=== PATIENT | female | born 1985 | race African-American/Black ===

== ENCOUNTER 2020-06-14 13:27 | Emergency (ER) | payer OTHER ==
--- OUTSIDE RECORDS SUMMARY | 2020-06-14 13:29 | XMS REPORT | Continuity of Care Document ---
:1985 Author Organization [facility] t Address [address] [place] [address] Care Team Providers Name Role Phone Doctor Unassigned, Name Attending Clinician Unavailable Teri FABIAN, L Attending Clinician Payers Payer Name Policy Type Policy Number Effective Date Expiration Date S ource Problems This patient has no known problems. Allergies, Adverse Reactions, Alerts Allergy Allergy Status Severity Reaction(s) Onset Inactive Treating Comm ents Source Name Type Date Date Clinician tramadol DA Active U 2018- [facility] 1-13 [place] 00:00: d 00 [facility] No Known DA Active U 2017-10 [facility] All[facility]ie 2-15 [place] [facility] 00:00: d 00 [facility] Medications This patient has no known medications. Procedures This patient has no known procedures. Encounters Start End Encounter Admission Attending Care Care Encounter Source Date/Time Date/Time Type Type Clinicians Facility Department ID 2020-02-20 2020-02-20 Orders Doctor CARLOS [id number] 00:00:00 00:00:00 Only Unassigned, JUANY [id number] [place] [facility] [id number] [id number] 2020-02-10 2020-02-10 Orders Doctor BREANNA [id number] 00:00:00 00:00:00 Only Unassigned, JUANY [id number] [place] [id number] [id number] 2020-01-31 2020-01-31 Orders Doctor BREANNA [id number] 00:00:00 00:00:00 Only Unassigned, JUANY [id number] [place] [id number] [id number] 2020-01-29 2020-01-29 Telephone Teri [place] [id number] 00:00:00 00:00:00 [facility] [id number] [facility] [id number] [facility] [phone] es [address] [place] 2020-01-28 2020-01-28 Telephone Teri [facility] [id number] 00:00:00 00:00:00 [facility] [id number] Surgical [id number] [facility] [phone] es [address] [place] 2019-12-26 2019-12-26 Telephone Teri ALBETSEY [id number] 00:00:00 00:00:00 [facility] [id number] [facility] [id number] [facility] [id number] es [address] [place] 2019-12-26 2019-12-26 Telephone Teri ALBETSEY [id number] 00:00:00 00:00:00 [facility] [id number] [facility] [id number] [facility] [phone] es [address] [place] 2019-12-16 2019-12-17 Office Teri ALBETSEY [id number] 16:15:48 10:13:00 Visit [facility] [id number] Surgical [id number] [facility] [phone] es [address] [place] Results This patient has no known results.
[2020-06-14] MEDS ORDERED: HYDROCODONE/APAP 10/325 TAB ONE (14:42)
[2020-06-14] MEDS ORDERED: KETOROLAC 30 MG/ML INJ ONE (14:43)
[2020-06-14] MEDS ORDERED: LIDOCAINE 4% PATCH ONE (14:43)
--- NOTE | 2020-06-14 16:34 | EDPHYS ---
Physician Documentation [facility] Name: Kristina Christensen Age: 35 yrs Sex: Female : 1985 Arrival Date: 06/14/2020 Time: 13:30 Bed 15 Private MD: KHARI Physician Eron Bowden HPI: 06/14 16:00 This 35 yrs old Black Female presents to ER via Ambulatory with complaints of Right Leg pm1 Pain. 16:00 The patient presents with pain, that is acute. The complaints affect the right buttocks pm1 radiating to right hamstring. Context: The problem was sustained at home, resulted from a mis-step, the patient is able to ambulate, with mild difficulty, Problem is a result from a previous injury: No. 16:00 Onset: The symptoms/episode began/occurred 2 day(s) ago. Modifying factors: The pm1 symptoms are alleviated by remaining still, the symptoms are aggravated by movement, weight bearing, bending knee. Associated signs and symptoms: Pertinent negatives calf tenderness, numbness, tingling, weakness. Treatment prior to arrival includes: no previous treatment. Severity of symptoms: in the emergency department the symptoms are actually worse. The patient has not experienced similar symptoms in the past. The patient has not recently seen a physician. 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 - Social history:: Smoking status: Patient denies any tobacco usage or history of. ROS: 16:00 Constitutional: Negative for fever, chills, and weight loss, Cardiovascular: Negative pm1 for chest pain, palpitations, and edema, Respiratory: Negative for shortness of breath, cough, wheezing, and pleuritic chest pain, Abdomen/GI: Negative for abdominal pain, nausea, vomiting, diarrhea, and constipation, Back: Negative for injury and pain. 16:00 Skin: Negative for injury, rash, and discoloration, Neuro: Negative for headache, weakness, numbness, tingling, and seizure. 16:00 MS/extremity: Positive for pain, of the right gluteus timoteo radiation to right hamstring. Exam: 16:00 Constitutional: This is a well developed, well nourished patient who is awake, alert, pm1 and in no acute distress. Head/Face: Normocephalic, atraumatic. 16:00 Back: No spinal tenderness. No costovertebral tenderness. Full range of motion. Skin: Warm, dry with normal turgor. Normal color with no rashes, no lesions, and no evidence of cellulitis. 16:00 Cardiovascular: Exam negative for acute changes, Rate: normal, Rhythm: regular, Pulses: no pulse deficits are appreciated. 16:00 Respiratory: Exam negative for acute changes, respiratory distress, shortness of breath. 16:00 Musculoskeletal/extremity: Extremities: grossly normal except: noted in the right gluteus timoteo: tenderness, palpation to right gluteus timoteo causes pain radiation down right leg, There is no evidence of decreased ROM, deformity. Vital Signs: 13:35 BP 148 / 98; Pulse 76; Resp 16; Temp 97.3; Pulse Ox 100% on R/A; Weight 108.86 kg; hb Height 5 ft. 4 in. (162.56 cm); Pain 8/10; 13:35 Body Mass Index 41.20 (108.86 kg, 162.56 cm) hb MDM: 14:08 Patient medically screened. pm1 15:59 Data reviewed: vital signs. Data interpreted: Pulse oximetry: on room air is 100 %. pm1 Interpretation: normal. Counseling: I had a detailed discussion with the patient and/or guardian regarding: the historical points, exam findings, and any diagnostic results supporting the discharge/admit diagnosis, the need for outpatient follow up, to return to the emergency department if symptoms worsen or persist or if there are any questions or concerns that arise at home. Administered Medications: 14:50 Drug: Hesperus 10 mg-325 mg 1 tabs Route: PO; 16:26 Follow up: Response: No adverse reaction 14:50 Drug: Lidoderm 5 % (700 mg/patch) 1 patches Route: Topical; Site: affected area; 14:50 Drug: TORadol 60 mg Route: IM; Site: right ventrogluteal; 16:26 Follow up: Response: No adverse reaction 16:35 Drug: Decadron 10 mg Route: IM; Site: right ventrogluteal; 19:26 Follow up: Response: No adverse reaction Disposition: 06/15 10:56 Co-signature as Attending Physician, Eron Bowden MD I agree with the assessment and [facility] plan of care. Disposition: 06/14/20 16:34 Discharged to Home. Impression: Sciatica, right side. - Condition is Stable. - Discharge Instructions: Sciatica. - Prescriptions for Lidoderm 5 % Topical adhesive patch,medicated - apply 1 patch by TRANSDERMAL route once daily As needed Apply for 12 hours on and 12 hours off within 24 hour period; 30 Transdermal Patch. Tylenol- Codeine #3 300-30 mg Oral Tablet - take 2 tablet by ORAL route every 6 hours As needed; 30 tablet. Medrol (Pedro Luis) 4 mg Oral Tablets, Dose Pack - take 1 tablet by ORAL route as directed - follow package instructions; 1 packet. - Medication Reconciliation Form, Thank You Letter, Antibiotic Education, Prescription Opioid Use form. - Follow up: Emergency Department; When: As needed; Reason: Worsening of condition. Follow up: Private Physician; When: 2 - 3 days; Reason: Recheck today's complaints, Continuance of care, Re-evaluation by your physician. - Problem is new. - Symptoms have improved. Signatures: Eron Bowden MD MD cha Marinas, Patrick, NP SKIN CARE THERAPIST pm1 Dagmar Colón, RN RN Glo Arriaza RN RN Corrections: (The following items were deleted from the chart) 06/14 17:11 16:34 06/14/2020 16:34 Discharged to Home. Impression: Sciatica, right side. Condition ah is Stable. Forms are Medication Reconciliation Form, Thank You Letter, Antibiotic Education, Prescription Opioid Use. Follow up: Emergency Department; When: As needed; Reason: Worsening of condition. Follow up: Private Physician; When: 2 - 3 days; Reason: Recheck today's complaints, Continuance of care, Re-evaluation by your physician. Problem is new. Symptoms have improved. pm1
--- NOTE | 2020-06-14 16:34 | ER ---
Nurse's Notes [facility] Name: Kristina Christensen Age: 35 yrs Sex: Female : 1985 Arrival Date: 06/14/2020 Time: 13:30 Bed 15 Private MD: Diagnosis: Sciatica, right side Presentation: 06/14 13:35 Chief complaint: Right thigh pain that radiates to right buttock and low back after hb slipping on stairs 2 days ago. Coronavirus screen: At this time, the client does not indicate any symptoms associated with coronavirus-19. Ebola Screen: No symptoms or risks identified at this time. Initial Sepsis Screen: Does the patient meet any 2 criteria? No. Patient's initial sepsis screen is negative. Does the patient have a suspected source of infection? No. Patient's initial sepsis screen is negative. Risk Assessment: Do you want to hurt yourself or someone else? Patient reports no desire to harm self or others. Onset of symptoms was June 12, 2020. 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 - Social history:: Smoking status: Patient denies any tobacco usage or history of. Screenin:52 Abuse screen: Denies threats or abuse. Nutritional screening: No deficits noted. Tuberculosis screening: No symptoms or risk factors identified. Fall Risk None identified. Assessment: 14:48 General: Appears uncomfortable, Behavior is calm, cooperative, appropriate for age. Pain: Complains of pain in right upper leg Pain radiates to right leg Pain currently is 8 out of 10 on a pain scale. Quality of pain is described as aching, Pain began 2-3 days ago. Neuro: Level of Consciousness is awake, alert, Oriented to person, place, time, situation, Appropriate for age. Cardiovascular: Heart tones S1 S2 Capillary refill < 3 seconds Patient's skin is warm and dry. Respiratory: Airway is patent Respiratory effort is even, unlabored, Respiratory pattern is regular, symmetrical. Musculoskeletal: Circulation, motion, and sensation intact. Capillary refill < 3 seconds, denies injury. Vital Signs: 13:35 BP 148 / 98; Pulse 76; Resp 16; Temp 97.3; Pulse Ox 100% on R/A; Weight 108.86 kg; hb Height 5 ft. 4 in. (162.56 cm); Pain 8/10; 13:35 Body Mass Index 41.20 (108.86 kg, 162.56 cm) hb ED Course: 13:30 Patient arrived in ED. mr 13:36 Triage completed. hb 13:37 Arm band placed on. hb 14:08 Jayce Lopez NP is PHCP. pm1 14:08 Eron Bowden MD is Attending Physician. pm1 14:26 Glo Arriaza, RN is Primary Nurse. 14:52 Patient has correct armband on for positive identification. Bed in low position. Call light in reach. Administered Medications: 14:50 Drug: [place] 10 mg-325 mg 1 tabs Route: PO; ah 16:26 Follow up: Response: No adverse reaction 14:50 Drug: Lidoderm 5 % (700 mg/patch) 1 patches Route: Topical; Site: affected area; 14:50 Drug: TORadol 60 mg Route: IM; Site: right ventrogluteal; 16:26 Follow up: Response: No adverse reaction 16:35 Drug: Decadron 10 mg Route: IM; Site: right ventrogluteal; ah 19:26 Follow up: Response: No adverse reaction Outcome: 16:34 Discharge ordered by . pm1 17:11 Patient left the ED. Signatures: Mary Ch Jayce Lopez, JOSE OCCASIONAL CAREGIVER pm1 Dagmar Colón RN RN Glo Arriaza RN RN
[2020-06-14] MEDS ORDERED: dexAMETHasone 10 MG/ML VIAL ONE (16:41)
[2020-06-14 17:46] VITALS: BP 148/98; TEMP 97.3; O2SAT 100
== END 2020-06-14 17:11 | disposition home or self-care (01) ==
LOC: ER 13:27
DX: M54.31 Sciatica, right side (principal); I10 Essential (primary) hypertension; G40.909 Epilepsy, unspecified, not intractable, without status epilepticus; Z85.41 Personal history of malignant neoplasm of cervix uteri
CPT/HCPCS: 96372; 99282; J1100

== ENCOUNTER 2020-11-10 15:03 | Emergency (ER) | payer SELFPAY ==
--- NOTE | 2020-11-10 19:09 | ER ---
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 No bleeding. No fever. Coronavirus screen: Client denies travel out of the [place] in the last 14 days. At this time, the client does not indicate any symptoms associated with coronavirus-19. Ebola Screen: Patient denies travel to an Ebola-affected area in the 21 days before illness onset. Initial Sepsis Screen: Does the patient meet any 2 criteria? HR > 90 bpm. No. Patient's initial sepsis screen is negative. Does the patient have a suspected source of infection? Yes: Skin breakdown/wound. Risk Assessment: Do you want to hurt yourself or someone else? Patient reports no desire to harm self or others. Onset of symptoms was November 10, 2020. 15:10 Method Of Arrival: Ambulatory ll1 15:10 Acuity: GAURAV 3 ll1 Historical: - Allergies: 15:13 tramadol; ll1 - PMHx: 15:13 Crohn's; Hypertension; Seizures; Cancer; remission from cervical cancer for 3.5 years; ll1 - Immunization history:: Flu vaccine is up to date. - Social history:: Smoking status: Patient denies any tobacco usage or history of. Vital Signs: 15:10 BP 153 / 100; Pulse 94; Resp 16; Temp 98.8; Pulse Ox 100% ; Weight 108.86 kg; Height 5 ll1 ft. 4 in. (162.56 cm); Pain 8/10; 15:10 Body Mass Index 41.20 (108.86 kg, 162.56 cm) ll1 ED Course: 15:04 Patient arrived in ED. as 15:12 Triage completed. ll1 15:13 Arm band placed on. ll1 Administered Medications: No medications were administered Outcome: 19:08 Patient left the ED. 1 Signatures: Lesly Cano Lynsay RN RN 1
--- OUTSIDE RECORDS SUMMARY | 2020-11-11 11:05 | XMS REPORT | Continuity of Care Document ---
:1985 Author Organization [facility] t Address [address] [place] [address] Care Team Providers Name Role Phone Chapis Phillip Attending Clinician Doctor Unassigned, Name Attending Clinician Unavailable Teri FABIAN L Attending Clinician Payers Payer Name Policy Type Policy Number Effective Date Expiration Date S ource Problems This patient has no known problems. Allergies, Adverse Reactions, Alerts Allergy Allergy Status Severity Reaction(s) Onset Inactive Treating Comm ents Source Name Type Date Date Clinician tramadol DA Active U 2019-0 [facility] 1-13 [place] [facility]: d [facility] No Known DA Active U 2017- [facility] 2-15 [place] [facility] d [facility] Medications This patient has no known medications. Procedures This patient has no known procedures. Encounters Start End Encounter Admission Attending Care Care Encounter Source Date/Time Date/Time Type Type Clinicians Facility Department ID 2020-11-10 2020-11-10 Emergency ALMA Dinh [id number] 18:08:00 20:09:00 Nohemi Vazquez 350.1.13.10 [place] [id number] [place] [id number] 2020-02-20 2020-02-20 Orders Doctor BREANNA 1.2.840.114 [id number] 00:00:00 00:00:00 Only Unassigned, JUANY [id number] [facility] [id number] [id number] [id number] 2020-02-10 2020-02-10 Orders Doctor BREANNA 1.2.840.114 [id number] 00:00:00 00:00:00 Only Unassigned, JUANY [id number] [facility] 4.2.7.2.686 [id number] [id number] 2020-01-31 2020-01-31 Orders Doctor BREANNA [id number] 00:00:00 00:00:00 Only Unassigned, JUANY [id number] [place] [facility] 4.2.7.2.686 [id number] [id number] 2020-01-29 2020-01-[address] [facility] [id number] 00:00:00 00:00:00 [facility] [id number] [facility] [id number] [facility] [id number] es [address] [place] 2020-01-28 2020-01-28 [facility] 1.2.840.114 [id number] 00:00:00 00:00:00 [facility] [id number] [facility] 4.2.7.2.686 Specialti [id number] es [address] [place] 2019-12-26 2019-12-26 [facility] 1.2.840.114 [id number] 00:00:00 00:00:00 [facility] [id number] [facility] 4.2.7.2.686 Specialti [id number] es [address] [place] 2019-12-26 2019-12-26 [facility] 1.2.840.114 [id number] 00:00:00 00:00:00 [facility] [id number] [facility] [id number] Specialti [id number] es [address] [place] 2019-12-16 2019-12-17 Office Teri [facility] [id number] 16:15:48 10:13:00 Visit [facility] [id number] Surgical 4.2.7.2.686 Specialti [id number] [address] [place] Results This patient has no known results.
== END 2020-11-10 19:08 | disposition left against medical advice (07) ==
LOC: ER 15:03
DX: Z02.9 Encounter for administrative examinations, unspecified (principal)
CPT/HCPCS: 99281

== ENCOUNTER 2022-03-06 21:42 | Emergency (ER) | payer OTHER ==
--- OUTSIDE RECORDS SUMMARY | 2022-03-06 21:52 | XMS REPORT | Continuity of Care Document ---
:1985 Author Organization [facility] t Address [address] [place] [address] Care Team Providers Name Role Phone MARVIN Foley [facility] Primary Care Physic gamal Unavailable Harris Attending Clinician Unavailable Kody GOMEZ Attending Clinician Unavailable Kody Gomez DO Attending Clinician Doctor Unassigned, Name Attending Clinician Unavailable Chapis Phillip Attending Clinician Jordan VEGAS, L Attending Clinician Unavailable SHIVANI DE OLIVEIRA Attending Clinician Unavailable MAXIMUS Attending Clinician Unavailable JACKELINE Attending Clinician Unavailable Shivani De Oliveira MD Attending Clinician Roni Cerda Attending Clinician Aravind Dodson Attending Clinician Darshan Mina DO Attending Clinician Yesi Kim MD Attending Clinician Yesi KIM Attending Clinician Unavailable Chapis SHRESTHA Attending Clinician Unavailable Alok BANDA S Attending Clinician KNOW Admitting Clinician Unavailable Physician, Primary or Family Admitting Clinician Unavailabl e Payers Payer Name Policy Type Policy Number Effective Date Expiration Date [facility] [id number] 2020 HEALTH 00:00:00 MEDICAID OF [place] [id number] 2019 00:00:00 MEDICAID [place] PENDING 2019 PENDING 00:00:00 Problems Condition Condition Condition Status Onset Resolution Last Treating Co mments Source Name Details Category Date Date Treatment Clinician Date Presence Presence Disease Active Unive rs of 52 mg of 52 mg 6-28 ity of levonorges [place] trel-relea trel-relea 00 Me dical sing sing Branch intrauteri intrauteri ne device ne device (IUD) (IUD) Prolapse Prolapse Disease Active Unive rs of of 6-18 ity of anterior anterior 00:00: [place] vaginal vaginal 00 Medical wall wall Branch Posterior Posterior Disease Active Uni vers vaginal vaginal 6-18 ity of wall wall 00:00: [place] prolapse prolapse 00 Medica l Branch Constipati Constipati Disease Active U nivers on, on, 6-18 ity of unspecifie unspecifie 00:[place] d d 00 Medical constipati constipati Br anch on type on type Weakness Weakness Disease Active Unive rs 9-02 ity of 00:00: [place] 00 Medical Branch Morbid Morbid Disease Active Univers obesity obesity 9 [place]y of with body with body 00:[place] mass index mass index 00 Me dical of of Branch 40.0-49.9 40.0-49.9 Morbid Morbid Disease Active Univers obesity obesity 9- ity of with body with body 00:[place] mass index mass index 00 Me dical of of Branch 40.0-49.9 40.0-49.9 Cyst of Cyst of Disease Active Univers right right 5-03 ity of ovary ovary 00:00: [place] 00 Medical Branch History of History of Disease Active U nivers cervical cervical 5-03 ity of cancer cancer 00:00: [place] 00 Medical Branch 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-03 ity of current current 00:00: [place] episode of episode of 00 Me dical major major Branch depressive depressive disorder disorder Normal Normal Disease Active Univers delivery delivery 6-03 ity of 00:00: [place] 00 Medical Branch Allergies, Adverse Reactions, Alerts Allergy Allergy Status Severity Reaction(s) Onset Inactive Treating Comm ents Source Name Type Date Date Clinician tramadol DA Active U 2018- [facility]13 [place] [facility] tramadol DA Active U RASH,HIVES [facility] [place] [facility]: [facility] No Known DA Active U 2017-10 [facility] Allergie 2-15 [place] [facility] 00:00: d 00 [facility] Tramadol Propensi Active Hives 2016-10 Univer s ty to 0-09 ity of adverse 00:00: [place] reaction 00 Medical s Branch TRAMADOL DRUG Active Hives 2016-10 Univers INGREDI 0-09 ity of 00:00: [place] 00 Medical Branch Social History Social Habit Start Date Stop Date Quantity Comments Source History SDOH University o f Alcohol Frequency [place] [facility] History SDOH University o f Alcohol Std [place] [facility] Drinks Branch History SDOH University o f Alcohol Binge [place] [facility] Exposure to Not sure University SARS-CoV-2 [facility] [place] [facility] (event) Branch Alcohol intake 2021-10-31 2021-10-31 Current drinker Unive rsity of 00:00:00 00:00:00 of alcohol [place] [facility] (finding) Branch Tobacco use and 2021-01-27 2021-01-27 Never used Universit y of exposure 00:00:00 00:00:00 [facility] Alcohol Comment 2018-01-31 2018-01-31 social Universit y of 00:00:00 00:00:00 [facility] Sex [birth year] Universit y of 00:00:00 00:00:00 [facility] Smoking Status Start Date Stop Date Source Former smoker 2021-01-27 00:00:00 2021-01-27 00:00:00 Universi ty of [facility] Never smoker [facility] xa Medical Branch Medications Ordered Filled Start Stop Current Ordering Indication Dosage Frequency Signature Comments Components Source Medication Medication Date Date Medication? Clinician (SIG) Name Name HYDROcodone 2021- No 1{tbl} 1 tablet, Univers -acetaminop 10-31 Oral, ity of hen (NORCO 19:45: 18:47 ONCE, 1 [place] 5) 5-325 mg 00 :00 dose, On Medi dejah tablet 1 Sun Branch tablet 10/31/21 at 1345, OSVALDO amoxicillin 2021- No [id number] 875mg Take 1 Univers 875 mg 10-31 tablet by ity of tablet 00:00: 05:59 mouth 2 [place] 00 :00 (two) Medical times Branch daily for 10 days. iopamidol 2020- No [id number] 100mL 100 mL, Univers (ISOVUE 06-19 Intravenou ity o f 370-500 mL) 00:00: 00:00 s, ONCE, 1 [place] injection 00 :00 dose, On Medica l 100 mL Fri Branch 06/18/21 at 1900, Routine iopamidol 2020- No [id number] 100mL 100 mL, Univers (ISOVUE 06-19 Intravenou ity o f 370-500 mL) 00:00: 00:00 s, ONCE, 1 [place] injection 00 :00 dose, On Medica l 100 mL Fri Branch 06/18/21 at 1900, Routine midazolam 2020- No 2mg 2 mg, IV Uni vers (VERSED) 06-18 Push, ity of injection 2 23:00: 21:56 ONCE, 1 [place] mg 00 :00 dose, On Medical Fri Branch 06/18/21 at 1800, STAT midazolam 2020- No 2mg 2 mg, IV Uni vers (VERSED) 06-18 Push, ity of injection 2 23:00: 21:56 ONCE, 1 [place] mg 00 :00 dose, On Medical Fri Branch 06/18/21 at 1800, STAT FENTanyl PF 2020- No 50ug 50 mcg, Un dani (SUBLIMAZE 06-18 Slow IV ity o f (PF)) 22:45: 21:41 Push, [place] injection 00 :00 ONCE, 1 Medical 50 mcg dose, On Branch Mon06/18/21 at 1745, STAT FENTanyl PF 2020- No 50ug 50 mcg, Un dani (SUBLIMAZE 06-18 Slow IV ity o f (PF)) 22:45: 21:41 Push, [place] injection 00 :00 ONCE, 1 Medical 50 mcg dose, On Branch Mon06/18/21 at 1745, STAT ondansetron 202- No 4mg 4 mg, Slow Univers (ZOFRAN 06-18 IV Push, ity of (PF)) 22:00: 21:16 ONCE, 1 [place] injection 4 00 :00 dose, On Medi dejah mg 06/18/21 at 1700, OSVALDO FENTanyl PF 2020- No 50ug 50 mcg, Un dani (SUBLIMAZE 06-18 Slow IV ity o f (PF)) 22:00: 21:16 Push, [place] injection 00 :00 ONCE, 1 Medical 50 mcg dose, On Branch Mon06/18/21 at 1700, STAT ondansetron 2020- No 4mg 4 mg, Slow Univers (ZOFRAN 06-18 IV Push, ity of (PF)) 22:00: 21:16 ONCE, 1 [place] injection 4 00 :00 dose, On Medi dejah mg Mon06/18/21 at 1700, OSVALDO FENTanyl PF 2020- No 50ug 50 mcg, Un dani (SUBLIMAZE 06-18 Slow IV ity o f (PF)) 22:00: 21:16 Push, [place] injection 00 :00 ONCE, 1 Medical 50 mcg dose, On Branch Mon06/18/21 at 1700, STAT ondansetron 0 Yes [id number] 4mg Take 1 Univers (ZOFRAN 9-17 tablet by ity of ODT) 4 mg 00:00: mouth [place] disintegrat 00 every 8 Medic al ing tablet (eight) Branch hours as needed for Nausea and Vomiting (N/V). acetaminoph 2020-0 Yes [id number] 1{tbl} Take 1 Un dani en-codeine 9-17 tablet by ity of 300-30 mg 00:00: mouth [place] tablet 00 every 4 Medical (four) Branch hours as needed for Pain (scale 7-10). Indication s: acute pain ondansetron 2020-0 Yes [id number] 4mg Take 1 Univers (ZOFRAN 9-17 tablet by ity of ODT) 4 mg 00:00: mouth [place] disintegrat 00 every 8 Medic al ing tablet (eight) Branch hours as needed for Nausea and Vomiting (N/V). acetaminoph 2020-0 Yes [id number] 1{tbl} Take 1 Un dani en-codeine 9-17 tablet by ity of 300-30 mg 00:00: mouth [place] tablet 00 every 4 Medical (four) Branch hours as needed for Pain (scale 7-10). Indication s: acute pain ondansetron 2020-0 Yes [id number] 4mg Take 1 Univers (ZOFRAN 9-17 tablet by ity of ODT) 4 mg 00:00: mouth [place] disintegrat 00 every 8 Medic al ing tablet (eight) Branch hours as needed for Nausea and Vomiting (N/V). acetaminoph 2020-0 Yes [id number] 1{tbl} Take 1 Un dani en-codeine 9-17 tablet by ity of 300-30 mg 00:00: mouth [place] tablet 00 every 4 Medical (four) Branch hours as needed for Pain (scale 7-10). Indication s: acute pain ondansetron 0 Yes [id number] 4mg Take 1 Univers (ZOFRAN 9-17 tablet by ity of ODT) 4 mg 00:00: mouth [place] disintegrat 00 every 8 Medic al ing tablet (eight) Branch hours as needed for Nausea and Vomiting (N/V). acetaminoph 2020-0 Yes [id number] 1{tbl} Take 1 Un dani en-codeine 9-17 tablet by ity of 300-30 mg 00:00: mouth [place] tablet 00 every 4 Medical (four) Branch hours as needed for Pain (scale 7-10). Indication s: acute pain levonorgest 2020- No [id number] 1{devic Univers reL 03-29 e} ity of (MIRENA) 15:45: 14:35 [place] IUD 1 00 :00 Advisory Services Associate Branch levonorgest 2020- No [id number] 1{devic 1 Device, Univers reL 03-29 e} Intrauteri ity of (MIRENA) 15:45: 14:35 ne, ONCE, [place] IUD 1 00 :00 1 dose, Advisory Services Associate [facility] 03/29/21 at 1045, Routine levonorgest 2020- No [id number] 1{devic Univers reL 03-29 e} ity of (MIRENA) 15:45: 14:35 [place] IUD 1 00 :00 [facility] Services Associate [place] levonorgest 2020- No [id number] 1{devic 1 Device, Univers reL 03-29 e} Intrauteri ity of (MIRENA) 15:45: 14:35 ne, ONCE, [place] IUD 1 00 :00 1 dose, [facility] Services Associate [facility] 03/29/21 at 1045, Routine miSOPROStoL Yes [id number] 200ug Take 1 Univers 200 mcg 6-09 tablet by ity of tablet 00:00: mouth [place] 00 SEE-INSTRU Medical CTIONS. Branch miSOPROStoL Yes [id number] 200ug Take 1 Univers 200 mcg 6-09 tablet by ity of tablet 00:00: mouth [place] 00 SEE-INSTRU Medical CTIONS. Branch miSOPROStoL Yes [id number] 200ug Take 1 Univers 200 mcg 6-09 tablet by ity of tablet 00:00: mouth [place] 00 SEE-INSTRU Medical CTIONS. Branch miSOPROStoL 2020- No [id number] 200ug Take 1 Univers 200 mcg 6-06 07- tablet by ity of tablet 00:00: 00:00 mouth [place] 00 :00 SEE-INSTRU Medical CTIONS. Branch miSOPROStoL 2020- No [id number] 200ug Take 1 Univers 200 mcg 6-06 07- tablet by ity of tablet 00:00: 00:00 mouth [place] 00 :00 SEE-INSTRU Medical CTIONS. Branch ketorolac 2020- No 30mg 30 mg, Unive rs (TORADOL) 02-22 05-24 Slow IV ity of injection 07:30: 06:33 Push, [place] 30 mg 00 :00 ONCE, 1 Medical dose, [facility] 02/22/21 at 0230, OSVALDO
Fa culty member approving Restricted medication : SHITALRiri RONI KCL 2020- No 20meq 20 mEq, IV Unive rs (POTASSIUM 02-22 Piggyback, it y of CHLORIDE) 06:30: 05:53 ONCE, 1 [place] 20 mEq in 00 :00 dose, Mon Medic al NaCl 0.9% 02/22/21 at [facility] (NS) 100 mL 0130, 100 piggyback mL KCL 2020- No 40meq 40 mEq, Univers (KLOR-CON 02-22 Oral, ity of M20) tablet 06:30: 05:45 ONCE, 1 [place] 40 mEq 00 :00 dose, Mon Medical 02/22/21 at [place] 0130, Routine acetaminoph 2020- No 1000mg 1,000 mg, Univers en 02-22 Oral, ity of (TYLENOL) 05:00: 04:02 ONCE, 1 [place] tablet 00 :00 dose, Mon Medical 1,000 mg 02/22/21 at [facility] h 0000, OSVALDO ondansetron 2020- No 4mg 4 mg, Slow Univers (ZOFRAN 02-22 IV Push, ity of (PF)) 05:00: 04:16 ONCE, 1 [place] injection 4 00 :00 dose, Mon Med ical mg 02/22/21 at [place] 0000, OSVALDO NaCl 0.9% 2020- No 1000mL at 999 Uni vers (NS) bolus 02-22 mL/hr, ity of infusion 05:00: 10:28 1,000 mL, Matt as 1,000 mL 00 :00 IV Medical Infusion, [place] ONCE, 1 dose, 02/22/21 at 0000, STAT iopamidol 2020- No [id number] 120mL 120 mL, Univers (ISOVUE 02-22 Intravenou ity o f 370-500 mL) 04:08: 04:11 s, ONCE, 1 [place] injection 00 :00 dose, Sun Medic al 120 mL 02/21/21 at [place] 2315, Routine polyethylen 2020- No [id number] 17g Take 17 g Univers e glycol 5-24 05-29 by mouth ity of 3350 00:00: 04:59 daily for [place] (MIRALAX) 00 :00 4 days. Medical 17 Branch gram/dose powder polyethylen 2020- No [id number] 17g Take 17 g Univers e glycol 5-24 05-29 by mouth ity of 3350 00:00: 04:59 daily for [place] (MIRALAX) 00 :00 4 days. Medical 17 Branch gram/dose powder polyethylen 2020- No [id number] 17g Take 17 g Univers e glycol 5-24 05-29 by mouth ity of 3350 00:00: 04:59 daily for [place] (MIRALAX) 00 :00 4 days. Medical 17 Branch gram/dose powder polyethylen 2020- No [id number] 17g Take 17 g Univers e glycol 5-24 05-29 by mouth ity of 3350 00:00: 04:59 daily for [place] (MIRALAX) 00 :00 4 days. Medical 17 Branch gram/dose powder miSOPROStoL Yes [id number] 200ug Take 1 Univers 200 mcg 4-28 tablet by ity of tablet 00:00: mouth 00 SEE-INSTRU Medical CTIONS. Branch Take one tab the night before and one tab the morning of procedure miSOPROStoL Yes [id number] 200ug Take 1 Univers 200 mcg 4-28 tablet by ity of tablet 00:00: mouth 00 SEE-INSTRU Medical CTIONS. Branch Take one tab the night before and one tab the morning of procedure miSOPROStoL Yes [id number] 200ug Take 1 Univers 200 mcg 4-28 tablet by ity of tablet 00:00: mouth 00 SEE-INSTRU Medical CTIONS. Branch Take one tab the night before and one tab the morning of procedure miSOPROStoL 2020- No [id number] 200ug Take 1 Univers 200 mcg 4-28 05-26 tablet by ity of tablet 00:00: 00:00 mouth [place] 00 :00 SEE-INSTRU Medical CTIONS. Branch Take one tab the night before and one tab the morning of procedure miSOPROStoL 2020- No [id number] 200ug Take 1 Univers 200 mcg 4-28 05-26 tablet by ity of tablet 00:00: 00:00 mouth [place] 00 :00 SEE-INSTRU Medical CTIONS. Branch Take one tab the night before and one tab the morning of procedure miSOPROStoL 2020- No [id number] 200ug Take 1 Univers 200 mcg 01-27 tablet by ity of tablet 00:00: 00:00 mouth [place] 00 :00 SEE-INSTRU Medical CTIONS. Branch Take one tab the night before and one tab the morning of procedure ketorolac 2020- No 15mg 15 mg, Unive rs (TORADOL) 01-19 Slow IV ity of injection 23:15: 22:18 Push, [place] 15 mg 00 :00 ONCE, 1 Medical dose, Tue [place] 01/19/21 at 1815, OSVALDO
Fa culty member approving Restricted medication : SAM EVANS ondansetron 2020- No 4mg 4 mg, Slow Univers (ZOFRAN 01-19 IV Push, ity of (PF)) 21:30: 21:29 ONCE, 1 [place] injection 4 00 :00 dose, Tue Med ical mg 01/19/21 at Branch 1630, OSVALDO iohexol 2020- No [id number] 120mL 120 mL, U nivers (OMNIPAQUE 01-19 Intravenou it y of 350 21:15: 21:15 s, ONCE, 1 [place] BULK-150 00 :00 dose, Tue Medica l mL) 01/19/21 at [place] injection 1615, 120 mL Routine ibuprofen Yes [id number] 800mg Take 1 U nivers 800 mg 4-20 tablet by ity of tablet 00:00: mouth [place] 00 every 8 Medical (eight) Branch hours as needed for Pain (scale 4-6). Take with food ibuprofen Yes [id number] 800mg Take 1 U nivers 800 mg 4-20 tablet by ity of tablet 00:00: mouth [place] 00 every 8 Medical (eight) Branch hours as needed for Pain (scale 4-6). Take with food ibuprofen Yes [id number] 800mg Take 1 U nivers 800 mg 4-20 tablet by ity of tablet 00:00: mouth [place] 00 every 8 Medical (eight) Branch hours as needed for Pain (scale 4-6). Take with food ibuprofen 2021-0 Yes [id number] 800mg Take 1 U nivers 800 mg 4-20 tablet by ity of tablet 00:00: mouth [place] 00 every 8 Medical (eight) Branch hours as needed for Pain (scale 4-6). Take with food ibuprofen 2021-0 Yes [id number] 800mg Take 1 U nivers 800 mg 4-20 tablet by ity of tablet 00:00: mouth [place] 00 every 8 Medical (eight) Branch hours as needed for Pain (scale 4-6). Take with food ibuprofen 2021-0 Yes [id number] 800mg Take 1 U nivers 800 mg 4-20 tablet by ity of tablet 00:00: mouth [place] 00 every 8 Medical (eight) Branch hours as needed for Pain (scale 4-6). Take with food ibuprofen 2021-0 Yes [id number] 800mg Take 1 U nivers 800 mg 4-20 tablet by ity of tablet 00:00: mouth [place] 00 every 8 Medical (eight) Branch hours as needed for Pain (scale 4-6). Take with food ibuprofen 2021-0 Yes [id number] 800mg Take 1 U nivers 800 mg 4-20 tablet by ity of tablet 00:00: mouth [place] 00 every 8 Medical (eight) Branch hours as needed for Pain (scale 4-6). Take with food ibuprofen 2021-0 Yes [id number] 800mg Take 1 U nivers 800 mg 4-20 tablet by ity of tablet 00:00: mouth [place] 00 every 8 Medical (eight) Branch hours as needed for Pain (scale 4-6). Take with food ibuprofen 2021-0 Yes [id number] 800mg Take 1 U nivers 800 mg 4-20 tablet by ity of tablet 00:00: mouth [place] 00 every 8 Medical (eight) Branch hours as needed for Pain (scale 4-6). Take with food ibuprofen 2021-0 Yes [id number] 800mg Take 1 U nivers 800 mg 4-20 tablet by ity of tablet 00:00: mouth [place] 00 every 8 Medical (eight) Branch hours as needed for Pain (scale 4-6). Take with food ibuprofen 2021-0 Yes [id number] 800mg Take 1 U nivers 800 mg 4-20 tablet by ity of tablet 00:00: mouth [place] 00 every 8 Medical (eight) Branch hours as needed for Pain (scale 4-6). Take with food ibuprofen 2021-0 Yes [id number] 800mg Take 1 U nivers 800 mg 4-20 tablet by ity of tablet 00:00: mouth [place] 00 every 8 Medical (eight) Branch hours as needed for Pain (scale 4-6). Take with food ibuprofen 2021-0 Yes [id number] 800mg Take 1 U nivers 800 mg 4-20 tablet by ity of tablet 00:00: mouth [place] 00 every 8 Medical (eight) Branch hours as needed for Pain (scale 4-6). Take with food ibuprofen 2021-0 Yes [id number] 800mg Take 1 U nivers 800 mg 4-20 tablet by ity of tablet 00:00: mouth [place] 00 every 8 Medical (eight) Branch hours as needed for Pain (scale 4-6). Take with food ibuprofen 2021-0 Yes [id number] 800mg Take 1 U nivers 800 mg 4-20 tablet by ity of tablet 00:00: mouth [place] 00 every 8 Medical (eight) Branch hours as needed for Pain (scale 4-6). Take with food ibuprofen 1-0 Yes [id number] 800mg Take 1 U nivers 800 mg 4-20 tablet by ity of tablet 00:00: mouth [place] 00 every 8 Medical (eight) Branch hours as needed for Pain (scale 4-6). Take with food ibuprofen 2021-0 Yes [id number] 800mg Take 1 U nivers 800 mg 4-20 tablet by ity of tablet 00:00: mouth [place] 00 every 8 Medical (eight) Branch hours as needed for Pain (scale 4-6). Take with food ibuprofen 2021-0 Yes [id number] 800mg Take 1 U nivers 800 mg 4-20 tablet by ity of tablet 00:00: mouth [place] 00 every 8 Medical (eight) Branch hours as needed for Pain (scale 4-6). Take with food ibuprofen 2021-0 Yes [id number] 800mg Take 1 U nivers 800 mg 4-20 tablet by ity of tablet 00:00: mouth [place] 00 every 8 Medical (eight) Branch hours as needed for Pain (scale 4-6). Take with food ibuprofen 2021-0 Yes [id number] 800mg Take 1 U nivers 800 mg 4-20 tablet by ity of tablet 00:00: mouth [place] 00 every 8 Medical (eight) Branch hours as needed for Pain (scale 4-6). Take with food ibuprofen 2020-0 Yes [id number] 800mg Take 1 U nivers 800 mg 4-20 tablet by ity of tablet 00:00: mouth [place] 00 every 8 Medical (eight) Branch hours as needed for Pain (scale 4-6). Take with food ibuprofen 2020-0 Yes [id number] 800mg Take 1 U nivers 800 mg 4-20 tablet by ity of tablet 00:00: mouth [place] 00 every 8 Medical (eight) Branch hours as needed for Pain (scale 4-6). Take with food ibuprofen 2020-0 Yes [id number] 800mg Take 1 U nivers 800 mg 4-20 tablet by ity of tablet 00:00: mouth [place] 00 every 8 Medical (eight) Branch hours as needed for Pain (scale 4-6). Take with food ibuprofen 2020-0 Yes [id number] 800mg Take 1 U nivers 800 mg 4-20 tablet by ity of tablet 00:00: mouth [place] 00 every 8 Medical (eight) Branch hours as needed for Pain (scale 4-6). Take with food acetaminoph 2020-0 2020- No [id number] 1{tbl} Take 1 U nivers en-codeine 4-20 04-28 tablet by ity of 300-30 mg 00:00: 04:59 mouth [place] tablet 00 :00 every 6 Medical (six) Branch hours as needed for Pain (scale 7-10) for up to 7 days. Indication s: acute pain cephALEXin 2021-0 Yes 500mg Take 500 Un dani 500 mg 4-14 mg by ity of capsule 00:00: mouth 2 00 (two) Medical times Branch daily. cephALEXin 2021-0 Yes 500mg Take 500 [place] 500 mg 4-14 mg by ity of capsule 00:00: mouth 2 00 (two) Medical times Branch daily. cephALEXin 2021-0 Yes 500mg Take 500 Un [place] 500 mg 4-14 mg by ity of capsule 00:00: mouth 2 00 (two) Medical times Branch daily. cephALEXin 2021-0 202- No 500mg Take 500 U nivers 500 mg 4-14 05-26 mg by ity of capsule 00:00: 00:00 mouth 2 [place] 00 :00 (two) Medical times Branch daily. cephALEXin 2020-0 202- No 500mg Take 500 U nivers 500 mg 4-14 05-26 mg by ity of capsule 00:00: 00:00 mouth 2 [place] 00 :00 (two) Medical times Branch daily. cephALEXin 2020-0 2020- No 500mg Take 500 U nivers 500 mg 4-14 05-26 mg by ity of capsule 00:00: 00:00 mouth 2 [place] 00 :00 (two) Medical times Branch daily. diclofenac 2020-0 Yes 75mg Take 1 Unive rs 75 mg EC 3-26 tablet by ity of tablet 00:00: mouth [place] (two) Medical times Branch daily with meals. diclofenac 2020-0 Yes 75mg Take 1 Unive rs 75 mg EC 3-26 tablet by ity of tablet 00:00: mouth [place] (two) Medical times Branch daily with meals. diclofenac 2020-0 Yes 75mg Take 1 Unive rs 75 mg EC 3-26 tablet by ity of tablet 00:00: mouth [place] (two) Medical times Branch daily with meals. diclofenac 2020-0 Yes 75mg Take 1 Unive rs 75 mg EC 3-26 tablet by ity of tablet 00:00: mouth [place] (two) Medical times Branch daily with meals. diclofenac 2020-0 Yes 75mg Take 1 Unive rs 75 mg EC 3-26 tablet by ity of tablet 00:00: mouth [place] (two) Medical times Branch daily with meals. diclofenac 2020-0 Yes 75mg Take 1 Unive rs 75 mg EC 3-26 tablet by ity of tablet 00:00: mouth [place] (two) Medical times Branch daily with meals. diclofenac 2020-0 Yes 75mg Take 1 Unive rs 75 mg EC 3-26 tablet by ity of tablet 00:00: mouth [place] (two) Medical times Branch daily with meals. diclofenac 2020-0 Yes 75mg Take 1 Unive rs 75 mg EC 3-26 tablet by ity of tablet 00:00: mouth [place] (two) Medical times Branch daily with meals. diclofenac 2020-0 Yes 75mg Take 1 Unive rs 75 mg EC 3-26 tablet by ity of tablet 00:00: mouth 2 [place] 00 (two) Medical times Branch daily with meals. diclofenac 2020-0 Yes 75mg Take 1 Unive rs 75 mg EC 3-26 tablet by ity of tablet 00:00: mouth (two) Medical times Branch daily with meals. diclofenac 2019-0 2020- No 75mg Take 1 Univ ers 75 mg EC 3-26 04-28 tablet by ity o f tablet 00:00: 00:00 mouth 2 [place] 00 :00 (two) Medical times Branch daily with meals. diclofenac 2020-0 2020- No 75mg Take 1 Univ ers 75 mg EC 3-26 04-28 tablet by ity o f tablet 00:00: 00:00 mouth 2 00 : (two) Medical times Branch daily with meals. cloNIDine 2019-0 Yes [id number] .1mg Take 1 Un dani 0.1 mg 7-24 tablet by ity of tablet 00:00: mouth (two) Medical times Branch daily. cloNIDine 2019-0 Yes [id number] .1mg Take 1 Un dani 0.1 mg 7-24 tablet by ity of tablet 00:00: mouth (two) Medical times Branch daily. cloNIDine 2019-0 Yes [id number] .1mg Take 1 Un dani 0.1 mg 7-24 tablet by ity of tablet 00:00: mouth (two) Medical times Branch daily. cloNIDine 2019-0 Yes [id number] .1mg Take 1 Un dani 0.1 mg 7-24 tablet by ity of tablet 00:00: mouth (two) Medical times Branch daily. cloNIDine 2019-0 Yes [id number] .1mg Take 1 Un dani 0.1 mg 7-24 tablet by ity of tablet 00:00: mouth (two) Medical times Branch daily. cloNIDine 2019-0 Yes [id number] .1mg Take 1 Un dani 0.1 mg 7-24 tablet by ity of tablet 00:00: mouth (two) Medical times Branch daily. cloNIDine 2019-0 Yes [id number] .1mg Take 1 Un d[place] 0.1 mg 7-24 tablet by ity of tablet 00:00: mouth (two) Medical times Branch daily. cloNIDine 2019-0 Yes [id number] .1mg Take 1 Un d[place] 0.1 mg 7-24 tablet by ity of tablet 00:00: mouth (two) Medical times Branch daily. cloNIDine 2019-0 Yes [id number] .1mg Take 1 Un [place] 0.1 mg 7-24 tablet by ity of tablet 00:00: mouth (two) Medical times Branch daily. cloNIDine 2019-0 Yes [id number] .1mg Take 1 Un d[place] 0.1 mg 7-24 tablet by ity of tablet 00:00: mouth (two) Medical times Branch daily. cloNIDine 2019-0 Yes [id number] .1mg Take 1 Un dani 0.1 mg 7-24 tablet by ity of tablet 00:00: mouth (two) Medical times Branch daily. cloNIDine 2019-0 Yes [id number] .1mg Take 1 Un [facility] 0.1 mg 7-24 tablet by ity of tablet 00:00: mouth (two) Medical times Branch daily. cloNIDine 2019-0 Yes [id number] .1mg Take 1 [place] 0.1 mg 7-24 tablet by ity of tablet 00:00: mouth (two) Medical times Branch daily. cloNIDine 2019-0 Yes [id number] .1mg Take 1 Un dani 0.1 mg 7-24 tablet by [facility] tablet 00:00: mouth (two) [facility] times [facility] daily. cloNIDine 2019-0 Yes [id number] .1mg Take 1 [facility] 0.1 mg 7-24 tablet by [facility] tablet 00:00: mouth (two) [facility] times [facility] daily. cloNIDine 2019-0 Yes [id number] .1mg Take 1 [facility] 0.1 mg 7-24 tablet by [facility] tablet 00:00: mouth (two) [facility] times [facility] daily. cloNIDine 2019-0 Yes [id number] .1mg Take 1 [facility] 0.1 mg 7-24 tablet by [facility] tablet 00:00: mouth (two) [facility] times [facility] daily. cloNIDine 2019-0 Yes [id number] .1mg Take 1 [facility] 0.1 mg 7-24 tablet by [facility] tablet 00:00: mouth 2 (two) Medical times [facility] daily. cloNIDine 2019-0 Yes [id number] .1mg Take 1 [facility] 0.1 mg 7-24 tablet by [facility] tablet 00:00: mouth (two) Medical times [facility] daily. cloNIDine 2019-0 Yes [id number] .1mg Take 1 [facility] 0.1 mg 7-24 tablet by [facility] tablet 00:00: mouth (two) [facility] times [facility] daily. cloNIDine 2019-0 Yes [id number] .1mg Take 1 [facility] 0.1 mg 7-24 tablet by [facility] tablet 00:00: mouth (two) [facility] times [facility] daily. cloNIDine 2019-0 Yes [id number] .1mg Take 1 [facility] 0.1 mg 7-24 tablet by [facility] tablet 00:00: mouth (two) Medical times [facility] daily. cloNIDine 2019-0 Yes [id number] .1mg Take 1 [facility] 0.1 mg 7-24 tablet by [facility] tablet 00:00: mouth (two) Medical times [facility] daily. cloNIDine 2019-0 Yes [id number] .1mg Take 1 [facility] 0.1 mg 7-24 tablet by [facility] tablet 00:00: mouth (two) Medical times [facility] daily. cloNIDine 2019-0 Yes [id number] .1mg Take 1 [facility] 0.1 mg 7-24 tablet by [facility] tablet 00:00: mouth (two) [facility] times [facility] daily. cloNIDine 2019-0 Yes [id number] .1mg Take 1 [facility] 0.1 mg 7-24 tablet by [facility] tablet 00:00: mouth (two) Medical times [facility] daily. cloNIDine 2019-0 Yes [id number] .1mg Take 1 [facility] 0.1 mg 7-24 tablet by [facility] tablet 00:00: mouth (two) Medical times [facility] daily. cloNIDine 2019-0 Yes [id number] .1mg Take 1 [facility] 0.1 mg 7-24 tablet by [facility] tablet 00:00: mouth (two) Medical times [facility] daily. cloNIDine 2019-0 Yes [id number] .1mg Take 1 [facility] 0.1 mg 7-24 tablet by [facility] tablet 00:00: mouth 2 (two) Medical times [facility] daily. cloNIDine 2019-0 Yes [id number] .1mg Take 1 [facility] 0.1 mg 7-24 tablet by [facility] tablet 00:00: mouth 2 [place] 00 (two) Medical times [facility] daily. cloNIDine 2019-0 Yes [id number] .1mg Take 1 [facility] 0.1 mg 7-24 tablet by [facility] tablet 00:00: mouth (two) Medical times [facility] daily. cloNIDine 2019-0 Yes [id number] .1mg Take 1 [facility] 0.1 mg 7-24 tablet by [facility] tablet 00:00: mouth (two) Medical times [facility] daily. cloNIDine 2019-0 Yes [id number] .1mg Take 1 [facility] 0.1 mg 7-24 tablet by [facility] tablet 00:00: mouth 2 (two) Medical times [facility] daily. cloNIDine 2019-0 Yes [id number] .1mg Take 1 [facility] 0.1 mg 7-24 tablet by [facility] tablet 00:00: mouth (two) Medical times [facility] daily. cloNIDine 2019-0 Yes [id number] .1mg Take 1 [facility] 0.1 mg 7-24 tablet by [facility] tablet 00:00: mouth (two) Medical times [facility] daily. cloNIDine 2019-0 Yes [id number] .1mg Take 1 [facility] 0.1 mg 7-24 tablet by [facility] tablet 00:00: mouth (two) Medical times [facility] daily. cloNIDine 2019-0 Yes [id number] .1mg Take 1 [facility] 0.1 mg 7-24 tablet by [facility] tablet 00:00: mouth (two) Medical times [facility] daily. cloNIDine 2019-0 Yes [id number] .1mg Take 1 [facility] 0.1 mg 7-24 tablet by [facility] tablet 00:00: mouth (two) Medical times [facility] daily. cloNIDine 2019-0 Yes [id number] .1mg Take 1 [facility] 0.1 mg 7-24 tablet by [facility] tablet 00:00: mouth 2 (two) Medical times [facility] daily. acetaminoph 2019-0 Yes [id number] 1{tbl} Take 1 [facility] en-codeine 1-16 tablet by [facility] (TYLENOL-CO 00:00: mouth [place] DEINE #3) 00 every 4 Medical 300-30 mg (four) Branch tablet hours as needed for Pain (scale 7-10). amoxicillin 2019-0 Yes [id number] 500mg Take 1 [facility] 500 mg 1-16 capsule by [facility] capsule 00:00: mouth 3 [place] 00 (three) Medical times [facility] daily. acetaminoph Yes [id number] 1{tbl} Take 1 [facility] en-codeine 1-16 tablet by [facility] (TYLENOL-CO 00:00: mouth [place] DEINE #3) 00 every 4 Medical 300-30 mg (four) Branch tablet hours as needed for Pain (scale 7-10). amoxicillin Yes [id number] 500mg Take 1 [facility] 500 mg 1-16 capsule by [facility] capsule 00:00: mouth 3 [place] 00 (three) Medical times [facility] daily. acetaminoph Yes [id number] 1{tbl} Take 1 [facility] en-codeine 1-16 tablet by [facility] (TYLENOL-CO 00:00: mouth [place] DEINE #3) 00 every 4 Medical 300-30 mg (four) Branch tablet hours as needed for Pain (scale 7-10). amoxicillin Yes [id number] 500mg Take 1 [facility] 500 mg 1-16 capsule by [facility] capsule 00:00: mouth 3 [place] 00 (three) Medical times [facility] daily. acetaminoph Yes [id number] 1{tbl} Take 1 [facility] en-codeine 1-16 tablet by [facility] (TYLENOL-CO 00:00: mouth [place] DEINE #3) 00 every 4 Medical 300-30 mg (four) Branch tablet hours as needed for Pain (scale 7-10). amoxicillin Yes [id number] 500mg Take 1 [facility] 500 mg 1-16 capsule by [facility] capsule 00:00: mouth 3 [place] 00 (three) Medical times [facility] daily. acetaminoph Yes [id number] 1{tbl} Take 1 [facility] en-codeine 1-16 tablet by [facility] (TYLENOL-CO 00:00: mouth [place] DEINE #3) 00 every 4 Medical 300-30 mg (four) Branch tablet hours as needed for Pain (scale 7-10). amoxicillin Yes [id number] 500mg Take 1 [facility] 500 mg 1-16 capsule by [facility] capsule 00:00: mouth 3 [place] 00 (three) Medical times [facility] daily. acetaminoph Yes [id number] 1{tbl} Take 1 [facility] en-codeine 1-16 tablet by [facility] (TYLENOL-CO 00:00: mouth [place] DEINE #3) 00 every 4 Medical 300-30 mg (four) Branch tablet hours as needed for Pain (scale 7-10). amoxicillin 0 Yes [id number] 500mg Take 1 [facility] 500 mg 1-16 capsule by [facility] capsule 00:00: mouth 3 [place] 00 (three) Medical times [facility] daily. acetaminoph Yes [id number] 1{tbl} Take 1 [facility] en-codeine 1-16 tablet by [facility] (TYLENOL-CO 00:00: mouth [place] DEINE #3) 00 every 4 Medical 300-30 mg (four) Branch tablet hours as needed for Pain (scale 7-10). amoxicillin Yes [id number] 500mg Take 1 [facility] 500 mg 1-16 capsule by [facility] capsule 00:00: mouth 3 [place] 00 (three) Medical times [facility] daily. acetaminoph Yes [id number] 1{tbl} Take 1 [facility] en-codeine 1-16 tablet by [facility] (TYLENOL-CO 00:00: mouth [place] DEINE #3) 00 every 4 Medical 300-30 mg (four) Branch tablet hours as needed for Pain (scale 7-10). amoxicillin Yes [id number] 500mg Take 1 [facility] 500 mg 1-16 capsule by [facility] capsule 00:00: mouth 3 [place] 00 (three) Medical times [facility] daily. acetaminoph Yes [id number] 1{tbl} Take 1 [facility] en-codeine 1-16 tablet by [facility] (TYLENOL-CO 00:00: mouth [place] DEINE #3) 00 every 4 Medical 300-30 mg (four) Branch tablet hours as needed for Pain (scale 7-10). amoxicillin Yes [id number] 500mg Take 1 [facility] 500 mg 1-16 capsule by [facility] capsule 00:00: mouth 3 [place] 00 (three) Medical times [facility] daily. acetaminoph Yes [id number] 1{tbl} Take 1 [facility] en-codeine 1-16 tablet by [facility] (TYLENOL-CO 00:00: mouth [place] DEINE #3) 00 every 4 Medical 300-30 mg (four) Branch tablet hours as needed for Pain (scale 7-10). amoxicillin 2019-0 Yes [id number] 500mg Take 1 [facility] 500 mg 1-16 capsule by [facility] capsule 00:00: mouth 3 [place] 00 (three) Medical times [facility] daily. acetaminoph 2019-0 Yes [id number] 1{tbl} Take 1 [facility] en-codeine 1-16 tablet by [facility] (TYLENOL-CO 00:00: mouth [place] DEINE #3) 00 every 4 Medical 300-30 mg (four) Branch tablet hours as needed for Pain (scale 7-10). amoxicillin 2018-0 Yes [id number] 500mg Take 1 [facility] 500 mg 1-16 capsule by [facility] capsule 00:00: mouth 3 [place] 00 (three) Medical times [facility] daily. acetaminoph 2018-0 Yes [id number] 1{tbl} Take 1 [facility] en-codeine 1-16 tablet by [facility] (TYLENOL-CO 00:00: mouth [place] DEINE #3) 00 every 4 Medical 300-30 mg (four) Branch tablet hours as needed for Pain (scale 7-10). amoxicillin 0 Yes [id number] 500mg Take 1 [facility] 500 mg 1-16 capsule by [facility] capsule 00:00: mouth 3 [place] 00 (three) Medical times [facility] daily. acetaminoph 2018-0 Yes [id number] 1{tbl} Take 1 [facility] en-codeine 1-16 tablet by [facility] (TYLENOL-CO 00:00: mouth [place] DEINE #3) 00 every 4 Medical 300-30 mg (four) Branch tablet hours as needed for Pain (scale 7-10). amoxicillin 2018-0 Yes [id number] 500mg Take 1 [facility] 500 mg 1-16 capsule by [facility] capsule 00:00: mouth 3 [place] 00 (three) Medical times [facility] daily. acetaminoph 2019-0 Yes [id number] 1{tbl} Take 1 [facility] en-codeine 1-16 tablet by [facility] (TYLENOL-CO 00:00: mouth [place] DEINE #3) 00 every 4 Medical 300-30 mg (four) Branch tablet hours as needed for Pain (scale 7-10). amoxicillin 2019-0 Yes [id number] 500mg Take 1 [facility] 500 mg 1-16 capsule by [facility] capsule 00:00: mouth 3 [place] 00 (three) Medical times [facility] daily. acetaminoph Yes [id number] 1{tbl} Take 1 [facility] en-codeine 1-16 tablet by [facility] of (TYLENOL-CO 00:00: mouth [place] DEINE #3) 00 every 4 Medical 300-30 mg (four) Branch tablet hours as needed for Pain (scale 7-10). amoxicillin Yes [id number] 500mg Take 1 [facility] 500 mg 1-16 capsule by [facility] capsule 00:00: mouth 3 [place] 00 (three) Medical times [facility] daily. acetaminoph Yes [id number] 1{tbl} Take 1 [facility] en-codeine 1-16 tablet by [facility] of (TYLENOL-CO 00:00: mouth [place] DEINE #3) 00 every 4 Medical 300-30 mg (four) Branch tablet hours as needed for Pain (scale 7-10). amoxicillin Yes [id number] 500mg Take 1 [facility] 500 mg 1-16 capsule by [facility] capsule 00:00: mouth 3 [place] 00 (three) Medical times [facility] daily. acetaminoph 2020- No [id number] 1{tbl} Take 1 [facility] en-codeine 1-16 04-28 tablet by [facility] (TYLENOL-CO 00:00: 00:00 mouth [place] DE[place] #3[place] 00 :00 every 4 Medical 300-30 mg (four) Branch tablet hours as needed for Pain (scale 7-10). amoxicillin 2020- No [id number] 500mg Take 1 [facility] 500 mg 1-16 04-28 capsule by [facility] capsule 00:00: 00:00 mouth 3 [place] 00 :00 (three) Medical times [facility] daily. acetaminoph 2020- No [id number] 1{tbl} Take 1 [facility] en-codeine 1-16 04-28 tablet by [facility] (TYLENOL-CO 00:00: 00:00 mouth [place] [facility] #3[place] 00 :00 every 4 Medical 300-30 mg (four) Branch tablet hours as needed for Pain (scale 7-10). amoxicillin 2020- No [id number] 500mg Take 1 [facility] 500 mg 1-16 04-28 capsule by [facility] capsule 00:00: 00:00 mouth 3 [place] 00 :00 (three) Medical times Branch daily. cyclobenzap 2018-0 Yes 5mg Take 1 [facility] ers rine 5 mg 9-21 tablet by [facility] o f tablet 00:00: mouth 3 00 (three) Medical times Branch daily. cyclobenzap 2018-0 Yes 5mg Take 1 [facility] ers rine 5 mg 9-21 tablet by [facility] o f tablet 00:00: mouth 3 [place] 00 (three) Medical times Branch daily. cyclobenzap 2018-0 Yes 5mg Take 1 [facility] rine 5 mg 9-21 tablet by [facility] o f tablet 00:00: mouth 3 [place] 00 (three) Medical times [facility] daily. cyclobenzap 2018-0 Yes 5mg Take 1 [facility] rine 5 mg 9-21 tablet by [facility] f tablet 00:00: mouth 3 00 (three) Medical times [facility] daily. acetaminoph 2018-0 Yes 1{tbl} Take 1 [facility] en-codeine 9-21 tablet by [facility] (TYLENOL-CO 00:00: mouth [place] DEINE #3) 00 every 6 Medical 300-30 mg (six) Branch tablet hours as needed for Pain (scale 4-6) (for cough). cyclobenzap 2018-0 Yes 5mg Take 1 [facility] rine 5 mg 9-21 tablet by [facility] o f tablet 00:00: mouth 3 00 (three) Medical times [facility] daily. acetaminoph 2018-0 Yes 1{tbl} Take 1 [facility] en-codeine 9-21 tablet by [facility] of (TYLENOL-CO 00:00: mouth [place] DEINE #3) 00 every 6 Medical 300-30 mg (six) Branch tablet hours as needed for Pain (scale 4-6) (for cough). cyclobenzap 2018-0 Yes 5mg Take 1 [facility] rine 5 mg 9-21 tablet by [facility] o f tablet 00:00: mouth 3 [place] 00 (three) Medical times Branch daily. acetaminoph 2018-0 Yes 1{tbl} Take 1 [facility] en-codeine 9-21 tablet by [facility] of (TYLENOL-CO 00:00: mouth [place] DEINE #3) 00 every 6 Medical 300-30 mg (six) Branch tablet hours as needed for Pain (scale 4-6) (for cough). cyclobenzap 2018-0 Yes 5mg Take 1 [facility] rine 5 mg 9-21 tablet by [facility] o f tablet 00:00: mouth 3 [place] 00 (three) Medical times [facility] daily. acetaminoph 2018-0 Yes 1{tbl} Take 1 [facility] en-codeine 9-21 tablet by [facility] of (TYLENOL-CO 00:00: mouth [place] DEINE #3) 00 every 6 Medical 300-30 mg (six) Branch tablet hours as needed for Pain (scale 4-6) (for cough). cyclobenzap 2018-0 Yes 5mg Take 1 [facility] rine 5 mg 9-21 tablet by [facility] o f tablet 00:00: mouth 3 [place] 00 (three) Medical times [facility] daily. acetaminoph 2018-0 Yes 1{tbl} Take 1 [facility] en-codeine 9-21 tablet by [facility] (TYLENOL-CO 00:00: mouth [place] DEINE #3) 00 every 6 Medical 300-30 mg (six) Branch tablet hours as needed for Pain (scale 4-6) (for cough). cyclobenzap 2018-0 Yes 5mg Take 1 [facility] r[facility] 5 mg 9-21 tablet by [facility] o f tablet 00:00: mouth 3 [place] 00 (three) Medical times Branch daily. acetaminoph 2018-0 Yes 1{tbl} Take 1 [facility] en-codeine 9-21 tablet by [facility] of (TYLENOL-CO 00:00: mouth [place] DEINE #3) 00 every 6 Medical 300-30 mg (six) Branch tablet hours as needed for Pain (scale 4-6) (for cough). cyclobenzap 2018-0 Yes 5mg Take 1 [facility] rine 5 mg 9-21 tablet by [facility] o f tablet 00:00: mouth 3 [place] 00 (three) Medical times Branch daily. acetaminoph 2018-0 Yes 1{tbl} Take 1 [facility] en-codeine 9-21 tablet by [facility] (TYLENOL-CO 00:00: mouth [place] DEINE #3) 00 every 6 Medical 300-30 mg (six) Branch tablet hours as needed for Pain (scale 4-6) (for cough). cyclobenzap 2018-0 Yes 5mg Take 1 [facility] rine 5 mg 9-21 tablet by [facility] o f tablet 00:00: mouth 3 [place] 00 (three) Medical times Branch daily. acetaminoph 2018-0 Yes 1{tbl} Take 1 [facility] en-codeine 9-21 tablet by [facility] of (TYLENOL-CO 00:00: mouth [place] DEINE #3) 00 every 6 Medical 300-30 mg (six) Branch tablet hours as needed for Pain (scale 4-6) (for cough). cyclobenzap 2018-0 Yes 5mg Take 1 [facility] rine 5 mg 9-21 tablet by [facility] o f tablet 00:00: mouth 3 [place] 00 (three) Medical times Branch daily. acetaminoph 2018-0 Yes 1{tbl} Take 1 [facility] en-codeine 9-21 tablet by [facility] of (TYLENOL-CO 00:00: mouth [place] DEINE #3) 00 every 6 Medical 300-30 mg (six) Branch tablet hours as needed for Pain (scale 4-6) (for cough). cyclobenzap 2018-0 Yes 5mg Take 1 [facility] r[facility] 5 mg 9-21 tablet by [facility] o f tablet 00:00: mouth 3 [place] 00 (three) Medical times Branch daily. acetaminoph 2018-0 Yes 1{tbl} Take 1 [facility] en-codeine 9-21 tablet by [facility] of (TYLENOL-CO 00:00: mouth [place] DEINE #3) 00 every 6 Medical 300-30 mg (six) Branch tablet hours as needed for Pain (scale 4-6) (for cough). cyclobenzap 2018-0 Yes 5mg Take 1 [facility] rine 5 mg 9-21 tablet by [facility] o f tablet 00:00: mouth 3 [place] 00 (three) Medical times Branch daily. acetaminoph 2018-0 Yes 1{tbl} Take 1 [facility] en-codeine 9-21 tablet by [facility] of (TYLENOL-CO 00:00: mouth [place] DEINE #3) 00 every 6 Medical 300-30 mg (six) Branch tablet hours as needed for Pain (scale 4-6) (for cough). cyclobenzap 2018-0 Yes 5mg Take 1 [facility] r[facility] 5 mg 9-21 tablet by [facility] o f tablet 00:00: mouth 3 [place] 00 (three) Medical times Branch daily. acetaminoph 2018-0 Yes 1{tbl} Take 1 [facility] en-codeine 9-21 tablet by [facility] of (TYLENOL-CO 00:00: mouth [place] DEINE #3) 00 every 6 Medical 300-30 mg (six) Branch tablet hours as needed for Pain (scale 4-6) (for cough). cyclobenzap 2018-0 Yes 5mg Take 1 [facility] rine 5 mg 9-21 tablet by [facility] o f tablet 00:00: mouth 3 [place] 00 (three) Medical times Branch daily. acetaminoph 2018-0 Yes 1{tbl} Take 1 [facility] en-codeine 9-21 tablet by [facility] of (TYLENOL-CO 00:00: mouth [place] DEINE #3) 00 every 6 Medical 300-30 mg (six) Branch tablet hours as needed for Pain (scale 4-6) (for cough). cyclobenzap 2018-0 Yes 5mg Take 1 [facility] rine 5 mg 9-21 tablet by [facility] o f tablet 00:00: mouth 3 [place] 00 (three) Medical times Branch daily. acetaminoph 2018-0 Yes 1{tbl} Take 1 [facility] en-codeine 9-21 tablet by [facility] of (TYLENOL-CO 00:00: mouth [place] DEINE #3) 00 every 6 Medical 300-30 mg (six) Branch tablet hours as needed for Pain (scale 4-6) (for cough). cyclobenzap 2018-0 Yes 5mg Take 1 [facility] rine 5 mg 9-21 tablet by [facility] o f tablet 00:00: mouth 3 [place] 00 (three) Medical times Branch daily. acetaminoph 2018-0 Yes 1{tbl} Take 1 [facility] en-codeine 9-21 tablet by [facility] of (TYLENOL-CO 00:00: mouth [place] DEINE #3) 00 every 6 Medical 300-30 mg (six) Branch tablet hours as needed for Pain (scale 4-6) (for cough). cyclobenzap 2018-0 Yes 5mg Take 1 [facility] r[facility] 5 mg 9-21 tablet by [facility] o f tablet 00:00: mouth 3 [place] 00 (three) Medical times Branch daily. acetaminoph 2018-0 Yes 1{tbl} Take 1 [facility] en-codeine 9-21 tablet by [facility] of (TYLENOL-CO 00:00: mouth [place] DEINE #3) 00 every 6 Medical 300-30 mg (six) Branch tablet hours as needed for Pain (scale 4-6) (for cough). cyclobenzap 2018-0 Yes 5mg Take 1 [facility] r[facility] 5 mg 9-21 tablet by [facility] o f tablet 00:00: mouth 3 00 (three) Medical times Branch daily. cyclobenzap 2018-0 Yes 5mg Take 1 [facility] r[facility] 5 mg 9-21 tablet by [facility] o f tablet 00:00: mouth 3 00 (three) Medical times Branch daily. cyclobenzap 2018-0 Yes 5mg Take 1 [facility] r[facility] 5 mg 9-21 tablet by [facility] o f tablet 00:00: mouth 3 00 (three) Medical times Branch daily. cyclobenzap 2018-0 Yes 5mg Take 1 [facility] r[facility] 5 mg 9-21 tablet by [facility] o f tablet 00:00: mouth 3 (three) Medical times Branch daily. cyclobenzap 2018-0 Yes 5mg Take 1 [facility] r[facility] 5 mg 9-21 tablet by [facility] o f tablet 00:00: mouth 3 (three) Medical times Branch daily. cyclobenzap 2018-0 Yes 5mg Take 1 [facility] r[facility] 5 mg 9-21 tablet by [facility] o f tablet 00:00: mouth (three) Medical times [facility] daily. cyclobenzap 2018-0 Yes 5mg Take 1 [facility] r[facility] 5 mg 9-21 tablet by [facility] o f tablet 00:00: mouth (three) Medical times [facility] daily. cyclobenzap 2018-0 Yes 5mg Take 1 [facility] 5 mg 9-21 tablet by [facility] o f tablet 00:00: mouth 3 (three) Medical times Branch daily. cyclobenzap 2018-0 Yes 5mg Take 1 [facility] r[facility] 5 mg 9-21 tablet by [facility] o f tablet 00:00: mouth 3 (three) Medical times Branch daily. cyclobenzap 2018-0 Yes 5mg Take 1 [facility] r[facility] 5 mg 9-21 tablet by [facility] o f tablet 00:00: mouth 3 (three) Medical times Branch daily. cyclobenzap 2018-0 Yes 5mg Take 1 [facility] r[facility] 5 mg 9-21 tablet by [facility] o f tablet 00:00: mouth 3 (three) Medical times Branch daily. cyclobenzap 2018-0 Yes 5mg Take 1 [facility] r[facility] 5 mg 9-21 tablet by [facility] o f tablet 00:00: mouth 3 (three) Medical times Branch daily. cyclobenzap 2018-0 Yes 5mg Take 1 [facility] 5 mg 9-21 tablet by [facility] o f tablet 00:00: mouth 3 (three) Medical times Branch daily. cyclobenzap 2018-0 Yes 5mg Take 1 [facility] 5 mg 9-21 tablet by [facility] o f tablet 00:00: mouth 3 (three) Medical times [facility] daily. cyclobenzap 2018-0 Yes 5mg Take 1 [facility] 5 mg 9-21 tablet by [facility] o f tablet 00:00: mouth 3 (three) Medical times [facility] daily. cyclobenzap 2018-0 Yes 5mg Take 1 [facility] 5 mg 9-21 tablet by [facility] o f tablet 00:00: mouth 3 (three) Medical times [facility] daily. cyclobenzap 2018-0 Yes 5mg Take 1 [facility] 5 mg 9-21 tablet by [facility] o f tablet 00:00: mouth 3 (three) Medical times [facility] daily. cyclobenzap 2018-0 Yes 5mg Take 1 [facility] 5 mg 9-21 tablet by [facility] o f tablet 00:00: mouth 3 (three) Medical times [facility] daily. cyclobenzap 2018-0 Yes 5mg Take 1 [facility] 5 mg 9-21 tablet by [facility] o f tablet 00:00: mouth 3 (three) Medical times [facility] daily. cyclobenzap 2018-0 Yes 5mg Take 1 [facility] r[facility] 5 mg 9-21 tablet by [facility] o f tablet 00:00: mouth 3 (three) Medical times [facility] daily. acetaminoph 2020- No 1{tbl} Take 1 [facility] en-codeine 9-20 01-28 tablet by [facility] of (TYLENOL-CO 00:00: 00:00 mouth [place] DE[facility] #3) 00 :00 every 6 Medical 300-30 mg (six) Branch tablet hours as needed for Pain (scale 4-6) (for cough). acetaminoph 2020- No 1{tbl} Take 1 [facility] en-codeine 9-21 -28 tablet by [facility] of (TYLENOL-CO 00:00: 00:00 mouth [place] DE[facility] #3) 00 :00 every 6 Medical 300-30 mg (six) Branch tablet hours as needed for Pain (scale 4-6) (for cough). aspirin 81 2018-0 Yes 81mg Take 1 [facility] mg chewable 9-04 tablet by [facility] tablet 00:00: mouth [place] 00 daily. Medical Branch aspirin 81 2018-0 Yes 81mg Take 1 [facility] mg chewable 9-04 tablet by [facility] of tablet 00:00: mouth [place] 00 daily. [facility] aspirin 81 2018-0 Yes 81mg Take 1 [facility] mg chewable 9-04 tablet by [facility] of tablet 00:00: mouth [place] 00 daily. [facility] aspirin 81 2018-0 Yes 81mg Take 1 [facility] mg chewable 9-04 tablet by [facility] of tablet 00:00: mouth [place] 00 daily. [facility] aspirin 81 2018-0 Yes 81mg Take 1 [facility] mg chewable 9-04 tablet by [facility] of tablet 00:00: mouth [place] 00 daily. [facility] aspirin 81 2018-0 Yes 81mg Take 1 [facility] mg chewable 9-04 tablet by [facility] of tablet 00:00: mouth [place] 00 daily. [facility] aspirin 81 2018-0 Yes 81mg Take 1 [facility] mg chewable 9-04 tablet by [facility] of tablet 00:00: mouth [place] 00 daily. [facility] aspirin 81 2018-0 Yes 81mg Take 1 [facility] mg chewable 9-04 tablet by [facility] of tablet 00:00: mouth [place] 00 daily. [facility] aspirin 81 2018-0 Yes 81mg Take 1 [facility] mg chewable 9-04 tablet by [facility] of tablet 00:00: mouth [place] 00 daily. [facility] aspirin 81 2018-0 Yes 81mg Take 1 [facility] mg chewable 9-04 tablet by [facility] of tablet 00:00: mouth [place] 00 daily. [facility] aspirin 81 2018-0 Yes 81mg Take 1 [facility] mg chewable 9-04 tablet by [facility] of tablet 00:00: mouth [place] 00 daily. [facility] aspirin 81 2018-0 Yes 81mg Take 1 [facility] mg chewable 9-04 tablet by [facility] of tablet 00:00: mouth [place] 00 daily. [facility] aspirin 81 2018-0 Yes 81mg Take 1 [facility] mg chewable 9-04 tablet by [facility] of tablet 00:00: mouth [place] 00 daily. [facility] aspirin 81 2018-0 Yes 81mg Take 1 [facility] mg chewable 9-04 tablet by [facility] of tablet 00:00: mouth [place] 00 daily. [facility] aspirin 81 2018-0 Yes 81mg Take 1 [facility] mg chewable 9-04 tablet by [facility] of tablet 00:00: mouth [place] 00 daily. [facility] aspirin 81 2018-0 Yes 81mg Take 1 [facility] mg chewable 9-04 tablet by [facility] of tablet 00:00: mouth [place] 00 daily. [facility] aspirin 81 2018-0 Yes 81mg Take 1 [facility] mg chewable 9-04 tablet by [facility] of tablet 00:00: mouth [place] 00 daily. [facility] aspirin 81 2018-0 Yes 81mg Take 1 [facility] mg chewable 9-04 tablet by [facility] of tablet 00:00: mouth [place] 00 daily. [facility] aspirin 81 2018-0 Yes 81mg Take 1 [facility] mg chewable 9-04 tablet by [facility] of tablet 00:00: mouth [place] 00 daily. [facility] aspirin 81 2018-0 Yes 81mg Take 1 [facility] mg chewable 9-04 tablet by [facility] of tablet 00:00: mouth [place] 00 daily. [facility] aspirin 81 2018-0 Yes 81mg Take 1 [facility] mg chewable 9-04 tablet by [facility] of tablet 00:00: mouth [place] 00 daily. [facility] aspirin 81 2018-0 Yes 81mg Take 1 [facility] mg chewable 9-04 tablet by [facility] of tablet 00:00: mouth [place] 00 daily. [facility] aspirin 81 2018-0 Yes 81mg Take 1 [facility] mg chewable 9-04 tablet by [facility] of tablet 00:00: mouth [place] 00 daily. [facility] aspirin 81 2018-0 2021- No 81mg Take 1 [facility] ers mg chewable 9-04 06-09 tablet by it y of tablet 00:00: 00:00 mouth [place] 00 :00 daily. [facility] aspirin 81 2018-0 2021- No 81mg Take 1 [facility] ers mg chewable 9-04 06-09 tablet by it y of tablet 00:00: 00:00 mouth [place] 00 :00 daily. [facility] atorvastati 2018-0 Yes 20mg Take 1 [facility] ers n 20 mg 9-03 tablet by [facility] of tablet 00:00: mouth at [place] 00 bedtime. [facility] SERTraline 2017-0 Yes [id number] 50mg Take 1 [facility] 50 mg 9-03 tablet by [facility] of tablet 00:00: mouth [place] 00 daily. [facility] atorvastati 2017-0 Yes 20mg Take 1 [facility] n 20 mg 9-03 tablet by [facility] of tablet 00:00: mouth at [place] 00 bedtime. [facility] SERTraline 2017-0 Yes [id number] 50mg Take 1 [facility] 50 mg 9-03 tablet by [facility] of tablet 00:00: mouth [place] 00 daily. [facility] atorvastati 0 Yes 20mg Take 1 [facility] n 20 mg 9-03 tablet by [facility] of tablet 00:00: mouth at [place] 00 bedtime. [facility] SERTraline 2017-0 Yes [id number] 50mg Take 1 [facility] 50 mg 9-03 tablet by [facility] of tablet 00:00: mouth [place] 00 daily. [facility] atorvastati 0 Yes 20mg Take 1 [facility] n 20 mg 9-03 tablet by [facility] of tablet 00:00: mouth at [place] 00 bedtime. [facility] SERTraline 0 Yes [id number] 50mg Take 1 [facility] 50 mg 9-03 tablet by [facility] of tablet 00:00: mouth [place] 00 daily. [facility] atorvastati 0 Yes 20mg Take 1 [facility] n 20 mg 9-03 tablet by [facility] of tablet 00:00: mouth at [place] 00 bedtime. [facility] SERTraline 0 Yes [id number] 50mg Take 1 [facility] 50 mg 9-03 tablet by [facility] of tablet 00:00: mouth [place] 00 daily. [facility] atorvastati 2017-0 Yes 20mg Take 1 [facility] n 20 mg 9-03 tablet by [facility] of tablet 00:00: mouth at [place] 00 bedtime. [facility] SERTraline 0 Yes [id number] 50mg Take 1 [facility] 50 mg 9-03 tablet by [facility] tablet 00:00: mouth [place] 00 daily. [facility] atorvastati 0 Yes 20mg Take 1 [facility] 20 mg 9-03 tablet by [facility] tablet 00:00: mouth at [place] 00 bedtime. [facility] SERTraline 2017-0 Yes [id number] 50mg Take 1 [facility] 50 mg 9-03 tablet by [facility] of tablet 00:00: mouth [place] 00 daily. [facility] atorvastati 2018-0 Yes 20mg Take 1 [facility] 20 mg 9-03 tablet by [facility] tablet 00:00: mouth at [place] 00 bedtime. [facility] SERTraline 2018-0 Yes [id number] 50mg Take 1 [facility] 50 mg 9-03 tablet by [facility] tablet 00:00: mouth [place] 00 daily. [facility] atorvastati 2017-0 Yes 20mg Take 1 [facility] 20 mg 9-03 tablet by [facility] tablet 00:00: mouth at [place] 00 bedtime. [facility] SERTraline 2017-0 Yes [id number] 50mg Take 1 [facility] 50 mg 9-03 tablet by [facility] of tablet 00:00: mouth [place] 00 daily. [facility] atorvastati 2017-0 Yes 20mg Take 1 [facility] 20 mg 9-03 tablet by [facility] tablet 00:00: mouth at [place] 00 bedtime. [facility] SERTraline 2017-0 Yes [id number] 50mg Take 1 [facility] 50 mg 9-03 tablet by [facility] of tablet 00:00: mouth [place] 00 daily. [facility] atorvastati 2017-0 Yes 20mg Take 1 [facility] 20 mg 9-03 tablet by [facility] tablet 00:00: mouth at [place] 00 bedtime. [facility] SERTraline 2017-0 Yes [id number] 50mg Take 1 [facility] 50 mg 9-03 tablet by [facility] of tablet 00:00: mouth [place] 00 daily. [facility] atorvastati 2017-0 Yes 20mg Take 1 [facility] 20 mg 9-03 tablet by [facility] tablet 00:00: mouth at [place] 00 bedtime. [facility] SERTraline 2018-0 Yes [id number] 50mg Take 1 [facility] 50 mg 9-03 tablet by [facility] of tablet 00:00: mouth [place] 00 daily. [facility] atorvastati 2018-0 Yes 20mg Take 1 [facility] 20 mg 9-03 tablet by [facility] of tablet 00:00: mouth at [place] 00 bedtime. [facility] SERTraline 2018-0 Yes [id number] 50mg Take 1 [facility] 50 mg 9-03 tablet by [facility] of tablet 00:00: mouth [place] 00 daily. [facility] atorvastati 2018-0 Yes 20mg Take 1 [facility] 20 mg 9-03 tablet by [facility] of tablet 00:00: mouth at [place] 00 bedtime. [facility] SERTraline 2018-0 Yes [id number] 50mg Take 1 [facility] 50 mg 9-03 tablet by [facility] of tablet 00:00: mouth [place] 00 daily. [facility] atorvastati 2018-0 Yes 20mg Take 1 [facility] 20 mg 9-03 tablet by [facility] tablet 00:00: mouth at [place] 00 bedtime. [facility] SERTraline 2017-0 Yes [id number] 50mg Take 1 [facility] 50 mg 9-03 tablet by [facility] of tablet 00:00: mouth [place] 00 daily. [facility] atorvastati 2017-0 Yes 20mg Take 1 [facility] 20 mg 9-03 tablet by [facility] of tablet 00:00: mouth at [place] bedtime. [facility] SERTraline 2017-0 Yes [id number] 50mg Take 1 [facility] 50 mg 9-03 tablet by [facility] of tablet 00:00: mouth [place] 00 daily. [facility] atorvastati 2017-0 Yes 20mg Take 1 [facility] 20 mg 9-03 tablet by [facility] of tablet 00:00: mouth at [place] bedtime. [facility] SERTraline 2017-0 Yes [id number] 50mg Take 1 [facility] 50 mg 9-03 tablet by [facility] of tablet 00:00: mouth [place] 00 daily. [facility] atorvastati 2017-0 Yes 20mg Take 1 [facility] 20 mg 9-03 tablet by [facility] of tablet 00:00: mouth at [place] bedtime. [facility] SERTraline 2017-0 Yes [id number] 50mg Take 1 [facility] 50 mg 9-03 tablet by [facility] of tablet 00:00: mouth [place] 00 daily. [facility] atorvastati 2018-0 Yes 20mg Take 1 [facility] 20 mg 9-03 tablet by [facility] of tablet 00:00: mouth at [place] bedtime. [facility] SERTraline 2018-0 Yes [id number] 50mg Take 1 [facility] 50 mg 9-03 tablet by [facility] of tablet 00:00: mouth [place] 00 daily. [facility] atorvastati 2017-0 Yes 20mg Take 1 [facility] 20 mg 9-03 tablet by [facility] of tablet 00:00: mouth at [place] 00 bedtime. [facility] SERTraline 2017-0 Yes [id number] 50mg Take 1 [facility] 50 mg 9-03 tablet by [facility] of tablet 00:00: mouth [place] 00 daily. [facility] atorvastati 2018-0 Yes 20mg Take 1 [facility] 20 mg 9-03 tablet by [facility] of tablet 00:00: mouth at [place] 00 bedtime. [facility] SERTraline 2018-0 Yes [id number] 50mg Take 1 [facility] 50 mg 9-03 tablet by [facility] of tablet 00:00: mouth [place] 00 daily. [facility] atorvastati 2017-0 Yes 20mg Take 1 [facility] 20 mg 9-03 tablet by [facility] of tablet 00:00: mouth at [place] 00 bedtime. [facility] SERTraline 2017-0 Yes [id number] 50mg Take 1 [facility] 50 mg 9-03 tablet by [facility] of tablet 00:00: mouth [place] 00 daily. [facility] atorvastati 2017-0 Yes 20mg Take 1 [facility] 20 mg 9-03 tablet by [facility] of tablet 00:00: mouth at [place] 00 bedtime. [facility] SERTraline 2017-0 Yes [id number] 50mg Take 1 [facility] 50 mg 9-03 tablet by [facility] of tablet 00:00: mouth [place] 00 daily. [facility] atorvastati 0 Yes 20mg Take 1 [facility] 20 mg 9-03 tablet by [facility] of tablet 00:00: mouth at [place] 00 bedtime. [facility] SERTraline 2017-0 Yes [id number] 50mg Take 1 [facility] 50 mg 9-03 tablet by [facility] of tablet 00:00: mouth [place] 00 daily. [facility] atorvastati 2017-0 Yes 20mg Take 1 [facility] 20 mg 9-03 tablet by [facility] of tablet 00:00: mouth at [place] 00 bedtime. [facility] SERTraline 2017-0 Yes [id number] 50mg Take 1 [facility] 50 mg 9-03 tablet by [facility] of tablet 00:00: mouth [place] 00 daily. [facility] atorvastati 2018-0 Yes 20mg Take 1 [facility] 20 mg 9-03 tablet by [facility] of tablet 00:00: mouth at [place] 00 bedtime. [facility] SERTraline 2017-0 Yes [id number] 50mg Take 1 [facility] 50 mg 9-03 tablet by [facility] of tablet 00:00: mouth [place] 00 daily. [facility] atorvastati 2017-0 Yes 20mg Take 1 [facility] 20 mg 9-03 tablet by [facility] of tablet 00:00: mouth at [place] 00 bedtime. [facility] SERTraline 2017-0 Yes [id number] 50mg Take 1 [facility] 50 mg 9-03 tablet by [facility] of tablet 00:00: mouth [place] 00 daily. [facility] atorvastati 2017-0 Yes 20mg Take 1 [facility] 20 mg 9-03 tablet by [facility] of tablet 00:00: mouth at [place] 00 bedtime. [facility] SERTraline 2017-0 Yes [id number] 50mg Take 1 [facility] 50 mg 9-03 tablet by [facility] of tablet 00:00: mouth [place] 00 daily. [facility] atorvastati 0 Yes 20mg Take 1 [facility] 20 mg 9-03 tablet by [facility] of tablet 00:00: mouth at [place] bedtime. [facility] SERTraline 0 Yes [id number] 50mg Take 1 [facility] 50 mg 9-03 tablet by [facility] of tablet 00:00: mouth 00 daily. [facility] atorvastati 2017-0 Yes 20mg Take 1 [facility] 20 mg 9-03 tablet by [facility] of tablet 00:00: mouth at [place] bedtime. [facility] SERTraline 0 Yes [id number] 50mg Take 1 [facility] 50 mg 9-03 tablet by [facility] of tablet 00:00: mouth [place] 00 daily. [facility] atorvastati 0 Yes 20mg Take 1 [facility] 20 mg 9-03 tablet by [facility] of tablet 00:00: mouth at [place] bedtime. [facility] SERTraline 2017-0 Yes [id number] 50mg Take 1 [facility] 50 mg 9-03 tablet by [facility] of tablet 00:00: mouth [place] 00 daily. [facility] atorvastati 2017-0 Yes 20mg Take 1 [facility] 20 mg 9-03 tablet by [facility] of tablet 00:00: mouth at [place] bedtime. [facility] SERTraline 2017-0 Yes [id number] 50mg Take 1 [facility] 50 mg 9-03 tablet by [facility] of tablet 00:00: mouth [place] 00 daily. [facility] atorvastati 2017-0 Yes 20mg Take 1 [facility] 20 mg 9-03 tablet by [facility] of tablet 00:00: mouth at [place] 00 bedtime. [facility] SERTraline 2018-0 Yes [id number] 50mg Take 1 [facility] 50 mg 9-03 tablet by [facility] of tablet 00:00: mouth [place] 00 daily. [facility] atorvastati 0 Yes 20mg Take 1 [facility] 20 mg 9-03 tablet by [facility] of tablet 00:00: mouth at [place] 00 bedtime. [facility] SERTraline 0 Yes [id number] 50mg Take 1 [facility] 50 mg 9-03 tablet by [facility] of tablet 00:00: mouth [place] 00 daily. [facility] atorvastati 0 Yes 20mg Take 1 [facility] 20 mg 9-03 tablet by [facility] of tablet 00:00: mouth at [place] 00 bedtime. [facility] SERTraline 0 Yes [id number] 50mg Take 1 [facility] 50 mg 9-03 tablet by [facility] of tablet 00:00: mouth [place] 00 daily. [facility] atorvastati 0 Yes 20mg Take 1 [facility] 20 mg 9-03 tablet by [facility] of tablet 00:00: mouth at [place] 00 bedtime. [facility] SERTraline 0 Yes [id number] 50mg Take 1 [facility] 50 mg 9-03 tablet by [facility] of tablet 00:00: mouth [place] 00 daily. [facility] atorvastati 0 Yes 20mg Take 1 [facility] 20 mg 9-03 tablet by [facility] of tablet 00:00: mouth at [place] 00 bedtime. [facility] SERTraline 0 Yes [id number] 50mg Take 1 [facility] 50 mg 9-03 tablet by [facility] of tablet 00:00: mouth [place] 00 daily. [facility] atorvastati 0 Yes 20mg Take 1 [facility] 20 mg 9-03 tablet by [facility] of tablet 00:00: mouth at [place] 00 bedtime. [facility] SERTraline 0 Yes [id number] 50mg Take 1 [facility] 50 mg 9-03 tablet by [facility] of tablet 00:00: mouth [place] 00 daily. [facility] atorvastati 0 Yes 20mg Take 1 [facility] 20 mg 9-03 tablet by [facility] of tablet 00:00: mouth at [place] 00 bedtime. [facility] SERTraline 2017-0 Yes [id number] 50mg Take 1 [facility] 50 mg 9-03 tablet by [facility] of tablet 00:00: mouth [place] 00 daily. [facility] acetaminoph 2018-0 Yes 1{tbl} Take 1 [facility] en-codeine 4-23 tablet by ity of (TYLENOL-CO 00:00: mouth [place] DEINE #3) 00 every 6 Medical 300-30 mg (six) Branch tablet hours as needed for Pain (scale 4-6). acetaminoph 2017-0 Yes 1{tbl} Take 1 [facility] en-codeine 4-23 tablet by [facility]y of (TYLENOL-CO 00:00: mouth [place] DEINE #3) 00 every 6 Medical 300-30 mg (six) Branch tablet hours as needed for Pain (scale 4-6). acetaminoph 2017-0 Yes 1{tbl} Take 1 [facility] en-codeine 4-23 tablet by ity of (TYLENOL-CO 00:00: mouth [place] DEINE #3) 00 every 6 Medical 300-30 mg (six) Branch tablet hours as needed for Pain (scale 4-6). acetaminoph 0 Yes 1{tbl} Take 1 [facility] en-codeine 4-23 tablet by [facility] of (TYLENOL-CO 00:00: mouth [place] DEINE #3) 00 every 6 Medical 300-30 mg (six) Branch tablet hours as needed for Pain (scale 4-6). acetaminoph 2017-0 Yes 1{tbl} Take 1 [facility] en-codeine 4-23 tablet by [facility]y of (TYLENOL-CO 00:00: mouth [place] DEINE #3) 00 every 6 Medical 300-30 mg (six) Branch tablet hours as needed for Pain (scale 4-6). acetaminoph 2017-0 Yes 1{tbl} Take 1 [facility] en-codeine 4-23 tablet by ity of (TYLENOL-CO 00:00: mouth [place] DEINE #3) 00 every 6 Medical 300-30 mg (six) Branch tablet hours as needed for Pain (scale 4-6). acetaminoph 2017-0 Yes 1{tbl} Take 1 [facility] en-codeine 4-23 tablet by ity of (TYLENOL-CO 00:00: mouth [place] DEINE #3) 00 every 6 Medical 300-30 mg (six) Branch tablet hours as needed for Pain (scale 4-6). acetaminoph 2018-0 Yes 1{tbl} Take 1 [facility] en-codeine 4-23 tablet by ity of (TYLENOL-CO 00:00: mouth [place] DEINE #3) 00 every 6 Medical 300-30 mg (six) Branch tablet hours as needed for Pain (scale 4-6). acetaminoph 2017-0 Yes 1{tbl} Take 1 [facility] en-codeine 4-23 tablet by ity of (TYLENOL-CO 00:00: mouth [place] DEINE #3) 00 every 6 Medical 300-30 mg (six) Branch tablet hours as needed for Pain (scale 4-6). acetaminoph 2017-0 Yes 1{tbl} Take 1 [facility] en-codeine 4-23 tablet by ity of (TYLENOL-CO 00:00: mouth [place] DEINE #3) 00 every 6 Medical 300-30 mg (six) Branch tablet hours as needed for Pain (scale 4-6). acetaminoph Yes 1{tbl} Take 1 [facility] en-codeine 4-23 tablet by ity of (TYLENOL-CO 00:00: mouth [place] DEINE #3) 00 every 6 Medical 300-30 mg (six) Branch tablet hours as needed for Pain (scale 4-6). acetaminoph 0 Yes 1{tbl} Take 1 [facility] en-codeine 4-23 tablet by ity of (TYLENOL-CO 00:00: mouth [place] DEINE #3) 00 every 6 Medical 300-30 mg (six) Branch tablet hours as needed for Pain (scale 4-6). acetaminoph 2017-0 Yes 1{tbl} Take 1 [facility] en-codeine 4-23 tablet by ity of (TYLENOL-CO 00:00: mouth [place] DEINE #3) 00 every 6 Medical 300-30 mg (six) Branch tablet hours as needed for Pain (scale 4-6). acetaminoph 2017-0 Yes 1{tbl} Take 1 [facility] en-codeine 4-23 tablet by ity of (TYLENOL-CO 00:00: mouth [place] DEINE #3) 00 every 6 Medical 300-30 mg (six) Branch tablet hours as needed for Pain (scale 4-6). acetaminoph 2017-0 Yes 1{tbl} Take 1 [facility] en-codeine 4-23 tablet by ity of (TYLENOL-CO 00:00: mouth [place] DEINE #3) 00 every 6 Medical 300-30 mg (six) Branch tablet hours as needed for Pain (scale 4-6). acetaminoph 2018-0 Yes 1{tbl} Take 1 [facility] en-codeine 4-23 tablet by ity of (TYLENOL-CO 00:00: mouth [place] DEINE #3) 00 every 6 Medical 300-30 mg (six) Branch tablet hours as needed for Pain (scale 4-6). acetaminoph 2017-0 Yes 1{tbl} Take 1 [facility] en-codeine 4-23 tablet by ity of (TYLENOL-CO 00:00: mouth [place] DEINE #3) 00 every 6 Medical 300-30 mg (six) Branch tablet hours as needed for Pain (scale 4-6). acetaminoph 2017-0 Yes 1{tbl} Take 1 [facility] en-codeine 4-23 tablet by ity of (TYLENOL-CO 00:00: mouth [place] DEINE #3) 00 every 6 Medical 300-30 mg (six) Branch tablet hours as needed for Pain (scale 4-6). acetaminoph 2017-0 Yes 1{tbl} Take 1 [facility] en-codeine 4-23 tablet by ity of (TYLENOL-CO 00:00: mouth [place] DEINE #3) 00 every 6 Medical 300-30 mg (six) Branch tablet hours as needed for Pain (scale 4-6). acetaminoph 2017-0 Yes 1{tbl} Take 1 [facility] en-codeine 4-23 tablet by ity of (TYLENOL-CO 00:00: mouth [place] DEINE #3) 00 every 6 Medical 300-30 mg (six) Branch tablet hours as needed for Pain (scale 4-6). acetaminoph 2018-0 Yes 1{tbl} Take 1 [facility] en-codeine 4-23 tablet by ity of (TYLENOL-CO 00:00: mouth [place] DEINE #3) 00 every 6 Medical 300-30 mg (six) Branch tablet hours as needed for Pain (scale 4-6). acetaminoph 2017-0 Yes 1{tbl} Take 1 [facility] en-codeine 4-23 tablet by ity of (TYLENOL-CO 00:00: mouth [place] DEINE #3) 00 every 6 Medical 300-30 mg (six) Branch tablet hours as needed for Pain (scale 4-6). acetaminoph Yes 1{tbl} Take 1 [facility] en-codeine 4-23 tablet by ity of (TYLENOL-CO 00:00: mouth [place] DEINE #3) 00 every 6 Medical 300-30 mg (six) Branch tablet hours as needed for Pain (scale 4-6). acetaminoph 2020- No 1{tbl} Take 1 [facility] en-codeine 4-23 06-09 tablet by ity of (TYLENOL-CO 00:00: 00:00 mouth [place] DEINE #3) 00 :00 every 6 Medical 300-30 mg (six) Branch tablet hours as needed for Pain (scale 4-6). acetaminoph 2020- No 1{tbl} Take 1 [facility] en-codeine 4-23 06-09 tablet by ity of (TYLENOL-CO 00:00: 00:00 mouth [place] DEINE #3) 00 :00 every 6 Medical 300-30 mg (six) Branch tablet hours as needed for Pain (scale 4-6). SIMETHICONE Yes 1 Tab Oral [facility] 80 MG ORAL 6-04 PC+HSPRN ity o f CHEW 00:00: [place] 00 Medical Branch PHENYTOIN Yes 1 Cap Oral [facility] SODIUM 6-04 BID ity of EXTENDED 00:00: [place] 100 MG ORAL 00 Medical CAP Branch SIMETHICONE Yes 1 Tab Oral [facility] 80 MG ORAL 6-04 PC+HSPRN ity o f CHEW 00:00: [place] 00 Medical Branch PHENYTOIN Yes 1 Cap Oral [facility] SODIUM 6-04 BID ity of EXTENDED 00:00: [place] 100 MG ORAL 00 Medical CAP Branch SIMETHICONE Yes 1 Tab Oral [facility] 80 MG ORAL 6-04 PC+HSPRN ity o f CHEW 00:00: [place] 00 Medical Branch PHENYTOIN Yes 1 Cap Oral [facility] SODIUM 6-04 BID ity of EXTENDED 00:00: [place] 100 MG ORAL 00 Medical CAP Branch Yes Take one [facility] rs VIT27&CALCI 6-04 tablet by ity of UM-IRON-FA 00:00: mouth [place] 60 MG 00 daily Medical (IRON)-1 MG Branch ORAL TAB DOCUSATE Yes Take one [facility] rs CALCIUM 240 6-04 capsule by it y of MG ORAL CAP 00:00: mouth [place] 00 daily as Medical needed for Branch constipati on FERROUS Yes Take one [facility] s SULFATE 325 6-04 tablet by ity of MG (65 MG 00:00: mouth [place] IRON) ORAL 00 twice Medical TAB daily Branch Yes 1 Tab Oral Uni vers VIT27&CALCI 6-04 DAILY ity of UM-IRON-FA 00:00: [place] 60 MG 00 Medical (IRON)-1 MG Branch ORAL TAB SIMETHICONE Yes 1 Tab Oral [facility] 80 MG ORAL 6-04 PC+HSPRN ity o f CHEW 00:00: [place] 00 Medical Branch PHENYTOIN Yes 1 Cap Oral [facility] SODIUM 6-04 BID ity of EXTENDED 00:00: [place] 100 MG ORAL 00 Medical CAP Branch Yes Take one [facility] rs VIT27&CALCI 6-04 tablet by ity of UM-IRON-FA 00:00: mouth [place] 60 MG 00 daily Medical (IRON)-1 MG Branch ORAL TAB DOCUSATE Yes Take one [facility] rs CALCIUM 240 6-04 capsule by it y of MG ORAL CAP 00:00: mouth [place] 00 daily as Medical needed for Branch constipati on FERROUS Yes Take one [facility] s SULFATE 325 6-04 tablet by ity of MG (65 MG 00:00: mouth [place] IRON) ORAL 00 twice Medical TAB daily Branch Yes 1 Tab Oral Uni vers VIT27&CALCI 6-04 DAILY ity of UM-IRON-FA 00:00: [place] 60 MG 00 Medical (IRON)-1 MG Branch ORAL TAB SIMETHICONE Yes 1 Tab Oral [facility] 80 MG ORAL 6-04 PC+HSPRN ity o f CHEW 00:00: [place] 00 Medical Branch PHENYTOIN Yes 1 Cap Oral [facility] SODIUM 6-04 BID ity of EXTENDED 00:00: [place] 100 MG ORAL 00 Medical CAP Branch Yes Take one [facility] rs VIT27&CALCI 6-04 tablet by ity of UM-IRON-FA 00:00: mouth [place] 60 MG 00 daily Medical (IRON)-1 MG Branch ORAL TAB DOCUSATE Yes Take one [facility] rs CALCIUM 240 6-04 capsule by it y of MG ORAL CAP 00:00: mouth [place] 00 daily as Medical needed for Branch constipati on FERROUS Yes Take one [facility] s SULFATE 325 6-04 tablet by ity of MG (65 MG 00:00: mouth [place] IRON) ORAL 00 twice Medical TAB daily Branch Yes 1 Tab Oral [facility] vers VIT27&CALCI 6-04 DAILY ity of UM-IRON-FA 00:00: [place] 60 MG 00 Medical (IRON)-1 MG Branch ORAL TAB SIMETHICONE Yes 1 Tab Oral [facility] 80 MG ORAL 6-04 PC+HSPRN ity o f CHEW 00:00: [place] 00 Medical Branch PHENYTOIN Yes 1 Cap Oral [facility] SODIUM 6-04 BID ity of EXTENDED 00:00: [place] 100 MG ORAL 00 Medical CAP Branch Yes Take one [facility] rs VIT27&CALCI 6-04 tablet by ity of UM-IRON-FA 00:00: mouth [place] 60 MG 00 daily Medical (IRON)-1 MG Branch ORAL TAB DOCUSATE Yes Take one [facility] rs CALCIUM 240 6-04 capsule by it y of MG ORAL CAP 00:00: mouth [place] 00 daily as Medical needed for Branch constipati on FERROUS Yes Take one [facility] s SULFATE 325 6-04 tablet by ity of MG (65 MG 00:00: mouth [place] IRON) ORAL 00 twice Medical TAB daily Branch Yes 1 Tab Oral [facility] vers VIT27&CALCI 6-04 DAILY ity of UM-IRON-FA 00:00: [place] 60 MG 00 Medical (IRON)-1 MG Branch ORAL TAB SIMETHICONE Yes 1 Tab Oral [facility] 80 MG ORAL 6-04 PC+HSPRN ity o f CHEW 00:00: [place] 00 Medical Branch PHENYTOIN Yes 1 Cap Oral [facility] SODIUM 6-04 BID ity of EXTENDED 00:00: [place] 100 MG ORAL 00 Medical CAP Branch Yes Take one [facility] rs VIT27&CALCI 6-04 tablet by ity of UM-IRON-FA 00:00: mouth [place] 60 MG 00 daily Medical (IRON)-1 MG Branch ORAL TAB DOCUSATE Yes Take one [facility] rs CALCIUM 240 6-04 capsule by it y of MG ORAL CAP 00:00: mouth [place] 00 daily as Medical needed for Branch constipati on FERROUS Yes Take one [facility] s SULFATE 325 6-04 tablet by ity of MG (65 MG 00:00: mouth [place] IRON) ORAL 00 twice Medical TAB daily Branch Yes 1 Tab Oral [facility] vers VIT27&CALCI 6-04 DAILY ity of UM-IRON-FA 00:00: [place] 60 MG 00 Medical (IRON)-1 MG Branch ORAL TAB SIMETHICONE Yes 1 Tab Oral [facility] 80 MG ORAL 6-04 PC+HSPRN ity o f CHEW 00:00: [place] 00 Medical Branch PHENYTOIN Yes 1 Cap Oral [facility] SODIUM 6-04 BID ity of EXTENDED 00:00: [place] 100 MG ORAL 00 Medical CAP Branch Yes Take one [facility] rs VIT27&CALCI 6-04 tablet by ity of UM-IRON-FA 00:00: mouth [place] 60 MG 00 daily Medical (IRON)-1 MG Branch ORAL TAB DOCUSATE Yes Take one [facility] rs CALCIUM 240 6-04 capsule by it y of MG ORAL CAP 00:00: mouth [place] 00 daily as Medical needed for Branch constipati on FERROUS Yes Take one [facility] s SULFATE 325 6-04 tablet by ity of MG (65 MG 00:00: mouth [place] IRON) ORAL 00 twice Medical TAB daily Branch Yes 1 Tab Oral [facility] vers VIT27&CALCI 6-04 DAILY ity of UM-IRON-FA 00:00: [place] 60 MG 00 Medical (IRON)-1 MG Branch ORAL TAB SIMETHICONE Yes 1 Tab Oral [facility] 80 MG ORAL 6-04 PC+HSPRN ity o f CHEW 00:00: [place] 00 Medical Branch PHENYTOIN Yes 1 Cap Oral [facility] SODIUM 6-04 BID ity of EXTENDED 00:00: [place] 100 MG ORAL 00 Medical CAP Branch Yes Take one [facility] rs VIT27&CALCI 6-04 tablet by ity of UM-IRON-FA 00:00: mouth [place] 60 MG 00 daily Medical (IRON)-1 MG Branch ORAL TAB DOCUSATE Yes Take one [facility] rs CALCIUM 240 6-04 capsule by it y of MG ORAL CAP 00:00: mouth [place] 00 daily as Medical needed for Branch constipati on FERROUS Yes Take one [facility] s SULFATE 325 6-04 tablet by ity of MG (65 MG 00:00: mouth [place] IRON) ORAL 00 twice Medical TAB daily Branch Yes 1 Tab Oral [facility] vers VIT27&CALCI 6-04 DAILY ity of UM-IRON-FA 00:00: [place] 60 MG 00 Medical (IRON)-1 MG Branch ORAL TAB SIMETHICONE Yes 1 Tab Oral [facility] 80 MG ORAL 6-04 PC+HSPRN ity o f CHEW 00:00: [place] 00 Medical Branch PHENYTOIN Yes 1 Cap Oral [facility] SODIUM 6-04 BID ity of EXTENDED 00:00: [place] 100 MG ORAL 00 Medical CAP Branch Yes Take one [facility] rs VIT27&CALCI 6-04 tablet by ity of UM-IRON-FA 00:00: mouth [place] 60 MG 00 daily Medical (IRON)-1 MG Branch ORAL TAB DOCUSATE Yes Take one [facility] rs CALCIUM 240 6-04 capsule by it y of MG ORAL CAP 00:00: mouth [place] 00 daily as Medical needed for Branch constipati on FERROUS Yes Take one [facility] s SULFATE 325 6-04 tablet by ity of MG (65 MG 00:00: mouth [place] IRON) ORAL 00 twice Medical TAB daily Branch Yes 1 Tab Oral [facility] vers VIT27&CALCI 6-04 DAILY ity of UM-IRON-FA 00:00: [place] 60 MG 00 Medical (IRON)-1 MG Branch ORAL TAB SIMETHICONE Yes 1 Tab Oral [facility] 80 MG ORAL 6-04 PC+HSPRN ity o f CHEW 00:00: [place] 00 Medical Branch PHENYTOIN Yes 1 Cap Oral [facility] SODIUM 6-04 BID ity of EXTENDED 00:00: [place] 100 MG ORAL 00 Medical CAP Branch Yes Take one [facility] rs VIT27&CALCI 6-04 tablet by ity of UM-IRON-FA 00:00: mouth [place] 60 MG 00 daily Medical (IRON)-1 MG Branch ORAL TAB DOCUSATE Yes Take one [facility] rs CALCIUM 240 6-04 capsule by it y of MG ORAL CAP 00:00: mouth [place] 00 daily as Medical needed for Branch constipati on FERROUS Yes Take one [facility] s SULFATE 325 6-04 tablet by ity of MG (65 MG 00:00: mouth [place] IRON) ORAL 00 twice Medical TAB daily Branch Yes 1 Tab Oral [facility] vers VIT27&CALCI 6-04 DAILY ity of UM-IRON-FA 00:00: [place] 60 MG 00 Medical (IRON)-1 MG Branch ORAL TAB SIMETHICONE Yes 1 Tab Oral [facility] 80 MG ORAL 6-04 PC+HSPRN ity o f CHEW 00:00: [place] 00 Medical Branch PHENYTOIN Yes 1 Cap Oral [facility] SODIUM 6-04 BID ity of EXTENDED 00:00: [place] 100 MG ORAL 00 Medical CAP Branch Yes Take one [facility] rs VIT27&CALCI 6-04 tablet by ity of UM-IRON-FA 00:00: mouth [place] 60 MG 00 daily Medical (IRON)-1 MG Branch ORAL TAB DOCUSATE Yes Take one [facility] rs CALCIUM 240 6-04 capsule by it y of MG ORAL CAP 00:00: mouth [place] 00 daily as Medical needed for Branch constipati on FERROUS Yes Take one [facility] s SULFATE 325 6-04 tablet by ity of MG (65 MG 00:00: mouth [place] IRON) ORAL 00 twice Medical TAB daily Branch Yes 1 Tab Oral [facility] VIT27&CALCI 6-04 DAILY ity of UM-IRON-FA 00:00: [place] 60 MG 00 Medical (IRON)-1 MG Branch ORAL TAB SIMETHICONE Yes 1 Tab Oral [facility] 80 MG ORAL 6-04 PC+HSPRN ity o f CHEW 00:00: [place] 00 Medical Branch PHENYTOIN Yes 1 Cap Oral [facility] SODIUM 6-04 BID ity of EXTENDED 00:00: [place] 100 MG ORAL 00 Medical CAP Branch Yes Take one [facility] rs VIT27&CALCI 6-04 tablet by ity of UM-IRON-FA 00:00: mouth [place] 60 MG 00 daily Medical (IRON)-1 MG Branch ORAL TAB DOCUSATE Yes Take one [facility] rs CALCIUM 240 6-04 capsule by it y of MG ORAL CAP 00:00: mouth [place] 00 daily as Medical needed for Branch constipati on FERROUS Yes Take one [facility] s SULFATE 325 6-04 tablet by ity of MG (65 MG 00:00: mouth [place] IRON) ORAL 00 twice Medical TAB daily Branch Yes 1 Tab Oral [facility] vers VIT27&CALCI 6-04 DAILY ity of UM-IRON-FA 00:00: [place] 60 MG 00 Medical (IRON)-1 MG Branch ORAL TAB SIMETHICONE Yes 1 Tab Oral [facility] 80 MG ORAL 6-04 PC+HSPRN ity o f CHEW 00:00: [place] 00 Medical Branch PHENYTOIN Yes 1 Cap Oral [facility] SODIUM 6-04 BID ity of EXTENDED 00:00: [place] 100 MG ORAL 00 Medical CAP Branch Yes Take one [facility] rs VIT27&CALCI 6-04 tablet by ity of UM-IRON-FA 00:00: mouth [place] 60 MG 00 daily Medical (IRON)-1 MG Branch ORAL TAB DOCUSATE Yes Take one [facility] rs CALCIUM 240 6-04 capsule by it y of MG ORAL CAP 00:00: mouth [place] 00 daily as Medical needed for Branch constipati on FERROUS Yes Take one [facility] s SULFATE 325 6-04 tablet by ity of MG (65 MG 00:00: mouth [place] IRON) ORAL 00 twice Medical TAB daily Branch Yes 1 Tab Oral [facility] vers VIT27&CALCI 6-04 DAILY ity of UM-IRON-FA 00:00: [place] 60 MG 00 Medical (IRON)-1 MG Branch ORAL TAB SIMETHICONE Yes 1 Tab Oral [facility] 80 MG ORAL 6-04 PC+HSPRN ity o f CHEW 00:00: [place] 00 Medical Branch PHENYTOIN Yes 1 Cap Oral [facility] SODIUM 6-04 BID ity of EXTENDED 00:00: [place] 100 MG ORAL 00 Medical CAP Branch Yes Take one [facility] rs VIT27&CALCI 6-04 tablet by ity of UM-IRON-FA 00:00: mouth [place] 60 MG 00 daily Medical (IRON)-1 MG Branch ORAL TAB DOCUSATE Yes Take one [facility] rs CALCIUM 240 6-04 capsule by it y of MG ORAL CAP 00:00: mouth [place] 00 daily as Medical needed for Branch constipati on FERROUS Yes Take one [facility] s SULFATE 325 6-04 tablet by ity of MG (65 MG 00:00: mouth [place] IRON) ORAL 00 twice Medical TAB daily Branch Yes 1 Tab Oral [facility] vers VIT27&CALCI 6-04 DAILY ity of [facility]-IRON-FA 00:00: [place] 60 MG 00 Medical (IRON)-1 MG Branch ORAL TAB SIMETHICONE Yes 1 Tab Oral Univers 80 MG ORAL 6-04 PC+HSPRN ity o f CHEW 00:00: [place] 00 Medical Branch PHENYTOIN Yes 1 Cap Oral Un dani SODIUM 6-04 BID ity of EXTENDED 00:00: [place] 100 MG ORAL 00 Medical CAP Branch Yes Take one Unive rs VIT27&CALCI 6-04 tablet by ity of UM-IRON-FA 00:00: mouth [place] 60 MG 00 daily Medical (IRON)-1 MG Branch ORAL TAB DOCUSATE Yes Take one Unive rs CALCIUM 240 6-04 capsule by it y of MG ORAL CAP 00:00: mouth [place] 00 daily as Medical needed for Branch constipati on FERROUS Yes Take one Univer s SULFATE 325 6-04 tablet by ity of MG (65 MG 00:00: mouth [place] IRON) ORAL 00 twice Medical TAB daily Branch Yes 1 Tab Oral Uni vers VIT27&CALCI 6-04 DAILY ity of UM-IRON-FA 00:00: [place] 60 MG 00 Medical (IRON)-1 MG Branch ORAL TAB SIMETHICONE Yes 1 Tab Oral Univers 80 MG ORAL 6-04 PC+HSPRN ity o f CHEW 00:00: [place] 00 Medical Branch PHENYTOIN Yes 1 Cap Oral Un dani SODIUM 6-04 BID ity of EXTENDED 00:00: [place] 100 MG ORAL 00 Medical CAP Branch Yes Take one Unive rs VIT27&CALCI 6-04 tablet by ity of UM-IRON-FA 00:00: mouth [place] 60 MG 00 daily Medical (IRON)-1 MG Branch ORAL TAB DOCUSATE Yes Take one Unive rs CALCIUM 240 6-04 capsule by it y of MG ORAL CAP 00:00: mouth [place] 00 daily as Medical needed for Branch constipati on FERROUS Yes Take one Univer s SULFATE 325 6-04 tablet by ity of MG (65 MG 00:00: mouth [place] IRON) ORAL 00 twice Medical TAB daily Branch Yes 1 Tab Oral Uni vers VIT27&CALCI 6-04 DAILY ity of UM-IRON-FA 00:00: [place] 60 MG 00 Medical (IRON)-1 MG Branch ORAL TAB SIMETHICONE Yes 1 Tab Oral Univers 80 MG ORAL 6-04 PC+HSPRN ity o f CHEW 00:00: [place] 00 Medical Branch PHENYTOIN Yes 1 Cap Oral Un dani SODIUM 6-04 BID ity of EXTENDED 00:00: [place] 100 MG ORAL 00 Medical CAP Branch Yes Take one Unive rs VIT27&CALCI 6-04 tablet by ity of UM-IRON-FA 00:00: mouth [place] 60 MG 00 daily Medical (IRON)-1 MG Branch ORAL TAB DOCUSATE Yes Take one Unive rs CALCIUM 240 6-04 capsule by it y of MG ORAL CAP 00:00: mouth [place] 00 daily as Medical needed for Branch constipati on FERROUS Yes Take one Univer s SULFATE 325 6-04 tablet by ity of MG (65 MG 00:00: mouth [place] IRON) ORAL 00 twice Medical TAB daily Branch Yes 1 Tab Oral Uni vers VIT27&CALCI 6-04 DAILY ity of UM-IRON-FA 00:00: [place] 60 MG 00 Medical (IRON)-1 MG Branch ORAL TAB SIMETHICONE Yes 1 Tab Oral Univers 80 MG ORAL 6-04 PC+HSPRN ity o f CHEW 00:00: [place] 00 Medical Branch PHENYTOIN Yes 1 Cap Oral Un dani SODIUM 6-04 BID ity of EXTENDED 00:00: [place] 100 MG ORAL 00 Medical CAP Branch Yes Take one Unive rs VIT27&CALCI 6-04 tablet by ity of UM-IRON-FA 00:00: mouth [place] 60 MG 00 daily Medical (IRON)-1 MG Branch ORAL TAB Yes 1 Tab Oral Uni vers VIT27&CALCI 6-04 DAILY ity of UM-IRON-FA 00:00: [place] 60 MG 00 Medical (IRON)-1 MG Branch ORAL TAB SIMETHICONE Yes 1 Tab Oral Univers 80 MG ORAL 6-04 PC+HSPRN ity o f CHEW 00:00: [place] 00 Medical Branch PHENYTOIN Yes 1 Cap Oral Un dani SODIUM 6-04 BID ity of EXTENDED 00:00: [place] 100 MG ORAL 00 Medical CAP Branch Yes Take one Unive rs VIT27&CALCI 6-04 tablet by ity of UM-IRON-FA 00:00: mouth [place] 60 MG 00 daily Medical (IRON)-1 MG Branch ORAL TAB Yes 1 Tab Oral Uni vers VIT27&CALCI 6-04 DAILY ity of [facility]-IRON-FA 00:00: [place] 60 MG 00 Medical (IRON)-1 MG Branch ORAL TAB SIMETHICONE Yes 1 Tab Oral Univers 80 MG ORAL 6-04 PC+HSPRN ity o f CHEW 00:00: [place] 00 Medical Branch PHENYTOIN Yes 1 Cap Oral Un dani SODIUM 6-04 BID ity of EXTENDED 00:00: [place] 100 MG ORAL 00 Medical CAP Branch Yes Take one Unive rs VIT27&CALCI 6-04 tablet by ity of UM-IRON-FA 00:00: mouth [place] 60 MG 00 daily Medical (IRON)-1 MG Branch ORAL TAB Yes 1 Tab Oral Uni vers VIT27&CALCI 6-04 DAILY ity of UM-IRON-FA 00:00: [place] 60 MG 00 Medical (IRON)-1 MG Branch ORAL TAB SIMETHICONE Yes 1 Tab Oral Univers 80 MG ORAL 6-04 PC+HSPRN ity o f CHEW 00:00: [place] 00 Medical Branch PHENYTOIN Yes 1 Cap Oral Un dani SODIUM 6-04 BID ity of EXTENDED 00:00: [place] 100 MG ORAL 00 Medical CAP Branch Yes Take one Unive rs VIT27&CALCI 6-04 tablet by ity of UM-IRON-FA 00:00: mouth [place] 60 MG 00 daily Medical (IRON)-1 MG Branch ORAL TAB Yes 1 Tab Oral Uni vers VIT27&CALCI 6-04 DAILY ity of UM-IRON-FA 00:00: [place] 60 MG 00 Medical (IRON)-1 MG Branch ORAL TAB SIMETHICONE Yes 1 Tab Oral Univers 80 MG ORAL 6-04 PC+HSPRN ity o f CHEW 00:00: [place] 00 [facility] Branch PHENYTOIN Yes 1 Cap Oral Un dani SODIUM 6-04 BID ity of EXTENDED 00:00: [place] 100 MG ORAL 00 Medical CAP Branch Yes Take one Unive rs VIT27&CALCI 6-04 tablet by ity of UM-IRON-FA 00:00: mouth [place] 60 MG 00 daily Medical (IRON)-1 MG Branch ORAL TAB Yes 1 Tab Oral Uni vers VIT27&CALCI 6-04 DAILY ity of UM-IRON-FA 00:00: [place] 60 MG 00 Medical (IRON)-1 MG Branch ORAL TAB SIMETHICONE Yes 1 Tab Oral Univers 80 MG ORAL 6-04 PC+HSPRN ity o f CHEW 00:00: [place] 00 Medical Branch PHENYTOIN Yes 1 Cap Oral Un dani SODIUM 6-04 BID ity of EXTENDED 00:00: [place] 100 MG ORAL 00 Medical CAP Branch Yes Take one Unive rs VIT27&CALCI 6-04 tablet by ity of UM-IRON-FA 00:00: mouth [place] 60 MG 00 daily Medical (IRON)-1 MG Branch ORAL TAB Yes 1 Tab Oral Uni vers VIT27&CALCI 6-04 DAILY ity of UM-IRON-FA 00:00: [place] 60 MG 00 Medical (IRON)-1 MG Branch ORAL TAB SIMETHICONE Yes 1 Tab Oral Univers 80 MG ORAL 6-04 PC+HSPRN ity o f CHEW 00:00: [place] [facility] PHENYTOIN Yes 1 Cap Oral Un dani SODIUM 6-04 BID ity of EXTENDED 00:00: [place] 100 MG ORAL 00 Medical CAP Branch Yes Take one Unive rs VIT27&CALCI 6-04 tablet by ity of UM-IRON-FA 00:00: mouth [place] 60 MG 00 daily Medical (IRON)-1 MG Branch ORAL TAB Yes 1 Tab Oral Uni vers VIT27&CALCI 6-04 DAILY ity of UM-IRON-FA 00:00: [place] 60 MG 00 Medical (IRON)-1 MG Branch ORAL TAB SIMETHICONE Yes 1 Tab Oral Univers 80 MG ORAL 6-04 PC+HSPRN ity o f CHEW 00:00: [place] 00 [facility] Branch PHENYTOIN Yes 1 Cap Oral Un dani SODIUM 6-04 BID ity of EXTENDED 00:00: [place] 100 MG ORAL 00 Medical CAP Branch Yes Take one Unive rs VIT27&CALCI 6-04 tablet by ity of UM-IRON-FA 00:00: mouth [place] 60 MG 00 daily Medical (IRON)-1 MG Branch ORAL TAB Yes 1 Tab Oral Uni vers VIT27&CALCI 6-04 DAILY ity of UM-IRON-FA 00:00: [place] 60 MG 00 Medical (IRON)-1 MG Branch ORAL TAB SIMETHICONE Yes 1 Tab Oral Univers 80 MG ORAL 6-04 PC+HSPRN ity o f CHEW 00:00: [place] 00 [facility] Branch PHENYTOIN Yes 1 Cap Oral Un dani SODIUM 6-04 BID ity of EXTENDED 00:00: [place] 100 MG ORAL 00 Medical CAP Branch Yes Take one Unive rs VIT27&CALCI 6-04 tablet by ity of UM-IRON-FA 00:00: mouth [place] 60 MG 00 daily Medical (IRON)-1 MG Branch ORAL TAB Yes 1 Tab Oral Uni vers VIT27&CALCI 6-04 DAILY ity of UM-IRON-FA 00:00: [place] 60 MG 00 Medical (IRON)-1 MG Branch ORAL TAB SIMETHICONE Yes 1 Tab Oral Univers 80 MG ORAL 6-04 PC+HSPRN ity o f CHEW 00:00: [place] [facility] PHENYTOIN Yes 1 Cap Oral Un dani SODIUM 6-04 BID ity of EXTENDED 00:00: [place] 100 MG ORAL 00 Medical CAP Branch Yes Take one Unive rs VIT27&CALCI 6-04 tablet by ity of UM-IRON-FA 00:00: mouth [place] 60 MG 00 daily Medical (IRON)-1 MG Branch ORAL TAB Yes 1 Tab Oral Uni vers VIT27&CALCI 6-04 DAILY ity of UM-IRON-FA 00:00: [place] 60 MG 00 Medical (IRON)-1 MG Branch ORAL TAB SIMETHICONE Yes 1 Tab Oral Univers 80 MG ORAL 6-04 PC+HSPRN ity o f CHEW 00:00: [place] 00 Medical Branch PHENYTOIN Yes 1 Cap Oral Un dani SODIUM 6-04 BID ity of EXTENDED 00:00: [place] 100 MG ORAL 00 Medical CAP Branch Yes Take one Unive rs VIT27&CALCI 6-04 tablet by ity of UM-IRON-FA 00:00: mouth [place] 60 MG 00 daily Medical (IRON)-1 MG Branch ORAL TAB Yes 1 Tab Oral Uni vers VIT27&CALCI 6-04 DAILY ity of UM-IRON-FA 00:00: [place] 60 MG 00 Medical (IRON)-1 MG Branch ORAL TAB SIMETHICONE Yes 1 Tab Oral Univers 80 MG ORAL 6-04 PC+HSPRN ity o f CHEW 00:00: [place] [facility] PHENYTOIN Yes 1 Cap Oral Un dani SODIUM 6-04 BID ity of EXTENDED 00:00: [place] 100 MG ORAL 00 Medical CAP Branch SIMETHICONE Yes 1 Tab Oral Univers 80 MG ORAL 6-04 PC+HSPRN ity o f CHEW 00:00: [place] [facility] PHENYTOIN Yes 1 Cap Oral Un dani SODIUM 6-04 BID ity of EXTENDED 00:00: [place] 100 MG ORAL 00 Medical CAP Branch SIMETHICONE Yes 1 Tab Oral Univers 80 MG ORAL 6-04 PC+HSPRN ity o f CHEW 00:00: [place] [facility] PHENYTOIN Yes 1 Cap Oral Un dani SODIUM 6-04 BID ity of EXTENDED 00:00: [place] 100 MG ORAL 00 Medical CAP Branch SIMETHICONE Yes 1 Tab Oral Univers 80 MG ORAL 6-04 PC+HSPRN ity o f CHEW 00:00: [place] [facility] PHENYTOIN Yes 1 Cap Oral Un dani SODIUM 6-04 BID ity of EXTENDED 00:00: [place] 100 MG ORAL 00 Medical CAP Branch SIMETHICONE Yes 1 Tab Oral Univers 80 MG ORAL 6-04 PC+HSPRN ity o f CHEW 00:00: [place] [facility] PHENYTOIN Yes 1 Cap Oral Un dani SODIUM 6-04 BID ity of EXTENDED 00:00: [place] 100 MG ORAL 00 Medical CAP Branch SIMETHICONE Yes 1 Tab Oral Univers 80 MG ORAL 6-04 PC+HSPRN ity o f CHEW 00:00: [place] [facility] PHENYTOIN Yes 1 Cap Oral Un dani SODIUM 6-04 BID ity of EXTENDED 00:00: [place] 100 MG ORAL 00 Medical CAP Branch SIMETHICONE Yes 1 Tab Oral Univers 80 MG ORAL 6-04 PC+HSPRN ity o f CHEW 00:00: [place] 00 Medical Branch PHENYTOIN Yes 1 Cap Oral Un dani SODIUM 6-04 BID ity of EXTENDED 00:00: [place] 100 MG ORAL 00 Medical CAP Branch SIMETHICONE Yes 1 Tab Oral Univers 80 MG ORAL 6-04 PC+HSPRN ity o f CHEW 00:00: [place] 00 Medical Branch PHENYTOIN Yes 1 Cap Oral Un dani SODIUM 6-04 BID ity of EXTENDED 00:00: [place] 100 MG ORAL 00 Medical CAP Branch SIMETHICONE Yes 1 Tab Oral Univers 80 MG ORAL 6-04 PC+HSPRN ity o f CHEW 00:00: [place] 00 Medical Branch PHENYTOIN Yes 1 Cap Oral Un dani SODIUM 6-04 BID ity of EXTENDED 00:00: [place] 100 MG ORAL 00 Medical CAP Branch SIMETHICONE Yes 1 Tab Oral Univers 80 MG ORAL 6-04 PC+HSPRN ity o f CHEW 00:00: [place] [facility] PHENYTOIN Yes 1 Cap Oral Un dani SODIUM 6-04 BID ity of EXTENDED 00:00: [place] 100 MG ORAL 00 Medical CAP Branch DOCUSATE 2020- No Take one Univ ers CALCIUM 240 6-04 04-28 capsule by i ty of MG ORAL CAP 00:00: 00:[place] 00 :00 daily as Medical needed for Branch constipati on FERROUS 2020- No Take one Unive rs SULFATE 325 6-04 04-28 tablet by it y of MG (65 MG 00:00: 00:00 mouth [place] IRON) ORAL 00 :00 twice Medical TAB daily Branch DOCUSATE 2020- No Take one Univ ers CALCIUM 240 6-04 04-28 capsule by i ty of MG ORAL CAP 00:00: 00:[place] 00 :00 daily as Medical needed for Branch constipati on FERROUS 2020- No Take one Unive rs SULFATE 325 6-04 04-28 tablet by it y of MG (65 MG 00:00: 00:00 mouth [place] IRON) ORAL 00 :00 twice Medical TAB daily Branch Immunizations Ordered Filled Immunization Date Status Comments [facility] e Immunization Name Name SARS-COV-2 COVID-19 2021-04-19 Completed Unive rsity of MODERNA VACCINE 00:00:00 [facility] ical Branch SARS-COV-2 COVID-19 2021-04-19 Completed Unive rsity of MODERNA VACCINE 00:00:00 [place] [facility] ical Branch SARS-COV-2 COVID-19 2021-04-19 Completed Unive rsity of MODERNA VACCINE 00:00:00 [facility] ical Branch SARS-COV-2 COVID-19 2021-04-19 Completed Unive rsity of MODERNA VACCINE 00:00:00 [place] [facility] ical Branch SARS-COV-2 COVID-19 2021-04-19 Completed Unive rsity of MODERNA VACCINE 00:00:00 [facility] Branch SARS-COV-2 COVID-19 2021-04-19 Completed Unive rsity of MODERNA VACCINE 00:00:00 [facility] Branch SARS-COV-2 COVID-19 2021-03-20 Completed Unive rsity of MODERNA VACCINE 00:00:00 [facility] Branch SARS-COV-2 COVID-19 2021-03-20 Completed Unive rsity of MODERNA VACCINE 00:00:00 [facility] Branch SARS-COV-2 COVID-19 2021-03-20 Completed Unive rsity of MODERNA VACCINE 00:00:00 [facility] Branch SARS-COV-2 COVID-19 2021-03-20 Completed Unive rsity of MODERNA VACCINE 00:00:00 [facility] Branch SARS-COV-2 COVID-19 2021-03-20 Completed Unive rsity of MODERNA VACCINE 00:00:00 [facility] Branch SARS-COV-2 COVID-19 2021-03-20 Completed Unive rsity of MODERNA VACCINE 00:00:00 [facility] Branch H1n1 Vaccine 2009-07-16 Completed University o f 00:00:00 [facility] H1n1 Vaccine 2009-07-16 Completed University o f 00:00:00 [facility] H1n1 Vaccine 2009-07-16 Completed University o f 00:00:00 [facility] H1n1 Vaccine 2009-07-16 Completed University o f 00:00:00 [facility] H1n1 Vaccine 2009-07-16 Completed University o f 00:00:00 [facility] H1n1 Vaccine 2009-07-16 Completed University o f 00:00:00 [facility] Vital Signs Vital Name Observation Time Observation Value Comments Source Systolic blood 2021-10-31 18:32:00 151 mm[Hg] Univer sity of pressure [place] [facility] Diastolic blood 2021-10-31 18:32:00 109 mm[Hg] Unive rsity of pressure [place] [facility] Heart rate 2021-10-31 18:32:00 92 /min Universi ty of [place] [facility] Body temperature 2021-10-31 18:32:00 36.89 Cindi Univ ersity of [place] [facility] Respiratory rate 2021-10-31 18:32:00 16 /min Univ ersity of [place] [facility] Body height 2021-10-31 18:32:00 162.6 cm Univers[facility] [place] [facility] Body weight 2021-10-31 18:32:00 99.791 kg [facility] [place] [facility] BMI 2021-10-31 18:32:00 37.76 kg/m2 [facility] [place] [facility] [place] Oxygen saturation in 2021-10-31 18:32:00 100 /min University of Arterial blood by [place] [employer] dejah Pulse oximetry Branch Systolic blood 2021-06-19 00:30:00 135 mm[Hg] Univer sity of pressure [place] [facility] Diastolic blood 2021-06-19 00:30:00 95 mm[Hg] Unive rsity of pressure [place] [facility] Heart rate 2021-06-19 00:30:00 73 /min Universi ty of [place] [facility] Respiratory rate 2021-06-19 00:30:00 16 /min Univ ersity of [facility] [place] [facility] Oxygen saturation in 2021-06-19 00:30:00 100 /min University of Arterial blood by [place] [employer] dejah Pulse oximetry Branch Body temperature 2021-06-19 00:00:00 37.17 Cindi Univ ersity of [place] [facility] Body height 2021-06-18 19:35:00 162.6 cm Universi ty [facility] [place] [facility] Body weight 2021-06-18 19:35:00 106.142 kg [facility] [place] [facility] BMI 2021-06-18 19:35:00 40.17 kg/m2 [facility] [place] [facility] Systolic blood 2021-04-05 13:45:00 123 mm[Hg] Univer sity of pressure [place] [facility] Diastolic blood 2021-04-05 13:45:00 86 mm[Hg] Unive rsity of pressure [place] [facility] Heart rate 2021-04-05 13:45:00 78 /min [facility] [place] [facility] Body temperature 2021-04-05 13:45:00 36.72 Cindi Univ ersity of [place] [facility] Respiratory rate 2021-04-05 13:45:00 18 /min Univ ersity of [place] [facility] Body height 2021-04-05 13:45:00 162.6 cm [facility] [place] [facility] Body weight 2021-04-05 13:45:00 106.142 kg [facility] [place] [facility] BMI 2021-04-05 13:45:00 40.17 kg/m2 [facility] ty [facility] [place] [facility] Systolic blood 2021-03-29 14:19:00 134 mm[Hg] Univer sity of pressure [place] [facility] Diastolic blood 2021-03-29 14:19:00 89 mm[Hg] Unive rsity of pressure [place] [facility] Heart rate 2021-03-29 14:19:00 88 /min [facility] [place] [facility] Body temperature 2021-03-29 14:19:00 36.89 Cindi Univ ersity of [place] [facility] Respiratory rate 2021-03-29 14:19:00 18 /min Univ ersity of [place] [facility] Body height 2021-03-29 14:19:00 162.6 cm [facility] [place] [facility] Body weight 2021-03-29 14:19:00 108.047 kg [facility]i [facility] [place] [facility] BMI 2021-03-29 14:19:00 40.89 kg/m2 [facility] [place] [facility] Systolic blood 2021-03-10 19:16:00 134 mm[Hg] Univer sity of pressure [place] [facility] Diastolic blood 2021-03-10 19:16:00 85 mm[Hg] Unive rsity of pressure [place] [facility] Heart rate 2021-03-10 19:16:00 83 /min [facility]i ty [facility] [place] [facility] Body temperature 2021-03-10 19:16:00 36.94 Cindi Univ ersity of [place] [facility] Respiratory rate 2021-03-10 19:16:00 18 /min Univ ersity of [place] [facility] Body height 2021-03-10 19:16:00 162.6 cm [facility]i [facility] [place] [facility] Body weight 2021-03-10 19:16:00 107.14 kg Universi ty [facility] [place] [facility] BMI 2021-03-10 19:16:00 40.54 kg/m2 Universi ty of [facility] [place] [facility] Systolic blood 2021-02-24 19:05:00 139 mm[Hg] Univer sity of pressure [facility] [place] [facility] Diastolic blood 2021-02-24 19:05:00 94 mm[Hg] Unive rsity of pressure [facility] [place] [facility] Heart rate 2021-02-24 19:05:00 81 /min Universi ty of [place] [facility] Body temperature 2021-02-24 19:04:00 36.78 Cindi Univ ersity of [facility] [place] [facility] Respiratory rate 2021-02-24 19:04:00 18 /min Univ ersity of [facility] Body height 2021-02-24 19:04:00 162.6 cm [facility] [place] [facility] [place] Body weight 2021-02-24 19:04:00 107.049 kg [facility] [place] [facility] BMI 2021-02-24 19:04:00 40.51 kg/m2 [facility] [place] [facility] Systolic blood 2021-02-22 10:00:00 138 mm[Hg] Univer sity of pressure [facility] [place] [facility] Diastolic blood 2021-02-22 10:00:00 100 mm[Hg] Unive rsity of [facility] Heart rate 2021-02-22 10:00:00 71 /min Universi ty of [facility] Respiratory rate 2021-02-22 10:00:00 13 /min [facility] Oxygen saturation in 2021-02-22 10:00:00 98 /min [facility] Arterial blood by [facility] Pulse oximetry Branch Body temperature 2021-02-22 04:21:04 37.28 Cindi Univ ersity of [facility] [place] [facility] Body height 2021-02-22 02:24:00 162.6 cm [facility] [place] [facility] Body weight 2021-02-22 02:24:00 104.327 kg [facility] [place] [facility] BMI 2021-02-22 02:24:00 39.48 kg/m2 Universi ty of [facility] [place] [facility] Diastolic blood 2021-01-27 20:31:00 91 mm[Hg] Unive rsity of pressure [place] [facility] Heart rate 2021-01-27 20:31:00 84 /min [facility] [place] [facility] Systolic blood 2021-01-27 20:31:00 145 mm[Hg] Univer sity of pressure [place] [facility] Body temperature 2021-01-27 20:25:00 36.83 Cindi Univ ersity of [place] [facility] Respiratory rate 2021-01-27 20:25:00 18 /min Univ ersity of [place] [facility] Body height 2021-01-27 20:25:00 162.6 cm [facility] [place] [facility] Body weight 2021-01-27 20:25:00 108.41 kg [facility] [place] [facility] BMI 2021-01-27 20:25:00 41.02 kg/m2 [facility] [place] [facility] Systolic blood 2021-01-19 22:16:47 128 mm[Hg] Univer sity of pressure [place] [facility] Diastolic blood 2021-01-19 22:16:47 89 mm[Hg] Unive rsity of pressure [place] [facility] Heart rate 2021-01-19 22:16:47 71 /min [facility]i ty [facility] [place] [facility] Body temperature 2021-01-19 22:16:47 37.72 Cindi Univ ersity of [place] [facility] Respiratory rate 2021-01-19 22:16:47 18 /min Univ ersity of [place] [facility] Oxygen saturation in 2021-01-19 22:16:47 100 /min [facility] Arterial blood by [facility] Pulse oximetry Branch Body weight 2021-01-19 18:09:00 106.142 kg [facility] [place] [facility] BMI 2021-01-19 18:09:00 40.17 kg/m2 [facility] [place] [facility] Systolic blood 2020-11-11 01:09:43 147 mm[Hg] Univer sity of pressure [place] [facility] Diastolic blood 2020-11-11 01:09:43 96 mm[Hg] Unive rsity of pressure [place] [facility] Heart rate 2020-11-11 01:09:43 86 /min [facility] [place] [facility] Body temperature 2020-11-11 01:09:43 37.28 Cindi Univ ersity [facility] [place] [facility] Respiratory rate 2020-11-11 01:09:43 18 /min Univ ersity of [place] [facility] Oxygen saturation in 2020-11-11 01:09:43 100 /min University of Arterial blood by [facility] dejah Pulse oximetry Branch Body weight 2020-11-11 00:06:00 106.142 kg [facility]i ty [facility] [place] [facility] BMI 2020-11-11 00:06:00 40.17 kg/m2 [facility] [place] [facility] Systolic blood 2020-11-11 01:09:43 147 mm[Hg] Univer sity of pressure [place] [facility] Diastolic blood 2020-11-11 01:09:43 96 mm[Hg] Unive rsity of pressure [place] [facility] Heart rate 2020-11-11 01:09:43 86 /min [facility] [place] [facility] Body temperature 2020-11-11 01:09:43 37.28 Cindi Univ ersity of [place] [facility] Respiratory rate 2020-11-11 01:09:43 18 /min Univ ersity of [place] [facility] Oxygen saturation in 2020-11-11 01:09:43 100 /min University of Arterial blood by [facility] dejah Pulse oximetry Branch Body weight 2020-11-11 00:06:00 106.142 kg [facility] [place] [facility] BMI 2020-11-11 00:06:00 40.17 kg/m2 [facility] [place] [facility] Systolic blood 2019-12-16 21:22:00 132 mm[Hg] Univer sity of pressure [place] [facility] Diastolic blood 2019-12-16 21:22:00 87 mm[Hg] Unive rsity of pressure [facility] Heart rate 2019-12-16 21:22:00 83 /min [facility] [place] [facility] Body height 2019-12-16 21:22:00 162.6 cm [facility] [place] [facility] Body weight 2019-12-16 21:22:00 106.142 kg [facility] [place] [facility] BMI 2019-12-16 21:22:00 40.17 kg/m2 [facility] [place] [facility] Systolic blood 2019-12-16 21:22:00 132 mm[Hg] Univer sity of pressure [place] [facility] Diastolic blood 2019-12-16 21:22:00 87 mm[Hg] Unive rsity of pressure [facility] Heart rate 2019-12-16 21:22:00 83 /min [facility] [place] [facility] Body height 2019-12-16 21:22:[address] [facility] Body weight 2019-12-16 21:22:[address] [facility] BMI 2019-12-16 21:22:00 40.17 kg/m2 [facility] Procedures Procedure Date / Time Performing Clinician Source Performed NOTICE OF PRIVACY 2021-10-31 18:23:05 Doctor Yomaira, [facility] PRACTICES [facility] CONSENT/REFUSAL FOR 2021-10-31 18:20:02 Doctor Un[place], [facility] DIAGNOSIS AND TREATMENT [facility] [place] ABDOMEN PELVIS W 2021-06-18 22:53:18 Nohemi Dinh [facility] CONTRAST [facility] ASSIGNMENT OF BENEFITS 2021-06-18 20:28:15 Doctor Yomaira, [facility] XR ABDOMEN 1 VW 2021-06-18 20:23:37 Karlee Gomez [facility] POCT TEST 2021-06-18 20:10:00 Karlee Gomez [facility] URINALYSIS 2021-06-18 20:09:00 Karlee Gomez [facility] LIPASE 2021-06-18 20:08:00 Karlee Gomez [facility] HEPATIC FUNCTION PANEL 2021-06-18 20:08:00 Karlee Gomez [facility] ([id number]) (ALB,T.PRO,BILI Medical Branch T,BU/BC,ALT,AST,ALK PHOS) BASIC METABOLIC PANEL 2021-06-18 20:08:00 Karlee Gomez [facility] (NA, K, CL, CO2, GLUCOSE, Medica l Branch BUN, CREATININE, CA) CBC WITH DIFF 2021-06-18 20:08:00 Karlee Gomez [facility] CONSENT/REFUSAL FOR 2021-06-18 19:15:28 Doctor Yomaira [facility] DIAGNOSIS AND TREATMENT [facility] [place] POCT TEST 2021-03-29 14:12:[address] [facility] ADMITTING COORDINATOR CLINIC ULTRASOUND 2021-03-29 05:01:00 Doctor Yomaira [facility] POCT TEST 2021-02-24 00:00:00 Tasha De Oliveira [facility] [place] COMP. METABOLIC PANEL 2021-02-22 04:38:00 Fredo Hogue [facility] ([id number]) Medical Branch CT ABDOMEN PELVIS W 2021-02-22 04:14:23 Riri Joiner [facility] CONTRAST Medical Branch LIPASE 2021-02-22 03:30:00 Fredo Hogue [facility] CBC WITH DIFF 2021-02-22 03:30:00 Fredo Hogue [facility] URINALYSIS 2021-02-22 03:30:00 Fredo Hogue [facility] POCT TEST 2021-02-22 03:30:00 Fredo Hogue [facility] CONSENT/REFUSAL FOR 2021-02-22 02:09:58 Doctor Yomaira, [facility] DIAGNOSIS AND TREATMENT [facility] [place] ASSIGNMENT OF BENEFITS 2021-01-27 20:14:09 Doctor Yomaira, [facility] Name Medical Branch REFERRAL- 2021-01-22 05:01:00 Doctor Yomaira, [facility] REQUEST/RESPONSE [facility] CT ABDOMEN PELVIS W 2021-01-19 21:04:54 Sam Evans [facility] CONTRAST Medical Branch POCT TEST 2021-01-19 20:54:00 Sam Evans [facility] [place] URINALYSIS 2021-01-19 20:38:00 Sam Evans [facility] [place] COMP. METABOLIC PANEL 2021-01-19 20:36:00 Sam Evans [facility] ([id number]) Medical Branch CBC WITH DIFF 2021-01-19 20:36:00 Sam Evans [place] o [facility] Medical [place] NOTICE OF PRIVACY 2021-01-19 18:00:58 Doctor Yomaira, [facility] PRACTICES [facility] CONSENT/REFUSAL FOR 2021-01-19 17:56:54 Doctor Yomaira [facility] DIAGNOSIS AND TREATMENT [facility] URINALYSIS 2020-11-11 00:46:00 Nohemi Dinh [place] o [facility] NOTICE OF PRIVACY 2020-11-11 00:01:32 Doctor Yomaira, [facility] PRACTICES [facility] CONSENT/REFUSAL FOR 2020-11-10 23:59:08 Tres Leal [facility] DIAGNOSIS AND TREATMENT [facility] INSURANCE 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 2020-02-20 05:01:00 Doctor Burnette [facility] AUTHORIZATION FOR RELEASE 2020-02-10 05:01:00 Doctor Yomaira, [facility] INSURANCE 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 2020-01-31 05:01:00 Doctor Yomaira [facility] [place] XR KNEE <3 VW RIGHT 2019-12-16 21:34:[address] [facility] ASSIGNMENT OF BENEFITS 2019-12-16 21:15:03 Doctor Yomaira, [facility] [place] Encounters Start End Encounter Admission Attending Care Care Encounter Source Date/Time Date/Time Type Type Clinicians Facility Department ID 2021-08-02 Emergency [facility] [id number] Univers 23:28[facility]-01 Emergency [facility] [id number] Univers 20:45:33 [facility] 2021-08-01 Emergency [facility] [id number] Univers 14:07:05 [facility] 2021-07-31 Emergency [facility] [id number] Univers 22:40:16 [facility] 2021-11-02 2021-11-02 Emergency EM Harris, HCAPM SKYLA [id number] [facility] 14:32:00 14:48:00 Jose [id number] [facility] 2021-11-02 2021-11-02 Emergency EM Harris, HCAPM HCAPM [id number] [facility] 14:32:00 14:48:00 Jose Mercer [facility] 2021-10-31 2021-10-31 Emergency X PATRICIA [facility] ERT [id number] Univers 12:33:00 13:01:00 KARLEE [facility] 2021-10-31 2021-10-31 Emergency [facility] 1.2.840.114 [id number] Univers 12:33:00 13:01:00 Karlee SMITH [id number] ity of [place] 4.2.7.2.686 [facility] [phone] [id number] [place] 2021-10-31 2021-10-31 Orders Doctor BREANNA 1.2.840.114 [id number] Univers 00:00:00 00:00:00 Only Unassigned, JUANY 350.1.13.10 ity of [facility] 4.2.7.2.686 Matt as [phone] [place] [address] Branch 2021-06-18 2021-06-18 Emergency [facility] [id number] Univers 14:44:00 19:42:00 Nohemi [place] [id number] i ty of [place] 4.2.7.2.686 [facility] [phone] [address] 2021-06-14 2021-06-14 Telephone Jordan Correa 1.2.840.114 [id number] Univers 00:00:00 00:00:00 , Mony Leiva 350.1.13.10 [phone] [address] 2021-04-28 2021-04-28 Outpatient TASHA MORROW [facility] [id number] 4P-20 Univers 13:30:00 13:30:00 [id number] ity [facility] 2021-04-28 2021-04-28 Outpatient TASHA MORROW [facility] [id number] Univers 13:30:00 13:30:00 ity [facility] 2021-04-15 2021-04-15 Outpatient Aravind STROUD [facility] [id number] 4P-20 Univers 14:00:00 14:00:00 KILEY [id number] ity [facility] 2021-04-15 2021-04-15 Outpatient Aravind STROUD [facility] [id number] Univers 14:00:00 14:00:00 KILEY [facility] 2021-04-12 2021-04-12 Outpatient R JACKELINE [facility] [id number] P-20 Univers 08:00:00 08:00:00 KEYSHA [id number] [facility] 2021-04-12 2021-04-12 Outpatient R JACKELINE [facility] [id number] Univers 08:00:00 08:00:00 KEYSHA [facility] 2021-04-05 2021-04-05 Office [facility] 1.2.708.775 [id number] Univers 08:36:11 09:07:09 Visit [place] 350.1.13.10 [place] [phone] [address] 2021-04-05 2021-04-05 Outpatient R ALVINO [facility] [id number] 4P-20 Univers 08:45:00 08:45:00 [id number] [facility] 2021-04-05 2021-04-05 Outpatient R [facility] [id number] Univers 08:45:00 08:45:00 [facility] 2021-04-02 2021-04-02 Telephone [facility] 1.2.840.114 [id number] Univers 00:00:00 00:00:00 [place] 350.1.13.10 [place] [phone] [address] 2021-03-29 2021-03-29 Office [facility] [id number] [id number] Univers 08:54:36 09:35:27 Visit [place] 350.1.13.10 i [place] [phone] [address] 2021-03-29 2021-03-29 Outpatient R ALVINO TASHA [facility] [id number] 4P-20 Univers 09:00:00 09:00:00 [id number] ity [facility] 2021-03-29 2021-03-29 Outpatient R TASHA DE OLIVEIRA [facility] [id number] Univers 09:00:00 09:00:00 ity [facility] 2021-03-29 2021-03-29 Orders Doctor BREANNA 1.2.840.114 [id number] Univers 00:00:00 00:00:00 Only Unassigned, JUANY 350.1.13.10 ity of [facility] 4.2.7.2.686 Matt as [phone] [address] 2021-03-19 2021-03-19 Out[facility] [id number] 4P-20 Univers 11:00:00 11:00:00 [id number] ity [facility] 2021-03-19 2021-03-19 Outpatient R TASHA DE OLIVEIRA [facility] [id number] Univers 11:00:00 11:00:00 ity [facility] 2021-03-18 2021-03-18 Telephone [facility] 1.2.840.114 [id number] Univers 00:00:00 00:00:00 [place] 350.1.13.10 [place] [phone] Sd dical nal [address] [place] [address] 2021-03-10 2021-03-10 Office Tasha De Oliveiar [facility] 1.2.642.356 [id number] Univers 13:52:09 14:30:52 Visit [place] 350.1.13.10 i [place] [phone] Sd dical nal [address] [place] [address] 2021-03-10 2021-03-10 Outpatient R TASHA DE OLIVEIRA [facility] [id number] 4P-20 Univers 14:15:00 14:15:00 [id number] ity [facility] 2021-03-10 2021-03-10 Outpatient R TASHA DE OLIVEIRA [facility] [id number] Univers 14:15:00 14:15:00 ity [facility] 2021-03-02 2021-03-02 Telephone [facility] 1.2.840.114 [id number] Univers 00:00:00 00:00:00 [place] 350.1.13.10 i [place] [phone] Sd dical nal [address] [place] [address] 2021-02-24 2021-02-24 Office Tasha De Oliveira [facility] [id number] [id number] Univers 13:22:56 14:21:21 Visit Shivani Smith 350.1.13.10 i [place] [phone] Sd dical nal [address] [place] [address] 2021-02-24 2021-02-24 Outpatient R TASHA DE OLIVEIRA [facility] [id number] 4P-20 Univers 13:30:00 13:30:00 [id number] ity [facility] 2021-02-24 2021-02-24 Outpatient R TASHA DE OLIVEIRA [facility] [id number] Univers 13:30:00 13:30:00 [facility] 2021-02-21 2021-02-22 Emergency Shital, Riri [facility] 1.2.840.114 [id number] Univers 22:04:00 05:32:00 Roni Smith 350.1.13.10 i [place] [id number] [address] 2021-01-27 2021-01-27 Office [facility] [id number] [id number] Univers 15:15:37 16:25:23 Visit Shivani Smith 350.1.13.10 i ty [place] [phone] Sd dical nal [address] [place] [address] 2021-01-27 2021-01-27 Outpatient R TASHA DE OLIVEIRA [facility] [id number] 4P-20 Univers 15:00:00 15:00:00 [id number] ity [facility] 2021-01-27 2021-01-27 Outpatient R TASHA DE OLIVEIRA [facility] [id number] Univers 15:00:00 15:00:00 ity [facility] 2021-01-27 2021-01-27 Orders Doctor BREANNA 1.2.840.114 [id number] Univers 00:00:00 00:00:00 Only Unassigned, JUANY 350.1.13.10 ity of [facility] 4.2.7.2.686 Matt as [phone] [facility] 009 Branch 2021-01-22 2021-01-22 Orders Doctor CARLOS 1.2.840.114 [id number] Univers 00:00:00 00:00:00 Only Unassigned, JUANY 350.1.13.10 ity of [facility] 4.2.7.2.686 Matt as [phone] [facility] 009 [place] 2021-01-19 2021-01-[address] [facility] 1.2.376.990 [id number] Univers 13:10:00 17:27:00 Sam Smith 350.1.13.10 i ty of [place] 4.2.7.2.686 [facility] s Atlas [phone] [facility] 084 [place] 2020-12-21 2020-12-21 Patient [facility] 1.2.840.114 [id number] Univers 00:00:00 00:00:00 Outreach Fredrick PRIMARY 350.1.13.10 i ty of [facility] 4.2.7.2.686 [facility] [phone] Sd dical 388 Branch 2020-11-10 2020-11-10 Emergency [facility] 1.2.273.161 [id number] Univers 18:08:00 20:09:00 Nohemi Smith 350.1.13.10 i ty of [place] 4.2.7.2.686 [facility] [phone] [facility] 084 Branch 2020-11-10 2020-11-10 Emergency [facility] 1.2.049.754 [id number] 18:08:00 20:09:00 Nohemi [place] 350.1.13.10 [place] 4.2.7.2.686 Atlas [phone] 084 2020-02-20 2020-02-20 Orders Doctor CARLOS 1.2.840.114 [id number] Univers 00:00:00 00:00:00 Only Unassigned, JUANY 350.1.13.10 ity of [facility] 4.2.7.2.686 Matt as [phone] [address] 2020-02-20 2020-02-20 Orders Doctor BREANNA 1.2.840.114 [id number] 00:00:00 00:00:00 Only Unassigned, JUANY 350.1.13.10 [facility] 4.2.7.2.686 [id number] [facility] 2020-02-10 2020-02-10 Orders Doctor BREANNA 1.2.840.114 [id number] Univers 00:00:00 00:00:00 Only Unassigned, JUANY 350.1.13.10 ity of [facility] 4.2.7.2.686 Matt as [phone] [address] 2020-02-10 2020-02-10 Orders Doctor CARLOS 1.2.840.114 [id number] 00:00:00 00:00:00 Only Unassigned, JUANY 350.1.13.10 [facility] 4.2.7.2.686 [phone] [facility] 2020-01-31 2020-01-31 Orders Doctor BREANNA 1.2.840.114 [id number] Univers 00:00:00 00:00:00 Only Unassigned, JUANY 350.1.13.10 ity of [facility] 4.2.7.2.686 Matt as [id number] [address] 2020-01-31 2020-01-31 Orders Doctor BREANNA 1.2.840.114 [id number] 00:00:00 00:00:00 Only Unassigned, JUANY 350.1.13.10 [facility] 4.2.7.2.686 [phone] 2020-01-29 2020-01-29 Telephone ALMA Kim 1.2.840.114 [id number] Univers 00:00:00 00:00:00 [facility] 350.1.13.10 it y of Surgical 4.2.7.2.686 Matt as Specialti [phone] [address] 2020-01-29 2020-01-29 Telephone Julio [facility] 1.2.840.114 [id number] 00:00:00 00:00:00 [facility] 350.1.13.10 Surgical 4.2.7.2.686 Specialti [phone] es [address] [place] 2020-01-28 2020-01-28 [facility] 1.2.840.114 [id number] Univers 00:00:00 00:00:00 [facility] 350.1.13.10 it y of Surgical 4.2.7.2.686 Matt as Specialti [phone] Me dical es 198 [facility] 2020-01-28 2020-01-28 [place] [facility] 1.2.840.114 [id number] 00:00:00 00:00:00 [facility] 350.1.13.10 Surgical 4.2.7.2.686 Specialti [phone] es [address] [place] 2020-01-01 2020-01-01 [facility] [id number] 4P-20 Univers 00:00:00 00:00:00 JOAQUÍN [id number] ity of [facility] 2019-12-26 2019-12-26 [place] [facility] 1.2.840.114 [id number] Univers 00:00:00 00:00:00 [facility] 350.1.13.10 it y of Surgical 4.2.7.2.686 Matt as Specialti [phone] Sd dical es 198 [facility] 2019-12-26 2019-12-26 [place] [facility] 1.2.840.114 [id number] Univers 00:00:00 00:00:00 [facility] 350.1.13.10 it y of Surgical 4.2.7.2.686 Matt as Specialti [phone] Sd dical es 198 [facility] 2019-12-26 2019-12-26 [place] [facility] 1.2.840.114 [id number] 00:00:00 00:00:00 [facility] 350.1.13.10 Surgical 4.2.7.2.686 Specialti [phone] es [address] [place] 2019-12-26 2019-12-26 Telephone [facility] 1.2.840.114 [id number] 00:00:00 00:00:00 [facility] 350.1.13.10 Surgical 4.2.7.2.686 Specialti [phone] es [address] [place] 2019-12-16 2019-12-17 Office [facility] 1.2.840.613 [id number] Univers 16:15:48 10:13:00 Visit [facility] 350.1.13.10 it y of Surgical 4.2.7.2.686 Matt as Specialti [phone] Me dical es 198 [facility] 2019-12-16 2019-12-17 Office [facility] 1.2.307.431 [id number] 16:15:48 10:13:00 Visit Joaquín Bedolla 350.1.13.10 Surgical 4.2.7.2.686 Specialti [phone] es [address] [place] 2019-12-16 2019-12-16 Outpatient [facility] [id number] Univers 16:34:01 23:59:00 MAIA ity of [facility] 2019-12-16 2019-12-16 [facility] 1.2.840.114 [id number] Univers 16:34:00 23:59:00 Encounter Maia Bedolla 350.1.13.10 ity of Surgical 4.2.7.2.686 Matt as Specialti [phone] Me dical es 809 [facility] 2019-12-16 2019-12-16 Outpatient [facility] [id number] 4P-20 Univers 16:00:00 16:00:00 JOAQUÍN [id number] ity of [facility] 2019-12-16 2019-12-16 Orders Doctor BREANNA 1.2.840.114 [id number] Univers 00:00:00 00:00:00 Only Unassigned, JUANY 350.1.13.10 ity of [facility] 4.2.7.2.686 Matt as [phone] [address] Results Test Description Test Time Test Comments Results Result Comments Source HEPATIC FUNCTION PANEL (81870) (ALB,T.PRO,BILI 2021-06-18 20 :35:07 T,BU/BC,ALT,AST,ALK PHOS) Test Item Value Reference Range Interpretation Comme nts TOTAL BILI (test code = 6612574413) 0.3 mg/dL 0.1-1.1 BILI UNCON (test code = 2246852198) 0.3 mg/dL 0.1-1.1 BILI CONJ (test code = 8986046900) 0.0 mg/dL 0.0-0.3 T PROTEIN (test code = 2863247090) 7.6 g/dL 6.3-8.2 ALBUMIN (test code = 2467957258) 4.3 g/dL 3.5-5.0 ALK PHOS (test code = 0392882256) 77 U/L 34-122 ALTv (test code = 1742-6) 42 U/L 5-35 H AST(SGOT) (test code = 9639931569) 33 U/L 13-40 Lab Interpretation (test code = 06409-6) [facility]normal [facility] (89393[facility] (ALB,T.PRO,BILI T,BU/BC,ALT,AST,ALK PHOS)2021-06-18 20:35:07 Test Item Value Reference Range Interpretation Comments TOTAL BILI (test code = 5409149992) 0.3 mg/dL 0.1-1.1 BILI UNCON (test code = 9736001410) 0.3 mg/dL 0.1-1.1 BILI CONJ (test code = 1529301302) 0.0 mg/dL 0.0-0.3 T PROTEIN (test code = 2721505992) 7.6 g/dL 6.3-8.2 ALBUMIN (test code = 7509461380) 4.3 g/dL 3.5-5.0 ALK PHOS (test code = 3785719248) 77 U/L 34-122 ALTv (test code = 1742-6) 42 U/L 5-35 H AST(SGOT) (test code = 7767601241) 33 U/L 13-40 Lab Interpretation (test code = Abnormal 37943-7) [facility] (NA, K, CL, CO2, GLUCOSE, BUN, CREATININE, CA)2021-06-18 20:34:47 Test Item Value Reference Range Interpretation Comments NA (test code = 136 mmol/L 135-145 6571295584) K (test code = 4.3 mmol/L 3.5-5.0 6044214865) CL (test code = 105 mmol/L 98-108 2885219465) CO2 TOTAL (test code = 24 mmol/L 23-31 9879352310) AGAP (test code = 2-16 7672181411) BUN (test code = 9 mg/dL 7-23 1285023322) GLUCOSE (test code = 112 mg/dL 70-110 H 7286440041) CREATININE (test code = 0.80 mg/dL 0.50-1.04 1981078676) CALCIUM (test code = 8.8 mg/dL 8.6-10.6 1559678575) eGFR (test code = mL/min/1.73m2 2466362853) ISAMAR (test code = ISAMAR) Association of Glomerular Filtration Rate (GFR) and Staging of Kidney Disease* + --+ --+ ------+| GFR (mL/min/1.73 m2) ?| With Kidney Damage ?| ?Without Kidney Damage+ --------+ --------+ +| ?>90 ?| ?Stage one ?| ? Normal ?+ ---+ ---+ -------+| ?60-89 ?| ?Stage two ?| ? Decreased GFR ? + --+ --+ ------+| ?30-59 ?| ?Stage three ?| ? Stage three ? + --+ --+ ------+| ?15-29 ?| ?Stage four ? | ? Stage four ?+ ---+ ---+ -------+| ?<15 (or dialysis) ? ?| ?Stage five ? | ? Stage five ?+ ---+ ---+ -------+ *Each stage assumes the associated GFR level has been in effect for at least three months. ?Stages 1 to 5, with or without kidney disease, indicate chronic kidney disease. Notes: Determination of stages one and two (with eGFR >59mL/min/1.73 m2) requires estimation of kidney damage for at least three months as defined by structural or functional abnormalities of the kidney, manifested by either:Pathological abnormalities or Markers of kidney damage (including abnormalities in the composition of the blood or urine or abnormalities in imaging tests). Lab Interpretation Abnormal (test code = 90818-7) [facility] 20:34:47 Test Item Value Reference Range Interpretation Comments LIPASE (test code = 9324288110) 74 U/L 0-220 Lab Interpretation (test code = Normal 29515-5) [facility] (NA, K, CL, CO2, GLUCOSE, BUN, CREATININE, CA)2021-06-18 20:34:47 Test Item Value Reference Range Interpretation Comments NA (test code = 136 mmol/L 135-145 4740518052) K (test code = 4.3 mmol/L 3.5-5.0 5860521139) CL (test code = 105 mmol/L 98-108 4876740504) CO2 TOTAL (test code = 24 mmol/L 23-31 4982172650) AGAP (test code = 2-16 1462316592) BUN (test code = 9 mg/dL 7-23 4558777893) GLUCOSE (test code = 112 mg/dL 70-110 H 4597263262) CREATININE (test code = 0.80 mg/dL 0.50-1.04 9271889854) CALCIUM (test code = 8.8 mg/dL 8.6-10.6 2598821731) eGFR (test code = mL/min/1.73m2 7243219243) ISAMAR (test code = ISAMAR) Association of Glomerular Filtration Rate (GFR) and Staging of Kidney Disease* + --+ --+ ------+| GFR (mL/min/1.73 m2) ?| With Kidney Damage ?| ?Without Kidney Damage+ --------+ --------+ +| ?>90 ?| ?Stage one ?| ? Normal ?+ ---+ ---+ -------+| ?60-89 ?| ?Stage two ?| ? Decreased GFR ? + --+ --+ ------+| ?30-59 ?| ?Stage three ?| ? Stage three ? + --+ --+ ------+| ?15-29 ?| ?Stage four ? | ? Stage four ?+ ---+ ---+ -------+| ?<15 (or dialysis) ? ?| ?Stage five ? | ? Stage five ?+ ---+ ---+ -------+ *Each stage assumes the associated GFR level has been in effect for at least three months. ?Stages 1 to 5, with or without kidney disease, indicate chronic kidney disease. Notes: Determination of stages one and two (with eGFR >59mL/min/1.73 m2) requires estimation of kidney damage for at least three months as defined by structural or functional abnormalities of the kidney, manifested by either:Pathological abnormalities or Markers of kidney damage (including abnormalities in the composition of the blood or urine or abnormalities in imaging tests). Lab Interpretation Abnormal (test code = 47052-8) [facility] 20:34:47 Test Item Value Reference Range Interpretation Comments LIPASE (test code = 8708520858) 74 U/L 0-220 Lab Interpretation (test code = Normal 16025-0) [facility] CenterCB WITH [id number] 20:27:26 Test Item Value Reference Range Interpretation Comments WBC (test code = See_Comment [Automated message] 5290-2) The system [employer] generated this result transmitted ref erence range: 4.30 - 1 1.10 10*3/?L. The re ference range was not u sed to interpret this result as normal/abnor mal. RBC (test code = See_Comment [Automated message] 9-8) The system [employer] generated this result transmitted ref erence range: 3.93 - 5 .25 10*6/?L. The re ference range was not u sed to interpret this result as normal/abnor mal. HGB (test code = 12.3 g/dL 11.6-15.0 718-7) HCT (test code = 38.2 % 35.7-45.2 4544-3) MCV (test code = 89.0 fL 80.6-95.5 787-2) MCH (test code = 28.7 pg 25.9-32.8 785-6) MCHC (test code = 32.2 g/dL 31.6-35.1 786-4) RDW-SD (test code 46.2 fL 39.0-49.9 = 91173-1) RDW-CV (test code 14.2 % 12.0-15.5 = 788-0) PLT (test code = See_Comment [Automated message] 777-3) The system whic h generated this result transmitted ref erence range: 166 - 35 8 10*3/?L. The re ference range was not u sed to interpret this result as normal/abnor mal. MPV (test code = 11.3 fL 9.5-12.9 46254-4) NRBC/100 WBC (test See_Comment [Automat ed message] code = 9647304548) The syste m which generated this result transmitted ref erence range: 0.0 - 10 .0 /100 WBCs. The refer ence range was not u sed to interpret this result as normal/abnor mal. NRBC x10^3 (test <0.01 See_Comment [Automated message] code = 4137008604) The syste m which generated this result transmitted ref erence range: 10*3/?L. The reference range was not used to interpr et this result as normal/abnormal . GRAN MAT (NEUT) % 65.2 % (test code = 770-8) IMM GRAN % (test 0.20 % code = 1738627503) LYMPH % (test code 24.7 % = 736-9) MONO % (test code 6.4 % = 5905-5) EOS % (test code = 2.6 % 713-8) BASO % (test code 0.9 % = 706-2) GRAN MAT 3.80 10*3/uL 1.88-7.09 x10^3(ANC) (test code = 1782606633) IMM GRAN x10^3 <0.03 0.00-0.06 (test code = 0639848092) LYMPH x10^3 (test 1.44 10*3/uL 1.32-3.29 code = 731-0) MONO x10^3 (test 0.37 10*3/uL 0.33-0.92 code = 742-7) EOS x10^3 (test 0.15 10*3/uL 0.03-0.39 code = 711-2) BASO x10^3 (test 0.05 10*3/uL 0.01-0.07 code = 704-7) [facility] WITH [id number] 20:27:26 Test Item Value Reference Range Interpretation Comments WBC (test code = See_Comment [Automated message] 6690-2) The system [employer] generated this result transmitted ref erence range: 4.30 - 1 1.10 10*3/?L. The re ference range was not u sed to interpret this result as normal/abnor mal. RBC (test code = See_Comment [Automated message] 789-8) The system [employer] generated this result transmitted ref erence range: 3.93 - 5 .25 10*6/?L. The re ference range was not u sed to interpret this result as normal/abnor mal. HGB (test code = 12.3 g/dL 11.6-15.0 718-7) HCT (test code = 38.2 % 35.7-45.2 4544-3) MCV (test code = 89.0 fL 80.6-95.5 787-2) MCH (test code = 28.7 pg 25.9-32.8 785-6) MCHC (test code = 32.2 g/dL 31.6-35.1 786-4) RDW-SD (test code 46.2 fL 39.0-49.9 = 77810-2) RDW-CV (test code 14.2 % 12.0-15.5 = 788-0) PLT (test code = See_Comment [Automated message] 777-3) The system [employer] generated this result transmitted ref erence range: 166 - 35 8 10*3/?L. The re ference range was not u sed to interpret this result as normal/abnor mal. MPV (test code = 11.3 fL 9.5-12.9 93232-2) NRBC/100 WBC (test See_Comment [Automat ed message] code = [id number]) The syste m which generated this result transmitted ref erence range: 0.0 - 10 .0 /100 WBCs. The refer ence range was not u sed to interpret this result as normal/abnor mal. NRBC x10^3 (test <0.01 See_Comment [Automated message] code = [id number]) The syste m which generated this result transmitted ref erence range: 10*3/?L. The reference range was not used to interpr et this result as normal/abnormal . GRAN MAT (NEUT) % 65.2 % (test code = 770-8) IMM GRAN % (test 0.20 % code = [id number]) LYMPH % (test code 24.7 % = 736-9) MONO % (test code 6.4 % = 5905-5) EOS % (test code = 2.6 % 713-8) BASO % (test code 0.9 % = 706-2) GRAN MAT 3.80 10*3/uL 1.88-7.09 x10^3(ANC) (test code = 2520827841) IMM GRAN x10^3 <0.03 0.00-0.06 (test code = 0205032640) LYMPH x10^3 (test 1.44 10*3/uL 1.32-3.29 code = 731-0) MONO x10^3 (test 0.37 10*3/uL 0.33-0.92 code = 742-7) EOS x10^3 (test 0.15 10*3/uL 0.03-0.39 code = 711-2) BASO x10^3 (test 0.05 10*3/uL 0.01-0.07 code = 704-7) [facility] [id number] 20:10:00 Test Item Value Reference Range Interpretation Comments POCT PREG (test code = 1605) negative On board controls acceptable with C present Line (test code = 3574) Lab Interpretation (test code = Normal 21506-1) [facility] [id number] 20:10:00 Test Item Value Reference Range Interpretation Comments POCT PREG (test code = 1605) negative On board controls acceptable with C present Line (test code = 3574) Lab Interpretation (test code = Normal 37500-8) [facility] [id number] 14:12:00 Test Item Value Reference Range Interpretation Comments POCT PREG (test code Negative = 1605) On board controls Yes acceptable with C Line (test code = 3574) POCT PREG LOT # (test code = 3575) POCT PREG TEST DATE (test code = 3576) ISAMAR (test code = ISAMAR) accurate development and interpretation of all internal controls [facility] [id number] 14:12:00 Test Item Value Reference Range Interpretation Comments POCT PREG (test code Negative = 1605) On board controls Yes acceptable with C Line (test code = 3574) POCT PREG LOT # (test code = 3575) POCT PREG TEST DATE (test code = 3576) ISAMAR (test code = ISAMAR) accurate development and interpretation of all internal controls [facility] [id number] 19:07:00 Test Item Value Reference Range Interpretation Comments POCT PREG (test code = 1605) Negative On board controls acceptable with C Yes Line (test code = 3574) POCT PREG LOT # (test code = 3575) POCT PREG TEST DATE (test code = 3576) Lab Interpretation (test code = Normal 08522-7) [facility] [id number] 19:07:00 Test Item Value Reference Range Interpretation Comments POCT PREG (test code = 1605) Negative On board controls acceptable with C Yes Line (test code = 3574) POCT PREG LOT # (test code = 3575) POCT PREG TEST DATE (test code = 3576) Lab Interpretation (test code = Normal 87381-8) [facility] [id number] 19:07:00 Test Item Value Reference Range Interpretation Comments POCT PREG (test code = 1605) Negative On board controls acceptable with C Yes Line (test code = 3574) POCT PREG LOT # (test code = 3575) POCT PREG TEST DATE (test code = 3576) Lab Interpretation (test code = Normal 66422-3) [facility] [id number] 05:20:14 Test Item Value Reference Range Interpretation Comments NA (test code = 139 mmol/L 135-145 5226011890) K (test code = 2.8 mmol/L 3.5-5.0 LL 3437454568) CL (test code = 113 mmol/L 98-108 H 5634627854) CO2 TOTAL (test code = 21 mmol/L 23-31 L 9840032977) AGAP (test code = 2-16 3247933566) BUN (test code = 10 mg/dL 7-23 1589310853) GLUCOSE (test code = 68 mg/dL 70-110 L 6022108615) CREATININE (test code = 0.47 mg/dL 0.50-1.04 L 6982363254) TOTAL BILI (test code = 0.3 mg/dL 0.1-1.7 2233288225) CALCIUM (test code = 6.7 mg/dL 8.6-10.6 L 2972844016) T PROTEIN (test code = 5.1 g/dL 6.3-8.2 L 3312813905) ALBUMIN (test code = 2.8 g/dL 3.5-5.0 L 6737139291) ALK PHOS (test code = 54 U/L 34-122 9530120236) ALTv (test code = 10 U/L 5-35 1742-6) AST(SGOT) (test code = 17 U/L 13-40 0081731143) eGFR (test code = mL/min/1.73m2 6760687170) ISAMAR (test code = ISAMAR) Association of Glomerular Filtration Rate (GFR) and Staging of Kidney Disease* + --+ --+ ------+| GFR (mL/min/1.73 m2) ?| With Kidney Damage ?| ?Without Kidney Damage+ --------+ --------+ +| ?>90 ?| ?Stage one ?| ? Normal ?+ ---+ ---+ -------+| ?60-89 ?| ?Stage two ?| ? Decreased GFR ? + --+ --+ ------+| ?30-59 ?| ?Stage three ?| ? Stage three ? + --+ --+ ------+| ?15-29 ?| ?Stage four ? | ? Stage four ?+ ---+ ---+ -------+| ?<15 (or dialysis) ? ?| ?Stage five ? | ? Stage five ?+ ---+ ---+ -------+ *Each stage assumes the associated GFR level has been in effect for at least three months. ?Stages 1 to 5, with or without kidney disease, indicate chronic kidney disease. Notes: Determination of stages one and two (with eGFR >59mL/min/1.73 m2) requires estimation of kidney damage for at least three months as defined by structural or functional abnormalities of the kidney, manifested by either:Pathological abnormalities or Markers of kidney damage (including abnormalities in the composition of the blood or urine or abnormalities in imaging tests). Lab Interpretation Abnormal (test code = 99441-9) [facility] with [id number] 04:44:04 Test Item Value Reference Range Interpretation Comments WBC (test code = See_Comment [Automated message] 6690-2) The system [employer] generated this result transmitted ref erence range: 4.30 - 1 1.10 10*3/?L. The re ference range was not u sed to interpret this result as normal/abnor mal. RBC (test code = See_Comment [Automated message] 759-8) The system [employer] generated this result transmitted ref erence range: 3.93 - 5 .25 10*6/?L. The re ference range was not u sed to interpret this result as normal/abnor mal. HGB (test code = 12.8 g/dL 11.6-15.0 718-7) HCT (test code = 38.8 % 35.7-45.2 4544-3) MCV (test code = 88.4 fL 80.6-95.5 787-2) MCH (test code = 29.2 pg 25.9-32.8 785-6) MCHC (test code = 33.0 g/dL 31.6-35.1 786-4) RDW-SD (test code 45.1 fL 39.0-49.9 = 33461-1) RDW-CV (test code 13.8 % 12.0-15.5 = 788-0) PLT (test code = See_Comment [Automated message] 517-3) The system [employer] generated this result transmitted ref erence range: 166 - 35 8 10*3/?L. The re ference range was not u sed to interpret this result as normal/abnor mal. MPV (test code = 12.0 fL 9.5-12.9 28162-0) NRBC/100 WBC (test See_Comment [Automat ed message] code = 7883283490) The [employer] System which generated this result transmitted ref erence range: 0.0 - 10 .0 /100 WBCs. The refer ence range was not u sed to interpret this result as normal/abnor mal. NRBC x10^3 (test <0.01 See_Comment [Automated message] code = 2996615004) The syste m which generated this result transmitted ref erence range: 10*3/?L. The reference range was not used to interpr et this result as normal/abnormal . GRAN MAT (NEUT) % 50.4 % (test code = 770-8) IMM GRAN % (test 0.50 % code = 2818354424) LYMPH % (test code 37.3 % = 736-9) MONO % (test code 7.2 % = 5905-5) EOS % (test code = 3.6 % 713-8) BASO % (test code 1.0 % = 706-2) GRAN MAT 2.94 10*3/uL 1.88-7.09 x10^3(ANC) (test code = 2364896152) IMM GRAN x10^3 0.03 10*3/uL 0.00-0.06 (test code = 5773527313) LYMPH x10^3 (test 2.18 10*3/uL 1.32-3.29 code = 731-0) MONO x10^3 (test 0.42 10*3/uL 0.33-0.92 code = 742-7) EOS x10^3 (test 0.21 10*3/uL 0.03-0.39 code = 711-2) BASO x10^3 (test 0.06 10*3/uL 0.01-0.07 code = 704-7) [facility] Center[facility]inalysis2021[facility] 04:29:33 Test Item Value Reference Range Interpretation Comments APPEARANCE (test code = Hazy Clear A 9797243771) COLOR (test code = Yellow Yellow 3799210217) PH (test code = 4.8-8.0 8583022646) SP GRAVITY (test code = 1.003-1.030 7281990206) GLU U QUAL (test code = Normal Normal 9017563923) BLOOD (test code = Negative Negative 8191121650) KETONES (test code = Negative Negative 8679916614) PROTEIN (test code = 30 mg/dL Negative A 2887-8) UROBILIN (test code = 2.0 mg/dL Normal A 2214898335) BILIRUBIN (test code = Negative Negative 5199676369) NITRITE (test code = Negative Negative 8013744181) LEUK SOULEYMANE (test code = Negative Negative 7413719669) RBC/HPF (test code = <1 See_Comment [Autom ated message] 2225485330) The system [employer] generated this result transmit [place] reference range : 0 - 3 HPF. The refe rence range was not u sed to interpret th is result as normal/abnormal . WBC/HPF (test code = <1 See_Comment [Autom ated message] 3781412912) The system [employer] generated this result transmit [place] reference range : 0 - 5 HPF. The refe rence range was not u sed to interpret th is result as normal/abnormal . BACTERIA (test code = Negative Negative 5906331384) MUCOUS (test code = Moderate Negative LPF A 4996367049) AMORPHOUS (test code = Rare Rare HPF 6675016165) SQ EPITH (test code = HPF 3832338451) Lab Interpretation (test Abnormal code = 24146-2) [facility] CenterLip[facility], [id number] 04:21:21 Test Item Value Reference Range Interpretation Comments LIPASE (test code = 5107250219) 69 U/L 0-220 Lab Interpretation (test code = Normal 44772-6) [facility] CenterPO[facility] [id number] 03:30:00 Test Item Value Reference Range Interpretation Comments POCT PREG (test code = 1605) negative On board controls acceptable with C present Line (test code = 3574) Lab Interpretation (test code = Normal 31598-1) [facility] CenterCOMP. METABOLIC PANEL ([id number])2021-01-19 21:36:57 Test Item Value Reference Range Interpretation Comments NA (test code = 139 mmol/L 135-145 3800271100) K (test code = 4.2 mmol/L 3.5-5.0 6178721367) CL (test code = 106 mmol/L 98-108 1517664295) CO2 TOTAL (test code = 24 mmol/L 23-31 0637811013) AGAP (test code = 2-16 1098386445) BUN (test code = 20 mg/dL 7-23 8921086895) GLUCOSE (test code = 89 mg/dL 70-110 2983923276) CREATININE (test code = 0.73 mg/dL 0.50-1.04 3450553985) TOTAL BILI (test code = 0.6 mg/dL 0.1-1.7 5197977040) CALCIUM (test code = 9.0 mg/dL 8.6-10.6 9482796591) T PROTEIN (test code = 7.5 g/dL 6.3-8.2 8052467325) ALBUMIN (test code = 4.5 g/dL 3.5-5.0 7912831310) ALK PHOS (test code = 87 U/L 34-122 5924517251) ALTv (test code = 24 U/L 5-35 2-6) AST(SGOT) (test code = 42 U/L 13-40 H 0987601888) eGFR (test code = mL/min/1.73m2 7151771894) ISAMAR (test code = ISAMAR) Association of Glomerular Filtration Rate (GFR) and Staging of Kidney Disease* + --+ --+ ------+| GFR (mL/min/1.73 m2) ?| With Kidney Damage ?| ?Without Kidney Damage+ --------+ --------+ +| ?>90 ?| ?Stage one ?| ? Normal ?+ ---+ ---+ -------+| ?60-89 ?| ?Stage two ?| ? Decreased GFR ? + --+ --+ ------+| ?30-59 ?| ?Stage three ?| ? Stage three ? + --+ --+ ------+| ?15-29 ?| ?Stage four ? | ? Stage four ?+ ---+ ---+ -------+| ?<15 (or dialysis) ? ?| ?Stage five ? | ? Stage five ?+ ---+ ---+ -------+ *Each stage assumes the associated GFR level has been in effect for at least three months. ?Stages 1 to 5, with or without kidney disease, indicate chronic kidney disease. Notes: Determination of stages one and two (with eGFR >59mL/min/1.73 m2) requires estimation of kidney damage for at least three months as defined by structural or functional abnormalities of the kidney, manifested by either:Pathological abnormalities or Markers of kidney damage (including abnormalities in the composition of the blood or urine or abnormalities in imaging tests). Lab Interpretation Abnormal (test code = 01757-0) [facility] CenterURINALYSIS2021-04-20 21:25:51 Test Item Value Reference Range Interpretation Comments APPEARANCE (test code = Hazy Clear A 4929019328) COLOR (test code = Yellow Yellow 4814860577) PH (test code = 4.8-8.0 7814545484) SP GRAVITY (test code = 1.003-1.030 H 2214622551) GLU U QUAL (test code = Normal Normal 0113620317) BLOOD (test code = Negative Negative 6894415276) KETONES (test code = 5 mg/dL Negative A 5011584109) PROTEIN (test code = 30 mg/dL Negative A 2887-8) UROBILIN (test code = 2.0 mg/dL Normal A 4796044186) BILIRUBIN (test code = Negative Negative 2362322544) NITRITE (test code = Negative Negative 2823345210) LEUK SOULEYMANE (test code = Negative Negative 1800324129) RBC/HPF (test code = See_Comment H [Autom ated message] 9273397693) The system [employer] generated this result transmit [place] reference range : 0 - 3 HPF. The refe rence range was not u sed to interpret th is result as normal/abnormal . WBC/HPF (test code = See_Comment [Autom ated message] 6328345207) The system [employer] generated this result transmit [place] reference range : 0 - 5 HPF. The refe rence range was not u sed to interpret th is result as normal/abnormal . BACTERIA (test code = Negative Negative 5571881942) MUCOUS (test code = Marked Negative LPF A 7841558510) SQ EPITH (test code = HPF 3410146276) Lab Interpretation (test Abnormal code = 68385-3) [facility] CenterCT ABDOMEN PELVIS W [id number] 21:15:43CT Abdomen and Pelvis with intravenous contrast. CLINICAL HISTORY: Acute generalized Abdominal pain.DOSE: Up-to-date CT equipment and radiation dose reduction techniques wereemployed. CTDIvol: 12.82 mGy. DLP: 649 mGy-cm. TECHNIQUE : Contiguous axial imaging from the level of the lung basesthrough the pubic symphysis were performed after the uncomplicatedadministration of Omnipaque contrast material. ?Coronal and sagittalreconstructions were obtained. Auto mA and/or iterative reconstruction wereused to reduce radiation dose. FINDINGS: Comparison made with 01/22/[address] studies.Lower lungs: Clear. No pleural effusion or pericardial effusion. Liver, Gallbladder and Spleen: Liver measures 15.3 cm and showed no focallesions. Spleen is approximately 10.8 x 4 cm and appears normal. Nocalcified gallstones are seen. Biliary ducts and the pancreatic duct appearof normal size. Peritoneum: ?No free air or free fluid. No lymphadenopathy. Pancreas and Adrenals: ?Unremarkable pancreas and adrenal glands. Kidneys and Ureters: ?No visible calculi in the renal collecting systems. No hydroureter or hydronephrosis. No enhancing kidney lesions detected. Vessels: Normal. Patent hepatic/portal veins and renal veins. Retroperitoneum: No abnormal fluid or lymphadenopathy. Bowel: Diverticulosisof the sigmoid and descending colon noted without anyacute changes. Normal appendix is visualized. Small bowel gas pattern isunremarkable. Bladder and Reproductive Organs: Enlarged uterus with at leastone 5.5 cmsize fibroid along the left anterior wall near the fundus. Left ovarycontains 16 mm corpusluteum and the right ovary contains 27 mm hypodenselesion which could be simple cyst.Urinary bladderis collapsed and could not be evaluated. Bones: No acute findings. Soft tissues: 4 cm size supraumbilical midline abdominal wall herniacontaining intra- abdominal fat and vessels without any complications. 2.5cm size umbilical hernia noted containing fat. CONCLUSION:1. No acute intra-abdominal or pelvic abnormalities detected.2. Supraumbilical midline abdominal wall hernia as well as umbilical herniawithout any complications.3. Enlarged uterus due to a large 5.5 cm size partially calcified uterinefibroid. [facility], Radiant Results Inft User - 01/19/2021 4:16 PM CDTCT Abdomen and Pelvis with intravenous contrast.CLINICAL HISTORY: Acute generalized Abdominal pain.DOSE: Up-to-date CT equipment and radiation dose reduction techniques wereemployed. CTDIvol: 12.82 mGy. DLP: 649 mGy-cm.TECHNIQUE : Contiguous axial imaging from the level of the lung basesthrough the pubic symphysis were performed afterthe uncomplicatedadministration of Omnipaque contrast material. Coronal and sagittalreconstructionswere obtained. Auto mA and/or iterative reconstruction wereused to reduce radiation dose.FINDINGS: Comparison made with 01/22/[address] studies.Lower lungs: Clear. No pleural effusionor pericardial effusion.Liver, Gallbladder and Spleen: Liver measures 15.3 cm and showed no focallesions. Spleen is approximately 10.8 x 4 cm and appears normal. Nocalcified gallstones are seen. Biliary ducts and the pancreatic duct appearof normal size.Peritoneum: No free air or free fluid. No lymphadenopathy.Pancreas and Adrenals: Unremarkable pancreas and adrenal glands.Kidneys and Ureters: No visible calculi in the renal collecting systems. No hydroureter or hydronephrosis. No enhancing kidney lesions detected. Vessels: Normal. Patent hepatic/portal veins and renal veins.Retroperitoneum: No abnormal fluid or lymphadenopathy.Bowel: Diverticulosis of the sigmoid and descending colon noted without anyacute changes. Normal appendix is visualized. Small bowel gas pattern isunremarkable.Bladder and Reproductive Organs: Enlarged uterus with at least one 5.5 cmsize fibroid along the left anteriorwall near the fundus. Left ovarycontains 16 mm corpus luteum and the right ovary contains 27 mm hypod enselesion which could be simple cyst.Urinary bladder is collapsed and could not be evaluated.Bones:No acute findings.Soft tissues: 4 cm size supraumbilical midline abdominal wall herniacontaining intra-abdominal fat and vessels without any complications. 2.5cm size umbilical hernia noted containing f at.CONCLUSION:1. No acute intra-abdominal or pelvic abnormalities detected.2. Supraumbilical midlineabdominal wall hernia as well as umbilical herniawithout any complications.3. Enlarged uterus due toa large 5.5 cm size partially calcified uterinefibroid.[facility] WITH DIFF 2021-01-19 21:09:09 Test Item Value Reference Range Interpretation Comments WBC (test code = See_Comment [Automated message] 6690-2) The system [employer] generated this result transmitted ref erence range: 4.30 - 1 1.10 10*3/?L. The re ference range was not u sed to interpret this result as normal/abnor mal. RBC (test code = See_Comment [Automated message] 789-8) The system [employer] generated this result transmitted ref erence range: 3.93 - 5 .25 10*6/?L. The re ference range was not u sed to interpret this result as normal/abnor mal. HGB (test code = 13.1 g/dL 11.6-15.0 718-7) HCT (test code = 40.4 % 35.7-45.2 4544-3) MCV (test code = 88.4 fL 80.6-95.5 787-2) MCH (test code = 28.7 pg 25.9-32.8 785-6) MCHC (test code = 32.4 g/dL 31.6-35.1 786-4) RDW-SD (test code 45.5 fL 39.0-49.9 = 16869-3) RDW-CV (test code 14.0 % 12.0-15.5 = 788-0) PLT (test code = See_Comment [Automated message] 777-3) The system [employer] generated this result transmitted ref erence range: 166 - 35 8 10*3/?L. The re ference range was not u sed to interpret this result as normal/abnor mal. MPV (test code = 11.4 fL 9.5-12.9 43124-1) NRBC/100 WBC (test See_Comment [Automat ed message] code = 9965520337) The syste m which generated this result transmitted ref erence range: 0.0 - 10 .0 /100 WBCs. The refer ence range was not u sed to interpret this result as normal/abnor mal. NRBC x10^3 (test <0.01 See_Comment [Automated message] code = 4028351854) The syste m which generated this result transmitted ref erence range: 10*3/?L. The reference range was not used to interpr et this result as normal/abnormal . GRAN MAT (NEUT) % 68.5 % (test code = 770-8) IMM GRAN % (test 0.40 % code = 7177071723) LYMPH % (test code 23.1 % = 736-9) MONO % (test code 6.1 % = 5905-5) EOS % (test code = 1.2 % 713-8) BASO % (test code 0.7 % = 706-2) GRAN MAT 5.18 10*3/uL 1.88-7.09 x10^3(ANC) (test code = 2269136862) IMM GRAN x10^3 0.03 10*3/uL 0.00-0.06 (test code = 4836134017) LYMPH x10^3 (test 1.75 10*3/uL 1.32-3.29 code = 731-0) MONO x10^3 (test 0.46 10*3/uL 0.33-0.92 code = 742-7) EOS x10^3 (test 0.09 10*3/uL 0.03-0.39 code = 711-2) BASO x10^3 (test 0.05 10*3/uL 0.01-0.07 code = 704-7) [facility] CenterPOCT [id number] 20:54:00 Test Item Value Reference Range Interpretation Comments POCT PREG (test code = 1605) neg On board controls acceptable with yes C Line (test code = 3574) POCT PREG LOT # (test code = 3575) [id number] POCT PREG TEST DATE (test 08/31/2022 code = 3576) Lab Interpretation (test code = Normal 11151-6) [facility]URIN[facility]IS2021-[facility]-10 01:31:00 Test Item Value Reference Range Interpretation Comments APPEARANCE (test code = Clear Clear 1985070616) COLOR (test code = Yellow Yellow 3491066082) PH (test code = 4.8-8.0 9290322969) SP GRAVITY (test code = 1.003-1.030 4545199063) GLU U QUAL (test code = Normal Normal 2876141082) BLOOD (test code = Negative Negative 7628372672) KETONES (test code = 5 mg/dL Negative A 1011713759) PROTEIN (test code = Negative Negative 2887-8) UROBILIN (test code = 2.0 mg/dL Normal A 3271931394) BILIRUBIN (test code = Negative Negative 2938522955) NITRITE (test code = Negative Negative 9518060369) LEUK SOULEYMANE (test code = Negative Negative 4119592401) RBC/HPF (test code = See_Comment [Autom ated message] 3907855388) The system [employer] generated this result transmit [place] reference range : 0 - 3 HPF. The refe rence range was not u sed to interpret th is result as normal/abnormal . WBC/HPF (test code = See_Comment [Autom ated message] 1686113282) The system [employer] generated this result transmit [place] reference range : 0 - 5 HPF. The refe rence range was not u sed to interpret th is result as normal/abnormal . BACTERIA (test code = Negative Negative 6633193414) MUCOUS (test code = Slight Negative LPF A 0524254728) SQ EPITH (test code = <1 HPF 3867056546) Lab Interpretation (test Abnormal code = 59728-7) [facility] CenterXR KNEE <3 VW [id number] 21:49:55 Narrowing on right knee 4mm, no fractureUnAudie L. [facility]"
[2022-03-06] MEDS ORDERED: DIPHENHYDRAMINE 50 MG/ML VIAL ONE (22:55)
[2022-03-06] MEDS ORDERED: dexAMETHasone 10 MG/ML VIAL ONE (22:55)
[2022-03-06] MEDS ORDERED: NA CHLORIDE 0.9% 500 ML ONE (22:55)
[2022-03-06] MEDS ORDERED: METOCLOPRAMIDE 10 MG/2mL INJ ONE (22:55)
--- NOTE | 2022-03-07 00:50 | EDPHYS ---
Physician Documentation [facility] Name: Kristina Christensen Age: 36 yrs Sex: Female : 1985 Arrival Date: 03/06/2022 Time: 21:43 Bed 16 Private MD: ED Physician Fly Basurto HPI: 03/06 22:17 This 36 yrs old Black Female presents to ER via Wheelchair with complaints of Back jmm Pain, Neck Pain, >24Hrs Old, Eye Pain, High Blood Pressure. 22:17 This is a 37-year-old female with history of hypertension, CVA, epilepsy the presents jmm emerged part with complaints of right retro-orbital headache beginning at approximately 2 PM today progressively worsening throughout the day. Patient has had similar headaches in the past but this 1 is worse than previous.. 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 - Social history:: Smoking status: Reported history of juuling and/or vaping. Patient denies any tobacco usage or history of. ROS: 22:17 Constitutional: Negative for fever, chills, and weight loss, Cardiovascular: Negative jmm for chest pain, palpitations, and edema, Respiratory: Negative for shortness of breath, cough, wheezing, and pleuritic chest pain. 22:17 Neuro: Positive for headache. 22:17 All other systems are negative. Exam: 22:17 Constitutional: This is a well developed, well nourished patient who is awake, alert, jmm and in no acute distress. Head/Face: atraumatic. Eyes: EOMI, no conjunctival erythema appreciated ENT: Moist Mucus Membranes Neck: Trachea midline, Supple Chest/axilla: Normal chest wall appearance and motion. Cardiovascular: Regular rate and rhythm. No edema appreciated Respiratory: Normal respirations, no respiratory distress appreciated Abdomen/GI: Non distended, soft Back: Normal ROM Skin: General appearance color normal MS/ Extremity: Moves all extremities, no obvious deformities appreciated, no edema noted to the lower extremities Neuro: Awake and alert Psych: Behavior is normal, Mood is normal, Patient is cooperative and pleasant Vital Signs: 22:14 BP 155 / 105; Pulse 73; Resp 18 S; Temp 98.4(TE); Pulse Ox 99% on R/A; Weight 99.79 kg as6 (R); Height 5 ft. 4 in. (162.56 cm) (R); Pain 8/10; 03/07 00:03 BP 130 / 72; Pulse 72; Resp 17; Pulse Ox 100% on R/A; ll3 03/06 22:14 Body Mass Index 37.76 (99.79 kg, 162.56 cm) as6 MDM: 03/06 22:23 Patient medically screened. [facility] 03/06 22:16 Order name: CT Head Brain wo Cont [facility] 03/06 22:17 Order name: Saline Lock; Complete Time: 23:52 [facility] Administered Medications: 22:19 CANCELLED (Duplicate Order): Reglan (metoCLOPramide) 20 mg IVP once; over 15 mins [facility] 23:51 Drug: Decadron - Dexamethasone 10 mg Route: IVP; Site: right antecubital; [facility] 03/07 01:39 Follow up: Response: No adverse reaction [facility] 03/06 23:52 Drug: NS 0.9% 500 ml Route: IV; Rate: bolus; Site: right antecubital; [facility] 03/07 01:40 Follow up: Response: No adverse reaction; IV Status: Completed infusion; IV Intake: ll3 500ml 03/06 23:52 Drug: Reglan (metoCLOPramide) 20 mg {Note: administered via bolus.} Route: IVP; Site: [facility] right antecubital; 03/07 01:40 Follow up: Response: No adverse reaction; Marked relief of symptoms [facility] 03/06 23:52 Drug: diphenhydrAMINE 25 mg Route: IVP; Site: right antecubital; [facility] 03/07 01:40 Follow up: Response: No adverse reaction; Marked relief of symptoms [facility] Disposition: 09:39 Co-signature as Attending Physician, Fly MEDINA was immediately available on-site wy3 in the Emergency Department for consultation in the care of the patient. . Disposition Summary: 03/07/22 00:49 Discharge Ordered Location: Home ms3 Condition: Stable ms3 Diagnosis - Headache ms3 Followup: ms3 - With: Jameson Fernandez DO - When: 2 - 3 days - Reason: Recheck today's complaints Discharge Instructions: - Discharge Summary Sheet ms3 - General Headache Without Cause ms3 Forms: - Medication Reconciliation Form ms3 - Thank You Letter ms3 - Antibiotic Education ms3 - Prescription Opioid Use ms3 - Family Work Release ll3 Signatures: Dispatcher [employer] EDMS Gautam Tabares PA PA jmm Bryson, James RN RN jb4 Fly Basurto DO DO ms3 Devon Infante RN RN as6 Mimi Rahman RN ll3 Corrections: (The following items were deleted from the chart) 03/06 22:19 22:19 Reglan (metoCLOPramide) 20 mg IVP once; over 15 mins ordered. carmine lou
--- NOTE | 2022-03-07 00:50 | ER ---
Nurse's Notes [facility] Name: Kristina Christensen Age: 36 yrs Sex: Female : 1985 Arrival Date: 03/06/2022 Time: 21:43 Bed 16 Private MD: Diagnosis: Headache Presentation: 03/06 22:14 Chief complaint: Patient states: c/co headache behind right eye. Coronavirus screen: At as6 this time, the client does not indicate any symptoms associated with coronavirus-19. Ebola Screen: No symptoms or risks identified at this time. Initial Sepsis Screen: Does the patient meet any 2 criteria? No. Patient's initial sepsis screen is negative. Does the patient have a suspected source of infection? No. Patient's initial sepsis screen is negative. Risk Assessment: Do you want to hurt yourself or someone else? Patient reports no desire to harm self or others. Onset of symptoms was March 06, 2022 at 14:00. 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 - Social history:: Smoking status: Reported history of juuling and/or vaping. Patient denies any tobacco usage or history of. Screenin/06 00:03 Abuse screen: Denies threats or abuse. Nutritional screening: No deficits noted. ll3 Tuberculosis screening: No symptoms or risk factors identified. Fall Risk No fall in past 12 months (0 pts). Secondary diagnosis (15 points) seizures, TIA, IV access (20 points). Ambulatory Aid- None/Bed Rest/Nurse Assist (0 pts). Gait- Normal/Bed Rest/Wheelchair (0 pts) Mental Status- Oriented to own ability (0 pts). Total Tafoya Fall Scale indicates No Risk (0-24 pts). Assessment: 03/06 22:40 General: Appears uncomfortable, Behavior is calm, cooperative. Pain: Complains of pain ll3 in face Pain currently is 10 out of 10 on a pain scale. Quality of pain is described as throbbing, Pain began 2 PM Is continuous. Neuro: Level of Consciousness is awake, alert, obeys commands, Oriented to person, place, time, situation, Speech is normal, Facial symmetry appears normal, Reports headache Behind eyes. Respiratory: Respiratory effort is even, unlabored, Respiratory pattern is regular, symmetrical. 03/07 00:00 Reassessment: No changes from previously documented assessment. Patient and/or family ll3 updated on plan of care and expected duration. Pain level reassessed. Patient is alert, oriented x 3, equal unlabored respirations, skin warm/dry/pink. 01:40 Reassessment: Patient and/or family updated on plan of care and expected duration. Pain ll3 level reassessed. Patient is alert, oriented x 3, equal unlabored respirations, skin warm/dry/pink. Patient denies pain at this time. Patient states feeling better. Patient states symptoms have improved. Vital Signs: 03/06 22:14 BP 155 / 105; Pulse 73; Resp 18 S; Temp 98.4(TE); Pulse Ox 99% on R/A; Weight 99.79 kg as6 (R); Height 5 ft. 4 in. (162.56 cm) (R); Pain 8/10; 03/07 00:03 BP 130 / 72; Pulse 72; Resp 17; Pulse Ox 100% on R/A; ll3 03/06 22:14 Body Mass Index 37.76 (99.79 kg, 162.56 cm) as6 ED Course: 03/06 21:43 Patient arrived in ED. ja2 21:59 Fly Basurto DO is Attending Physician. ms3 22:15 Gautam Tabares PA is PHCP. jmm 22:16 Triage completed. as6 22:18 Arm band placed on. as6 22:43 Mimi Rahman, [employer] is Primary Nurse. ll3 23:06 CT Head Brain wo Cont In Process Unspecified. EDMS 23:52 Inserted saline lock: 18 gauge in left antecubital area, using aseptic technique. jb4 03/07 00:03 Patient has correct armband on for positive identification. Bed in low position. Call ll3 light in reach. Side rails up X 1. 00:49 Jameson Fernandez DO is Referral Physician. ms3 01:32 No provider procedures requiring assistance completed. ll3 01:39 IV discontinued, intact, bleeding controlled, No redness/swelling at site. Pressure ll3 dressing applied. Administered Medications: 03/06 22:19 CANCELLED (Duplicate Order): Reglan (metoCLOPramide) 20 mg IVP once; over 15 mins [facility] 23:51 Drug: Decadron - Dexamethasone 10 mg Route: IVP; Site: right antecubital; [facility] 03/07 01:39 Follow up: Response: No adverse reaction ll3 03/06 23:52 Drug: NS 0.9% 500 ml Route: IV; Rate: bolus; Site: right antecubital; [facility] 03/07 01:40 Follow up: Response: No adverse reaction; IV Status: Completed infusion; IV Intake: ll3 500ml 03/06 23:52 Drug: Reglan (metoCLOPramide) 20 mg {Note: administered via bolus.} Route: IVP; Site: [facility] right antecubital; 03/07 01:40 Follow up: Response: No adverse reaction; Marked relief of symptoms ll3 03/06 23:52 Drug: diphenhydrAMINE 25 mg Route: IVP; Site: right antecubital; [facility] 03/07 01:40 Follow up: Response: No adverse reaction; Marked relief of symptoms ll3 Medication: 01:32 VIS not applicable for this client. ll3 Intake: 01:40 IV: 500ml; Total: 500ml. ll3 Outcome: 00:49 Discharge ordered by . ms3 01:39 Discharged to home ambulatory, with significant other. ll3 01:39 Condition: stable 01:39 Discharge instructions given to patient, significant other, Instructed on discharge instructions, follow up and referral plans. Demonstrated understanding of instructions, follow-up care. 01:40 Patient left the ED. ll3 Signatures: Dispatcher [employer] EDMS Gautam Tabares PA PA jmm Bryson, James RN RN jb4 Fly Basurto DO DO ms3 Shannan Rico2 Devon Inafnte RN RN as6 Loubet, Lynsea, RN RN ll3
[2022-03-07 01:59] VITALS: TEMP 98.4
[2022-03-07 02:00] VITALS: BP 130/72; O2SAT 100
--- NOTE | 2022-03-08 12:48 | RAD REPORT ---
EXAM DESCRIPTION: Head Brain Wo Cont CLINICAL HISTORY: 36 years Female Headache, cluster/trigeminal COMPARISON: None TECHNIQUE: Images were obtained in axial, sagittal, and coronal planes. This exam was performed according to our departmental dose-optimization program which includes use of Automated Exposure Control, adjustment of the mA and/or kV according to patient size and/or use of iterative reconstruction technique. FINDINGS: Ventricular system appears normal. No abnormal areas of increased attenuation seen. No extra-axial fluid collections noted. No evidence for skull fracture. Symmetric aeration mastoid air cells bilaterally. Unremarkable parana og sinuses. IMPRESSION: No acute intracranial abnormality. No evidence for hemorrhage, mass lesion, or large acu te infarction. Electronically signed by: Licha Fontanez MD 03/06/2022 11:20 PM CDT Due to temporary technical issues with the PACS/Fluency reporting system, reports are being signed by the in house radiologists without review as a courtesy to insure prompt reporting. The interpreting radiologist is fully responsible for the content of the report.
== END 2022-03-07 01:40 | disposition home or self-care (01) ==
LOC: ER 21:42
DX: R51.9 Headache, unspecified (principal); I10 Essential (primary) hypertension; Z85.41 Personal history of malignant neoplasm of cervix uteri; Z88.5 Allergy status to narcotic agent
CPT/HCPCS: 96361; 70450; 96375; 96374; 99283; J2765; J1200; J1100; J7040

== ENCOUNTER 2022-06-01 16:53 | Emergency (ER) | payer OTHER ==
--- OUTSIDE RECORDS SUMMARY | 2022-06-01 17:01 | XMS REPORT | Continuity of Care Document ---
:1985 Author Organization [facility] t Address [address] [place] [address] Care Team Providers Name Role Phone MARVIN Foley [facility] Primary Care P hysician Unavailable Jose Harris Attending Clinician Unavailable KARLEE GOMEZ Attending Clinician Unavailable Karlee Gomez DO Attending Clinician Doctor Unassigned, Dushore Attending Clinician Unavailable Nohemi Phillip Attending Clinician Mony Ortega RN Attending Clinician Unavailable TASHA DE OLIVEIRA Attending Clinician Unavailable KILEY STROUD Attending Clinician Unavailable KEYSHA VIVEROS Attending Clinician Unavailable Tasha De Oliveira MD Attending Clinician Riri Cerda Attending Clinician Sam Dodson Attending Clinician Leopoldo CORNEJO Fredrick Rgan Attending Clinician Joaquín Kim MD Attending Clinician JOAQUÍN KIM Attending Clinician Unavailable MAIA SHRESTHA Attending Clinician Unavailable Maia Sullivan Attending Clinician KNOW, DOES_NOT Admitting Clinician Unavailable Physician, No Primary or Family Admitting Clinician Unavaila ble Payers Payer Name Policy Type Policy Number Effective Date Expiration Date Chapis CHIRINOSS [id number] 2020 HEALTH 00:00:00 MEDICAID [facility] [id number] 2019 00:00:00 MEDICAID [place] PENDING 2019 PENDING [...] Morbid Morbid Disease Active Univers obesity obesity 06-03 [place] body [place] index 00 Me dical of of Branch 40.0-49.9 40.0-49.9 Morbid Morbid Disease Active Univers obesity obesity 9- [place] of with body [place] body 00:[place] mass index mass index 00 Me dical of of Branch 40.0-49.9 40.0-49.9 Cyst of Cyst of Disease Active Univers right right 02-01 ity of ovary ovary 00:00: [place] 00 Medical Branch History of History of Disease Active U nivers cervical cervical 02-01 ity of cancer cancer 00:00: [place] 00 Medical Branch 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 - ity of current current 00:00: [place] episode of episode of 00 Me dical major major Branch depressive depressive disorder disorder Normal Normal Disease Active Univers delivery delivery 03-04 ity of 00:00: [place] 00 Medical Branch Allergies, Adverse Reactions, Alerts Allergy Allergy Status Severity Reaction(s) Onset Inactive Treating Comm ents Source Name Type Date Date Clinician tramadol DA Active U [facility] [place] [facility] d [facility] tramadol DA Active U RASH,HIVES [facility] [place] [facility]: d [facility] No Known DA Active U 2017-10 [facility] Allergie 2-15 [place] s 00:00: d 00 [facility] Tramadol Propensi Active Hives 2016-10 Univer s ty to 0-09 ity of adverse 00:00: [place] reaction 00 Medical s Branch TRAMADOL DRUG Active Hives 2016-10 Univers INGREDI 0-09 ity of 00:00: [place] 00 Medical Branch Social History Social Habit Start Date Stop Date Quantity Comments Source History SDOH University o f Alcohol Frequency [place] M edical Branch History SDOH University o f Alcohol Std [place] [facility] Drinks Branch History SDOH University o f Alcohol Binge [place] Medic al Branch Exposure to Not sure University of SARS-CoV-2 [facility] (event) Branch Alcohol intake 2021-10-31 2021-10-31 Current drinker Unive rsity of 00:00:00 00:00:00 of alcohol [place] [facility] (finding) Branch Tobacco use and 2021-01-27 2021-01-27 Never used Universit y of exposure 00:00:00 00:00:00 [facility] Alcohol Comment 2018-01-31 2018-01-31 social Universit y of 00:00:00 00:00:00 [facility] Sex [birth year] Universit y of 00:00:00 00:00:00 [place] [facility] Smoking Status Start Date Stop Date Source Former smoker 2021-01-27 00:00:00 2021-01-27 00:00:00 [facility] Never smoker University [facility] xa Medical Branch Medications Ordered Filled Start [...] 10/31/21 at 1345, OSVALDO amoxicillin 2021- No [id number] 875mg Take 1 Univers 875 mg 10-31 tablet by ity of tablet 00:00: 05:59 mouth 2 [place] 00 :00 (two) Medical times [place] daily for 10 days. iopamidol 2020- No [id number] 100mL 100 mL, Univers (ISOVUE 06-19 Intravenou ity o f 370-500 mL) 00:00: 00:00 s, ONCE, 1 [place] injection 00 :00 dose, On Medica l 100 mL Fri Branch 06/18/21 at 1900, Routine iopamidol 2020- No [id number] 100mL 100 mL, Univers (ISOVUE 06-19 Intravenou [...] On Branch Mon06/18/21 at 1745, STAT ondansetron 2020- No 4mg 4 mg, [...] On Branch Mon06/18/21 at 1700, STAT ondansetron Yes [id number] 4mg Take 1 Univers (ZOFRAN 9-17 tablet [...] Indication s: acute pain ondansetron 2020-0 Yes [id number] 4mg Take 1 Univers (ZOFRAN 9-17 tablet [...] Indication s: acute pain ondansetron 0 Yes [id number] 4mg Take 1 Univers (ZOFRAN 9-17 tablet [...] Indication s: acute pain ondansetron 0 Yes [id number] 4mg Take 1 Univers (ZOFRAN 9-17 tablet [...] (scale 7-10). 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 Branch miSOPROStoL Yes [id number] 200ug Take 1 Univers 200 mcg 6-09 tablet by ity of tablet 00:00: mouth [place] 00 SEE-INSTRU Medical CTIONS. Branch miSOPROStoL Yes [id number] 200ug Take 1 Univers 200 mcg 6-09 tablet by ity of tablet 00:00: mouth [place] 00 SEE-INSTRU Medical CTIONS. Branch miSOPROStoL 2020- No [id number] 200ug Take 1 Univers 200 mcg 6-09 -28 tablet by ity of tablet 00:00: 00:00 mouth [place] 00 :00 SEE-INSTRU Medical CTIONS. Branch miSOPROStoL 2020- No [id number] 200ug Take 1 Univers 200 mcg 6-09 06-28 tablet by ity of tablet 00:00: 00:00 mouth [place] 00 :00 SEE-INSTRU Medical CTIONS. Branch ketorolac 2020- No 30mg 30 mg, Unive rs (TORADOL) 02-22 Slow IV ity of injection 07:30: 06:33 Push, [place] 30 mg 00 :00 ONCE, 1 Medical dose, [facility] 02/22/21 at 0230, OSVALDO
[facility] approving Restricted medication : Riri ISAACS RONI KCL No 20meq 20 mEq, IV Unive rs (POTASSIUM 02-22 Piggyback, it y of CHLORIDE) 06:30: 05:53 ONCE, 1 [place] 20 mEq in 00 :00 dose, Mon Medic al NaCl 0.9% 02/22/21 at [facility] ch (NS) 100 mL 0130, 100 piggyback mL KCL No 40meq 40 mEq, Univers (KLOR-CON 02-22 Oral, ity of M20) tablet 06:30: 05:45 ONCE, 1 [place] 40 mEq 00 :00 dose, Mon Medical 02/22/21 at [place] 0130, Routine acetaminoph No 1000mg 1,000 mg, Univers en 02-22 Oral, ity of (TYLENOL) 05:00: 04:02 ONCE, 1 [place] tablet 00 :00 dose, [facility] Medical 1,000 mg 02/22/21 at [facility] h 0000, OSVALDO ondansetron 2020- No 4mg 4 mg, Slow Univers (ZOFRAN 02-22 IV Push, ity of (PF)) 05:00: 04:16 ONCE, 1 [place] injection 4 00 :00 dose, Mon Med ical mg 02/22/21 at Branch 0000, OSVALDO NaCl 0.9% 2020- No 1000mL at 999 Uni vers (NS) bolus 02-22 mL/hr, ity of infusion 05:00: 10:28 1,000 mL, Matt as 1,000 mL 00 :00 IV Medical Infusion, [place] ONCE, 1 dose, 02/22/21 at 0000, STAT iopamidol 2020- No [id number] 120mL 120 mL, Univers (ISOVUE 02-22 Intravenou ity o f 370-500 mL) 04:08: 04:11 s, ONCE, 1 [place] injection 00 :00 dose, Sun Medic al 120 mL 02/21/21 at Branch 2315, Routine polyethylen 2020- No [id number] 17g Take 17 g Univers e glycol 5-24 05-29 by mouth ity of 3350 00:00: 04:59 daily for [place] (MIRALAX) 00 :00 4 days. Medical 17 [place] gram/dose powder polyethylen 2020- No [id number] 17g Take 17 g Univers e glycol 5-24 05-29 by mouth ity of 3350 00:00: 04:59 daily for [place] (MIRALAX) 00 :00 4 days. Medical 17 [place] gram/dose powder polyethylen 2020- No [id number] 17g Take 17 g Univers e glycol 5-24 05-29 by mouth ity of 3350 00:00: 04:59 daily for [place] (MIRALAX) 00 :00 4 days. Medical 17 [place] gram/dose powder polyethylen 2020- No [id number] 17g Take 17 g Univers e glycol 5-24 05-29 by mouth ity of 3350 00:00: 04:59 daily for [place] (MIRALAX) 00 :00 4 days. Medical 17 [place] gram/dose powder miSOPROStoL Yes [id number] 200ug Take 1 Univers 200 mcg 4-28 tablet by ity of tablet 00:00: mouth 00 SEE-INSTRU Medical CTIONS. Branch Take one tab the night before and one tab the morning of procedure miSOPROStoL 2020- Yes [id number] 200ug Take 1 Univers 200 mcg 4-28 tablet by ity of tablet 00:00: mouth [place] 00 SEE-INSTRU Medical CTIONS. Branch Take one tab the night before and one tab the morning of procedure miSOPROStoL 2020-0 Yes [id number] 200ug Take 1 Univers 200 mcg 4-28 tablet by ity of tablet 00:00: mouth 00 SEE-INSTRU Medical CTIONS. Branch Take one tab the night before and one tab the morning of procedure miSOPROStoL 2020-2020- No [id number] 200ug Take 1 Univers 200 mcg 4-28 05-26 tablet by ity of tablet 00:00: 00:00 mouth [place] 00 :00 SEE-INSTRU Medical CTIONS. Branch Take one tab the night before and one tab the morning of procedure miSOPROStoL 2020- No [id number] 200ug Take 1 Univers 200 mcg 4-28 05-26 tablet by ity of tablet 00:00: 00:00 mouth [place] 00 :00 SEE-INSTRU Medical CTIONS. Branch Take one tab the night before and one tab the morning of procedure miSOPROStoL 2020- No [id number] 200ug Take 1 Univers 200 mcg 4-28 05-26 tablet by ity of tablet 00:00: 00:00 mouth [place] 00 :00 SEE-INSTRU Medical CTIONS. Branch Take one tab the night before and one tab the morning of procedure ketorolac 2020- No 15mg 15 mg, Unive rs (TORADOL) 01-19- Slow IV ity of injection 23:15: 22:18 Push, [place] 15 mg 00 :00 ONCE, 1 Medical dose, Tue [place] 01/19/21 at 1815, OSVALDO
Fa culty member approving Restricted medication : SAM EVANS ondansetron 2020- No 4mg 4 mg, Slow Univers (ZOFRAN 01-19- IV Push, ity of (PF)) 21:30: 21:29 ONCE, 1 [place] injection 4 00 :00 dose, Tue Med ical mg 01/19/21 at Branch 1630, OSVALDO iohexol 2020- No [id number] 120mL 120 mL, U nivers (OMNIPAQUE 01-19 Intravenou it y of 350 21:15: 21:15 s, ONCE, 1 [place] BULK-150 00 :00 dose, Tue Medica l mL) 01/19/21 at [place] injection 1615, 120 mL Routine ibuprofen Yes [id number] 800mg Take 1 U nivers 800 mg 4-20 tablet by ity of tablet 00:00: mouth [place] 00 every 8 Medical (eight) Branch hours as needed for Pain (scale 4-6). Take with food ibuprofen Yes [id number] 800mg Take 1 U nivers 800 mg 4-20 tablet by ity of tablet 00:00: mouth [place] 00 every 8 Medical (eight) Branch hours as needed for Pain (scale 4-6). Take with food ibuprofen 2021-0 Yes [id number] 800mg Take 1 U nivers 800 mg 4-20 tablet by ity of tablet 00:00: mouth [place] 00 every 8 Medical (eight) Branch hours as needed for Pain (scale 4-6). Take with food ibuprofen 2021-0 Yes [id number] 800mg Take 1 U nivers 800 mg 4-20 tablet by ity of tablet 00:00: mouth [place] 00 every 8 Medical (eight) Branch hours as needed for Pain (scale 4-6). Take with food ibuprofen 2021-0 Yes [id number] 800mg Take 1 U nivers 800 mg 4-20 tablet by ity of tablet 00:00: mouth [place] 00 every 8 Medical (eight) Branch hours as needed for Pain (scale 4-6). Take with food ibuprofen 2021-0 Yes [id number] 800mg Take 1 U nivers 800 mg 4-20 tablet by ity of tablet 00:00: mouth [place] 00 every 8 Medical (eight) Branch hours as needed for Pain (scale 4-6). Take with food ibuprofen 2021-0 Yes [id number] 800mg Take 1 U nivers 800 mg 4-20 tablet by ity of tablet 00:00: mouth [place] 00 every 8 Medical (eight) Branch hours as needed for Pain (scale 4-6). Take with food ibuprofen 2021-0 Yes [id number] 800mg Take 1 U nivers 800 mg 4-20 tablet by ity of tablet 00:00: mouth [place] 00 every 8 Medical (eight) Branch hours as needed for Pain (scale 4-6). Take with food ibuprofen 2021-0 Yes [id number] 800mg Take 1 U nivers 800 mg 4-20 tablet by ity of tablet 00:00: mouth [place] 00 every 8 Medical (eight) Branch hours as needed for Pain (scale 4-6). Take with food ibuprofen 2021-0 Yes [id number] 800mg Take 1 U nivers 800 mg 4-20 tablet by ity of tablet 00:00: mouth [place] 00 every 8 Medical (eight) Branch hours as needed for Pain (scale 4-6). Take with food ibuprofen 2021-0 Yes [id number] 800mg Take 1 U nivers 800 mg 4-20 tablet by ity of tablet 00:00: mouth [place] 00 every 8 Medical (eight) Branch hours as needed for Pain (scale 4-6). Take with food ibuprofen 2021-0 Yes [id number] 800mg Take 1 U nivers 800 mg 4-20 tablet by ity of tablet 00:00: mouth [place] 00 every 8 Medical (eight) Branch hours as needed for Pain (scale 4-6). Take with food ibuprofen 2021-0 Yes [id number] 800mg Take 1 U nivers 800 mg 4-20 tablet by ity of tablet 00:00: mouth [place] 00 every 8 Medical (eight) Branch hours as needed for Pain (scale 4-6). Take with food ibuprofen 2021-0 Yes [id number] 800mg Take 1 U nivers 800 mg 4-20 tablet by ity of tablet 00:00: mouth [place] 00 every 8 Medical (eight) Branch hours as needed for Pain (scale 4-6). Take with food ibuprofen 2021-0 Yes [id number] 800mg Take 1 U nivers 800 mg 4-20 tablet by ity of tablet 00:00: mouth [place] 00 every 8 Medical (eight) Branch hours as needed for Pain (scale 4-6). Take with food ibuprofen 2021-0 Yes [id number] 800mg Take 1 U nivers 800 mg 4-20 tablet by ity of tablet 00:00: mouth [place] 00 every 8 Medical (eight) Branch hours as needed for Pain (scale 4-6). Take with food ibuprofen 2021-0 Yes [id number] 800mg Take 1 U nivers 800 mg 4-20 tablet by ity of tablet 00:00: mouth [place] 00 every 8 Medical (eight) Branch hours as needed for Pain (scale 4-6). Take with food ibuprofen 2021-0 Yes [id number] 800mg Take 1 U nivers 800 mg 4-20 tablet by ity of tablet 00:00: mouth [place] 00 every 8 Medical (eight) Branch hours as needed for Pain (scale 4-6). Take with food ibuprofen 2021-0 Yes [id number] 800mg Take 1 U nivers 800 mg 4-20 tablet by ity of tablet 00:00: mouth [place] 00 every 8 Medical (eight) Branch hours as needed for Pain (scale 4-6). Take with food ibuprofen 2021-0 Yes [id number] 800mg Take 1 U nivers 800 mg 4-20 tablet by ity of tablet 00:00: mouth [place] 00 every 8 Medical (eight) Branch hours as needed for Pain (scale 4-6). Take with food ibuprofen 2020-0 Yes [id number] 800mg Take 1 U nivers 800 mg 4-20 tablet by ity of tablet 00:00: mouth [place] 00 every 8 Medical (eight) Branch hours as needed for Pain (scale 4-6). Take with food ibuprofen 2020-0 Yes [id number] 800mg Take 1 U nivers 800 mg 4-20 tablet by ity of tablet 00:00: mouth [place] 00 every 8 Medical (eight) Branch hours as needed for Pain (scale 4-6). Take with food ibuprofen 2020-0 Yes [id number] 800mg Take 1 U nivers 800 mg 4-20 tablet by ity of tablet 00:00: mouth [place] 00 every 8 Medical (eight) Branch hours as needed for Pain (scale 4-6). Take with food ibuprofen 2020-0 Yes [id number] 800mg Take 1 U nivers 800 mg 4-20 tablet by ity of tablet 00:00: mouth [place] 00 every 8 Medical (eight) Branch hours as needed for Pain (scale 4-6). Take with food ibuprofen 2020-0 Yes [id number] 800mg Take 1 U nivers 800 mg 4-20 tablet by ity of tablet 00:00: mouth [place] 00 every 8 Medical (eight) Branch hours as needed for Pain (scale 4-6). Take with food acetaminoph 2020- No [id number] 1{tbl} Take 1 U nivers en-codeine 4-20 04-28 tablet by ity of 300-30 mg 00:00: 04:59 mouth [place] tablet 00 :00 every 6 Medical (six) Branch hours as needed for Pain (scale 7-10) for up to 7 days. Indication s: acute pain cephALEXin 2021-0 Yes 500mg Take 500 Un dani 500 mg 4-14 mg by ity of capsule 00:00: mouth (two) Medical times Branch daily. cephALEXin 2021-0 Yes 500mg Take 500 Un dani 500 mg 4-14 mg by ity of capsule 00:00: mouth (two) Medical times Branch daily. cephALEXin 2021-0 Yes 500mg Take 500 Un dani 500 mg 4-14 mg by ity of capsule 00:00: mouth (two) Medical times Branch daily. cephALEXin 2021-0 2021- No 500mg Take 500 U nivers 500 mg 4-14 05-26 mg by ity of capsule 00:00: 00:00 mouth 2 [place] 00 :00 (two) Medical times Branch daily. cephALEXin 2021-0 2021- No 500mg Take 500 U nivers 500 mg 4-14 05-26 mg by ity of capsule 00:00: 00:00 mouth 2 [place] 00 :00 (two) Medical times Branch daily. cephALEXin 2021-0 2021- No 500mg Take 500 U nivers 500 mg 4-14 05-26 mg by ity of capsule 00:00: 00:00 mouth 2 [place] 00 :00 (two) Medical times Branch daily. diclofenac 2020-0 Yes 75mg Take 1 Unive rs 75 mg EC 3-26 tablet by ity of tablet 00:00: mouth [place] ([facility]) Medical times Branch daily with meals. diclofenac 2020-0 Yes 75mg Take 1 Unive rs 75 mg EC 3-26 tablet by ity of tablet 00:00: mouth [place] (two) Medical times Branch daily with meals. diclofenac 2020-0 Yes 75mg Take 1 Unive rs 75 mg EC 3-26 tablet by ity of tablet 00:00: mouth [place] (two) Medical times Branch daily with meals. diclofenac 2020-0 Yes 75mg Take 1 Unive rs 75 mg EC 3-26 tablet by ity of tablet 00:00: mouth [place] (two) Medical times Branch daily with meals. diclofenac 2020-0 Yes 75mg Take 1 Unive rs 75 mg EC 3-26 tablet by ity of tablet 00:00: mouth [place] (two) Medical times Branch daily with meals. diclofenac 2020-0 Yes 75mg Take 1 Unive rs 75 mg EC 3-26 tablet by ity of tablet 00:00: mouth [place] (two) Medical times Branch daily with meals. diclofenac 2020-0 Yes 75mg Take 1 Unive rs 75 mg EC 3-26 tablet by ity of tablet 00:00: mouth [place] (two) Medical times Branch daily with meals. [...] times Branch daily with meals. diclofenac 2020-0 2021- No 75mg Take 1 Univ ers 75 mg EC 3-26 04-28 tablet by ity o f tablet 00:00: 00:00 mouth 2 00 :00 (two) Medical times Branch daily with meals. diclofenac 2020-0 2021- No 75mg Take 1 Univ ers 75 mg EC 3-26 04-28 tablet by ity o f tablet 00:00: 00:00 mouth 2 00 :00 (two) Medical times Branch daily with meals. cloNIDine 2019-0 Yes [id number] .1mg Take 1 Un dani 0.1 mg 7-24 tablet by ity of tablet 00:00: mouth (two) Medical times Branch daily. cloNIDine 2019-0 Yes [id number] .1mg Take 1 Un dani 0.1 mg 7-24 tablet by ity of tablet 00:00: mouth (two) Medical times Branch daily. cloNIDine 2019-0 Yes [id number] .1mg Take 1 Un dani 0.1 mg 7-24 tablet by ity of tablet 00:00: mouth (two) Medical times Branch daily. cloNIDine 2019-0 Yes [id number] .1mg Take 1 Un dani 0.1 mg 7-24 tablet by ity of tablet 00:00: mouth (two) Medical times Branch daily. cloNIDine 2019-0 Yes [id number] .1mg Take 1 Un dani 0.1 mg 7-24 tablet by ity of tablet 00:00: mouth (two) Medical times Branch daily. cloNIDine 2019-0 Yes [id number] .1mg Take 1 Un dani 0.1 mg 7-24 tablet by ity of tablet 00:00: mouth 2 (two) Medical times Branch daily. cloNIDine 2019-0 Yes [id number] .1mg Take 1 Un dani 0.1 mg 7-24 tablet by ity of tablet 00:00: mouth (two) Medical times Branch daily. cloNIDine 2019-0 Yes [id number] .1mg Take 1 Un dani 0.1 mg 7-24 tablet by ity of tablet 00:00: mouth (two) Medical times Branch daily. cloNIDine 2019-0 Yes [id number] .1mg Take 1 Un dani 0.1 mg 7-24 tablet by ity of tablet 00:00: mouth (two) Medical times Branch daily. cloNIDine 2019-0 Yes [id number] .1mg Take 1 Un dani 0.1 mg 7-24 tablet by ity of tablet 00:00: mouth (two) Medical times Branch daily. cloNIDine 2019-0 Yes [id number] .1mg Take 1 Un dani 0.1 mg 7-24 tablet by ity of tablet 00:00: mouth (two) Medical times Branch daily. cloNIDine 2019-0 Yes [id number] .1mg Take 1 Un dani 0.1 mg 7-24 tablet by ity of tablet 00:00: mouth (two) Medical times Branch daily. cloNIDine 2019-0 Yes [id number] .1mg Take 1 Un dani 0.1 mg 7-24 tablet by ity of tablet 00:00: mouth (two) Medical times Branch daily. cloNIDine 2019-0 Yes [id number] .1mg Take 1 Un dani 0.1 mg 7-24 tablet by ity of tablet 00:00: mouth (two) Medical times Branch daily. cloNIDine 2019-0 Yes [id number] .1mg Take 1 Un dani 0.1 mg 7-24 tablet by ity of tablet 00:00: mouth (two) Medical times Branch daily. cloNIDine 2019-0 Yes [id number] .1mg Take 1 Un dani 0.1 mg 7-24 tablet by ity of tablet 00:00: mouth (two) Medical times Branch daily. cloNIDine 2019-0 Yes [id number] .1mg Take 1 Un dani 0.1 mg 7-24 tablet by ity of tablet 00:00: mouth 2 (two) Medical times Branch daily. cloNIDine 2019-0 Yes [id number] .1mg Take 1 Un dani 0.1 mg 7-24 tablet by ity of tablet 00:00: mouth 2 (two) Medical times Branch daily. cloNIDine 2019-0 Yes [id number] .1mg Take 1 Un dani 0.1 mg 7-24 tablet by ity of tablet 00:00: mouth 2 (two) Medical times Branch daily. cloNIDine 2019-0 Yes [id number] .1mg Take 1 Un dani 0.1 mg 7-24 tablet by ity of tablet 00:00: mouth (two) Medical times Branch daily. cloNIDine 2019-0 Yes [id number] .1mg Take 1 Un dani 0.1 mg 7-24 tablet by ity of tablet 00:00: mouth 2 (two) Medical times Branch daily. cloNIDine 2019-0 Yes [id number] .1mg Take 1 Un dani 0.1 mg 7-24 tablet by ity of tablet 00:00: mouth (two) Medical times Branch daily. cloNIDine 2019-0 Yes [id number] .1mg Take 1 Un dani 0.1 mg 7-24 tablet by ity of tablet 00:00: mouth (two) Medical times Branch daily. cloNIDine 2019-0 Yes [id number] .1mg Take 1 Un dani 0.1 mg 7-24 tablet by ity of tablet 00:00: mouth (two) Medical times Branch daily. cloNIDine 2019-0 Yes [id number] .1mg Take 1 Un dani 0.1 mg 7-24 tablet by ity of tablet 00:00: mouth (two) Medical times Branch daily. cloNIDine 2019-0 Yes [id number] .1mg Take 1 Un dnai 0.1 mg 7-24 tablet by ity of tablet 00:00: mouth (two) Medical times Branch daily. cloNIDine 2019-0 Yes [id number] .1mg Take 1 Un dani 0.1 mg 7-24 tablet by ity of tablet 00:00: mouth 2 (two) Medical times Branch daily. cloNIDine 2019-0 Yes [id number] .1mg Take 1 Un dani 0.1 mg 7-24 tablet by ity of tablet 00:00: mouth 2 (two) Medical times Branch daily. cloNIDine 2019-0 Yes [id number] .1mg Take 1 Un dani 0.1 mg 7-24 tablet by ity of tablet 00:00: mouth (two) Medical times Branch daily. cloNIDine 2019-0 Yes [id number] .1mg Take 1 Un dani 0.1 mg 7-24 tablet by ity of tablet 00:00: mouth (two) Medical times Branch daily. cloNIDine 2019-0 Yes [id number] .1mg Take 1 Un dani 0.1 mg 7-24 tablet by ity of tablet 00:00: mouth (two) Medical times Branch daily. cloNIDine 2019-0 Yes [id number] .1mg Take 1 Un dani 0.1 mg 7-24 tablet by ity of tablet 00:00: mouth (two) Medical times Branch daily. cloNIDine 2019-0 Yes [id number] .1mg Take 1 Un dani 0.1 mg 7-24 tablet by ity of tablet 00:00: mouth (two) Medical times Branch daily. cloNIDine 2019-0 Yes [id number] .1mg Take 1 Un dani 0.1 mg 7-24 tablet by ity of tablet 00:00: mouth (two) Medical times Branch daily. cloNIDine 2019-0 Yes [id number] .1mg Take 1 Un dani 0.1 mg 7-24 tablet by ity of tablet 00:00: mouth (two) Medical times Branch daily. cloNIDine 2019-0 Yes [id number] .1mg Take 1 Un dani 0.1 mg 7-24 tablet by ity of tablet 00:00: mouth (two) Medical times Branch daily. cloNIDine 2019-0 Yes [id number] .1mg Take 1 Un dani 0.1 mg 7-24 tablet by ity of tablet 00:00: mouth (two) Medical times Branch daily. cloNIDine 2019-0 Yes [id number] .1mg Take 1 Un dani 0.1 mg 7-24 tablet by ity of tablet 00:00: mouth (two) Medical times Branch daily. cloNIDine 2019-0 Yes [id number] .1mg Take 1 Un dani 0.1 mg 7-24 tablet by ity of tablet 00:00: mouth 2 (two) Medical times Branch daily. acetaminoph 2019-0 Yes [id number] 1{tbl} Take 1 Univers en-codeine 1-16 tablet by ity of (TYLENOL-CO 00:00: mouth [place] DEINE #3) 00 every 4 Medical 300-30 mg (four) Branch tablet hours as needed for Pain (scale 7-10). amoxicillin 2018-0 Yes [id number] 500mg Take 1 Univers 500 mg 1-16 capsule by ity of capsule 00:00: mouth 3 [place] 00 (three) Medical times Branch daily. acetaminoph Yes [id number] 1{tbl} Take 1 Univers en-codeine 1-16 tablet by ity of (TYLENOL-CO 00:00: mouth [place] DEINE #3) 00 every 4 Medical 300-30 mg (four) Branch tablet hours as needed for Pain (scale 7-10). amoxicillin Yes [id number] 500mg Take 1 Univers 500 mg 1-16 capsule by ity of capsule 00:00: mouth 3 [place] 00 (three) Medical times Branch daily. acetaminoph Yes [id number] 1{tbl} Take 1 [facility] en-codeine 1-16 tablet by ity of (TYLENOL-CO 00:00: mouth [place] DEINE #3) 00 every 4 Medical 300-30 mg (four) Branch tablet hours as needed for Pain (scale 7-10). amoxicillin Yes [id number] 500mg Take 1 [facility] 500 mg 1-16 capsule by ity of capsule 00:00: mouth 3 [place] 00 (three) Medical times Branch daily. acetaminoph 0 Yes [id number] 1{tbl} Take 1 [facility] en-codeine 1-16 tablet by ity of (TYLENOL-CO 00:00: mouth [place] DEINE #3) 00 every 4 Medical 300-30 mg (four) Branch tablet hours as needed for Pain (scale 7-10). amoxicillin Yes [id number] 500mg Take 1 [facility] 500 mg 1-16 capsule by ity of capsule 00:00: mouth 3 [place] 00 (three) Medical times Branch daily. acetaminoph 0 Yes [id number] 1{tbl} Take 1 [facility] en-codeine 1-16 tablet by ity of (TYLENOL-CO 00:00: mouth [place] DEINE #3) 00 every 4 Medical 300-30 mg (four) Branch tablet hours as needed for Pain (scale 7-10). amoxicillin 2019-0 Yes [id number] 500mg Take 1 [facility] 500 mg 1-16 capsule by ity of capsule 00:00: mouth 3 [place] 00 (three) Medical times Branch daily. acetaminoph 2019-0 Yes [id number] 1{tbl} Take 1 [facility] en-codeine 1-16 tablet by ity of (TYLENOL-CO 00:00: mouth [place] DEINE #3) 00 every 4 Medical 300-30 mg (four) Branch tablet hours as needed for Pain (scale 7-10). amoxicillin 2018-0 Yes [id number] 500mg Take 1 [facility] 500 mg 1-16 capsule by ity of capsule 00:00: mouth 3 [place] 00 (three) Medical times Branch daily. acetaminoph 0 Yes [id number] 1{tbl} Take 1 [facility] en-codeine 1-16 tablet by ity of (TYLENOL-CO 00:00: mouth [place] DEINE #3) 00 every 4 Medical 300-30 mg (four) Branch tablet hours as needed for Pain (scale 7-10). amoxicillin 0 Yes [id number] 500mg Take 1 [facility] 500 mg 1-16 capsule by ity of capsule 00:00: mouth 3 [place] 00 (three) Medical times Branch daily. acetaminoph 0 Yes [id number] 1{tbl} Take 1 [facility] en-codeine 1-16 tablet by ity of (TYLENOL-CO 00:00: mouth [place] DEINE #3) 00 every 4 Medical 300-30 mg (four) Branch tablet hours as needed for Pain (scale 7-10). amoxicillin 0 Yes [id number] 500mg Take 1 [facility] 500 mg 1-16 capsule by ity of capsule 00:00: mouth 3 [place] 00 (three) Medical times Branch daily. acetaminoph 20190 Yes [id number] 1{tbl} Take 1 [facility] en-codeine 1-16 tablet by ity of (TYLENOL-CO 00:00: mouth [place] DEINE #3) 00 every 4 Medical 300-30 mg (four) Branch tablet hours as needed for Pain (scale 7-10). amoxicillin 2018-0 Yes [id number] 500mg Take 1 [facility] 500 mg 1-16 capsule by ity of capsule 00:00: mouth 3 [place] 00 (three) Medical times Branch daily. acetaminoph 2019-0 Yes [id number] 1{tbl} Take 1 [facility] en-codeine 1-16 tablet by ity of (TYLENOL-CO 00:00: mouth [place] DEINE #3) 00 every 4 Medical 300-30 mg (four) Branch tablet hours as needed for Pain (scale 7-10). amoxicillin Yes [id number] 500mg Take 1 [facility] 500 mg 1-16 capsule by ity of capsule 00:00: mouth 3 [place] 00 (three) Medical times Branch daily. acetaminoph Yes [id number] 1{tbl} Take 1 [facility] en-codeine 1-16 tablet by ity of (TYLENOL-CO 00:00: mouth [place] DEINE #3) 00 every 4 Medical 300-30 mg (four) Branch tablet hours as needed for Pain (scale 7-10). amoxicillin Yes [id number] 500mg Take 1 [facility] 500 mg 1-16 capsule by ity of capsule 00:00: mouth 3 [place] 00 (three) Medical times Branch daily. acetaminoph Yes [id number] 1{tbl} Take 1 [facility] en-codeine 1-16 tablet by ity of (TYLENOL-CO 00:00: mouth [place] DEINE #3) 00 every 4 Medical 300-30 mg (four) Branch tablet hours as needed for Pain (scale 7-10). amoxicillin Yes [id number] 500mg Take 1 [facility] 500 mg 1-16 capsule by ity of capsule 00:00: mouth 3 [place] 00 (three) Medical times Branch daily. acetaminoph Yes [id number] 1{tbl} Take 1 [facility] en-codeine 1-16 tablet by ity of (TYLENOL-CO 00:00: mouth [place] DEINE #3) 00 every 4 Medical 300-30 mg (four) Branch tablet hours as needed for Pain (scale 7-10). amoxicillin Yes [id number] 500mg Take 1 [facility] 500 mg 1-16 capsule by ity of capsule 00:00: mouth 3 [place] 00 (three) Medical times Branch daily. acetaminoph Yes [id number] 1{tbl} Take 1 [facility] en-codeine 1-16 tablet by ity of (TYLENOL-CO 00:00: mouth [place] DEINE #3) 00 every 4 Medical 300-30 mg (four) Branch tablet hours as needed for Pain (scale 7-10). amoxicillin Yes [id number] 500mg Take 1 [facility] 500 mg 1-16 capsule by ity of capsule 00:00: mouth 3 [place] 00 (three) Medical times Branch daily. acetaminoph Yes [id number] 1{tbl} Take 1 [facility] en-codeine 1-16 tablet by ity of (TYLENOL-CO 00:00: mouth [place] DEINE #3) 00 every 4 Medical 300-30 mg (four) Branch tablet hours as needed for Pain (scale 7-10). amoxicillin Yes [id number] 500mg Take 1 [facility] 500 mg 1-16 capsule by ity of capsule 00:00: mouth 3 [place] 00 (three) Medical times Branch daily. acetaminoph Yes [id number] 1{tbl} Take 1 [facility] en-codeine 1-16 tablet by ity of (TYLENOL-CO 00:00: mouth [place] DEINE #3) 00 every 4 Medical 300-30 mg (four) Branch tablet hours as needed for Pain (scale 7-10). amoxicillin Yes [id number] 500mg Take 1 [facility] 500 mg 1-16 capsule by ity of capsule 00:00: mouth 3 [place] 00 (three) Medical times Branch daily. acetaminoph 2020- No [id number] 1{tbl} Take 1 [facility] en-codeine 1-16 04-28 tablet by ity of (TYLENOL-CO 00:00: 00:[place] #3[place] 00 :00 every 4 Medical 300-30 mg (four) Branch tablet hours as needed for Pain (scale 7-10). amoxicillin 2020- No [id number] 500mg Take 1 [facility] 500 mg 1-16 04-28 capsule by ity of capsule 00:00: 00:00 mouth 3 [place] 00 :00 (three) Medical times Branch daily. acetaminoph 2020- No [id number] 1{tbl} Take 1 [facility] en-codeine 1-16 04-28 tablet by ity of (TYLENOL-CO 00:00: 00:[place] #3[place] 00 :00 every 4 Medical 300-30 mg (four) Branch tablet hours as needed for Pain (scale 7-10). amoxicillin 2018- 2021- No [id number] 500mg Take 1 [facility] 500 mg 10-17 capsule by ity of capsule 00:00: 00:00 [...] 3 (three) Medical times Branch daily. acetaminoph 2018-0 [...] 3 (three) Medical times Branch daily. acetaminoph 2017-2020- No 1{tbl} Take 1 U nivers en-codeine 9-21 01-27 tablet by ity of (TYLENOL-CO 00:00: 00:[place] #3[place] 00 :00 every 6 Medical 300-30 mg (six) Branch tablet hours as needed for Pain (scale 4-6) (for cough). acetaminoph 2017-2020- No 1{tbl} Take 1 U nivers en-codeine 9-21 04-28 tablet by ity of (TYLENOL-CO 00:00: [...] by ity of tablet 00:00: mouth at [place] 00 bedtime. Medical Branch SERTraline 2018-0 Yes [id number] 50mg Take 1 U nivers 50 mg 9-03 tablet by ity of tablet 00:00: mouth [place] 00 daily. Medical Branch atorvastati 2018-0 Yes 20mg Take 1 Univ ers n 20 mg 9-03 tablet by ity of tablet 00:00: mouth at [place] 00 bedtime. Medical Branch SERTraline 2017-0 Yes [id number] 50mg Take 1 U nivers 50 mg 9-03 tablet by ity of tablet 00:00: mouth [place] 00 daily. Medical Branch atorvastati 2017-0 Yes 20mg Take 1 [facility] ers n 20 mg 9-03 tablet by ity of tablet 00:00: mouth at [place] 00 bedtime. Medical Branch SERTraline 2018-0 Yes [id number] 50mg Take 1 U nivers 50 mg 9-03 tablet by ity of tablet 00:00: mouth [place] 00 daily. Medical Branch atorvastati 2017-0 Yes 20mg Take 1 [facility] ers n 20 mg 9-03 tablet by ity of tablet 00:00: mouth at [place] 00 bedtime. Medical Branch SERTraline 2017-0 Yes [id number] 50mg Take 1 U nivers 50 mg 9-03 tablet by ity of tablet 00:00: mouth [place] 00 daily. Medical Branch atorvastati 2018-0 Yes 20mg Take 1 [facility] ers n 20 mg 9-03 tablet by ity of tablet 00:00: mouth at [place] 00 bedtime. Medical Branch SERTraline 2018-0 Yes [id number] 50mg Take 1 U nivers 50 mg 9-03 tablet by ity of tablet 00:00: mouth [place] 00 daily. Medical Branch atorvastati 2018-0 Yes 20mg Take 1 [facility] ers n 20 mg 9-03 tablet by ity of tablet 00:00: mouth at [place] 00 bedtime. Medical Branch SERTraline 2018-0 Yes [id number] 50mg Take 1 U nivers 50 mg 9-03 tablet by ity of tablet 00:00: mouth [place] 00 daily. Medical Branch atorvastati 2018-0 Yes 20mg Take 1 [facility] ers n 20 mg 9-03 tablet by ity of tablet 00:00: mouth at [place] bedtime. Medical Branch SERTraline 2018-0 Yes [id number] 50mg Take 1 U nivers 50 mg 9-03 tablet by ity of tablet 00:00: mouth [place] 00 daily. Medical Branch atorvastati 2017-0 Yes 20mg Take 1 [facility] ers n 20 mg 9-03 tablet by ity of tablet 00:00: mouth at [place] bedtime. Medical Branch SERTraline 2017-0 Yes [id number] 50mg Take 1 U nivers 50 mg 9-03 tablet by ity of tablet 00:00: mouth [place] 00 daily. Medical Branch atorvastati 2017-0 Yes 20mg Take 1 [facility] ers n 20 mg 9-03 tablet by ity of tablet 00:00: mouth at [place] bedtime. Medical Branch SERTraline 2017-0 Yes [id number] 50mg Take 1 U nivers 50 mg 9-03 tablet by ity of tablet 00:00: mouth 00 daily. Medical Branch atorvastati 2017-0 Yes 20mg Take 1 [facility] ers n 20 mg 9-03 tablet by ity of tablet 00:00: mouth at [place] bedtime. Medical Branch SERTraline 0 Yes [id number] 50mg Take 1 U nivers 50 mg 9-03 tablet by ity of tablet 00:00: mouth 00 daily. Medical Branch atorvastati 0 Yes 20mg Take 1 [facility] ers n 20 mg 9-03 tablet by ity of tablet 00:00: mouth at [place] bedtime. Medical Branch SERTraline 2017-0 Yes [id number] 50mg Take 1 U nivers 50 mg 9-03 tablet by ity of tablet 00:00: mouth 00 daily. Medical Branch atorvastati 2017-0 Yes 20mg Take 1 [facility] ers n 20 mg 9-03 tablet by ity of tablet 00:00: mouth at [place] bedtime. Medical Branch SERTraline 2017-0 Yes [id number] 50mg Take 1 U nivers 50 mg 9-03 tablet by ity of tablet 00:00: mouth [place] 00 daily. Medical Branch atorvastati 2017-0 Yes 20mg Take 1 [facility] ers n 20 mg 9-03 tablet by ity of tablet 00:00: mouth at [place] bedtime. Medical Branch SERTraline 2017-0 Yes [id number] 50mg Take 1 U nivers 50 mg 9-03 tablet by ity of tablet 00:00: mouth [place] 00 daily. Medical Branch atorvastati 2017-0 Yes 20mg Take 1 [facility] ers n 20 mg 9-03 tablet by ity of tablet 00:00: mouth at [place] 00 bedtime. Medical Branch SERTraline 2017-0 Yes [id number] 50mg Take 1 U nivers 50 mg 9-03 tablet by ity of tablet 00:00: mouth [place] 00 daily. Medical Branch atorvastati 2017-0 Yes 20mg Take 1 [facility] ers n 20 mg 9-03 tablet by ity of tablet 00:00: mouth at [place] 00 bedtime. Medical Branch SERTraline 0 Yes [id number] 50mg Take 1 U nivers 50 mg 9-03 tablet by ity of tablet 00:00: mouth [place] 00 daily. Medical Branch atorvastati 0 Yes 20mg Take 1 [facility] ers n 20 mg 9-03 tablet by ity of tablet 00:00: mouth at [place] 00 bedtime. Medical Branch SERTraline 2017-0 Yes [id number] 50mg Take 1 U nivers 50 mg 9-03 tablet by ity of tablet 00:00: mouth [place] 00 daily. Medical Branch atorvastati 0 Yes 20mg Take 1 [facility] ers n 20 mg 9-03 tablet by ity of tablet 00:00: mouth at [place] 00 bedtime. Medical Branch SERTraline 2017-0 Yes [id number] 50mg Take 1 U nivers 50 mg 9-03 tablet by ity of tablet 00:00: mouth [place] 00 daily. Medical Branch atorvastati 2017-0 Yes 20mg Take 1 [facility] ers n 20 mg 9-03 tablet by ity of tablet 00:00: mouth at [place] 00 bedtime. Medical Branch SERTraline 0 Yes [id number] 50mg Take 1 U nivers 50 mg 9-03 tablet by ity of tablet 00:00: mouth [place] 00 daily. Medical Branch atorvastati 2017-0 Yes 20mg Take 1 [facility] ers n 20 mg 9-03 tablet by ity of tablet 00:00: mouth at [place] 00 bedtime. Medical Branch SERTraline 2017-0 Yes [id number] 50mg Take 1 U nivers 50 mg 9-03 tablet by ity of tablet 00:00: mouth [place] 00 daily. Medical Branch atorvastati 2017-0 Yes 20mg Take 1 [facility] ers n 20 mg 9-03 tablet by ity of tablet 00:00: mouth at [place] 00 bedtime. Medical Branch SERTraline 2017-0 Yes [id number] 50mg Take 1 U nivers 50 mg 9-03 tablet by ity of tablet 00:00: mouth [place] 00 daily. Medical Branch atorvastati 2017-0 Yes 20mg Take 1 [facility] ers n 20 mg 9-03 tablet by ity of tablet 00:00: mouth at [place] 00 bedtime. Medical Branch SERTraline 2017-0 Yes [id number] 50mg Take 1 U nivers 50 mg 9-03 tablet by ity of tablet 00:00: mouth [place] 00 daily. Medical Branch atorvastati 0 Yes 20mg Take 1 [facility] ers n 20 mg 9-03 tablet by ity of tablet 00:00: mouth at [place] 00 bedtime. Medical Branch SERTraline 0 Yes [id number] 50mg Take 1 U nivers 50 mg 9-03 tablet by ity of tablet 00:00: mouth [place] 00 daily. Medical Branch atorvastati 0 Yes 20mg Take 1 [facility] ers n 20 mg 9-03 tablet by ity of tablet 00:00: mouth at [place] 00 bedtime. Medical Branch SERTraline 2017-0 Yes [id number] 50mg Take 1 U nivers 50 mg 9-03 tablet by ity of tablet 00:00: mouth [place] 00 daily. Medical Branch atorvastati 0 Yes 20mg Take 1 [facility] ers n 20 mg 9-03 tablet by ity of tablet 00:00: mouth at [place] 00 bedtime. Medical Branch SERTraline 2017-0 Yes [id number] 50mg Take 1 U nivers 50 mg 9-03 tablet by ity of tablet 00:00: mouth [place] 00 daily. Medical Branch atorvastati 2017-0 Yes 20mg Take 1 [facility] ers n 20 mg 9-03 tablet by ity of tablet 00:00: mouth at [place] 00 bedtime. Medical Branch SERTraline 2017-0 Yes [id number] 50mg Take 1 U nivers 50 mg 9-03 tablet by ity of tablet 00:00: mouth [place] 00 daily. Medical Branch atorvastati 2017-0 Yes 20mg Take 1 [facility] ers n 20 mg 9-03 tablet by ity of tablet 00:00: mouth at [place] 00 bedtime. Medical Branch SERTraline 2018-0 Yes [id number] 50mg Take 1 U nivers 50 mg 9-03 tablet by ity of tablet 00:00: mouth [place] 00 daily. Medical Branch atorvastati 2017-0 Yes 20mg Take 1 [facility] ers n 20 mg 9-03 tablet by ity of tablet 00:00: mouth at [place] 00 bedtime. Medical Branch SERTraline 2017-0 Yes [id number] 50mg Take 1 U nivers 50 mg 9-03 tablet by ity of tablet 00:00: mouth [place] 00 daily. Medical Branch atorvastati 2017-0 Yes 20mg Take 1 [facility] ers n 20 mg 9-03 tablet by ity of tablet 00:00: mouth at [place] 00 bedtime. Medical Branch SERTraline 2017-0 Yes [id number] 50mg Take 1 U nivers 50 mg 9-03 tablet by ity of tablet 00:00: mouth [place] 00 daily. Medical Branch atorvastati 2017-0 Yes 20mg Take 1 [facility] ers n 20 mg 9-03 tablet by ity of tablet 00:00: mouth at [place] 00 bedtime. Medical Branch SERTraline 2017-0 Yes [id number] 50mg Take 1 U nivers 50 mg 9-03 tablet by ity of tablet 00:00: mouth [place] 00 daily. Medical Branch atorvastati 2017-0 Yes 20mg Take 1 [facility] ers n 20 mg 9-03 tablet by ity of tablet 00:00: mouth at [place] 00 bedtime. Medical Branch SERTraline 2017-0 Yes [id number] 50mg Take 1 U nivers 50 mg 9-03 tablet by ity of tablet 00:00: mouth [place] 00 daily. Medical Branch atorvastati 2017-0 Yes 20mg Take 1 Univ ers n 20 mg 9-03 tablet by ity of tablet 00:00: mouth at [place] 00 bedtime. Medical Branch SERTraline 2018-0 Yes [id number] 50mg Take 1 U nivers 50 mg 9-03 tablet by ity of tablet 00:00: mouth [place] 00 daily. Medical Branch atorvastati 2018-0 Yes 20mg Take 1 Univ ers n 20 mg 9-03 tablet by ity of tablet 00:00: mouth at [place] 00 bedtime. Medical Branch SERTraline 2017-0 Yes [id number] 50mg Take 1 U nivers 50 mg 9-03 tablet by ity of tablet 00:00: mouth [place] 00 daily. Medical Branch atorvastati 2018-0 Yes 20mg Take 1 Univ ers n 20 mg 9-03 tablet by ity of tablet 00:00: mouth at [place] 00 bedtime. Medical Branch SERTraline 2018-0 Yes [id number] 50mg Take 1 U nivers 50 mg 9-03 tablet by ity of tablet 00:00: mouth [place] 00 daily. Medical Branch atorvastati 2018-0 Yes 20mg Take 1 Univ ers n 20 mg 9-03 tablet by ity of tablet 00:00: mouth at [place] 00 bedtime. Medical Branch SERTraline 2017-0 Yes [id number] 50mg Take 1 U nivers 50 mg 9-03 tablet by ity of tablet 00:00: mouth [place] 00 daily. Medical Branch atorvastati 2017-0 Yes 20mg Take 1 Univ ers n 20 mg 9-03 tablet by ity of tablet 00:00: mouth at [place] 00 bedtime. Medical Branch SERTraline 2018-0 Yes [id number] 50mg Take 1 U nivers 50 mg 9-03 tablet by ity of tablet 00:00: mouth [place] 00 daily. Medical Branch atorvastati 2017-0 Yes 20mg Take 1 Univ ers n 20 mg 9-03 tablet by ity of tablet 00:00: mouth at [place] 00 bedtime. Medical Branch SERTraline 2017-0 Yes [id number] 50mg Take 1 U nivers 50 mg 9-03 tablet by ity of tablet 00:00: mouth [place] 00 daily. Medical Branch atorvastati 2018-0 Yes 20mg Take 1 Univ ers n 20 mg 9-03 tablet by ity of tablet 00:00: mouth at [place] 00 bedtime. Medical Branch SERTraline 2018-0 Yes [id number] 50mg Take 1 U nivers 50 mg 9-03 tablet by ity of tablet 00:00: mouth [place] 00 daily. Medical Branch atorvastati 2018-0 Yes 20mg Take 1 Univ ers n 20 mg 9-03 tablet by ity of tablet 00:00: mouth at [place] 00 bedtime. Medical Branch SERTraline 2018-0 Yes [id number] 50mg Take 1 U nivers 50 mg 9-03 tablet by ity of tablet 00:00: mouth [place] 00 daily. Medical Branch atorvastati 2018-0 Yes 20mg Take 1 Univ ers n 20 mg 9-03 tablet by ity of tablet 00:00: mouth at [place] 00 bedtime. Medical Branch SERTraline 2017-0 Yes [id number] 50mg Take 1 U nivers 50 mg 9-03 tablet by ity of tablet 00:00: mouth [place] 00 daily. Medical Branch acetaminoph 2017-0 Yes 1{tbl} Take 1 Un [...] as needed for Pain (scale 4-6). acetaminoph 2017- Yes 1{tbl} Take 1 Un [facility]ani en-codeine [...] Immunizations Ordered Filled Immunization Date Status Comments [facility] e Immunization Name Name SARS-COV-2 COVID-19 2021-04-19 Completed Unive rsity of MODERNA VACCINE 00:00:[address] [facility] ical Branch SARS-COV-2 COVID-19 2021-04-19 Completed Unive rsity of MODERNA VACCINE 00:00:[address] [facility] ical Branch SARS-COV-2 COVID-19 2021-04-19 Completed Unive rsity of MODERNA VACCINE 00:00:[address] [facility] ical Branch SARS-COV-2 COVID-19 2021-04-19 Completed Unive rsity of MODERNA VACCINE 00:00:[address] [facility] ical Branch SARS-COV-2 COVID-19 2021-04-19 Completed Unive rsity of MODERNA VACCINE 00:00:[address] [facility] ical Branch SARS-COV-2 COVID-19 2021-04-19 Completed Unive rsity of MODERNA VACCINE 00:00:[address] [facility] ical Branch SARS-COV-2 COVID-19 2021-03-20 Completed Unive rsity of MODERNA VACCINE 00:00:[address] [facility] ical Branch SARS-COV-2 COVID-19 2021-03-20 Completed Unive rsity of MODERNA VACCINE 00:00:[address] [facility] ical Branch SARS-COV-2 COVID-19 2021-03-20 Completed [facility] rs[facility] of MOD[facility]NA VACCINE 00:00:00 [facility] SARS-COV-2 COVID-19 2021-03-20 Completed Unive rsity of MODERNA VACCINE 00:00:[address] [facility] ical Branch SARS-COV-2 COVID-19 2021-03-20 Completed Unive rsity of MODERNA VACCINE 00:00:[address] [facility] ical Branch SARS-COV-2 COVID-19 2021-03-20 Completed [facility] rsity of MODERNA VACCINE 00:00:00 [facility] H1n1 Vaccine 2009-07-16 Completed [facility] o f 00:00:00 [facility] H1n1 Vaccine 2009-07-16 Completed [facility] o f 00:00:00 [facility] H1n1 Vaccine 2009-07-16 Completed [facility] o f 00:00:00 [facility] H1n1 Vaccine 2009-07-16 Completed [facility] o f 00:00:00 [facility] H1n1 Vaccine 2009-07-16 Completed [facility] o f 00:00:00 [facility] H1n1 Vaccine 2009-07-16 Completed [facility] o f 00:00:00 [facility] Vital Signs Vital Name Observation Time Observation Value Comments Source Systolic blood 2021-10-31 18:32:00 151 mm[Hg] Univer sity of pressure [facility] Diastolic blood 2021-10-31 18:32:00 109 mm[Hg] Unive rsity of pressure [facility] Heart rate 2021-10-31 18:32:00 92 /min [facility] [place] [facility] [place] Body temperature 2021-10-31 18:32:00 36.89 Cindi Univ ersity of [facility] Branch Respiratory rate 2021-10-31 18:32:00 16 /min [facility] [place] [facility] Body height 2021-10-31 18:32:00 162.6 cm [facility] [place] [facility] [place] Body weight 2021-10-31 18:32:00 99.791 kg [facility] [place] [facility] BMI 2021-10-31 18:32:00 37.76 kg/m2 [facility] [place] [facility] [place] Oxygen saturation in 2021-10-31 18:32:00 100 /min [facility] of Arterial blood by [facility] Pulse oximetry Branch Systolic blood 2021-06-19 00:30:00 135 mm[Hg] Univer sity of pressure [facility] Diastolic blood 2021-06-19 00:30:00 95 mm[Hg] Unive rsity of pressure [facility] Heart rate 2021-06-19 00:30:00 73 /min [facility] [place] [facility] Respiratory rate 2021-06-19 00:30:00 16 /min Univ ersity of [facility] Oxygen saturation in 2021-06-19 00:30:00 100 /min University of Arterial blood by [facility] Pulse oximetry Branch Body temperature 2021-06-19 00:00:00 37.17 Cindi [facility] ers[facility] [place] [facility] Body height 2021-06-18 19:35:00 162.6 cm [facility] [place] [facility] Body weight 2021-06-18 19:35:00 106.142 kg [facility] [place] [facility] BMI 2021-06-18 19:35:00 40.17 kg/m2 [facility] [place] [facility] Systolic blood 2021-04-05 13:45:00 123 mm[Hg] Univer sity of pressure [place] [facility] Diastolic blood 2021-04-05 13:45:00 86 mm[Hg] Unive rsity of pressure [place] [facility] Heart rate 2021-04-05 13:45:00 78 /min [facility] [place] [facility] Body temperature 2021-04-05 13:45:00 36.72 Cindi [facility] [place] [facility] Respiratory rate 2021-04-05 13:45:00 18 /min [facility] [place] [facility] Body height 2021-04-05 13:45:00 162.6 cm [facility] [place] [facility] Body weight 2021-04-05 13:45:00 106.142 kg [facility] [place] [facility] BMI 2021-04-05 13:45:00 40.17 kg/m2 [facility] [place] [facility] Systolic blood 2021-03-29 14:19:00 134 mm[Hg] Univer sity of pressure [place] [facility] Diastolic blood 2021-03-29 14:19:00 89 mm[Hg] Unive rsity of pressure [place] [facility] Heart rate 2021-03-29 14:19:00 88 /min [facility] [place] [facility] Body temperature 2021-03-29 14:19:00 36.89 Cindi [facility] [place] [facility] Respiratory rate 2021-03-29 14:19:00 18 /min [facility] [place] [facility] Body height 2021-03-29 14:19:00 162.6 cm [facility] [place] [facility] Body weight 2021-03-29 14:19:00 108.047 kg [facility] [place] [facility] BMI 2021-03-29 14:19:00 40.89 kg/m2 [facility] [place] [facility] Systolic blood 2021-03-10 19:16:00 134 mm[Hg] Univer sity of pressure [place] [facility] Diastolic blood 2021-03-10 19:16:00 85 mm[Hg] Unive rsity of pressure [place] [facility] Heart rate 2021-03-10 19:16:00 83 /min [facility] [place] [facility] Body temperature 2021-03-10 19:16:00 36.[address] [facility] [address] Respiratory rate 2021-03-10 19:16:00 18 /min [facility] ers[facility] of [facility] Body height 2021-03-10 19:16:00 162.6 cm [facility] [place] [facility] [place] Body weight 2021-03-10 19:16:00 107.14 kg [facility] [place] [facility] [place] BMI 2021-03-10 19:16:00 40.54 kg/m2 [facility] Systolic blood 2021-02-24 19:05:00 139 mm[Hg] Univer sity of pressure [facility] Diastolic blood 2021-02-24 19:05:00 94 mm[Hg] Unive rsity of pressure [facility] Heart rate 2021-02-24 19:05:00 81 /min [facility] of [facility] Body temperature 2021-02-24 19:04:00 36.[address] [facility] Respiratory rate 2021-02-24 19:04:00 18 /min [facility] ers[facility] of [facility] Body height 2021-02-24 19:04:00 162.6 cm [facility] [place] [facility] Body weight 2021-02-24 19:04:[address] [facility] BMI 2021-02-24 19:04:00 40.51 kg/m2 [facility] Systolic blood 2021-02-22 10:00:00 138 mm[Hg] Univer sity of pressure [facility] Diastolic blood 2021-02-22 10:00:00 100 mm[Hg] Unive rsity of pressure [facility] Heart rate 2021-02-22 10:00:00 71 /min [facility] Respiratory rate 2021-02-22 10:00:00 13 /min Univ ersity of [facility] Oxygen saturation in 2021-02-22 10:00:00 98 /min [facility] Arterial blood by [facility] Pulse oximetry Branch Body temperature 2021-02-22 04:21:04 37.28 Cindi [address]ity of [facility] Body height 2021-02-22 02:24:00 162.[address] [facility] Body weight 2021-02-22 02:24:00 104.[address] [facility] BMI 2021-02-22 02:24:00 39.48 kg/m2 Universi ty of [facility] Systolic blood 2021-01-27 20:31:00 145 mm[Hg] Univer sity of pressure [facility] Diastolic blood 2021-01-27 20:31:00 91 mm[Hg] Unive rsity of pressure [facility] Heart rate 2021-01-27 20:31:00 84 /min Universi ty of [facility] Body temperature 2021-01-27 20:25:00 36.83 Cindi Univ ersity of [facility] Respiratory rate 2021-01-27 20:25:00 18 /min Univ ersity of [facility] Body height 2021-01-27 20:25:00 162.[address] [facility] Body weight 2021-01-27 20:25:00 108.[address] [facility] BMI 2021-01-27 20:25:00 41.02 kg/m2 Univers[facility] ty of [facility] Systolic blood 2021-01-19 22:16:47 128 mm[Hg] Univer sity of [facility] Diastolic blood 2021-01-19 22:16:47 89 mm[Hg] Unive rsity of pressure [facility] Heart rate 2021-01-19 22:16:47 71 /min Universi ty of [facility] Body temperature 2021-01-19 22:16:47 37.72 Cindi [address] [address] of [facility] Respiratory rate 2021-01-19 22:16:47 18 /min [facility] Oxygen saturation in 2021-01-19 22:16:47 100 /min University of Arterial blood by [facility] Pulse oximetry Branch Body weight 2021-01-19 18:09:00 106[address] [facility] BMI 2021-01-19 18:09:00 40.17 kg/m2 Universi ty of [facility] Systolic blood 2020-11-11 01:09:43 147 mm[Hg] Univer sity of pressure [facility] Diastolic blood 2020-11-11 01:09:43 96 mm[Hg] Unive rsity of pressure [facility] Heart rate 2020-11-11 01:09:43 86 /min Universi ty of [place] [facility] Body temperature 2020-11-11 01:09:43 37.28 Cindi Univ ersity of [facility] Respiratory rate 2020-11-11 01:09:43 18 /min Univ [facility] Oxygen saturation in 2020-11-11 01:09:43 100 /min University of Arterial blood by [facility] dejah Pulse oximetry Branch Body weight 2020-11-11 00:06:00 106.142 kg Universi ty [facility] BMI 2020-11-11 00:06:00 40.17 kg/m2 [facility]i [facility] Systolic blood 2020-11-11 01:09:43 147 mm[Hg] Univer sity of [facility] Diastolic blood 2020-11-11 01:09:43 96 mm[Hg] Unive rsity of [facility] Heart rate 2020-11-11 01:09:43 86 /min [facility] Body temperature 2020-11-11 01:09:43 37.28 Cindi Univ [facility] Respiratory rate 2020-11-11 01:09:43 18 /min Univ [facility] Oxygen saturation in 2020-11-11 01:09:43 100 /min University of Arterial blood by [facility] dejah Pulse oximetry Branch Body weight 2020-11-11 00:06:00 106.142 kg [facility]i [facility] BMI 2020-11-11 00:06:00 40.17 kg/m2 [facility] Diastolic blood 2019-12-16 21:22:00 87 mm[Hg] Unive rsity of pressure [facility] Heart rate 2019-12-16 21:22:00 83 /min [facility]i [facility] Body height 2019-12-16 21:22:00 162.6 cm [facility] Body weight 2019-12-16 21:22:00 106.142 kg [facility] BMI 2019-12-16 21:22:00 40.17 kg/m2 [facility] Systolic blood 2019-12-16 21:22:00 132 mm[Hg] Univer sity of pressure [facility] Diastolic blood 2019-12-16 21:22:00 87 mm[Hg] Unive rsity of pressure [facility] Heart rate 2019-12-16 21:22:00 83 /min [facility] Body height 2019-12-16 21:22:00 162.6 cm [facility] Body weight 2019-12-16 21:22:00 106.142 kg [facility] BMI 2019-12-16 21:22:00 40.17 kg/m2 [facility] Systolic blood 2019-12-16 21:22:00 132 mm[Hg] [facility] Procedures Procedure Date / Time Performing Clinician Source Performed NOTICE OF PRIVACY 2021-10-31 18:23:05 Doctor Yomaira, [facility] PRACTICES [place] [facility] [place] CONSENT/REFUSAL FOR 2021-10-31 18:20:02 Doctor Yomaira, [facility] DIAGNOSIS [facility]REAT[facility] PEL[facility] W 2021-06-18 22:53:18 Nohemi Dinh [facility] CONTRAST [facility] ASSIGNMENT OF BENEFITS 2021-06-18 20:28:15 Doctor Juformerly [facility] XR ABDOMEN 1 VW 2021-06-18 20:23:37 Karlee Gomez [facility] POCT TEST 2021-06-18 20:10:00 Karlee Gomez [facility] URINALYSIS 2021-06-18 20:09:00 Karlee Gomez [facility] LIPASE 2021-06-18 20:08:00 Karlee Gomez [facility] HEPATIC FUNCTION PANEL 2021-06-18 20:08:00 Karlee Gomez [facility] ([id number]) (ALB,T.PRO,BILI Medical Branch T,BU/BC,ALT,AST,ALK PHOS) BASIC METABOLIC PANEL 2021-06-18 20:08:00 Karlee Gomez [facility] (NA, K, CL, CO2, GLUCOSE, Medica l Branch BUN, CREATININE, CA) CBC WITH DIFF 2021-06-18 20:08:00 Karlee Gomez [facility] CONSENT/REFUSAL FOR 2021-06-18 19:15:28 Doctor Yomaira [facility] DIAGNOSIS AND TREATMENT [place] [facility] POCT TEST 2021-03-29 14:12:00 Tasha DeO liveira [facility] POLYMERIZATION SUPERVISOR CLINIC ULTRASOUND 2021-03-29 05:01:00 Doctor Yomaira [facility] [place] [facility] POCT TEST 2021-02-24 00:00:00 Tasha De Oliveira [facility] COMP. METABOLIC PANEL 2021-02-22 04:38:00 Fredo Hogue [facility] ([id number]) [facility] [place] CT ABDOMEN PELVIS W 2021-02-22 04:14:23 Riri Isaacs [facility] CONTRAST Medical Branch LIPASE 2021-02-22 03:30:00 Fredo Hogue [facility] CBC WITH DIFF 2021-02-22 03:30:00 Fredo Hogue [facility] URINALYSIS 2021-02-22 03:30:00 Fredo Hogue [facility] POCT TEST 2021-02-22 03:30:00 Fredo Hogue [facility] CONSENT/REFUSAL FOR 2021-02-22 02:09:58 Doctor Yomaira [facility] DIAGNOSIS AND TREATMENT [place] [facility] [place] ASSIGNMENT OF BENEFITS 2021-01-27 20:14:09 Doctor Yomaira, [facility] Medical Branch REFERRAL- 2021-01-22 05:01:00 Doctor Burnette, [facility] REQUEST/RESPONSE [place] [facility] CT ABDOMEN PELVIS W 2021-01-19 21:04:54 Sam Evans [facility] CONTRAST Medical Branch POCT TEST 2021-01-19 20:54:00 Sam Evans [facility] URINALYSIS 2021-01-19 20:38:00 Sam Evans [facility] COMP. METABOLIC PANEL 2021-01-19 20:36:00 Sam Evans [facility] ([id number]) [facility] [place] CBC WITH DIFF 2021-01-19 20:36:00 Sam Evans [facility] NOTICE OF PRIVACY 2021-01-19 18:00:58 Doctor Yomaira [facility] [place] [facility] CONSENT/REFUSAL FOR 2021-01-19 17:56:54 [facility] DIAGNOSIS AND TREATMENT [place] [facility] URINALYSIS 2020-11-11 00:46:00 Nohemi Dinh [facility] NOTICE OF PRIVACY 2020-11-11 00:01:32 Doctor Yomaira [facility] [place] [facility] CONSENT/REFUSAL FOR 2020-11-10 23:59:08 Doctor Tres Burnette [facility] DIAGNOSIS AND TREATMENT [place] [facility] INSURANCE 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 2020-02-20 05:01:00 Doctor uBrnette [facility] Name Medical Branch AUTHORIZATION FOR RELEASE 2020-02-10 05:01:00 Doctor Yomaira, [facility] [place] [facility] INSURANCE 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 2020-01-31 05:01:00 Doctor Yomaira [facility] Name [facility] [place] XR KNEE <3 VW RIGHT 2019-12-16 21:34:01 Maia Shrestha [facility] [place] ASSIGNMENT OF BENEFITS 2019-12-16 21:15:03 Doctor Yomaira, [facility] [place] [facility] Encounters Start End Encounter Admission Attending Care Care Encounter Source Date/Time Date/Time Type Type Clinicians Facility Department ID 2021-08-02 Emergency [facility] [id number] Univers 23:28:[address] [facility] 2021-08-01 Emergency [facility] [id number] Univers 20:45:[address] [facility] 2021-08-01 Emergency [facility] [id number] Univers 14:07:[address] [facility] 2021-07-31 Emergency [facility] [id number] Univers [facility]02 2021-11-02 Emergency EM Harris, HCAPM SKYLA [id number] [facility] 14:32:00 14:48:00 Jose [id number] israel [facility] 2021-11-02 2021-11-02 Emergency EM Harris, HCAPM HCAPM [id number] [facility] 14:32:00 14:48:00 Jose 20 [facility] 2021-10-31 2021-10-31 Emergency [facility] [id number] Univers 12:33:00 13:01:[address] [facility] 2021-10-31 2021-10-31 Emergency [facility] [id number] Univers 12:33:00 13:01:00 Karlee SMITH [id number] [place]y [place] [phone] [address] 2021-10-31 2021-10-31 Orders Doctor BREANNA 1.2.840.114 [id number] Univers 00:00:00 00:00:00 Only Unassigned, JUANY [id number] [facility] 4.2.7.2.686 [place] as [phone] [address] 2021-06-18 2021-06-18 Emergency [facility] [id number] Univers 14:44:00 19:42:00 Nohemi Smith [id number] i [place] [phone] [address] 2021-06-14 2021-06-14 Telephone Jordan Correa 1.2.840.114 [id number] Univers 00:00:00 00:00:00 , Mony Leiva [id number] [place] [id number] [address] 2021-04-28 2021-04-28 Outpatient TASHA MORROW [facility] [id number]-20 Univers 13:30:00 13:30:00 [id number] ity [facility] 2021-04-28 2021-04-28 Outpatient TASHA MORROW [facility] [id number] Univers 13:30:00 13:30:00 ity [facility] 2021-04-15 2021-04-15 Outpatient Aravind STROUD [facility] [id number]-20 Univers 14:00:00 14:00:00 KILEY [id number] [facility] 2021-04-15 2021-04-15 Outpatient R MAXIMUS [facility] [id number] Univers 14:00:00 14:00:00 KILEY [facility] 2021-04-12 2021-04-12 [facility] [id number] P-[id number] Univers 08:00:00 08:00:00 KEYSHA [id number] [facility] 2021-04-12 2021-04-12 Outpatient R JACKELINE [facility] [id number] Univers 08:00:00 08:00:00 KEYSHA [facility] 2021-04-05 2021-04-05 Office Tasha De Oliveira [facility] [id number] Univers 08:36:11 09:07:09 Visit Cam [place] [id number] [place] [phone] Ar dical nal [address] [place] [address] 2021-04-05 2021-04-05 Outpatient R TASHA DE OLIVEIRA [facility] [id number]-20 Univers 08:45:00 08:45:00 [id number] [facility] 2021-04-05 2021-04-05 Outpatient R ALVINO TASHA [facility] [id number] Univers 08:45:00 08:45:00 ity [facility] 2021-04-02 2021-04-02 Telephone Tasha De Oliveira [facility] 1.2.840.114 [id number] Univers 00:00:00 00:00:00 Cam [place] [id number] [place] [phone] Ar dical nal [address] [place] [address] 2021-03-29 2021-03-29 Office Tasha De Oliveira [facility] 1.2.123.754 [id number] Univers 08:54:36 09:35:27 Visit Cam [place] 350.1.13.10 [place] [phone] Ar dic[address] 2021-03-29 2021-03-29 Outpatient R TASHA DE OLIVEIRA [facility] [id number]-20 Univers 09:00:00 09:00:00 [id number] ity [facility] 2021-03-29 2021-03-29 Outpatient R TASHA DE OLIVEIRA [facility] [id number] Univers 09:00:00 09:00:00 ity [facility] 2021-03-29 2021-03-29 Orders Doctor CARLOS 1.2.840.114 [id number] Univers 00:00:00 00:00:00 Only Unassigned, JUANY 350.1.13.10 ity of [place] [facility] 4.2.7.2.686 Matt as [id number] [address] 2021-03-19 2021-03-19 Outpatient R ALVINO [facility] [id number] 4P-20 Univers 11:00:00 11:00:00 [id number] ity [facility] 2021-03-19 2021-03-19 Outpatient R ALVINO [facility] [id number] Univers 11:00:00 11:00:00 ity [facility] 2021-03-18 2021-03-18 Telephone Alvino [facility] 1.2.840.114 [id number] Univers 00:00:00 00:00:00 Cam [place] 350.1.13.10 [place] [phone] [address] 2021-03-10 2021-03-10 Office [facility] 1.2.241.914 [id number] Univers 13:52:09 14:30:52 Visit Cam [place] 350.1.13.10 [place] [phone] [address] 2021-03-10 2021-03-10 [facility] [id number]-20 Univers 14:15:00 14:15:00 [id number] ity [facility] 2021-03-10 2021-03-10 Outpatient R DE OLIVEIRA, [facility] [id number] Univers 14:15:00 14:15:00 ity [facility] 2021-03-02 2021-03-02 Telephone Tasha De Oliveira [facility] 1.2.840.114 [id number] Univers 00:00:00 00:00:00 Cam Taylor 350.1.13.10 [place] [phone] [address] 2021-02-24 2021-02-24 Office [facility] 1.2.775.553 [id number] Univers 13:22:56 14:21:21 Visit Cam Taylor 350.1.13.10 [place] [id number] [address] 2021-02-24 2021-02-24 Outpatient R TASHA DE OLIVEIRA [facility] [id number]-20 Univers 13:30:00 13:30:00 [id number] ity [facility] 2021-02-24 2021-02-24 Outpatient R TASHA DE OLIVEIRA [facility] [id number] Univers 13:30:00 13:30:00 [facility] 2021-02-21 2021-02-22 Emergency Riri Isaacs [facility] 1.2.840.114 [id number] Univers 22:04:00 05:32:00 Roni Smith 350.1.13.10 [place] [id number] [address] 2021-01-27 2021-01-27 Office Tasha De Oliveira [facility] [id number] [id number] Univers 15:15:37 16:25:23 Visit Inder Smith 350.1.13.10 [place] [phone] [address] 2021-01-27 2021-01-27 Out[facility] [id number]-20 Univers 15:00:00 15:00:[id number] [facility] 2021-01-27 2021-01-27 Outpatient R TASHA DE OLIVEIRA [facility] [id number] Univers 15:00:00 15:00:00 ity [facility] 2021-01-27 2021-01-27 Orders Doctor BREANNA 1.2.840.114 [id number] Univers 00:00:00 00:00:00 Only Unassigned, JUANY 350.1.13.10 ity of [place] [facility] 4.2.7.2.686 Matt as [phone] [address] 2021-01-22 2021-01-22 Orders Doctor BREANNA 1.2.840.114 [id number] Univers 00:00:00 00:00:00 Only Unassigned, JUANY 350.1.13.10 ity of [place] [facility] 4.2.7.2.686 Matt as [phone] [address] 2021-01-19 2021-01-19 Emergency [facility] [id number] Univers 13:10:00 17:27:00 Sam Smith 350.1.13.10 i ty of [place] 4.2.7.2.686 [facility] [place] [phone] [facility] 084 [place] 2020-12-21 2020-12-21 Patient [facility] 1.2.840.114 [id number] Univers 00:00:00 00:00:00 Outreach Fredrick [facility] 350.1.13.[address] [facility] [place]2.7.2.[place] [id number] Ar dical [address] 2020-11-10 2020-11-10 Emergency [facility] [id number] 18:08:00 20:09:00 Nohemi Smith 350.1.13.10 [place] 4.2.7.2.686 [place] [id number] [facility] 2020-11-10 2020-11-10 Emergency [facility] [id number] Univers 18:08:00 20:09:00 Nohemi Smith 350.1.13.10 i ty of [place] 4[place]2.7.2.686 [place] [facility] [phone] [place] [id number] [place] 2020-02-20 2020-02-20 Orders Doctor BREANNA 1.2.840.114 [id number] Univers 00:00:00 00:00:00 Only Unassigned, JUANY 350.1.13.10 ity of [place] [facility] 4.2.7.2.686 Matt as [id number] [address] 2020-02-20 2020-02-20 Orders Doctor BREANNA 1.2.840.114 [id number] 00:00:00 00:00:00 Only Unassigned, JUANY 350.1.13.10 [place] [facility] 4.2.7.2.686 [id number] [facility] 2020-02-10 2020-02-10 Orders Doctor CARLOS 1.2.840.114 [id number] Univers 00:00:00 00:00:00 Only Unassigned, JUANY 350.1.13.10 ity of [place] [facility] 4.2.7.2.686 Matt as [id number] [address] 2020-02-10 2020-02-10 Orders Doctor CARLOS 1.2.840.114 [id number] 00:00:00 00:00:00 Only Unassigned, JUANY 350.1.13.10 [place] [facility] 4.2.7.2.686 [id number] [facility] 2020-01-31 2020-01-31 Orders Doctor CARLOS 1.2.840.114 [id number] Univers 00:00:00 00:00:00 Only Unassigned, JUANY 350.1.13.10 ity of [place] [facility] 4.2.7.2.686 Matt as [id number] [address] 2020-01-31 2020-01-31 Orders Doctor CARLOS 1.2.840.114 [id number] 00:00:00 00:00:00 Only Unassigned, JUANY 350.1.13.10 [place] [facility] 4.2.7.2.686 [id number] 2020-01-29 2020-01-29 Telephone ALMA Kim 1.2.840.114 [id number] Univers 00:00:00 00:00:00 Joaquín Bedolla 350.1.13.10 it y of Surgical 4.2.7.2.686 Matt as Specialti [phone] Me dical es 198 [facility] 2020-01-29 2020-01-29 Telephone [facility] 1.2.840.114 [id number] 00:00:00 00:00:00 [facility]ín [facility] 350.1.13.10 Surgical 4.2.7.2.686 Specialti [id number] es 198 [place] 2020-01-28 2020-01-28 [place] [facility] 1.2.840.114 [id number] [facility] 00:00:00 00:00:00 [facility]ín [facility] 350.1.13.10 it y of Surgical 4.2.7.2.686 Matt as Specialti [phone] Ar dical es 198 [facility] 2020-01-28 2020-01-28 [place] [facility] 1.2.840.114 [id number] 00:00:00 00:00:00 Joaquín Bedolla 350.1.13.10 Surgical 4.2.7.2.686 Specialti [phone] es [address] [place] 2020-01-01 2020-01-01 Outpatient [facility] [id number]-20 Univers 00:00:00 00:00:00 JOAQUÍN [id number] ity of [facility] 2019-12-26 2019-12-26 [place] [facility] 1.2.840.114 [id number] Univers 00:00:00 00:00:00 Joaquín Bedolla 350.1.13.10 it y of Surgical 4.2.7.2.686 Matt as Specialti [phone] Me dical es 198 [facility] 2019-12-26 2019-12-26 [place] [facility] 1.2.840.114 [id number] Univers 00:00:00 00:00:00 [facility]aquín [facility] 350.1.13.10 it y of Surgical 4.2.7.2.686 Matt as Specialti [phone] Ar dical es 198 [facility] 2019-12-26 2019-12-26 [place] [facility] 1.2.840.114 [id number] 00:00:00 00:00:00 [facility]ín [facility] 350.1.13.10 Surgical 4.2.7.2.686 Specialti [id number] es [address] [place] 2019-12-26 2019-12-26 Telephone [facility] 1.2.840.114 [id number] 00:00:00 00:00:00 [facility]ín [facility] 350.1.13.10 Surgical 4.2.7.2.686 Specialti [id number] es [address] [place] 2019-12-16 2019-12-17 Office [facility] 1.2.424.114 [id number] 16:15:48 10:13:00 Visit Joaquín [facility] 350.1.13.10 Surgical 4.2.7.2.686 Specialti [id number] es [address] [place] 2019-12-16 2019-12-17 [facility] 1.2.353.894 [id number] Univers 16:15:48 10:13:00 Visit Joaquín Bedolla 350.1.13.10 it y of Surgical 4.2.7.2.686 Matt as Specialti [phone] Me dical es 198 [facility] 2019-12-16 2019-12-16 Outpatient [facility] [id number] Univers 16:34:01 23:59:00 MAIA ity [facility] 2019-12-16 2019-12-16 [facility] 1.2.840.114 [id number] Univers 16:34:00 23:59:00 Encounter Maia [facility] 350.1.13.10 ity of Surgical 4.2.7.2.686 Matt as Specialti [phone] Me dical es 809 [facility] 2019-12-16 2019-12-16 Outpatient R [facility] [id number] 4P-20 Univers 16:00:00 16:00:00 JOAQUÍN [id number] ity [facility] 2019-12-16 2019-12-16 Orders Doctor CARLOS 1.2.840.114 [id number] Univers 00:00:00 00:00:00 Only Unassigned, JUANY 350.1.13.10 ity of [place] [facility] 4.2.7.2.686 Matt as [phone] [address] Results Test Description Test Time Test Comments Results Result Comments Source HEPATIC FUNCTION PANEL (60992) (ALB,T.PRO,BILI 2021-06-18 20 :35:07 T,BU/BC,ALT,AST,ALK PHOS) Test Item Value Reference Range Interpretation Comme nts TOTAL BILI (test code = 7175767571) 0.3 mg/dL 0.1-1.1 BILI UNCON (test code = 7123419816) 0.3 mg/dL 0.1-1.1 BILI CONJ (test code = 3899656056) 0.0 mg/dL 0.0-0.3 T PROTEIN (test code = 9158395745) 7.6 g/dL 6.3-8.2 ALBUMIN (test code = 5275495924) 4.3 g/dL 3.5-5.0 ALK PHOS (test code = 9727888408) 77 U/L 34-122 ALTv (test code = 1742-6) 42 U/L 5-35 H AST(SGOT) (test code = 3770022621) 33 U/L 13-40 Lab Interpretation (test code = 52506-5) Abnormal [facility]63933[facility] (ALB,T.PRO,BILI T,BU/BC,ALT,AST,ALK PHOS)2021-06-18 20:35:07 Test Item Value Reference Range Interpretation Comments TOTAL BILI (test code = 9442941282) 0.3 mg/dL 0.1-1.1 BILI UNCON (test code = 5702706528) 0.3 mg/dL 0.1-1.1 BILI CONJ (test code = 7659071699) 0.0 mg/dL 0.0-0.3 T PROTEIN (test code = 7791179628) 7.6 g/dL 6.3-8.2 ALBUMIN (test code = 3540340731) 4.3 g/dL 3.5-5.0 ALK PHOS (test code = 4615263305) 77 U/L 34-122 ALTv (test code = 1742-6) 42 U/L 5-35 H AST(SGOT) (test code = 7948013860) 33 U/L 13-40 Lab Interpretation (test code = Abnormal 98471-7) [facility] METABOLIC PANEL (NA, K, CL, CO2, GLUCOSE, BUN, CREATININE, CA)2021-06-18 20:34:47 Test Item Value Reference Range Interpretation Comments NA (test code = 136 mmol/L 135-145 0120386145) K (test code = 4.3 mmol/L 3.5-5.0 2771003353) CL (test code = 105 mmol/L 98-108 7387151329) CO2 TOTAL (test code = 24 mmol/L 23-31 4347513904) AGAP (test code = 2-16 6208188983) BUN (test code = 9 mg/dL 7-23 0622230735) GLUCOSE (test code = 112 mg/dL 70-110 H 4194406137) CREATININE (test code = 0.80 mg/dL 0.50-1.04 8047160038) CALCIUM (test code = 8.8 mg/dL 8.6-10.6 5514279251) eGFR (test code = mL/min/1.73m2 6647256437) ISAMAR (test code = ISAMAR) Association of [...] tests). Lab Interpretation Abnormal (test code = 72669-2) [facility]47 Test Item Value Reference Range Interpretation Comments LIPASE (test code = 2505912430) 74 U/L 0-220 Lab Interpretation (test code = Normal 06669-7) [facility] PANEL (NA, K, CL, CO2, GLUCOSE, BUN, CREATININE, CA)2021-06-18 20:34:47 Test Item Value Reference Range Interpretation Comments NA (test code = 136 mmol/L 135-145 1235712259) K (test code = 4.3 mmol/L 3.5-5.0 8017572100) CL (test code = 105 mmol/L 98-108 5339793401) CO2 TOTAL (test code = 24 mmol/L 23-31 1552531068) AGAP (test code = 2-16 7388554719) BUN (test code = 9 mg/dL 7-23 8968921185) GLUCOSE (test code = 112 mg/dL 70-110 H 7924175857) CREATININE (test code = 0.80 mg/dL 0.50-1.04 6554211203) CALCIUM (test code = 8.8 mg/dL 8.6-10.6 1102145154) eGFR (test code = mL/min/1.73m2 2188839370) ISAMAR (test code = ISAMAR) Association of [...] tests). Lab Interpretation Abnormal (test code = 83625-8) [facility]47 Test Item Value Reference Range Interpretation Comments LIPASE (test code = 1767294953) 74 U/L 0-220 Lab Interpretation (test code = Normal 47541-6) [facility] [id number] 20:27:26 Test Item Value Reference Range Interpretation Comments WBC (test code = See_Comment [Automated message] 4990-2) The system coresystems generated this result transmitted ref erence range: 4.30 - 1 1.10 10*3/?L. The re ference range was not u sed to interpret this result as normal/abnor mal. RBC (test code = See_Comment [Automated message] 789-8) The system coresystems generated this result transmitted ref erence range: [...] RDW-SD (test code 46.2 fL 39.0-49.9 = 90527-2) RDW-CV (test code 14.2 % 12.0-15.5 = 788-0) PLT (test code = See_Comment [Automated message] 777-3) The system whic h generated this result transmitted ref erence range: 166 - 35 8 10*3/?L. The re ference range was not u sed to interpret this result as normal/abnor mal. MPV (test code = 11.3 fL 9.5-12.9 40911-6) NRBC/100 WBC (test See_Comment [Automat ed message] code = 0431521579) The syste m which generated this result transmitted ref erence range: 0.0 - 10 .0 /100 WBCs. The refer ence range was not u sed to interpret this result as normal/abnor mal. NRBC x10^3 (test <0.01 See_Comment [Automated message] code = 7619024935) The syste m which generated this result transmitted ref erence range: 10*3/?L. The reference range was not used to interpr et this result as normal/abnormal . GRAN MAT (NEUT) % 65.2 % (test code = 770-8) IMM GRAN % (test 0.20 % code = 0616511473) LYMPH % (test code 24.7 % = 736-9) MONO % (test code 6.4 % = 5905-5) EOS % (test code = 2.6 % 713-8) BASO % (test code 0.9 % = 706-2) GRAN MAT 3.80 10*3/uL 1.88-7.09 x10^3(ANC) (test code = 8781694594) IMM GRAN x10^3 <0.03 0.00-0.06 (test code = 6941312140) LYMPH x10^3 (test 1.44 10*3/uL 1.32-3.29 code = 731-0) MONO x10^3 (test 0.37 10*3/uL 0.33-0.92 code = 742-7) EOS x10^3 (test 0.15 10*3/uL 0.03-0.39 code = 711-2) BASO x10^3 (test 0.05 10*3/uL 0.01-0.07 code = 704-7) [facility] WITH [id number] 20:27:26 Test Item Value Reference Range Interpretation Comments WBC (test code = See_Comment [Automated message] 6690-2) The system coresystems generated this result transmitted ref erence range: 4.30 - 1 1.10 10*3/?L. The re ference range was not u sed to interpret this result as normal/abnor mal. RBC (test code = See_Comment [Automated message] 029-8) The system coresystems generated this result transmitted ref erence range: [...] RDW-SD (test code 46.2 fL 39.0-49.9 = 35223-0) RDW-CV (test code 14.2 % 12.0-15.5 = 788-0) PLT (test code = See_Comment [Automated message] 767-3) The system coresystems generated this result transmitted ref erence range: 166 - 35 8 10*3/?L. The re ference range was not u sed to interpret this result as normal/abnor mal. MPV (test code = 11.3 fL 9.5-12.9 60237-1) NRBC/100 WBC (test See_Comment [Automat ed message] code = 2219974990) The syste [employer] which generated this result transmitted ref erence range: 0.0 - 10 .0 /100 WBCs. The refer ence range was not u sed to interpret this result as normal/abnor mal. NRBC x10^3 (test <0.01 See_Comment [Automated message] code = 0498751130) The syste m which generated this result transmitted ref erence range: 10*3/?L. The reference range was not used to interpr et this result as normal/abnormal . GRAN MAT (NEUT) % 65.2 % (test code = 770-8) IMM GRAN % (test 0.20 % code = 8119217760) LYMPH % (test code 24.7 % = 736-9) MONO % (test code 6.4 % = 5905-5) EOS % (test code = 2.6 % 713-8) BASO % (test code 0.9 % = 706-2) GRAN MAT 3.80 10*3/uL 1.88-7.09 x10^3(ANC) (test code = 1743806063) IMM GRAN x10^3 <0.03 0.00-0.06 (test code = 0777588717) LYMPH x10^3 (test 1.44 10*3/uL 1.32-3.29 code = 731-0) MONO x10^3 (test 0.37 10*3/uL 0.33-0.92 code = 742-7) EOS x10^3 (test 0.15 10*3/uL 0.03-0.39 code = 711-2) BASO x10^3 (test 0.05 10*3/uL 0.01-0.07 code = 704-7) [facility] [id number] 20:10:00 Test Item Value Reference Range Interpretation Comments POCT PREG (test code = 1605) negative On board controls acceptable with C present Line (test code = 3574) Lab Interpretation (test code = Normal 03150-8) [facility] [id number] 20:10:00 Test Item Value Reference Range Interpretation Comments POCT PREG (test code = 1605) negative On board controls acceptable with C present Line (test code = 3574) Lab Interpretation (test code = Normal 75952-9) [facility] [id number] 14:12:00 Test Item Value Reference Range Interpretation Comments POCT PREG (test code Negative = 1605) On board controls Yes acceptable with C Line (test code = 3574) POCT PREG LOT # (test code = 3575) POCT PREG TEST DATE (test code = 3576) ISAMAR (test code = ISAMAR) accurate development and interpretation of all internal controls [facility] [id number] 14:12:00 Test Item Value Reference Range Interpretation Comments POCT PREG (test code Negative = 1605) On board controls Yes acceptable with C Line (test code = 3574) POCT PREG LOT # (test code = 3575) POCT PREG TEST DATE (test code = 3576) ISAMAR (test code = ISAMAR) accurate development and interpretation of all internal controls [facility] [id number] 19:07:00 Test Item Value Reference Range Interpretation Comments POCT PREG (test code = 1605) Negative On board controls acceptable with C Yes Line (test code = 3574) POCT PREG LOT # (test code = 3575) POCT PREG TEST DATE (test code = 3576) Lab Interpretation (test code = Normal 68118-9) [facility] [id number] 19:07:00 Test Item Value Reference Range Interpretation Comments POCT PREG (test code = 1605) Negative On board controls acceptable with C Yes Line (test code = 3574) POCT PREG LOT # (test code = 3575) POCT PREG TEST DATE (test code = 3576) Lab Interpretation (test code = Normal 98110-1) [facility] [id number] 19:07:00 Test Item Value Reference Range Interpretation Comments POCT PREG (test code = 1605) Negative On board controls acceptable with C Yes Line (test code = 3574) POCT PREG LOT # (test code = 3575) POCT PREG TEST DATE (test code = 3576) Lab Interpretation (test code = Normal 80090-2) [facility] Metabolic [id number] 05:20:14 Test Item Value Reference Range Interpretation Comments NA (test code = 139 mmol/L 135-145 7143446939) K (test code = 2.8 mmol/L 3.5-5.0 LL 1771350699) CL (test code = 113 mmol/L 98-108 H 7443678456) CO2 TOTAL (test code = 21 mmol/L 23-31 L 2324889158) AGAP (test code = 2-16 6913444296) BUN (test code = 10 mg/dL 7-23 4546440917) GLUCOSE (test code = 68 mg/dL 70-110 L 2720780444) CREATININE (test code = 0.47 mg/dL 0.50-1.04 L 8323416516) TOTAL BILI (test code = 0.3 mg/dL 0.1-1.6 7066124688) CALCIUM (test code = 6.7 mg/dL 8.6-10.6 L 1586685610) T PROTEIN (test code = 5.1 g/dL 6.3-8.2 L 0099623488) ALBUMIN (test code = 2.8 g/dL 3.5-5.0 L 0363806678) ALK PHOS (test code = 54 U/L 34-122 7333334591) ALTv (test code = 10 U/L 5-35 1742-6) AST(SGOT) (test code = 17 U/L 13-40 5721035404) eGFR (test code = mL/min/1.73m2 5143715531) ISAMAR (test code = ISAMAR) Association of [...] tests). Lab Interpretation Abnormal (test code = 43839-9) [facility] with [id number] 04:44:04 Test Item Value Reference Range Interpretation Comments WBC (test code = See_Comment [Automated message] 2590-2) The system coresystems generated this result transmitted ref erence range: 4.30 - 1 1.10 10*3/?L. The re ference range was not u sed to interpret this result as normal/abnor mal. RBC (test code = See_Comment [Automated message] 729-8) The system coresystems generated this result transmitted ref erence range: [...] RDW-SD (test code 45.1 fL 39.0-49.9 = 57856-0) RDW-CV (test code 13.8 % 12.0-15.5 = 788-0) PLT (test code = See_Comment [Automated message] 637-3) The system coresystems generated this result transmitted ref erence range: 166 - 35 8 10*3/?L. The re ference range was not u sed to interpret this result as normal/abnor mal. MPV (test code = 12.0 fL 9.5-12.9 73645-6) NRBC/100 WBC (test See_Comment [Automat ed message] code = 8401870899) The syste m which generated this result transmitted ref erence range: 0.0 - 10 .0 /100 WBCs. The refer ence range was not u sed to interpret this result as normal/abnor mal. NRBC x10^3 (test <0.01 See_Comment [Automated message] code = 0932627349) The syste m which generated this result transmitted ref erence range: 10*3/?L. The reference range was not used to interpr et this result as normal/abnormal . GRAN MAT (NEUT) % 50.4 % (test code = 770-8) IMM GRAN % (test 0.50 % code = 9353011875) LYMPH % (test code 37.3 % = 736-9) MONO % (test code 7.2 % = 5905-5) EOS % (test code = 3.6 % 713-8) BASO % (test code 1.0 % = 706-2) GRAN MAT 2.94 10*3/uL 1.88-7.09 x10^3(ANC) (test code = 4926232540) IMM GRAN x10^3 0.03 10*3/uL 0.00-0.06 (test code = 6844442246) LYMPH x10^3 (test 2.18 10*3/uL 1.32-3.29 code = 731-0) MONO x10^3 (test 0.42 10*3/uL 0.33-0.92 code = 742-7) EOS x10^3 (test 0.21 10*3/uL 0.03-0.39 code = 711-2) BASO x10^3 (test 0.06 10*3/uL 0.01-0.07 code = 704-7) [facility] 04:29:33 Test Item Value Reference Range Interpretation Comments APPEARANCE (test code = Hazy Clear A 2467004259) COLOR (test code = Yellow Yellow 3172658705) PH (test code = 4.8-8.0 1265562812) SP GRAVITY (test code = 1.003-1.030 4894744714) GLU U QUAL (test code = Normal Normal 8368847411) BLOOD (test code = Negative Negative 6063467687) KETONES (test code = Negative Negative 2713379127) PROTEIN (test code = 30 mg/dL Negative A 2887-8) UROBILIN (test code = 2.0 mg/dL Normal A 5381891875) BILIRUBIN (test code = Negative Negative 3184726330) NITRITE (test code = Negative Negative 8414938198) LEUK SOULEYMANE (test code = Negative Negative 1005872994) RBC/HPF (test code = <1 See_Comment [Autom ated message] 7089215001) The system coresystems generated this result transmit [place] reference range : 0 - 3 HPF. The refe rence range was not u sed to interpret th is result as normal/abnormal . WBC/HPF (test code = <1 See_Comment [Autom ated message] 0502434925) The system [employer] generated this result transmit [place] reference range : 0 - 5 HPF. The refe rence range was not u sed to interpret th is result as normal/abnormal . BACTERIA (test code = Negative Negative 8194456166) MUCOUS (test code = Moderate Negative LPF A 6694503809) AMORPHOUS (test code = Rare Rare HPF 2674687088) SQ EPITH (test code = HPF 5598145268) Lab Interpretation (test Abnormal code = 97722-3) [facility], [id number] 04:21:21 Test Item Value Reference Range Interpretation Comments LIPASE (test code = 4597616607) 69 U/L 0-220 Lab Interpretation (test code = Normal 30424-6) [facility] [id number] 03:30:00 Test Item Value Reference Range Interpretation Comments POCT PREG (test code = 1605) negative On board controls acceptable with C present Line (test code = 3574) Lab Interpretation (test code = Normal 49552-9) [facility]. METABOLIC PANEL (95946)2021-01-19 21:36:57 Test Item Value Reference Range Interpretation Comments NA (test code = 139 mmol/L 135-145 1536948769) K (test code = 4.2 mmol/L 3.5-5.0 2880816609) CL (test code = 106 mmol/L 98-108 5579272171) CO2 TOTAL (test code = 24 mmol/L 23-31 1670040734) AGAP (test code = 2-16 2192723675) BUN (test code = 20 mg/dL 7-23 8281918633) GLUCOSE (test code = 89 mg/dL 70-110 7527624125) CREATININE (test code = 0.73 mg/dL 0.50-1.04 6049975529) TOTAL BILI (test code = 0.6 mg/dL 0.1-1.2 5578899121) CALCIUM (test code = 9.0 mg/dL 8.6-10.6 9623475590) T PROTEIN (test code = 7.5 g/dL 6.3-8.2 7996443236) ALBUMIN (test code = 4.5 g/dL 3.5-5.0 0291400286) ALK PHOS (test code = 87 U/L 34-122 9370347807) ALTv (test code = 24 U/L 5-35 1742-6) AST(SGOT) (test code = 42 U/L 13-40 H 1182721533) eGFR (test code = mL/min/1.73m2 5120989883) ISAMAR (test code = ISAMAR) Association of [...] tests). Lab Interpretation Abnormal (test code = 54896-7) [facility]2021[facility]-20 21:25:51 Test Item Value Reference Range Interpretation Comments APPEARANCE (test code = Hazy Clear A 0793742527) COLOR (test code = Yellow Yellow 8785370039) PH (test code = 4.8-8.0 8054202710) SP GRAVITY (test code = 1.003-1.030 H 2552686297) GLU U QUAL (test code = Normal Normal 6140712793) BLOOD (test code = Negative Negative 4880657558) KETONES (test code = 5 mg/dL Negative A 7713342013) PROTEIN (test code = 30 mg/dL Negative A 2887-8) UROBILIN (test code = 2.0 mg/dL Normal A 0867358531) BILIRUBIN (test code = Negative Negative 4429228686) NITRITE (test code = Negative Negative 5952204403) LEUK SOULEYMANE (test code = Negative Negative 1931021857) RBC/HPF (test code = See_Comment H [Autom ated message] 7477030406) The system coresystems generated this result transmit [place] reference range : 0 - 3 HPF. The refe rence range was not u sed to interpret th is result as normal/abnormal . WBC/HPF (test code = See_Comment [Autom ated message] 9793219190) The system coresystems generated this result transmit [place] reference range : 0 - 5 HPF. The refe rence range was not u sed to interpret th is result as normal/abnormal . BACTERIA (test code = Negative Negative 4821751827) MUCOUS (test code = Marked Negative LPF A 4466652189) SQ EPITH (test code = HPF 4535209548) Lab Interpretation (test Abnormal code = 23817-2) [facility] ABDOMEN PELVIS W [id number] 21:15:43CT Abdomen and Pelvis with intravenous contrast. CLINICAL HISTORY: Acute generalized Abdominal pain.DOSE: Up-to-date CT equipment and radiation dose reduction techniques wereemployed. CTDIvol: 12.82 mGy. DLP: 649 mGy-cm. TECHNIQUE : Contiguous axial imaging from the level of the lung basesthrough the pubic symphysis were performed after the uncomplicatedadministration of Omnipaque contrast material.?Coronal and sagittalreconstructions were obtained. Auto mA and/or iterative reconstruction wereusedto reduce radiation dose. FINDINGS: Comparison made with 01/22/[address] studies. Lower lungs: Clear. No pleural effusion or pericardial effusion. Liver, Gallbladder and Spleen: Livermeasures 15.3 cm and showed no focallesions. Spleen is approximately 10.8 x 4 cm and appears normal.Nocalcified gallstones are seen. Biliary ducts and the pancreatic duct appearof normal size. Peritoneum: ?No free air or free fluid. No lymphadenopathy. Pancreas and Adrenals: ?Unremarkable pancreas and adrenal glands. Kidneys and Ureters: ?No visible calculi in the renal collecting systems. No hydroureter or hydronephrosis. No enhancing kidney lesions detected. Vessels: Normal. Patent hepatic/portalveins and renal veins. Retroperitoneum: No abnormal fluid or lymphadenopathy. Bowel: Diverticulosis of the sigmoid and descending colon noted without anyacute changes. Normal appendix is visualized. Small bowel gas pattern isunremarkable. Bladder and Reproductive Organs: Enlarged uterus with at least one 5.5 cmsize fibroid along the left anterior wall near the fundus. Left ovarycontains 16 mm corpus luteum and the right ovary contains 27 mm hypodenselesion which could be simple cyst.Urinary bladder is collapsed and could not be evaluated. Bones: [...] the pubic symphysis were performed after the unc omplicatedadministration of Omnipaque contrast material. Coronal and sagittalreconstructions were obtained. Auto mA and/or iterative reconstruction wereused to reduce radiation dose.FINDINGS: Comparison made with 01/22/[address] studies.Lower lungs: Clear. No pleural effusion or peric ardial effusion.Liver, Gallbladder and Spleen: Liver measures 15.3 [...] one 5.5 cmsize fibroid along the left anterior wall near the fundus. Left ovarycontains 16 mm corpus luteum and the right ovary contains 27 mm hypodenselesionwhich could be simple cyst.Urinary bladder is collapsed and could not be evaluated.Bones: No acute findings.Soft tissues: 4 cm size supraumbilical midline abdominal wall herniacontaining intra-abdominal fat and vessels without any complications. 2.5cm size umbilical hernia noted containing fat.CONCLUSI ON:1. No acute intra-abdominal or pelvic abnormalities detected.2. Supraumbilical midline abdominal wall hernia as well as umbilical herniawithout any complications.3. Enlarged uterus due to a large 5.5 cm size partially calcified uterinefibroid.[facility]FF 2021-01-19 21:09:09 Test Item Value Reference Range Interpretation Comments WBC (test code = See_Comment [Automated message] 6690-2) The system coresystems generated this result transmitted ref erence range: 4.30 - 1 1.10 10*3/?L. The re ference range was not u sed to interpret this result as normal/abnor mal. RBC (test code = See_Comment [Automated message] 679-8) The system coresystems generated this result transmitted ref erence range: [...] RDW-SD (test code 45.5 fL 39.0-49.9 = 96058-4) RDW-CV (test code 14.0 % 12.0-15.5 = 788-0) PLT (test code = See_Comment [Automated message] 077-3) The system coresystems generated this result transmitted ref erence range: 166 - 35 8 10*3/?L. The re ference range was not u sed to interpret this result as normal/abnor mal. MPV (test code = 11.4 fL 9.5-12.9 36282-5) NRBC/100 WBC (test See_Comment [Automat ed message] code = 8233806234) The syste [employer] which generated this result transmitted ref erence range: 0.0 - 10 .0 /100 WBCs. The refer ence range was not u sed to interpret this result as normal/abnor mal. NRBC x10^3 (test <0.01 See_Comment [Automated message] code = 4090306657) The syste m which generated this result transmitted ref erence range: 10*3/?L. The reference range was not used to interpr et this result as normal/abnormal . GRAN MAT (NEUT) % 68.5 % (test code = 770-8) IMM GRAN % (test 0.40 % code = 7340539080) LYMPH % (test code 23.1 % = 736-9) MONO % (test code 6.1 % = 5905-5) EOS % (test code = 1.2 % 713-8) BASO % (test code 0.7 % = 706-2) GRAN MAT 5.18 10*3/uL 1.88-7.09 x10^3(ANC) (test code = 2428731184) IMM GRAN x10^3 0.03 10*3/uL 0.00-0.06 (test code = 3573135841) LYMPH x10^3 (test 1.75 10*3/uL 1.32-3.29 code = 731-0) MONO x10^3 (test 0.46 10*3/uL 0.33-0.92 code = 742-7) EOS x10^3 (test 0.09 10*3/uL 0.03-0.39 code = 711-2) BASO x10^3 (test 0.05 10*3/uL 0.01-0.07 code = 704-7) [facility] [id number] 20:54:00 Test Item Value Reference Range Interpretation Comments POCT PREG (test code = 1605) neg On board controls acceptable with yes C Line (test code = 3574) POCT PREG LOT # (test code = 3575) [id number] POCT PREG TEST DATE (test 08/31/2022 code = 3576) Lab Interpretation (test code = Normal 39093-1) [facility]2021[facility]10 01:31:00 Test Item Value Reference Range Interpretation Comments APPEARANCE (test code = Clear Clear 0729750169) COLOR (test code = Yellow Yellow 6483125663) PH (test code = 4.8-8.0 7934537593) SP GRAVITY (test code = 1.003-1.030 7283280444) GLU U QUAL (test code = Normal Normal 4114762306) BLOOD (test code = Negative Negative 7018356665) KETONES (test code = 5 mg/dL Negative A 5559382411) PROTEIN (test code = Negative Negative 2887-8) UROBILIN (test code = 2.0 mg/dL Normal A 1891991786) BILIRUBIN (test code = Negative Negative 9026907004) NITRITE (test code = Negative Negative 9535894776) LEUK SOULEYMANE (test code = Negative Negative 8534274548) RBC/HPF (test code = See_Comment [Autom ated message] 4866671972) The system coresystems generated this result transmit [place] reference range : 0 - 3 HPF. The refe rence range was not u sed to interpret th is result as normal/abnormal . WBC/HPF (test code = See_Comment [Autom ated message] 3824909274) The system [employer]ystems generated this result transmit [place] reference range : 0 - 5 HPF. The refe rence range was not u sed to interpret th is result as normal/abnormal . BACTERIA (test code = Negative Negative 2548083268) MUCOUS (test code = Slight Negative LPF A 6502777777) SQ EPITH (test code = <1 HPF 4945149444) Lab Interpretation (test Abnormal code = 28143-9) [facility] KNEE <3 VW [id number] 21:49:55 Narrowing on right knee 4mm, no fractureUnThe [facility]"
--- NOTE | 2022-06-01 19:38 | RAD REPORT ---
EXAM DESCRIPTION: RAD - Shoulder Right 2 View - 06/01/2022 7:29 pm CLINICAL HISTORY: Right shoulder pain FINDINGS: No fracture or dislocation is seen. Mild osteoarthritis AC joint
--- NOTE | 2022-06-01 19:40 | RAD REPORT ---
EXAM DESCRIPTION: RAD - Knee Right 3 View - 06/01/2022 7:29 pm CLINICAL HISTORY: Right knee pain FINDINGS: No fracture or dislocation is seen. No bone or joint abnormality noted
--- NOTE | 2022-06-01 19:55 | EDPHYS ---
Physician Documentation [facility] Name: Kristina Christensen Age: 37 yrs Sex: Female : 1985 Arrival Date: 06/01/2022 Time: 16:59 Bed Waiting Private MD: ED Physician Fly Basurto HPI: 06/02 00:15 This 37 yrs old Black Female presents to ER via Wheelchair with complaints of Arm Pain, kb Knee Pain. 00:15 The patient or guardian complains of decreased range of motion, pain, tenderness. The kb complaints affect the anterior aspect of right shoulder. Context: The problem was sustained at home, resulted from unknown cause. Treatment prior to arrival includes: no previous treatment. Modifying factors: The symptoms are alleviated by nothing. the symptoms are aggravated by movement. Associated signs and symptoms: Pertinent positives: decreased range of motion, pain. Severity of symptoms: At their worst the symptoms were moderate, in the emergency department the symptoms are unchanged. The patient has not experienced similar symptoms in the past. The patient has not recently seen a physician. Patient reports right shoulder pain for a few months and right knee pain for a few years. Denies any injury. States pain has been getting worse.. 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 - Social history:: Smoking status: Reported history of juuling and/or vaping. ROS: 06/02 00:14 Constitutional: Negative for fever, chills, and weight loss. kb MS/extremity: Positive for pain, tenderness, of the right knee and anterior aspect of right shoulder. All other systems are negative. Exam: 00:14 Constitutional: This is a well developed, well nourished patient who is awake, alert, kb and in no acute distress. Head/Face: Normocephalic, atraumatic. ENT: Moist Mucous membranes Cardiovascular: Regular rate and rhythm with a normal S1 and S2. No gallops, murmurs, or rubs. No pulse deficits. Respiratory: Respirations even and unlabored. No increased work of breathing. Talking in full sentences Abdomen/GI: Soft, non-tender. No distention Skin: Warm, dry with normal turgor. Normal color. Neuro: Awake and alert, GCS 15, oriented to person, place, time, and situation. Moves all extremities. Normal gait. Psych: Awake, alert, with orientation to person, place and time. Behavior, mood, and affect are within normal limits. 00:14 Musculoskeletal/extremity: Extremities: grossly normal except: noted in the anterior aspect of right shoulder and right knee: decreased ROM, pain, tenderness, ROM: limited active range of motion due to pain, in the anterior aspect of right shoulder and right knee, Circulation is intact in all extremities. Sensation intact. Weight bearing: able to fully bear weight. Vital Signs: 06/01 17:31 Pulse 82; Resp 16; Temp 98.8; Pulse Ox 100% ; Weight 102.06 kg; Height 5 ft. 4 in. vg1 (162.56 cm); Pain 8/10; 17:33 BP 136 / 93; vg1 17:31 Body Mass Index 38.62 (102.06 kg, 162.56 cm) vg1 MDM: 17:30 Patient medically screened. kb 19:53 Data reviewed: vital signs, nurses notes. Data interpreted: Pulse oximetry: on room air kb is 100 %. Interpretation: normal. Counseling: I had a detailed discussion with the patient and/or guardian regarding: the historical points, exam findings, and any diagnostic results supporting the discharge/admit diagnosis, radiology results, the need for outpatient follow up, a orthopedic surgeon, to return to the emergency department if symptoms worsen or persist or if there are any questions or concerns that arise at home. 06/01 17:30 Order name: Shoulder Right (2 View) XRAY; Complete Time: 19:40 kb 06/01 17:30 Order name: Knee Right 3 View XRAY; Complete Time: 19:53 kb Administered Medications: No medications were administered Disposition: 06/02 10:10 Co-signature as Attending Physician, Fly Basurto DO I was immediately available on-site ms3 in the emergency department for consultation in the care of the patient.. Disposition Summary: 06/01/22 19:54 Discharge Ordered Location: Home kb Condition: Stable kb Diagnosis - Pain in right shoulder kb - Pain in right knee kb Followup: kb - With: Emergency Department - When: As needed - Reason: Worsening of condition Followup: kb - With: Private Physician - When: 2 - 3 days - Reason: Recheck today's complaints, Continuance of care, Re-evaluation by your physician Discharge Instructions: - Discharge Summary Sheet kb - Musculoskeletal Pain kb Forms: - Medication Reconciliation Form kb - Thank You Letter kb - Antibiotic Education kb - Prescription Opioid Use kb Prescriptions: - Diclofenac Sodium 75 mg Oral tablet,delayed release (DR/EC) - take 1 tablet by ORAL route 2 times per day As needed; 30 tablet; Refills: 0, kb Product Selection Permitted Signatures: Dispatcher [employer] Destiny Child, MILLY-C MILLY-Coreen Ridley, RN RN vg1 Fly Basurto DO DO ms3
--- NOTE | 2022-06-01 19:55 | ER ---
Nurse's Notes [facility] Name: Kristina Christensen Age: 37 yrs Sex: Female : 1985 Arrival Date: 06/01/2022 Time: 16:59 Bed Waiting Private MD: Diagnosis: Pain in right shoulder;Pain in right knee Presentation: 06/01 17:31 Chief complaint: Patient states: Right arm/Right shoulder pain, states unable to move. vg1 Also states Right knee pain, if kept still for too long becomes still. Stated ROM become limited at times. Coronavirus screen: Vaccine status: Patient reports receiving the 2nd dose of the covid vaccine. Client denies travel out of the [place] in the last 14 days. Ebola Screen: Patient denies exposure to infectious person. Patient denies travel to an Ebola-affected area in the 21 days before illness onset. Initial Sepsis Screen: Does the patient meet any 2 criteria? No. Patient's initial sepsis screen is negative. Does the patient have a suspected source of infection? No. Patient's initial sepsis screen is negative. Risk Assessment: Do you want to hurt yourself or someone else? Patient reports no desire to harm self or others. Onset of symptoms was March 2022. 17:31 Method Of Arrival: Wheelchair vg1 17:31 Acuity: GAURAV 4 vg1 Triage Assessment: 17:33 General: Appears in no apparent distress. uncomfortable, Behavior is calm, cooperative. vg1 Pain: Complains of pain in right arm, right shoulder, right knee. Musculoskeletal: Denies numbness in, right arm, right leg. 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 - Social history:: Smoking status: Reported history of juuling and/or vaping. Vital Signs: 17:31 Pulse 82; Resp 16; Temp 98.8; Pulse Ox 100% ; Weight 102.06 kg; Height 5 ft. 4 in. vg1 (162.56 cm); Pain 8/10; 17:33 BP 136 / 93; vg1 17:31 Body Mass Index 38.62 (102.06 kg, 162.56 cm) vg1 ED Course: 16:59 Patient arrived in ED. rg4 17:07 Destiny cAharya [facility]C [facility] kb 17:07 Fly Basurto DO is Attending Physician. kb 17:33 Triage completed. vg1 17:33 Arm band placed on. vg1 19:31 Shoulder Right (2 View) XRAY In Process Unspecified. EDMS 19:31 Knee Right 3 View XRAY In Process Unspecified. EDMS Administered Medications: No medications were administered Outcome: 19:54 Discharge ordered by MD. kb 19:57 Discharged to home via wheelchair, with family. 19:57 Condition: stable 19:57 Discharge instructions given to patient, family, Instructed on discharge instructions, follow up and referral plans. medication usage, Demonstrated understanding of instructions, follow-up care, medications, Prescriptions given X 1. 20:42 Patient left the ED. hb Signatures: Dispatcher [employer] EDMS Destiny Acharya FNP-C FNP-Ckb Baxter, Heather, RN RN Tracie Moya rg4 Coreen Andrews, RN RN vg1
[2022-06-01 20:53] VITALS: TEMP 98.8; O2SAT 100
[2022-06-01 20:55] VITALS: BP 136/93
== END 2022-06-01 20:42 | disposition home or self-care (01) ==
LOC: ER 16:53
DX: M25.511 Pain in right shoulder (principal); M25.561 Pain in right knee; I10 Essential (primary) hypertension; Z85.41 Personal history of malignant neoplasm of cervix uteri; Z88.5 Allergy status to narcotic agent

== ENCOUNTER 2022-06-09 16:04 | Emergency (ER) | payer OTHER ==
--- OUTSIDE RECORDS SUMMARY | 2022-06-09 16:13 | XMS REPORT | Continuity of Care Document ---
:1985 Author Organization [facility] t Address [address] [place] [address] Care Team Providers Name Role Phone MARVIN Foley [facility] Primary Care P hysician Unavailable Jose Harris Attending Clinician Unavailable KARLEE GOMEZ Attending Clinician Unavailable Karlee Gomez DO Attending Clinician Doctor Unassigned, [place] Attending Clinician Unavailable Nohemi Phillip Attending Clinician Mony Ortega RN Attending Clinician Unavailable TASHA DE OLIVEIRA Attending Clinician Unavailable KILEY STROUD Attending Clinician Unavailable KEYSHA VIVEROS Attending Clinician Unavailable Tasha De Oliveira MD Attending Clinician Riri Cerda Attending Clinician Sam Dodson Attending Clinician Fredrick Mina DO Attending Clinician Joaquín Kim MD Attending Clinician JOAQUÍN KIM Attending Clinician Unavailable MAIA SHRESTHA Attending Clinician Unavailable Maia Sullivan Attending Clinician KNOW, DOES_NOT Admitting Clinician Unavailable Physician, No Primary or Family Admitting Clinician Unavaila ble Payers Payer Name Policy Type Policy Number Effective Date Expiration Date [place] [facility] [id number] 2020 HEALTH 00:00:00 [place]ICAID OF [place] [id number] 2019 00:00:00 MEDICAID [place] PENDING 2019 PENDING [...] Morbid Morbid Disease Active Univers obesity obesity - ity of with body with body [place] mass index mass index 00 Me dical of of Branch 40.0-49.9 40.0-49.9 Morbid Morbid Disease Active Univers obesity obesity - ity of with body with body 00:00: [...] Moderate Disease Active Unive rs single single 02-01 ity of current current 00:00: [place] episode [...] Allergie 2-15 [place] s 00:00: d 00 Medical [place] Tramadol Propensi Active Hives 2016-10 Univer s ty to 0-09 ity of adverse 00:00: [place] reaction 00 Medical s Branch TRAMADOL DRUG Active Hives 2016-10 Univers INGREDI 0-09 ity of 00:00: [place] 00 Medical Branch Social History Social Habit Start Date Stop Date Quantity Comments Source History SDOH University o f Alcohol Frequency [place] [facility] edical Branch History SDOH University o f Alcohol Std [place] [facility] Drinks Branch History SDOH University o f Alcohol Binge [place] [facility] al Branch Exposure to Not sure University of SARS-CoV-2 [facility] (event) Branch Alcohol intake 2021-10-31 2021-10-31 Current drinker Unive rsity of 00:00:00 00:00:00 of alcohol [place] [facility] (finding) Branch Tobacco use and 2021-01-27 2021-01-27 Never used Universit y of exposure 00:00:00 00:00:00 [facility] Alcohol Comment 2018-01-31 2018-01-31 social Universit y of 00:00:00 00:00:00 [facility] Sex [birth year] Universit y of 00:00:00 00:00:00 [facility] Smoking Status Start Date Stop Date Source Former smoker 2021-01-27 00:00:00 2021-01-27 00:00:00 [facility] Never smoker University [facility] xas [facility] Branch Medications Ordered Filled Start Stop Current [...] 10/31/21 at 1345, OSVALDO amoxicillin 2021- No [id number] 875mg Take 1 Univers 875 mg 10-3110 tablet by ity of tablet 00:00: 05:59 mouth 2 [place] 00 :00 (two) Medical times [place] daily for 10 days. iopamidol 2020- No [id number] 100mL 100 mL, Univers (ISOVUE 06-19 Intravenou ity o f 370-500 mL) 00:00: 00:00 s, ONCE, 1 [place] injection 00 :00 dose, On Medica l 100 mL Fri Branch 06/18/21 at 1900, Routine iopamidol 2020- No [id number] 100mL 100 mL, Univers (ISOVUE 06-19 Intravenou [...] xas mg 00 :00 dose, On Medical 06/18/21 at 1800, STAT FENTanyl PF 2020- [...] On Branch Mon06/18/21 at 1700, STAT ondansetron 2020-2020- No 4mg 4 mg, Slow Univers (ZOFRAN [...] On Branch Mon06/18/21 at 1700, STAT ondansetron 2020-0 Yes [id number] 4mg Take 1 Univers (ZOFRAN 06-18 tablet by ity of ODT) 4 mg 00:00: mouth [place] disintegrat 00 every 8 Medic al ing tablet (eight) Branch hours as needed for Nausea and Vomiting (N/V). acetaminoph 1-0 Yes [id number] 1{tbl} Take 1 Un dani en-codeine 9-17 tablet by ity of 300-30 mg 00:00: mouth [place] tablet 00 every 4 Medical (four) Branch hours as needed for Pain (scale 7-10). Indication s: acute pain ondansetron 2020-0 Yes [id number] 4mg Take 1 Univers (ZOFRAN 9-17 tablet by ity of ODT) 4 mg 00:00: mouth [place] disintegrat 00 every 8 Medic al ing tablet (eight) Branch hours as needed for Nausea and Vomiting (N/V). acetaminoph 1-0 Yes [id number] 1{tbl} Take 1 Un dani en-codeine 9-17 tablet by ity of 300-30 mg 00:00: mouth [place] tablet 00 every 4 Medical (four) Branch hours as needed for Pain (scale 7-10). Indication s: acute pain ondansetron 2020-0 Yes [id number] 4mg Take 1 Univers (ZOFRAN 9-17 tablet [...] (scale 7-10). Indication s: acute pain ondansetron 1-0 Yes [id number] 4mg Take 1 Univers (ZOFRAN 9-17 tablet by ity of ODT) 4 mg 00:00: mouth [place] disintegrat 00 every 8 Medic al ing tablet (eight) Branch hours as needed for Nausea and Vomiting (N/V). acetaminoph 2021-0 Yes [id number] 1{tbl} Take 1 Un dani en-codeine 9-17 tablet by ity of 300-30 mg 00:00: mouth [place] tablet 00 every 4 Medical (four) Branch hours as needed for Pain (scale 7-10). Indication s: acute pain levonorgest 2021-0 2021- No [id number] 1{devic Univers reL 6 06-28 e} ity of (MIRENA) 15:45: 14:35 [place] IUD 1 00 :00 [employer] Administrator Branch levonorgest 2020- No [id number] 1{devic 1 Device, Univers reL 6 06-28 e} Intrauteri ity of (MIRENA) 15:45: 14:35 ne, ONCE, [place] as IUD 1 00 :00 1 dose, Clinical Trials Systems Administrator [facility] 03/29/21 at 1045, Routine levonorgest 2020- No [id number] 1{devic Univers reL 03-29- e} ity of (MIRENA) 15:45: 14:35 [place] IUD 1 00 :00 [employer] Trials Systems Administrator Branch levonorgest 2020- No [id number] 1{devic 1 Device, Univers reL 03-29- e} Intrauteri ity of (MIRENA) 15:45: 14:35 ne, ONCE, [place] IUD 1 00 :00 1 dose, Clinical Trials Systems Administrator [facility] 03/29/21 at 1045, Routine miSOPROStoL Yes [id number] 200ug Take 1 Univers 200 mcg 6-09 tablet by ity of tablet 00:00: [facility] 00 SEE-INSTRU Medical CTIONS. Branch miSOPROStoL Yes [id number] 200ug Take 1 Univers 200 mcg 6-09 tablet by ity of tablet 00:00: [facility] 00 SEE-INSTRU Medical CTIONS. Branch miSOPROStoL Yes [id number] 200ug Take 1 Univers 200 mcg 6-09 tablet by ity of tablet 00:00: [facility] 00 SEE-INSTRU Medical CTIONS. Branch miSOPROStoL 2020- No [id number] 200ug Take 1 Univers 200 mcg 6-09 - tablet by ity of tablet 00:00: 00:00 [facility] 00 :00 SEE-INSTRU Medical CTIONS. Branch miSOPROStoL 2020- No [id number] 200ug Take 1 Univers 200 mcg 6-09 -28 tablet by ity of tablet 00:00: 00:00 [facility] 00 :00 SEE-INSTRU Medical CTIONS. Branch ketorolac 2020- No 30mg 30 mg, Unive rs (TORADOL) 02-22 Slow IV ity of injection 07:30: 06:33 Push, [place] 30 mg 00 :00 ONCE, 1 Medical dose, [facility] 02/22/21 at 0230, OSVALDO
Fa culty member approving Restricted medication : Riri ISAACS RONI KCL 2020- No 20meq 20 mEq, IV Unive rs (POTASSIUM 02-22 Piggyback, it y of CHLORIDE) 06:30: 05:53 ONCE, 1 [place] 20 mEq in 00 :00 dose, Mon Medic al NaCl 0.9% 02/22/21 at [facility] ch (NS) 100 mL 0130, 100 piggyback mL KCL 2020- No 40meq 40 mEq, Univers (KLOR-CON 02-22 Oral, ity of M20) tablet 06:30: 05:45 ONCE, 1 [place] 40 mEq 00 :00 dose, Mon Medical 02/22/21 at [place] 0130, Routine acetaminoph 2020- No 1000mg 1,000 mg, Univers en 02-22 Oral, ity of (TYLENOL) 05:00: 04:02 ONCE, 1 [place] tablet 00 :00 dose, [facility] Medical 1,000 mg 02/22/21 at [facility] h 0000, OSVALDO ondansetron 2020- No 4mg [...] 1,000 mL 00 :00 IV Medical Infusion, [place] ONCE, 1 dose, [facility] 02/22/21 at 0000, STAT iopamidol 2020- No [id number] 120mL 120 mL, Univers (ISOVUE 5-24 05-24 Intravenou ity o f 370-500 mL) 04:08: 04:11 s, ONCE, 1 [place] injection 00 :00 dose, Sun Medic al 120 mL 02/21/21 at Branch 2315, Routine polyethylen 2020- No [id number] 17g Take 17 g Univers e glycol 02-22-29 by mouth ity of 3350 00:00: 04:59 daily for [place] (MIRALAX) 00 :00 4 days. Medical 17 [place] gram/dose powder polyethylen 2020- No [id number] 17g Take 17 g Univers e glycol 02-22-29 by mouth ity of 3350 00:00: 04:59 daily for [place] (MIRALAX) 00 :00 4 days. Medical 17 [place] gram/dose powder polyethylen 2020- No [id number] 17g Take 17 g Univers e glycol 02-22-29 by mouth ity of 3350 00:00: 04:59 daily for [place] (MIRALAX) 00 :00 4 days. Medical 17 [place] gram/dose powder polyethylen 2020- No [id number] 17g Take 17 g Univers e glycol 02-22-29 by mouth ity of 3350 00:00: 04:59 daily for [place] (MIRALAX) 00 :00 4 days. Medical 17 [place] gram/dose powder miSOPROStoL Yes [id number] 200ug Take 1 Univers 200 mcg 4-28 tablet by ity of tablet 00:00: mouth SEE-INSTRU Medical CTIONS. Branch Take one tab the night before and one tab the morning of procedure miSOPROStoL Yes [id number] 200ug Take 1 Univers 200 mcg 4-28 tablet by ity of tablet 00:00: mouth SEE-INSTRU Medical CTIONS. Branch Take one tab the night before and one tab the morning of procedure miSOPROStoL Yes [id number] 200ug Take 1 Univers 200 mcg 4-28 tablet by ity of tablet 00:00: mouth SEE-INSTRU Medical CTIONS. Branch Take one tab the night before and one tab the morning of procedure miSOPROStoL 2020- No [id number] 200ug Take 1 Univers 200 mcg 4-28 05-26 tablet by ity of tablet 00:00: 00:00 mouth [place] 00 :00 SEE-INSTRU Medical CTIONS. Branch Take one tab the night before and one tab the morning of procedure miSOPROStoL 2020- No [id number] 200ug Take 1 Univers 200 mcg 4-28 05-26 tablet by ity of tablet 00:00: 00:00 mouth [place] 00 :00 SEE-INSTRU Medical CTIONS. Branch Take one tab the night before and one tab the morning of procedure miSOPROStoL 2020- No [id number] 200ug Take 1 Univers 200 mcg 4-28 [...] 00 :00 ONCE, 1 Medical dose, Tue Branch 01/19/21 at 1815, OSVALDO
Fa culty member approving Restricted medication : SAM EVANS ondansetron 2020- No 4mg 4 mg, Slow Univers (ZOFRAN 01-19 IV Push, ity of (PF)) 21:30: 21:29 ONCE, 1 [place] injection 4 00 :00 dose, Tue Med ical mg 01/19/21 at [place] 1630, OSVALDO iohexol 2020- No [id number] 120mL 120 mL, U nivers (OMNIPAQUE 01-1920 Intravenou it y of 350 21:15: 21:15 s, ONCE, 1 [place] BULK-150 00 :00 dose, Tue Medica l mL) 01/19/21 at [place] injection 1615, 120 mL Routine ibuprofen Yes [id number] 800mg Take 1 U nivers 800 mg 4-20 tablet by ity of tablet 00:00: mouth [place] 00 every 8 Medical (eight) Branch hours as needed for Pain (scale 4-6). Take with food ibuprofen Yes [id number] 800mg Take 1 U nivers 800 mg 4-20 tablet by ity of tablet 00:00: mouth [place] 00 every 8 Medical (eight) Branch hours as needed for Pain (scale 4-6). Take with food ibuprofen 2021-0 Yes [id number] 800mg Take 1 U nivers 800 mg 4-20 tablet by ity of tablet 00:00: mouth [place] 00 every 8 Medical (eight) Branch hours as needed for Pain (scale 4-6). Take with food ibuprofen 2021-0 Yes [id number] 800mg Take 1 U nivers 800 mg 4-20 tablet by ity of tablet 00:00: mouth [place] 00 every 8 Medical (eight) Branch hours as needed for Pain (scale 4-6). Take with food ibuprofen 1-0 Yes [id number] 800mg Take 1 U nivers 800 mg 4-20 tablet by ity of tablet 00:00: mouth [place] 00 every 8 Medical (eight) Branch hours as needed for Pain (scale 4-6). Take with food ibuprofen 1-0 Yes [id number] 800mg Take 1 U nivers 800 mg 4-20 tablet by ity of tablet 00:00: mouth [place] 00 every 8 Medical (eight) Branch hours as needed for Pain (scale 4-6). Take with food ibuprofen 1-0 Yes [id number] 800mg Take 1 U nivers 800 mg 4-20 tablet by ity of tablet 00:00: mouth [place] 00 every 8 Medical (eight) Branch hours as needed for Pain (scale 4-6). Take with food ibuprofen 2021-0 Yes [id number] 800mg Take 1 U nivers 800 mg 4-20 tablet by ity of tablet 00:00: mouth [place] 00 every 8 Medical (eight) Branch hours as needed for Pain (scale 4-6). Take with food ibuprofen 2021-0 Yes [id number] 800mg Take 1 U nivers 800 mg 4-20 tablet by ity of tablet 00:00: mouth [place] 00 every 8 Medical (eight) Branch hours as needed for Pain (scale 4-6). Take with food ibuprofen 2021-0 Yes [id number] 800mg Take 1 U nivers 800 mg 4-20 tablet by ity of tablet 00:00: mouth [place] 00 every 8 Medical (eight) Branch hours as needed for Pain (scale 4-6). Take with food ibuprofen 2021-0 Yes [id number] 800mg Take 1 U nivers 800 mg 4-20 tablet by ity of tablet 00:00: mouth [place] 00 every 8 Medical (eight) Branch hours as needed for Pain (scale 4-6). Take with food ibuprofen 1-0 Yes [id number] 800mg Take 1 U nivers 800 mg 4-20 tablet by ity of tablet 00:00: mouth [place] 00 every 8 Medical (eight) Branch hours as needed for Pain (scale 4-6). Take with food ibuprofen 2020-0 Yes [id number] 800mg Take 1 U nivers 800 mg 4-20 tablet by ity of tablet 00:00: mouth [place] 00 every 8 Medical (eight) Branch hours as needed for Pain (scale 4-6). Take with food ibuprofen 2020-0 Yes [id number] 800mg Take 1 U nivers 800 mg 4-20 tablet by ity of tablet 00:00: mouth [place] 00 every 8 Medical (eight) Branch hours as needed for Pain (scale 4-6). Take with food ibuprofen 2020-0 Yes [id number] 800mg Take 1 U nivers 800 mg 4-20 tablet by ity of tablet 00:00: mouth [place] 00 every 8 Medical (eight) Branch hours as needed for Pain (scale 4-6). Take with food ibuprofen 2020-0 Yes [id number] 800mg Take 1 U nivers 800 mg 4-20 tablet by ity of tablet 00:00: mouth [place] 00 every 8 Medical (eight) Branch hours as needed for Pain (scale 4-6). Take with food ibuprofen 1-0 Yes [id number] 800mg Take 1 U nivers 800 mg 4-20 tablet by ity of tablet 00:00: mouth [place] 00 every 8 Medical (eight) Branch hours as needed for Pain (scale 4-6). Take with food ibuprofen 1-0 Yes [id number] 800mg Take 1 U nivers 800 mg 4-20 tablet by ity of tablet 00:00: mouth [place] 00 every 8 Medical (eight) Branch hours as needed for Pain (scale 4-6). Take with food ibuprofen 2021-0 Yes [id number] 800mg Take 1 U nivers 800 mg 4-20 tablet by ity of tablet 00:00: mouth [place] 00 every 8 Medical (eight) Branch hours as needed for Pain (scale 4-6). Take with food ibuprofen 2020-0 Yes [id number] 800mg Take 1 U nivers 800 mg 4-20 tablet by ity of tablet 00:00: mouth [place] 00 every 8 Medical (eight) Branch hours as needed for Pain (scale 4-6). Take with food ibuprofen 2020-0 Yes [id number] 800mg Take 1 U nivers 800 mg 4-20 tablet by ity of tablet 00:00: mouth [place] 00 every 8 Medical (eight) Branch hours as needed for Pain (scale 4-6). Take with food ibuprofen 2020-0 Yes [id number] 800mg Take 1 U nivers 800 mg 4-20 tablet by ity of tablet 00:00: mouth [place] 00 every 8 Medical (eight) Branch hours as needed for Pain (scale 4-6). Take with food ibuprofen 2020-0 Yes [id number] 800mg Take 1 U nivers 800 mg 4-20 tablet by ity of tablet 00:00: mouth [place] 00 every 8 Medical (eight) Branch hours as needed for Pain (scale 4-6). Take with food ibuprofen 2020-0 Yes [id number] 800mg Take 1 U nivers 800 mg 4-20 tablet by ity of tablet 00:00: mouth [place] 00 every 8 Medical (eight) Branch hours as needed for Pain (scale 4-6). Take with food ibuprofen 2020-0 Yes [id number] 800mg Take 1 U nivers 800 mg [...] 7 days. Indication s: acute pain cephALEXin 2020-0 Yes 500mg Take 500 Un dani 500 mg 4-14 mg by ity of capsule 00:00: mouth 2 [place] 00 (two) Medical times Branch daily. cephALEXin 2020-0 Yes 500mg Take 500 Un dani 500 mg 4-14 mg by ity of capsule 00:00: mouth 2 [place] 00 (two) Medical times Branch daily. cephALEXin 2021-0 Yes 500mg Take 500 Un dani 500 mg 4-14 mg by ity of capsule 00:00: mouth (two) Medical times Branch daily. cephALEXin 2021-0 2021- No 500mg Take 500 U nivers 500 mg 4-14 05-26 mg by ity of capsule 00:00: 00:00 mouth 2 [place] 00 :00 (two) Medical times Branch daily. cephALEXin 2021-0 2021- No 500mg Take 500 U nivers 500 mg 4-14 05-26 mg by ity of capsule 00:00: 00:00 mouth 2 [place] 00 :00 (two) Medical times Branch daily. cephALEXin 2021-0 2021- No 500mg Take 500 U nivers 500 mg 4-14 05-26 mg by ity of capsule 00:00: 00:00 mouth 2 [place] 00 : (two) Medical times Branch daily. diclofenac 2020-0 Yes 75mg Take 1 Unive rs 75 mg EC 3-26 tablet by ity of tablet 00:00: mouth ([facility]) Medical times Branch daily with meals. diclofenac 2020-0 Yes 75mg Take 1 Unive rs 75 mg EC 3-26 tablet by ity of tablet 00:00: mouth [place] ([facility]) Medical times Branch daily with meals. diclofenac 2020-0 Yes 75mg Take 1 Unive rs 75 mg EC 3-26 tablet by ity of tablet 00:00: mouth [place] ([facility]) Medical times Branch daily with meals. diclofenac 2020-0 Yes 75mg Take 1 Unive rs 75 mg EC 3-26 tablet by ity of tablet 00:00: mouth [place] (two) Medical times Branch daily with meals. diclofenac 2020-0 Yes 75mg Take 1 Unive rs 75 mg EC 3-26 tablet by ity of tablet 00:00: mouth [place] (two) Medical times Branch daily with meals. diclofenac 2020-0 Yes 75mg Take 1 Unive rs 75 mg EC 3-26 tablet by ity of tablet 00:00: mouth [place] (two) Medical times Branch daily with meals. diclofenac 2020-0 Yes 75mg Take 1 Unive rs 75 mg EC 3-26 tablet by ity of tablet 00:00: mouth [place] (two) Medical times Branch daily with meals. diclofenac 2020-0 Yes 75mg Take 1 Unive rs 75 mg EC 3-26 tablet by ity of tablet 00:00: mouth (two) Medical times Branch daily with meals. diclofenac 2020-0 Yes 75mg Take 1 Unive rs 75 mg EC 3-26 tablet by ity of tablet 00:00: mouth 2 (two) Medical times Branch daily with meals. diclofenac 2020-0 Yes 75mg Take 1 Unive rs 75 mg EC 3-26 tablet by ity of tablet 00:00: mouth 2 (two) Medical times Branch daily with meals. [...] Branch daily with meals. cloNIDine 2019-0 Yes [id number] .1mg Take 1 Un dani 0.1 mg 7-24 tablet by ity of tablet 00:00: mouth (two) Medical times Branch daily. cloNIDine 2019-0 Yes [id number] .1mg Take 1 Un dani 0.1 mg 7-24 tablet by ity of tablet 00:00: mouth (two) Medical times Branch daily. cloNIDine 2019-0 Yes [id number] .1mg Take 1 Un dani 0.1 mg 7-24 tablet by ity of tablet 00:00: mouth (two) Medical times Branch daily. cloNIDine 2019-0 Yes [id number] .1mg Take 1 Un dani 0.1 mg 7-24 tablet by ity of tablet 00:00: mouth (two) Medical times Branch daily. cloNIDine 2019-0 Yes [id number] .1mg Take 1 Un dani 0.1 mg 7-24 tablet by ity of tablet 00:00: mouth 2 (two) Medical times Branch daily. cloNIDine 2019-0 Yes [id number] .1mg Take 1 Un dani 0.1 mg 7-24 tablet by ity of tablet 00:00: mouth 2 (two) Medical times Branch daily. cloNIDine 2019-0 Yes [id number] .1mg Take 1 Un dani 0.1 mg 7-24 tablet by ity of tablet 00:00: mouth (two) Medical times Branch daily. cloNIDine 2019-0 Yes [id number] .1mg Take 1 Un dani 0.1 mg 7-24 tablet by ity of tablet 00:00: mouth (two) Medical times Branch daily. cloNIDine 2019-0 Yes [id number] .1mg Take 1 Un dani 0.1 mg 7-24 tablet by ity of tablet 00:00: mouth 2 (two) Medical times Branch daily. cloNIDine 2019-0 Yes [id number] .1mg Take 1 Un dani 0.1 mg 7-24 tablet by ity of tablet 00:00: mouth (two) Medical times Branch daily. cloNIDine 2019-0 Yes [id number] .1mg Take 1 Un dani 0.1 mg 7-24 tablet by ity of tablet 00:00: mouth (two) Medical times Branch daily. cloNIDine 2019-0 Yes [id number] .1mg Take 1 Un dani 0.1 mg 7-24 tablet by ity of tablet 00:00: mouth (two) Medical times Branch daily. cloNIDine 2019-0 Yes [id number] .1mg Take 1 Un dani 0.1 mg 7-24 tablet by ity of tablet 00:00: mouth (two) Medical times Branch daily. cloNIDine 2019-0 Yes [id number] .1mg Take 1 Un dani 0.1 mg 7-24 tablet by ity of tablet 00:00: mouth (two) Medical times Branch daily. cloNIDine 2019-0 Yes [id number] .1mg Take 1 Un dani 0.1 mg 7-24 tablet by ity of tablet 00:00: mouth (two) Medical times Branch daily. cloNIDine 2019-0 Yes [id number] .1mg Take 1 Un dani 0.1 mg 7-24 tablet by ity of tablet 00:00: mouth 2 (two) Medical times Branch daily. cloNIDine 2019-0 Yes [id number] .1mg Take 1 Un dani 0.1 mg 7-24 tablet by ity of tablet 00:00: mouth (two) Medical times Branch daily. cloNIDine 2019-0 Yes [id number] .1mg Take 1 Un dani 0.1 mg 7-24 tablet by ity of tablet 00:00: mouth (two) Medical times Branch daily. cloNIDine 2019-0 Yes [id number] .1mg Take 1 Un dani 0.1 mg 7-24 tablet by ity of tablet 00:00: mouth (two) Medical times Branch daily. cloNIDine 2019-0 Yes [id number] .1mg Take 1 Un dani 0.1 mg 7-24 tablet by ity of tablet 00:00: mouth (two) Medical times Branch daily. cloNIDine 2019-0 Yes [id number] .1mg Take 1 Un dani 0.1 mg 7-24 tablet by ity of tablet 00:00: mouth (two) Medical times Branch daily. cloNIDine 2019-0 Yes [id number] .1mg Take 1 Un dani 0.1 mg 7-24 tablet by ity of tablet 00:00: mouth (two) Medical times Branch daily. cloNIDine 2019-0 Yes [id number] .1mg Take 1 Un dani 0.1 mg 7-24 tablet by ity of tablet 00:00: mouth (two) Medical times Branch daily. cloNIDine 2019-0 Yes [id number] .1mg Take 1 Un dani 0.1 mg 7-24 tablet by ity of tablet 00:00: mouth (two) Medical times Branch daily. cloNIDine 2019-0 Yes [id number] .1mg Take 1 Un dani 0.1 mg 7-24 tablet by ity of tablet 00:00: mouth (two) Medical times Branch daily. cloNIDine 2019-0 Yes [id number] .1mg Take 1 Un dani 0.1 mg 7-24 tablet by ity of tablet 00:00: mouth (two) Medical times Branch daily. cloNIDine 2019-0 Yes [id number] .1mg Take 1 Un dani 0.1 mg 7-24 tablet by ity of tablet 00:00: mouth (two) Medical times Branch daily. cloNIDine 2019-0 Yes [id number] .1mg Take 1 Un dani 0.1 mg 7-24 tablet by ity of tablet 00:00: mouth (two) Medical times Branch daily. cloNIDine 2019-0 Yes [id number] .1mg Take 1 Un dani 0.1 mg 7-24 tablet by ity of tablet 00:00: mouth (two) Medical times Branch daily. cloNIDine 2019-0 Yes [id number] .1mg Take 1 Un dani 0.1 mg 7-24 tablet by ity of tablet 00:00: mouth (two) Medical times Branch daily. cloNIDine 2019-0 Yes [id number] .1mg Take 1 Un dani 0.1 mg 7-24 tablet by ity of tablet 00:00: mouth (two) Medical times Branch daily. cloNIDine 2019-0 Yes [id number] .1mg Take 1 Un dani 0.1 mg 7-24 tablet by ity of tablet 00:00: mouth (two) Medical times Branch daily. cloNIDine 2019-0 Yes [id number] .1mg Take 1 Un dani 0.1 mg 7-24 tablet by ity of tablet 00:00: mouth (two) Medical times Branch daily. cloNIDine 2019-0 Yes [id number] .1mg Take 1 Un dani 0.1 mg 7-24 tablet by ity of tablet 00:00: mouth (two) Medical times Branch daily. cloNIDine 2019-0 Yes [id number] .1mg Take 1 Un dani 0.1 mg 7-24 tablet by ity of tablet 00:00: mouth (two) Medical times Branch daily. cloNIDine 2019-0 Yes [id number] .1mg Take 1 Un dani 0.1 mg 7-24 tablet by ity of tablet 00:00: mouth (two) Medical times Branch daily. cloNIDine 2019-0 Yes [id number] .1mg Take 1 Un dani 0.1 mg 7-24 tablet by ity of tablet 00:00: mouth (two) Medical times Branch daily. cloNIDine 2019-0 Yes [id number] .1mg Take 1 Un dani 0.1 mg 7-24 tablet by ity of tablet 00:00: mouth 2 (two) Medical times Branch daily. cloNIDine 2019-0 Yes [id number] .1mg Take 1 Un dani 0.1 mg 7-24 tablet by ity of tablet 00:00: mouth 2 (two) Medical times Branch daily. acetaminoph 2019-0 Yes [id number] 1{tbl} Take 1 Univers en-codeine 1-16 tablet by ity of (TYLENOL-CO 00:00: mouth [place] DEINE #3) 00 every 4 Medical 300-30 mg (four) Branch tablet hours as needed for Pain (scale 7-10). amoxicillin Yes [id number] 500mg Take 1 Univers 500 mg 1-16 capsule by ity of capsule 00:00: mouth 3 [place] 00 (three) Medical times Branch daily. acetaminoph Yes [id number] 1{tbl} Take 1 Univers en-codeine 1-16 tablet by ity of (TYLENOL-CO 00:00: mouth [place] DEINE #3) 00 every 4 Medical 300-30 mg (four) Branch tablet hours as needed for Pain (scale 7-10). amoxicillin Yes [id number] 500mg Take 1 Univers 500 mg 1-16 capsule by ity of capsule 00:00: mouth 3 [place] 00 (three) Medical times Branch daily. acetaminoph Yes [id number] 1{tbl} Take 1 Univers en-codeine 1-16 tablet by ity of (TYLENOL-CO 00:00: mouth [place] DEINE #3) 00 every 4 Medical 300-30 mg (four) Branch tablet hours as needed for Pain (scale 7-10). amoxicillin 0 Yes [id number] 500mg Take 1 Univers 500 mg 1-16 capsule by ity of capsule 00:00: mouth 3 [place] 00 (three) Medical times Branch daily. acetaminoph Yes [id number] 1{tbl} Take 1 [facility] en-codeine 1-16 tablet by ity of (TYLENOL-CO 00:00: mouth [place] DEINE #3) 00 every 4 Medical 300-30 mg (four) Branch tablet hours as needed for Pain (scale 7-10). amoxicillin Yes [id number] 500mg Take 1 [facility] 500 mg 1-16 capsule by ity of capsule 00:00: mouth 3 [place] 00 (three) Medical times Branch daily. acetaminoph 20190 Yes [id number] 1{tbl} Take 1 [facility] en-codeine 1-16 tablet by ity of (TYLENOL-CO 00:00: mouth [place] DEINE #3) 00 every 4 Medical 300-30 mg (four) Branch tablet hours as needed for Pain (scale 7-10). amoxicillin 2019-0 Yes [id number] 500mg Take 1 [facility] 500 mg 1-16 capsule by ity of capsule 00:00: mouth 3 [place] 00 (three) Medical times Branch daily. acetaminoph 2019-0 Yes [id number] 1{tbl} Take 1 [facility] en-codeine 1-16 tablet by ity of (TYLENOL-CO 00:00: mouth [place] DEINE #3) 00 every 4 Medical 300-30 mg (four) Branch tablet hours as needed for Pain (scale 7-10). amoxicillin 0 Yes [id number] 500mg Take 1 [facility] 500 mg 1-16 capsule by ity of capsule 00:00: mouth 3 [place] 00 (three) Medical times Branch daily. acetaminoph 0 Yes [id number] 1{tbl} Take 1 [facility] en-codeine 1-16 tablet by ity of (TYLENOL-CO 00:00: mouth [place] DEINE #3) 00 every 4 Medical 300-30 mg (four) Branch tablet hours as needed for Pain (scale 7-10). amoxicillin 0 Yes [id number] 500mg Take 1 [facility] 500 mg 1-16 capsule by ity of capsule 00:00: mouth 3 [place] 00 (three) Medical times Branch daily. acetaminoph 0 Yes [id number] 1{tbl} Take 1 [facility] en-codeine 1-16 tablet by ity of (TYLENOL-CO 00:00: mouth [place] DEINE #3) 00 every 4 Medical 300-30 mg (four) Branch tablet hours as needed for Pain (scale 7-10). amoxicillin 0 Yes [id number] 500mg Take 1 [facility] 500 mg 1-16 capsule by ity of capsule 00:00: mouth 3 [place] 00 (three) Medical times Branch daily. acetaminoph 2019-0 Yes [id number] 1{tbl} Take 1 [facility] en-codeine 1-16 tablet by ity of (TYLENOL-CO 00:00: mouth [place] DEINE #3) 00 every 4 Medical 300-30 mg (four) Branch tablet hours as needed for Pain (scale 7-10). amoxicillin 2018-0 Yes [id number] 500mg Take 1 [facility] 500 mg 1-16 capsule by ity of capsule 00:00: mouth 3 [place] 00 (three) Medical times Branch daily. acetaminoph Yes [id number] 1{tbl} Take 1 [facility] en-codeine 1-16 tablet by ity of (TYLENOL-CO 00:00: mouth [place] DEINE #3) 00 every 4 Medical 300-30 mg (four) Branch tablet hours as needed for Pain (scale 7-10). amoxicillin Yes [id number] 500mg Take 1 [facility] 500 mg 1-16 capsule by ity of capsule 00:00: mouth 3 [place] 00 (three) Medical times Branch daily. acetaminoph Yes [id number] 1{tbl} Take 1 [facility] en-codeine 1-16 tablet by ity of (TYLENOL-CO 00:00: mouth [place] DEINE #3) 00 every 4 Medical 300-30 mg (four) Branch tablet hours as needed for Pain (scale 7-10). amoxicillin Yes [id number] 500mg Take 1 [facility] 500 mg 1-16 capsule by ity of capsule 00:00: mouth 3 00 (three) Medical times Branch daily. acetaminoph Yes [id number] 1{tbl} Take 1 [facility] en-codeine 1-16 tablet by ity of (TYLENOL-CO 00:00: mouth [place] DEINE #3) 00 every 4 Medical 300-30 mg (four) Branch tablet hours as needed for Pain (scale 7-10). amoxicillin Yes [id number] 500mg Take 1 [facility] 500 mg 1-16 capsule by ity of capsule 00:00: mouth 3 00 (three) Medical times Branch daily. acetaminoph Yes [id number] 1{tbl} Take 1 [facility] en-codeine 1-16 tablet by ity of (TYLENOL-CO 00:00: mouth [place] DEINE #3) 00 every 4 Medical 300-30 mg (four) Branch tablet hours as needed for Pain (scale 7-10). amoxicillin Yes [id number] 500mg Take 1 [facility] 500 mg 1-16 capsule by ity of capsule 00:00: mouth 3 [place] 00 (three) Medical times Branch daily. acetaminoph Yes [id number] 1{tbl} Take 1 [facility] en-codeine 1-16 tablet by ity of (TYLENOL-CO 00:00: mouth [place] DEINE #3) 00 every 4 Medical 300-30 mg (four) Branch tablet hours as needed for Pain (scale 7-10). amoxicillin Yes [id number] 500mg Take 1 [facility] 500 mg 1-16 capsule by ity of capsule 00:00: mouth 3 [place] 00 (three) Medical times Branch daily. acetaminoph Yes [id number] 1{tbl} Take 1 [facility] en-codeine 1-16 tablet by ity of (TYLENOL-CO 00:00: mouth [place] DEINE #3) 00 every 4 Medical 300-30 mg (four) Branch tablet hours as needed for Pain (scale 7-10). amoxicillin Yes [id number] 500mg Take 1 [facility] 500 mg 1-16 capsule by ity of capsule 00:00: mouth 3 [place] 00 (three) Medical times Branch daily. acetaminoph Yes [id number] 1{tbl} Take 1 [facility] en-codeine 1-16 tablet by ity of (TYLENOL-CO 00:00: mouth [place] DEINE #3) 00 every 4 Medical 300-30 mg (four) Branch tablet hours as needed for Pain (scale 7-10). amoxicillin Yes [id number] 500mg Take 1 [facility] 500 mg 1-16 capsule by ity of capsule 00:00: mouth 3 [place] 00 (three) Medical times Branch daily. acetaminoph 2020- No [id number] 1{tbl} Take 1 [facility] en-codeine 1-16 04-28 tablet by ity of (TYLENOL-CO 00:00: 00:[place] DE[place] #3[place] 00 :00 every 4 Medical 300-30 mg (four) Branch tablet hours as needed for Pain (scale 7-10). amoxicillin 2020- No [id number] 500mg Take 1 [facility] 500 mg 1-16 04-28 capsule by ity of capsule 00:00: 00:00 mouth 3 [place] 00 :00 (three) Medical times Branch daily. acetaminoph 2020- No [id number] 1{tbl} Take 1 [facility] en-codeine 1-16 04-28 tablet by ity of (TYLENOL-CO 00:00: 00:[place] DE[place] #3[place] 00 :00 every 4 Medical 300-30 mg (four) Branch tablet hours as needed for Pain (scale 7-10). amoxicillin 2018-1- No [id number] 500mg Take 1 [facility] 500 mg 10-17 [...] No 1{tbl} Take 1 U nivers en-codeine -20 01-28 tablet by ity of (TYLENOL-CO 00:00: [...] :00 daily. Medical Branch aspirin 81 2018-0 1- No 81mg Take 1 Univ ers mg chewable 9-04 06-09 tablet by it y of tablet 00:00: 00:00 mouth [place] 00 :00 daily. Medical Branch atorvastati 2017-0 Yes 20mg Take 1 Univ ers n 20 mg 9-03 tablet by ity of tablet 00:00: mouth at [place] 00 bedtime. Medical Branch SERTraline 2017-0 Yes [id number] 50mg Take 1 U nivers 50 mg 9-03 tablet by ity of tablet 00:00: mouth [place] 00 daily. Medical Branch atorvastati 2017-0 Yes 20mg Take 1 Univ ers n 20 mg 9-03 tablet by ity of tablet 00:00: mouth at [place] 00 bedtime. Medical Branch SERTraline 2017-0 Yes [id number] 50mg Take 1 U nivers 50 mg 9-03 tablet by ity of tablet 00:00: mouth [place] 00 daily. Medical Branch atorvastati 0 Yes 20mg Take 1 [facility] ers n 20 mg 9-03 tablet by ity of tablet 00:00: mouth at [place] 00 bedtime. Medical Branch SERTraline 2017-0 Yes [id number] 50mg Take 1 U nivers 50 mg 9-03 tablet by ity of tablet 00:00: mouth [place] 00 daily. Medical Branch atorvastati 0 Yes 20mg Take 1 [facility] ers n 20 mg 9-03 tablet by ity of tablet 00:00: mouth at [place] 00 bedtime. Medical Branch SERTraline 0 Yes [id number] 50mg Take 1 U nivers 50 mg 9-03 tablet by ity of tablet 00:00: mouth [place] 00 daily. Medical Branch atorvastati 2017-0 Yes 20mg Take 1 [facility] ers n 20 mg 9-03 tablet by ity of tablet 00:00: mouth at [place] 00 bedtime. Medical Branch SERTraline 2017-0 Yes [id number] 50mg Take 1 U nivers 50 mg 9-03 tablet by ity of tablet 00:00: mouth [place] 00 daily. Medical Branch atorvastati 2017-0 Yes 20mg Take 1 [facility] ers n 20 mg 9-03 tablet by ity of tablet 00:00: mouth at [place] 00 bedtime. Medical Branch SERTraline 2017-0 Yes [id number] 50mg Take 1 U nivers 50 mg 9-03 tablet by ity of tablet 00:00: mouth [place] 00 daily. Medical Branch atorvastati 2017-0 Yes 20mg Take 1 Univ ers n 20 mg 9-03 tablet by ity of tablet 00:00: mouth at [place] 00 bedtime. Medical Branch SERTraline 2017-0 Yes [id number] 50mg Take 1 U nivers 50 mg 9-03 tablet by ity of tablet 00:00: mouth [place] 00 daily. Medical Branch atorvastati 2017-0 Yes 20mg Take 1 [facility] ers n 20 mg 9-03 tablet by ity of tablet 00:00: mouth at [place] 00 bedtime. Medical Branch SERTraline 2017-0 Yes [id number] 50mg Take 1 U nivers 50 mg 9-03 tablet by ity of tablet 00:00: mouth [place] 00 daily. Medical Branch atorvastati 0 Yes 20mg Take 1 [facility] ers n 20 mg 9-03 tablet by ity of tablet 00:00: mouth at [place] 00 bedtime. Medical Branch SERTraline 2017-0 Yes [id number] 50mg Take 1 U nivers 50 mg 9-03 tablet by ity of tablet 00:00: mouth 00 daily. Medical Branch atorvastati 0 Yes 20mg Take 1 [facility] ers n 20 mg 9-03 tablet by ity of tablet 00:00: mouth at [place] bedtime. Medical Branch SERTraline 2017-0 Yes [id number] 50mg Take 1 U nivers 50 mg 9-03 tablet by ity of tablet 00:00: mouth [place] 00 daily. Medical Branch atorvastati 0 Yes 20mg Take 1 [facility] ers n 20 mg 9-03 tablet by ity of tablet 00:00: mouth at [place] bedtime. Medical Branch SERTraline 2018-0 Yes [id number] 50mg Take 1 U nivers 50 mg 9-03 tablet by ity of tablet 00:00: mouth 00 daily. Medical Branch atorvastati 2017-0 Yes 20mg Take 1 [facility] ers n 20 mg 9-03 tablet by ity of tablet 00:00: mouth at [place] 00 bedtime. Medical Branch SERTraline 2018-0 Yes [id number] 50mg Take 1 U nivers 50 mg 9-03 tablet by ity of tablet 00:00: mouth [place] 00 daily. Medical Branch atorvastati 2017-0 Yes 20mg Take 1 [facility] ers n 20 mg 9-03 tablet by ity of tablet 00:00: mouth at [place] 00 bedtime. Medical Branch SERTraline 2018-0 Yes [id number] 50mg Take 1 U nivers 50 mg 9-03 tablet by ity of tablet 00:00: mouth [place] 00 daily. Medical Branch atorvastati 2018-0 Yes 20mg Take 1 [facility] ers n 20 mg 9-03 tablet by ity of tablet 00:00: mouth at [place] 00 bedtime. Medical Branch SERTraline 2017-0 Yes [id number] 50mg Take 1 U nivers 50 mg 9-03 tablet by ity of tablet 00:00: mouth [place] 00 daily. Medical Branch atorvastati 2017-0 Yes 20mg Take 1 [facility] ers n 20 mg 9-03 tablet by ity of tablet 00:00: mouth at [place] bedtime. Medical Branch SERTraline 2017-0 Yes [id number] 50mg Take 1 U nivers 50 mg 9-03 tablet by ity of tablet 00:00: mouth 00 daily. Medical Branch atorvastati 2017-0 Yes 20mg Take 1 [facility] ers n 20 mg 9-03 tablet by ity of tablet 00:00: mouth at [place] bedtime. Medical Branch SERTraline 2017-0 Yes [id number] 50mg Take 1 U nivers 50 mg 9-03 tablet by ity of tablet 00:00: mouth 00 daily. Medical Branch atorvastati 2017-0 Yes 20mg Take 1 [facility] ers n 20 mg 9-03 tablet by ity of tablet 00:00: mouth at [place] bedtime. Medical Branch SERTraline 2017-0 Yes [id number] 50mg Take 1 U nivers 50 mg 9-03 tablet by ity of tablet 00:00: mouth 00 daily. Medical Branch atorvastati 2017-0 Yes 20mg Take 1 [facility] ers n 20 mg 9-03 tablet by ity of tablet 00:00: mouth at [place] bedtime. Medical Branch SERTraline 2017-0 Yes [id number] 50mg Take 1 U nivers 50 mg 9-03 tablet by ity of tablet 00:00: mouth [place] 00 daily. Medical Branch atorvastati 2018-0 Yes 20mg Take 1 [facility] ers n 20 mg 9-03 tablet by ity of tablet 00:00: mouth at [place] bedtime. Medical Branch SERTraline 2017-0 Yes [id number] 50mg Take 1 U nivers 50 mg 9-03 tablet by ity of tablet 00:00: mouth [place] 00 daily. Medical Branch atorvastati 2018-0 Yes 20mg Take 1 [facility] ers n 20 mg 9-03 tablet by ity of tablet 00:00: mouth at [place] 00 bedtime. Medical Branch SERTraline 2018-0 Yes [id number] 50mg Take 1 U nivers 50 mg 9-03 tablet by ity of tablet 00:00: mouth [place] 00 daily. Medical Branch atorvastati 2017-0 Yes 20mg Take 1 [facility] ers n 20 mg 9-03 tablet by ity of tablet 00:00: mouth at [place] 00 bedtime. Medical Branch SERTraline 2017-0 Yes [id number] 50mg Take 1 U nivers 50 mg 9-03 tablet by ity of tablet 00:00: mouth [place] 00 daily. Medical Branch atorvastati 2017-0 Yes 20mg Take 1 [facility] ers n 20 mg 9-03 tablet by ity of tablet 00:00: mouth at [place] 00 bedtime. Medical Branch SERTraline 2017-0 Yes [id number] 50mg Take 1 U nivers 50 mg 9-03 tablet by ity of tablet 00:00: mouth [place] 00 daily. Medical Branch atorvastati 2017-0 Yes 20mg Take 1 [facility] ers n 20 mg 9-03 tablet by ity of tablet 00:00: mouth at [place] 00 bedtime. Medical Branch SERTraline 2017-0 Yes [id number] 50mg Take 1 U nivers 50 mg 9-03 tablet by ity of tablet 00:00: mouth [place] 00 daily. Medical Branch atorvastati 2017-0 Yes 20mg Take 1 [facility] ers n 20 mg 9-03 tablet by ity of tablet 00:00: mouth at [place] 00 bedtime. Medical Branch SERTraline 2018-0 Yes [id number] 50mg Take 1 U nivers 50 mg 9-03 tablet by ity of tablet 00:00: mouth [place] 00 daily. Medical Branch atorvastati 2018-0 Yes 20mg Take 1 Univ ers n 20 mg 9-03 tablet by ity of tablet 00:00: mouth at [place] 00 bedtime. Medical Branch SERTraline 2017-0 Yes [id number] 50mg Take 1 U nivers 50 mg 9-03 tablet by ity of tablet 00:00: mouth [place] 00 daily. Medical Branch atorvastati 2017-0 Yes 20mg Take 1 Univ ers n 20 mg 9-03 tablet by ity of tablet 00:00: mouth at [place] bedtime. Medical Branch SERTraline 2018-0 Yes [id number] 50mg Take 1 U nivers 50 mg 9-03 tablet by ity of tablet 00:00: mouth [place] 00 daily. Medical Branch atorvastati 2017-0 Yes 20mg Take 1 Univ ers n 20 mg 9-03 tablet by ity of tablet 00:00: mouth at [place] bedtime. Medical Branch SERTraline 2017-0 Yes [id number] 50mg Take 1 U nivers 50 mg 9-03 tablet by ity of tablet 00:00: mouth [place] 00 daily. Medical Branch atorvastati 2017-0 Yes 20mg Take 1 Univ ers n 20 mg 9-03 tablet by ity of tablet 00:00: mouth at [place] bedtime. Medical Branch SERTraline 2017-0 Yes [id number] 50mg Take 1 U nivers 50 mg 9-03 tablet by ity of tablet 00:00: mouth 00 daily. Medical Branch atorvastati 2017-0 Yes 20mg Take 1 Univ ers n 20 mg 9-03 tablet by ity of tablet 00:00: mouth at [place] bedtime. Medical Branch SERTraline 0 Yes [id number] 50mg Take 1 U nivers 50 mg 9-03 tablet by ity of tablet 00:00: mouth 00 daily. Medical Branch atorvastati 0 Yes 20mg Take 1 Univ ers n 20 mg 9-03 tablet by ity of tablet 00:00: mouth at [place] bedtime. Medical Branch SERTraline 2017-0 Yes [id number] 50mg Take 1 U nivers 50 mg 9-03 tablet by ity of tablet 00:00: mouth 00 daily. Medical Branch atorvastati 2017-0 Yes 20mg Take 1 Univ ers n 20 mg 9-03 tablet by ity of tablet 00:00: mouth at [place] bedtime. Medical Branch SERTraline 2017-0 Yes [id number] 50mg Take 1 U nivers 50 mg 9-03 tablet by ity of tablet 00:00: mouth [place] 00 daily. Medical Branch atorvastati 2017-0 Yes 20mg Take 1 Univ ers n 20 mg 9-03 tablet by ity of tablet 00:00: mouth at [place] bedtime. Medical Branch SERTraline 2017-0 Yes [id number] 50mg Take 1 U nivers 50 mg 9-03 tablet by ity of tablet 00:00: mouth [place] 00 daily. Medical Branch atorvastati 2017-0 Yes 20mg Take 1 Univ ers n 20 mg 9-03 tablet by ity of tablet 00:00: mouth at [place] 00 bedtime. Medical Branch SERTraline 2017-0 Yes [id number] 50mg Take 1 U nivers 50 mg 9-03 tablet by ity of tablet 00:00: mouth [place] 00 daily. Medical Branch atorvastati 2017-0 Yes 20mg Take 1 Univ ers n 20 mg 9-03 tablet by ity of tablet 00:00: mouth at [place] 00 bedtime. Medical Branch SERTraline 0 Yes [id number] 50mg Take 1 U nivers 50 mg 9-03 tablet by ity of tablet 00:00: mouth [place] 00 daily. Medical Branch atorvastati 0 Yes 20mg Take 1 Univ ers n 20 mg 9-03 tablet by ity of tablet 00:00: mouth at [place] 00 bedtime. Medical Branch SERTraline 2017-0 Yes [id number] 50mg Take 1 U nivers 50 mg 9-03 tablet by ity of tablet 00:00: mouth [place] 00 daily. Medical Branch atorvastati 0 Yes 20mg Take 1 Univ ers n 20 mg 9-03 tablet by ity of tablet 00:00: mouth at [place] 00 bedtime. Medical Branch SERTraline 2017-0 Yes [id number] 50mg Take 1 U nivers 50 mg 9-03 tablet by ity of tablet 00:00: mouth [place] 00 daily. Medical Branch atorvastati 2017-0 Yes 20mg Take 1 Univ ers n 20 mg 9-03 tablet by ity of tablet 00:00: mouth at [place] 00 bedtime. Medical Branch SERTraline 0 Yes [id number] 50mg Take 1 U nivers 50 mg 9-03 tablet by ity of tablet 00:00: mouth [place] 00 daily. Medical Branch atorvastati 2017-0 Yes 20mg Take 1 Univ ers n 20 mg 9-03 tablet by ity of tablet 00:00: mouth at [place] 00 bedtime. Medical Branch SERTraline 2017-0 Yes [id number] 50mg Take 1 U nivers 50 mg 9-03 tablet by ity of tablet 00:00: mouth [place] 00 daily. Medical Branch atorvastati 2018-0 Yes 20mg Take 1 Univ ers n 20 mg 9-03 tablet by ity of tablet 00:00: mouth at [place] 00 bedtime. Medical Branch SERTraline 2018-0 Yes [id number] 50mg Take 1 U nivers 50 mg [...] CHEW 00:00: [place] 00 Medical Branch PHENYTOIN 2008- Yes 1 Cap Oral Un dani SODIUM [...] No Take one Univ ers CALCIUM 240 03-05 capsule by i ty of MG ORAL CAP 00:00: 00:00 [place] 00 :00 daily as Medical needed for Branch constipati on FERROUS 2020- No Take one Unive rs SULFATE 325 03-05 tablet by it y of MG (65 MG 00:00: 00:00 mouth [place] IRON) ORAL 00 :00 twice Medical TAB daily Branch DOCUSATE 2020- No Take one Univ ers CALCIUM 240 03-05 capsule by i ty of MG ORAL CAP 00:00: 00:00 [place] 00 :00 daily as Medical needed for Branch constipati on FERROUS 2020- No Take one Unive rs SULFATE 325 03-05 tablet by it y of MG (65 MG 00:00: 00:00 mouth [place] IRON) ORAL 00 :00 twice Medical TAB daily Branch Immunizations Ordered Filled Immunization Date Status Comments [facility] Immunization Name Name SARS-COV-2 COVID-19 2021-04-19 Completed Unive rsity of MOD[facility]NA VACCINE 00:00:00 [facility] [place] [facility] SARS-COV-2 COVID-19 2021-04-19 Completed Unive rsity of MODERNA VACCINE 00:00:00 [facility] [place] [facility] SARS-COV-2 COVID-19 2021-04-19 Completed Unive rsity of MODERNA VACCINE 00:00:00 [facility] [place] [facility] SARS-COV-2 COVID-19 2021-04-19 Completed Unive rsity of MODERNA VACCINE 00:00:00 [facility] [place] [facility] SARS-COV-2 COVID-19 2021-04-19 Completed Unive rsity of MODERNA VACCINE 00:00:00 [facility] [place] [facility] SARS-COV-2 COVID-19 2021-04-19 Completed Unive rsity of MODERNA VACCINE 00:00:00 [facility] [place] [facility] SARS-COV-2 COVID-19 2021-03-20 Completed Unive rsity of MODERNA VACCINE 00:00:00 [facility] [place] [facility] SARS-COV-2 COVID-19 2021-03-20 Completed Unive rsity of MODERNA VACCINE 00:00:00 [facility] [place] [facility] SARS-COV-2 COVID-19 2021-03-20 Completed Unive rsity of MODERNA VACCINE 00:00:00 [facility] [place] [facility] SARS-COV-2 COVID-19 2021-03-20 Completed Unive rsity of MODERNA VACCINE 00:00:00 [facility] [place] [facility] SARS-COV-2 COVID-19 2021-03-20 Completed Unive rsity of MODERNA VACCINE 00:00:00 [facility] [place] [facility] SARS-COV-2 COVID-19 2021-03-20 Completed Unive rsity of MODERNA VACCINE 00:00:00 [facility] [place] [facility] H1n1 Vaccine 2009-07-16 Completed University o f 00:00:00 [facility] H1n1 Vaccine 2009-07-16 Completed University o f 00:00:00 [facility] H1n1 Vaccine 2009-07-16 Completed University o f 00[facility]00:00 [facility] H1n1 Vaccine 2009-07-16 Completed University o f 00[facility]00:00 [facility] H1n1 Vaccine 2009-07-16 Completed University o f 00[facility]00:00 [facility] H1n1 Vaccine 2009-07-16 Completed University o f 00:00:00 [facility] Vital Signs Vital Name Observation Time Observation Value Comments Source Systolic blood 2021-10-31 18:32:00 151 mm[Hg] Univer sity of pressure [facility] Diastolic blood 2021-10-31 18:32:00 109 mm[Hg] Unive rsity of pressure [facility] Heart rate 2021-10-31 18:32:00 92 /min [facility]i ty of [facility] Body temperature 2021-10-31 18:32:00 [address] [facility] Respiratory rate 2021-10-31 18:32:00 16 /min Univ ersity of [facility] Body height 2021-10-31 18:32:00 162.[address] [facility] Body weight 2021-10-31 18:32:00 99.791 kg Universi ty of [place] [facility] BMI 2021-10-31 18:32:00 37.76 kg/m2 [facility]i ty of [facility] Oxygen saturation in 2021-10-31 18:32:00 100 /min University of Arterial blood by [facility] Pulse oximetry [place] Systolic blood 2021-06-19 00:30:00 135 mm[Hg] Univer sity of pressure [facility] Diastolic blood 2021-06-19 00:30:00 95 mm[Hg] Unive rsity of pressure [facility] Heart rate 2021-06-19 00:30:00 73 /min Universi ty of [facility] Respiratory rate 2021-06-19 00:30:00 16 /min Univ ersity of [facility] Oxygen saturation in 2021-06-19 00:30:00 100 /min University of Arterial blood by [facility] Pulse oximetry [place] Body temperature 2021-06-19 00:00:00 37.17 Cindi Univ ersity of [facility] Body height 2021-06-18 19:35:00 162.6 cm Universi ty of [place] [facility] [place] Body weight 2021-06-18 19:35:00 106.142 kg [facility]i [facility] [place] [facility] BMI 2021-06-18 19:35:00 40.17 kg/m2 [facility] [place] [facility] Systolic blood 2021-04-05 13:45:00 123 mm[Hg] Univer sity of pressure [place] [facility] Diastolic blood 2021-04-05 13:45:00 86 mm[Hg] Unive rsity of pressure [place] [facility] Heart rate 2021-04-05 13:45:00 78 /min [facility]i ty [facility] [place] [facility] Body temperature 2021-04-05 13:45:00 36.72 Cindi [facility] ers[facility] of [place] [facility] Respiratory rate 2021-04-05 13:45:00 18 /min Univ ersity of [place] [facility] Body height 2021-04-05 13:45:00 162.6 cm [facility]i ty [facility] [place] [facility] Body weight 2021-04-05 13:45:00 106.142 kg [facility]i [facility] [place] [facility] BMI 2021-04-05 13:45:00 40.17 kg/m2 [facility] [place] [facility] Systolic blood 2021-03-29 14:19:00 134 mm[Hg] Univer sity of pressure [place] [facility] Diastolic blood 2021-03-29 14:19:00 89 mm[Hg] Unive rsity of pressure [place] [facility] Heart rate 2021-03-29 14:19:00 88 /min [facility]i [facility] [place] [facility] Body temperature 2021-03-29 14:19:00 36.89 Cindi [facility] [place] [facility] Respiratory rate 2021-03-29 14:19:00 18 /min Univ ersity of [place] [facility] Body height 2021-03-29 14:19:00 162.6 cm [facility]i [facility] [place] [facility] Body weight 2021-03-29 14:19:00 108.047 kg [facility] [place] [facility] BMI 2021-03-29 14:19:00 40.89 kg/m2 [facility] [place] [facility] Systolic blood 2021-03-10 19:16:00 134 mm[Hg] Univer sity of pressure [place] [facility] Diastolic blood 2021-03-10 19:16:00 85 mm[Hg] Unive rsity of pressure [place] [facility] Heart rate 2021-03-10 19:16:00 83 /min [facility]i [facility] [place] [facility] Body temperature 2021-03-10 19:16:00 36.94 Cindi [facility] [place] [facility] Respiratory rate 2021-03-10 19:16:00 18 /min Univ ers[facility] of [place] [facility] Body height 2021-03-10 19:16:00 162.6 cm [facility] [place] [facility] Body weight 2021-03-10 19:16:00 107.14 kg [facility] [place] [facility] BMI 2021-03-10 19:16:00 40.54 kg/m2 [facility] [place] [facility] Systolic blood 2021-02-24 19:05:00 139 mm[Hg] Univer sity of pressure [place] [facility] Diastolic blood 2021-02-24 19:05:00 94 mm[Hg] Unive rsity of pressure [place] [facility] Heart rate 2021-02-24 19:05:00 81 /min [facility] [place] [facility] Body temperature 2021-02-24 19:04:00 36.78 Cindi [facility] [place] [facility] Respiratory rate 2021-02-24 19:04:00 18 /min Univ ers[facility] of [place] [facility] Body height 2021-02-24 19:04:00 162.6 cm [facility] [place] [facility] Body weight 2021-02-24 19:04:00 107.049 kg [facility] [place] [facility] BMI 2021-02-24 19:04:00 40.51 kg/m2 [facility] [place] [facility] Systolic blood 2021-02-22 10:00:00 138 mm[Hg] Univer sity of pressure [place] [facility] Diastolic blood 2021-02-22 10:00:00 100 mm[Hg] Unive rsity of pressure [place] [facility] Heart rate 2021-02-22 10:00:00 71 /min [facility] [place] [facility] Respiratory rate 2021-02-22 10:00:00 13 /min Univ ersity of [facility] Oxygen saturation in 2021-02-22 10:00:00 98 /min University of Arterial blood by [facility] Pulse oximetry Branch Body temperature 2021-02-22 04:21:04 37.[address] C[address] [facility] [address] of [facility] Body height 2021-02-22 02:24:00 162.6 cm [facility] ty of [place] Medical [facility] Body weight 2021-02-22 02:24:00 104.327 kg [facility] BMI 2021-02-22 02:24:00 39.48 kg/m2 [facility] Diastolic blood 2021-01-27 20:31:00 91 mm[Hg] Unive rsity of pressure [facility] Heart rate 2021-01-27 20:31:00 84 /min [facility] Systolic blood 2021-01-27 20:31:00 145 mm[Hg] Univer sity of [facility] [place] Body temperature 2021-01-27 20:25:00 36.83 Cindi Univ ers[facility] Respiratory rate 2021-01-27 20:25:00 18 /min Univ ersity of [facility] Body height 2021-01-27 20:25:00 162.[address] [facility] Body weight 2021-01-27 20:25:00 108.41 kg [facility] [place] BMI 2021-01-27 20:25:00 41.02 kg/m2 [facility] Systolic blood 2021-01-19 22:16:47 128 mm[Hg] Univer sity of [facility] Diastolic blood 2021-01-19 22:16:47 89 mm[Hg] Unive rsity of [facility] Heart rate 2021-01-19 22:16:47 71 /min Universi ty of [facility] Body temperature 2021-01-19 22:16:47 37.[address] [facility] Respiratory rate 2021-01-19 22:16:47 18 /min Univ ersity of [facility] Oxygen saturation in 2021-01-19 22:16:47 100 /min University Arterial blood by [facility] Pulse oximetry Branch Body weight 2021-01-19 18:09:00 106.142 kg [facility] BMI 2021-01-19 18:09:00 40.17 kg/m2 [facility] Systolic blood 2020-11-11 01:09:43 147 mm[Hg] Univer sity of [facility] Diastolic blood 2020-11-11 01:09:43 96 mm[Hg] Unive rsity of [facility] [place] [facility] Heart rate 2020-11-11 01:09:43 86 /min [facility] [place] [facility] Body temperature 2020-11-11 01:09:43 37.28 Cindi [facility] Respiratory rate 2020-11-11 01:09:43 18 /min [facility] Oxygen saturation in 2020-11-11 01:09:43 100 /min University of Arterial blood by [facility] dejah Pulse oximetry Branch Body weight 2020-11-11 00:06:00 106.142 kg [facility] BMI 2020-11-11 00:06:00 40.17 kg/m2 [facility] Systolic blood 2020-11-11 01:09:43 147 mm[Hg] [facility] Diastolic blood 2020-11-11 01:09:43 96 mm[Hg] Unive [facility] Heart rate 2020-11-11 01:09:43 86 /min [facility] Body temperature 2020-11-11 01:09:43 37.28 Cindi [facility] Respiratory rate 2020-11-11 01:09:43 18 /min [facility] Oxygen saturation in 2020-11-11 01:09:43 100 /min University of Arterial blood by [facility] dejah Pulse oximetry Branch Body weight 2020-11-11 00:06:00 106.142 kg [facility] BMI 2020-11-11 00:06:00 40.17 kg/m2 [facility] Systolic blood 2019-12-16 21:22:00 132 mm[Hg] [facility] Diastolic blood 2019-12-16 21:22:00 87 mm[Hg] Unive [facility]ity [facility] Heart rate 2019-12-16 21:22:00 83 /min [facility] Body height 2019-12-16 21:22:00 162.6 cm [facility] Body weight 2019-12-16 21:22:00 106.142 kg [facility] BMI 2019-12-16 21:22:00 40.17 kg/m2 [facility] Systolic blood 2019-12-16 21:22:00 132 mm[Hg] Univer sity pressure [facility] Diastolic blood 2019-12-16 21:22:00 87 mm[Hg] [facility] Heart rate 2019-12-16 21:22:00 83 /min [facility] Body height 2019-12-16 21:22:00 162.6 cm [facility] Body weight 2019-12-16 21:22:00 106.142 kg [facility] BMI 2019-12-16 21:22:00 40.17 kg/m2 [facility] Procedures Procedure Date / Time Performing Clinician Source Performed NOTICE OF PRIVACY 2021-10-31 18:23:05 Doctor Unadilanigned, [facility] PRACTICES [place] [facility] CONSENT/REFUSAL FOR 2021-10-31 18:20:02 Doctor Unassigned, [facility] DIAGNOSIS AND TREATMENT [facility] [facility] CT ABDOMEN PELVIS W 2021-06-18 22:53:18 Nohemi Dinh [facility] CONTRAST [facility] ASSIGNMENT OF BENEFITS 2021-06-18 20:28:15 Doctor Unassigned, [facility] XR ABDOMEN 1 VW 2021-06-18 20:23:37 Karlee Gomez [facility] POCT TEST 2021-06-18 20:10:00 Karlee Gomez [facility] URINALYSIS 2021-06-18 20:09:00 Karlee Gomez [facility] LIPASE 2021-06-18 20:08:00 Karlee Gomez [facility] HEPATIC FUNCTION PANEL 2021-06-18 20:08:00 Karlee Gomez [facility] ([id number]) (ALB,T.PRO,BILI Medical Branch T,BU/BC,ALT,AST,ALK PHOS) BASIC METABOLIC PANEL 2021-06-18 20:08:00 Karlee Gomez [facility] (NA, K, CL, CO2, GLUCOSE, Medica l Branch BUN, CREATININE, CA) CBC WITH DIFF 2021-06-18 20:08:00 Karlee Gomez [facility] CONSENT/REFUSAL FOR 2021-06-18 19:15:28 Doctor Yomaira [facility] DIAGNOSIS AND TREATMENT [place] [facility] POCT TEST 2021-03-29 14:12:00 Tasha De Oliveira [facility] FIREFIGHTER TYPE ONE CLINIC ULTRASOUND 2021-03-29 05:01:00 Doctor Yomaira, [facility] [place] [facility] [place] POCT TEST 2021-02-24 00:00:00 Tasha De Oliveira [facility] COMP. METABOLIC PANEL 2021-02-22 04:38:00 Fredo Hogue [facility] ([id number]) [facility] CT ABDOMEN PELVIS W 2021-02-22 04:14:23 Riri Isaacs [facility] CONTRAST Medical Branch LIPASE 2021-02-22 03:30:00 Fredo Hogue [facility] CBC WITH DIFF 2021-02-22 03:30:00 Fredo Hogue [facility] URINALYSIS 2021-02-22 03:30:00 Fredo Hogue [facility] POCT TEST 2021-02-22 03:30:00 Fredo Hogue [facility] CONSENT/REFUSAL FOR 2021-02-22 02:09:58 Doctor Yomaira [facility] DIAGNOSIS AND TREATMENT [place] [facility] [place] ASSIGNMENT OF BENEFITS 2021-01-27 20:14:09 Doctor Yomaira [facility] Name Medical Branch REFERRAL- 2021-01-22 05:01:00 Doctor Yomaira, [facility] REQUEST/RESPONSE [place] [facility] CT ABDOMEN PELVIS W 2021-01-19 21:04:54 Sam Evans [facility] CONTRAST Medical Branch POCT TEST 2021-01-19 20:54:00 Sam Evans [facility] URINALYSIS 2021-01-19 20:38:00 Sam Evans [facility] COMP. METABOLIC PANEL 2021-01-19 20:36:00 Sam Evans [facility] ([id number]) [facility] [place] CBC WITH DIFF 2021-01-19 20:36:00 Sam Evans [facility] NOTICE OF PRIVACY 2021-01-19 18:00:58 Doctor Yomaira, [facility] [place] [facility] CONSENT/REFUSAL FOR 2021-01-19 17:56:54 [facility] DIAGNOSIS AND TREATMENT [place] [facility] URINALYSIS 2020-11-11 00:46:00 Nohemi Dinh [facility] NOTICE OF PRIVACY 2020-11-11 00:01:[address] [facility] [place] [facility] CONSENT/REFUSAL FOR 2020-11-10 23:59:08 Doctor [facility] DIAGNOSIS AND TREATMENT [place] [facility] INSURANCE 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 2020-02-20 05:01:00 Doctor Burnette [facility] [place] [facility] AUTHORIZATION FOR RELEASE 2020-02-10 05:01:00 Doctor Yomaira, [facility] [place] [facility] INSURANCE 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 2020-01-31 05:01:00 Doctor Yomaira [facility] [place] [facility] [place] XR KNEE <3 VW RIGHT 2019-12-16 21:34:01 Maia Shrestha [facility] [place] ASSIGNMENT OF BENEFITS 2019-12-16 21:15:03 Doctor Yomaira, [facility] [place] [facility] Encounters Start End Encounter Admission Attending Care Care Encounter Source Date/Time Date/Time Type Type Clinicians Facility Department ID 2021-08-02 Emergency [facility] [id number] [facility] 23:28:18 [facility] 2021-08-01 Emergency [facility] [id number] Univers 20:45:33 [facility] 2021-08-01 Emergency [facility] [id number] Univers 14:07:05 [facility] 2021-07-31 Emergency [facility] [id number] Univers [facility] 2021-11-02 2021-11-02 Emergency EM Harris, HCAPM SKYLA [id number] [facility] 14:32:00 14:48:00 Jose [id number] [facility] 2021-11-02 2021-11-02 Emergency EM Harris, HCAPM HCAPM [id number] [facility] 14:32:00 14:48:00 Jose 20 [facility] 2021-10-31 2021-10-31 Emergency X PATRICIA [facility] ERT [id number] Univers 12:33:00 13:01:[address] [facility] 2021-10-31 2021-10-31 Emergency [facility] [id number] Univers 12:33:00 13:01:00 Karlee SMITH [id number] ity of [place] [phone] [address] 2021-10-31 2021-10-31 Orders Doctor BREANNA 1.2.840.114 [id number] Univers 00:00:00 00:00:00 Only Unassigned, JUANY [id number] ity of [place] [facility] 4.2.7.2.686 Matt as [phone] [place] [address] Branch 2021-06-18 2021-06-18 Emergency [facility] 1.2.380.602 [id number] Univers 14:44:00 19:42:00 Nohemi Smith [id number] i [place] [phone] [address] 2021-06-14 2021-06-14 Telephone Jordan Correa 1.2.840.114 [id number] Univers 00:00:00 00:00:00 , Mony Leiva [id number] it[place] [phone] [address] 2021-04-28 2021-04-28 Outpatient TASHA MORROW [facility] [id number] 4P-20 Univers 13:30:00 13:30:00 [id number] ity [facility] 2021-04-28 2021-04-28 Outpatient R TASHA DE OLIVEIRA [facility] [id number] Univers 13:30:00 13:30:00 ity [facility] 2021-04-15 2021-04-15 Outpatient R MAXIMUS [facility] [id number] 4P-20 Univers 14:00:00 14:00:[id number] [facility] 2021-04-15 2021-04-15 Outpatient R MAXIMUS [facility] [id number] Univers 14:00:00 14:00:[address] [facility] 2021-04-12 2021-04-12 Outpatient R JACKELINE [facility] [id number] P-20 Univers 08:00:00 08:00:[id number] [facility] 2021-04-12 2021-04-12 Outpatient R JACKELINE [facility] [id number] Univers 08:00:00 08:00:[address] [facility] 2021-04-05 2021-04-05 Office Alvino [facility] [id number] Univers 08:36:11 09:07:09 Visit Cam [place] [id number] i [place] [phone] Wy dic[address] 2021-04-05 2021-04-05 Outpatient R DE OLIVEIRATASHA [facility] [id number] 4P-20 Univers 08:45:00 08:45:[id number] [facility] 2021-04-05 2021-04-05 Outpatient R TASHA DE OLIVEIRA [facility] [id number] Univers 08:45:00 08:45:00 [facility] 2021-04-02 2021-04-02 Telephone Alvino [facility] 1.2.840.114 [id number] Univers 00:00:00 00:00:00 Cam [place] [id number] [place] [phone] Wy dical nal [address] [place] [address] 2021-03-29 2021-03-29 Office Alvino [facility] [id number] Univers 08:54:36 09:35:27 Visit Cam [place] [id number] i ty [place] [phone] Wy dical [address] 2021-03-29 2021-03-29 Outpatient R TASHA DE OLIVEIRA [facility] [id number] 4P-20 Univers 09:00:00 09:00:00 [id number] ity [facility] 2021-03-29 2021-03-29 Outpatient R TASHA DE OLIVEIRA [facility] [id number] Univers 09:00:00 09:00:00 ity [facility] 2021-03-29 2021-03-29 Orders Doctor BREANNA 1.2.840.114 [id number] Univers 00:00:00 00:00:00 Only Unassigned, JUANY [id number] ity of [facility] 4.2.7.2.686 [place] as [phone] [address] 2021-03-19 2021-03-19 Outpatient R TASHA DE OLIVEIRA [facility] [id number] 4P-20 Univers 11:00:00 11:00:00 [id number] ity [facility] 2021-03-19 2021-03-19 Outpatient R ALVINO [facility] [id number] Univers 11:00:00 11:00:00 ity [facility] 2021-03-18 2021-03-18 Telephone [facility] 1.2.840.114 [id number] Univers 00:00:00 00:00:00 Cam Taylor [id number] [place] [phone] Wy dic[address] 2021-03-10 2021-03-10 Office Alvino [facility] [id number] [id number] Univers 13:52:09 14:30:52 Visit Cam Taylor [id number] i [place] [phone] Wy dical nal [address] [place] [address] 2021-03-10 2021-03-10 [facility] [id number] 4P-20 Univers 14:15:00 14:15:00 [id number] ity [facility] 2021-03-10 2021-03-10 Outpatient R TASHA DE OLIVEIRA [facility] [id number] Univers 14:15:00 14:15:00 ity [facility] 2021-03-02 2021-03-02 Telephone Tasha De Oliveira [facility] 1.2.840.114 [id number] Univers 00:00:00 00:00:00 Cam [place] 350.1.13.10 [place] [phone] Wy dic[address] 2021-02-24 2021-02-24 Office [facility] [id number] [id number] Univers 13:22:56 14:21:21 Visit Inder Smith 350.1.13.10 i [place] [phone] [address] 2021-02-24 2021-02-24 Outpatient R TASHA DE OLIVEIRA [facility] [id number] 4-20 Univers 13:30:00 13:30:00 [id number] ity [facility] 2021-02-24 2021-02-24 Outpatient R ALVINO TASHA [facility] [id number] Univers 13:30:00 13:30:00 [facility] 2021-02-21 2021-02-22 Emergency Rhys, Riri [facility] 1.2.840.114 [id number] Univers 22:04:00 05:32:00 Roni Smith 350.1.13.10 i ty [place] [phone] [address] 2021-01-27 2021-01-27 Office Tasha De Oliveira [facility] [id number] [id number] Univers 15:15:37 16:25:23 Visit Inder Smith 350.1.13.10 i ty of [place] [phone] Wy dical nal [address] [place] [address] 2021-01-27 2021-01-27 Outpatient R ALVINO TASHA [facility] [id number] 4P-20 Univers 15:00:00 15:00:[id number] [facility] 2021-01-27 2021-01-27 Outpatient Aravind TASHA DE OLIVEIRA [facility] [id number] Univers 15:00:00 15:00:[address] [facility] 2021-01-27 2021-01-27 Orders Doctor BREANNA 1.2.840.114 [id number] Univers 00:00:00 00:00:00 Only Unassigned, JUANY 350.1.13.10 ity of [place] [facility] 4.2.7.2.686 Matt as [phone] [address] 2021-01-22 2021-01-22 Orders Doctor BREANNA 1.2.840.114 [id number] Univers 00:00:00 00:00:00 Only Unassigned, JUANY 350.1.13.10 ity of [place] [facility] 4.2.7.2.686 Matt as [phone] [address] 2021-01-19 2021-01-19 Emergency [facility] [id number] Univers 13:10:00 17:27:00 Sam Smith 350.1.13.10 i ty [place] [phone] [facility] 084 [place] 2020-12-21 2020-12-21 Patient Leopoldo [facility] 1.2.840.114 [id number] Univers 00:00:00 00:00:00 Outreach Fredrick NOGUEIRA 350.1.13.10 i ty of [place] [place]2.7.2.[place] [facility] [phone] Wy dical [address] 2020-11-10 2020-11-10 Emergency [facility] [id number] Univers 18:08:00 20:09:00 Nohemi Smith 350.1.13.10 i ty [place] [phone] [facility] 084 Branch 2020-11-10 2020-11-10 Emergency [facility] 1.2.125.276 [id number] 18:08:00 20:09:00 Nohemi Smith 350.1.13.10 [place] 4.2.7.2.686 [place] [id number] 084 2020-02-20 2020-02-20 Orders Doctor CARLOS 1.2.840.114 [id number] Univers 00:00:00 00:00:00 Only Unassigned, JUANY 350.1.13.10 ity of [place] [facility] 4.2.7.2.686 Matt as [phone] [address] 2020-02-20 2020-02-20 Orders Doctor CARLOS 1.2.840.114 [id number] 00:00:00 00:00:00 Only Unassigned, JUANY 350.1.13.10 [place] [facility] 4.2.7.2.686 [id number] 2020-02-10 2020-02-10 Orders Doctor CARLOS 1.2.840.114 [id number] Univers 00:00:00 00:00:00 Only Unassigned, JUANY 350.1.13.10 ity of [place] [facility] 4.2.7.2.686 Matt as [phone] [address] 2020-02-10 2020-02-10 Orders Doctor CARLOS 1.2.840.114 [id number] 00:00:00 00:00:00 Only Unassigned, JUANY 350.1.13.10 [place] [facility] 4.2.7.2.686 [id number] 009 2020-01-31 2020-01-31 Orders Doctor CARLOS 1.2.840.114 [id number] Univers 00:00:00 00:00:00 Only Unassigned, JUANY 350.1.13.10 ity of [place] [facility] 4.2.7.2.686 Matt as [phone] [address] 2020-01-31 2020-01-31 Orders Doctor CARLOS 1.2.840.114 [id number] 00:00:00 00:00:00 Only Unassigned, JUANY 350.1.13.10 [place] [facility] 4.2.7.2.686 [id number] 2020-01-29 2020-01-29 Telephone ALMA Kim 1.2.840.114 [id number] Univers 00:00:00 00:00:00 [facility] 350.1.13.10 it y of Surgical 4.2.7.2.686 Matt as Specialti [phone] Wy dical es 198 [facility] 2020-01-29 2020-01-29 [place] [facility] 1.2.840.114 [id number] 00:00:00 00:00:00 [facility] 350.1.13.10 Surgical 4.2.7.2.686 Specialti [phone] es [address] [place] 2020-01-28 2020-01-28 [place] [facility] 1.2.840.114 [id number] Univers 00:00:00 00:00:00 [facility] 350.1.13.10 it y of Surgical 4.2.7.2.686 [place] as Specialti [phone] Wy dictrini es 198 [facility] 2020-01-28 2020-01-28 [facility] 1.2.840.114 [id number] 00:00:00 00:00:00 [facility] 350.1.13.10 Surgical 4.2.7.2.686 Specialti [phone] es [address] [place] [address] 2020-01-01 2020-01-01 [facility] [id number] 4P-20 Univers 00:00:00 00:00:00 JOAQUÍN [id number] ity of [facility] 2019-12-26 2019-12-26 [place] [facility] 1.2.840.114 [id number] Univers 00:00:00 00:00:00 [facility] 350.1.13.10 it y of Surgical 4.2.7.2.686 Matt as Specialti [phone] Wy dical es 198 [facility] 2019-12-26 2019-12-26 [place] [facility] 1.2.840.114 [id number] Univers 00:00:00 00:00:00 [facility] 350.1.13.10 it y of Surgical 4.2.7.2.686 Matt as Specialti [phone] Wy dical es 198 [facility] 2019-12-26 2019-12-26 Telephone [facility] 1.2.840.114 [id number] 00:00:00 00:00:00 [facility] 350.1.13.10 Surgical 4.2.7.2.686 Specialti [phone] es [address] [place] 2019-12-26 2019-12-26 Telephone [facility] 1.2.840.114 [id number] 00:00:00 00:00:00 [facility] 350.1.13.10 Surgical 4.2.7.2.686 Specialti [phone] es [address] [place] 2019-12-16 2019-12-17 Office [facility] 1.2.344.039 [id number] [facility] 16:15:48 10:13:00 Visit [facility] 350.1.13.10 it y of Surgical 4.2.7.2.686 Matt as Specialti [phone] Me dical es 198 [facility] 2019-12-16 2019-12-17 Office [facility] 1.2.078.571 [id number] 16:15:48 10:13:00 Visit [facility] 350.1.13.10 Surgical 4.2.7.2.686 Specialti [id number] es [address] [place] 2019-12-16 2019-12-16 [facility] [id number] Univers 16:34:01 23:59:[address] [facility] 2019-12-16 2019-12-16 [facility] 1.2.840.114 [id number] Univers 16:34:00 23:59:00 Encounter [facility] 350.1.13.10 ity of Surgical 4.2.7.2.686 [place] as Specialti [phone] Wy dical es 809 [facility] 2019-12-16 2019-12-16 [facility] [id number] 4P-20 Univers 16:00:00 16:00:00 JOAQUÍN [id number] ity [facility] 2019-12-16 2019-12-16 Orders Doctor CARLOS 1.2.840.114 [id number] Univers 00:00:00 00:00:00 Only Unassigned, JUANY 350.1.13.10 ity of [place] [facility] 4.2.7.2.686 Matt as [phone] [address] Results Test Description Test Time Test Comments Results Result Comments Source HEPATIC FUNCTION PANEL (07686) (ALB,T.PRO,BILI 2021-06-18 20 :35:07 T,BU/BC,ALT,AST,ALK PHOS) Test Item Value Reference Range Interpretation Comme nts TOTAL BILI (test code = 2876220264) 0.3 mg/dL 0.1-1.1 BILI UNCON (test code = 2536347550) 0.3 mg/dL 0.1-1.1 BILI CONJ (test code = 8145733830) 0.0 mg/dL 0.0-0.3 T PROTEIN (test code = 0450342003) 7.6 g/dL 6.3-8.2 ALBUMIN (test code = 5677366198) 4.3 g/dL 3.5-5.0 ALK PHOS (test code = 5483029534) 77 U/L 34-122 ALTv (test code = 1742-6) 42 U/L 5-35 H AST(SGOT) (test code = 3311903416) 33 U/L 13-40 Lab Interpretation (test code = 88501-4) Abnormal [facility]49239[facility] (ALB,T.PRO,BILI T,BU/BC,ALT,AST,ALK PHOS)2021-06-18 20:35:07 Test Item Value Reference Range Interpretation Comments TOTAL BILI (test code = 1640591015) 0.3 mg/dL 0.1-1.1 BILI UNCON (test code = 5176682706) 0.3 mg/dL 0.1-1.1 BILI CONJ (test code = 9130195502) 0.0 mg/dL 0.0-0.3 T PROTEIN (test code = 5117680175) 7.6 g/dL 6.3-8.2 ALBUMIN (test code = 2523250024) 4.3 g/dL 3.5-5.0 ALK PHOS (test code = 1647658154) 77 U/L 34-122 ALTv (test code = 1742-6) 42 U/L 5-35 H AST(SGOT) (test code = 7810872297) 33 U/L 13-40 Lab Interpretation (test code = Abnormal 89892-8) [facility] METABOLIC PANEL (NA, K, CL, CO2, GLUCOSE, BUN, CREATININE, CA)2021-06-18 20:34:47 Test Item Value Reference Range Interpretation Comments NA (test code = 136 mmol/L 135-145 0977814472) K (test code = 4.3 mmol/L 3.5-5.0 2962348889) CL (test code = 105 mmol/L 98-108 2779004016) CO2 TOTAL (test code = 24 mmol/L 23-31 4621313291) AGAP (test code = 2-16 9505673851) BUN (test code = 9 mg/dL 7-23 9617781613) GLUCOSE (test code = 112 mg/dL 70-110 H 4792566070) CREATININE (test code = 0.80 mg/dL 0.50-1.04 0267009016) CALCIUM (test code = 8.8 mg/dL 8.6-10.6 2309299729) eGFR (test code = mL/min/1.73m2 2941980815) ISAMAR (test code = ISAMAR) Association of [...] tests). Lab Interpretation Abnormal (test code = 55128-2) [facility] Test Item Value Reference Range Interpretation Comments LIPASE (test code = 8798146214) 74 U/L 0-220 Lab Interpretation (test code = Normal 71799-9) [facility] (NA, K, CL, CO2, GLUCOSE, BUN, CREATININE, CA)2021-06-18 20:34:47 Test Item Value Reference Range Interpretation Comments NA (test code = 136 mmol/L 135-145 4407886917) K (test code = 4.3 mmol/L 3.5-5.0 3858676939) CL (test code = 105 mmol/L 98-108 6363064776) CO2 TOTAL (test code = 24 mmol/L 23-31 8190048015) AGAP (test code = 2-16 5174296975) BUN (test code = 9 mg/dL 7-23 3850902299) GLUCOSE (test code = 112 mg/dL 70-110 H 3181682964) CREATININE (test code = 0.80 mg/dL 0.50-1.04 3456127187) CALCIUM (test code = 8.8 mg/dL 8.6-10.6 2420405074) eGFR (test code = mL/min/1.73m2 8269394808) ISAMAR (test code = ISAMAR) Association of [...] tests). Lab Interpretation Abnormal (test code = 82985-3) [facility]47 Test Item Value Reference Range Interpretation Comments LIPASE (test code = 0953249756) 74 U/L 0-220 Lab Interpretation (test code = Normal 62275-0) [facility] WITH [id number] 20:27:26 Test Item Value Reference Range Interpretation Comments WBC (test code = See_Comment [Automated message] 4790-2) The system Bizen generated this result transmitted ref erence range: 4.30 - 1 1.10 10*3/?L. The re ference range was not u sed to interpret this result as normal/abnor mal. RBC (test code = See_Comment [Automated message] 979-8) The system Bizen generated this result transmitted ref erence range: [...] RDW-SD (test code 46.2 fL 39.0-49.9 = 64825-3) RDW-CV (test code 14.2 % 12.0-15.5 = 788-0) PLT (test code = See_Comment [Automated message] 777-3) The system whic h generated this result transmitted ref erence range: 166 - 35 8 10*3/?L. The re ference range was not u sed to interpret this result as normal/abnor mal. MPV (test code = 11.3 fL 9.5-12.9 32801-7) NRBC/100 WBC (test See_Comment [Automat ed message] code = 5133881475) The syste m which generated this result transmitted ref erence range: 0.0 - 10 .0 /100 WBCs. The refer ence range was not u sed to interpret this result as normal/abnor mal. NRBC x10^3 (test <0.01 See_Comment [Automated message] code = 1758633192) The syste m which generated this result transmitted ref erence range: 10*3/?L. The reference range was not used to interpr et this result as normal/abnormal . GRAN MAT (NEUT) % 65.2 % (test code = 770-8) IMM GRAN % (test 0.20 % code = 6000486173) LYMPH % (test code 24.7 % = 736-9) MONO % (test code 6.4 % = 5905-5) EOS % (test code = 2.6 % 713-8) BASO % (test code 0.9 % = 706-2) GRAN MAT 3.80 10*3/uL 1.88-7.09 x10^3(ANC) (test code = 8325336023) IMM GRAN x10^3 <0.03 0.00-0.06 (test code = 5838692563) LYMPH x10^3 (test 1.44 10*3/uL 1.32-3.29 code = 731-0) MONO x10^3 (test 0.37 10*3/uL 0.33-0.92 code = 742-7) EOS x10^3 (test 0.15 10*3/uL 0.03-0.39 code = 711-2) BASO x10^3 (test 0.05 10*3/uL 0.01-0.07 code = 704-7) [facility] WITH [id number] 20:27:26 Test Item Value Reference Range Interpretation Comments WBC (test code = See_Comment [Automated message] 9590-2) The system Bizen generated this result transmitted ref erence range: 4.30 - 1 1.10 10*3/?L. The re ference range was not u sed to interpret this result as normal/abnor mal. RBC (test code = See_Comment [Automated message] 449-8) The system [employer]izen generated this result transmitted ref erence range: [...] RDW-SD (test code 46.2 fL 39.0-49.9 = 65562-2) RDW-CV (test code 14.2 % 12.0-15.5 = 788-0) PLT (test code = See_Comment [Automated message] 767-3) The system Bizen generated this result transmitted ref erence range: 166 - 35 8 10*3/?L. The re ference range was not u sed to interpret this result as normal/abnor mal. MPV (test code = 11.3 fL 9.5-12.9 00170-9) NRBC/100 WBC (test See_Comment [Automat ed message] code = 6100935318) The [employer] which generated this result transmitted ref erence range: 0.0 - 10 .0 /100 WBCs. The refer ence range was not u sed to interpret this result as normal/abnor mal. NRBC x10^3 (test <0.01 See_Comment [Automated message] code = 9652855021) The syste m which generated this result transmitted ref erence range: 10*3/?L. The reference range was not used to interpr et this result as normal/abnormal . GRAN MAT (NEUT) % 65.2 % (test code = 770-8) IMM GRAN % (test 0.20 % code = 9348326771) LYMPH % (test code 24.7 % = 736-9) MONO % (test code 6.4 % = 5905-5) EOS % (test code = 2.6 % 713-8) BASO % (test code 0.9 % = 706-2) GRAN MAT 3.80 10*3/uL 1.88-7.09 x10^3(ANC) (test code = 6297755193) IMM GRAN x10^3 <0.03 0.00-0.06 (test code = 7459763340) LYMPH x10^3 (test 1.44 10*3/uL 1.32-3.29 code = 731-0) MONO x10^3 (test 0.37 10*3/uL 0.33-0.92 code = 742-7) EOS x10^3 (test 0.15 10*3/uL 0.03-0.39 code = 711-2) BASO x10^3 (test 0.05 10*3/uL 0.01-0.07 code = 704-7) [facility] [id number] 20:10:00 Test Item Value Reference Range Interpretation Comments POCT PREG (test code = 1605) negative On board controls acceptable with C present Line (test code = 3574) Lab Interpretation (test code = Normal 08975-1) [facility] [id number] 20:10:00 Test Item Value Reference Range Interpretation Comments POCT PREG (test code = 1605) negative On board controls acceptable with C present Line (test code = 3574) Lab Interpretation (test code = Normal 55845-1) [facility] [id number] 14:12:00 Test Item Value Reference Range Interpretation Comments POCT PREG (test code Negative = 1605) On board controls Yes acceptable with C Line (test code = 3574) POCT PREG LOT # (test code = 3575) POCT PREG TEST DATE (test code = 3576) ISAMAR (test code = ISAMAR) accurate development and interpretation of all internal controls [facility] [id number] 14:12:00 Test Item Value Reference Range Interpretation Comments POCT PREG (test code Negative = 1605) On board controls Yes acceptable with C Line (test code = 3574) POCT PREG LOT # (test code = 3575) POCT PREG TEST DATE (test code = 3576) ISAMAR (test code = ISAMAR) accurate development and interpretation of all internal controls [facility] [id number] 19:07:00 Test Item Value Reference Range Interpretation Comments POCT PREG (test code = 1605) Negative On board controls acceptable with C Yes Line (test code = 3574) POCT PREG LOT # (test code = 3575) POCT PREG TEST DATE (test code = 3576) Lab Interpretation (test code = Normal 78593-3) [facility] [id number] 19:07:00 Test Item Value Reference Range Interpretation Comments POCT PREG (test code = 1605) Negative On board controls acceptable with C Yes Line (test code = 3574) POCT PREG LOT # (test code = 3575) POCT PREG TEST DATE (test code = 3576) Lab Interpretation (test code = Normal 38624-7) [facility] [id number] 19:07:00 Test Item Value Reference Range Interpretation Comments POCT PREG (test code = 1605) Negative On board controls acceptable with C Yes Line (test code = 3574) POCT PREG LOT # (test code = 3575) POCT PREG TEST DATE (test code = 3576) Lab Interpretation (test code = Normal 81326-6) [facility] Met[facility] [id number] 05:20:14 Test Item Value Reference Range Interpretation Comments NA (test code = 139 mmol/L 135-145 3379568105) K (test code = 2.8 mmol/L 3.5-5.0 LL 3990992937) CL (test code = 113 mmol/L 98-108 H 7048796869) CO2 TOTAL (test code = 21 mmol/L 23-31 L 4920462156) AGAP (test code = 2-16 0217980092) BUN (test code = 10 mg/dL 7-23 7092080010) GLUCOSE (test code = 68 mg/dL 70-110 L 8534310264) CREATININE (test code = 0.47 mg/dL 0.50-1.04 L 1397723429) TOTAL BILI (test code = 0.3 mg/dL 0.1-1.0 2735877727) CALCIUM (test code = 6.7 mg/dL 8.6-10.6 L 1425726534) T PROTEIN (test code = 5.1 g/dL 6.3-8.2 L 4476391810) ALBUMIN (test code = 2.8 g/dL 3.5-5.0 L 1931637188) ALK PHOS (test code = 54 U/L 34-122 5348427263) ALTv (test code = 10 U/L 5-35 1742-6) AST(SGOT) (test code = 17 U/L 13-40 6813583023) eGFR (test code = mL/min/1.73m2 2941427795) ISAMAR (test code = ISAMAR) Association of [...] tests). Lab Interpretation Abnormal (test code = 35964-5) [facility] with [id number] 04:44:04 Test Item Value Reference Range Interpretation Comments WBC (test code = See_Comment [Automated message] 4790-2) The system [employer] generated this result transmitted ref erence range: 4.30 - 1 1.10 10*3/?L. The re ference range was not u sed to interpret this result as normal/abnor mal. RBC (test code = See_Comment [Automated message] 599-8) The system [employer]izen generated this result transmitted ref erence range: [...] RDW-SD (test code 45.1 fL 39.0-49.9 = 04893-1) RDW-CV (test code 13.8 % 12.0-15.5 = 788-0) PLT (test code = See_Comment [Automated message] 527-3) The system [employer]izen generated this result transmitted ref erence range: 166 - 35 8 10*3/?L. The re ference range was not u sed to interpret this result as normal/abnor mal. MPV (test code = 12.0 fL 9.5-12.9 01862-1) NRBC/100 WBC (test See_Comment [Automat ed message] code = 1641286354) The syste m which generated this result transmitted ref erence range: 0.0 - 10 .0 /100 WBCs. The refer ence range was not u sed to interpret this result as normal/abnor mal. NRBC x10^3 (test <0.01 See_Comment [Automated message] code = 8059230708) The syste m which generated this result transmitted ref erence range: 10*3/?L. The reference range was not used to interpr et this result as normal/abnormal . GRAN MAT (NEUT) % 50.4 % (test code = 770-8) IMM GRAN % (test 0.50 % code = 1855715500) LYMPH % (test code 37.3 % = 736-9) MONO % (test code 7.2 % = 5905-5) EOS % (test code = 3.6 % 713-8) BASO % (test code 1.0 % = 706-2) GRAN MAT 2.94 10*3/uL 1.88-7.09 x10^3(ANC) (test code = 9654131420) IMM GRAN x10^3 0.03 10*3/uL 0.00-0.06 (test code = 8345788461) LYMPH x10^3 (test 2.18 10*3/uL 1.32-3.29 code = 731-0) MONO x10^3 (test 0.42 10*3/uL 0.33-0.92 code = 742-7) EOS x10^3 (test 0.21 10*3/uL 0.03-0.39 code = 711-2) BASO x10^3 (test 0.06 10*3/uL 0.01-0.07 code = 704-7) [facility]wood[facility]ysis[facility] 04:29:33 Test Item Value Reference Range Interpretation Comments APPEARANCE (test code = Hazy Clear A 4438727074) COLOR (test code = Yellow Yellow 1862982447) PH (test code = 4.8-8.0 9951917912) SP GRAVITY (test code = 1.003-1.030 0337993688) GLU U QUAL (test code = Normal Normal 3922390554) BLOOD (test code = Negative Negative 1566828238) KETONES (test code = Negative Negative 0955181487) PROTEIN (test code = 30 mg/dL Negative A 2887-8) UROBILIN (test code = 2.0 mg/dL Normal A 6555385787) BILIRUBIN (test code = Negative Negative 3660743040) NITRITE (test code = Negative Negative 6338423637) LEUK SOULEYMANE (test code = Negative Negative 3606926217) RBC/HPF (test code = <1 See_Comment [Autom ated message] 3936139864) The system Bizen generated this result transmit [place] reference range : 0 - 3 HPF. The refe rence range was not u sed to interpret th is result as normal/abnormal . WBC/HPF (test code = <1 See_Comment [Autom ated message] 1309558223) The system [employer]izen generated this result transmit [place] reference range : 0 - 5 HPF. The refe rence range was not u sed to interpret th is result as normal/abnormal . BACTERIA (test code = Negative Negative 1544626837) MUCOUS (test code = Moderate Negative LPF A 7943669297) AMORPHOUS (test code = Rare Rare HPF 6514532868) SQ EPITH (test code = HPF 5193604942) Lab Interpretation (test Abnormal code = 02891-3) [facility]wood[facility], [id number] 04:21:21 Test Item Value Reference Range Interpretation Comments LIPASE (test code = 2419172380) 69 U/L 0-220 Lab Interpretation (test code = Normal 22253-2) [facility]woodPOCT [id number] 03:30:00 Test Item Value Reference Range Interpretation Comments POCT PREG (test code = 1605) negative On board controls acceptable with C present Line (test code = 3574) Lab Interpretation (test code = Normal 63435-1) [facility]woodCOMP. METABOLIC PANEL (63810)2021-01-19 21:36:57 Test Item Value Reference Range Interpretation Comments NA (test code = 139 mmol/L 135-145 9436511029) K (test code = 4.2 mmol/L 3.5-5.0 8373953427) CL (test code = 106 mmol/L 98-108 4693979265) CO2 TOTAL (test code = 24 mmol/L 23-31 5020957912) AGAP (test code = 2-16 5554311778) BUN (test code = 20 mg/dL 7-23 7147265294) GLUCOSE (test code = 89 mg/dL 70-110 9648577765) CREATININE (test code = 0.73 mg/dL 0.50-1.04 9875095914) TOTAL BILI (test code = 0.6 mg/dL 0.1-1.5 4177726053) CALCIUM (test code = 9.0 mg/dL 8.6-10.6 0965783756) T PROTEIN (test code = 7.5 g/dL 6.3-8.2 6420296206) ALBUMIN (test code = 4.5 g/dL 3.5-5.0 6813183553) ALK PHOS (test code = 87 U/L 34-122 8639305332) ALTv (test code = 24 U/L 5-35 1742-6) AST(SGOT) (test code = 42 U/L 13-40 H 8215675110) eGFR (test code = mL/min/1.73m2 1651615384) ISAMAR (test code = ISAMAR) Association of [...] tests). Lab Interpretation Abnormal (test code = 81465-9) [facility]2021-[facility]-20 21:25:51 Test Item Value Reference Range Interpretation Comments APPEARANCE (test code = Hazy Clear A 4962646880) COLOR (test code = Yellow Yellow 6853208583) PH (test code = 4.8-8.0 6574648831) SP GRAVITY (test code = 1.003-1.030 H 7782881539) GLU U QUAL (test code = Normal Normal 5276531802) BLOOD (test code = Negative Negative 5534972471) KETONES (test code = 5 mg/dL Negative A 3906237405) PROTEIN (test code = 30 mg/dL Negative A 2887-8) UROBILIN (test code = 2.0 mg/dL Normal A 1068932759) BILIRUBIN (test code = Negative Negative 8542269204) NITRITE (test code = Negative Negative 0713566089) LEUK SOULEYMANE (test code = Negative Negative 0268337972) RBC/HPF (test code = See_Comment H [Autom ated message] 5169481661) The system Bizen generated this result transmit [place] reference range : 0 - 3 HPF. The refe rence range was not u sed to interpret th is result as normal/abnormal . WBC/HPF (test code = See_Comment [Autom ated message] 6998114359) The system [employer]izen generated this result transmit [place] reference range : 0 - 5 HPF. The refe rence range was not u sed to interpret th is result as normal/abnormal . BACTERIA (test code = Negative Negative 1936554634) MUCOUS (test code = Marked Negative LPF A 2843277825) SQ EPITH (test code = HPF 4445390737) Lab Interpretation (test Abnormal code = 99033-4) [facility]woodCT ABDOMEN PELVIS W [id number] 21:15:43CT Abdomen and Pelvis with intravenous contrast. [...] a large 5.5 cm size partially calcified uterinefibroid.[facility] WITH DIFF 2021-01-19 21:09:09 Test Item Value Reference Range Interpretation Comments WBC (test code = See_Comment [Automated message] 6690-2) The system [employer]izen generated this result transmitted ref erence range: 4.30 - 1 1.10 10*3/?L. The re ference range was not u sed to interpret this result as normal/abnor mal. RBC (test code = See_Comment [Automated message] 789-8) The system [employer]izen generated this result transmitted ref erence range: [...] RDW-SD (test code 45.5 fL 39.0-49.9 = 40622-0) RDW-CV (test code 14.0 % 12.0-15.5 = 788-0) PLT (test code = See_Comment [Automated message] 777-3) The system [employer]izen generated this result transmitted ref erence range: 166 - 35 8 10*3/?L. The re ference range was not u sed to interpret this result as normal/abnor mal. MPV (test code = 11.4 fL 9.5-12.9 12555-5) NRBC/100 WBC (test See_Comment [Automat ed message] code = 5110133797) The syste [employer] which generated this result transmitted ref erence range: 0.0 - 10 .0 /100 WBCs. The refer ence range was not u sed to interpret this result as normal/abnor mal. NRBC x10^3 (test <0.01 See_Comment [Automated message] code = 1454648040) The syste m which generated this result transmitted ref erence range: 10*3/?L. The reference range was not used to interpr et this result as normal/abnormal . GRAN MAT (NEUT) % 68.5 % (test code = 770-8) IMM GRAN % (test 0.40 % code = 8086935233) LYMPH % (test code 23.1 % = 736-9) MONO % (test code 6.1 % = 5905-5) EOS % (test code = 1.2 % 713-8) BASO % (test code 0.7 % = 706-2) GRAN MAT 5.18 10*3/uL 1.88-7.09 x10^3(ANC) (test code = 9115244553) IMM GRAN x10^3 0.03 10*3/uL 0.00-0.06 (test code = 1650598828) LYMPH x10^3 (test 1.75 10*3/uL 1.32-3.29 code = 731-0) MONO x10^3 (test 0.46 10*3/uL 0.33-0.92 code = 742-7) EOS x10^3 (test 0.09 10*3/uL 0.03-0.39 code = 711-2) BASO x10^3 (test 0.05 10*3/uL 0.01-0.07 code = 704-7) [facility]PO[facility] [id number] 20:54:00 Test Item Value Reference Range Interpretation Comments POCT PREG (test code = 1605) neg On board controls acceptable with yes C Line (test code = 3574) POCT PREG LOT # (test code = 3575) [id number] POCT PREG TEST DATE (test 08/31/2022 code = 3576) Lab Interpretation (test code = Normal 29242-7) [facility]2021-[facility]-10 01:31:00 Test Item Value Reference Range Interpretation Comments APPEARANCE (test code = Clear Clear 9761682744) COLOR (test code = Yellow Yellow 0839830725) PH (test code = 4.8-8.0 9266039612) SP GRAVITY (test code = 1.003-1.030 8696488516) GLU U QUAL (test code = Normal Normal 8313145827) BLOOD (test code = Negative Negative 5972852860) KETONES (test code = 5 mg/dL Negative A 7098840894) PROTEIN (test code = Negative Negative 2887-8) UROBILIN (test code = 2.0 mg/dL Normal A 1495351057) BILIRUBIN (test code = Negative Negative 2159644761) NITRITE (test code = Negative Negative 1693327161) LEUK SOULEYMANE (test code = Negative Negative 4265217497) RBC/HPF (test code = See_Comment [Autom ated message] 4040613388) The system [employer]izen generated this result transmit [place] reference range : 0 - 3 HPF. The refe rence range was not u sed to interpret th is result as normal/abnormal . WBC/HPF (test code = See_Comment [Autom ated message] 6953245065) The system [employer] generated this result transmit [place] reference range : 0 - 5 HPF. The refe rence range was not u sed to interpret th is result as normal/abnormal . BACTERIA (test code = Negative Negative 6493638721) MUCOUS (test code = Slight Negative LPF A 8839053680) SQ EPITH (test code = <1 HPF 3210425550) Lab Interpretation (test Abnormal code = 58880-7) [facility]woodXR KNEE <3 VW [id number] 21:49:55 Narrowing on right knee 4mm, [facility] fractureUnCu[facility]"
[2022-06-09 16:45] LABS: Urine Blood Negative (Negative); Urine Glucose Negative (Negative); Urine Protein Negative (Negative); Urine Specific Gravity 1.025 (1.005-1.030)
[2022-06-09 16:52] LABS: Absolute Lymphocytes (CBC) 1.9 K/uL (0.7-4.9); Hematocrit 40.9 % (36.0-45.0); Lymphocytes % 31.9 % (15.3-44.8); MCV 93.2 fL (80-100); MPV 9.1 fL (7.6-11.3); RBC Red Blood Cell Count 4.39 M/uL (3.86-4.86)
[2022-06-09 17:07] LABS: Urine Bacteria <20 /HPF (<20); Urine RBC <5 /HPF (None Seen)
[2022-06-09 17:08] LABS: Albumin 3.3 g/dL (3.4-5.0); Bilirubin Total 0.2 mg/dL (0.2-1.0)
--- NOTE | 2022-06-09 18:05 | RAD REPORT ---
EXAM DESCRIPTION: CT - Abdomen Pelvis W Contrast - 06/09/2022 5:49 pm CLINICAL HISTORY: LLQ abdominal pain COMPARISON: CT ABD PELVIS W CONTRAST dated 05/05/2015 TECHNIQUE: Biphasic, helical CT imaging of the abdomen and pelvis was performed following 100 ml non -ionic IV contrast. No oral contrast administered. All CT scans are performed using dose optimization technique as appropriate and may include automated exposure control or mA/KV adjustment according to patient size. FINDINGS: No suspicious findings in the lung bases. The liver, spleen, and pancreas show no suspicious findings. Gallbladder is only partially filled. Ga llstones can be occult. No biliary tree dilatation. Symmetric renal function is seen with no hydronephrosis or suspicious renal mass. No pyelonephritis o r acute parenchymal process. No bladder abnormalities. No adrenal abnormalities. IUD is well position ed in the fundal portion of the uterus. Approximately 4.7 centimeter fundal fibroid is present. This is probably enlarged from 2017. Ovaries are identified and show no suspicious findings. No dilated bowel loops or bowel wall thickening. Appendix is not clearly defined. No direct or indire ct evidence for appendicitis. Patient has minimal left-sided diverticulosis without diverticulitis. N o free air, free fluid or inflammatory stranding. No mass otherwise noted. No bulky lymphadenopathy. The patient has a 3 centimeter fat only umbilical hernia. There is a supraumbilical hernia that is a pproximately 7.5 cm in diameter with a 1.5 cm neck. No congested or edematous fat. S is not significa ntly different from the comparison. No suspicious bony findings. IMPRESSION: Contrast enhanced CT abdomen and pelvis showing no acute or emergent finding. The patient has small umbilical and large supraumbilical fat only hernias. No congested or edematous fat. These are not substantially different from the comparison study. A heterogeneously enhancing 4.7 centimeter exophytic fundal uterine fibroid is present appearing larg er than 2015 comparison.
--- NOTE | 2022-06-09 18:16 | EDPHYS ---
Physician Documentation [facility] Name: Kristina Christensen Age: 37 yrs Sex: Female : 1985 Arrival Date: 06/09/2022 Time: 16:11 Bed 10 Private MD: ED Physician Fly Basurto HPI: 06/09 16:16 This 37 yrs old Black Female presents to ER via Unassigned with complaints of Left ms3 lower quadrant abdominal pain. 16:16 37-year-old female with past medical history of ovarian cancer, epilepsy, Crohn's ms3 disease presents for left lower quadrant abdominal pain for 2 days. Patient states pain is a 9/10 and feels like the sensation of something pulling. Patient endorses nausea and vomiting x3. Patient denies alleviating or inciting factors. Patient denies fevers, chills, sick contacts.. Historical: - Allergies: 16:26 tramadol; ld1 - PMHx: 16:26 Cancer; remission from cervical cancer for 3.5 years; Cerebrovascular accident; ld1 Crohn's; Hypertension; Seizures; - PSHx: 16:26 Ligation of fallopian tube; ld1 - Immunization history:: Adult Immunizations up to date, Client reports having NOT received the Covid vaccine. - Social history:: Smoking status: Patient denies any tobacco usage or history of. Patient/guardian denies using alcohol. ROS: 16:16 Constitutional: Negative for fever, and chills. Neck: Negative for injury, pain, and ms3 swelling, Cardiovascular: Negative for chest pain, and palpitations. Respiratory: Negative for shortness of breath, cough, wheezing, and pleuritic chest pain. 16:16 Abdomen/GI: Positive for abdominal pain, nausea and vomiting. 16:16 All other systems are negative. Exam: 16:16 Constitutional: This is a well developed, well nourished patient who is awake, alert, ms3 and in no acute distress. Head/Face: Normocephalic, atraumatic. Neck: Trachea midline, no cervical lymphadenopathy. Supple, full range of motion without nuchal rigidity, or vertebral point tenderness. No Meningismus. Chest/axilla: Normal chest wall appearance and motion. Nontender with no deformity. Cardiovascular: Regular rate and rhythm with a normal S1 and S2. No gallops, murmurs, or rubs. Normal PMI, no JVD. No pulse deficits. Respiratory: Lungs have equal breath sounds bilaterally, clear to auscultation and percussion. No rales, rhonchi or wheezes noted. No increased work of breathing, no retractions or nasal flaring. 16:16 Abdomen/GI: Inspection: abdomen appears normal, Bowel sounds: normal, Palpation: moderate abdominal tenderness, in the left lower quadrant. Vital Signs: 16:26 BP 130 / 90; Pulse 80; Resp 18; Temp 97.9(O); Pulse Ox 99% on R/A; Weight 90.72 kg; ld1 Height 5 ft. 9 in. (175.26 cm); Pain 9/10; 16:26 Body Mass Index 29.53 (90.72 kg, 175.26 cm) ld1 MDM: 16:11 Patient medically screened. ms3 16:16 Differential diagnosis: bowel obstruction, diverticulitis, Irritable bowel syndrome. ms3 18:26 Data reviewed: vital signs, nurses notes, lab test result(s), radiologic studies, and ms3 as a result, I will discharge patient. Counseling: I had a detailed discussion with the patient and/or guardian regarding: the historical points, exam findings, and any diagnostic results supporting the discharge/admit diagnosis, lab results, radiology results, the need for outpatient follow up, to return to the emergency department if symptoms worsen or persist or if there are any questions or concerns that arise at home. Special discussion: I discussed with the patient/guardian in detail that at this point there is no indication for admission to the hospital. It is understood, however, that if the symptoms persist or worsen the patient needs to return immediately for re-evaluation. I discussed with the patient the need to follow-up with the PCP/specialist for the noted incidental finding on X-ray/CT scanning. ED course: Discussed exophytic fibroid with patient. Patient to follow-up with Dr. Malagon and Dr. Townsend in 2 to 3 days. Patient stands agrees with plan. All questions were answered. Return precautions discussed include worsening symptoms, or any other concerns. On reevaluation patient symptoms improved, patient in no apparent distress, alert and oriented x4, [facility] Emergency [facility], speaking full sentences.. 06/09 16:15 Order name: CBC with Diff; Complete Time: 18:07 ms3 06/09 16:15 Order name: CMP; Complete Time: 18:07 ms3 06/09 16:15 Order name: Lipase; Complete Time: 18:07 ms3 06/09 16:15 Order name: Urine Microscopic Only; Complete Time: 18:07 ms3 06/09 16:46 Order name: Urine Dipstick-Ancillary; Complete Time: 18:07 EDMS 06/09 16:48 Order name: Urine --Ancillary (enter results) bd 06/09 16:15 Order name: CT Abd/Pelvis - IV Contrast Only; Complete Time: 18:07 ms3 06/09 16:15 Order name: IV Saline Lock; Complete Time: 17:45 ms3 06/09 16:15 Order name: Labs collected and sent; Complete Time: 17:45 ms3 06/09 16:15 Order name: Urine Dipstick-Ancillary (obtain specimen); Complete Time: 17:45 ms3 06/09 16:15 Order name: Urine Test (obtain specimen); Complete Time: 17:45 ms3 Administered Medications: 18:40 Drug: morphine 4 mg Route: IVP; Infused Over: 4 mins; Site: left antecubital; eh3 19:10 Follow up: Response: No adverse reaction; Pain is decreased iw 18:41 Drug: NS 0.9% 1000 ml Route: IV; Rate: 1 bolus; Site: left antecubital; eh3 19:00 Follow up: IV Status: Completed infusion iw 18:41 Drug: Pepcid (famotidine) 20 mg Route: IVP; Site: left antecubital; eh3 18:41 Drug: Zofran (Ondansetron) 4 mg Route: IVP; Site: left antecubital; eh3 19:10 Follow up: Response: No adverse reaction iw Disposition Summary: 06/09/22 18:15 Discharge Ordered Location: Home ms3 Condition: Stable ms3 Diagnosis - Lower abdominal pain, unspecified ms3 - Exophytic fibroid ms3 Followup: ms3 - With: Kevin Malagon MD - When: 2 - 3 days - Reason: Recheck today's complaints, Re-evaluation by your physician Followup: ms3 - With: Unruly Townsend MD - When: 2 - 3 days - Reason: Recheck today's complaints Discharge Instructions: - Discharge Summary Sheet ms3 - Abdominal Pain, Adult ms3 - Uterine Fibroids ms3 Forms: - Medication Reconciliation Form ms3 - Thank You Letter ms3 - Antibiotic Education ms3 - Prescription Opioid Use ms3 Signatures: Dispatcher [employer] EDFly Peoples, DO ms3 Carmen Ren RN RN ld1 Khadijah Dueñas RN RN eh3 Jemima Thomas RN iw
--- NOTE | 2022-06-09 18:16 | ER ---
Nurse's Notes [facility] Name: Kristina Christensen Age: 37 yrs Sex: Female : 1985 Arrival Date: 06/09/2022 Time: 16:11 Bed 10 Private MD: Diagnosis: Lower abdominal pain, unspecified;Exophytic fibroid Presentation: 06/09 16:25 Chief complaint: Patient states: N/V/ABD pain - x 2 days. Fingers and toes tingling. ld1 Using restroom more than usual. Unable to hold food down. Coronavirus screen: At this time, the client does not indicate any symptoms associated with coronavirus-19. Ebola Screen: No symptoms or risks identified at this time. Initial Sepsis Screen: Does the patient meet any 2 criteria? No. Patient's initial sepsis screen is negative. Does the patient have a suspected source of infection? No. Patient's initial sepsis screen is negative. Risk Assessment: Do you want to hurt yourself or someone else? Patient reports no desire to harm self or others. Onset of symptoms was June 09, 2022. 16:25 Method Of Arrival: EMS: [facility] ld1 16:25 Acuity: GAURAV 3 ld1 Triage Assessment: 16:26 General: Appears in no apparent distress. comfortable, Behavior is calm, cooperative, ld1 appropriate for age. Pain: Complains of pain in right lower quadrant and left lower quadrant Pain does not radiate. Pain Quality of pain is described as throbbing. EENT: No signs and/or symptoms were reported regarding the EENT system. Neuro: Level of Consciousness is awake, alert, obeys commands, Oriented to person, place, time, situation. Cardiovascular: Capillary refill < 3 seconds Patient's skin is warm and dry. Respiratory: Airway is patent Respiratory effort is even, unlabored. GI: Abdomen is round non-distended. : Reports urinary frequency. Derm: No signs and/or symptoms reported regarding the dermatologic system. Musculoskeletal: No signs and/or symptoms reported regarding the musculoskeletal system. Historical: - Allergies: 16:26 tramadol; ld1 - PMHx: 16:26 Cancer; remission from cervical cancer for 3.5 years; Cerebrovascular accident; ld1 Crohn's; Hypertension; Seizures; - PSHx: 16:26 Ligation of fallopian tube; ld1 - Immunization history:: Adult Immunizations up to date, Client reports having NOT received the Covid vaccine. - Social history:: Smoking status: Patient denies any tobacco usage or history of. Patient/guardian denies using alcohol. Screenin:30 Abuse screen: Denies threats or abuse. Denies injuries from another. Nutritional iw screening: No deficits noted. Tuberculosis screening: No symptoms or risk factors identified. Fall Risk None identified. Assessment: 18:15 General: Appears in no apparent distress. Behavior is calm, cooperative. Neuro: iw Rodriguez Agitation-Sedation Scale (RASS): Level of Consciousness is awake, alert, obeys commands, Moves all extremities. Full function. Derm: Skin is intact, is healthy with good turgor. Vital Signs: 16:26 BP 130 / 90; Pulse 80; Resp 18; Temp 97.9(O); Pulse Ox 99% on R/A; Weight 90.72 kg; ld1 Height 5 ft. 9 in. (175.26 cm); Pain 9/10; 16:26 Body Mass Index 29.53 (90.72 kg, 175.26 cm) ld1 ED Course: 16:11 Patient arrived in ED. ms3 16:11 Fly Basurto DO is Attending Physician. ms3 16:26 Triage completed. ld1 16:26 Arm band placed on right wrist. ld1 17:44 Urine --Ancillary (enter results) Sent. zm 17:51 CT Abd/Pelvis - IV Contrast Only In Process Unspecified. EDMS 18:12 Kevin Malagon MD is Referral Physician. ms3 18:14 Unruly Townsend MD is Referral Physician. ms3 19:09 No provider procedures requiring assistance completed. IV discontinued, intact, iw bleeding controlled, No redness/swelling at site. Pressure dressing applied. 19:10 Jemima Thomas, [facility] is Primary Nurse. iw Administered Medications: 18:40 Drug: morphine 4 mg Route: IVP; Infused Over: 4 mins; Site: left antecubital; eh3 19:10 Follow up: Response: No adverse reaction; Pain is decreased iw 18:41 Drug: NS 0.9% 1000 ml Route: IV; Rate: 1 bolus; Site: left antecubital; eh3 19:00 Follow up: IV Status: Completed infusion iw 18:41 Drug: Pepcid (famotidine) 20 mg Route: IVP; Site: left antecubital; eh3 18:41 Drug: Zofran (Ondansetron) 4 mg Route: IVP; Site: left antecubital; eh3 19:10 Follow up: Response: No adverse reaction iw Outcome: 18:15 Discharge ordered by MD. ms3 19:10 Patient left the ED. iw Signatures: Dispatcher [employer] EDJemima Waller RN RN iw Fly Basurto DO DO ms3 Carmen Ren RN RN ld1 Khadijah Dueñas RN RN eh3 Ana Cano
[2022-06-09] MEDS ORDERED: NA CHLORIDE 0.9% 1,000 ML ONE (18:38)
[2022-06-09] MEDS ORDERED: FAMOTIDINE 20 MG/2 ML VIAL IV ONE (18:38)
[2022-06-09] MEDS ORDERED: ONDANSETRON 4 MG/2 ML VIAL ONE (18:38)
[2022-06-09] MEDS ORDERED: MORPHINE 4 MG/ML SYR ONE (18:38)
[2022-06-09 20:21] VITALS: BP 130/90; TEMP 97.9; O2SAT 99
[2022-06-09 22:52] LABS: Urine Specific Gravity/Preg 1.025 (1.005-1.030)
== END 2022-06-09 19:10 | disposition home or self-care (01) ==
LOC: ER 16:04
DX: R10.32 Left lower quadrant pain (principal); D25.9 Leiomyoma of uterus, unspecified; I10 Essential (primary) hypertension; Z86.73 Personal history of transient ischemic attack (TIA), and cerebral infarction without residual deficits; Z85.41 Personal history of malignant neoplasm of cervix uteri; Z88.5 Allergy status to narcotic agent
CPT/HCPCS: 85025; 36415; 81025; 83690; 80053; 74177; 96375; 96374; 99284; Q9967; J7030; J2405; 81003; 81015

== ENCOUNTER 2022-08-12 20:55 | Emergency (ER) | payer OTHER ==
--- OUTSIDE RECORDS SUMMARY | 2022-08-12 21:06 | XMS REPORT | Continuity of Care Document ---
:1985 Author Organization [facility] t Address [address] [place] [address] Care Team Providers Name Role Phone MARVIN Foley [facility] Primary Care P hysician Unavailable Jose Harris Attending Clinician Unavailable KARLEE GOMEZ Attending Clinician Unavailable Karlee Gomez DO Attending Clinician Doctor Unassigned, Grano Attending Clinician Unavailable Nohemi Phillip Attending Clinician Mony Ortega RN Attending Clinician Unavailable TASHA DE OLIVEIRA Attending Clinician Unavailable KILEY STROUD Attending Clinician Unavailable KEYSHA VIVEROS Attending Clinician Unavailable Tasha De Oliveira MD Attending Clinician Riri Cerda Attending Clinician Sam Dodson Attending Clinician Fredrick Mina DO Attending Clinician Anton Williamson MD Attending Clinician MAIA SHRESTHA Attending Clinician Unavailable Maia Sullivan Attending Clinician KNOW, DOES_NOT Admitting Clinician Unavailable Physician, No Primary or Family Admitting Clinician Unavaila ble Payers Payer Name Policy Type Policy Number Effective Date Expiration Date Chapis CHIRINOSS [id number] 2020 HEALTH 00:00:00 MEDICAID [facility] [id number] 2019 00:00:00 MEDICAID SSI PENDING 2019 PENDING [...] of Disease Active U nivers cervical cervical 5 ity of cancer cancer 00:00: [place] 00 [...] 2-15 [place] [facility] Tramadol Propensi Active Hives 2016-10 Univer s ty to 0-09 ity of adverse 00:00: [place] reaction 00 Medical s Branch TRAMADOL DRUG Active Hives 2016-10 Univers INGREDI 0-09 ity of 00:00: [place] 00 Medical Branch Social History Social Habit Start Date Stop Date Quantity Comments Source History SDOH University o f Alcohol Frequency [place] [facility] History SDOH University o f Alcohol Std [place] [facility] Drinks Branch History SDOH University o f Alcohol Binge [place] [facility] Exposure to Not sure University of SARS-CoV-2 [facility] (event) Branch Alcohol intake 2021-10-31 2021-10-31 Current drinker Unive rsity of 00:00:00 00:00:00 of alcohol [place] [facility] (finding) Branch Tobacco use and 2021-01-27 2021-01-27 Never used Universit y of exposure 00:00:00 00:00:00 [facility] Alcohol Comment 2018-01-31 2018-01-31 social Universit y of 00:00:00 00:00:00 [facility] Sex [birth year] Universit y of 00:00:00 00:00:00 [facility] Smoking Status Start Date Stop Date Source Former smoker 2021-01-27 00:00:00 2021-01-27 [facility]:00:[facility] Never smoker [facility] Medications Ordered Filled Start Stop Current Ordering [...] 10/31/21 at 1345, OSVALDO amoxicillin 2021- No [id number] 875mg Take 1 Univers 875 mg 10-31 tablet by ity of tablet 00:00: 05:59 mouth 2 [place] 00 :00 (two) Medical times [place] daily for 10 days. iopamidol 2020- No [id number] 100mL 100 mL, Univers (ISOVUE 06-19 Intravenou ity o f 370-500 mL) 00:00: 00:00 s, ONCE, 1 [place] injection 00 :00 dose, On Medica l 100 mL Fri Branch 06/18/21 at 1900, Routine iopamidol 2020- No [id number] 100mL 100 mL, Univers (ISOVUE 06-19 Intravenou [...] Branch Mon06/18/21 at 1700, STAT ondansetron Yes [id number] 4mg Take 1 Univers (ZOFRAN 9-17 tablet [...] Indication s: acute pain ondansetron 2020-0 Yes [id number] 4mg Take 1 Univers (ZOFRAN 9-17 tablet [...] Indication s: acute pain ondansetron 2020-0 Yes [id number] 4mg Take 1 Univers (ZOFRAN 9-17 tablet [...] Indication s: acute pain ondansetron 2020-0 Yes [id number] 4mg Take 1 Univers (ZOFRAN 9-17 tablet [...] s: acute pain levonorgest 2020-0 202- No [id number] 1{devic Univers reL 03-29- e} ity of (MIRENA) 15:45: 14:35 [place] IUD 1 00 :00 [employer] Branch levonorgest 2020- No [id number] 1{devic 1 Device, Univers reL 03-29- e} Intrauteri ity of (MIRENA) 15:45: 14:35 ne, ONCE, [place] IUD 1 00 :00 1 dose, [employer] [facility] 03/29/21 at 1045, Routine levonorgest 2020- No [id number] 1{devic Univers reL 03-29- e} ity of (MIRENA) 15:45: 14:35 [place] IUD 1 00 :00 [employer] Branch levonorgest 2020- No [id number] 1{devic 1 Device, Univers reL 03-29- e} Intrauteri ity of (MIRENA) 15:45: 14:35 ne, ONCE, [place] IUD 1 00 :00 1 dose, [employer] [facility] 03/29/21 at 1045, Routine miSOPROStoL Yes [id number] 200ug Take 1 Univers 200 mcg 6-09 tablet by ity of tablet 00:00: [facility] 00 SEE-INSTRU Medical CTIONS. Branch miSOPROStoL Yes [id number] 200ug Take 1 Univers 200 mcg 6-09 tablet by ity of tablet 00:00: [facility] 00 SEE-INSTRU Medical CTIONS. Branch miSOPROStoL Yes [id number] 200ug Take 1 Univers 200 mcg 6-09 tablet by ity of tablet 00:00: [facility] 00 SEE-INSTRU Medical CTIONS. Branch miSOPROStoL 2020- No [id number] 200ug Take 1 Univers 200 mcg 6-09 -28 tablet by ity of tablet 00:00: 00:00 [facility] 00 :00 SEE-INSTRU Medical CTIONS. Branch miSOPROStoL 2020- No [id number] 200ug Take 1 Univers 200 mcg 6-09 06-28 tablet by ity of tablet 00:00: 00:00 [facility] 00 :00 SEE-INSTRU Medical CTIONS. Branch ketorolac 2020- No 30mg 30 mg, Unive rs (TORADOL) 02-22 Slow IV ity of injection 07:30: 06:33 Push, [place] 30 mg 00 :00 ONCE, 1 Medical dose, [facility] 02/22/21 at 0230, OSVALDO
Fa culty member approving Restricted medication : SHITAL, K RONI KCL 2020- No 20meq 20 mEq, IV Unive rs (POTASSIUM 02-22 Piggyback, it y of CHLORIDE) 06:30: 05:53 ONCE, 1 [place] 20 mEq in 00 :00 dose, [facility] Medic al NaCl 0.9% 02/22/21 at [facility] ch (NS) 100 mL 0130, 100 piggyback mL KCL 2020- No 40meq 40 mEq, Univers (KLOR-CON 02-22 Oral, ity of M20) tablet 06:30: 05:45 [place]CE[place] 1 [place] 40 mEq 00 :00 dose, Mon Medical 02/22/21 at [place] 0130, Routine acetaminoph 2020- No 1000mg 1,000 mg, Univers en 02-22 Oral, ity of (TYLENOL) 05:00: 04:02 ONCE, 1 [place] tablet 00 :00 dose, [facility] Medical 1,000 mg 02/22/21 at [facility] h 0000, OSVALDO ondansetron 2020- [...] 1,000 mL 00 :00 IV Medical Infusion, [place] ONCE, 1 dose, [facility] 02/22/21 at 0000, STAT iopamidol 2020- No [id number] 120mL 120 mL, Univers (ISOVUE 02-22 Intravenou ity o f 370-500 mL) 04:08: 04:11 s, ONCE, 1 [place] injection 00 :00 dose, Sun Medic al 120 mL 02/21/21 at Branch 2315, Routine polyethylen 2020- No [id number] 17g Take 17 g Univers e glycol 5-24 05-29 by mouth ity of 3350 00:00: 04:59 daily for [place] (MIRALAX) 00 :00 4 days. Medical 17 [place] gram/dose powder polyethylen 2020- No [id number] 17g Take 17 g Univers e glycol 5-24 05-29 by mouth ity of 3350 00:00: 04:59 daily for [place] (MIRALAX) 00 :00 4 days. Medical 17 [place] gram/dose powder polyethylen 2020- No [id number] 17g Take 17 g Univers e glycol 5-24 05-29 by mouth ity of 3350 00:00: 04:59 daily for [place] (MIRALAX) 00 :00 4 days. Medical 17 [place] gram/dose powder polyethylen 2020- No [id number] 17g Take 17 g Univers e glycol 5-24 05-29 by mouth ity of 3350 00:00: 04:59 daily for [place] (MIRALAX) 00 :00 4 days. Medical 17 [place] gram/dose powder miSOPROStoL Yes [id number] 200ug Take 1 Univers 200 mcg 4-28 tablet by ity of tablet 00:00: mouth [place] 00 SEE-INSTRU Medical CTIONS. Branch Take one tab the night before and one tab the morning of procedure miSOPROStoL Yes [id number] 200ug Take 1 Univers 200 mcg 4-28 tablet by ity of tablet 00:00: mouth 00 SEE-INSTRU Medical CTIONS. Branch Take one tab the night before and one tab the morning of procedure miSOPROStoL Yes [id number] 200ug Take 1 Univers 200 mcg 4-28 tablet by ity of tablet 00:00: mouth SEE-INSTRU Medical CTIONS. Branch Take one tab the night before and one tab the morning of procedure miSOPROStoL 2020- No [id number] 200ug Take 1 Univers 200 mcg 4-28 05-26 tablet by ity of tablet 00:00: 00:00 mouth [place] 00 :00 SEE-INSTRU Medical CTIONS. Branch Take one tab the night before and one tab the morning of procedure miSOPROStoL 2020- No [id number] 200ug Take 1 Univers 200 mcg 4-28 05-26 tablet by ity of tablet 00:00: 00:00 mouth [place] 00 :00 SEE-INSTRU Medical CTIONS. Branch Take one tab the night before and one tab the morning of procedure miSOPROStoL 2020- No [id number] 200ug Take 1 Univers 200 mcg 4-28 05-26 tablet by ity of tablet 00:00: 00:00 mouth [place] 00 :00 SEE-INSTRU Medical CTIONS. Branch Take one tab the night before and one tab the morning of procedure ketorolac 2020- No 15mg 15 mg, Unive rs (TORADOL) 01-19-20 Slow IV ity of injection 23:15: 22:18 Push, [place] 15 mg 00 :00 ONCE, 1 Medical dose, Tue Branch 01/19/21 at 1815, OSVALDO
Fa culty member approving Restricted medication : SMA EVANS ondansetron 2020- No 4mg 4 mg, Slow Univers (ZOFRAN 01-19-20 IV Push, ity of (PF)) 21:30: 21:29 ONCE, 1 [place] injection 4 00 :00 dose, Tue Med ical mg 01/19/21 at Branch 1630, OSVALDO iohexol 2020- No [id number] 120mL 120 mL, U nivers (OMNIPAQUE 01-19-20 Intravenou it y of 350 21:15: 21:15 s, ONCE, 1 [place] BULK-150 00 :00 dose, Tue Medica l mL) 01/19/21 at [place] injection 1615, 120 mL Routine ibuprofen Yes [id number] 800mg Take 1 U nivers 800 mg 4-20 tablet by ity of tablet 00:00: mouth [place] 00 every 8 Medical (eight) Branch hours as needed for Pain (scale 4-6). Take with food ibuprofen Yes [id number] 800mg Take 1 U nivers 800 mg 4-20 tablet by ity of tablet 00:00: mouth [place] 00 every 8 Medical (eight) Branch hours as needed for Pain (scale 4-6). Take with food ibuprofen 2021-0 Yes [id number] 800mg Take 1 U nivers 800 mg 4-20 tablet by ity of tablet 00:00: mouth [place] 00 every 8 Medical (eight) Branch hours as needed for Pain (scale 4-6). Take with food ibuprofen 2021-0 Yes [id number] 800mg Take 1 U nivers 800 mg 4-20 tablet by ity of tablet 00:00: mouth [place] 00 every 8 Medical (eight) Branch hours as needed for Pain (scale 4-6). Take with food ibuprofen 2021-0 Yes [id number] 800mg Take 1 U nivers 800 mg 4-20 tablet by ity of tablet 00:00: mouth [place] 00 every 8 Medical (eight) Branch hours as needed for Pain (scale 4-6). Take with food ibuprofen 2021-0 Yes [id number] 800mg Take 1 U nivers 800 mg 4-20 tablet by ity of tablet 00:00: mouth [place] 00 every 8 Medical (eight) Branch hours as needed for Pain (scale 4-6). Take with food ibuprofen 2021-0 Yes [id number] 800mg Take 1 U nivers 800 mg 4-20 tablet by ity of tablet 00:00: mouth [place] 00 every 8 Medical (eight) Branch hours as needed for Pain (scale 4-6). Take with food ibuprofen 2021-0 Yes [id number] 800mg Take 1 U nivers 800 mg 4-20 tablet by ity of tablet 00:00: mouth [place] 00 every 8 Medical (eight) Branch hours as needed for Pain (scale 4-6). Take with food ibuprofen 2021-0 Yes [id number] 800mg Take 1 U nivers 800 mg 4-20 tablet by ity of tablet 00:00: mouth [place] 00 every 8 Medical (eight) Branch hours as needed for Pain (scale 4-6). Take with food ibuprofen 2021-0 Yes [id number] 800mg Take 1 U nivers 800 mg 4-20 tablet by ity of tablet 00:00: mouth [place] 00 every 8 Medical (eight) Branch hours as needed for Pain (scale 4-6). Take with food ibuprofen 2021-0 Yes [id number] 800mg Take 1 U nivers 800 mg 4-20 tablet by ity of tablet 00:00: mouth [place] 00 every 8 Medical (eight) Branch hours as needed for Pain (scale 4-6). Take with food ibuprofen 2021-0 Yes [id number] 800mg Take 1 U nivers 800 mg 4-20 tablet by ity of tablet 00:00: mouth [place] 00 every 8 Medical (eight) Branch hours as needed for Pain (scale 4-6). Take with food ibuprofen 2020-0 Yes [id number] 800mg Take 1 U nivers 800 mg 4-20 tablet by ity of tablet 00:00: mouth [place] 00 every 8 Medical (eight) Branch hours as needed for Pain (scale 4-6). Take with food ibuprofen 2020-0 Yes [id number] 800mg Take 1 U nivers 800 mg 4-20 tablet by ity of tablet 00:00: mouth [place] 00 every 8 Medical (eight) Branch hours as needed for Pain (scale 4-6). Take with food ibuprofen 2020-0 Yes [id number] 800mg Take 1 U nivers 800 mg 4-20 tablet by ity of tablet 00:00: mouth [place] 00 every 8 Medical (eight) Branch hours as needed for Pain (scale 4-6). Take with food ibuprofen 2020-0 Yes [id number] 800mg Take 1 U nivers 800 mg 4-20 tablet by ity of tablet 00:00: mouth [place] 00 every 8 Medical (eight) Branch hours as needed for Pain (scale 4-6). Take with food ibuprofen 2020-0 Yes [id number] 800mg Take 1 U nivers 800 mg 4-20 tablet by ity of tablet 00:00: mouth [place] 00 every 8 Medical (eight) Branch hours as needed for Pain (scale 4-6). Take with food ibuprofen 2021-0 Yes [id number] 800mg Take 1 U nivers 800 mg 4-20 tablet by ity of tablet 00:00: mouth [place] 00 every 8 Medical (eight) Branch hours as needed for Pain (scale 4-6). Take with food ibuprofen 2021-0 Yes [id number] 800mg Take 1 U nivers 800 mg 4-20 tablet by ity of tablet 00:00: mouth [place] 00 every 8 Medical (eight) Branch hours as needed for Pain (scale 4-6). Take with food ibuprofen 2021-0 Yes [id number] 800mg Take 1 U nivers 800 mg 4-20 tablet by ity of tablet 00:00: mouth [place] 00 every 8 Medical (eight) Branch hours as needed for Pain (scale 4-6). Take with food ibuprofen 2020-0 Yes [id number] 800mg Take 1 U nivers 800 mg 4-20 tablet by ity of tablet 00:00: mouth [place] 00 every 8 Medical (eight) Branch hours as needed for Pain (scale 4-6). Take with food ibuprofen 2020-0 Yes [id number] 800mg Take 1 U nivers 800 mg 4-20 tablet by ity of tablet 00:00: mouth [place] 00 every 8 Medical (eight) Branch hours as needed for Pain (scale 4-6). Take with food ibuprofen 2020-0 Yes [id number] 800mg Take 1 U nivers 800 mg 4-20 tablet by ity of tablet 00:00: mouth [place] 00 every 8 Medical (eight) Branch hours as needed for Pain (scale 4-6). Take with food ibuprofen 2020-0 Yes [id number] 800mg Take 1 U nivers 800 mg 4-20 tablet by ity of tablet 00:00: mouth [place] 00 every 8 Medical (eight) Branch hours as needed for Pain (scale 4-6). Take with food ibuprofen 2020-0 Yes [id number] 800mg Take 1 U nivers 800 mg 4-20 tablet by ity of tablet 00:00: mouth [place] 00 every 8 Medical (eight) Branch hours as needed for Pain (scale 4-6). Take with food acetaminoph 0 202- No [id number] 1{tbl} Take 1 U nivers [...] ity of capsule 00:00: 00:00 mouth 2 [place] 00 :00 (two) Medical times Branch daily. cephALEXin 2021-0 2021- No 500mg Take 500 U nivers 500 mg 4-14 05-26 mg by ity of capsule 00:00: 00:00 mouth 2 [place] 00 :00 (two) Medical times Branch daily. cephALEXin 2021-0 2021- No 500mg Take 500 U nivers 500 mg 4-14 05-26 mg by ity of capsule 00:00: 00:00 mouth 2 [place] 00 :00 (two) Medical times Branch daily. diclofenac 2020-0 Yes 75mg Take 1 Unive rs 75 mg EC 3-26 tablet by ity of tablet 00:00: mouth ([facility]) Medical times Branch daily with meals. diclofenac 2020-0 Yes 75mg Take 1 Unive rs 75 mg EC 3-26 tablet by ity of tablet 00:00: mouth [place] (two) Medical times Branch daily with meals. diclofenac 2020-0 Yes 75mg Take 1 Unive rs 75 mg EC 3-26 tablet by ity of tablet 00:00: mouth [place] (two) Medical times Branch daily with meals. diclofenac 2020-0 Yes 75mg Take 1 Unive rs 75 mg EC 3-26 tablet by ity of tablet 00:00: mouth [place] (two) Medical times Branch daily with meals. diclofenac 2020-0 Yes 75mg Take 1 Unive rs 75 mg EC 3-26 tablet by ity of tablet 00:00: mouth [place] (two) Medical times Branch daily with meals. diclofenac 2020-0 Yes 75mg Take 1 Unive rs 75 mg EC 3-26 tablet by ity of tablet 00:00: mouth [place] (two) Medical times Branch daily with meals. diclofenac 2020-0 Yes 75mg Take 1 Unive rs 75 mg EC 3-26 tablet by ity of tablet 00:00: mouth [place] (two) Medical times Branch daily with meals. [...] Branch daily with meals. cloNIDine 2019-0 Yes [id number] .1mg Take 1 Un dani 0.1 mg 7-24 tablet by ity of tablet 00:00: mouth (two) Medical times Branch daily. cloNIDine 2019-0 Yes [id number] .1mg Take 1 Un dani 0.1 mg 7-24 tablet by ity of tablet 00:00: mouth (two) Medical times Branch daily. cloNIDine 2019-0 Yes [id number] .1mg Take 1 Un dani 0.1 mg 7-24 tablet by ity of tablet 00:00: mouth (two) Medical times Branch daily. cloNIDine 2019-0 Yes [id number] .1mg Take 1 Un dain 0.1 mg 7-24 tablet by ity of tablet 00:00: mouth (two) Medical times Branch daily. cloNIDine 2019-0 Yes [id number] .1mg Take 1 Un dani 0.1 mg 7-24 tablet by ity of tablet 00:00: mouth (two) Medical times Branch daily. cloNIDine 2019-0 Yes [id number] .1mg Take 1 Un dani 0.1 mg 7-24 tablet by ity of tablet 00:00: mouth (two) Medical times Branch daily. cloNIDine 2019-0 Yes [id number] .1mg Take 1 Un dani 0.1 mg 7-24 tablet by ity of tablet 00:00: mouth (two) Medical times Branch daily. cloNIDine 2019-0 Yes [id number] .1mg Take 1 Un dani 0.1 mg 7-24 tablet by ity of tablet 00:00: mouth 2 (two) Medical times Branch daily. cloNIDine 2019-0 Yes [id number] .1mg Take 1 Un dani 0.1 mg 7-24 tablet by ity of tablet 00:00: mouth (two) Medical times Branch daily. cloNIDine 2019-0 Yes [id number] .1mg Take 1 Un dani 0.1 mg 7-24 tablet by ity of tablet 00:00: mouth (two) Medical times Branch daily. cloNIDine 2019-0 Yes [id number] .1mg Take 1 Un dani 0.1 mg 7-24 tablet by ity of tablet 00:00: mouth (two) Medical times Branch daily. cloNIDine 2019-0 Yes [id number] .1mg Take 1 Un dani 0.1 mg 7-24 tablet by ity of tablet 00:00: mouth (two) Medical times Branch daily. cloNIDine 2019-0 Yes [id number] .1mg Take 1 Un dani 0.1 mg 7-24 tablet by ity of tablet 00:00: mouth (two) Medical times Branch daily. cloNIDine 2019-0 Yes [id number] .1mg Take 1 Un dani 0.1 mg 7-24 tablet by ity of tablet 00:00: mouth (two) Medical times Branch daily. cloNIDine 2019-0 Yes [id number] .1mg Take 1 Un dani 0.1 mg 7-24 tablet by ity of tablet 00:00: mouth (two) Medical times Branch daily. cloNIDine 2019-0 Yes [id number] .1mg Take 1 Un dani 0.1 mg 7-24 tablet by ity of tablet 00:00: mouth 2 (two) Medical times Branch daily. cloNIDine 2019-0 Yes [id number] .1mg Take 1 Un dani 0.1 mg 7-24 tablet by ity of tablet 00:00: mouth 2 (two) Medical times Branch daily. cloNIDine 2019-0 Yes [id number] .1mg Take 1 Un dani 0.1 mg 7-24 tablet by ity of tablet 00:00: mouth (two) Medical times Branch daily. cloNIDine 2019-0 Yes [id number] .1mg Take 1 Un dani 0.1 mg 7-24 tablet by ity of tablet 00:00: mouth (two) Medical times Branch daily. cloNIDine 2019-0 Yes [id number] .1mg Take 1 Un dani 0.1 mg 7-24 tablet by ity of tablet 00:00: mouth (two) Medical times Branch daily. cloNIDine 2019-0 Yes [id number] .1mg Take 1 Un dani 0.1 mg 7-24 tablet by ity of tablet 00:00: mouth (two) Medical times Branch daily. cloNIDine 2019-0 Yes [id number] .1mg Take 1 Un dani 0.1 mg 7-24 tablet by ity of tablet 00:00: mouth (two) Medical times Branch daily. cloNIDine 2019-0 Yes [id number] .1mg Take 1 Un dani 0.1 mg 7-24 tablet by ity of tablet 00:00: mouth (two) Medical times Branch daily. cloNIDine 2019-0 Yes [id number] .1mg Take 1 Un dani 0.1 mg 7-24 tablet by ity of tablet 00:00: mouth (two) Medical times Branch daily. cloNIDine 2019-0 Yes [id number] .1mg Take 1 Un dani 0.1 mg 7-24 tablet by ity of tablet 00:00: mouth (two) Medical times Branch daily. cloNIDine 2019-0 Yes [id number] .1mg Take 1 Un dani 0.1 mg 7-24 tablet by ity of tablet 00:00: mouth (two) Medical times Branch daily. cloNIDine 2019-0 Yes [id number] .1mg Take 1 Un dani 0.1 mg 7-24 tablet by ity of tablet 00:00: mouth 2 (two) Medical times Branch daily. cloNIDine 2019-0 Yes [id number] .1mg Take 1 Un dani 0.1 mg 7-24 tablet by ity of tablet 00:00: mouth 2 (two) Medical times Branch daily. cloNIDine 2019-0 Yes [id number] .1mg Take 1 Un dani 0.1 mg 7-24 tablet by ity of tablet 00:00: mouth (two) Medical times Branch daily. cloNIDine 2019-0 Yes [id number] .1mg Take 1 Un dani 0.1 mg 7-24 tablet by ity of tablet 00:00: mouth 2 (two) Medical times Branch daily. cloNIDine 2019-0 Yes [id number] .1mg Take 1 Un dani 0.1 mg 7-24 tablet by ity of tablet 00:00: mouth (two) Medical times Branch daily. cloNIDine 2019-0 Yes [id number] .1mg Take 1 Un dani 0.1 mg 7-24 tablet by ity of tablet 00:00: mouth (two) Medical times Branch daily. cloNIDine 2019-0 Yes [id number] .1mg Take 1 Un dani 0.1 mg 7-24 tablet by ity of tablet 00:00: mouth (two) Medical times Branch daily. cloNIDine 2019-0 Yes [id number] .1mg Take 1 Un dani 0.1 mg 7-24 tablet by ity of tablet 00:00: mouth (two) Medical times Branch daily. cloNIDine 2019-0 Yes [id number] .1mg Take 1 Un dani 0.1 mg 7-24 tablet by ity of tablet 00:00: mouth (two) Medical times Branch daily. cloNIDine 2019-0 Yes [id number] .1mg Take 1 Un dani 0.1 mg 7-24 tablet by ity of tablet 00:00: mouth (two) Medical times Branch daily. cloNIDine 2019-0 Yes [id number] .1mg Take 1 Un dani 0.1 mg 7-24 tablet by ity of tablet 00:00: mouth (two) Medical times Branch daily. cloNIDine 2019-0 Yes [id number] .1mg Take 1 Un dani 0.1 mg 7-24 tablet by ity of tablet 00:00: mouth (two) Medical times Branch daily. cloNIDine 2019-0 Yes [id number] .1mg Take 1 Un dani 0.1 mg 7-24 tablet by ity of tablet 00:00: mouth 2 (two) Medical times Branch daily. acetaminoph 2019-0 Yes [id number] 1{tbl} Take 1 Univers en-codeine 1-16 tablet by ity of (TYLENOL-CO 00:00: mouth [place] DEINE #3) 00 every 4 Medical 300-30 mg (four) Branch tablet hours as needed for Pain (scale 7-10). amoxicillin Yes [id number] 500mg Take 1 Univers 500 mg 1-16 capsule by ity of capsule 00:00: mouth 3 [place] 00 (three) Medical times Branch daily. acetaminoph Yes [id number] 1{tbl} Take 1 Univers en-codeine 1-16 tablet by ity of (TYLENOL-CO 00:00: mouth [place] DEINE #3) 00 every 4 Medical 300-30 mg (four) Branch tablet hours as needed for Pain (scale 7-10). amoxicillin Yes [id number] 500mg Take 1 Univers 500 mg 1-16 capsule by ity of capsule 00:00: mouth 3 [place] 00 (three) Medical times Branch daily. acetaminoph Yes [id number] 1{tbl} Take 1 Univers en-codeine 1-16 tablet by ity of (TYLENOL-CO 00:00: mouth [place] DEINE #3) 00 every 4 Medical 300-30 mg (four) Branch tablet hours as needed for Pain (scale 7-10). amoxicillin Yes [id number] 500mg Take 1 Univers 500 mg 1-16 capsule by ity of capsule 00:00: mouth 3 [place] 00 (three) Medical times Branch daily. acetaminoph Yes [id number] 1{tbl} Take 1 Univers en-codeine 1-16 tablet by ity of (TYLENOL-CO 00:00: mouth [place] DEINE #3) 00 every 4 Medical 300-30 mg (four) Branch tablet hours as needed for Pain (scale 7-10). amoxicillin Yes [id number] 500mg Take 1 Univers 500 mg 1-16 capsule by ity of capsule 00:00: mouth 3 [place] 00 (three) Medical times Branch daily. acetaminoph Yes [id number] 1{tbl} Take 1 Univers en-codeine 1-16 tablet by ity of (TYLENOL-CO 00:00: mouth [place] DEINE #3) 00 every 4 Medical 300-30 mg (four) Branch tablet hours as needed for Pain (scale 7-10). amoxicillin 2019-0 Yes [id number] 500mg Take 1 Univers 500 mg 1-16 capsule by ity of capsule 00:00: mouth 3 [place] 00 (three) Medical times Branch daily. acetaminoph 2019-0 Yes [id number] 1{tbl} Take 1 Univers en-codeine 1-16 tablet by ity of (TYLENOL-CO 00:00: mouth [place] DEINE #3) 00 every 4 Medical 300-30 mg (four) Branch tablet hours as needed for Pain (scale 7-10). amoxicillin 2018-0 Yes [id number] 500mg Take 1 Univers 500 mg 1-16 capsule by ity of capsule 00:00: mouth 3 [place] 00 (three) Medical times Branch daily. acetaminoph 0 Yes [id number] 1{tbl} Take 1 Univers en-codeine 1-16 tablet by ity of (TYLENOL-CO 00:00: mouth [place] DEINE #3) 00 every 4 Medical 300-30 mg (four) Branch tablet hours as needed for Pain (scale 7-10). amoxicillin 0 Yes [id number] 500mg Take 1 Univers 500 mg 1-16 capsule by ity of capsule 00:00: mouth 3 [place] 00 (three) Medical times Branch daily. acetaminoph 0 Yes [id number] 1{tbl} Take 1 Univers en-codeine 1-16 tablet by ity of (TYLENOL-CO 00:00: mouth [place] DEINE #3) 00 every 4 Medical 300-30 mg (four) Branch tablet hours as needed for Pain (scale 7-10). amoxicillin 2018-0 Yes [id number] 500mg Take 1 Univers 500 mg 1-16 capsule by ity of capsule 00:00: mouth 3 [place] 00 (three) Medical times Branch daily. acetaminoph 2019-0 Yes [id number] 1{tbl} Take 1 Univers en-codeine 1-16 tablet by ity of (TYLENOL-CO 00:00: mouth [place] DEINE #3) 00 every 4 Medical 300-30 mg (four) Branch tablet hours as needed for Pain (scale 7-10). amoxicillin 2019-0 Yes [id number] 500mg Take 1 Univers 500 mg 1-16 capsule by ity of capsule 00:00: mouth 3 [place] 00 (three) Medical times Branch daily. acetaminoph [id number] Yes [id number] 1{tbl} Take 1 Univers en-codeine 1-16 tablet by ity of (TYLENOL-CO 00:00: mouth [place] DEINE #3) 00 every 4 Medical 300-30 mg (four) Branch tablet hours as needed for Pain (scale 7-10). amoxicillin Yes [id number] 500mg Take 1 [facility] 500 mg 1-16 capsule by ity of capsule 00:00: mouth 3 [place] 00 (three) Medical times Branch daily. acetaminoph Yes [id number] 1{tbl} Take 1 [facility] en-codeine 1-16 tablet by ity of (TYLENOL-CO 00:00: mouth [place] DEINE #3) 00 every 4 Medical 300-30 mg (four) Branch tablet hours as needed for Pain (scale 7-10). amoxicillin Yes [id number] 500mg Take 1 [facility] 500 mg 1-16 capsule by ity of capsule 00:00: mouth 3 [place] 00 (three) Medical times Branch daily. acetaminoph Yes [id number] 1{tbl} Take 1 [facility] en-codeine 1-16 tablet by ity of (TYLENOL-CO 00:00: mouth [place] DEINE #3) 00 every 4 Medical 300-30 mg (four) Branch tablet hours as needed for Pain (scale 7-10). amoxicillin Yes [id number] 500mg Take 1 [facility] 500 mg 1-16 capsule by ity of capsule 00:00: mouth 3 [place] 00 (three) Medical times Branch daily. acetaminoph Yes [id number] 1{tbl} Take 1 [facility] en-codeine 1-16 tablet by ity of (TYLENOL-CO 00:00: mouth [place] DEINE #3) 00 every 4 Medical 300-30 mg (four) Branch tablet hours as needed for Pain (scale 7-10). amoxicillin Yes [id number] 500mg Take 1 [facility] 500 mg 1-16 capsule by ity of capsule 00:00: mouth 3 [place] 00 (three) Medical times Branch daily. acetaminoph Yes [id number] 1{tbl} Take 1 [facility] en-codeine 1-16 tablet by ity of (TYLENOL-CO 00:00: mouth [place] DEINE #3) 00 every 4 Medical 300-30 mg (four) Branch tablet hours as needed for Pain (scale 7-10). amoxicillin Yes [id number] 500mg Take 1 [facility] 500 mg 1-16 capsule by ity of capsule 00:00: mouth 3 [place] 00 (three) Medical times Branch daily. acetaminoph Yes [id number] 1{tbl} Take 1 [facility] en-codeine 1-16 tablet by ity of (TYLENOL-CO 00:00: mouth [place] DEINE #3) 00 every 4 Medical 300-30 mg (four) Branch tablet hours as needed for Pain (scale 7-10). amoxicillin Yes [id number] 500mg Take 1 [facility] 500 mg 1-16 capsule by ity of capsule 00:00: mouth 3 [place] 00 (three) Medical times Branch daily. acetaminoph Yes [id number] 1{tbl} Take 1 [facility] en-codeine 1-16 tablet by ity of (TYLENOL-CO 00:00: mouth [place] DEINE #3) 00 every 4 Medical 300-30 mg (four) Branch tablet hours as needed for Pain (scale 7-10). amoxicillin Yes [id number] 500mg Take 1 [facility] 500 mg 1-16 capsule by ity of capsule 00:00: mouth 3 [place] 00 (three) Medical times Branch daily. acetaminoph 2020- No [id number] 1{tbl} Take 1 [facility] en-codeine 1-16 04-28 tablet by ity of (TYLENOL-CO 00:00: 00:[place] DE[place] #3[place] 00 :00 every 4 Medical 300-30 mg (four) Branch tablet hours as needed for Pain (scale 7-10). amoxicillin 2020- No [id number] 500mg Take 1 [facility] 500 mg 1-16 04-28 capsule by ity of capsule 00:00: 00:00 mouth 3 [place] 00 :00 (three) Medical times Branch daily. acetaminoph 2020- No [id number] 1{tbl} Take 1 [facility] en-codeine 1-16 04-28 tablet by ity of (TYLENOL-CO 00:00: 00:[place] DEINE #3[place] 00 :00 every 4 Medical 300-30 mg (four) Branch tablet hours as needed for Pain (scale 7-10). amoxicillin 2018- 2021- No [id number] 500mg Take 1 [facility] 500 mg 10-17- capsule by ity of capsule 00:00: 00:00 [...] 1{tbl} Take 1 U nivers en-codeine 9-21 28 tablet by ity of (TYLENOL-CO 00:00: 00:00 [...] by ity of tablet 00:00: mouth at [place] 00 bedtime. Medical Branch SERTraline 2017-0 Yes [id number] 50mg Take 1 U nivers 50 mg 9-03 tablet by ity of tablet 00:00: mouth [place] 00 daily. Medical Branch atorvastati 2017-0 Yes 20mg Take 1 Univ ers n 20 mg 9-03 tablet by ity of tablet 00:00: mouth at [place] 00 bedtime. Medical Branch SERTraline 2017-0 Yes [id number] 50mg Take 1 U nivers 50 mg 9-03 tablet by ity of tablet 00:00: mouth [place] 00 daily. Medical Branch atorvastati 2017-0 Yes 20mg Take 1 Univ ers n 20 mg 9-03 tablet by ity of tablet 00:00: mouth at [place] 00 bedtime. Medical Branch SERTraline 2017-0 Yes [id number] 50mg Take 1 U nivers 50 mg 9-03 tablet by ity of tablet 00:00: mouth [place] 00 daily. Medical Branch atorvastati 2017-0 Yes 20mg Take 1 Univ ers n 20 mg 9-03 tablet by ity of tablet 00:00: mouth at [place] 00 bedtime. Medical Branch SERTraline 2017-0 Yes [id number] 50mg Take 1 U nivers 50 mg 9-03 tablet by ity of tablet 00:00: mouth [place] 00 daily. Medical Branch atorvastati 2017-0 Yes 20mg Take 1 Univ ers n 20 mg 9-03 tablet by ity of tablet 00:00: mouth at [place] 00 bedtime. Medical Branch SERTraline 2017-0 Yes [id number] 50mg Take 1 U nivers 50 mg 9-03 tablet by ity of tablet 00:00: mouth [place] 00 daily. Medical Branch atorvastati 2018-0 Yes 20mg Take 1 Univ ers n 20 mg 9-03 tablet by ity of tablet 00:00: mouth at [place] 00 bedtime. Medical Branch SERTraline 2018-0 Yes [id number] 50mg Take 1 U nivers 50 mg 9-03 tablet by ity of tablet 00:00: mouth [place] 00 daily. Medical Branch atorvastati 2017-0 Yes 20mg Take 1 Univ ers n 20 mg 9-03 tablet by ity of tablet 00:00: mouth at [place] 00 bedtime. Medical Branch SERTraline 2017-0 Yes [id number] 50mg Take 1 U nivers 50 mg 9-03 tablet by ity of tablet 00:00: mouth [place] 00 daily. Medical Branch atorvastati 2017-0 Yes 20mg Take 1 Univ ers n 20 mg 9-03 tablet by ity of tablet 00:00: mouth at [place] 00 bedtime. Medical Branch SERTraline 2017-0 Yes [id number] 50mg Take 1 U nivers 50 mg 9-03 tablet by ity of tablet 00:00: mouth [place] 00 daily. Medical Branch atorvastati 0 Yes 20mg Take 1 [facility] ers n 20 mg 9-03 tablet by ity of tablet 00:00: mouth at [place] bedtime. Medical Branch SERTraline 0 Yes [id number] 50mg Take 1 U nivers 50 mg 9-03 tablet by ity of tablet 00:00: mouth 00 daily. Medical Branch atorvastati 2017-0 Yes 20mg Take 1 Univ ers n 20 mg 9-03 tablet by ity of tablet 00:00: mouth at [place] bedtime. Medical Branch SERTraline 0 Yes [id number] 50mg Take 1 U nivers 50 mg 9-03 tablet by ity of tablet 00:00: mouth [place] 00 daily. Medical Branch atorvastati 0 Yes 20mg Take 1 Univ ers n 20 mg 9-03 tablet by ity of tablet 00:00: mouth at [place] bedtime. Medical Branch SERTraline 2017-0 Yes [id number] 50mg Take 1 U nivers 50 mg 9-03 tablet by ity of tablet 00:00: mouth [place] 00 daily. Medical Branch atorvastati 2017-0 Yes 20mg Take 1 Univ ers n 20 mg 9-03 tablet by ity of tablet 00:00: mouth at [place] bedtime. Medical Branch SERTraline 2017-0 Yes [id number] 50mg Take 1 U nivers 50 mg 9-03 tablet by ity of tablet 00:00: mouth [place] 00 daily. Medical Branch atorvastati 2017-0 Yes 20mg Take 1 Univ ers n 20 mg 9-03 tablet by ity of tablet 00:00: mouth at [place] 00 bedtime. Medical Branch SERTraline 2018-0 Yes [id number] 50mg Take 1 U nivers 50 mg 9-03 tablet by ity of tablet 00:00: mouth [place] 00 daily. Medical Branch atorvastati 2017-0 Yes 20mg Take 1 [facility] ers n 20 mg 9-03 tablet by ity of tablet 00:00: mouth at [place] 00 bedtime. Medical Branch SERTraline 2017-0 Yes [id number] 50mg Take 1 U nivers 50 mg 9-03 tablet by ity of tablet 00:00: mouth [place] 00 daily. Medical Branch atorvastati 2017-0 Yes 20mg Take 1 Univ ers n 20 mg 9-03 tablet by ity of tablet 00:00: mouth at [place] 00 bedtime. Medical Branch SERTraline 2017-0 Yes [id number] 50mg Take 1 U nivers 50 mg 9-03 tablet by ity of tablet 00:00: mouth [place] 00 daily. Medical Branch atorvastati 2017-0 Yes 20mg Take 1 Univ ers n 20 mg 9-03 tablet by ity of tablet 00:00: mouth at [place] 00 bedtime. Medical Branch SERTraline 2017-0 Yes [id number] 50mg Take 1 U nivers 50 mg 9-03 tablet by ity of tablet 00:00: mouth [place] 00 daily. Medical Branch atorvastati 0 Yes 20mg Take 1 Univ ers n 20 mg 9-03 tablet by ity of tablet 00:00: mouth at [place] 00 bedtime. Medical Branch SERTraline 2017-0 Yes [id number] 50mg Take 1 U nivers 50 mg 9-03 tablet by ity of tablet 00:00: mouth [place] 00 daily. Medical Branch atorvastati 2017-0 Yes 20mg Take 1 Univ ers n 20 mg 9-03 tablet by ity of tablet 00:00: mouth at [place] 00 bedtime. Medical Branch SERTraline 2017-0 Yes [id number] 50mg Take 1 U nivers 50 mg 9-03 tablet by ity of tablet 00:00: mouth [place] 00 daily. Medical Branch atorvastati 2017-0 Yes 20mg Take 1 Univ ers n 20 mg 9-03 tablet by ity of tablet 00:00: mouth at [place] 00 bedtime. Medical Branch SERTraline 2017-0 Yes [id number] 50mg Take 1 U nivers 50 mg 9-03 tablet by ity of tablet 00:00: mouth [place] 00 daily. Medical Branch atorvastati 2018-0 Yes 20mg Take 1 Univ ers n 20 mg 9-03 tablet by ity of tablet 00:00: mouth at [place] bedtime. Medical Branch SERTraline 2018-0 Yes [id number] 50mg Take 1 U nivers 50 mg 9-03 tablet by ity of tablet 00:00: mouth 00 daily. Medical Branch atorvastati 2017-0 Yes 20mg Take 1 Univ ers n 20 mg 9-03 tablet by ity of tablet 00:00: mouth at [place] bedtime. Medical Branch SERTraline 2017-0 Yes [id number] 50mg Take 1 U nivers 50 mg 9-03 tablet by ity of tablet 00:00: mouth 00 daily. Medical Branch atorvastati 2017-0 Yes 20mg Take 1 Univ ers n 20 mg 9-03 tablet by ity of tablet 00:00: mouth at [place] bedtime. Medical Branch SERTraline 2017-0 Yes [id number] 50mg Take 1 U nivers 50 mg 9-03 tablet by ity of tablet 00:00: mouth 00 daily. Medical Branch atorvastati 2017-0 Yes 20mg Take 1 Univ ers n 20 mg 9-03 tablet by ity of tablet 00:00: mouth at [place] bedtime. Medical Branch SERTraline 2017-0 Yes [id number] 50mg Take 1 U nivers 50 mg 9-03 tablet by ity of tablet 00:00: mouth 00 daily. Medical Branch atorvastati 2017-0 Yes 20mg Take 1 Univ ers n 20 mg 9-03 tablet by ity of tablet 00:00: mouth at [place] bedtime. Medical Branch SERTraline 2018-0 Yes [id number] 50mg Take 1 U nivers 50 mg 9-03 tablet by ity of tablet 00:00: mouth 00 daily. Medical Branch atorvastati 2017-0 Yes 20mg Take 1 Univ ers n 20 mg 9-03 tablet by ity of tablet 00:00: mouth at [place] bedtime. Medical Branch SERTraline 2018-0 Yes [id number] 50mg Take 1 U nivers 50 mg 9-03 tablet by ity of tablet 00:00: mouth 00 daily. Medical Branch atorvastati 2017-0 Yes 20mg Take 1 Univ ers n 20 mg 9-03 tablet by ity of tablet 00:00: mouth at [place] 00 bedtime. Medical Branch SERTraline 2018-0 Yes [id number] 50mg Take 1 U nivers 50 mg 9-03 tablet by ity of tablet 00:00: mouth [place] 00 daily. Medical Branch atorvastati 2018-0 Yes 20mg Take 1 Univ ers n 20 mg 9-03 tablet by ity of tablet 00:00: mouth at [place] 00 bedtime. Medical Branch SERTraline 2018-0 Yes [id number] 50mg Take 1 U nivers 50 mg 9-03 tablet by ity of tablet 00:00: mouth [place] 00 daily. Medical Branch atorvastati 2017-0 Yes 20mg Take 1 Univ ers n 20 mg 9-03 tablet by ity of tablet 00:00: mouth at [place] bedtime. Medical Branch SERTraline 2017-0 Yes [id number] 50mg Take 1 U nivers 50 mg 9-03 tablet by ity of tablet 00:00: mouth [place] 00 daily. Medical Branch atorvastati 2017-0 Yes 20mg Take 1 Univ ers n 20 mg 9-03 tablet by ity of tablet 00:00: mouth at [place] bedtime. Medical Branch SERTraline 2017-0 Yes [id number] 50mg Take 1 U nivers 50 mg 9-03 tablet by ity of tablet 00:00: mouth [place] 00 daily. Medical Branch atorvastati 2017-0 Yes 20mg Take 1 Univ ers n 20 mg 9-03 tablet by ity of tablet 00:00: mouth at [place] bedtime. Medical Branch SERTraline 2017-0 Yes [id number] 50mg Take 1 U nivers 50 mg 9-03 tablet by ity of tablet 00:00: mouth [place] 00 daily. Medical Branch atorvastati 2018-0 Yes 20mg Take 1 Univ ers n 20 mg 9-03 tablet by ity of tablet 00:00: mouth at [place] bedtime. Medical Branch SERTraline 2018-0 Yes [id number] 50mg Take 1 U nivers 50 mg 9-03 tablet by ity of tablet 00:00: mouth [place] 00 daily. Medical Branch atorvastati 2017-0 Yes 20mg Take 1 Univ ers n 20 mg 9-03 tablet by ity of tablet 00:00: mouth at [place] 00 bedtime. Medical Branch SERTraline 2017-0 Yes [id number] 50mg Take 1 U nivers 50 mg 9-03 tablet by ity of tablet 00:00: mouth [place] 00 daily. Medical Branch atorvastati 2018-0 Yes 20mg Take 1 Univ ers n 20 mg 9-03 tablet by ity of tablet 00:00: mouth at [place] 00 bedtime. Medical Branch SERTraline 2018-0 Yes [id number] 50mg Take 1 U nivers 50 mg 9-03 tablet by ity of tablet 00:00: mouth [place] 00 daily. Medical Branch atorvastati 2017-0 Yes 20mg Take 1 Univ ers n 20 mg 9-03 tablet by ity of tablet 00:00: mouth at [place] 00 bedtime. Medical Branch SERTraline 2017-0 Yes [id number] 50mg Take 1 U nivers 50 mg 9-03 tablet by ity of tablet 00:00: mouth [place] 00 daily. Medical Branch atorvastati 2017-0 Yes 20mg Take 1 Univ ers n 20 mg 9-03 tablet by ity of tablet 00:00: mouth at [place] 00 bedtime. Medical Branch SERTraline 2017-0 Yes [id number] 50mg Take 1 U nivers 50 mg 9-03 tablet by ity of tablet 00:00: mouth [place] 00 daily. Medical Branch atorvastati 0 Yes 20mg Take 1 Univ ers n 20 mg 9-03 tablet by ity of tablet 00:00: mouth at [place] 00 bedtime. Medical Branch SERTraline 2017-0 Yes [id number] 50mg Take 1 U nivers 50 mg 9-03 tablet by ity of tablet 00:00: mouth [place] 00 daily. Medical Branch atorvastati 2017-0 Yes 20mg Take 1 Univ ers n 20 mg 9-03 tablet by ity of tablet 00:00: mouth at [place] 00 bedtime. Medical Branch SERTraline 2017-0 Yes [id number] 50mg Take 1 U nivers 50 mg 9-03 tablet by ity of tablet 00:00: mouth [place] 00 daily. Medical Branch atorvastati 2018-0 Yes 20mg Take 1 Univ ers n 20 mg 9-03 tablet by ity of tablet 00:00: mouth at [place] 00 bedtime. Medical Branch SERTraline 2018-0 Yes [id number] 50mg Take 1 U nivers 50 mg 9-03 tablet by ity of tablet 00:00: mouth [place] 00 daily. Medical Branch atorvastati 2017-0 Yes 20mg Take 1 Univ ers n 20 mg 9-03 tablet by ity of tablet 00:00: mouth at [place] 00 bedtime. Medical Branch SERTraline 2017- Yes [id number] 50mg Take 1 U nivers 50 mg 9-03 tablet by ity of tablet 00:00: mouth [place] 00 daily. Medical Branch acetaminoph Yes 1{tbl} Take 1 Un dani [...] No Take one Univ ers CALCIUM 240 6-01 03-28 capsule by i ty of MG ORAL CAP 00:00: 00:[place] 00 :00 daily as Medical needed for Branch constipati on FERROUS 2020- No Take one Unive rs SULFATE 325 6-01 03-28 tablet by it y of MG (65 MG 00:00: 00:00 mouth [place] IRON) ORAL 00 :00 twice Medical TAB daily Branch DOCUSATE 2020- No Take one Univ ers CALCIUM 240 6-01 03-28 capsule by i ty of MG ORAL CAP 00:00: 00:00 [place] 00 :00 daily as Medical needed for Branch constipati on FERROUS 2020- No Take one Unive rs SULFATE 325 6-28 tablet by it y of MG (65 MG 00:00: 00:00 mouth [place] IRON) ORAL 00 :00 twice Medical TAB daily Branch Immunizations Ordered Filled Immunization Date Status Comments [facility] e Immunization Name Name SARS-COV-2 COVID-19 2021-04-19 Completed Unive rsity of MODERNA VACCINE 00:00:00 [facility] SARS-COV-2 COVID-19 2021-04-19 Completed Unive rsity of MODERNA VACCINE 00:00:00 [facility] SARS-COV-2 COVID-19 2021-04-19 Completed Unive rsity of MODERNA VACCINE 00:00:00 [facility] Branch SARS-COV-2 COVID-19 2021-04-19 Completed Unive rsity of MODERNA VACCINE 00:00:00 [facility] Branch SARS-COV-2 COVID-19 2021-04-19 Completed Unive rsity of MODERNA VACCINE 00:00:00 [facility] Branch SARS-COV-2 COVID-19 2021-04-19 Completed Unive rsity of MODERNA VACCINE 00:00:00 [facility] Branch SARS-COV-2 COVID-19 2021-03-20 Completed Unive rsity of MODERNA VACCINE 00:00:00 [facility] Branch SARS-COV-2 COVID-19 2021-03-20 Completed Unive rsity of MODERNA VACCINE 00:00:00 [facility] Branch SARS-COV-2 COVID-19 2021-03-20 Completed Unive rsity of MODERNA VACCINE 00:00:00 [facility] Branch SARS-COV-2 COVID-19 2021-03-20 Completed Unive rsity of MODERNA VACCINE 00:00:00 [facility] Branch SARS-COV-2 COVID-19 2021-03-20 Completed Unive rsity of MODERNA VACCINE 00:00:00 [facility] Branch SARS-COV-2 COVID-19 2021-03-20 Completed Unive rsity of MODERNA VACCINE 00:00:00 [facility] [place] [facility] H1n1 Vaccine 2009-07-16 Completed University o f 00:00:00 [facility] H1n1 Vaccine 2009-07-16 Completed University o f 00:00:00 [facility] H1n1 Vaccine 2009-07-16 Completed University o f 00:00:00 [facility] H1n1 Vaccine 2009-07-16 Completed University o f 00:00:00 [place] [facility] H1n1 Vaccine 2009-07-16 Completed University o f 00:00:00 [place] [facility] H1n1 Vaccine 2009-07-16 Completed University o f 00:00:00 [facility] Vital Signs Vital Name Observation Time Observation Value Comments Source Systolic blood 2021-10-31 18:32:00 151 mm[Hg] Univer sity of pressure [place] [facility] Diastolic blood 2021-10-31 18:32:00 109 mm[Hg] Unive rsity of pressure [place] [facility] Heart rate 2021-10-31 18:32:00 92 /min [facility] [place] [facility] Body temperature 2021-10-31 18:32:00 36.89 Cnidi Univ ersity of [place] [facility] Respiratory rate 2021-10-31 18:32:00 16 /min Univ ersity of [place] [facility] Body height 2021-10-31 18:32:00 162.6 cm [facility] [place] [facility] Body weight 2021-10-31 18:32:00 99.791 kg [facility] [place] [facility] BMI 2021-10-31 18:32:00 37.76 kg/m2 [facility] [place] [facility] Oxygen saturation in 2021-10-31 18:32:00 100 /min University of Arterial blood by [facility] Pulse oximetry Branch Systolic blood 2021-06-19 00:30:00 135 mm[Hg] Univer sity of pressure [place] [facility] Diastolic blood 2021-06-19 00:30:00 95 mm[Hg] Unive rsity of pressure [place] [facility] Heart rate 2021-06-19 00:30:00 73 /min [facility] [place] [facility] Respiratory rate 2021-06-19 00:30:00 16 /min Univ ersity of [place] [facility] Oxygen saturation in 2021-06-19 00:30:00 100 /min University of Arterial blood by [facility] Pulse oximetry Branch Body temperature 2021-06-19 00:00:00 37.17 Cindi [facility] ers[facility] of [place] [facility] Body height 2021-06-18 19:35:00 162.6 cm [facility] [place] [facility] Body weight 2021-06-18 19:35:00 106.142 kg [facility] of [place] [facility] BMI 2021-06-18 19:35:00 40.17 kg/m2 [facility] [place] [facility] Systolic blood 2021-04-05 13:45:00 123 mm[Hg] Univer sity of pressure [place] [facility] Diastolic blood 2021-04-05 13:45:00 86 mm[Hg] Unive rsity of pressure [place] [facility] Heart rate 2021-04-05 13:45:00 78 /min [facility]i [facility] of [place] [facility] Body temperature 2021-04-05 13:45:00 36.72 Cindi [facility] ers[facility] of [place] [facility] Respiratory rate 2021-04-05 13:45:00 18 /min Univ ersity of [place] [facility] Body height 2021-04-05 13:45:00 162.6 cm [facility]i [facility] of [place] [facility] Body weight 2021-04-05 13:45:00 106.142 kg [facility] [place] [facility] BMI 2021-04-05 13:45:00 40.17 kg/m2 [facility] [place] [facility] Systolic blood 2021-03-29 14:19:00 134 mm[Hg] Univer sity of pressure [place] [facility] Diastolic blood 2021-03-29 14:19:00 89 mm[Hg] Unive rsity of pressure [place] [facility] Heart rate 2021-03-29 14:19:00 88 /min [facility]i [facility] [place] [facility] Body temperature 2021-03-29 14:19:00 36.89 Cindi [facility] of [place] [facility] Respiratory rate 2021-03-29 14:19:00 18 /min Univ ersity of [place] [facility] Body height 2021-03-29 14:19:00 162.6 cm [facility] of [place] [facility] Body weight 2021-03-29 14:19:00 108.047 kg [facility] [place] [facility] BMI 2021-03-29 14:19:00 40.89 kg/m2 [facility] [place] [facility] Systolic blood 2021-03-10 19:16:00 134 mm[Hg] Univer sity of pressure [place] [facility] Diastolic blood 2021-03-10 19:16:00 85 mm[Hg] Unive rsity of pressure [place] [facility] Heart rate 2021-03-10 19:16:00 83 /min [facility] [place] [facility] Body temperature 2021-03-10 19:16:00 36.94 Cindi [facility] of [place] [facility] Respiratory rate 2021-03-10 19:16:00 18 /min [facility] ers[facility] of [place] [facility] Body height 2021-03-10 19:16:00 162.6 cm [facility] [place] [facility] Body weight 2021-03-10 19:16:00 107.14 kg [facility] [place] [facility] BMI 2021-03-10 19:16:00 40.54 kg/m2 [facility] [place] [facility] Systolic blood 2021-02-24 19:05:00 139 mm[Hg] Univer sity of pressure [place] [facility] Diastolic blood 2021-02-24 19:05:00 94 mm[Hg] Unive rsity of pressure [place] [facility] Heart rate 2021-02-24 19:05:00 81 /min Universi ty of [facility] Body temperature 2021-02-24 19:04:00 36.78 Cindi Univ ersity of [facility] Respiratory rate 2021-02-24 19:04:00 18 /min Univ ersity of [place] [facility] Body height 2021-02-24 19:04:00 162.6 cm [facility]i [facility] [place] [facility] Body weight 2021-02-24 19:04:00 107.049 kg [facility] [place] [facility] BMI 2021-02-24 19:04:00 40.51 kg/m2 [facility] [place] [facility] Systolic blood 2021-02-22 10:00:00 138 mm[Hg] Univer sity of pressure [place] [facility] Diastolic blood 2021-02-22 10:00:00 100 mm[Hg] Unive rsity of pressure [place] [facility] Heart rate 2021-02-22 10:00:00 71 /min [facility] [place] [facility] Respiratory rate 2021-02-22 10:00:00 13 /min Univ ersity of [facility] Oxygen saturation in 2021-02-22 10:00:00 98 /min [facility] Arterial blood by [facility] Pulse oximetry Branch Body temperature 2021-02-22 04:21:04 37.28 Cindi Univ ersity of [facility] Body height 2021-02-22 02:24:00 162.6 cm [facility] [place] [facility] Body weight 2021-02-22 02:24:00 104.327 kg [facility] [place] [facility] BMI 2021-02-22 02:24:00 39.48 kg/m2 Universi ty of [facility] Systolic blood 2021-01-27 20:31:00 145 mm[Hg] Univer sity of pressure [place] [facility] Diastolic blood 2021-01-27 20:31:00 91 mm[Hg] Unive rsity of pressure [facility] Heart rate 2021-01-27 20:31:00 84 /min Universi ty of [facility] Body temperature 2021-01-27 20:25:00 36.83 Cindi Univ ersity of [facility] Branch Respiratory rate 2021-01-27 20:25:00 18 /min Univ ersity of [facility] Body height 2021-01-27 20:25:00 162.6 cm Universi ty of [facility] Body weight 2021-01-27 20:25:00 108.41 kg Universi ty of [facility] BMI 2021-01-27 20:25:00 41.02 kg/m2 Universi ty of [facility] Systolic blood 2021-01-19 22:16:47 128 mm[Hg] Univer sity of [facility] Diastolic blood 2021-01-19 22:16:47 89 mm[Hg] Unive rsity of pressure [facility] Heart rate 2021-01-19 22:16:47 71 /min [facility] [place] [facility] Body temperature 2021-01-19 22:16:47 37.72 Cindi Univ ersity of [facility] Respiratory rate 2021-01-19 22:16:47 18 /min [facility] Oxygen saturation in 2021-01-19 22:16:47 100 /min [place] of Arterial blood by [facility] Pulse oximetry Branch Body weight 2021-01-19 18:09:00 106.142 kg Universi ty of [facility] BMI 2021-01-19 18:09:00 40.17 kg/m2 Universi ty of [facility] Systolic blood 2020-11-11 01:09:43 147 mm[Hg] Univer sity of pressure [facility] Diastolic blood 2020-11-11 01:09:43 96 mm[Hg] Unive rsity of pressure [facility] Heart rate 2020-11-11 01:09:43 86 /min [facility] [place] [facility] Body temperature 2020-11-11 01:09:43 37.28 Cindi [facility] [place] [facility] Respiratory rate 2020-11-11 01:09:43 18 /min [facility] [place] [facility] Oxygen saturation in 2020-11-11 01:09:43 100 /min University of Arterial blood by [facility] Pulse oximetry Branch Body weight 2020-11-11 00:06:00 106.142 kg [facility] [place] [facility] BMI 2020-11-11 00:06:00 40.17 kg/m2 [facility] [place] [facility] Systolic blood 2020-11-11 01:09:43 147 mm[Hg] Univer sity of pressure [place] [facility] Diastolic blood 2020-11-11 01:09:43 96 mm[Hg] Unive rsity of pressure [place] [facility] Heart rate 2020-11-11 01:09:43 86 /min [facility] [place] [facility] Body temperature 2020-11-11 01:09:43 37.28 Cindi [facility] [place] [facility] Respiratory rate 2020-11-11 01:09:43 18 /min [facility] Oxygen saturation in 2020-11-11 01:09:43 100 /min [facility] of Arterial blood by [facility] dejah Pulse oximetry Branch Body weight 2020-11-11 00:06:00 106.142 kg [facility] BMI 2020-11-11 00:06:00 40.17 kg/m2 [facility] BMI 2019-12-16 21:22:00 40.17 kg/m2 [facility] Systolic blood 2019-12-16 21:22:00 132 mm[Hg] [facility] Diastolic blood 2019-12-16 21:22:00 87 mm[Hg] [facility] Heart rate 2019-12-16 21:22:00 83 /min [facility] Body height 2019-12-16 21:22:00 162.6 cm [facility] Body weight 2019-12-16 21:22:00 106.142 kg [facility] BMI 2019-12-16 21:22:00 40.17 kg/m2 [facility] Systolic blood 2019-12-16 21:22:00 132 mm[Hg] Univer [facility]ity [facility] pressure [facility] Diastolic blood 2019-12-16 21:22:00 87 mm[Hg] [facility] Heart rate 2019-12-16 21:22:00 83 /min [facility] Body height 2019-12-16 21:22:00 162.6 cm [facility] Body weight 2019-12-16 21:22:00 106.142 kg [facility] Procedures Procedure Date / Time Performing Clinician Source Performed NOTICE OF PRIVACY 2021-10-31 18:23:05 Doctor Unassigned, [facility] PRACTICES [facility] CONSENT/REFUSAL FOR 2021-10-31 18:20:02 Doctor Unassigned, [facility] DIAGNOSIS AND TREATMENT [facility] CT ABDOMEN PELVIS W 2021-06-18 22:53:18 Nohemi Dinh [facility] CONTRAST [facility] Branch ASSIGNMENT OF BENEFITS 2021-06-18 20:28:15 Doctor Jussigned, [facility] [place] XR ABDOMEN 1 VW 2021-06-18 20:23:37 Karlee Gomez [facility] POCT TEST 2021-06-18 20:10:00 Karlee Gomez [facility] URINALYSIS 2021-06-18 20:09:00 Karlee Gomez [facility] LIPASE 2021-06-18 20:08:00 Karlee Gomez [facility] HEPATIC FUNCTION PANEL 2021-06-18 20:08:00 Karlee Gomez [facility] ([id number]) (ALB,T.PRO,BILI Medical Branch T,BU/BC,ALT,AST,ALK PHOS) BASIC METABOLIC PANEL 2021-06-18 20:08:00 Karlee Gomez [facility] (NA, K, CL, CO2, GLUCOSE, Medica l Branch BUN, CREATININE, CA) CBC WITH DIFF 2021-06-18 20:08:00 Karlee Gomez [facility] CONSENT/REFUSAL FOR 2021-06-18 19:15:28 Doctor Yomaira, [facility] DIAGNOSIS AND TREATMENT [facility] POCT TEST 2021-03-29 14:12:00 Tasha De Oliveira [facility]BOARD [facility]IC ULTRASOUND 2021-03-29 05:01:00 Doctor Yomaira, [facility] POCT TEST 2021-02-24 00:00:00 Tasha De Oliveira [facility] COMP. METABOLIC PANEL 2021-02-22 04:38:00 Fredo Hogue [facility] ([id number]) [facility] [place] CT ABDOMEN PELVIS W 2021-02-22 04:14:23 Riri Joiner [facility] CONTRAST Medical Branch LIPASE 2021-02-22 03:30:00 Fredo Hogue [facility] CBC WITH DIFF 2021-02-22 03:30:00 Fredo Hogue [facility] URINALYSIS 2021-02-22 03:30:00 Fredo Hogue [facility] POCT TEST 2021-02-22 03:30:00 Fredo Hogue [facility] CONSENT/REFUSAL FOR 2021-02-22 02:09:58 Doctor Yomaira, [facility] DIAGNOSIS AND TREATMENT [facility] ASSIGNMENT OF BENEFITS 2021-01-27 20:14:09 Doctor Yomaira, [facility] Medical Branch REFERRAL- 2021-01-22 05:01:00 Doctor Yomaira, [facility] REQUEST/RESPONSE [facility] ABDOMEN PELVIS W 2021-01-19 21:04:54 Sam Evans [facility] CONTRAST Medical Branch POCT TEST 2021-01-19 20:54:00 Sam Evans [facility] URINALYSIS 2021-01-19 20:38:00 Sam Evans [facility] COMP. METABOLIC PANEL 2021-01-19 20:36:00 Sam Evans [facility] ([id number]) Medical Branch CBC WITH DIFF 2021-01-19 20:36:00 Sam Evans [facility] NOTICE OF PRIVACY 2021-01-19 18:00:58 Doctor Yomaira [facility] CONSENT/REFUSAL FOR 2021-01-19 17:56:54 Doctor [facility]aira [facility] DIAGNOSIS AND TREATMENT [facility] URINALYSIS 2020-11-11 00:46:00 Nohemi Dinh [facility] NOTICE OF PRIVACY 2020-11-11 00:01:32 Doctor Yomaira [facility] CONSENT/REFUSAL FOR 2020-11-10 23:59:08 Doctor Yomaira [facility] DIAGNOSIS AND TREATMENT [facility] INSURANCE 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 2020-02-20 05:01:00 Doctor Burnette [facility] AUTHORIZATION FOR RELEASE 2020-02-10 05:01:00 Doctor Yomaira [facility] INSURANCE 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 2020-01-31 05:01:00 Doctor Yomaira [facility] XR KNEE <3 VW RIGHT 2019-12-16 21:34:01 Maia Shrestha [facility] [place] ASSIGNMENT OF BENEFITS 2019-12-16 21:15:03 Doctor Yomaira, [facility] Encounters Start End Encounter Admission Attending Care Care Encounter Source Date/Time Date/Time Type Type Clinicians Facility Department ID 2021-08-02 Emergency [facility] [id number] Univers 23:28:18 ity of [facility] 2021-08-01 Emergency [facility] [id number] Univers 20:45:33 it[facility] of [facility] 2021-08-01 Emergency [facility] [id number] Univers 14:07:05 [facility] of [facility] 2021-07-31 Emergency [facility] [id number] Univers 22:40:16 it of [facility] Branch 2021-11-02 2021-11-02 Emergency EM Harris, HCAPM SKYLA [id number] [facility] 14:32:00 14:48:00 Jose [id number] [facility] 2021-11-02 2021-11-02 Emergency EM Harris, HCAPM HCAPM [id number] [facility] 14:32:00 14:48:00 Jose 20 [facility] sonal [facility] 2021-10-31 2021-10-31 Emergency X PATRICIA, [facility] ERT [id number] Univers 12:33:00 13:01:00 [facility] 2021-10-31 2021-10-31 [facility] 1.2.840.114 [id number] Univers 12:33:00 13:01:00 Karlee SMITH [id number] ity of [place] 4.2.7.2.686 [phone] [address] 2021-10-31 2021-10-31 Orders Doctor BREANNA 1.2.840.114 [id number] Univers 00:00:00 00:00:00 Only Unassigned, JUANY 350.1.13.10 [place] [facility] 4.2.7.2.686 Matt [phone] [place] [address] Branch 2021-06-18 2021-06-18 Emergency [facility] [id number] Univers 14:44:00 19:42:00 Nohemi Smith 350.1.13.10 i ty of [place] 4.2.7.2.686 [facility] [phone] [address] 2021-06-14 2021-06-14 Telephone Jordan Correa 1.2.840.114 [id number] Univers 00:00:00 00:00:00 , Mony Leiva 350.1.13.10 ity of [place] 4.2.7.2.686 [facility] [phone] [address] 2021-04-28 2021-04-28 Outpatient R TASHA DE OLIVEIRA [facility] [id number] Univers 13:30:00 13:30:00 ity of [facility] 2021-04-15 2021-04-15 Outpatient R MAXIMUS [facility] [id number] Univers 14:00:00 14:00:00 KILEY ity [facility] 2021-04-12 2021-04-12 Outpatient R JACKELINE [facility] [id number] Univers 08:00:00 08:00:00 KEYSHA ity of [facility] 2021-04-05 2021-04-05 Office Tasha De Oliveira [facility] [id number] Univers 08:36:11 09:07:09 Visit [place] 350.1.13.10 i [place] [phone] [address] 2021-04-05 2021-04-05 Outpatient R TASHA DE OLIVEIRA [facility] [id number] Univers 08:45:00 08:45:00 ity of [facility] 2021-04-02 2021-04-02 Telephone Tasha De Oliveira [facility] 1.2.840.114 [id number] Univers 00:00:00 00:00:00 Cam [place] 350.1.13.10 i ty [place].2.[place] [id number] [address] 2021-03-29 2021-03-29 Office Tasha De Oliveira [facility] 1.2.782.915 [id number] Univers 08:54:36 09:35:27 Visit Cam [place] 350.1.13.10 i ty [place] 4[place].7.2.[place] [phone] [address] 2021-03-29 2021-03-29 Outpatient R TASHA DE OLIVEIRA [facility] [id number] Univers 09:00:00 09:00:00 ity [facility] 2021-03-29 2021-03-29 Orders Doctor CARLOS 1.2.840.114 [id number] Univers 00:00:00 00:00:00 Only Unassigned, JUANY 350.1.13.10 [place] [facility] 4.2.7.2.686 Matt as [phone] [address] 2021-03-19 2021-03-19 Outpatient R TASHA DE OLIVEIRA [facility] [id number] Univers 11:00:00 11:00:00 ity [facility] 2021-03-18 2021-03-18 Telephone Tasha De Oliveira [facility] 1.2.840.114 [id number] Univers 00:00:00 00:00:00 Cam [place] 350.1.13.10 i ty [place] [phone] [place] dic[address] 2021-03-10 2021-03-10 Office Tasha De Oliveira [facility] 1.2.214.749 [id number] Univers 13:52:09 14:30:52 Visit Cam [place] 350.1.13.10 i ty [place] 4[place].2.[place] [phone] [address] 2021-03-10 2021-03-10 Outpatient R ALVINO TASHA [facility] [id number] Univers 14:15:00 14:15:00 ity [facility] 2021-03-02 2021-03-02 Telephone Alvino [facility] 1.2.840.114 [id number] Univers 00:00:00 00:00:00 Cam [place] 350.1.13.10 i [place].2.[place] [id number] [address] 2021-02-24 2021-02-24 Office Alvino Tasha [facility] 1.2.053.414 [id number] Univers 13:22:56 14:21:21 Visit Cam [place] 350.1.13.10 i ty [place] 4[place]2.7.2.[place] [phone] Il dichi nal [address] [place] [address] 2021-02-24 2021-02-24 Outpatient R TASHA DE OLIVEIRA [facility] [id number] Univers 13:30:00 13:30:00 ity [facility] 2021-02-21 2021-02-22 Emergency Riri Joiner [facility] 1.2.840.114 [id number] Univers 22:04:00 05:32:00 Roni Juneton 350.1.13.10 i [place].2.686 [place] [phone] [address] 2021-01-27 2021-01-27 Office Tasha De Oliveira [facility] 1.2.387.326 [id number] Univers 15:15:37 16:25:23 Visit Inder Smith 350.1.13.10 i ty [place] 4.2.7.2.[place] [phone] Il dical nal [address] [facility] 2021-01-27 2021-01-27 Outpatient R TASHA DE OLIVEIRA [facility] [id number] Univers 15:00:00 15:00:00 ity of [facility] 2021-01-27 2021-01-27 Orders Doctor BREANNA 1.2.840.114 [id number] Univers 00:00:00 00:00:00 Only UnassignedJUANY 350.1.13.10 [place] [facility] 4.2.7.2.[phone] [facility] 009 Branch 2021-01-22 2021-01-22 Orders Doctor CARLOS 1.2.840.114 [id number] Univers 00:00:00 00:00:00 Only UnassignedJUNAY 350.1.13.10 [place] [facility] 4.2.7.2.[phone] [facility] 009 Branch 2021-01-19 2021-01-19 Emergency [facility] 1.2.193.375 [id number] Univers 13:10:00 17:27:00 Sam Smith 350.1.13.10 i [place].2.[place] [phone] [facility] 084 Branch 2020-12-21 2020-12-21 Patient [facility] 1.2.840.114 [id number] Univers 00:00:00 00:00:00 Outreach Fredrick PRIMARY 350.1.13.10 i ty of [facility] 4.2.7.2.686 [place] [phone] Il dical 388 Branch 2020-11-10 2020-11-10 Emergency [facility] 1.2.732.755 [id number] Univers 18:08:00 20:09:00 Nohemi Smith 350.1.13.10 i ty of [place] 4.2.7.2.686 [place] [phone] [place] [address] [place] 2020-11-10 2020-11-10 Emergency [facility] 1.2.338.228 [id number] 18:08:00 20:09:00 Nohemi Smith 350.1.13.10 [place] 4.2.7.2.686 [place] [phone] [facility] 2020-02-20 2020-02-20 Orders Doctor BREANNA 1.2.840.114 [id number] Univers 00:00:00 00:00:00 Only Unassigned, JUANY 350.1.13.10 [place] [facility] 4.2.7.2.686 Matt as [phone] [address] 2020-02-20 2020-02-20 Orders Doctor CARLOS 1.2.840.114 [id number] 00:00:00 00:00:00 Only Unassigned, JUANY 350.1.13.10 [facility] 4.2.7.2.686 [id number] 009 2020-02-10 2020-02-10 Orders Doctor BREANNA 1.2.840.114 [id number] Univers 00:00:00 00:00:00 Only Unassigned, JUANY 350.1.13.10 [facility] [place] [facility] 4.2.7.2.686 Matt as [phone] [address] 2020-02-10 2020-02-10 Orders Doctor CARLOS 1.2.840.114 [id number] 00:00:00 00:00:00 Only Unassigned, JUANY 350.1.13.10 [facility] 4.2.7.2.686 [id number] 009 2020-01-31 2020-01-31 Orders Doctor CARLOS 1.2.840.114 [id number] Univers 00:00:00 00:00:00 Only Unassigned, JUANY 350.1.13.10 [facility] [place] [facility] 4.2.7.2.686 Matt as [phone] [address] 2020-01-31 2020-01-31 Orders Doctor CARLOS 1.2.840.114 [id number] 00:00:00 00:00:00 Only Unassigned, JUANY 350.1.13.10 [facility] 4.2.7.2.686 [id number] 009 2020-01-29 2020-01-29 [facility] 1.2.840.114 [id number] Univers 00:00:00 00:00:00 [facility] 350.1.13.10 it y of Surgical 4.2.7.2.686 Matt as Specialti [phone] Me dical es [address] [facility] 2020-01-29 2020-01-29 [facility] 1.2.840.114 [id number] 00:00:00 00:00:00 [facility] 350.1.13.10 Surgical 4.2.7.2.686 Specialti [id number] es [address] [place] 2020-01-28 2020-01-28 [facility] 1.2.840.114 [id number] Univers 00:00:00 00:00:00 [facility] 350.1.13.10 it y of Surgical 4.2.7.2.686 Matt as Specialti [phone] Il dical es [address] [facility] 2020-01-28 2020-01-28 [place] [facility] 1.2.840.114 [id number] 00:00:00 00:00:00 [facility] 350.1.13.10 Surgical 4.2.7.2.686 Specialti [phone] es [address] [place] 2019-12-26 2019-12-26 [place] [facility] 1.2.840.114 [id number] Univers 00:00:00 00:00:00 [facility] 350.1.13.10 it y of Surgical 4.2.7.2.686 Matt as Specialti [phone] Me dical es [address] [facility] 2019-12-26 2019-12-26 [place] [facility] 1.2.840.114 [id number] Univers 00:00:00 00:00:00 [facility] 350.1.13.10 it y of Surgical 4.2.7.2.686 Matt as Specialti [phone] Me dical es [address] [facility] 2019-12-26 2019-12-26 Telephone [facility] 1.2.840.114 [id number] 00:00:00 00:00:00 [facility] 350.1.13.10 Surgical 4.2.7.2.686 Specialti [phone] es [address] [place] 2019-12-26 2019-12-26 [facility] 1.2.840.114 [id number] 00:00:00 00:00:00 [facility] 350.1.13.10 Surgical 4.2.7.2.686 Specialti [phone] es [address] [place] 2019-12-16 2019-12-17 Office [facility] [id number] [facility] 16:15:48 10:13:00 Visit Anton Bedolla 350.1.13.10 it y of Surgical 4.2.7.2.686 Matt as Specialti [phone] Me dical es [address] [facility] 2019-12-16 2019-12-17 Office [facility] 1.2.336.166 [id number] 16:15:48 10:13:00 Visit [facility] 350.1.13.10 Surgical 4.2.7.2.686 Specialti [phone] es [address] [place] 2019-12-16 2019-12-16 [facility] [id number] Univers 16:34:01 23:59:00 MAIA ity of [facility] 2019-12-16 2019-12-16 [facility] 1.2.840.114 [id number] Univers 16:34:00 23:59:00 Encounter [facility] 350.1.13.10 ity of Surgical 4.2.7.2.686 [place] as Specialti [phone] Me dical es [address] [facility] 2019-12-16 2019-12-16 Orders Doctor BREANNA 1.2.840.114 [id number] Univers 00:00:00 00:00:00 Only Unassigned, JUANY 350.1.13.10 [facility] [facility] [place] [facility] 4.2.7.2.686 Matt as [phone] [address] Results Test Description Test Time Test Comments Results Result Comments Source HEPATIC FUNCTION PANEL (88931) (ALB,T.PRO,BILI 2021-06-18 20 :35:07 T,BU/BC,ALT,AST,ALK PHOS) Test Item Value Reference Range Interpretation Comme nts TOTAL BILI (test code = 0274055259) 0.3 mg/dL 0.1-1.1 BILI UNCON (test code = 9857239497) 0.3 mg/dL 0.1-1.1 BILI CONJ (test code = 3479755412) 0.0 mg/dL 0.0-0.3 T PROTEIN (test code = 8599463101) 7.6 g/dL 6.3-8.2 ALBUMIN (test code = 7267203453) 4.3 g/dL 3.5-5.0 ALK PHOS (test code = 4229088562) 77 U/L 34-122 ALTv (test code = 1742-6) 42 U/L 5-35 H AST(SGOT) (test code = 7353430398) 33 U/L 13-40 Lab Interpretation (test code = 92090-9) [facility]normal [facility] (ALB,T.PRO,BILI T,BU/BC,ALT,AST,ALK PHOS)2021-06-18 20:35:07 Test Item Value Reference Range Interpretation Comments TOTAL BILI (test code = 6320609285) 0.3 mg/dL 0.1-1.1 BILI UNCON (test code = 6061845680) 0.3 mg/dL 0.1-1.1 BILI CONJ (test code = 4303473749) 0.0 mg/dL 0.0-0.3 T PROTEIN (test code = 4621131214) 7.6 g/dL 6.3-8.2 ALBUMIN (test code = 7640254747) 4.3 g/dL 3.5-5.0 ALK PHOS (test code = 2581786819) 77 U/L 34-122 ALTv (test code = 1742-6) 42 U/L 5-35 H AST(SGOT) (test code = 1469874246) 33 U/L 13-40 Lab Interpretation (test code = Abnormal 90549-1) [facility] (NA, K, CL, CO2, GLUCOSE, BUN, CREATININE, CA)2021-06-18 20:34:47 Test Item Value Reference Range Interpretation Comments NA (test code = 136 mmol/L 135-145 1464438779) K (test code = 4.3 mmol/L 3.5-5.0 6143498813) CL (test code = 105 mmol/L 98-108 7579805234) CO2 TOTAL (test code = 24 mmol/L 23-31 9163597734) AGAP (test code = 2-16 6120342943) BUN (test code = 9 mg/dL 7-23 8528102421) GLUCOSE (test code = 112 mg/dL 70-110 H 3291456666) CREATININE (test code = 0.80 mg/dL 0.50-1.04 7347200102) CALCIUM (test code = 8.8 mg/dL 8.6-10.6 5667096377) eGFR (test code = mL/min/1.73m2 5306968754) ISAMAR (test code = ISAMAR) Association of [...] tests). Lab Interpretation Abnormal (test code = 38922-9) [facility] 20:34:47 Test Item Value Reference Range Interpretation Comments LIPASE (test code = 2404006256) 74 U/L 0-220 Lab Interpretation (test code = Normal 48772-7) [facility] (NA, K, CL, CO2, GLUCOSE, BUN, CREATININE, CA)2021-06-18 20:34:47 Test Item Value Reference Range Interpretation Comments NA (test code = 136 mmol/L 135-145 0289557801) K (test code = 4.3 mmol/L 3.5-5.0 1557865251) CL (test code = 105 mmol/L 98-108 4522405201) CO2 TOTAL (test code = 24 mmol/L 23-31 1514398467) AGAP (test code = 2-16 1561292887) BUN (test code = 9 mg/dL 7-23 2602686295) GLUCOSE (test code = 112 mg/dL 70-110 H 5992147246) CREATININE (test code = 0.80 mg/dL 0.50-1.04 2456914405) CALCIUM (test code = 8.8 mg/dL 8.6-10.6 2230970634) eGFR (test code = mL/min/1.73m2 9778977477) ISAMAR (test code = ISAMAR) Association of [...] tests). Lab Interpretation Abnormal (test code = 21852-1) [facility] 20:34:47 Test Item Value Reference Range Interpretation Comments LIPASE (test code = 0653978584) 74 U/L 0-220 Lab Interpretation (test code = Normal 71071-0) [facility] WITH [id number] 20:27:26 Test Item Value Reference Range Interpretation Comments WBC (test code = See_Comment [Automated message] 6690-2) The system ELERTS generated this result transmitted ref erence range: 4.30 - 1 1.10 10*3/?L. The re ference range was not u sed to interpret this result as normal/abnor mal. RBC (test code = See_Comment [Automated message] 349-8) The system ELERTS generated this result transmitted ref erence range: [...] RDW-SD (test code 46.2 fL 39.0-49.9 = 44975-8) RDW-CV (test code 14.2 % 12.0-15.5 = 788-0) PLT (test code = See_Comment [Automated message] 777-3) The system whic h generated this result transmitted ref erence range: 166 - 35 8 10*3/?L. The re ference range was not u sed to interpret this result as normal/abnor mal. MPV (test code = 11.3 fL 9.5-12.9 51389-1) NRBC/100 WBC (test See_Comment [Automat ed message] code = 0206641803) The syste m which generated this result transmitted ref erence range: 0.0 - 10 .0 /100 WBCs. The refer ence range was not u sed to interpret this result as normal/abnor mal. NRBC x10^3 (test <0.01 See_Comment [Automated message] code = 7505208586) The syste m which generated this result transmitted ref erence range: 10*3/?L. The reference range was not used to interpr et this result as normal/abnormal . GRAN MAT (NEUT) % 65.2 % (test code = 770-8) IMM GRAN % (test 0.20 % code = 5592529888) LYMPH % (test code 24.7 % = 736-9) MONO % (test code 6.4 % = 5905-5) EOS % (test code = 2.6 % 713-8) BASO % (test code 0.9 % = 706-2) GRAN MAT 3.80 10*3/uL 1.88-7.09 x10^3(ANC) (test code = 1220580758) IMM GRAN x10^3 <0.03 0.00-0.06 (test code = 0966711479) LYMPH x10^3 (test 1.44 10*3/uL 1.32-3.29 code = 731-0) MONO x10^3 (test 0.37 10*3/uL 0.33-0.92 code = 742-7) EOS x10^3 (test 0.15 10*3/uL 0.03-0.39 code = 711-2) BASO x10^3 (test 0.05 10*3/uL 0.01-0.07 code = 704-7) [facility] WITH [id number] 20:27:26 Test Item Value Reference Range Interpretation Comments WBC (test code = See_Comment [Automated message] 6690-2) The system ELERT[employer] generated this result transmitted ref erence range: 4.30 - 1 1.10 10*3/?L. The re ference range was not u sed to interpret this result as normal/abnor mal. RBC (test code = See_Comment [Automated message] 789-8) The system ELERTS generated this result transmitted ref erence range: [...] RDW-SD (test code 46.2 fL 39.0-49.9 = 88846-1) RDW-CV (test code 14.2 % 12.0-15.5 = 788-0) PLT (test code = See_Comment [Automated message] 337-3) The system [employer]ERT[employer] generated this result transmitted ref erence range: 166 - 35 8 10*3/?L. The re ference range was not u sed to interpret this result as normal/abnor mal. MPV (test code = 11.3 fL 9.5-12.9 85508-0) NRBC/100 WBC (test See_Comment [Automat ed message] code = 9774905002) The Application [employer] which generated this result transmitted ref erence range: 0.0 - 10 .0 /100 WBCs. The refer ence range was not u sed to interpret this result as normal/abnor mal. NRBC x10^3 (test <0.01 See_Comment [Automated message] code = 5970149387) The syste m which generated this result transmitted ref erence range: 10*3/?L. The reference range was not used to interpr et this result as normal/abnormal . GRAN MAT (NEUT) % 65.2 % (test code = 770-8) IMM GRAN % (test 0.20 % code = 6497679401) LYMPH % (test code 24.7 % = 736-9) MONO % (test code 6.4 % = 5905-5) EOS % (test code = 2.6 % 713-8) BASO % (test code 0.9 % = 706-2) GRAN MAT 3.80 10*3/uL 1.88-7.09 x10^3(ANC) (test code = 3276151658) IMM GRAN x10^3 <0.03 0.00-0.06 (test code = [id number]) LYMPH x10^3 (test 1.44 10*3/uL 1.32-3.29 code = 731-0) MONO x10^3 (test 0.37 10*3/uL 0.33-0.92 code = 742-7) EOS x10^3 (test 0.15 10*3/uL 0.03-0.39 code = 711-2) BASO x10^3 (test 0.05 10*3/uL 0.01-0.07 code = 704-7) [facility] [id number] 20:10:00 Test Item Value Reference Range Interpretation Comments POCT PREG (test code = 1605) negative On board controls acceptable with C present Line (test code = 3574) Lab Interpretation (test code = Normal 33873-3) [facility] [id number] 20:10:00 Test Item Value Reference Range Interpretation Comments POCT PREG (test code = 1605) negative On board controls acceptable with C present Line (test code = 3574) Lab Interpretation (test code = Normal 54305-1) [facility] [id number] 14:12:00 Test Item Value Reference Range Interpretation Comments POCT PREG (test code Negative = 1605) On board controls Yes acceptable with C Line (test code = 3574) POCT PREG LOT # (test code = 3575) POCT PREG TEST DATE (test code = 3576) ISAMAR (test code = ISAMAR) accurate development and interpretation of all internal controls [facility] [id number] 14:12:00 Test Item Value Reference Range Interpretation Comments POCT PREG (test code Negative = 1605) On board controls Yes acceptable with C Line (test code = 3574) POCT PREG LOT # (test code = 3575) POCT PREG TEST DATE (test code = 3576) ISAMAR (test code = ISAMAR) accurate development and interpretation of all internal controls [facility] [id number] 19:07:00 Test Item Value Reference Range Interpretation Comments POCT PREG (test code = 1605) Negative On board controls acceptable with C Yes Line (test code = 3574) POCT PREG LOT # (test code = 3575) POCT PREG TEST DATE (test code = 3576) Lab Interpretation (test code = Normal 08305-8) [facility] [id number] 19:07:00 Test Item Value Reference Range Interpretation Comments POCT PREG (test code = 1605) Negative On board controls acceptable with C Yes Line (test code = 3574) POCT PREG LOT # (test code = 3575) POCT PREG TEST DATE (test code = 3576) Lab Interpretation (test code = Normal 47991-2) [facility] [id number] 19:07:00 Test Item Value Reference Range Interpretation Comments POCT PREG (test code = 1605) Negative On board controls acceptable with C Yes Line (test code = 3574) POCT PREG LOT # (test code = 3575) POCT PREG TEST DATE (test code = 3576) Lab Interpretation (test code = Normal 25496-8) [facility] [id number] 05:20:14 Test Item Value Reference Range Interpretation Comments NA (test code = 139 mmol/L 135-145 7768159247) K (test code = 2.8 mmol/L 3.5-5.0 LL 6700611633) CL (test code = 113 mmol/L 98-108 H 3295577105) CO2 TOTAL (test code = 21 mmol/L 23-31 L 6950361365) AGAP (test code = 2-16 1318965825) BUN (test code = 10 mg/dL 7-23 0689765833) GLUCOSE (test code = 68 mg/dL 70-110 L 8024928308) CREATININE (test code = 0.47 mg/dL 0.50-1.04 L 2204324371) TOTAL BILI (test code = 0.3 mg/dL 0.1-1.2 6431272436) CALCIUM (test code = 6.7 mg/dL 8.6-10.6 L 7863215940) T PROTEIN (test code = 5.1 g/dL 6.3-8.2 L 7556986575) ALBUMIN (test code = 2.8 g/dL 3.5-5.0 L 0018142822) ALK PHOS (test code = 54 U/L 34-122 5768727486) ALTv (test code = 10 U/L 5-35 1742-6) AST(SGOT) (test code = 17 U/L 13-40 1299209064) eGFR (test code = mL/min/1.73m2 4400962955) ISAMAR (test code = ISAMAR) Association of [...] tests). Lab Interpretation Abnormal (test code = 20205-2) [facility] with [id number] 04:44:04 Test Item Value Reference Range Interpretation Comments WBC (test code = See_Comment [Automated message] 9490-2) The system ELERTS generated this result transmitted ref erence range: 4.30 - 1 1.10 10*3/?L. The re ference range was not u sed to interpret this result as normal/abnor mal. RBC (test code = See_Comment [Automated message] 269-8) The system ELERTS generated this result transmitted ref erence range: [...] RDW-SD (test code 45.1 fL 39.0-49.9 = 36909-0) RDW-CV (test code 13.8 % 12.0-15.5 = 788-0) PLT (test code = See_Comment [Automated message] 817-3) The system ELERTS generated this result transmitted ref erence range: 166 - 35 8 10*3/?L. The re ference range was not u sed to interpret this result as normal/abnor mal. MPV (test code = 12.0 fL 9.5-12.9 16286-7) NRBC/100 WBC (test See_Comment [Automat ed message] code = 3930339978) The syste m which generated this result transmitted ref erence range: 0.0 - 10 .0 /100 WBCs. The refer ence range was not u sed to interpret this result as normal/abnor mal. NRBC x10^3 (test <0.01 See_Comment [Automated message] code = 5264344623) The syste m which generated this result transmitted ref erence range: 10*3/?L. The reference range was not used to interpr et this result as normal/abnormal . GRAN MAT (NEUT) % 50.4 % (test code = 770-8) IMM GRAN % (test 0.50 % code = 0388751125) LYMPH % (test code 37.3 % = 736-9) MONO % (test code 7.2 % = 5905-5) EOS % (test code = 3.6 % 713-8) BASO % (test code 1.0 % = 706-2) GRAN MAT 2.94 10*3/uL 1.88-7.09 x10^3(ANC) (test code = 9119571331) IMM GRAN x10^3 0.03 10*3/uL 0.00-0.06 (test code = 3841423598) LYMPH x10^3 (test 2.18 10*3/uL 1.32-3.29 code = 731-0) MONO x10^3 (test 0.42 10*3/uL 0.33-0.92 code = 742-7) EOS x10^3 (test 0.21 10*3/uL 0.03-0.39 code = 711-2) BASO x10^3 (test 0.06 10*3/uL 0.01-0.07 code = 704-7) [facility]ysis[facility] 04:29:33 Test Item Value Reference Range Interpretation Comments APPEARANCE (test code = Hazy Clear A 9111291230) COLOR (test code = Yellow Yellow 4216570934) PH (test code = 4.8-8.0 6305993882) SP GRAVITY (test code = 1.003-1.030 5052246450) GLU U QUAL (test code = Normal Normal 4950279379) BLOOD (test code = Negative Negative 2270234224) KETONES (test code = Negative Negative 8069739415) PROTEIN (test code = 30 mg/dL Negative A 2887-8) UROBILIN (test code = 2.0 mg/dL Normal A 2597792993) BILIRUBIN (test code = Negative Negative 4339810262) NITRITE (test code = Negative Negative 0524953839) LEUK SOULEYMANE (test code = Negative Negative 2914700895) RBC/HPF (test code = <1 See_Comment [Autom ated message] 9791617239) The system ELERTS generated this result transmit [place] reference range : 0 - 3 HPF. The refe rence range was not u sed to interpret th is result as normal/abnormal . WBC/HPF (test code = <1 See_Comment [Autom ated message] 4665675873) The system ELERTS generated this result transmit [place] reference range : 0 - 5 HPF. The refe rence range was not u sed to interpret th is result as normal/abnormal . BACTERIA (test code = Negative Negative 6202050255) MUCOUS (test code = Moderate Negative LPF A 2480057459) AMORPHOUS (test code = Rare Rare HPF 3647737662) SQ EPITH (test code = HPF 8435593798) Lab Interpretation (test Abnormal code = 84087-5) [facility] Center[facility], [id number] 04:21:21 Test Item Value Reference Range Interpretation Comments LIPASE (test code = 5531470433) 69 U/L 0-220 Lab Interpretation (test code = Normal 16590-4) [facility] [id number] 03:30:00 Test Item Value Reference Range Interpretation Comments POCT PREG (test code = 1605) negative On board controls acceptable with C present Line (test code = 3574) Lab Interpretation (test code = Normal 18625-9) [facility]. METABOLIC PANEL (54337)2021-01-19 21:36:57 Test Item Value Reference Range Interpretation Comments NA (test code = 139 mmol/L 135-145 3544967498) K (test code = 4.2 mmol/L 3.5-5.0 2690938710) CL (test code = 106 mmol/L 98-108 0192038575) CO2 TOTAL (test code = 24 mmol/L 23-31 4773950967) AGAP (test code = 2-16 7481234698) BUN (test code = 20 mg/dL 7-23 7401061253) GLUCOSE (test code = 89 mg/dL 70-110 3940868869) CREATININE (test code = 0.73 mg/dL 0.50-1.04 0768455022) TOTAL BILI (test code = 0.6 mg/dL 0.1-1.0 6778950483) CALCIUM (test code = 9.0 mg/dL 8.6-10.6 9128597698) T PROTEIN (test code = 7.5 g/dL 6.3-8.2 6675147815) ALBUMIN (test code = 4.5 g/dL 3.5-5.0 6831230135) ALK PHOS (test code = 87 U/L 34-122 9552532444) ALTv (test code = 24 U/L 5-35 1742-6) AST(SGOT) (test code = 42 U/L 13-40 H 2867557985) eGFR (test code = mL/min/1.73m2 3764388571) ISAMAR (test code = ISAMAR) Association of [...] tests). Lab Interpretation Abnormal (test code = 07653-3) [facility]2021[facility] 21:25:51 Test Item Value Reference Range Interpretation Comments APPEARANCE (test code = Hazy Clear A 6344969311) COLOR (test code = Yellow Yellow 7178038684) PH (test code = 4.8-8.0 9185847040) SP GRAVITY (test code = 1.003-1.030 H 2789218621) GLU U QUAL (test code = Normal Normal 7614921720) BLOOD (test code = Negative Negative 3059170097) KETONES (test code = 5 mg/dL Negative A 9387171520) PROTEIN (test code = 30 mg/dL Negative A 2887-8) UROBILIN (test code = 2.0 mg/dL Normal A 6033450441) BILIRUBIN (test code = Negative Negative 6940475189) NITRITE (test code = Negative Negative 0930004844) LEUK SOULEYMANE (test code = Negative Negative 1742017309) RBC/HPF (test code = See_Comment H [Autom ated message] 2445911555) The system ELERTS generated this result transmit [place] reference range : 0 - 3 HPF. The refe rence range was not u sed to interpret th is result as normal/abnormal . WBC/HPF (test code = See_Comment [Autom ated message] 4303863236) The system ELERTS generated this result transmit [place] reference range : 0 - 5 HPF. The refe rence range was not u sed to interpret th is result as normal/abnormal . BACTERIA (test code = Negative Negative 8026794669) MUCOUS (test code = Marked Negative LPF A 3349959103) SQ EPITH (test code = HPF 6644786525) Lab Interpretation (test Abnormal code = 68894-5) [facility] Center[facility] P[facility] W [id number] 21:15:43CT Abdomen and Pelvis with intravenous contrast. [...] a large 5.5 cm size partially calcified uterinefibroid.[facility] WITH DIFF 2021-01-19 21:09:09 Test Item Value Reference Range Interpretation Comments WBC (test code = See_Comment [Automated message] 6690-2) The system ELERTS generated this result transmitted ref erence range: 4.30 - 1 1.10 10*3/?L. The re ference range was not u sed to interpret this result as normal/abnor mal. RBC (test code = See_Comment [Automated message] 789-8) The system ELERTS generated this result transmitted ref erence range: [...] RDW-SD (test code 45.5 fL 39.0-49.9 = 49028-7) RDW-CV (test code 14.0 % 12.0-15.5 = 788-0) PLT (test code = See_Comment [Automated message] 777-3) The system ELERTS generated this result transmitted ref erence range: 166 - 35 8 10*3/?L. The re ference range was not u sed to interpret this result as normal/abnor mal. MPV (test code = 11.4 fL 9.5-12.9 93750-7) NRBC/100 WBC (test See_Comment [Automat ed message] code = 9589507961) The syste m which generated this result transmitted ref erence range: 0.0 - 10 .0 /100 WBCs. The refer ence range was not u sed to interpret this result as normal/abnor mal. NRBC x10^3 (test <0.01 See_Comment [Automated message] code = 3018380949) The syste m which generated this result transmitted ref erence range: 10*3/?L. The reference range was not used to interpr et this result as normal/abnormal . GRAN MAT (NEUT) % 68.5 % (test code = 770-8) IMM GRAN % (test 0.40 % code = 4863366142) LYMPH % (test code 23.1 % = 736-9) MONO % (test code 6.1 % = 5905-5) EOS % (test code = 1.2 % 713-8) BASO % (test code 0.7 % = 706-2) GRAN MAT 5.18 10*3/uL 1.88-7.09 x10^3(ANC) (test code = 1210651488) IMM GRAN x10^3 0.03 10*3/uL 0.00-0.06 (test code = 7080049536) LYMPH x10^3 (test 1.75 10*3/uL 1.32-3.29 code = 731-0) MONO x10^3 (test 0.46 10*3/uL 0.33-0.92 code = 742-7) EOS x10^3 (test 0.09 10*3/uL 0.03-0.39 code = 711-2) BASO x10^3 (test 0.05 10*3/uL 0.01-0.07 code = 704-7) [facility]PO[facility] [id number] 20:54:00 Test Item Value Reference Range Interpretation Comments POCT PREG (test code = 1605) neg On board controls acceptable with yes C Line (test code = 3574) POCT PREG LOT # (test code = 3575) [id number] POCT PREG TEST DATE (test 08/31/2022 code = 3576) Lab Interpretation (test code = Normal 46042-9) [facility]IS2021-[facility]-10 01:31:00 Test Item Value Reference Range Interpretation Comments APPEARANCE (test code = Clear Clear 3363795690) COLOR (test code = Yellow Yellow 1551645583) PH (test code = 4.8-8.0 4581554200) SP GRAVITY (test code = 1.003-1.030 1010491609) GLU U QUAL (test code = Normal Normal 1257204262) BLOOD (test code = Negative Negative 0377583584) KETONES (test code = 5 mg/dL Negative A 5615740602) PROTEIN (test code = Negative Negative 2887-8) UROBILIN (test code = 2.0 mg/dL Normal A 8362659701) BILIRUBIN (test code = Negative Negative 1778901151) NITRITE (test code = Negative Negative 6851548371) LEUK SOULEYMANE (test code = Negative Negative 7251303333) RBC/HPF (test code = See_Comment [Autom ated message] 6471504203) The system ELERTS generated this result transmit [place] reference range : 0 - 3 HPF. The refe rence range was not u sed to interpret th is result as normal/abnormal . WBC/HPF (test code = See_Comment [Autom ated message] 1758582245) The system ELERTS generated this result transmit [place] reference range : 0 - 5 HPF. The refe rence range was not u sed to interpret th is result as normal/abnormal . BACTERIA (test code = Negative Negative 9679603455) MUCOUS (test code = Slight Negative LPF A 2120564584) SQ EPITH (test code = <1 HPF 6296137390) Lab Interpretation (test Abnormal code = 23846-3) [facility] CenterXR KNEE <3 VW [id number] 21:49:55 Narrowing on right knee 4mm, no fractureUnPeterson [facility] Center"
--- NOTE | 2022-08-12 21:49 | RAD REPORT ---
EXAM DESCRIPTION: - CP - 08/12/2022 9:40 pm CLINICAL HISTORY: DIZZINESS COMPARISON: No comparisons TECHNIQUE: Real-time sonographic evaluation of both carotid systems was performed. Doppler interroga tion was performed with waveform tracing bilaterally. FINDINGS: Normal high resistance waveforms are noted in both external carotid arteries. The common c arotid arteries and internal carotid arteries show normal low resistance waveforms. Minimal plaque at the bilateral proximal ICAs. Peak systolic velocities are mildly elevated in the le ft mid and distal ICA (119 cm/ second and 131 cm/second). This is probably technique related as there is minimal identifiable plaque. The remaining peak systolic velocities and end-diastolic velocities are within normal limits. Antegrade flow seen in both vertebral arteries. IMPRESSION: Minimal atherosclerotic disease. No evidence of a hemodynamically significant stenosis.
--- NOTE | 2022-08-12 21:53 | RAD REPORT ---
EXAM DESCRIPTION: CT - Head Brain Wo Cont - 08/12/2022 9:47 pm CLINICAL HISTORY: Headache, sudden, severe COMPARISON: Head Brain Wo Cont dated 03/06/2022; Head Brain Wo Cont dated 01/22/2017 TECHNIQUE: All CT scans are performed using dose optimization technique as appropriate and may inclu de automated exposure control or mA/KV adjustment according to patient size. FINDINGS: No intracranial hemorrhage, hydrocephalus or extra-axial fluid collection.No areas of brai n edema or evidence of midline shift. The paranasal sinuses and mastoids are clear. The calvarium is intact. IMPRESSION: No acute intracranial abnormality.
--- NOTE | 2022-08-12 21:57 | RAD REPORT ---
EXAM DESCRIPTION: RAD - Chest Single View - 08/12/2022 9:49 pm CLINICAL HISTORY: COUGH COMPARISON: Chest Single View dated 09/18/2016; Chest Single View dated 04/10/2016; CHEST PA AND LAT 2 VIEW dated 04/09/2012; CHEST SINGLE VIEW dated 05/08/2011 FINDINGS: Lines: None. Lungs: Mild opacities in the medial right lung base. Pleural: No significant pleural effusions or pneumothorax. Cardiac: The heart size is within normal limits. Mediastinum: Within normal limits. Bones: No acute fractures. Other: None IMPRESSION: Mild new opacities in the right lung base which could reflect mild pneumonia.
[2022-08-12] MEDS ORDERED: FENTANYL CITR 100 MCG/2 ML ONE (23:46)
[2022-08-12] MEDS ORDERED: AMLODIPINE 10 MG TAB ONE (23:47)
[2022-08-12] MEDS ORDERED: ONDANSETRON 4 MG/2 ML VIAL ONE (23:47)
[2022-08-12] MEDS ORDERED: NA CHLORIDE 0.9% 500 ML ONE (23:47)
[2022-08-12 23:54] LABS: Hematocrit 41.4 % (36.0-45.0); Lymphocytes % 23.4 % (15.3-44.8); MCV 93.1 fL (80-100); MPV 9.1 fL (7.6-11.3); RBC Red Blood Cell Count 4.45 M/uL (3.86-4.86)
[2022-08-12 23:59] LABS: Protime INR 1.06
[2022-08-13 00:07] LABS: Urine Blood Negative (Negative); Urine Glucose Negative (Negative); Urine Protein Negative (Negative); Urine Specific Gravity 1.025 (1.005-1.030)
[2022-08-13 00:17] LABS: Urine Specific Gravity/Preg 1.025 (1.005-1.030)
[2022-08-13 01:15] LABS: Albumin 3.8 g/dL (3.4-5.0); Bilirubin Direct 0.1 mg/dL (0-0.2); Magnesium 1.9 mg/dL (1.8-2.4); Potassium 3.2 mmol/L (3.5-5.1)
[2022-08-13 01:21] LABS: Bilirubin Total 0.3 mg/dL (0.2-1.0); Protein, Total 7.6 g/dL (6.4-8.2); Troponin High Sensitivity 3.9 pg/mL (<58.9)
[2022-08-13 01:21] LABS: Barbiturates NEGATIVE (NEGATIVE); Benzodiazepines NEGATIVE (NEGATIVE); Cocaine NEGATIVE (NEGATIVE); METHAMPHETAM NEGATIVE (NEGATIVE); Methadone NEGATIVE (NEGATIVE); Opiates NEGATIVE (NEGATIVE); Phencyclidine NEGATIVE (NEGATIVE); THC Cannibis NEGATIVE (NEGATIVE)
--- NOTE | 2022-08-13 01:38 | ER ---
Nurse's Notes [facility] Name: Kristina Christensen Age: 37 yrs Sex: Female : 1985 Arrival Date: 08/12/2022 Time: 20:55 Bed 8 Private MD: Diagnosis: Essential (primary) hypertension;Headache;Hypokalemia Presentation: 08/12 21:02 Chief complaint: Left sided headache that radiates to left face and neck since this hb morning. Home BP 136/106. Coronavirus screen: At this time, the client does not indicate any symptoms associated with coronavirus-19. Ebola Screen: No symptoms or risks identified at this time. Risk Assessment: Do you want to hurt yourself or someone else? Patient reports no desire to harm self or others. Onset of symptoms was August 12, 2022. 21:02 Method Of Arrival: Wheelchair hb 21:02 Acuity: GAURAV 3 hb 08/13 02:22 Initial Sepsis Screen: Does the patient meet any 2 criteria? No. Patient's initial aa9 sepsis screen is negative. Does the patient have a suspected source of infection? No. Patient's initial sepsis screen is negative. Historical: - Allergies: 08/12 21:03 tramadol; hb - PMHx: 21:03 Cancer; remission from cervical cancer for 3.5 years; Cerebrovascular accident; hb Crohn's; Hypertension; Seizures; - PSHx: 21:03 Ligation of fallopian tube; hb - Immunization history:: Adult Immunizations up to date. - Social history:: Smoking status: unknown. Screenin:10 Abuse screen: Denies threats or abuse. Nutritional screening: No deficits noted. bb Tuberculosis screening: No symptoms or risk factors identified. Fall Risk None identified. Assessment: 21:10 General: Appears in no apparent distress. uncomfortable, Behavior is calm, cooperative. bb Pain: Complains of pain in head. Neuro: Level of Consciousness is awake, alert, obeys commands, Oriented to person, place, time, situation. 21:10 Cardiovascular: Capillary refill < 3 seconds Patient's skin is warm and dry. bb Respiratory: Respiratory effort is even, unlabored, Respiratory pattern is regular. GI: No signs and/or symptoms were reported involving the gastrointestinal system. Derm: Skin is dry, Skin is normal, Skin temperature is warm. Musculoskeletal: Circulation, motion, and sensation intact. 22:00 Reassessment: Patient is alert, oriented x 3, equal unlabored respirations, skin bb warm/dry/pink. awaiting diagnostic results, family at bedside. 08/13 01:46 Reassessment: Patient is alert, oriented x 3, equal unlabored respirations, skin bb warm/dry/pink. Patient states feeling better. 02:23 Reassessment: pt understands discharge instructions, pt left er via wheelchair with aa9 family members, denies concerns. Vital Signs: 08/12 21:02 BP 162 / 116; Pulse 79; Resp 16; Temp 98.5; Pulse Ox 100% on R/A; Weight 106.14 kg; hb Height 5 ft. 4 in. (162.56 cm); Pain 10/10; 23:30 BP 146 / 88; Pulse 69; Resp 14; Pulse Ox 99% on R/A; bb 23:41 BP 142 / 84; Pulse 68; Resp 16 S; Pulse Ox 99% on R/A; bb 08/13 01:45 BP 123 / 78; Pulse 69; Resp 16 S; Pulse Ox 99% on R/A; Pain 4/10; bb 02:15 BP 119 / 76; Pulse 62; Resp 16; Pulse Ox 99% on R/A; aa9 08/12 21:02 Body Mass Index 40.17 (106.14 kg, 162.56 cm) hb Springer Coma Score: 08/12 23:58 Eye Response: spontaneous(4). Verbal Response: oriented(5). Motor Response: obeys mary beth commands(6). Total: 15. NIH Stroke Scale Scores: 08/13 00:06 NIHSS Score: 0 [facility] ED Course: 08/12 20:55 Patient arrived in ED. bp1 21:03 Triage completed. hb 21:03 Arm band placed on. hb 21:10 Patient has correct armband on for positive identification. Bed in low position. Call bb light in reach. Side rails up X2. Adult w/ patient. Pulse ox on. NIBP on. 21:12 Eron Bowden MD is Attending Physician. mary beth 21:42 US Carotid Artery Bilateral In Process Unspecified. EDMS 21:49 CT Head Brain wo Cont In Process Unspecified. EDMS 21:51 XRAY Chest (1 view) In Process Unspecified. EDMS 23:30 Initial lab(s) drawn, by me, sent to lab. Inserted saline lock: 20 gauge in left bb antecubital area, using aseptic technique. Blood collected. 08/13 00:07 Twila Elena, ASCENCION is Primary Nurse. bb 01:37 Amilcar Corley MD is Referral Physician. mary beth 02:22 No provider procedures requiring assistance completed. IV discontinued, intact, aa9 bleeding controlled, No redness/swelling at site. Pressure dressing applied. Administered Medications: 08/12 23:40 Drug: Norvasc (amlodipine) 10 mg Route: PO; 08/13 01:46 Follow up: Response: Blood pressure is lowered 08/12 23:40 Drug: NS 0.9% 500 ml Route: IV; Rate: bolus; Site: left antecubital; 08/13 01:47 Follow up: IV Status: Completed infusion; IV Intake: 450ml 08/12 23:40 Drug: Zofran (Ondansetron) 4 mg Route: IVP; Site: left antecubital; 08/13 01:47 Follow up: Response: No adverse reaction 08/12 23:45 Drug: fentaNYL (PF) 50 mcg Route: IVP; Site: left antecubital; 08/13 01:47 Follow up: Response: Pain is decreased bb 00:08 CANCELLED (Physician Discretion): Labetalol 10 mg IV at per protocol once bb 00:08 CANCELLED (Physician Discretion): Labetalol 10 mg IV at per protocol once bb 02:21 Drug: TORadol (ketorolac) 30 mg Route: IVP; Site: left antecubital; aa9 02:21 Follow up: Response: No adverse reaction aa9 02:21 Drug: Potassium Effervescent Tablet 50 mEq Route: PO; aa9 02:21 Follow up: Response: No adverse reaction aa9 Medication: 08/12 21:10 VIS not applicable for this client. bb Intake: 08/13 01:47 IV: 450ml; Total: 450ml. bb Outcome: 01:37 Discharge ordered by . mary beth 02:23 Discharged to home via wheelchair, with family. aa9 02:23 Condition: stable 02:23 Condition: stable 02:23 Discharge instructions given to patient, Instructed on discharge instructions, follow up and referral plans. medication usage, Demonstrated understanding of instructions, follow-up care, medications, Prescriptions given X 3. 02:24 Patient left the ED. aa9 NIH Stroke Scale - NIH Stroke Score Date: 08/13/2022 Time: 00:06 Total Score = 0 1a. Level of Consciousness (LOC) - 0(Alert) 1b. Level of Consciousness (LOC) (Month \T\ Age) - 0(Both) 1c. LOC Commands (Open \T\ Closes Eyes/[employer]) - 0(Both) 2. Best Gaze (Lateral Gaze Paresis) - 0(Normal) 3. Visual Field Loss - 0(No visual loss) 4. Facial Palsy - 0(Normal) 5a. Left Arm: Motor (10-second hold) - 0(No drift) 5b. Right Arm: Motor (10-second hold) - 0(No drift) 6a. Left Leg: Motor (5-second hold - always test supine) - 0(No drift) 6b. Right Leg: Motor (5-second hold - always test supine) - 0(No drift) 7. Limb Ataxia (finger/nose \T\ heel/patton - test with eyes open) - 0(Absent) 8. Sensory Loss (pinprick arms/legs/face) - 0(Normal) 9. Best Language: Aphasia (description/naming/reading) - 0(No aphasia) 10. Dysarthria (speech clarity - read or repeat words) - 0(Normal) 11. Extinction and Inattention (visual/tactile/auditory/spatial/personal) - 0(No abnormality) Initials: mary beth Signatures: Dispatcher [employer] EDMS Eron Bowden MD MD cha Ballard, Brenda, ASCENCION RN Dagmar Keller, Laura Velazquez RN, Aylin, ASCENCION RN aa9 Corrections: (The following items were deleted from the chart) 01:44 08/12 21:10 General: Appears in no apparent distress. uncomfortable, Behavior bb is calm, cooperative, bb 08/13 02:23 02:23 Discharge instructions given to patient, Instructed on discharge aa9 instructions, follow up and referral plans. medication usage, Demonstrated understanding of instructions, follow-up care, medications, Prescriptions given X aa9 02:24 02:23 Discharged to home ambulatory, with family, aa9 aa9
--- NOTE | 2022-08-13 01:38 | EDPHYS ---
Physician Documentation [facility] Name: Kristina Christensen Age: 37 yrs Sex: Female : 1985 Arrival Date: 08/12/2022 Time: 20:55 Bed 8 Private MD: KHARI Physician Eron Bowden HPI: 08/12 23:56 This 37 yrs old Black Female presents to ER via Wheelchair with complaints of High mary beth Blood Pressure, Headache. 23:56 The patient has elevated blood pressure and discovered this at home, with a home mary beth device. Onset: The symptoms/episode began/occurred just prior to arrival. Modifying factors: The symptoms are aggravated by activity, The symptoms are alleviated by remaining still. Associated signs and symptoms: Pertinent positives: headache. Severity of symptoms: At its worst the blood pressure was moderate, in the emergency department the blood pressure is unchanged. The patient has not experienced similar symptoms in the past. Historical: - Allergies: 21:03 tramadol; hb - PMHx: 21:03 Cancer; remission from cervical cancer for 3.5 years; Cerebrovascular accident; hb Crohn's; Hypertension; Seizures; - PSHx: 21:03 Ligation of fallopian tube; hb - Immunization history:: Adult Immunizations up to date. - Social history:: Smoking status: unknown. ROS: 23:57 Constitutional: Negative for fever, chills, and weight loss, Eyes: Negative for injury, mary beth pain, redness, and discharge, ENT: Negative for injury, pain, and discharge, Neck: Negative for injury, pain, and swelling, Cardiovascular: Negative for chest pain, palpitations, and edema, Respiratory: Negative for shortness of breath, cough, wheezing, and pleuritic chest pain, Abdomen/GI: Negative for abdominal pain, nausea, vomiting, diarrhea, and constipation, Back: Negative for injury and pain, : Negative for injury, bleeding, discharge, and swelling, MS/Extremity: Negative for injury and deformity, Skin: Negative for injury, rash, and discoloration, Psych: Negative for depression, anxiety, suicide ideation, homicidal ideation, and hallucinations, Allergy/Immunology: Negative for hives, rash, and allergies, Endocrine: Negative for neck swelling, polydipsia, polyuria, polyphagia, and marked weight changes, Hematologic/Lymphatic: Negative for swollen nodes, abnormal bleeding, and unusual bruising. 23:57 Neuro: Positive for headache, weakness. Exam: 23:57 Constitutional: This is a well developed, well nourished patient who is awake, alert, mary beth and in no acute distress. Head/Face: Normocephalic, atraumatic. Eyes: Pupils equal round and reactive to light, extra-ocular motions intact. Lids and lashes normal. Conjunctiva and sclera are non-icteric and not injected. Cornea within normal limits. Periorbital areas with no swelling, redness, or edema. ENT: Nares patent. No nasal discharge, no septal abnormalities noted. Tympanic membranes are normal and external auditory canals are clear. Oropharynx with no redness, swelling, or masses, exudates, or evidence of obstruction, uvula midline. Mucous membranes moist. Neck: Trachea midline, no thyromegaly or masses palpated, and no cervical lymphadenopathy. Supple, full range of motion without nuchal rigidity, or vertebral point tenderness. No Meningismus. Chest/axilla: Normal chest wall appearance and motion. Nontender with no deformity. No lesions are appreciated. Cardiovascular: Regular rate and rhythm with a normal S1 and S2. No gallops, murmurs, or rubs. Normal PMI, no JVD. No pulse deficits. Respiratory: Lungs have equal breath sounds bilaterally, clear to auscultation and percussion. No rales, rhonchi or wheezes noted. No increased work of breathing, no retractions or nasal flaring. Abdomen/GI: Soft, non-tender, with normal bowel sounds. No distension or tympany. No guarding or rebound. No evidence of tenderness throughout. Back: No spinal tenderness. No costovertebral tenderness. Full range of motion. Skin: Warm, dry with normal turgor. Normal color with no rashes, no lesions, and no evidence of cellulitis. MS/ Extremity: Pulses equal, no cyanosis. Neurovascular intact. Full, normal range of motion. Neuro: Awake and alert, GCS 15, oriented to person, place, time, and situation. Cranial nerves II-XII grossly intact. Motor strength 5/5 in all extremities. Sensory grossly intact. Cerebellar exam normal. Normal gait. Psych: Awake, alert, with orientation to person, place and time. Behavior, mood, and affect are within normal limits. Vital Signs: 21:02 BP 162 / 116; Pulse 79; Resp 16; Temp 98.5; Pulse Ox 100% on R/A; Weight 106.14 kg; hb Height 5 ft. 4 in. (162.56 cm); Pain 10/10; 23:30 BP 146 / 88; Pulse 69; Resp 14; Pulse Ox 99% on R/A; bb 23:41 BP 142 / 84; Pulse 68; Resp 16 S; Pulse Ox 99% on R/A; bb 08/13 01:45 BP 123 / 78; Pulse 69; Resp 16 S; Pulse Ox 99% on R/A; Pain 4/10; bb 02:15 BP 119 / 76; Pulse 62; Resp 16; Pulse Ox 99% on R/A; aa9 08/12 21:02 Body Mass Index 40.17 (106.14 kg, 162.56 cm) hb NIH Stroke Scale Scores: 00:06 NIHSS Score: 0 mary beth Lexi Coma Score: 08/12 23:58 Eye Response: spontaneous(4). Verbal Response: oriented(5). Motor Response: obeys mary beth commands(6). Total: 15. MDM: 21:13 Patient medically screened. mary beth 23:58 Differential diagnosis: hypertensive crisis, Malignant HTN, intracerebral hemorrhage, mary beth hypertensive headache, hyponatremia. Data reviewed: vital signs, nurses notes, lab test result(s), EKG, radiologic studies, CT scan, plain films. Data interpreted: surveillance system monitor: rate is 68 beats/min, rhythm is regular, Pulse oximetry: on room air is 99 %. Test interpretation: by ED physician or midlevel provider: ECG, plain radiologic studies. 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 08/12 21:16 Order name: Basic Metabolic Panel; Complete Time: : [facility] 08/12 21:16 Order name: CBC with Diff; Complete Time: 00:36 [facility] 08/12 21:16 Order name: LFT's; Complete Time: :36 [facility] 08/12 21:16 Order name: Magnesium; Complete Time: : [facility] 08/12 21:16 Order name: NT PRO-BNP; Complete Time: [facility] 08/12 21:16 Order name: PT-INR; Complete Time: 00:36 [facility] 08/12 21:07 Order name: CT Head Brain wo Cont; Complete Time: 23:40 08/12 21:16 Order name: Troponin HS; Complete Time: 01:36 [facility] 08/12 21:16 Order name: XRAY Chest (1 view); Complete Time: 23:40 [facility] 08/12 21:16 Order name: US Carotid Artery Bilateral; Complete Time: 23:40 [facility] 08/12 21:16 Order name: UDS; Complete Time: 01:36 [facility] 08/13 00:07 Order name: Urine Dipstick-Ancillary; Complete Time: 00:36 EDMS 08/13 00:08 Order name: Urine --Ancillary (enter results); Complete Time: 00:36 mw2 08/12 21:16 Order name: EKG; Complete Time: 21:17 [facility] 08/12 21:16 Order name: Cardiac monitoring; Complete Time: 02:21 [facility] 08/12 21:16 Order name: EKG - Nurse/Tech; Complete Time: 02:21 [facility] 08/12 21:16 Order name: IV Saline Lock; Complete Time: 02:21 [facility] 08/12 21:16 Order name: Labs collected and sent; Complete Time: 02:21 [facility] 08/12 21:16 Order name: O2 Per Protocol; Complete Time: 02:21 [facility] 08/12 21:16 Order name: O2 Sat Monitoring; Complete Time: 02:21 [facility] 08/12 21:16 Order name: Urine Dipstick-Ancillary (obtain specimen) [facility] 08/13 00:04 Order name: Labs - recollect needed: green top; Complete Time: 01:47 mw2 Administered Medications: 23:40 Drug: Norvasc (amlodipine) 10 mg Route: PO; 08/13 01:46 Follow up: Response: Blood pressure is lowered 08/12 23:40 Drug: NS 0.9% 500 ml Route: IV; Rate: bolus; Site: left antecubital; 08/13 01:47 Follow up: IV Status: Completed infusion; IV Intake: 450ml 08/12 23:40 Drug: Zofran (Ondansetron) 4 mg Route: IVP; Site: left antecubital; 08/13 01:47 Follow up: Response: No adverse reaction bb 08/12 23:45 Drug: fentaNYL (PF) 50 mcg Route: IVP; Site: left antecubital; bb 08/13 01:47 Follow up: Response: Pain is decreased bb 00:08 CANCELLED (Physician Discretion): Labetalol 10 mg IV at per protocol once bb 00:08 CANCELLED (Physician Discretion): Labetalol 10 mg IV at per protocol once bb 02:21 Drug: TORadol (ketorolac) 30 mg Route: IVP; Site: left antecubital; aa9 02:21 Follow up: Response: No adverse reaction aa9 02:21 Drug: Potassium Effervescent Tablet 50 mEq Route: PO; aa9 02:21 Follow up: Response: No adverse reaction aa9 Disposition Summary: 08/13/22 01:37 Discharge Ordered Location: Home mary beth Problem: new mary beth Symptoms: have improved mary beth Condition: Stable mary beth Diagnosis - Essential (primary) hypertension mary beth - Headache mary beth - Hypokalemia mary beth Followup: mary beth - With: Private Physician - When: 2 - 3 days - Reason: Recheck today's complaints, Continuance of care, Re-evaluation by your physician Followup: mary beth - With: - When: 2 - 3 days - Reason: Recheck today's complaints, Re-evaluation by your physician Discharge Instructions: - Discharge Summary Sheet mary beth - Potassium Content of Foods mary beth - Hypertension, Adult mary beth - Hypertension, Adult, [id number] mary beth - Managing Your Hypertension mary beth - Hypokalemia mary beth Forms: - Medication Reconciliation Form mary beth - Thank You Letter mary beth - Antibiotic Education mary beth - Prescription Opioid Use mary beth Prescriptions: - Norvasc 5 mg Oral Tablet - take 1 tablet by ORAL route once daily; 20 tablet; Refills: 0, Product mary beth Selection Permitted - Hydrochlorothiazide 12.5 mg Oral Tablet - take 1 tablet by ORAL route once daily; 30 tablet; Refills: 0, Product mary beth Selection Permitted - Diclofenac Sodium 75 mg Oral tablet,delayed release (DR/EC) - take 1 tablet by ORAL route 2 times per day; 14 tablet; Refills: 0, Product mary beth Selection Permitted NIH Stroke Scale - NIH Stroke Score Date: 08/13/2022 Time: 00:06 Total Score = 0 1a. Level of Consciousness (LOC) - 0(Alert) 1b. Level of Consciousness (LOC) (Month \T\ Age) - 0(Both) 1c. LOC Commands (Open \T\ Closes Eyes/Pensionholder Information Clerk) - 0(Both) 2. Best Gaze (Lateral Gaze Paresis) - 0(Normal) 3. Visual Field Loss - 0(No visual loss) 4. Facial Palsy - 0(Normal) 5a. Left Arm: Motor (10-second hold) - 0(No drift) 5b. Right Arm: Motor (10-second hold) - 0(No drift) 6a. Left Leg: Motor (5-second hold - always test supine) - 0(No drift) 6b. Right Leg: Motor (5-second hold - always test supine) - 0(No drift) 7. Limb Ataxia (finger/nose \T\ heel/patton - test with eyes open) - 0(Absent) 8. Sensory Loss (pinprick arms/legs/face) - 0(Normal) 9. Best Language: Aphasia (description/naming/reading) - 0(No aphasia) 10. Dysarthria (speech clarity - read or repeat words) - 0(Normal) 11. Extinction and Inattention (visual/tactile/auditory/spatial/personal) - 0(No abnormality) Initials: mary beth Signatures: Dispatcher [employer] EDMS Eron Bowden MD MD cha Ballard, Brenda, RN RN bb Baxter, Heather, RN RN hb [place], MyKena 2 Aletha Zamora, ASCENCION RN aa9 Corrections: (The following items were deleted from the chart) 00:08 08/12 21:16 Labetalol 10 mg IV at per protocol once ordered. mary beth chacon 08/13 00:08 08/12 21:16 Labetalol 10 mg IV at per protocol once ordered. mary beth chacon
[2022-08-13] MEDS ORDERED: KETOROLAC 30 MG/ML INJ ONE (02:13)
[2022-08-13] MEDS ORDERED: POTASSIUM 25 MEQ EFFERV TAB ONE (02:13)
[2022-08-13 03:53] VITALS: TEMP 98.5
[2022-08-13 03:59] VITALS: O2SAT 99
[2022-08-13 04:12] VITALS: BP 119/76
== END 2022-08-13 02:24 | disposition home or self-care (01) ==
LOC: ER 20:55
DX: R51.9 Headache, unspecified (principal); I10 Essential (primary) hypertension; E87.6 Hypokalemia; Z88.5 Allergy status to narcotic agent; Z85.41 Personal history of malignant neoplasm of cervix uteri
CPT/HCPCS: 96361; 85025; 80048; 36415; 83735; 81025; 85610; 80076; 81003; 84484; 83880; 80307; 70450; 71045; 93880; 96375; 96374; 99284; J3010; J7040; J2405

== ENCOUNTER 2022-12-17 23:55 | Emergency (ER) | payer OTHER ==
--- OUTSIDE RECORDS SUMMARY | 2022-12-18 00:06 | XMS REPORT | Continuity of Care Document ---
:1985 Author Organization [facility] t Address [address] [place] [place] [address] Care Team Providers Name Role Phone MARVIN Foley [facility] Primary Care P hysician Unavailable Jose Harris Attending Clinician Unavailable KARLEE GOMEZ Attending Clinician Unavailable Karlee Gomez DO Attending Clinician Doctor Unassigned, [place] Attending Clinician Unavailable Nohemi Phillip Attending Clinician [...] Number Effective Date Expiration Date Chapis CHIRINOSS [id number] 2020 HEALTH 00:00:00 MEDICAID [facility] [id number] 2019 00:00:00 MEDICAID SSI PENDING 2019 PENDING [...] Exposure to Not sure University of SARS-CoV-2 [facility] (event) Branch Alcohol intake 2021-10-31 2021-10-31 Current drinker Unive rsity of 00:00:00 00:00:00 of alcohol [place] [facility] (finding) Branch Tobacco use and 2021-01-27 2021-01-27 Never used Universit y of exposure 00:00:00 00:00:00 [facility] Alcohol Comment 2018-01-31 2018-01-31 social Universit y of 00:00:00 00:00:00 [facility] Sex Ass[birth year] Universit y of 00:00:00 00:00:00 [facility] Smoking Status Start Date Stop Date Source Former smoker 2021-01-27 00:00:00 2021-01-27 00:00:00 [facility] Never smoker [facility] Medications Ordered Filled Start Stop Current Ordering [...] 10/31/21 at 1345, OSVALDO amoxicillin 2021- No [id number] 875mg Take 1 Univers 875 mg 10-31 tablet by ity of tablet 00:00: 05:59 mouth 2 [place] 00 :00 (two) Medical times [place] daily for 10 days. iopamidol 2020- No [id number] 100mL 100 mL, Univers (ISOVUE 06-19 Intravenou ity o f 370-500 mL) 00:00: 00:00 s, ONCE, 1 [place] injection 00 :00 dose, On Medica l 100 mL Fri Branch 06/18/21 at 1900, Routine iopamidol 2020- No [id number] 100mL 100 mL, Univers (ISOVUE 06-19 Intravenou [...] Branch Mon06/18/21 at 1700, STAT ondansetron Yes [id number] 4mg Take 1 Univers (ZOFRAN 9-17 tablet [...] Indication s: acute pain ondansetron 2020-0 Yes [id number] 4mg Take 1 Univers (ZOFRAN 9-17 tablet [...] Indication s: acute pain ondansetron 2020-0 Yes [id number] 4mg Take 1 Univers (ZOFRAN 9-17 tablet [...] Indication s: acute pain ondansetron 2020-0 Yes [id number] 4mg Take 1 Univers (ZOFRAN 9-17 tablet [...] s: acute pain levonorgest 2020-0 202- No [id number] 1{devic Univers reL 03-29- e} ity of (MIRENA) 15:45: 14:35 [place] IUD 1 00 :00 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 03/29/21 at 1045, Routine miSOPROStoL Yes [id number] 200ug Take 1 Univers 200 mcg 6-09 tablet by ity of tablet 00:00: [facility] 00 SEE-INSTRU Medical CTIONS. Branch miSOPROStoL Yes [id number] 200ug Take 1 Univers 200 mcg 6-09 tablet by ity of tablet 00:00: [facility] 00 SEE-INSTRU Medical CTIONS. Branch miSOPROStoL Yes [id number] 200ug Take 1 Univers 200 mcg 6-09 tablet by ity of tablet 00:00: [facility] 00 SEE-INSTRU Medical CTIONS. Branch miSOPROStoL 2020- No [id number] 200ug Take 1 Univers 200 mcg 6-09 -28 tablet by ity of tablet 00:00: 00:00 [facility] 00 :00 SEE-INSTRU Medical CTIONS. Branch miSOPROStoL 2020- No [id number] 200ug Take 1 Univers 200 mcg 6-09 06-28 tablet by ity of tablet 00:00: 00:00 [facility] 00 :00 SEE-INSTRU Medical CTIONS. Branch ketorolac 2020- No 30mg 30 mg, Unive rs (TORADOL) 02-22 Slow IV ity of injection 07:30: 06:33 [place], [place] 30 mg 00 :00 ONCE, 1 Medical dose, [facility] 02/22/21 at 0230, OSVALDO
Fa culty member approving Restricted medication : SHITAL, K RONI KCL 2020- No 20meq 20 mEq, IV Unive rs (POTASSIUM 02-22 Piggyback, it y of CHLORIDE) 06:30: 05:53 ONCE, 1 [place] 20 mEq in 00 :00 dose, [facility] Medic [facility] NaCl 0.9% 02/22/21 at [facility] ch (NS) 100 mL 0130, 100 piggyback mL KCL 2020- No 40meq 40 mEq, Univers (KLOR-CON 02-22 Oral, ity of M20) tablet 06:30: 05:45 ONCE, 1 [place] 40 mEq 00 :00 dose, Mon Medical 02/22/21 at [place] 0130, Routine acetaminoph 2020- No 1000mg 1,000 mg, Univers en 02-22 Oral, ity of (TYLENOL) 05:00: 04:02 ONCE, [place] tablet 00 :00 dose, [facility] 1,000 mg 02/22/21 at [facility] [place] h 0000, OSVALDO ondansetron 2020- No 4mg [...] 1,000 mL 00 :00 IV Medical Infusion, [place] ONCE, 1 dose, [facility] 02/22/21 at 0000, STAT iopamidol 2020- No [id number] 120mL 120 mL, Univers (ISOVUE 02-22 Intravenou ity o f 370-500 mL) 04:08: 04:11 s, ONCE, 1 [place] injection 00 :00 dose, Sun Medic al 120 mL 02/21/21 at Branch 2315, Routine polyethylen 2020- No [id number] 17g Take 17 g Univers e glycol 5-24 05-29 by mouth ity of 3350 00:00: 04:59 daily for [place] (MIRALAX) 00 :00 4 days. Medical 17 [place] gram/dose powder polyethylen 2020- No [id number] 17g Take 17 g Univers e glycol 5-24 05-29 by mouth ity of 3350 00:00: 04:59 daily for [place] (MIRALAX) 00 :00 4 days. Medical 17 [place] gram/dose powder polyethylen 2020- No [id number] 17g Take 17 g Univers e glycol 5-24 05-29 by mouth ity of 3350 00:00: 04:59 daily for [place] (MIRALAX) 00 :00 4 days. Medical 17 [place] gram/dose powder polyethylen 2020- No [id number] 17g Take 17 g Univers e glycol 5-24 05-29 by mouth ity of 3350 00:00: 04:59 daily for [place] (MIRALAX) 00 :00 4 days. Medical 17 [place] gram/dose powder miSOPROStoL Yes [id number] 200ug Take 1 Univers 200 mcg 4-28 tablet by ity of tablet 00:00: mouth [place] 00 SEE-INSTRU Medical CTIONS. Branch Take one tab the night before and one tab the morning of procedure miSOPROStoL Yes [id number] 200ug Take 1 Univers 200 mcg 4-28 tablet by ity of tablet 00:00: mouth 00 SEE-INSTRU Medical CTIONS. Branch Take one tab the night before and one tab the morning of procedure miSOPROStoL Yes [id number] 200ug Take 1 Univers 200 mcg 4-28 tablet by ity of tablet 00:00: mouth SEE-INSTRU Medical CTIONS. Branch Take one tab the night before and one tab the morning of procedure miSOPROStoL 2020- No [id number] 200ug Take 1 Univers 200 mcg 4-28 05-26 tablet by ity of tablet 00:00: 00:00 mouth [place] 00 :00 SEE-INSTRU Medical CTIONS. Branch Take one tab the night before and one tab the morning of procedure miSOPROStoL 2020- No [id number] 200ug Take 1 Univers 200 mcg 4-28 05-26 tablet by ity of tablet 00:00: 00:00 mouth [place] 00 :00 SEE-INSTRU Medical CTIONS. Branch Take one tab the night before and one tab the morning of procedure miSOPROStoL 2020- No [id number] 200ug Take 1 Univers 200 mcg 4-28 [...] at Branch 1630, OSVALDO iohexol 2020- No [id number] 120mL 120 mL, U nivers (OMNIPAQUE 01-19-20 Intravenou it y of 350 21:15: 21:15 s, ONCE, 1 [place] BULK-150 00 :00 dose, Tue Medica l mL) 01/19/21 at [place] injection 1615, 120 mL Routine ibuprofen Yes [id number] 800mg Take 1 U nivers 800 mg 4-20 tablet by ity of tablet 00:00: mouth [place] 00 every 8 Medical (eight) Branch hours as needed for Pain (scale 4-6). Take with food ibuprofen Yes [id number] 800mg Take 1 U nivers 800 mg 4-20 tablet by ity of tablet 00:00: mouth [place] 00 every 8 Medical (eight) Branch hours as needed for Pain (scale 4-6). Take with food ibuprofen 2021-0 Yes [id number] 800mg Take 1 U nivers 800 mg 4-20 tablet by ity of tablet 00:00: mouth [place] 00 every 8 Medical (eight) Branch hours as needed for Pain (scale 4-6). Take with food ibuprofen 2021-0 Yes [id number] 800mg Take 1 U nivers 800 mg 4-20 tablet by ity of tablet 00:00: mouth [place] 00 every 8 Medical (eight) Branch hours as needed for Pain (scale 4-6). Take with food ibuprofen 2021-0 Yes [id number] 800mg Take 1 U nivers 800 mg 4-20 tablet by ity of tablet 00:00: mouth [place] 00 every 8 Medical (eight) Branch hours as needed for Pain (scale 4-6). Take with food ibuprofen 2021-0 Yes [id number] 800mg Take 1 U nivers 800 mg 4-20 tablet by ity of tablet 00:00: mouth [place] 00 every 8 Medical (eight) Branch hours as needed for Pain (scale 4-6). Take with food ibuprofen 2021-0 Yes [id number] 800mg Take 1 U nivers 800 mg 4-20 tablet by ity of tablet 00:00: mouth [place] 00 every 8 Medical (eight) Branch hours as needed for Pain (scale 4-6). Take with food ibuprofen 2021-0 Yes [id number] 800mg Take 1 U nivers 800 mg 4-20 tablet by ity of tablet 00:00: mouth [place] 00 every 8 Medical (eight) Branch hours as needed for Pain (scale 4-6). Take with food ibuprofen 2021-0 Yes [id number] 800mg Take 1 U nivers 800 mg 4-20 tablet by ity of tablet 00:00: mouth [place] 00 every 8 Medical (eight) Branch hours as needed for Pain (scale 4-6). Take with food ibuprofen 2021-0 Yes [id number] 800mg Take 1 U nivers 800 mg 4-20 tablet by ity of tablet 00:00: mouth [place] 00 every 8 Medical (eight) Branch hours as needed for Pain (scale 4-6). Take with food ibuprofen 2021-0 Yes [id number] 800mg Take 1 U nivers 800 mg 4-20 tablet by ity of tablet 00:00: mouth [place] 00 every 8 Medical (eight) Branch hours as needed for Pain (scale 4-6). Take with food ibuprofen 2021-0 Yes [id number] 800mg Take 1 U nivers 800 mg 4-20 tablet by ity of tablet 00:00: mouth [place] 00 every 8 Medical (eight) Branch hours as needed for Pain (scale 4-6). Take with food ibuprofen 2020-0 Yes [id number] 800mg Take 1 U nivers 800 mg 4-20 tablet by ity of tablet 00:00: mouth [place] 00 every 8 Medical (eight) Branch hours as needed for Pain (scale 4-6). Take with food ibuprofen 2020-0 Yes [id number] 800mg Take 1 U nivers 800 mg 4-20 tablet by ity of tablet 00:00: mouth [place] 00 every 8 Medical (eight) Branch hours as needed for Pain (scale 4-6). Take with food ibuprofen 2020-0 Yes [id number] 800mg Take 1 U nivers 800 mg 4-20 tablet by ity of tablet 00:00: mouth [place] 00 every 8 Medical (eight) Branch hours as needed for Pain (scale 4-6). Take with food ibuprofen 2020-0 Yes [id number] 800mg Take 1 U nivers 800 mg 4-20 tablet by ity of tablet 00:00: mouth [place] 00 every 8 Medical (eight) Branch hours as needed for Pain (scale 4-6). Take with food ibuprofen 2020-0 Yes [id number] 800mg Take 1 U nivers 800 mg 4-20 tablet by ity of tablet 00:00: mouth [place] 00 every 8 Medical (eight) Branch hours as needed for Pain (scale 4-6). Take with food ibuprofen 2021-0 Yes [id number] 800mg Take 1 U nivers 800 mg 4-20 tablet by ity of tablet 00:00: mouth [place] 00 every 8 Medical (eight) Branch hours as needed for Pain (scale 4-6). Take with food ibuprofen 2021-0 Yes [id number] 800mg Take 1 U nivers 800 mg 4-20 tablet by ity of tablet 00:00: mouth [place] 00 every 8 Medical (eight) Branch hours as needed for Pain (scale 4-6). Take with food ibuprofen 2021-0 Yes [id number] 800mg Take 1 U nivers 800 mg 4-20 tablet by ity of tablet 00:00: mouth [place] 00 every 8 Medical (eight) Branch hours as needed for Pain (scale 4-6). Take with food ibuprofen 2020-0 Yes [id number] 800mg Take 1 U nivers 800 mg 4-20 tablet by ity of tablet 00:00: mouth [place] 00 every 8 Medical (eight) Branch hours as needed for Pain (scale 4-6). Take with food ibuprofen 2020-0 Yes [id number] 800mg Take 1 U nivers 800 mg 4-20 tablet by ity of tablet 00:00: mouth [place] 00 every 8 Medical (eight) Branch hours as needed for Pain (scale 4-6). Take with food ibuprofen 2020-0 Yes [id number] 800mg Take 1 U nivers 800 mg 4-20 tablet by ity of tablet 00:00: mouth [place] 00 every 8 Medical (eight) Branch hours as needed for Pain (scale 4-6). Take with food ibuprofen 2020-0 Yes [id number] 800mg Take 1 U nivers 800 mg 4-20 tablet by ity of tablet 00:00: mouth [place] 00 every 8 Medical (eight) Branch hours as needed for Pain (scale 4-6). Take with food ibuprofen 2020-0 Yes [id number] 800mg Take 1 U nivers 800 mg [...] tablet by ity of tablet 00:00: mouth ([facility]) Medical times Branch daily with meals. [...] Branch daily with meals. cloNIDine 2019-0 Yes [id number] .1mg Take 1 Un dani 0.1 mg 7-24 tablet by ity of tablet 00:00: mouth (two) Medical times Branch daily. cloNIDine 2019-0 Yes [id number] .1mg Take 1 Un dani 0.1 mg 7-24 tablet by ity of tablet 00:00: mouth (two) Medical times Branch daily. cloNIDine 2019-0 Yes [id number] .1mg Take 1 Un dani 0.1 mg 7-24 tablet by ity of tablet 00:00: mouth (two) Medical times Branch daily. cloNIDine 2019-0 Yes [id number] .1mg Take 1 Un dani 0.1 mg 7-24 tablet by ity of tablet 00:00: mouth (two) Medical times Branch daily. cloNIDine 2019-0 Yes [id number] .1mg Take 1 Un dani 0.1 mg 7-24 tablet by ity of tablet 00:00: mouth (two) Medical times Branch daily. cloNIDine 2019-0 Yes [id number] .1mg Take 1 Un dani 0.1 mg 7-24 tablet by ity of tablet 00:00: mouth (two) Medical times Branch daily. cloNIDine 2019-0 Yes [id number] .1mg Take 1 Un dani 0.1 mg 7-24 tablet by ity of tablet 00:00: mouth (two) Medical times Branch daily. cloNIDine 2019-0 Yes [id number] .1mg Take 1 Un dani 0.1 mg 7-24 tablet by ity of tablet 00:00: mouth 2 (two) Medical times Branch daily. cloNIDine 2019-0 Yes [id number] .1mg Take 1 Un dani 0.1 mg 7-24 tablet by ity of tablet 00:00: mouth (two) Medical times Branch daily. cloNIDine 2019-0 Yes [id number] .1mg Take 1 Un dani 0.1 mg 7-24 tablet by ity of tablet 00:00: mouth (two) Medical times Branch daily. cloNIDine 2019-0 Yes [id number] .1mg Take 1 Un dani 0.1 mg 7-24 tablet by ity of tablet 00:00: mouth (two) Medical times Branch daily. cloNIDine 2019-0 Yes [id number] .1mg Take 1 Un dani 0.1 mg 7-24 tablet by ity of tablet 00:00: mouth (two) Medical times Branch daily. cloNIDine 2019-0 Yes [id number] .1mg Take 1 Un dani 0.1 mg 7-24 tablet by ity of tablet 00:00: mouth (two) Medical times Branch daily. cloNIDine 2019-0 Yes [id number] .1mg Take 1 Un dani 0.1 mg 7-24 tablet by ity of tablet 00:00: mouth (two) Medical times Branch daily. cloNIDine 2019-0 Yes [id number] .1mg Take 1 Un dani 0.1 mg 7-24 tablet by ity of tablet 00:00: mouth (two) Medical times Branch daily. cloNIDine 2019-0 Yes [id number] .1mg Take 1 Un dani 0.1 mg 7-24 tablet by ity of tablet 00:00: mouth 2 (two) Medical times Branch daily. cloNIDine 2019-0 Yes [id number] .1mg Take 1 Un dani 0.1 mg 7-24 tablet by ity of tablet 00:00: mouth 2 (two) Medical times Branch daily. cloNIDine 2019-0 Yes [id number] .1mg Take 1 Un dani 0.1 mg 7-24 tablet by ity of tablet 00:00: mouth (two) Medical times Branch daily. cloNIDine 2019-0 Yes [id number] .1mg Take 1 Un dani 0.1 mg 7-24 tablet by ity of tablet 00:00: mouth (two) Medical times Branch daily. cloNIDine 2019-0 Yes [id number] .1mg Take 1 Un dani 0.1 mg 7-24 tablet by ity of tablet 00:00: mouth (two) Medical times Branch daily. cloNIDine 2019-0 Yes [id number] .1mg Take 1 Un dani 0.1 mg 7-24 tablet by ity of tablet 00:00: mouth (two) Medical times Branch daily. cloNIDine 2019-0 Yes [id number] .1mg Take 1 Un dani 0.1 mg 7-24 tablet by ity of tablet 00:00: mouth (two) Medical times Branch daily. cloNIDine 2019-0 Yes [id number] .1mg Take 1 Un dani 0.1 mg 7-24 tablet by ity of tablet 00:00: mouth (two) Medical times Branch daily. cloNIDine 2019-0 Yes [id number] .1mg Take 1 Un dani 0.1 mg 7-24 tablet by ity of tablet 00:00: mouth (two) Medical times Branch daily. cloNIDine 2019-0 Yes [id number] .1mg Take 1 Un dani 0.1 mg 7-24 tablet by ity of tablet 00:00: mouth (two) Medical times Branch daily. cloNIDine 2019-0 Yes [id number] .1mg Take 1 Un dani 0.1 mg 7-24 tablet by ity of tablet 00:00: mouth (two) Medical times Branch daily. cloNIDine 2019-0 Yes [id number] .1mg Take 1 Un dani 0.1 mg 7-24 tablet by ity of tablet 00:00: mouth 2 (two) Medical times Branch daily. cloNIDine 2019-0 Yes [id number] .1mg Take 1 Un dani 0.1 mg 7-24 tablet by ity of tablet 00:00: mouth 2 (two) Medical times Branch daily. cloNIDine 2019-0 Yes [id number] .1mg Take 1 Un dani 0.1 mg 7-24 tablet by ity of tablet 00:00: mouth (two) Medical times Branch daily. cloNIDine 2019-0 Yes [id number] .1mg Take 1 Un dani 0.1 mg 7-24 tablet by ity of tablet 00:00: mouth 2 (two) Medical times Branch daily. cloNIDine 2019-0 Yes [id number] .1mg Take 1 Un dani 0.1 mg 7-24 tablet by ity of tablet 00:00: mouth (two) Medical times Branch daily. cloNIDine 2019-0 Yes [id number] .1mg Take 1 Un dani 0.1 mg 7-24 tablet by ity of tablet 00:00: mouth (two) Medical times Branch daily. cloNIDine 2019-0 Yes [id number] .1mg Take 1 Un dani 0.1 mg 7-24 tablet by ity of tablet 00:00: mouth (two) Medical times Branch daily. cloNIDine 2019-0 Yes [id number] .1mg Take 1 Un dani 0.1 mg 7-24 tablet by ity of tablet 00:00: mouth (two) Medical times Branch daily. cloNIDine 2019-0 Yes [id number] .1mg Take 1 Un [place]ani 0.1 mg 7-24 tablet by ity of tablet 00:00: mouth (two) Medical times Branch daily. cloNIDine 2019-0 Yes [id number] .1mg Take 1 Un [place] 0.1 mg 7-24 tablet by ity of tablet 00:00: mouth (two) Medical times Branch daily. cloNIDine 2019-0 Yes [id number] .1mg Take 1 Un [place]ani 0.1 mg 7-24 tablet by ity of tablet 00:00: mouth (two) Medical times Branch daily. cloNIDine 2019-0 Yes [id number] .1mg Take 1 Un dani 0.1 mg 7-24 tablet by ity of tablet 00:00: mouth (two) Medical times Branch daily. cloNIDine 2019-0 Yes [id number] .1mg Take 1 Un dani 0.1 mg 7-24 tablet by ity of tablet 00:00: mouth 2 (two) Medical times Branch daily. acetaminoph 2019-0 Yes [id number] 1{tbl} Take 1 Univers en-codeine 1-16 tablet by ity of (TYLENOL-CO 00:00: mouth [place] DEINE #3) 00 every 4 Medical 300-30 mg (four) Branch tablet hours as needed for Pain (scale 7-10). amoxicillin Yes [id number] 500mg Take 1 Univers 500 mg 1-16 capsule by ity of capsule 00:00: mouth 3 [place] 00 (three) Medical times Branch daily. acetaminoph Yes [id number] 1{tbl} Take 1 Univers en-codeine 1-16 tablet by ity of (TYLENOL-CO 00:00: mouth [place] DEINE #3) 00 every 4 Medical 300-30 mg (four) Branch tablet hours as needed for Pain (scale 7-10). amoxicillin Yes [id number] 500mg Take 1 Univers 500 mg 1-16 capsule by ity of capsule 00:00: mouth 3 [place] 00 (three) Medical times Branch daily. acetaminoph Yes [id number] 1{tbl} Take 1 Univers en-codeine 1-16 tablet by ity of (TYLENOL-CO 00:00: mouth [place] DEINE #3) 00 every 4 Medical 300-30 mg (four) Branch tablet hours as needed for Pain (scale 7-10). amoxicillin Yes [id number] 500mg Take 1 Univers 500 mg 1-16 capsule by ity of capsule 00:00: mouth 3 [place] 00 (three) Medical times Branch daily. acetaminoph Yes [id number] 1{tbl} Take 1 Univers en-codeine 1-16 tablet by ity of (TYLENOL-CO 00:00: mouth [place] DEINE #3) 00 every 4 Medical 300-30 mg (four) Branch tablet hours as needed for Pain (scale 7-10). amoxicillin Yes [id number] 500mg Take 1 Univers 500 mg 1-16 capsule by ity of capsule 00:00: mouth 3 [place] 00 (three) Medical times Branch daily. acetaminoph Yes [id number] 1{tbl} Take 1 Univers en-codeine 1-16 tablet by ity of (TYLENOL-CO 00:00: mouth [place] DEINE #3) 00 every 4 Medical 300-30 mg (four) Branch tablet hours as needed for Pain (scale 7-10). amoxicillin 2019-0 Yes [id number] 500mg Take 1 Univers 500 mg 1-16 capsule by ity of capsule 00:00: mouth 3 [place] 00 (three) Medical times Branch daily. acetaminoph 2019-0 Yes [id number] 1{tbl} Take 1 Univers en-codeine 1-16 tablet by ity of (TYLENOL-CO 00:00: mouth [place] DEINE #3) 00 every 4 Medical 300-30 mg (four) Branch tablet hours as needed for Pain (scale 7-10). amoxicillin 2018-0 Yes [id number] 500mg Take 1 Univers 500 mg 1-16 capsule by ity of capsule 00:00: mouth 3 [place] 00 (three) Medical times Branch daily. acetaminoph 0 Yes [id number] 1{tbl} Take 1 Univers en-codeine 1-16 tablet by ity of (TYLENOL-CO 00:00: mouth [place] DEINE #3) 00 every 4 Medical 300-30 mg (four) Branch tablet hours as needed for Pain (scale 7-10). amoxicillin 0 Yes [id number] 500mg Take 1 Univers 500 mg 1-16 capsule by ity of capsule 00:00: mouth 3 [place] 00 (three) Medical times Branch daily. acetaminoph 0 Yes [id number] 1{tbl} Take 1 Univers en-codeine 1-16 tablet by ity of (TYLENOL-CO 00:00: mouth [place] DEINE #3) 00 every 4 Medical 300-30 mg (four) Branch tablet hours as needed for Pain (scale 7-10). amoxicillin 2018-0 Yes [id number] 500mg Take 1 Univers 500 mg 1-16 capsule by ity of capsule 00:00: mouth 3 [place] 00 (three) Medical times Branch daily. acetaminoph 2019-0 Yes [id number] 1{tbl} Take 1 Univers en-codeine 1-16 tablet by ity of (TYLENOL-CO 00:00: mouth [place] DEINE #3) 00 every 4 Medical 300-30 mg (four) Branch tablet hours as needed for Pain (scale 7-10). amoxicillin 2019-0 Yes [id number] 500mg Take 1 Univers 500 mg 1-16 capsule by ity of capsule 00:00: mouth 3 [place] 00 (three) Medical times Branch daily. acetaminoph 20190 Yes [id number] 1{tbl} Take 1 Univers en-codeine 1-16 tablet by ity of (TYLENOL-CO 00:00: mouth [place] DEINE #3) 00 every 4 Medical 300-30 mg (four) Branch tablet hours as needed for Pain (scale 7-10). amoxicillin Yes [id number] 500mg Take 1 Univers 500 mg 1-16 capsule by ity of capsule 00:00: mouth 3 [place] 00 (three) Medical times Branch daily. acetaminoph Yes [id number] 1{tbl} Take 1 Univers en-codeine 1-16 tablet by ity of (TYLENOL-CO 00:00: mouth [place] DEINE #3) 00 every 4 Medical 300-30 mg (four) Branch tablet hours as needed for Pain (scale 7-10). amoxicillin Yes [id number] 500mg Take 1 Univers 500 mg 1-16 capsule by ity of capsule 00:00: mouth 3 [place] 00 (three) Medical times Branch daily. acetaminoph Yes [id number] 1{tbl} Take 1 Univers en-codeine 1-16 tablet by ity of (TYLENOL-CO 00:00: mouth [place] DEINE #3) 00 every 4 Medical 300-30 mg (four) Branch tablet hours as needed for Pain (scale 7-10). amoxicillin Yes [id number] 500mg Take 1 Univers 500 mg 1-16 capsule by ity of capsule 00:00: mouth 3 [place] 00 (three) Medical times Branch daily. acetaminoph Yes [id number] 1{tbl} Take 1 Univers en-codeine 1-16 tablet by ity of (TYLENOL-CO 00:00: mouth [place] DEINE #3) 00 every 4 Medical 300-30 mg (four) Branch tablet hours as needed for Pain (scale 7-10). amoxicillin Yes [id number] 500mg Take 1 Univers 500 mg 1-16 capsule by ity of capsule 00:00: mouth 3 [place] 00 (three) Medical times Branch daily. acetaminoph Yes [id number] 1{tbl} Take 1 Univers en-codeine 1-16 tablet by ity of (TYLENOL-CO 00:00: mouth [place] DEINE #3) 00 every 4 Medical 300-30 mg (four) Branch tablet hours as needed for Pain (scale 7-10). amoxicillin Yes [id number] 500mg Take 1 Univers 500 mg 1-16 capsule by ity of capsule 00:00: mouth 3 [place] 00 (three) Medical times Branch daily. acetaminoph Yes [id number] 1{tbl} Take 1 Univers en-codeine 1-16 tablet by ity of (TYLENOL-CO 00:00: mouth [place] DEINE #3) 00 every 4 Medical 300-30 mg (four) Branch tablet hours as needed for Pain (scale 7-10). amoxicillin Yes [id number] 500mg Take 1 Univers 500 mg 1-16 capsule by ity of capsule 00:00: mouth 3 [place] 00 (three) Medical times Branch daily. acetaminoph Yes [id number] 1{tbl} Take 1 Univers en-codeine 1-16 tablet by ity of (TYLENOL-CO 00:00: mouth [place] DEINE #3) 00 every 4 Medical 300-30 mg (four) Branch tablet hours as needed for Pain (scale 7-10). amoxicillin Yes [id number] 500mg Take 1 Univers 500 mg 1-16 capsule by ity of capsule 00:00: mouth 3 [place] 00 (three) Medical times Branch daily. acetaminoph 2020- No [id number] 1{tbl} Take 1 Univers en-codeine 1-16 04-28 tablet by ity of (TYLENOL-CO 00:00: 00:00 [place] DEINE #3) 00 :00 every 4 Medical 300-30 mg (four) Branch tablet hours as needed for Pain (scale 7-10). amoxicillin 2020- No [id number] 500mg Take 1 Univers 500 mg 1-16 04-28 capsule by ity of capsule 00:00: 00:00 mouth 3 [place] 00 :00 (three) Medical times Branch daily. acetaminoph 2020- No [id number] 1{tbl} Take 1 Univers en-codeine 1-16 04-28 tablet by ity of (TYLENOL-CO 00:00: 00:00 [place] DEINE #3) 00 :00 every 4 Medical 300-30 mg (four) Branch tablet hours as needed for Pain (scale 7-10). amoxicillin 2018- 2021- No [id number] 500mg Take 1 Univers 500 mg 10-17- [...] 00 bedtime. Medical Branch SERTraline 2017-0 Yes [id number] 50mg Take 1 U nivers 50 mg 9-03 tablet by ity of tablet 00:00: mouth [place] 00 daily. [facility] Branch atorvastati 2017-0 Yes 20mg Take 1 Univ ers n 20 mg 9-03 tablet by ity of tablet 00:00: mouth at [place] 00 bedtime. [facility] Branch SERTraline 2017-0 Yes [id number] 50mg Take 1 U nivers 50 mg 9-03 tablet by ity of tablet 00:00: mouth [place] 00 daily. [facility] Branch atorvastati 2017-0 Yes 20mg Take 1 Univ ers n 20 mg 9-03 tablet by ity of tablet 00:00: mouth at [place] 00 bedtime. [facility] Branch SERTraline 2017-0 Yes [id number] 50mg Take 1 U nivers 50 mg 9-03 tablet by ity of tablet 00:00: mouth [place] 00 daily. [facility] Branch atorvastati 2017-0 Yes 20mg Take 1 Univ ers n 20 mg 9-03 tablet by ity of tablet 00:00: mouth at [place] 00 bedtime. [facility] Branch SERTraline 2017-0 Yes [id number] 50mg Take 1 U nivers 50 mg 9-03 tablet by ity of tablet 00:00: mouth [place] 00 daily. [facility] Branch atorvastati 2017-0 Yes 20mg Take 1 Univ ers n 20 mg 9-03 tablet by ity of tablet 00:00: mouth at [place] 00 bedtime. [facility] Branch SERTraline 2017-0 Yes [id number] 50mg Take 1 U nivers 50 mg 9-03 tablet by ity of tablet 00:00: mouth [place] 00 daily. [facility] Branch atorvastati 2018-0 Yes 20mg Take 1 Univ ers n 20 mg 9-03 tablet by ity of tablet 00:00: mouth at [place] 00 bedtime. [facility] SERTraline 2018-0 Yes [id number] 50mg Take 1 U nivers 50 mg 9-03 tablet by ity of tablet 00:00: mouth [place] 00 daily. [facility] Branch atorvastati 2017-0 Yes 20mg Take 1 Univ ers n 20 mg 9-03 tablet by ity of tablet 00:00: mouth at [place] 00 bedtime. [facility] Branch SERTraline 2017-0 Yes [id number] 50mg Take 1 U nivers 50 mg 9-03 tablet by ity of tablet 00:00: mouth [place] 00 daily. [facility] Branch atorvastati 2017-0 Yes 20mg Take 1 Univ ers n 20 mg 9-03 tablet by ity of tablet 00:00: mouth at [place] 00 bedtime. [facility] SERTraline 2017-0 Yes [id number] 50mg Take 1 U nivers 50 mg 9-03 tablet by ity of tablet 00:00: mouth [place] 00 daily. [facility] Branch atorvastati 0 Yes 20mg Take 1 Univ ers n 20 mg 9-03 tablet by ity of tablet 00:00: mouth at [place] bedtime. [facility] Branch SERTraline 0 Yes [id number] 50mg Take 1 U nivers 50 mg 9-03 tablet by ity of tablet 00:00: mouth 00 daily. [facility] Branch atorvastati 2017-0 Yes 20mg Take 1 Univ ers n 20 mg 9-03 tablet by ity of tablet 00:00: mouth at [place] bedtime. [facility] SERTraline 0 Yes [id number] 50mg Take 1 U nivers 50 mg 9-03 tablet by ity of tablet 00:00: mouth [place] 00 daily. [facility] atorvastati 0 Yes 20mg Take 1 Univ ers n 20 mg 9-03 tablet by ity of tablet 00:00: mouth at [place] bedtime. [facility] SERTraline 2017-0 Yes [id number] 50mg Take 1 U nivers 50 mg 9-03 tablet by ity of tablet 00:00: mouth [place] 00 daily. [facility] Branch atorvastati 2017-0 Yes 20mg Take 1 Univ ers n 20 mg 9-03 tablet by ity of tablet 00:00: mouth at [place] bedtime. [facility] Branch SERTraline 2017-0 Yes [id number] 50mg Take 1 U nivers 50 mg 9-03 tablet by ity of tablet 00:00: mouth [place] 00 daily. [facility] Branch atorvastati 2017-0 Yes 20mg Take 1 Univ ers n 20 mg 9-03 tablet by ity of tablet 00:00: mouth at [place] 00 bedtime. [facility] Branch SERTraline 2018-0 Yes [id number] 50mg Take 1 U nivers 50 mg 9-03 tablet by ity of tablet 00:00: mouth [place] 00 daily. [facility] Branch atorvastati 2017-0 Yes 20mg Take 1 Univ ers n 20 mg 9-03 tablet by ity of tablet 00:00: mouth at [place] 00 bedtime. [facility] SERTraline 2017-0 Yes [id number] 50mg Take 1 U nivers 50 mg 9-03 tablet by ity of tablet 00:00: mouth [place] 00 daily. [facility] atorvastati 2017-0 Yes 20mg Take 1 Univ ers n 20 mg 9-03 tablet by ity of tablet 00:00: mouth at [place] 00 bedtime. [facility] SERTraline 2017-0 Yes [id number] 50mg Take 1 U nivers 50 mg 9-03 tablet by ity of tablet 00:00: mouth [place] 00 daily. [facility] atorvastati 2017-0 Yes 20mg Take 1 Univ ers n 20 mg 9-03 tablet by ity of tablet 00:00: mouth at [place] 00 bedtime. [facility] SERTraline 2017-0 Yes [id number] 50mg Take 1 U nivers 50 mg 9-03 tablet by ity of tablet 00:00: mouth [place] 00 daily. [facility] atorvastati 0 Yes 20mg Take 1 Univ ers n 20 mg 9-03 tablet by ity of tablet 00:00: mouth at [place] 00 bedtime. [facility] SERTraline 2017-0 Yes [id number] 50mg Take 1 U nivers 50 mg 9-03 tablet by ity of tablet 00:00: mouth [place] 00 daily. [facility] atorvastati 2017-0 Yes 20mg Take 1 Univ ers n 20 mg 9-03 tablet by ity of tablet 00:00: mouth at [place] 00 bedtime. [facility] SERTraline 2017-0 Yes [id number] 50mg Take 1 U nivers 50 mg 9-03 tablet by ity of tablet 00:00: mouth [place] 00 daily. [facility] atorvastati 2017-0 Yes 20mg Take 1 Univ ers n 20 mg 9-03 tablet by ity of tablet 00:00: mouth at [place] 00 bedtime. [facility] SERTraline 2017-0 Yes [id number] 50mg Take 1 U nivers 50 mg 9-03 tablet by ity of tablet 00:00: mouth [place] 00 daily. [facility] atorvastati 2018-0 Yes 20mg Take 1 Univ ers n 20 mg 9-03 tablet by ity of tablet 00:00: mouth at [place] bedtime. [facility] SERTraline 2018-0 Yes [id number] 50mg Take 1 U nivers 50 mg 9-03 tablet by ity of tablet 00:00: mouth 00 daily. [facility] atorvastati 2017-0 Yes 20mg Take 1 Univ ers n 20 mg 9-03 tablet by ity of tablet 00:00: mouth at [place] bedtime. [facility] SERTraline 2017-0 Yes [id number] 50mg Take 1 U nivers 50 mg 9-03 tablet by ity of tablet 00:00: mouth 00 daily. [facility] atorvastati 2017-0 Yes 20mg Take 1 Univ ers n 20 mg 9-03 tablet by ity of tablet 00:00: mouth at [place] bedtime. [facility] SERTraline 2017-0 Yes [id number] 50mg Take 1 U nivers 50 mg 9-03 tablet by ity of tablet 00:00: mouth 00 daily. [facility] atorvastati 2017-0 Yes 20mg Take 1 Univ ers n 20 mg 9-03 tablet by ity of tablet 00:00: mouth at [place] bedtime. [facility] SERTraline 2017-0 Yes [id number] 50mg Take 1 U nivers 50 mg 9-03 tablet by ity of tablet 00:00: mouth 00 daily. [facility] atorvastati 2017-0 Yes 20mg Take 1 Univ ers n 20 mg 9-03 tablet by ity of tablet 00:00: mouth at [place] bedtime. [facility] SERTraline 2018-0 Yes [id number] 50mg Take 1 U nivers 50 mg 9-03 tablet by ity of tablet 00:00: mouth 00 daily. [facility] atorvastati 2017-0 Yes 20mg Take 1 Univ ers n 20 mg 9-03 tablet by ity of tablet 00:00: mouth at [place] bedtime. [facility] SERTraline 2018-0 Yes [id number] 50mg Take 1 U nivers 50 mg 9-03 tablet by ity of tablet 00:00: mouth 00 daily. [facility] Branch atorvastati 2017-0 Yes 20mg Take 1 Univ ers n 20 mg 9-03 tablet by ity of tablet 00:00: mouth at [place] 00 bedtime. [facility] SERTraline 2018-0 Yes [id number] 50mg Take 1 U nivers 50 mg 9-03 tablet by ity of tablet 00:00: mouth [place] 00 daily. [facility] atorvastati 2018-0 Yes 20mg Take 1 Univ ers n 20 mg 9-03 tablet by ity of tablet 00:00: mouth at [place] 00 bedtime. [facility] Branch SERTraline 2018-0 Yes [id number] 50mg Take 1 U nivers 50 mg 9-03 tablet by ity of tablet 00:00: mouth [place] 00 daily. [facility] Branch atorvastati 2017-0 Yes 20mg Take 1 Univ ers n 20 mg 9-03 tablet by ity of tablet 00:00: mouth at [place] bedtime. [facility] Branch SERTraline 2017-0 Yes [id number] 50mg Take 1 U nivers 50 mg 9-03 tablet by ity of tablet 00:00: mouth [place] 00 daily. [facility] Branch atorvastati 2017-0 Yes 20mg Take 1 Univ ers n 20 mg 9-03 tablet by ity of tablet 00:00: mouth at [place] bedtime. [facility] Branch SERTraline 2017-0 Yes [id number] 50mg Take 1 U nivers 50 mg 9-03 tablet by ity of tablet 00:00: mouth [place] 00 daily. [facility] Branch atorvastati 2017-0 Yes 20mg Take 1 Univ ers n 20 mg 9-03 tablet by ity of tablet 00:00: mouth at [place] bedtime. Medical Branch SERTraline 2017-0 Yes [id number] 50mg Take 1 U nivers 50 mg 9-03 tablet by ity of tablet 00:00: mouth [place] 00 daily. [facility] Branch atorvastati 2018-0 Yes 20mg Take 1 Univ ers n 20 mg 9-03 tablet by ity of tablet 00:00: mouth at [place] bedtime. [facility] Branch SERTraline 2018-0 Yes [id number] 50mg Take 1 U nivers 50 mg 9-03 tablet by ity of tablet 00:00: mouth [place] 00 daily. [facility] Branch atorvastati 2017-0 Yes 20mg Take 1 Univ ers n 20 mg 9-03 tablet by ity of tablet 00:00: mouth at [place] 00 bedtime. [facility] Branch SERTraline 2017-0 Yes [id number] 50mg Take 1 U nivers 50 mg 9-03 tablet by ity of tablet 00:00: mouth [place] 00 daily. [facility] Branch atorvastati 2018-0 Yes 20mg Take 1 Univ ers n 20 mg 9-03 tablet by ity of tablet 00:00: mouth at [place] 00 bedtime. [facility] Branch SERTraline 2018-0 Yes [id number] 50mg Take 1 U nivers 50 mg 9-03 tablet by ity of tablet 00:00: mouth [place] 00 daily. [facility] Branch atorvastati 2017-0 Yes 20mg Take 1 Univ ers n 20 mg 9-03 tablet by ity of tablet 00:00: mouth at [place] 00 bedtime. Medical Branch SERTraline 2017-0 Yes [id number] 50mg Take 1 U nivers 50 mg 9-03 tablet by ity of tablet 00:00: mouth [place] 00 daily. [facility] Branch atorvastati 2017-0 Yes 20mg Take 1 Univ ers n 20 mg 9-03 tablet by ity of tablet 00:00: mouth at [place] 00 bedtime. Medical Branch SERTraline 2017-0 Yes [id number] 50mg Take 1 U nivers 50 mg 9-03 tablet by ity of tablet 00:00: mouth [place] 00 daily. Medical Branch atorvastati 0 Yes 20mg Take 1 Univ ers n 20 mg 9-03 tablet by ity of tablet 00:00: mouth at [place] 00 bedtime. Medical Branch SERTraline 2017-0 Yes [id number] 50mg Take 1 U nivers 50 mg 9-03 tablet by ity of tablet 00:00: mouth [place] 00 daily. Medical Branch atorvastati 2017-0 Yes 20mg Take 1 Univ ers n 20 mg 9-03 tablet by ity of tablet 00:00: mouth at [place] 00 bedtime. Medical Branch SERTraline 2017-0 Yes [id number] 50mg Take 1 U nivers 50 mg 9-03 tablet by ity of tablet 00:00: mouth [place] 00 daily. Medical Branch atorvastati 2018-0 Yes 20mg Take 1 Univ ers n 20 mg 9-03 tablet by ity of tablet 00:00: mouth at [place] 00 bedtime. Medical Branch SERTraline 2018-0 Yes [id number] 50mg Take 1 U nivers 50 mg 9-03 tablet by ity of tablet 00:00: mouth [place] 00 daily. Medical Branch atorvastati 2017-0 Yes 20mg Take 1 Univ ers n 20 mg 9-03 tablet by ity of tablet 00:00: mouth at [place] 00 bedtime. Medical Branch SERTraline 2017- Yes [id number] 50mg Take 1 U nivers 50 mg [...] Immunizations Ordered Filled Immunization Date Status Comments [facility] e Immunization Name Name SARS-COV-2 COVID-19 2021-04-19 Completed Unive rsity [facility]2 COVID-19 2021-04-19 Completed Unive rsity [facility]ACC[facility] SARS-COV-2 COVID-19 2021-04-19 Completed Unive rsity of MODERNA VACCINE 00:00:00 [facility] SARS-COV-2 COVID-19 2021-04-19 Completed Unive rsity of MODERNA VACCINE 00:00:00 [facility] SARS-COV-2 COVID-19 2021-04-19 Completed Unive rsity of MODERNA VACCINE 00:00:00 [facility] SARS-COV-2 COVID-19 2021-04-19 Completed Unive rsity of MODERNA VACCINE 00:00:00 [facility] SARS-COV-2 COVID-19 2021-03-20 Completed Unive rsity of MODERNA VACCINE 00:00:00 [facility] Branch SARS-COV-2 COVID-19 2021-03-20 Completed Unive rsity of MODERNA VACCINE 00:00:00 [facility] SARS-COV-2 COVID-19 2021-03-20 Completed Unive rsity of MODERNA VACCINE 00:00:00 [facility] SARS-COV-2 COVID-19 2021-03-20 Completed Unive rsity of MODERNA VACCINE 00:00:00 [facility] Branch SARS-COV-2 COVID-19 2021-03-20 Completed Unive rsity of MODERNA VACCINE 00:00:00 [facility] SARS-COV-2 COVID-19 2021-03-20 Completed Unive rsity of MODERNA VACCINE 00:00:00 [facility] H1n1 Vaccine 2009-07-16 Completed University o f 00:00:00 [facility] H1n1 Vaccine 2009-07-16 Completed University o f 00:00:00 [facility] H1n1 Vaccine 2009-07-16 Completed University o f 00:00:00 [facility] H1n1 Vaccine 2009-07-16 Completed University o f 00:00:00 [place] [facility] H1n1 Vaccine 2009-07-16 Completed University o f 00:00:00 [place] [facility] H1n1 Vaccine 2009-07-16 Completed University o f 00:00:00 [facility] Vital Signs Vital Name Observation Time Observation Value Comments Source Systolic blood 2021-10-31 18:32:00 151 mm[Hg] Univer sity of pressure [place] [facility] Diastolic blood 2021-10-31 18:32:00 109 mm[Hg] Unive rsity of pressure [place] [facility] Heart rate 2021-10-31 18:32:00 92 /min [facility]i ty [facility] [place] [facility] Body temperature 2021-10-31 18:32:00 36.89 Cindi Univ ersity of [place] [facility] Respiratory rate 2021-10-31 18:32:00 16 /min Univ ersity of [place] [facility] Body height 2021-10-31 18:32:00 162.6 cm [facility] [place] [facility] Body weight 2021-10-31 18:32:00 99.791 kg [facility] [place] [facility] BMI 2021-10-31 18:32:00 37.76 kg/m2 [facility] [place] [facility] Oxygen saturation in 2021-10-31 18:32:00 100 /min University of Arterial blood by [facility] Pulse oximetry Branch Systolic blood 2021-06-19 00:30:00 135 mm[Hg] Univer sity of pressure [place] [facility] Diastolic blood 2021-06-19 00:30:00 95 mm[Hg] Unive rsity of pressure [place] [facility] Heart rate 2021-06-19 00:30:00 73 /min [facility]i ty [facility] [place] [facility] Respiratory rate 2021-06-19 00:30:00 16 /min Univ ersity of [place] [facility] Oxygen saturation in 2021-06-19 00:30:00 100 /min University of Arterial blood by [facility] Pulse oximetry Branch Body temperature 2021-06-19 00:00:00 37.17 Cindi Univ ersity of [place] [facility] Body height 2021-06-18 19:35:00 162.6 cm [facility]i ty [facility] [place] [facility] Body weight 2021-06-18 19:35:00 106.142 [...] 2021-02-24 19:05:00 81 /min Universi ty of [facility] Body temperature 2021-02-24 19:04:00 36.78 Cindi [facility] of [facility] Branch Respiratory rate 2021-02-24 19:04:00 18 /min [...] 2021-02-22 10:00:00 13 /min Univ ersity of [facility] Oxygen saturation in 2021-02-22 10:00:00 98 /min [facility] Arterial blood by [facility] Pulse oximetry Branch Body temperature 2021-02-22 04:21:04 37.28 Cindi Univ ersity of [facility] Body height 2021-02-22 02:24:00 162.6 cm [facility]i ty of [place] [facility] [place] Body weight 2021-02-22 02:24:00 104.327 kg [facility]i ty [facility] [place] [facility] [place] BMI 2021-02-22 02:24:00 39.48 kg/m2 Universi ty of [facility] Systolic blood 2021-01-27 20:31:00 145 mm[Hg] Univer sity of pressure [place] [facility] Diastolic blood 2021-01-27 20:31:00 91 mm[Hg] Unive rsity of pressure [facility] Heart rate 2021-01-27 20:31:00 84 /min Universi ty of [facility] Body temperature 2021-01-27 20:25:00 36.83 Cindi [facility]ity of [facility] Branch Respiratory rate 2021-01-27 20:25:00 18 /min Univ ersity of [facility] Body height 2021-01-27 20:25:00 162.6 cm Universi ty of [facility] Body weight 2021-01-27 20:25:00 108.41 kg Universi ty of [facility] BMI 2021-01-27 20:25:00 41.02 kg/m2 Universi ty of [facility] Systolic blood 2021-01-19 22:16:47 128 mm[Hg] Univer sity of [facility] Diastolic blood 2021-01-19 22:16:47 89 mm[Hg] Unive rsity of pressure [facility] Heart rate 2021-01-19 22:16:47 71 /min [facility]i ty [facility] [place] [facility] [place] Body temperature 2021-01-19 22:16:47 37.72 Cindi Univ ersity of [facility] Respiratory rate 2021-01-19 22:16:47 18 /min [facility] Oxygen saturation in 2021-01-19 22:16:47 100 /min [facility] of Arterial blood by [facility] Pulse oximetry Branch Body weight 2021-01-19 18:09:00 106.142 kg Universi ty of [facility] BMI 2021-01-19 18:09:00 40.17 kg/m2 Universi ty of [facility] Systolic blood 2020-11-11 01:09:43 147 mm[Hg] Univer sity of pressure [facility] Diastolic blood 2020-11-11 01:09:43 96 mm[Hg] Unive rsity of pressure [facility] Heart rate 2020-11-11 01:09:43 86 /min [facility] [place] [facility] Body temperature 2020-11-11 01:09:43 37.28 Cindi [facility] [place] [facility] Respiratory rate 2020-11-11 01:09:43 18 /min [facility] [place] [facility] Oxygen saturation in 2020-11-11 01:09:43 100 /min University of Arterial blood by [facility] dejah Pulse oximetry Branch Body weight 2020-11-11 [...] 100 /min University of Arterial blood by [facility] dejah Pulse oximetry Branch Body weight 2020-11-11 00:06:00 106.142 kg [facility] [place] [facility] BMI 2020-11-11 00:06:00 40.17 kg/m2 [facility] [place] [facility] BMI [...] Medical Branch BMI 2019-12-16 21:22:00 40.17 kg/m2 [facility] Systolic blood 2019-12-16 21:22:00 132 mm[Hg] Univer sity of pressure [facility] Diastolic blood 2019-12-16 21:22:00 87 mm[Hg] [facility] Heart rate 2019-12-16 21:22:00 83 /min [facility] Body height 2019-12-16 21:22:00 162.6 cm [facility] Body weight 2019-12-16 21:22:00 106.142 kg [facility] Procedures Procedure Date / Time Performing Clinician Source Performed NOTICE OF PRIVACY 2021-10-31 18:23:05 Doctor Unassigned, [facility] PRACTICES [place] [facility] [place] CONSENT/REFUSAL FOR 2021-10-31 18:20:02 Doctor Unassigned, [facility] DIAGNOSIS AND TREATMENT [place] [facility] [place] CT ABDOMEN PELVIS W 2021-06-18 22:53:18 Nohemi Dinh [facility] Branch ASSIGNMENT OF BENEFITS 2021-06-18 20:28:15 Doctor Jussigned, [facility] XR ABDOMEN 1 VW 2021-06-18 20:23:37 Karlee Gomez [facility] POCT TEST 2021-06-18 20:10:[address] [facility] URINALYSIS 2021-06-18 20:09:00 Karlee Gomez [facility] LIPASE 2021-06-18 20:08:00 Karlee Gomez [facility] HEPATIC FUNCTION PANEL 2021-06-18 20:08:00 Karlee Gomez [facility] ([id number]) (ALB,T.PRO,BILI Medical Branch T,BU/BC,ALT,AST,ALK PHOS) BASIC METABOLIC PANEL 2021-06-18 20:08:00 Karlee Gomez [facility] (NA, K, CL, CO2, GLUCOSE, Medica l Branch BUN, CREATININE, CA) CBC WITH DIFF 2021-06-18 20:08:00 Karlee Gomez [facility] CONSENT/REFUSAL FOR 2021-06-18 19:15:28 Doctor Yomaira, [facility] DIAGNOSIS AND TREATMENT [place] [facility] POCT TEST 2021-03-29 14:12:00 Tasha De Oliveira [facility] ULTRASOUND 2021-03-29 05:01:00 Doctor Yomaira, [facility] [place] [facility] POCT TEST 2021-02-24 00:00:00 Tasha De Oliveira [facility] COMP. METABOLIC PANEL 2021-02-22 04:38:00 Fredo Hogue [facility] ([id number]) Medical [place] CT ABDOMEN PELVIS W 2021-02-22 04:14:23 Riri Joiner [facility] Medical Branch LIPASE 2021-02-22 03:30:00 Fredo Hogue [facility] CBC WITH DIFF 2021-02-22 03:30:00 Fredo Hogue [facility] URINALYSIS 2021-02-22 03:30:00 Fredo Hogue [facility] POCT TEST 2021-02-22 03:30:00 Fredo Hogue [facility] CONSENT/REFUSAL FOR 2021-02-22 02:09:58 Doctor Yomaira, [facility] DIAGNOSIS AND TREATMENT [place] [facility] [place] ASSIGNMENT OF BENEFITS 2021-01-27 20:14:09 Doctor Yomaira, [facility] Medical Branch REFERRAL- 2021-01-22 05:01:00 Doctor Yomaira, [facility] REQUEST/RESPONSE [place] [facility] CT ABDOMEN PELVIS W 2021-01-19 21:04:54 Sam Evans [facility] Medical Branch POCT TEST 2021-01-19 20:54:00 Sam Evans [facility] URINALYSIS 2021-01-19 20:38:00 Sam Evans [facility] COMP. METABOLIC PANEL 2021-01-19 20:36:00 Sam Evans [facility] ([id number]) Medical Branch CBC WITH DIFF 2021-01-19 20:36:00 Sam Evans [facility] NOTICE OF PRIVACY 2021-01-19 18:00:58 Doctor Yomaira [facility] [place] [facility] CONSENT/REFUSAL FOR 2021-01-19 17:56:54 Doctor Yomaira [facility] [place] DIAGNOSIS AND TREATMENT [place] [facility] URINALYSIS 2020-11-11 00:46:00 Nohemi Dinh [facility] NOTICE OF PRIVACY 2020-11-11 00:01:32 Doctor Yomaira [facility] [place] [facility] CONSENT/REFUSAL FOR 2020-11-10 23:59:08 Doctor Yomaira [facility] DIAGNOSIS AND TREATMENT [place] [facility] INSURANCE 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 2020-02-20 05:01:00 Doctor Burnette [facility] [place] [facility] AUTHORIZATION FOR RELEASE 2020-02-10 05:01:00 Doctor Yomaira [facility] [place] [facility] INSURANCE 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 2020-01-31 05:01:00 Doctor Yomaira [facility] [place] [facility] [place] XR KNEE <3 VW RIGHT 2019-12-16 21:34:01 Maia Shrestha [facility] [place] ASSIGNMENT OF BENEFITS 2019-12-16 21:15:03 Doctor Yomaira, [facility] [place] [facility] Encounters Start End Encounter Admission Attending Care Care Encounter Source Date/Time Date/Time Type Type Clinicians Facility Department ID 2021-08-02 Emergency [facility] [id number] Univers 23:28:18 ity of [facility] 2021-08-01 Emergency [facility] [id number] Univers 20:45:33 ity of [facility] 2021-08-01 Emergency [facility] [id number] Univers 14:07:05 ity of [facility] 2021-07-31 Emergency [facility] [id number] Univers 22:40:[address] [facility] Branch 2021-11-02 2021-11-02 Emergency EM [facility], HCAPM SKYLA [id number] [facility] 14:32:00 14:48:00 Jose [id number] [facility] 2021-11-02 2021-11-02 Emergency EM [facility], HCAPM HCAPM [id number] [facility] 14:32:00 14:48:00 Jose 20 [facility] sonal [facility] 2021-10-31 2021-10-31 Emergency X PATRICIA, [facility] ERT [id number] Univers 12:33:00 13:01:00 [facility] 2021-10-31 2021-10-31 [facility] [id number] Univers 12:33:00 13:01:00 Karlee SMITH [id number] ity of [place] [id number] [facility] [id number] [address] 2021-10-31 2021-10-31 Orders Doctor BREANNA [id number] Univers 00:00:00 00:00:00 Only Unassigned, JUANY [id number] ity of [place] [facility] [id number] Matt [id number] [place] [address] Branch 2021-06-18 2021-06-18 [facility] [id number] Univers 14:44:00 19:42:00 Nohemi Smith [id number] i ty of [place] [id number] [id number] [address] 2021-06-14 2021-06-14 Telephone Jordan Correa [id number] Univers 00:00:00 00:00:00 , Mony Leiva [id number] ity of [place] [id number] [facility] [id number] [address] 2021-04-28 2021-04-28 Outpatient R TASHA DE OLIVEIRA [facility] [id number] Univers 13:30:00 13:30:00 ity of [facility] 2021-04-15 2021-04-15 Outpatient R MAXIMUS [facility] [id number] Univers 14:00:00 14:00:00 KILEY ity [facility] [place] 2021-04-12 2021-04-12 Outpatient R JACKELINE [facility] [id number] Univers 08:00:00 08:00:00 KEYSHA [facility] [facility] 2021-04-05 2021-04-05 Office Tasha De Oliveira DCBETSEY 1.2.995.107 [id number] Univers 08:36:11 09:07:09 Visit [place] 350.1.13.10 [place] [phone] [address] 2021-04-05 2021-04-05 Outpatient R TASHA DE OLIVEIRA [facility] [id number] Univers 08:45:00 08:45:00 ity of [facility] 2021-04-02 2021-04-02 Telephone Tasha De Oliveira DCBETSEY 1.2.840.114 [id number] Univers 00:00:00 00:00:00 Cam [place] 350.1.13.10 [place] [phone] [address] 2021-03-29 2021-03-29 Office Tasha De Oliveira DCBETSEY 1.2.372.430 [id number] 2585 Univers 08:54:36 09:35:27 Visit [place] 350.1.13.10 [place] [phone] [address] 2021-03-29 2021-03-29 Outpatient R TASHA DE OLIVEIRA [facility] [id number] Univers 09:00:00 09:00:00 ity [facility] 2021-03-29 2021-03-29 Orders Doctor CARLOS 1.2.840.114 [id number] Univers 00:00:00 00:00:00 Only Unassigned, JUANY 350.1.13.10 ity of [place] [facility] 4.2.7.2.686 Matt as [phone] [address] 2021-03-19 2021-03-19 Outpatient R TASHA DE OLIVEIRA [facility] [id number] Univers 11:00:00 11:00:00 ity [facility] [place] 2021-03-18 2021-03-[address] [facility] 1.2.840.114 [id number] Univers 00:00:00 00:00:00 [place] 350.1.13.10 [place] [phone] Or dic[address] 2021-03-10 2021-03-[address] [facility] 1.2.193.051 [id number] Univers 13:52:09 14:30:52 Visit [place] 350.1.13.10 [place] [phone] [address] 2021-03-10 2021-03-10 Outpatient R ALVINO TASHA [facility] [id number] Univers 14:15:00 14:15:00 ity [facility] [place] 2021-03-02 2021-03-02 Telephone Alvino [facility] 1.2.840.114 [id number] Univers 00:00:00 00:00:00 [place] 350.1.13.10 [place] [phone] [address] 2021-02-24 2021-02-[address] [facility] 1.2.942.408 [id number] Univers 13:22:56 14:21:21 Visit [place] 350.1.13.10 [place] [phone] Or dicky nal [address] [place] [address] 2021-02-24 2021-02-24 Outpatient R TASHA DE OLIVEIRA [facility] [id number] Univers 13:30:00 13:30:00 ity [facility] 2021-02-21 2021-02-[address] [facility] 1.2.840.114 [id number] Univers 22:04:00 05:32:00 Roni [place] 350.1.13.10 [place] [phone] [address] 2021-01-27 2021-01-[address] [facility] 1.2.933.848 [id number] 9153 Univers 15:15:37 16:25:23 Visit Inder Smith 350.1.13.10 [place] [phone] Or dical nal [address] [facility] 2021-01-27 2021-01-27 Outpatient R TASHA DE OLIVEIRA [facility] 16001 [id number] Univers 15:00:00 15:00:00 ity of [facility] 2021-01-27 2021-01-27 Orders Doctor BREANNA 1.2.840.114 [id number] Univers 00:00:00 00:00:00 Only UnassignedJUANY 350.1.13.10 ity of [place] [facility] 4.2.7.2.686 Matt as [phone] [facility] [address] 2021-01-22 2021-01-22 Orders Doctor CARLOS 1.2.840.114 [id number] Univers 00:00:00 00:00:00 Only UnassignedJUANY 350.1.13.10 ity of [place] [facility] 4.2.7.2.686 Matt as [phone] [facility] [address] 2021-01-19 2021-01-19 Emergency [facility] 1.2.212.072 [id number] 0337 Univers 13:10:00 17:27:00 Sam Smith 350.1.13.10 [place] [phone] [facility] [address] 2020-12-21 2020-12-21 Patient [facility] 1.2.840.114 [id number] Univers 00:00:00 00:00:00 Outreach Fredrick PRIMARY 350.1.13.10 i ty of [facility] [place]2.7.2.[place] [phone] Or dical [address] 2020-11-10 2020-11-10 Emergency [facility] 1.2.373.317 [id number] Univers 18:08:00 20:09:00 Nohemi Smith 350.1.13.10 [place] [phone] [place] 778[place] 2020-11-10 2020-11-10 [facility] 1.2.094.255 0712 4565 18:08:00 20:09:00 Nohemi Smith 350.1.13.10 [place] 4.2.7.2.686 [place] [phone] [facility] 2020-02-20 2020-02-20 Orders Doctor BREANNA 1.2.840.114 [id number] Univers 00:00:00 00:00:00 Only Unassigned, JUANY 350.1.13.10 ity of [place] [facility] 4.2.7.2.686 Matt as [phone] [address] 2020-02-20 2020-02-20 Orders Doctor CARLOS 1.2.840.114 [id number] 00:00:00 00:00:00 Only Unassigned, JUANY 350.1.13.10 [place] [facility] [id number] 009 2020-02-10 2020-02-10 Orders Doctor BREANNA 1.2.840.114 [id number] Univers 00:00:00 00:00:00 Only Unassigned, JUANY 350.1.13.10 ity of [place] [facility] 4.2.7.2.686 Matt as [phone] [address] 2020-02-10 2020-02-10 Orders Doctor CARLOS 1.2.840.114 [id number] 00:00:00 00:00:00 Only Unassigned, JUANY 350.1.13.10 [place] [facility] 4.2.7.2.686 [id number] 009 2020-01-31 2020-01-31 Orders Doctor CARLOS 1.2.840.114 [id number] Univers 00:00:00 00:00:00 Only Unassigned, JUANY 350.1.13.10 ity of [place] [facility] 4.2.7.2.686 Matt as [phone] [address] 2020-01-31 2020-01-31 Orders Doctor CARLOS 1.2.840.114 [id number] 00:00:00 00:00:00 Only Unassigned, JUANY 350.1.13.10 [place] [facility] 4.2.7.2.686 [id number] 009 2020-01-29 2020-01-29 [place] [facility] 1.2.840.114 [id number] Univers 00:00:00 00:00:00 [facility] 350.1.13.10 it y of Surgical 4.2.7.2.686 Matt as Specialti [phone] Me dical es [address] [facility] 2020-01-29 2020-01-29 [place] [facility] 1.2.840.114 [id number] 00:00:00 00:00:00 [facility] 350.1.13.10 Surgical 4.2.7.2.686 Specialti [phone] es [address] [place] 2020-01-28 2020-01-28 [place] [facility] 1.2.840.114 [id number] Univers 00:00:00 00:00:00 [facility] 350.1.13.10 it y of Surgical 4.2.7.2.686 Matt as Specialti [phone] Or dical es [address] [facility] 2020-01-28 2020-01-28 [place] [facility] 1.2.840.114 [id number] 00:00:00 00:00:00 [facility] 350.1.13.10 Surgical 4.2.7.2.686 Specialti [phone] es [address] [place] 2019-12-26 2019-12-26 [place] [facility] 1.2.840.114 [id number] Univers 00:00:00 00:00:00 [facility] 350.1.13.10 it y of Surgical 4.2.7.2.686 Matt as Specialti [phone] Me dical es [address] [facility] 2019-12-26 2019-12-26 [place] [facility] 1.2.840.114 [id number] Univers 00:00:00 00:00:00 [facility] 350.1.13.10 it y of Surgical 4.2.7.2.686 Matt as Specialti [phone] Me dical es [address] [facility] 2019-12-26 2019-12-26 Telephone [facility] 1.2.840.114 [id number] 00:00:00 00:00:00 [facility] 350.1.13.10 Surgical 4.2.7.2.686 Specialti [phone] es [address] [place] 2019-12-26 2019-12-26 Telephone [facility] 1.2.840.114 [id number] 00:00:00 00:00:00 [facility] 350.1.13.10 Surgical 4.2.7.2.686 Specialti [phone] es [address] [place] 2019-12-16 2019-12-17 Office [facility] 1.2.486.795 [id number] 7646 [facility] 16:15:48 10:13:00 Visit Anton Bedolla 350.1.13.10 it y of Surgical 4.2.7.2.686 Matt as Specialti [phone] Me dical es [address] [facility] 2019-12-16 2019-12-17 Office [facility] 1.2.159.787 [id number] 7646 16:15:48 10:13:00 Visit [facility] 350.1.13.10 Surgical 4.2.7.2.686 Specialti [id number] es [address] [place] 2019-12-16 2019-12-16 [facility] [id number] Univers 16:34:01 23:59:00 MAIA ity of [facility] 2019-12-16 2019-12-16 [facility] 1.2.840.114 [id number] Univers 16:34:00 23:59:00 Encounter [facility] 350.1.13.10 ity of Surgical 4.2.7.2.686 [place] as Specialti [phone] Me dical es [address] [facility] 2019-12-16 2019-12-16 Orders Doctor BREANNA 1.2.840.114 [id number] Univers 00:00:00 00:00:00 Only Unassigned, JUANY 350.1.13.10 ity of [place] [facility] 4.2.7.2.686 Matt as [phone] [address] Results Test Description Test Time Test Comments Results Result Comments Source HEPATIC FUNCTION PANEL (90888) (ALB,T.PRO,BILI 2021-06-18 20 :35:07 T,BU/BC,ALT,AST,ALK PHOS) Test Item Value Reference Range Interpretation Comme nts TOTAL BILI (test code = 8557612180) 0.3 mg/dL 0.1-1.1 BILI UNCON (test code = 3900616485) 0.3 mg/dL 0.1-1.1 BILI CONJ (test code = 9778755712) 0.0 mg/dL 0.0-0.3 T PROTEIN (test code = 0990179560) 7.6 g/dL 6.3-8.2 ALBUMIN (test code = 9157331233) 4.3 g/dL 3.5-5.0 ALK PHOS (test code = 7229038004) 77 U/L 34-122 ALTv (test code = 1742-6) 42 U/L 5-35 H AST(SGOT) (test code = 5371619748) 33 U/L 13-40 Lab Interpretation (test code = 73594-2) [facility]normal [facility]48671[facility] (ALB,T.PRO,BILI T,BU/BC,ALT,AST,ALK PHOS)2021-06-18 20:35:07 Test Item Value Reference Range Interpretation Comments TOTAL BILI (test code = 2187989153) 0.3 mg/dL 0.1-1.1 BILI UNCON (test code = 4865484278) 0.3 mg/dL 0.1-1.1 BILI CONJ (test code = 8515756438) 0.0 mg/dL 0.0-0.3 T PROTEIN (test code = 3865544241) 7.6 g/dL 6.3-8.2 ALBUMIN (test code = 7756039422) 4.3 g/dL 3.5-5.0 ALK PHOS (test code = 0680911008) 77 U/L 34-122 ALTv (test code = 1742-6) 42 U/L 5-35 H AST(SGOT) (test code = 7560225076) 33 U/L 13-40 Lab Interpretation (test code = Abnormal 56300-0) [facility] (NA, K, CL, CO2, GLUCOSE, BUN, CREATININE, CA)2021-06-18 20:34:47 Test Item Value Reference Range Interpretation Comments NA (test code = 136 mmol/L 135-145 8627381653) K (test code = 4.3 mmol/L 3.5-5.0 0636005473) CL (test code = 105 mmol/L 98-108 4308495923) CO2 TOTAL (test code = 24 mmol/L 23-31 0623348903) AGAP (test code = 2-16 6261114130) BUN (test code = 9 mg/dL 7-23 2331853501) GLUCOSE (test code = 112 mg/dL 70-110 H 6509195013) CREATININE (test code = 0.80 mg/dL 0.50-1.04 4062256123) CALCIUM (test code = 8.8 mg/dL 8.6-10.6 4921963434) eGFR (test code = mL/min/1.73m2 0670932937) ISAMAR (test code = ISAMAR) Association of [...] tests). Lab Interpretation Abnormal (test code = 11829-7) [facility] 20:34:47 Test Item Value Reference Range Interpretation Comments LIPASE (test code = 3208868728) 74 U/L 0-220 Lab Interpretation (test code = Normal 15913-3) [facility] (NA, K, CL, CO2, GLUCOSE, BUN, CREATININE, CA)2021-06-18 20:34:47 Test Item Value Reference Range Interpretation Comments NA (test code = 136 mmol/L 135-145 5310573157) K (test code = 4.3 mmol/L 3.5-5.0 1580639996) CL (test code = 105 mmol/L 98-108 7584297429) CO2 TOTAL (test code = 24 mmol/L 23-31 4837541614) AGAP (test code = 2-16 9286398767) BUN (test code = 9 mg/dL 7-23 0686836943) GLUCOSE (test code = 112 mg/dL 70-110 H 0489707449) CREATININE (test code = 0.80 mg/dL 0.50-1.04 5098333743) CALCIUM (test code = 8.8 mg/dL 8.6-10.6 0368234217) eGFR (test code = mL/min/1.73m2 8680309420) ISAMAR (test code = ISAMAR) Association of [...] tests). Lab Interpretation Abnormal (test code = 39615-0) [facility] 20:34:47 Test Item Value Reference Range Interpretation Comments LIPASE (test code = 6870676797) 74 U/L 0-220 Lab Interpretation (test code = Normal 69836-6) [facility] WITH [id number] 20:27:26 Test Item Value Reference Range Interpretation Comments WBC (test code = See_Comment [Automated message] 6690-2) The system [employer] generated this result transmitted ref erence range: 4.30 - 1 1.10 10*3/?L. The re ference range was not u sed to interpret this result as normal/abnor mal. RBC (test code = See_Comment [Automated message] 239-8) The system [employer] generated this result transmitted ref erence range: [...] RDW-SD (test code 46.2 fL 39.0-49.9 = 40627-6) RDW-CV (test code 14.2 % 12.0-15.5 = 788-0) PLT (test code = See_Comment [Automated message] 777-3) The system whic h generated this result transmitted ref erence range: 166 - 35 8 10*3/?L. The re ference range was not u sed to interpret this result as normal/abnor mal. MPV (test code = 11.3 fL 9.5-12.9 64141-0) NRBC/100 WBC (test See_Comment [Automat ed message] code = 6381137118) The syste m which generated this result transmitted ref erence range: 0.0 - 10 .0 /100 WBCs. The refer ence range was not u sed to interpret this result as normal/abnor mal. NRBC x10^3 (test <0.01 See_Comment [Automated message] code = 1211612693) The syste m which generated this result transmitted ref erence range: 10*3/?L. The reference range was not used to interpr et this result as normal/abnormal . GRAN MAT (NEUT) % 65.2 % (test code = 770-8) IMM GRAN % (test 0.20 % code = 5558048226) LYMPH % (test code 24.7 % = 736-9) MONO % (test code 6.4 % = 5905-5) EOS % (test code = 2.6 % 713-8) BASO % (test code 0.9 % = 706-2) GRAN MAT 3.80 10*3/uL 1.88-7.09 x10^3(ANC) (test code = 4151026118) IMM GRAN x10^3 <0.03 0.00-0.06 (test code = 1588687458) LYMPH x10^3 (test 1.44 10*3/uL 1.32-3.29 code = 731-0) MONO x10^3 (test 0.37 10*3/uL 0.33-0.92 code = 742-7) EOS x10^3 (test 0.15 10*3/uL 0.03-0.39 code = 711-2) BASO x10^3 (test 0.05 10*3/uL 0.01-0.07 code = 704-7) [facility] WITH [id number] 20:27:26 Test Item Value Reference Range Interpretation Comments WBC (test code = See_Comment [Automated message] 6690-2) The system [employer] generated this result transmitted ref erence range: 4.30 - 1 1.10 10*3/?L. The re ference range was not u sed to interpret this result as normal/abnor mal. RBC (test code = See_Comment [Automated message] 789-8) The system [employer] generated this result transmitted ref erence range: [...] RDW-SD (test code 46.2 fL 39.0-49.9 = 63192-6) RDW-CV (test code 14.2 % 12.0-15.5 = 788-0) PLT (test code = See_Comment [Automated message] 157-3) The system [employer] generated this result transmitted ref erence range: 166 - 35 8 10*3/?L. The re ference range was not u sed to interpret this result as normal/abnor mal. MPV (test code = 11.3 fL 9.5-12.9 81120-1) NRBC/100 WBC (test See_Comment [Automat ed message] code = 1816061531) The [employer] which generated this result transmitted ref erence range: 0.0 - 10 .0 /100 WBCs. The refer ence range was not u sed to interpret this result as normal/abnor mal. NRBC x10^3 (test <0.01 See_Comment [Automated message] code = 1640793998) The syste m which generated this result transmitted ref erence range: 10*3/?L. The reference range was not used to interpr et this result as normal/abnormal . GRAN MAT (NEUT) % 65.2 % (test code = 770-8) IMM GRAN % (test 0.20 % code = 8186204893) LYMPH % (test code 24.7 % = 736-9) MONO % (test code 6.4 % = 5905-5) EOS % (test code = 2.6 % 713-8) BASO % (test code 0.9 % = 706-2) GRAN MAT 3.80 10*3/uL 1.88-7.09 x10^3(ANC) (test code = 0251269323) IMM GRAN x10^3 <0.03 0.00-0.06 (test code = 8493480954) LYMPH x10^3 (test 1.44 10*3/uL 1.32-3.29 code = 731-0) MONO x10^3 (test 0.37 10*3/uL 0.33-0.92 code = 742-7) EOS x10^3 (test 0.15 10*3/uL 0.03-0.39 code = 711-2) BASO x10^3 (test 0.05 10*3/uL 0.01-0.07 code = 704-7) [facility] [id number] 20:10:00 Test Item Value Reference Range Interpretation Comments POCT PREG (test code = 1605) negative On board controls acceptable with C present Line (test code = 3574) Lab Interpretation (test code = Normal 67621-4) [facility] [id number] 20:10:00 Test Item Value Reference Range Interpretation Comments POCT PREG (test code = 1605) negative On board controls acceptable with C present Line (test code = 3574) Lab Interpretation (test code = Normal 50312-1) [facility] [id number] 14:12:00 Test Item Value Reference Range Interpretation Comments POCT PREG (test code Negative = 1605) On board controls Yes acceptable with C Line (test code = 3574) POCT PREG LOT # (test code = 3575) POCT PREG TEST DATE (test code = 3576) ISAMAR (test code = ISAMAR) accurate development and interpretation of all internal controls [facility] [id number] 14:12:00 Test Item Value Reference Range Interpretation Comments POCT PREG (test code Negative = 1605) On board controls Yes acceptable with C Line (test code = 3574) POCT PREG LOT # (test code = 3575) POCT PREG TEST DATE (test code = 3576) ISAMAR (test code = ISAMAR) accurate development and interpretation of all internal controls [facility] [id number] 19:07:00 Test Item Value Reference Range Interpretation Comments POCT PREG (test code = 1605) Negative On board controls acceptable with C Yes Line (test code = 3574) POCT PREG LOT # (test code = 3575) POCT PREG TEST DATE (test code = 3576) Lab Interpretation (test code = Normal 36116-6) [facility] [id number] 19:07:00 Test Item Value Reference Range Interpretation Comments POCT PREG (test code = 1605) Negative On board controls acceptable with C Yes Line (test code = 3574) POCT PREG LOT # (test code = 3575) POCT PREG TEST DATE (test code = 3576) Lab Interpretation (test code = Normal 23847-0) [facility] [id number] 19:07:00 Test Item Value Reference Range Interpretation Comments POCT PREG (test code = 1605) Negative On board controls acceptable with C Yes Line (test code = 3574) POCT PREG LOT # (test code = 3575) POCT PREG TEST DATE (test code = 3576) Lab Interpretation (test code = Normal 19981-7) [facility] [id number] 05:20:14 Test Item Value Reference Range Interpretation Comments NA (test code = 139 mmol/L 135-145 2902493257) K (test code = 2.8 mmol/L 3.5-5.0 LL 6065471532) CL (test code = 113 mmol/L 98-108 H 4168119284) CO2 TOTAL (test code = 21 mmol/L 23-31 L 9180595485) AGAP (test code = 2-16 0445210932) BUN (test code = 10 mg/dL 7-23 6875788859) GLUCOSE (test code = 68 mg/dL 70-110 L 9757005090) CREATININE (test code = 0.47 mg/dL 0.50-1.04 L 6854834333) TOTAL BILI (test code = 0.3 mg/dL 0.1-1.9 1250641408) CALCIUM (test code = 6.7 mg/dL 8.6-10.6 L 6078764000) T PROTEIN (test code = 5.1 g/dL 6.3-8.2 L 0612653933) ALBUMIN (test code = 2.8 g/dL 3.5-5.0 L 0635497349) ALK PHOS (test code = 54 U/L 34-122 9120908242) ALTv (test code = 10 U/L 5-35 1742-6) AST(SGOT) (test code = 17 U/L 13-40 3803120027) eGFR (test code = mL/min/1.73m2 7393489433) ISAMAR (test code = ISAMAR) Association of [...] tests). Lab Interpretation Abnormal (test code = 56503-6) [facility] with [id number] 04:44:04 Test Item Value Reference Range Interpretation Comments WBC (test code = See_Comment [Automated message] 0890-2) The system [employer] generated this result transmitted ref erence range: 4.30 - 1 1.10 10*3/?L. The re ference range was not u sed to interpret this result as normal/abnor mal. RBC (test code = See_Comment [Automated message] 179-8) The system [employer] generated this result transmitted ref erence range: [...] RDW-SD (test code 45.1 fL 39.0-49.9 = 83746-9) RDW-CV (test code 13.8 % 12.0-15.5 = 788-0) PLT (test code = See_Comment [Automated message] 307-3) The system [employer] generated this result transmitted ref erence range: 166 - 35 8 10*3/?L. The re ference range was not u sed to interpret this result as normal/abnor mal. MPV (test code = 12.0 fL 9.5-12.9 17702-6) NRBC/100 WBC (test See_Comment [Automat ed message] code = 8958734744) The syste m which generated this result transmitted ref erence range: 0.0 - 10 .0 /100 WBCs. The refer ence range was not u sed to interpret this result as normal/abnor mal. NRBC x10^3 (test <0.01 See_Comment [Automated message] code = 9201331991) The syste m which generated this result transmitted ref erence range: 10*3/?L. The reference range was not used to interpr et this result as normal/abnormal . GRAN MAT (NEUT) % 50.4 % (test code = 770-8) IMM GRAN % (test 0.50 % code = 4227538088) LYMPH % (test code 37.3 % = 736-9) MONO % (test code 7.2 % = 5905-5) EOS % (test code = 3.6 % 713-8) BASO % (test code 1.0 % = 706-2) GRAN MAT 2.94 10*3/uL 1.88-7.09 x10^3(ANC) (test code = 3554668187) IMM GRAN x10^3 0.03 10*3/uL 0.00-0.06 (test code = 6548383269) LYMPH x10^3 (test 2.18 10*3/uL 1.32-3.29 code = 731-0) MONO x10^3 (test 0.42 10*3/uL 0.33-0.92 code = 742-7) EOS x10^3 (test 0.21 10*3/uL 0.03-0.39 code = 711-2) BASO x10^3 (test 0.06 10*3/uL 0.01-0.07 code = 704-7) [facility] 04:29:33 Test Item Value Reference Range Interpretation Comments APPEARANCE (test code = Hazy Clear A 8310294648) COLOR (test code = Yellow Yellow 4634809978) PH (test code = 4.8-8.0 5242466870) SP GRAVITY (test code = 1.003-1.030 7001501181) GLU U QUAL (test code = Normal Normal 3470074965) BLOOD (test code = Negative Negative 9753522380) KETONES (test code = Negative Negative 6802600427) PROTEIN (test code = 30 mg/dL Negative A 2887-8) UROBILIN (test code = 2.0 mg/dL Normal A 6813490555) BILIRUBIN (test code = Negative Negative 9669002983) NITRITE (test code = Negative Negative 3085328501) LEUK SOULEYMANE (test code = Negative Negative 0911449690) RBC/HPF (test code = <1 See_Comment [Autom ated message] 6442029244) The system [employer] generated this result transmit [place] reference range : 0 - 3 HPF. The refe rence range was not u sed to interpret th is result as normal/abnormal . WBC/HPF (test code = <1 See_Comment [Autom ated message] 3217116128) The system [employer] generated this result transmit [place] reference range : 0 - 5 HPF. The refe rence range was not u sed to interpret th is result as normal/abnormal . BACTERIA (test code = Negative Negative 0582725652) MUCOUS (test code = Moderate Negative LPF A 1931164930) AMORPHOUS (test code = Rare Rare HPF 1744125058) SQ EPITH (test code = HPF 6179264358) Lab Interpretation (test Abnormal code = 73950-7) [facility], [id number] 04:21:21 Test Item Value Reference Range Interpretation Comments LIPASE (test code = 0493186339) 69 U/L 0-220 Lab Interpretation (test code = Normal 25625-8) [facility] [id number] 03:30:00 Test Item Value Reference Range Interpretation Comments POCT PREG (test code = 1605) negative On board controls acceptable with C present Line (test code = 3574) Lab Interpretation (test code = Normal 52359-2) [facility] ([id number])2021-01-19 21:36:57 Test Item Value Reference Range Interpretation Comments NA (test code = 139 mmol/L 135-145 2709713544) K (test code = 4.2 mmol/L 3.5-5.0 8449856868) CL (test code = 106 mmol/L 98-108 7476831332) CO2 TOTAL (test code = 24 mmol/L 23-31 6577995111) AGAP (test code = 2-16 3559880120) BUN (test code = 20 mg/dL 7-23 6233058626) GLUCOSE (test code = 89 mg/dL 70-110 9458494414) CREATININE (test code = 0.73 mg/dL 0.50-1.04 7122864589) TOTAL BILI (test code = 0.6 mg/dL 0.1-1.0 3275184658) CALCIUM (test code = 9.0 mg/dL 8.6-10.6 2407163085) T PROTEIN (test code = 7.5 g/dL 6.3-8.2 0786295622) ALBUMIN (test code = 4.5 g/dL 3.5-5.0 0534639828) ALK PHOS (test code = 87 U/L 34-122 6409008947) ALTv (test code = 24 U/L 5-35 1742-6) AST(SGOT) (test code = 42 U/L 13-40 H 0813378538) eGFR (test code = mL/min/1.73m2 2857428912) ISAMAR (test code = ISAMAR) Association of [...] tests). Lab Interpretation Abnormal (test code = 37595-6) [facility]25:51 Test Item Value Reference Range Interpretation Comments APPEARANCE (test code = Hazy Clear A 3177177690) COLOR (test code = Yellow Yellow [id number]) PH (test code = 4.8-8.0 7078250288) SP GRAVITY (test code = 1.003-1.030 H 2104343098) GLU U QUAL (test code = Normal Normal 8269056231) BLOOD (test code = Negative Negative 4796469267) KETONES (test code = 5 mg/dL Negative A 0030597397) PROTEIN (test code = 30 mg/dL Negative A 2887-8) UROBILIN (test code = 2.0 mg/dL Normal A 0312292923) BILIRUBIN (test code = Negative Negative 3596043458) NITRITE (test code = Negative Negative 1396891446) LEUK SOULEYMANE (test code = Negative Negative 0085790937) RBC/HPF (test code = See_Comment H [Autom ated message] 9998842629) The system [employer] generated this result transmit [place] reference range : 0 - 3 HPF. The refe rence range was not u sed to interpret th is result as normal/abnormal . WBC/HPF (test code = See_Comment [Autom ated message] 9043110911) The system [employer] generated this result transmit a[place] reference range : 0 - 5 HPF. The refe rence range was not u sed to interpret th is result as normal/abnormal . BACTERIA (test code = Negative Negative 8151273780) MUCOUS (test code = Marked Negative LPF A 4518413972) SQ EPITH (test code = HPF 7183093442) Lab Interpretation (test Abnormal code = 85409-1) [facility] [id number] 21:15:43CT Abdomen and Pelvis with intravenous contrast. [...] a large 5.5 cm size partially calcified uterinefibroid.[facility] WITH DIFF 2021-01-19 21:09:09 Test Item Value Reference Range Interpretation Comments WBC (test code = See_Comment [Automated message] 6690-2) The system [employer] generated this result transmitted ref erence range: 4.30 - 1 1.10 10*3/?L. The re ference range was not u sed to interpret this result as normal/abnor mal. RBC (test code = See_Comment [Automated message] 789-8) The system [employer] generated this result transmitted ref erence range: [...] RDW-SD (test code 45.5 fL 39.0-49.9 = 11616-5) RDW-CV (test code 14.0 % 12.0-15.5 = 788-0) PLT (test code = See_Comment [Automated message] 777-3) The system [employer] generated this result transmitted ref erence range: 166 - 35 8 10*3/?L. The re ference range was not u sed to interpret this result as normal/abnor mal. MPV (test code = 11.4 fL 9.5-12.9 76515-8) NRBC/100 WBC (test See_Comment [Automat ed message] code = 5291543862) The syste m which generated this result transmitted ref erence range: 0.0 - 10 .0 /100 WBCs. The refer ence range was not u sed to interpret this result as normal/abnor mal. NRBC x10^3 (test <0.01 See_Comment [Automated message] code = 2701662705) The syste m which generated this result transmitted ref erence range: 10*3/?L. The reference range was not used to interpr et this result as normal/abnormal . GRAN MAT (NEUT) % 68.5 % (test code = 770-8) IMM GRAN % (test 0.40 % code = 6246074881) LYMPH % (test code 23.1 % = 736-9) MONO % (test code 6.1 % = 5905-5) EOS % (test code = 1.2 % 713-8) BASO % (test code 0.7 % = 706-2) GRAN MAT 5.18 10*3/uL 1.88-7.09 x10^3(ANC) (test code = 4224361135) IMM GRAN x10^3 0.03 10*3/uL 0.00-0.06 (test code = 5164836516) LYMPH x10^3 (test 1.75 10*3/uL 1.32-3.29 code = 731-0) MONO x10^3 (test 0.46 10*3/uL 0.33-0.92 code = 742-7) EOS x10^3 (test 0.09 10*3/uL 0.03-0.39 code = 711-2) BASO x10^3 (test 0.05 10*3/uL 0.01-0.07 code = 704-7) [id number]54[facility]00 Test Item Value Reference Range Interpretation Comments POCT PREG (test code = 1605) neg On board controls acceptable with yes C Line (test code = 3574) POCT PREG LOT # (test code = 3575) [id number] POCT PREG TEST DATE (test 08/31/2022 code = 3576) Lab Interpretation (test code = Normal 38905-5) [facility]00 Test Item Value Reference Range Interpretation Comments APPEARANCE (test code = Clear Clear 0045804065) COLOR (test code = Yellow Yellow 9699894205) PH (test code = 4.8-8.0 6780692348) SP GRAVITY (test code = 1.003-1.030 3252163571) GLU U QUAL (test code = Normal Normal 2861235282) BLOOD (test code = Negative Negative 7675803444) KETONES (test code = 5 mg/dL Negative A 1680731386) PROTEIN (test code = Negative Negative 2887-8) UROBILIN (test code = 2.0 mg/dL Normal A 7666037717) BILIRUBIN (test code = Negative Negative 8365869780) NITRITE (test code = Negative Negative 5061480817) LEUK SOULEYMANE (test code = Negative Negative 4225248786) RBC/HPF (test code = See_Comment [Autom ated message] 6038381721) The system [employer] generated this result transmit alex[place] reference range : 0 - 3 HPF. The refe rence range was not u sed to interpret th is result as normal/abnormal . WBC/HPF (test code = See_Comment [Autom ated message] 5771543216) The system [employer] generated this result transmit alexand[place] reference range : 0 - 5 HPF. The refe rence range was not u sed to interpret th is result as normal/abnormal . BACTERIA (test code = Negative Negative 1053298876) MUCOUS (test code = Slight Negative LPF A 0822931018) SQ EPITH (test code = <1 HPF 1180019594) Lab Interpretation (test Abnormal code = 49708-4) [facility]3 VW [id number] 21:49:55 Narrowing on right knee 4mm, no fractureUnMem[facility]"
[2022-12-18 00:46] LABS: Urine Blood Negative (Negative); Urine Glucose Negative (Negative); Urine Protein Negative (Negative); Urine Specific Gravity 1.015 (1.005-1.030)
[2022-12-18 00:56] LABS: Urine Specific Gravity/Preg 1.015 (1.005-1.030)
[2022-12-18 00:57] LABS: Urine Bacteria <20 /HPF (<20); Urine Mucus Slight /HPF (None Seen); Urine RBC <5 /HPF (None Seen)
[2022-12-18 01:07] LABS: Absolute Lymphocytes (CBC) 2.4 K/uL (0.7-4.9); Hematocrit 40.4 % (36.0-45.0); Lymphocytes % 37.6 % (15.3-44.8); MCV 92.8 fL (80-100); RBC Red Blood Cell Count 4.35 M/uL (3.86-4.86)
[2022-12-18] MEDS ORDERED: MORPHINE 4 MG/ML SYR ONE (01:10)
[2022-12-18] MEDS ORDERED: ONDANSETRON 4 MG/2 ML VIAL ONE (01:11)
[2022-12-18] MEDS ORDERED: FAMOTIDINE 20 MG/2 ML VIAL IV ONE (01:11)
[2022-12-18] MEDS ORDERED: NA CHLORIDE 0.9% 1,000 ML ONE (01:11)
[2022-12-18 01:21] LABS: Albumin 4.5 g/dL (3.4-5.0); Bilirubin Total 0.2 mg/dL (0.2-1.0); Potassium 3.5 mEq/L (3.5-5.1); Protein, Total 8.7 g/dL (6.4-8.2)
[2022-12-18] MEDS ORDERED: HYDROCODONE/APAP 5/325 MG TAB ONE (09:37)
[2022-12-18] MEDS ORDERED: ONDANSETRON 4 MG (ODT) TAB ONE (09:37)
[2022-12-18] MEDS ORDERED: HYDROMORPHONE HCL 1 MG/ML INJ ONE (09:37)
--- NOTE | 2022-12-18 09:44 | ER ---
Nurse's Notes [facility] Name: Kristina Christensen Age: 37 yrs Sex: Female : 1985 Arrival Date: 12/17/2022 Time: 23:57 Bed 3 Private MD: Diagnosis: Lower abdominal pain, unspecified Presentation: 12/18 00:30 Chief complaint: Patient states: Patient C/O LLQ pain of 10 with nausea,onset for 2 pf1 days with constipation,onset 1 week. Patient stated has a history of Crohns. 00:30 Method Of Arrival: Ambulatory pf1 00:30 Coronavirus screen: Vaccine status: Patient reports receiving the 2nd dose of the covid pf1 vaccine. Moderna Client denies travel out of the [place] in the last 14 days. At this time, the client does not indicate any symptoms associated with coronavirus-19. 00:30 Ebola Screen: Patient negative for fever greater than or equal to 101.5 degrees pf1 Fahrenheit, and additional compatible Ebola Virus Disease symptoms. Initial Sepsis Screen: Does the patient meet any 2 criteria? No. Patient's initial sepsis screen is negative. Does the patient have a suspected source of infection? No. Patient's initial sepsis screen is negative. Risk Assessment: Do you want to hurt yourself or someone else? Patient reports no desire to harm self or others. Onset of symptoms was December 16, 2022. 00:30 Acuity: GAURAV 3 pf1 Triage Assessment: 00:20 General: see nurse assessment. pf1 Historical: - Allergies: 00:20 tramadol; pf1 - PMHx: 00:20 Cancer; remission from cervical cancer for 3.5 years; Cerebrovascular accident; pf1 Crohn's; Hypertension; Seizures; Migraine; Hypoglycemia; - PSHx: 00:20 Ligation of fallopian tube; pf1 - Immunization history:: Adult Immunizations up to date, Client reports receiving the 2nd dose of the Covid vaccine, Moderna Last tetanus immunization: < 5 years ago. - Social history:: Smoking status: Patient/guardian denies using tobacco, the patient reports quitting approximately 15 years ago, Patient uses alcohol, occasionally. Patient/guardian denies using street drugs. Screenin:21 Abuse screen: Denies threats or abuse. Denies injuries from another. Nutritional ha1 screening: No deficits noted. Tuberculosis screening: No symptoms or risk factors identified. 07:22 [facility] ED Fall Risk Assessment (Adult) History of falling in the last 3 months, ss including since admission No falls in past 3 months (0 pts). Assessment: 00:20 General: Appears in no apparent distress. uncomfortable, obese, well groomed, well pf1 developed, Behavior is calm, cooperative, appropriate for age, quiet. 00:20 Pain: Complains of pain in LLQ pain of 10 with nausea and constipation Pain currently pf1 is 10 out of 10 on a pain scale. Neuro: Level of Consciousness is awake, alert, obeys commands, Oriented to person, place, time, situation. Cardiovascular: No deficits noted. Capillary refill < 3 seconds Patient's skin is warm and dry. Respiratory: No deficits noted. Airway is patent Trachea midline Respiratory effort is even, unlabored, Respiratory pattern is regular, symmetrical. GI: Abdomen is round non-distended, Bowel sounds present X 4 quads. Abd is soft Abdomen is tender to palpation in left lower quadrant Reports constipation, nausea. : No deficits noted. No signs and/or symptoms were reported regarding the genitourinary system. EENT: No deficits noted. No signs and/or symptoms were reported regarding the EENT system. Derm: No deficits noted. No signs and/or symptoms reported regarding the dermatologic system. 01:20 Reassessment: Patient and/or family updated on plan of care and expected duration. Pain pf1 level reassessed. Patient is alert, oriented x 3, equal unlabored respirations, skin warm/dry/pink. Patient states feeling better. Patient states symptoms have improved. 02:20 Reassessment: Patient appears in no apparent distress at this time. Patient and/or pf1 family updated on plan of care and expected duration. Pain level reassessed. Patient is alert, oriented x 3, equal unlabored respirations, skin warm/dry/pink. Patient states feeling better. Patient states symptoms have improved. 03:00 Reassessment: Pt reports seeing black spots, provider notified, provider at the bedside jb4 evaluating pt. No new orders at this time. 03:18 Reassessment: Patient ambulated with steady gait to and from restroom.. pf1 03:30 Reassessment: Patient appears in no apparent distress at this time. No changes from pf1 previously documented assessment. Patient and/or family updated on plan of care and expected duration. Pain level reassessed. Patient is alert, oriented x 3, equal unlabored respirations, skin warm/dry/pink. Patient states feeling better. Patient states symptoms have improved. 04:35 Reassessment: Patient appears in no apparent distress at this time. No changes from pf1 previously documented assessment. Patient and/or family updated on plan of care and expected duration. Pain level reassessed. Patient is alert, oriented x 3, equal unlabored respirations, skin warm/dry/pink. Patient states feeling better. Patient states symptoms have improved. 05:30 Reassessment: Patient appears in no apparent distress at this time. Patient and/or pf1 family updated on plan of care and expected duration. Pain level reassessed. Patient is alert, oriented x 3, equal unlabored respirations, skin warm/dry/pink. Patient states symptoms have improved. 06:30 Reassessment: Patient appears in no apparent distress at this time. No changes from pf1 previously documented assessment. Patient is alert, oriented x 3, equal unlabored respirations, skin warm/dry/pink. Patient states feeling better. Patient states symptoms have improved. patient pending US results. . 07:14 Reassessment: Patient appears in no apparent distress at this time. No changes from hb previously documented assessment. 07:22 Reassessment: Pt is requesting additional pain medication. Awaiting imaging results. Pt ss verbalizes understanding update on plan of care. Call light remains within reach. Family member at bedside in recliner, sleeping. Lights dimmed for comfort. 07:53 Reassessment: Dr. Castro notified of patient's request for pain medications. Awaiting ss further orders. 08:18 Reassessment: Pt requesting pain medication, reports pain 7/10, Dr. Castro notified, hb no new orders. 09:39 Reassessment: Patient appears in no apparent distress at this time. Patient and/or hb family updated on plan of care and expected duration. Pain level reassessed. Patient is alert, oriented x 3, equal unlabored respirations, skin warm/dry/pink. Vital Signs: 00:20 BP 133 / 81; Pulse 88; Resp 18 S; Temp 98.6; Pulse Ox 100% on R/A; ha1 01:30 BP 153 / 96; Pulse 84; Resp 16; Pulse Ox 100% on R/A; Pain 7/10; pf1 02:30 BP 143 / 102; Pulse 83; Resp 16; Pulse Ox 100% on R/A; Pain 7/10; pf1 03:25 BP 138 / 97; Pulse 79; Resp 16; Pulse Ox 100% on R/A; Pain 7/10; pf1 04:30 BP 147 / 88; Pulse 75; Resp 18; Pulse Ox 100% on R/A; Pain 4/10; pf1 06:13 BP 143 / 100; Pulse 75; Resp 16; Pulse Ox 100% on R/A; Pain 4/10; pf1 07:15 BP 129 / 86; Pulse 72; Resp 15; Pulse Ox 100% on R/A; hb 08:18 BP 139 / 88; Pulse 72; Resp 15; Pulse Ox 99% on R/A; Pain 7/10; hb 09:39 BP 128 / 78; Pulse 70; Resp 16; Pulse Ox 100% ; hb 01:30 Pain Scale: Adult pf1 02:30 Pain Scale: Adult pf1 03:25 Pain Scale: Adult pf1 04:30 Pain Scale: Adult pf1 06:13 Pain Scale: Adult pf1 08:18 Pain Scale: Adult hb ED Course: 12/17 23:57 Patient arrived in ED. jj6 23:57 Fly Basurto DO is Attending Physician. ms3 12/18 00:20 Patient has correct armband on for positive identification. Placed in gown. Bed in low pf1 position. Call light in reach. Side rails up X2. 00:50 No provider procedures requiring assistance completed. Inserted saline lock: 22 gauge pf1 in right antecubital area, using aseptic technique. Blood collected. 01:02 CBC with Diff Sent. pf1 01:02 CMP Sent. pf1 01:02 Lipase Sent. pf1 02:21 Abdomen In Process Unspecified. EDMS 02:30 IV discontinued, intact, bleeding controlled, No redness/swelling at site. Pressure pf1 dressing applied. 04:02 Mela calle, RN is Primary Nurse. pf1 04:35 Triage completed. pf1 05:16 US Pelvis Complete In Process Unspecified. EDMS 05:16 Transvaginal Study Probe In Process Unspecified. EDMS 07:12 Attending Physician role handed off by Fly Basurto DO ms3 07:12 Roman Castro MD is Attending Physician. ms3 Administered Medications: 03:09 Discontinued: NS 0.9% IV 1000 ml IV at 1 bolus Per protocol; 1000 mL bolus pf1 02:00 Drug: Ondansetron IVP 4 mg Route: IVP; Site: right antecubital; pf1 03:00 Follow up: Response: No adverse reaction; Marked relief of symptoms; Nausea is decreasedpf1 02:00 Drug: morphine IVP or IV 4 mg Route: IVP; Infused Over: 4 mins; Site: right antecubital;pf1 03:00 Follow up: Response: No adverse reaction; Marked relief of symptoms; Pain is decreased; pf1 RASS: Alert and Calm (0) 02:16 Drug: Famotidine IVP 20 mg Route: IVP; Site: right antecubital; pf1 03:00 Follow up: Response: No adverse reaction; Marked relief of symptoms pf1 02:17 Drug: NS 0.9% IV 1000 ml Route: IV; Rate: 1 bolus; Site: right antecubital; pf1 09:38 Drug: HYDROmorphone IVP 1 mg {Note: NO IV ACCESS, OK TO GIVE IM PER DR. CASTRO.} hb Route: IVP; Site: left upper arm; 09:38 Drug: HYDROcodone-acetaminophen PO 5 mg-325 mg 1 tabs Route: PO; hb 09:39 CANCELLED (NO IV ACCESS, CHANGE TO PO PER DR CASTRO): Ondansetron IVP 4 mg IVP once; hb over 2 minutes 09:39 Drug: Ondansetron PO 4 mg Route: PO; hb Medication: 07:22 VIS not applicable for this client. Outcome: 09:43 Discharge ordered by . kdr Signatures: Dispatcher [employer] EDNH Roman Castro MD MD kdr Smirch, Shelby, RN RN Dagmar Colón RN RN Oscar Westfall RN RN jb4 Fly Basurto DO DO ms3 Kristina Kendrick jj6 Karlie Lockwood RN RN ha1 Mela calle RN RN pf1
--- NOTE | 2022-12-18 09:45 | EDPHYS ---
Physician Documentation [facility] Name: Kristina Christensen Age: 37 yrs Sex: Female : 1985 Arrival Date: 12/17/2022 Time: 23:57 Bed 3 Private MD: ED Physician Roman Castro HPI: 12/18 00:15 This 37 yrs old Black Female presents to ER via Unassigned with complaints of ms3 Constipation, Abdominal Pain. 00:15 37-year-old female with past medical history of Crohn's disease presents for abdominal ms3 pain that began 1 and half days prior to arrival. Patient states pain is 10/10 described as cramping. Patient denies nausea, vomiting, diarrhea. Patient endorses constipation for 1.5 weeks. Patient denies alleviating or inciting factors. Historical: - Allergies: 00:20 tramadol; pf1 - PMHx: 00:20 Cancer; remission from cervical cancer for 3.5 years; Cerebrovascular accident; pf1 Crohn's; Hypertension; Seizures; Migraine; Hypoglycemia; - PSHx: 00:20 Ligation of fallopian tube; pf1 - Immunization history:: Adult Immunizations up to date, Client reports receiving the 2nd dose of the Covid vaccine, Moderna Last tetanus immunization: < 5 years ago. - Social history:: Smoking status: Patient/guardian denies using tobacco, the patient reports quitting approximately 15 years ago, Patient uses alcohol, occasionally. Patient/guardian denies using street drugs. ROS: 00:15 Constitutional: Negative for fever, and chills. Neck: Negative for injury, pain, and ms3 swelling, Cardiovascular: Negative for chest pain, and palpitations. Respiratory: Negative for shortness of breath, cough, wheezing, and pleuritic chest pain. 00:15 Abdomen/GI: Positive for abdominal pain, constipation, Negative for nausea, vomiting, and diarrhea. 00:15 All other systems are negative. Exam: 00:15 Constitutional: This is a well developed, well nourished patient who is awake, alert, ms3 and in no acute distress. Neck: Trachea midline, no cervical lymphadenopathy. Supple, full range of motion without nuchal rigidity, or vertebral point tenderness. No Meningismus. Chest/axilla: Normal chest wall appearance and motion. Nontender with no deformity. Cardiovascular: Regular rate and rhythm with a normal S1 and S2. No gallops, murmurs, or rubs. Normal PMI, no JVD. No pulse deficits. Respiratory: Lungs have equal breath sounds bilaterally, clear to auscultation and percussion. No rales, rhonchi or wheezes noted. No increased work of breathing, no retractions or nasal flaring. Skin: Warm, dry with normal turgor. Normal color with no rashes, no lesions, and no evidence of cellulitis. MS/ Extremity: Pulses equal, no cyanosis. Neurovascular intact. Full, normal range of motion. 00:15 Abdomen/GI: Inspection: abdomen appears normal, Bowel sounds: normal, Palpation: moderate abdominal tenderness, in all quadrants. Vital Signs: 00:20 BP 133 / 81; Pulse 88; Resp 18 S; Temp 98.6; Pulse Ox 100% on R/A; ha1 01:30 BP 153 / 96; Pulse 84; Resp 16; Pulse Ox 100% on R/A; Pain 7/10; pf1 02:30 BP 143 / 102; Pulse 83; Resp 16; Pulse Ox 100% on R/A; Pain 7/10; pf1 03:25 BP 138 / 97; Pulse 79; Resp 16; Pulse Ox 100% on R/A; Pain 7/10; pf1 04:30 BP 147 / 88; Pulse 75; Resp 18; Pulse Ox 100% on R/A; Pain 4/10; pf1 06:13 BP 143 / 100; Pulse 75; Resp 16; Pulse Ox 100% on R/A; Pain 4/10; pf1 07:15 BP 129 / 86; Pulse 72; Resp 15; Pulse Ox 100% on R/A; hb 08:18 BP 139 / 88; Pulse 72; Resp 15; Pulse Ox 99% on R/A; Pain 7/10; hb 09:39 BP 128 / 78; Pulse 70; Resp 16; Pulse Ox 100% ; hb 01:30 Pain Scale: Adult pf1 02:30 Pain Scale: Adult pf1 03:25 Pain Scale: Adult pf1 04:30 Pain Scale: Adult pf1 06:13 Pain Scale: Adult pf1 08:18 Pain Scale: Adult hb MDM: 00:08 Patient medically screened. ms3 00:15 Differential diagnosis: appendicitis, bowel obstruction, non-specific abd pain, Crohn's ms3 disease. 07:11 Transition of care: After a detail discussion of the patient's case, care is ms3 transferred to Roman Castro MD. 12/18 00:09 Order name: CBC with Diff; Complete Time: 01:22 ms3 12/18 00:09 Order name: CMP; Complete Time: 01:22 ms3 12/18 00:09 Order name: Lipase; Complete Time: :22 ms3 12/18 00:09 Order name: Urine Microscopic Only; Complete Time: :22 ms3 12/18 00:09 Order name: IV Saline Lock; Complete Time: 01:02 ms3 12/18 00:09 Order name: Labs collected and sent; Complete Time: 01:02 ms3 12/18 00:09 Order name: Urine Dipstick-Ancillary (obtain specimen); Complete Time: 00:46 ms3 12/18 00:09 Order name: Urine Test (obtain specimen); Complete Time: 00:46 ms3 12/18 00:47 Order name: Urine Dipstick-Ancillary; Complete Time: 01:22 EDMS 12/18 00:50 Order name: Urine --Ancillary (enter results); Complete Time: 01:22 ds4 12/18 01:42 Order name: Glucose, Ancillary Testing; Complete Time: 02:20 EDMS 12/18 02:08 Order name: Abdomen EDMS 12/18 03:13 Order name: US Pelvis Complete ms3 12/18 04:32 Order name: Transvaginal Study Probe EDMS Administered Medications: 03:09 Discontinued: NS 0.9% IV 1000 ml IV at 1 bolus Per protocol; 1000 mL bolus pf1 02:00 Drug: Ondansetron IVP 4 mg Route: IVP; Site: right antecubital; pf1 03:00 Follow up: Response: No adverse reaction; Marked relief of symptoms; Nausea is decreasedpf1 02:00 Drug: morphine IVP or IV 4 mg Route: IVP; Infused Over: 4 mins; Site: right antecubital;pf1 03:00 Follow up: Response: No adverse reaction; Marked relief of symptoms; Pain is decreased; pf1 RASS: Alert and Calm (0) 02:16 Drug: Famotidine IVP 20 mg Route: IVP; Site: right antecubital; pf1 03:00 Follow up: Response: No adverse reaction; Marked relief of symptoms pf1 02:17 Drug: NS 0.9% IV 1000 ml Route: IV; Rate: 1 bolus; Site: right antecubital; pf1 09:38 Drug: HYDROmorphone IVP 1 mg {Note: NO IV ACCESS, OK TO GIVE IM PER DR. CASTRO.} hb Route: IVP; Site: left upper arm; 09:38 Drug: HYDROcodone-acetaminophen PO 5 mg-325 mg 1 tabs Route: PO; hb 09:39 CANCELLED (NO IV ACCESS, CHANGE TO PO PER DR CASTRO): Ondansetron IVP 4 mg IVP once; hb over 2 minutes 09:39 Drug: Ondansetron PO 4 mg Route: PO; hb Disposition Summary: 12/18/22 09:43 Discharge Ordered Location: Home kdr Problem: new kdr Symptoms: have improved kdr Condition: Stable kdr Diagnosis - Lower abdominal pain, unspecified kdr Followup: kdr - With: Private Physician - When: 2 - 3 days - Reason: If symptoms return, Further diagnostic work-up, Recheck today's complaints, Continuance of care, Re-evaluation by your physician Discharge Instructions: - Discharge Summary Sheet pf1 Forms: - SBAR form pf1 - Medication Reconciliation Form kdr - Thank You Letter kdr - Antibiotic Education kdr - Prescription Opioid Use kdr Signatures: Dispatcher [employer] EDMS Roman Castro MD MD kdr Ki Mata, REVIEW RN-C REVIEW RN-Cla1 Dagmar Colón, ASCENCION RN Fly Basurto DO DO ms3 Mela calle RN RN pf1 Corrections: (The following items were deleted from the chart) 02:08 00:10 Abdomen Pelvis W Con+CT.RAD.BRZ ordered. EDMS EDMS 09:39 09:22 Ondansetron IVP 4 mg IVP once; over 2 minutes ordered. kdr hb 09:39 09:38 Ondansetron IVP 4 mg IVP once; over 2 minutes ordered. hb hb
[2022-12-18] MEDS ORDERED: metroNIDAZOLE 500 MG TABLET ONE (10:16)
[2022-12-18] MEDS ORDERED: levoFLOXacin 250 MG TAB ONE (10:16)
[2022-12-18 11:01] VITALS: TEMP 98.6
[2022-12-18 11:10] VITALS: BP 128/78; O2SAT 100
--- NOTE | 2022-12-19 12:58 | RAD REPORT ---
EXAM DESCRIPTION: US - Transvaginal Study Probe - 12/18/2022 5:14 am ADDENDUM #1 Addendum: I discussed the findings with Dr. Hamilton at 8:35 AM. 8 cine series have been added to the file since the original interpretation was submitted. Please see the following changes to the original report based on these new cine images. Uterus: The uterus measures 9.1 x 5.5 cm x 5.3 cm on transvaginal series 1-1 images 3 and 5. The endo metrium is 13.6 mm on image 16 of the same series. An intrauterine endometrial device is seen on image 47. And also well demonstrated on series 1-6. A uterine fibroid is not suggested on the transvaginal series 1-1. The cervix measures 1.8 cm on image 57. There is a cervical cyst on image 23 measuring 7 mm. Addition al smaller cervical cysts are seen on cine series 1-2. Left ovary: The left ovary dimensions on transvaginal series 1-1 images 63 and 64 are 3.7 x 4.7 x 3.5 cm. A complex septated cystic mass in the left ovary with acoustic enhancement is seen on transvagin al series 1-1 image 30 measuring 3.4 x 3.3 cm. This could be a hemorrhagic cyst or endometrioma. Ther e is Doppler flow to the peripheral left ovary substance surrounding the central septated cystic mass on transvaginal series 1-1 image 54 with peak systolic velocity around 25 cm/s. There was no flow in the central complex cystic mass noted. Right ovary: An enlarged right ovary is demonstrated on transvaginal series 1-1 image 48 measuring 6. 5 x 5.2 x 6.7 cm. The right ovary is in close proximity to the uterus. There is Doppler flow to the r ight ovary on image 50 with systolic velocity around 20 cm/s. A central vascular ovarian echodensity/ mass on transvaginal series 1-1 image 48 is seen. There are no caliper measurements provided. Ovarian neoplasm is possible. IMPRESSION: 1. Intrauterine device. 2. 3.4 x 3.3 cm left ovary complex cystic mass. 3. Enlarged right ovary with a central complex mass. Ovarian neoplasm is possible. 4. Thickened uterine endometrium. 5. Recommend follow-up MRI and CYTOLOGY LABORATORY MANAGER consultation. Electronically signed by: Ti Odonnell MD 12/18/2022 8:59 AM CDT End of Addendum : 1985. TECHNIQUE: Samaniego scale transabdominal and transvaginal ultrasound of the pelvis with duplex doppler a nd spectral analysis. CLINICAL HISTORY: ABD PAIN. COMPARISON: CT scan December 18, 2022 at 2:11 AM showed enlarged left ovary and lobular uterine contour . FINDINGS: Uterus: The uterus is anteverted. On series 1-1 images 3 and 5 the initial provided uterine dimensions are 10.1 x 5.7 x 5.9 cm. These d imensions include a hypoechoic heterogeneous pedunculated echodensity marginal to the uterine fundus, extending into the right adnexa. Later in the exam on images 27 and 28 the provided uterine dimensions excluding this echodensity are 7.5 x 4.5 x 6 cm. On series 3 this hypoechoic echodensity is measured and has been labeled right ovary. The dimensions are 5.6 x 4.2 x 3.9 cm . Nevertheless it is not clear to me if this is in fact right ovary (or a right ovarian mass) or a hypo echoic posterior intramural and pedunculated fundal fibroid extending into the right adnexa. The endometrial thickness is 10.5 mm. An intrauterine device is better seen on the CT scan. Right ovary: Enlarged right ovary or ovarian mass not distinguish from a potential pedunculated uteri ne fibroid as discussed above. Note that there is no corresponding right ovarian mass suggested on CT. I would recommend MRI for further imaging evaluation. Left ovary: The left ovary measures 4.1 x 5.0 x 4.1 cm. *There is a hypoechoic cyst on image 38 that measures 3.1 x 3.4 cm. Recommendations: 3.4 cm left ovarian benign functional cyst. No follow-up imaging is recommended. Reference: Radiology 2019 Nov;293(2):359-371 There is no other mass. There is normal arterial and venous doppler flow. Peak systolic velocity: 80 cm/s. Resistive index: -. Adnexa: No other mass. There is no free fluid in the cul-de-sac. IMPRESSION: 1. Pedunculated right uterine fibroid versus enlarged right ovary/ovarian mass. Recommen d MRI. 2. 3.4 cm left ovarian hemorrhagic cyst or endometrioma with increased ovarian Doppler velocity. 3. Intrauterine device better seen on the CT. Electronically signed by: Ti Odonnell MD 12/18/2022 7:41 AM CDT Due to temporary technical issues with the PACS/Fluency reporting system, reports are being signed by the in house radiologists without review as a courtesy to insure prompt reporting. The interpreting radiologist is fully responsible for the content of the report.
--- NOTE | 2022-12-19 13:10 | RAD REPORT ---
EXAM DESCRIPTION: US - Pelvis Complete - 12/18/2022 5:14 am ADDENDUM #1 Addendum: I discussed the findings with Dr. Hamilton at 8:35 AM. 8 cine series have been added to the file since the original interpretation was submitted. Please see the following changes to the original report based on these new cine images. Uterus: The uterus measures 9.1 x 5.5 cm x 5.3 cm on transvaginal series 1-1 images 3 and 5. The endo metrium is 13.6 mm on image 16 of the same series. An intrauterine endometrial device is seen on image 47. And also well demonstrated on series 1-6. A uterine fibroid is not suggested on the transvaginal series 1-1. The cervix measures 1.8 cm on image 57. There is a cervical cyst on image 23 measuring 7 mm. Addition al smaller cervical cysts are seen on cine series 1-2. Left ovary: The left ovary dimensions on transvaginal series 1-1 images 63 and 64 are 3.7 x 4.7 x 3.5 cm. A complex septated cystic mass in the left ovary with acoustic enhancement is seen on transvagin al series 1-1 image 30 measuring 3.4 x 3.3 cm. This could be a hemorrhagic cyst or endometrioma. Ther e is Doppler flow to the peripheral left ovary substance surrounding the central septated cystic mass on transvaginal series 1-1 image 54 with peak systolic velocity around 25 cm/s. There was no flow in the central complex cystic mass noted. Right ovary: An enlarged right ovary is demonstrated on transvaginal series 1-1 image 48 measuring 6. 5 x 5.2 x 6.7 cm. The right ovary is in close proximity to the uterus. There is Doppler flow to the r ight ovary on image 50 with systolic velocity around 20 cm/s. A central vascular ovarian echodensity/ mass on transvaginal series 1-1 image 48 is seen. There are no caliper measurements provided. Ovarian neoplasm is possible. IMPRESSION: 1. Intrauterine device. 2. 3.4 x 3.3 cm left ovary complex cystic mass. 3. Enlarged right ovary with a central complex mass. Ovarian neoplasm is possible. 4. Thickened uterine endometrium. 5. 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 Electronically signed by: Ti Odonnell MD 12/18/2022 8:59 AM CDT End of Addendum : 1985. TECHNIQUE: Samaniego scale transabdominal and transvaginal ultrasound of the pelvis with duplex doppler a nd spectral analysis. CLINICAL HISTORY: ABD PAIN. COMPARISON: CT scan December 18, 2022 at 2:11 AM showed enlarged left ovary and lobular uterine contour . FINDINGS: Uterus: The uterus is anteverted. On series 1-1 images 3 and 5 the initial provided uterine dimensions are 10.1 x 5.7 x 5.9 cm. These d imensions include a hypoechoic heterogeneous pedunculated echodensity marginal to the uterine fundus, extending into the right adnexa. Later in the exam on images 27 and 28 the provided uterine dimensions excluding this echodensity are 7.5 x 4.5 x 6 cm. On series 3 this hypoechoic echodensity is measured and has been labeled right ovary. The dimensions are 5.6 x 4.2 x 3.9 cm . Nevertheless it is not clear to me if this is in fact right ovary (or a right ovarian mass) or a hypo echoic posterior intramural and pedunculated fundal fibroid extending into the right adnexa. The endometrial thickness is 10.5 mm. An intrauterine device is better seen on the CT scan. Right ovary: Enlarged right ovary or ovarian mass not distinguish from a potential pedunculated uteri ne fibroid as discussed above. Note that there is no corresponding right ovarian mass suggested on e CT. I would recommend MRI for further imaging evaluation. Left ovary: The left ovary measures 4.1 x 5.0 x 4.1 cm. *There is a hypoechoic cyst on image 38 that measures 3.1 x 3.4 cm. Recommendations: 3.4 cm left ovarian benign functional cyst. No follow-up imaging is recommended. Reference: Radiology 2019 Nov;293(2):359-371 There is no other mass. There is normal arterial and venous doppler flow. Peak systolic velocity: 80 cm/s. Resistive index: -. Adnexa: No other mass. There is no free fluid in the cul-de-sac. IMPRESSION: 1. Pedunculated right uterine fibroid versus enlarged right ovary/ovarian mass. Recommen d MRI. 2. 3.4 cm left ovarian hemorrhagic cyst or endometrioma with increased ovarian Doppler velocity. 3. Intrauterine device better seen on the CT. Electronically signed by: Ti Odonnell MD 12/18/2022 7:41 AM CDT Due to temporary technical issues with the PACS/ Fluency reporting system, reports are being signed b y the in house radiologists without review as a courtesy to insure prompt reporting. The interpreting radiologist is fully responsible for the content of the report.
--- NOTE | 2022-12-19 13:46 | RAD REPORT ---
EXAM DESCRIPTION: CT - Abdomen Pelvis Wo Contrast - 12/18/2022 6:23 am CLINICAL HISTORY: 37 years Female ABD PAIN COMPARISON: CT abdomen pelvis 06/09/2022 TECHNIQUE: CT of the abdomen and pelvis without contrast. All CT scans at this facility use dose modulation, iterative reconstruction, and/or weight based dosi ng when appropriate to reduce radiation dose to as low as reasonably achievable. FINDINGS: Lower thorax: Bibasilar atelectasis. Multiple tiny pulmonary nodules in the right middle lobe, measuring up to to 3 mm. Abdomen: Stomach: Within normal limits Liver: No focal lesions. No intrahepatic ductal distention. Gallbladder: Nondistended Pancreas: Within normal limits Spleen: Within normal limits Right kidney: No hydronephrosis. No renal or ureteral calculi. Left kidney: No hydronephrosis. No renal or ureteral calculi. Adrenal glands: Within normal limits Vascular structures: Within normal limits (although limited evaluation on noncontrast exam). Lymph nodes: No lymphadenopathy by size criteria Pelvis: Small bowel: No significant distention. Appendix: Within normal limits Colon: No distention or acute pericolonic edema. Moderate stool burden. Colonic diverticulosis. Peritoneum: No free intraperitoneal fluid or air. Bones: No acute bone findings. Bladder: Unremarkable. Reproductive organs: Intrauterine device noted. Asymmetrically prominent left ovary. Lower uterine co ntour, likely secondary to underlying fibroids. Soft tissues: Multiple supraumbilical fat-containing ventral abdominal hernias. Note that evaluation of the bowel and solid organs is somewhat limited due to lack of intravenous and oral contrast. IMPRESSION: 1. Asymmetrically prominent left ovary. If clinical concern for underlying ovarian tor maci exists, recommend dedicated pelvic ultrasound. 2. Lobulated uterine contour, likely secondary to underlying fibroids. 3. Colonic diverticulosis without diverticulitis. 4. Moderate stool burden. 5. Multiple supraumbilical fat-containing ventral abdominal hernias. 6. Multiple tiny pulmonary nodules in the right middle lobe, measuring up to 3 mm. If patient is low risk for malignancy, no routine follow-up imaging is recommended; if patient is high risk for mal ignancy, a non-contrast Chest CT at 12 months is optional. If performed and the nodule is stable at 1 2 months, no further follow-up is recommended. Electronically signed by: Ольга Babcock MD 12/18/2022 2:37 AM CDT Due to temporary technical issues with the PACS/Fluency reporting system, reports are being signed by the in house radiologists without review as a courtesy to insure prompt reporting. The interpreting radiologist is fully responsible for the content of the report.
== END 2022-12-18 10:27 | disposition home or self-care (01) ==
LOC: ER 23:55
DX: R10.32 Left lower quadrant pain (principal); R11.0 Nausea; K59.00 Constipation, unspecified; K50.90 Crohn's disease, unspecified, without complications; Z88.8 Allergy status to other drugs, medicaments and biological substances; Z85.41 Personal history of malignant neoplasm of cervix uteri; I63.9 Cerebral infarction, unspecified; I10 Essential (primary) hypertension; R56.9 Unspecified convulsions; G43.909 Migraine, unspecified, not intractable, without status migrainosus; E16.2 Hypoglycemia, unspecified
CPT/HCPCS: 85025; 36415; 81025; 82947; 83690; 80053; 74176; 76856; 76830; 99284; Q0162; J1170; J2405; J7030; 81003; 81015

== ENCOUNTER 2023-07-26 20:25 | Emergency (ER) | payer OTHER ==
--- OUTSIDE RECORDS SUMMARY | 2023-07-26 20:32 | XMS REPORT | Continuity of Care Document ---
:1985 Author Organization [facility] t Address [address] [place] [place] [address] Care Team Providers Name Role Phone Ti Foley [facility], [facility] Primary Care P hysician KEYSHA VIVEROS Attending Clinician Unavailable KEYSHA VIVEROS Attending Clinician Unavailable Doctor Unassigned, [place] Attending Clinician Unavailable Jose Harris Attending Clinician Unavailable KARLEE GOMEZ Attending Clinician Unavailable Karlee Gomez DO Attending Clinician Nohemi Phillip Attending Clinician Mony Ortega RN Attending Clinician Unavailable TASHA DE OLIVEIRA Attending Clinician Unavailable KILEY STROUD Attending Clinician Unavailable Tasha De Oliveira MD Attending Clinician Rhys BANDA, Riri Kraft Attending Clinician Sam Dodson Attending Clinician Fredrick Mina DO Attending Clinician Anton Williamson MD Attending Clinician MAIA SHRESTHA Attending Clinician Unavailable Maia Sullivan Attending Clinician KNOW, DOES_NOT Admitting Clinician Unavailable Physician, No Primary or Family Admitting Clinician Unavaila ble Payers Payer Name Policy Type Policy Number Effective Date Expiration Date S devon [facility] [id number] 2020 HEALTH 00:00:00 [place]ID [place] [id number] 2019 00:00:00 MEDICAID SSI PENDING 2019 PENDING [...] type Weakness Weakness Disease Active Unive rs - ity of 00:00: [place] 00 Medical Branch [...] [facility] [place] 00:00: d 00 Medical [place] tramadol DA Active U RASH,HIVES [facility] 1[facility] [place] 00:00: d 00 Medical [place] No Known DA Active U 2017-10 [facility] Allergie 2-15 [place] s 00:00: d 00 [facility] Tramadol Propensi Active Hives 2016-10 Univer s ty to 0-09 ity of adverse 00:00: [place] reaction 00 Medical s Branch TRAMADOL DRUG Active Hives 2016-10 Univers INGREDI 0-09 ity of 00:00: [place] 00 Medical Branch Social History Social Habit Start Date Stop Date Quantity Comments Source History of tobacco Current smoker Un iversity of use [place] [facility] Sexual orientation Univer sity of [place] [facility] History SDAK University o f Alcohol Frequency [facility] edical Branch History [facility] University o f Alcohol Std Drinks [place] [facility] History [facility] University o f Alcohol Binge [place] [facility] Exposure to 2021-10-01 2021-10-31 Not sure University of SARS-CoV-2 (event) 00:00:00 12:20:00 [place] [facility] History of Social 2021-10-31 2021-10-31 Univers ity of function 00:00:00 00:00:00 [facility] Branch Alcohol intake 2021-03-19 2021-03-19 Current drinker Unive rsity of 00:00:00 00:00:00 of alcohol [place] [facility] (finding) Branch Tobacco use and 2021-01-27 2021-01-27 Smokeless Universit y of exposure 00:00:00 00:00:00 tobacco non-user [facility] dical [place] Alcohol Comment 2018-01-31 2018-01-31 social Universit y of 00:00:00 00:00:00 [facility] Sex [birth year] Universit y of 00:00:00 00:00:00 [facility] Smoking Status Start Date Stop Date Source Ex-smoker 2021-01-27 00:00:00 2021-01-27 00:00:00 Universi ty of [facility] Never smoker [facility] Branch Medications Ordered Filled Start Stop Current [...] 10/31/21 at 1345, OSVALDO amoxicillin 2021- No [id number] 875mg Take 1 Univers 875 mg 10-31 tablet by ity of tablet 00:00: 05:59 mouth 2 [place] 00 :00 (two) Medical times Branch daily for 10 days. iopamidol 2020- No [id number] 100mL 100 mL, Univers (ISOVUE 06-19 Intravenou ity o f 370-500 mL) 00:00: 00:00 s, ONCE, 1 [place] injection 00 :00 dose, On Medica l 100 mL Fri Branch 06/18/21 at 1900, Routine iopamidol 2020- No [id number] 100mL 100 mL, Univers (ISOVUE 06-19 Intravenou [...] Fri Branch 06/18/21 at 1800, STAT midazolam 2020-2020- No 2mg 2 mg, IV Uni vers (VERSED) 06-18 Push, ity of injection 2 23:00: 21:56 ONCE, 1 [place] mg 00 :00 dose, On Medical Fri Branch 06/18/21 at 1800, STAT FENTanyl PF 2020-2020- No 50ug 50 mcg, Un dani (SUBLIMAZE 06-18 Slow IV ity o f (PF)) 22:45: 21:41 Push, [place] injection 00 :00 ONCE, 1 Medical 50 mcg dose, On Branch Mon06/18/21 at 1745, STAT FENTanyl PF 2020-2020- No 50ug 50 mcg, Un dani (SUBLIMAZE 06-18 Slow IV ity o f (PF)) 22:45: 21:41 Push, [place] injection 00 :00 ONCE, 1 Medical 50 mcg dose, On Branch Mon06/18/21 at 1745, STAT ondansetron 2020-2020- No 4mg 4 mg, Slow Univers (ZOFRAN 06-18 IV Push, ity of (PF)) 22:00: 21:16 ONCE, 1 [place] injection 4 00 :00 dose, On Medi dejah mg Fri Branch 06/18/21 at 1700, OSVALDO FENTanyl PF 2020-2020- No 50ug 50 mcg, Un dani (SUBLIMAZE 06-18 Slow IV ity o f (PF)) 22:00: 21:16 Push, [place] injection 00 :00 ONCE, 1 Medical 50 mcg dose, On Branch Mon06/18/21 at 1700, STAT ondansetron 2020- No 4mg 4 mg, Slow Univers (ZOFRAN 06-18 IV Push, ity of (PF)) 22:00: 21:16 ONCE, 1 [place] injection 4 00 :00 dose, On Medi dejah mg Fri Branch 06/18/21 at 1700, OSVALDO FENTanyl PF 2020-2020- No 50ug 50 mcg, Un dani (SUBLIMAZE 06-18- Slow IV ity o f (PF)) 22:00: 21:16 Push, [place] injection 00 :00 ONCE, 1 Medical 50 mcg dose, On Branch 06/18/21 at 1700, STAT ondansetron 2020-0 Yes [id number] 4mg Take 1 Univers (ZOFRAN 9-17 tablet [...] Indication s: acute pain ondansetron 2020-0 Yes [id number] 4mg Take 1 Univers (ZOFRAN 9-17 tablet [...] Indication s: acute pain ondansetron 2020-0 Yes [id number] 4mg Take 1 Univers (ZOFRAN 9-17 tablet [...] (scale 7-10). Indication s: acute pain ondansetron 2021-0 Yes [id number] 4mg Take 1 Univers (ZOFRAN 9-17 tablet by ity of ODT) 4 mg 00:00: mouth [place] disintegrat 00 every 8 Medic al ing tablet (eight) Branch hours as needed for Nausea and Vomiting (N/V). acetaminoph Yes [id number] 1{tbl} Take 1 Un dani en-codeine 9-17 tablet by ity of 300-30 mg 00:00: mouth [place] tablet 00 every 4 Medical (four) Branch hours as needed for Pain (scale 7-10). Indication s: acute pain ondansetron Yes [id number] 4mg Take 1 Univers (ZOFRAN 9-17 tablet by ity of ODT) 4 mg 00:00: mouth [place] disintegrat 00 every 8 Medic al ing tablet (eight) Branch hours as needed for Nausea and Vomiting (N/V). acetaminoph Yes [id number] 1{tbl} Take 1 Un dani en-codeine 9-17 tablet by ity of 300-30 mg 00:00: mouth [place] tablet 00 every 4 Medical (four) Branch hours as needed for Pain (scale 7-10). Indication s: acute pain levonorgest 2020- No [id number] 1{devic Univers reL 03-29 e} ity of (MIRENA) 15:45: 14:35 [place] IUD 1 00 :00 [employer] Branch levonorgest 2020- No [id number] 1{devi 1 Device, Univers reL 03-29 e} Intrauteri ity of (MIRENA) 15:45: 14:35 ne, ONCE, [place] IUD 1 00 :00 1 dose, [employer] [facility] 03/29/21 at 1045, Routine levonorgest 2020- No [id number] 1{devic Univers reL 03-29 e} ity of (MIRENA) 15:45: 14:35 [place] IUD 1 00 :00 [employer] Branch levonorgest 2020- No [id number] 1{devi 1 Device, Univers reL 03-29 e} Intrauteri ity of (MIRENA) 15:45: 14:35 ne, ONCE, [place] IUD 1 00 :00 1 dose, [employer] [facility] 03/29/21 at 1045, Routine miSOPROStoL Yes [id number] 200ug Take 1 Univers 200 mcg 6-09 tablet by ity of tablet 00:00: mouth [place] 00 SEE-INSTRU Medical CTIONS. [place] miSOPROStoL Yes [id number] 200ug Take 1 Univers 200 mcg 6-09 tablet by ity of tablet 00:00: mouth [place] 00 SEE-INSTRU Medical CTIONS. [place] miSOPROStoL Yes [id number] 200ug Take 1 Univers 200 mcg 6-09 tablet by ity of tablet 00:00: mouth [place] 00 SEE-INSTRU Medical CTIONS. [place] miSOPROStoL 2020- No [id number] 200ug Take 1 Univers 200 mcg 6-06 07-28 tablet by ity of tablet 00:00: 00:00 mouth [place] 00 :00 SEE-INSTRU Medical CTIONS. [place] miSOPROStoL 2020- No [id number] 200ug Take 1 Univers 200 mcg 6-06 07- tablet by ity of tablet 00:00: 00:00 mouth [place] 00 :00 SEE-INSTRU Medical CTIONS. [place] ketorolac No 30mg 30 mg, Unive rs (TORADOL) 02-22 Slow IV ity of injection 07:30: 06:33 Push, [place] 30 mg 00 :00 ONCE, 1 Medical dose, [facility] 02/22/21 at 0230, OSVALDO
Fa [facility] member approving Restricted medication : Riri ISAACS RONI KCL No 20meq 20 mEq, IV Unive rs (POTASSIUM 02-22 Piggyback, it y of CHLORIDE) 06:30: 05:53 ONCE, 1 [place] 20 mEq in 00 :00 dose, [facility] Medic al NaCl 0.9% 02/22/[address] [facility] ch (NS) 100 mL 0130, 100 piggyback mL KCL No 40meq 40 mEq, Univers (KLOR-CON 02-22 Oral, ity of M20) tablet 06:30: 05:45 ONCE, 1 [place] 40 mEq 00 :00 dose, Mon Medical 02/22/21 at Branch 0130, Routine acetaminoph 2020- No 1000mg 1,000 mg, Univers en 02-22 Oral, ity of (TYLENOL) 05:00: 04:02 ONCE, 1 [place] tablet 00 :00 dose, Mon Medical 1,000 mg 02/22/21 at Bran h 0000, OSVALDO ondansetron 2020- No 4mg [...] 1,000 mL 00 :00 IV Medical Infusion, Branch ONCE, 1 dose, 02/22/21 at 0000, STAT iopamidol 2020- No [id number] 120mL 120 mL, Univers (ISOVUE 02-22- Intravenou ity o f 370-500 mL) 04:08: 04:11 s, ONCE, 1 [place] injection 00 :00 dose, Sun Medic al 120 mL 02/21/21 at Branch 2315, Routine polyethylen 2020- No [id number] 17g Take 17 g Univers e glycol 5- 05-29 by mouth ity of 3350 00:00: 04:59 daily for [place] (MIRALAX) 00 :00 4 days. [facility] 17 [place] gram/dose powder polyethylen 2020- No [id number] 17g Take 17 g Univers e glycol 5-24 05-29 by mouth ity of 3350 00:00: 04:59 daily for [place] (MIRALAX) 00 :00 4 days. Medical 17 [place] gram/dose powder polyethylen 2020- No [id number] 17g Take 17 g Univers e glycol 5-24 05-29 by mouth ity of 3350 00:00: 04:59 daily for [place] (MIRALAX) 00 :00 4 days. [facility] 17 [place] gram/dose powder polyethylen 2020- No [id number] 17g Take 17 g Univers e glycol 5-24 05-29 by mouth ity of 3350 00:00: 04:59 daily for [place] (MIRALAX) 00 :00 4 days. Medical 17 Branch gram/dose powder miSOPROStoL Yes [id number] 200ug Take 1 Univers 200 mcg 4-28 tablet by ity of tablet 00:00: mouth [place] SEE-INSTR Medical CTIONS. Branch Take one tab the night before and one tab the morning of procedure miSOPROStoL Yes [id number] 200ug Take 1 Univers 200 mcg 4-28 tablet by ity of tablet 00:00: mouth [place] SEE-INSTR Medical CTIONS. Branch Take one tab the night before and one tab the morning of procedure miSOPROStoL Yes [id number] 200ug Take 1 Univers 200 mcg 4-28 tablet by ity of tablet 00:00: mouth [place] SEE-[facility] Medical CTIONS. Branch Take one tab the night before and one tab the morning of procedure miSOPROStoL 2020- No [id number] 200ug Take 1 Univers 200 mcg 4-28 05-26 tablet by ity of tablet 00:00: 00:00 [facility] 00 :00 SEE-INSTRU Medical CTIONS. Branch Take one tab the night before and one tab the morning of procedure miSOPROStoL 2020- No [id number] 200ug Take 1 Univers 200 mcg 4-28 05-26 tablet by ity of tablet 00:00: 00:00 [facility] 00 :00 SEE-INSTRU Medical CTIONS. Branch Take one tab the night before and one tab the morning of procedure miSOPROStoL 2020- No [id number] 200ug Take 1 Univers 200 mcg 4-28 05-26 tablet by ity of tablet 00:00: 00:00 [facility] 00 :00 SEE-INSTRU Medical CTIONS. Branch Take one tab the night before and one tab the morning of procedure ketorolac 2020- No 15mg 15 mg, Tres rs (TORADOL) - 04-20 Slow IV ity of injection 23:15: 22:18 Push, [place] 15 mg 00 :00 ONCE, 1 Medical dose, Ann Baeza 01/19/21 at 1815, OSVALDO
[facility] Rest[facility] medication : SAM EVANS ondansetron 2020- No 4mg 4 mg, Slow Univers (ZOFRAN 01-19-20 IV Push, ity of (PF)) 21:30: 21:29 ONCE, 1 [place] injection 4 00 :00 dose, Tue Med ical mg 01/19/21 at Branch 1630, OSVALDO iohexol 2020- No [id number] 120mL 120 mL, U nivers (OMNIPAQUE 01-19-20 Intravenou it y of 350 21:15: 21:15 s, ONCE, 1 [place] BULK-150 00 :00 dose, Tue Medica l mL) 01/19/21 at Branch injection 1615, 120 mL Routine ibuprofen Yes [id number] 800mg Take 1 U nivers 800 mg 4-20 tablet by ity of tablet 00:00: mouth [place] 00 every 8 Medical (eight) Branch hours as needed for Pain (scale 4-6). Take with food ibuprofen Yes [id number] 800mg Take 1 U nivers 800 mg 4-20 tablet by ity of tablet 00:00: mouth [place] 00 every 8 Medical (eight) Branch hours as needed for Pain (scale 4-6). Take with food ibuprofen Yes [id number] 800mg Take 1 U nivers 800 mg 4-20 tablet by ity of tablet 00:00: mouth [place] 00 every 8 Medical (eight) Branch hours as needed for Pain (scale 4-6). Take with food ibuprofen Yes [id number] 800mg Take 1 U nivers 800 mg 4-20 tablet by ity of tablet 00:00: mouth [place] 00 every 8 Medical (eight) Branch hours as needed for Pain (scale 4-6). Take with food ibuprofen Yes [id number] 800mg Take 1 U nivers 800 mg 4-20 tablet by ity of tablet 00:00: mouth [place] 00 every 8 Medical (eight) Branch hours as needed for Pain (scale 4-6). Take with food ibuprofen 0 Yes [id number] 800mg Take 1 U nivers 800 mg 4-20 tablet by ity of tablet 00:00: mouth [place] 00 every 8 Medical (eight) Branch hours as needed for Pain (scale 4-6). Take with food ibuprofen 2021-0 Yes [id number] 800mg Take 1 U nivers 800 mg 4-20 tablet by ity of tablet 00:00: mouth [place] 00 every 8 Medical (eight) Branch hours as needed for Pain (scale 4-6). Take with food ibuprofen 2020-0 Yes [id number] 800mg Take 1 U nivers 800 mg 4-20 tablet by ity of tablet 00:00: mouth [place] 00 every 8 Medical (eight) Branch hours as needed for Pain (scale 4-6). Take with food ibuprofen 2020-0 Yes [id number] 800mg Take 1 U nivers 800 mg 4-20 tablet by ity of tablet 00:00: mouth [place] 00 every 8 Medical (eight) Branch hours as needed for Pain (scale 4-6). Take with food ibuprofen 2020-0 Yes [id number] 800mg Take 1 U nivers 800 mg 4-20 tablet by ity of tablet 00:00: mouth [place] 00 every 8 Medical (eight) Branch hours as needed for Pain (scale 4-6). Take with food ibuprofen 2020-0 Yes [id number] 800mg Take 1 U nivers 800 mg 4-20 tablet by ity of tablet 00:00: mouth [place] 00 every 8 Medical (eight) Branch hours as needed for Pain (scale 4-6). Take with food ibuprofen 2020-0 Yes [id number] 800mg Take 1 U nivers 800 mg 4-20 tablet by ity of tablet 00:00: mouth [place] 00 every 8 Medical (eight) Branch hours as needed for Pain (scale 4-6). Take with food ibuprofen 2020-0 Yes [id number] 800mg Take 1 U nivers 800 mg 4-20 tablet by ity of tablet 00:00: mouth [place] 00 every 8 Medical (eight) Branch hours as needed for Pain (scale 4-6). Take with food ibuprofen 1-0 Yes [id number] 800mg Take 1 U nivers 800 mg 4-20 tablet by ity of tablet 00:00: mouth [place] 00 every 8 Medical (eight) Branch hours as needed for Pain (scale 4-6). Take with food ibuprofen 1-0 Yes [id number] 800mg Take 1 U nivers 800 mg 4-20 tablet by ity of tablet 00:00: mouth [place] 00 every 8 Medical (eight) Branch hours as needed for Pain (scale 4-6). Take with food ibuprofen 2021-0 Yes [id number] 800mg Take 1 U nivers 800 mg 4-20 tablet by ity of tablet 00:00: mouth [place] 00 every 8 Medical (eight) Branch hours as needed for Pain (scale 4-6). Take with food ibuprofen 2021-0 Yes [id number] 800mg Take 1 U nivers 800 mg 4-20 tablet by ity of tablet 00:00: mouth [place] 00 every 8 Medical (eight) Branch hours as needed for Pain (scale 4-6). Take with food ibuprofen 2021-0 Yes [id number] 800mg Take 1 U nivers 800 mg 4-20 tablet by ity of tablet 00:00: mouth [place] 00 every 8 Medical (eight) Branch hours as needed for Pain (scale 4-6). Take with food ibuprofen 2021-0 Yes [id number] 800mg Take 1 U nivers 800 mg 4-20 tablet by ity of tablet 00:00: mouth [place] 00 every 8 Medical (eight) Branch hours as needed for Pain (scale 4-6). Take with food ibuprofen 2021-0 Yes [id number] 800mg Take 1 U nivers 800 mg 4-20 tablet by ity of tablet 00:00: mouth [place] 00 every 8 Medical (eight) Branch hours as needed for Pain (scale 4-6). Take with food ibuprofen 2021-0 Yes [id number] 800mg Take 1 U nivers 800 mg 4-20 tablet by ity of tablet 00:00: mouth [place] 00 every 8 Medical (eight) Branch hours as needed for Pain (scale 4-6). Take with food ibuprofen 2021-0 Yes [id number] 800mg Take 1 U nivers 800 mg 4-20 tablet by ity of tablet 00:00: mouth [place] 00 every 8 Medical (eight) Branch hours as needed for Pain (scale 4-6). Take with food ibuprofen 2021-0 Yes [id number] 800mg Take 1 U nivers 800 mg 4-20 tablet by ity of tablet 00:00: mouth [place] 00 every 8 Medical (eight) Branch hours as needed for Pain (scale 4-6). Take with food ibuprofen 2021-0 Yes [id number] 800mg Take 1 U nivers 800 mg 4-20 tablet by ity of tablet 00:00: mouth [place] 00 every 8 Medical (eight) Branch hours as needed for Pain (scale 4-6). Take with food ibuprofen 2021-0 Yes [id number] 800mg Take 1 U nivers 800 mg 4-20 tablet by ity of tablet 00:00: mouth [place] 00 every 8 Medical (eight) Branch hours as needed for Pain (scale 4-6). Take with food ibuprofen 2021-0 Yes [id number] 800mg Take 1 U nivers 800 mg 4-20 tablet by ity of tablet 00:00: mouth [place] 00 every 8 Medical (eight) Branch hours as needed for Pain (scale 4-6). Take with food ibuprofen 2021-0 Yes [id number] 800mg Take 1 U nivers 800 mg 4-20 tablet by ity of tablet 00:00: mouth [place] 00 every 8 Medical (eight) Branch hours as needed for Pain (scale 4-6). Take with food acetaminoph 2020-0 2021- No [id number] 1{tbl} Take 1 U nivers [...] ity of capsule 00:00: 00:00 mouth 2 [place] 00 :00 (two) Medical times Branch daily. cephALEXin 2021-0 2021- No 500mg Take 500 U nivers 500 mg 4-14 05-26 mg by ity of capsule 00:00: 00:00 mouth 2 [place] 00 :00 (two) Medical times Branch daily. cephALEXin 2021-0 2020- No 500mg Take 500 U nivers 500 mg 4-14 05-26 mg by ity of capsule 00:00: 00:00 mouth 2 [place] 00 :00 (two) Medical times Branch daily. [...] 1 Univ ers 75 mg EC 3-26 -28 tablet by ity o f tablet 00:00: 00:00 mouth 2 00 :00 (two) Medical times Branch daily with meals. diclofenac 2020-0 2020- No 75mg Take 1 Univ ers 75 mg EC 3-25 01- tablet by ity o f tablet 00:00: 00:00 mouth 2 00 :00 (two) Medical times Branch daily with meals. cloNIDine 2019-0 Yes [id number] .1mg Take 1 Un dani 0.1 mg 7-24 tablet by ity of tablet 00:00: mouth (two) Medical times Branch daily. cloNIDine 2019-0 Yes [id number] .1mg Take 1 Un dani 0.1 mg 7-24 tablet by ity of tablet 00:00: mouth (two) Medical times Branch daily. cloNIDine 2019-0 Yes [id number] .1mg Take 1 Un dani 0.1 mg 7-24 tablet by ity of tablet 00:00: mouth (two) Medical times Branch daily. cloNIDine 2019-0 Yes [id number] .1mg Take 1 Un dani 0.1 mg 7-24 tablet by ity of tablet 00:00: mouth (two) Medical times Branch daily. cloNIDine 2019-0 Yes [id number] .1mg Take 1 Un dani 0.1 mg 7-24 tablet by ity of tablet 00:00: mouth (two) Medical times Branch daily. cloNIDine 2019-0 Yes [id number] .1mg Take 1 Un dani 0.1 mg 7-24 tablet by ity of tablet 00:00: mouth (two) Medical times Branch daily. cloNIDine 2019-0 Yes [id number] .1mg Take 1 Un dani 0.1 mg 7-24 tablet by ity of tablet 00:00: mouth (two) Medical times Branch daily. cloNIDine 2019-0 Yes [id number] .1mg Take 1 Un dani 0.1 mg 7-24 tablet by ity of tablet 00:00: mouth (two) Medical times Branch daily. cloNIDine 2019-0 Yes [id number] .1mg Take 1 Un dani 0.1 mg 7-24 tablet by ity of tablet 00:00: mouth (two) Medical times Branch daily. cloNIDine 2019-0 Yes [id number] .1mg Take 1 Un dani 0.1 mg 7-24 tablet by ity of tablet 00:00: mouth 2 (two) Medical times Branch daily. cloNIDine 2019-0 Yes [id number] .1mg Take 1 Un dani 0.1 mg 7-24 tablet by ity of tablet 00:00: mouth 2 (two) Medical times Branch daily. cloNIDine 2019-0 Yes [id number] .1mg Take 1 Un dani 0.1 mg 7-24 tablet by ity of tablet 00:00: mouth (two) Medical times Branch daily. cloNIDine 2019-0 Yes [id number] .1mg Take 1 Un dani 0.1 mg 7-24 tablet by ity of tablet 00:00: mouth 2 (two) Medical times Branch daily. cloNIDine 2019-0 Yes [id number] .1mg Take 1 Un dani 0.1 mg 7-24 tablet by ity of tablet 00:00: mouth (two) Medical times Branch daily. cloNIDine 2019-0 Yes [id number] .1mg Take 1 Un dani 0.1 mg 7-24 tablet by ity of tablet 00:00: mouth (two) Medical times Branch daily. cloNIDine 2019-0 Yes [id number] .1mg Take 1 Un dani 0.1 mg 7-24 tablet by ity of tablet 00:00: mouth (two) Medical times Branch daily. cloNIDine 2019-0 Yes [id number] .1mg Take 1 Un dani 0.1 mg 7-24 tablet by ity of tablet 00:00: mouth (two) Medical times Branch daily. cloNIDine 2019-0 Yes [id number] .1mg Take 1 Un dani 0.1 mg 7-24 tablet by ity of tablet 00:00: mouth (two) Medical times Branch daily. cloNIDine 2019-0 Yes [id number] .1mg Take 1 Un dani 0.1 mg 7-24 tablet by ity of tablet 00:00: mouth 2 (two) Medical times Branch daily. cloNIDine 2019-0 Yes [id number] .1mg Take 1 Un dani 0.1 mg 7-24 tablet by ity of tablet 00:00: mouth 2 (two) Medical times Branch daily. cloNIDine 2019-0 Yes [id number] .1mg Take 1 Un dani 0.1 mg 7-24 tablet by ity of tablet 00:00: mouth (two) Medical times Branch daily. cloNIDine 2019-0 Yes [id number] .1mg Take 1 Un d[place] 0.1 mg 7-24 tablet by ity of tablet 00:00: mouth (two) Medical times Branch daily. cloNIDine 2019-0 Yes [id number] .1mg Take 1 Un dani 0.1 mg 7-24 tablet by ity of tablet 00:00: mouth (two) Medical times Branch daily. cloNIDine 2019-0 Yes [id number] .1mg Take 1 Un dani 0.1 mg 7-24 tablet by ity of tablet 00:00: mouth (two) Medical times Branch daily. cloNIDine 2019-0 Yes [id number] .1mg Take 1 Un [place] 0.1 mg 7-24 tablet by ity of tablet 00:00: mouth (two) Medical times Branch daily. cloNIDine 2019-0 Yes [id number] .1mg Take 1 Un [place] 0.1 mg 7-24 tablet by ity of tablet 00:00: mouth (two) Medical times Branch daily. cloNIDine 2019-0 Yes [id number] .1mg Take 1 Un [place] 0.1 mg 7-24 tablet by ity of tablet 00:00: mouth (two) Medical times Branch daily. cloNIDine 2019-0 Yes [id number] .1mg Take 1 [place] 0.1 mg 7-24 tablet by ity of tablet 00:00: mouth (two) Medical times Branch daily. cloNIDine 2019-0 Yes [id number] .1mg Take 1 [place] 0.1 mg 7-24 tablet by ity of tablet 00:00: mouth (two) Medical times Branch daily. cloNIDine 2019-0 Yes [id number] .1mg Take 1 [place] 0.1 mg 7-24 tablet by ity of tablet 00:00: mouth (two) Medical times Branch daily. cloNIDine 2019-0 Yes [id number] .1mg Take 1 [place] 0.1 mg 7-24 tablet by ity of tablet 00:00: mouth 2 (two) Medical times Branch daily. cloNIDine 2019-0 Yes [id number] .1mg Take 1 [place] 0.1 mg 7-24 tablet by ity of tablet 00:00: mouth (two) Medical times Branch daily. cloNIDine 2019-0 Yes [id number] .1mg Take 1 [place] 0.1 mg 7-24 tablet by ity of tablet 00:00: mouth (two) Medical times Branch daily. cloNIDine 2019-0 Yes [id number] .1mg Take 1 [place] 0.1 mg 7-24 tablet by ity of tablet 00:00: mouth (two) Medical times Branch daily. cloNIDine 2019-0 Yes [id number] .1mg Take 1 Un [place] 0.1 mg 7-24 tablet by ity of tablet 00:00: mouth (two) Medical times Branch daily. cloNIDine 2019-0 Yes [id number] .1mg Take 1 Un [place] 0.1 mg 7-24 tablet by ity of tablet 00:00: mouth (two) Medical times Branch daily. cloNIDine 2019-0 Yes [id number] .1mg Take 1 Un [place] 0.1 mg 7-24 tablet by ity of tablet 00:00: mouth (two) Medical times Branch daily. cloNIDine 2019-0 Yes [id number] .1mg Take 1 [place] 0.1 mg 7-24 tablet by ity of tablet 00:00: mouth (two) Medical times Branch daily. cloNIDine 2019-0 Yes [id number] .1mg Take 1 [place] 0.1 mg 7-24 tablet by ity of tablet 00:00: mouth (two) Medical times Branch daily. cloNIDine 2019-0 Yes [id number] .1mg Take 1 [place] 0.1 mg 7-24 tablet by ity of tablet 00:00: mouth (two) Medical times Branch daily. cloNIDine 2019-0 Yes [id number] .1mg Take 1 Un dani 0.1 mg 7-24 tablet by ity of tablet 00:00: mouth (two) Medical times Branch daily. acetaminoph 2019-0 Yes [id number] 1{tbl} Take 1 Univers en-codeine 1-16 tablet by ity of (TYLENOL-CO 00:00: mouth [place] DEINE #3) 00 every 4 Medical 300-30 mg (four) Branch tablet hours as needed for Pain (scale 7-10). amoxicillin 2019-0 Yes [id number] 500mg Take 1 Univers 500 mg 1-16 capsule by ity of capsule 00:00: mouth 3 [place] 00 (three) Medical times Branch daily. acetaminoph 2019-0 Yes [id number] 1{tbl} Take 1 Univers en-codeine 1-16 tablet by ity of (TYLENOL-CO 00:00: mouth [place] DEINE #3) 00 every 4 Medical 300-30 mg (four) Branch tablet hours as needed for Pain (scale 7-10). amoxicillin 2018-0 Yes [id number] 500mg Take 1 [facility] 500 mg 1-16 capsule by ity of capsule 00:00: mouth 3 [place] 00 (three) Medical times Branch daily. acetaminoph 0 Yes [id number] 1{tbl} Take 1 [facility] en-codeine 1-16 tablet by ity of (TYLENOL-CO 00:00: mouth [place] DEINE #3) 00 every 4 Medical 300-30 mg (four) Branch tablet hours as needed for Pain (scale 7-10). amoxicillin 0 Yes [id number] 500mg Take 1 [facility] 500 mg 1-16 capsule by ity of capsule 00:00: mouth 3 [place] 00 (three) Medical times Branch daily. acetaminoph 0 Yes [id number] 1{tbl} Take 1 [facility] en-codeine 1-16 tablet by ity of (TYLENOL-CO 00:00: mouth [place] DEINE #3) 00 every 4 Medical 300-30 mg (four) Branch tablet hours as needed for Pain (scale 7-10). amoxicillin 0 Yes [id number] 500mg Take 1 [facility] 500 mg 1-16 capsule by ity of capsule 00:00: mouth 3 [place] 00 (three) Medical times Branch daily. acetaminoph 20190 Yes [id number] 1{tbl} Take 1 [facility] en-codeine 1-16 tablet by ity of (TYLENOL-CO 00:00: mouth [place] DEINE #3) 00 every 4 Medical 300-30 mg (four) Branch tablet hours as needed for Pain (scale 7-10). amoxicillin 2018-0 Yes [id number] 500mg Take 1 [facility] 500 mg 1-16 capsule by ity of capsule 00:00: mouth 3 [place] 00 (three) Medical times Branch daily. acetaminoph 2019-0 Yes [id number] 1{tbl} Take 1 [facility] en-codeine 1-16 tablet by ity of (TYLENOL-CO 00:00: mouth [place] DEINE #3) 00 every 4 Medical 300-30 mg (four) Branch tablet hours as needed for Pain (scale 7-10). amoxicillin Yes [id number] 500mg Take 1 [facility] 500 mg 1-16 capsule by ity of capsule 00:00: mouth 3 [place] 00 (three) Medical times Branch daily. acetaminoph Yes [id number] 1{tbl} Take 1 [facility] en-codeine 1-16 tablet by ity of (TYLENOL-CO 00:00: mouth [place] DEINE #3) 00 every 4 Medical 300-30 mg (four) Branch tablet hours as needed for Pain (scale 7-10). amoxicillin Yes [id number] 500mg Take 1 [facility] 500 mg 1-16 capsule by ity of capsule 00:00: mouth 3 [place] 00 (three) Medical times Branch daily. acetaminoph Yes [id number] 1{tbl} Take 1 [facility] en-codeine 1-16 tablet by ity of (TYLENOL-CO 00:00: mouth [place] DEINE #3) 00 every 4 Medical 300-30 mg (four) Branch tablet hours as needed for Pain (scale 7-10). amoxicillin Yes [id number] 500mg Take 1 [facility] 500 mg 1-16 capsule by ity of capsule 00:00: mouth 3 [place] 00 (three) Medical times Branch daily. acetaminoph Yes [id number] 1{tbl} Take 1 [facility] en-codeine 1-16 tablet by ity of (TYLENOL-CO 00:00: mouth [place] DEINE #3) 00 every 4 Medical 300-30 mg (four) Branch tablet hours as needed for Pain (scale 7-10). amoxicillin Yes [id number] 500mg Take 1 [facility] 500 mg 1-16 capsule by ity of capsule 00:00: mouth 3 [place] 00 (three) Medical times Branch daily. acetaminoph Yes [id number] 1{tbl} Take 1 [facility] en-codeine 1-16 tablet by ity of (TYLENOL-CO 00:00: mouth [place] DEINE #3) 00 every 4 Medical 300-30 mg (four) Branch tablet hours as needed for Pain (scale 7-10). amoxicillin 0 Yes [id number] 500mg Take 1 [facility] 500 mg 1-16 capsule by ity of capsule 00:00: mouth 3 [place] 00 (three) Medical times Branch daily. acetaminoph 2019-0 Yes [id number] 1{tbl} Take 1 [facility] en-codeine 1-16 tablet by ity of (TYLENOL-CO 00:00: mouth [place] DEINE #3) 00 every 4 Medical 300-30 mg (four) Branch tablet hours as needed for Pain (scale 7-10). amoxicillin Yes [id number] 500mg Take 1 [facility] 500 mg 1-16 capsule by ity of capsule 00:00: mouth 3 [place] 00 (three) Medical times Branch daily. acetaminoph 0 Yes [id number] 1{tbl} Take 1 [facility] en-codeine 1-16 tablet by ity of (TYLENOL-CO 00:00: mouth [place] DEINE #3) 00 every 4 Medical 300-30 mg (four) Branch tablet hours as needed for Pain (scale 7-10). amoxicillin Yes [id number] 500mg Take 1 [facility] 500 mg 1-16 capsule by ity of capsule 00:00: mouth 3 [place] 00 (three) Medical times Branch daily. acetaminoph 0 Yes [id number] 1{tbl} Take 1 [facility] en-codeine 1-16 tablet by ity of (TYLENOL-CO 00:00: mouth [place] DEINE #3) 00 every 4 Medical 300-30 mg (four) Branch tablet hours as needed for Pain (scale 7-10). amoxicillin 0 Yes [id number] 500mg Take 1 [facility] 500 mg 1-16 capsule by ity of capsule 00:00: mouth 3 [place] 00 (three) Medical times Branch daily. acetaminoph 0 Yes [id number] 1{tbl} Take 1 [facility] en-codeine 1-16 tablet by ity of (TYLENOL-CO 00:00: mouth [place] DEINE #3) 00 every 4 Medical 300-30 mg (four) Branch tablet hours as needed for Pain (scale 7-10). amoxicillin 2018-0 Yes [id number] 500mg Take 1 [facility] 500 mg 1-16 capsule by ity of capsule 00:00: mouth 3 [place] 00 (three) Medical times Branch daily. acetaminoph Yes [id number] 1{tbl} Take 1 [facility] en-codeine 1-16 tablet by ity of (TYLENOL-CO 00:00: mouth [place] DEINE #3) 00 every 4 Medical 300-30 mg (four) Branch tablet hours as needed for Pain (scale 7-10). amoxicillin Yes [id number] 500mg Take 1 [facility] 500 mg 1-16 capsule by ity of capsule 00:00: mouth 3 [place] 00 (three) Medical times Branch daily. acetaminoph Yes [id number] 1{tbl} Take 1 [facility] en-codeine 1-16 tablet by ity of (TYLENOL-CO 00:00: mouth [place] DEINE #3) 00 every 4 Medical 300-30 mg (four) Branch tablet hours as needed for Pain (scale 7-10). amoxicillin Yes [id number] 500mg Take 1 [facility] 500 mg 1-16 capsule by ity of capsule 00:00: mouth 3 [place] 00 (three) Medical times Branch daily. acetaminoph 2020- No [id number] 1{tbl} Take 1 [facility] en-codeine 1-16 04-28 tablet by ity of (TYLENOL-CO 00:00: 00:[place] DE[place] #3[place] 00 :00 every 4 Medical 300-30 mg (four) Branch tablet hours as needed for Pain (scale 7-10). amoxicillin 2020- No [id number] 500mg Take 1 [facility] 500 mg 1-16 04-28 capsule by ity of capsule 00:00: 00:00 mouth 3 [place] 00 :00 (three) Medical times Branch daily. acetaminoph 2020- No [id number] 1{tbl} Take 1 [facility] en-codeine 1-16 04-28 tablet by ity of (TYLENOL-CO 00:00: 00:[place] DE[place] #3[place] 00 :00 every 4 [facility] 300-30 mg (four) Branch tablet hours as needed for Pain (scale 7-10). amoxicillin 2020- No [id number] 500mg Take 1 [facility] 500 mg 1-16 [...] (three) Medical times Branch daily. acetaminoph 2018-0 2020- No 1{tbl} Take 1 U nivers [...] by ity of tablet 00:00: mouth at [place] 00 bedtime. Medical Branch SERTraline 2017-0 Yes [id number] 50mg Take 1 U nivers 50 mg 9-03 tablet by ity of tablet 00:00: mouth [place] 00 daily. Medical Branch atorvastati 0 Yes 20mg Take 1 Univ ers n 20 mg 9-03 tablet by ity of tablet 00:00: mouth at [place] 00 bedtime. Medical Branch SERTraline 0 Yes [id number] 50mg Take 1 U nivers 50 mg 9-03 tablet by ity of tablet 00:00: mouth [place] 00 daily. Medical Branch atorvastati 2017-0 Yes 20mg Take 1 [facility] ers n 20 mg 9-03 tablet by ity of tablet 00:00: mouth at [place] 00 bedtime. Medical Branch SERTraline 0 Yes [id number] 50mg Take 1 U nivers 50 mg 9-03 tablet by ity of tablet 00:00: mouth [place] 00 daily. Medical Branch atorvastati 0 Yes 20mg Take 1 [facility] ers n 20 mg 9-03 tablet by ity of tablet 00:00: mouth at [place] 00 bedtime. Medical Branch SERTraline 2017-0 Yes [id number] 50mg Take 1 U nivers 50 mg 9-03 tablet by ity of tablet 00:00: mouth [place] 00 daily. Medical Branch atorvastati 2017-0 Yes 20mg Take 1 [facility] ers n 20 mg 9-03 tablet by ity of tablet 00:00: mouth at [place] 00 bedtime. Medical Branch SERTraline 2017-0 Yes [id number] 50mg Take 1 U nivers 50 mg 9-03 tablet by ity of tablet 00:00: mouth [place] 00 daily. Medical Branch atorvastati 0 Yes 20mg Take 1 [facility] ers n 20 mg 9-03 tablet by ity of tablet 00:00: mouth at [place] 00 bedtime. Medical Branch SERTraline 2017-0 Yes [id number] 50mg Take 1 U nivers 50 mg 9-03 tablet by ity of tablet 00:00: mouth [place] 00 daily. Medical Branch atorvastati 2018-0 Yes 20mg Take 1 [facility] ers n 20 mg 9-03 tablet by ity of tablet 00:00: mouth at [place] 00 bedtime. Medical Branch SERTraline 2018-0 Yes [id number] 50mg Take 1 U nivers 50 mg 9-03 tablet by ity of tablet 00:00: mouth [place] 00 daily. Medical Branch atorvastati 2017-0 Yes 20mg Take 1 [facility] ers n 20 mg 9-03 tablet by ity of tablet 00:00: mouth at [place] 00 bedtime. Medical Branch SERTraline 2017-0 Yes [id number] 50mg Take 1 U nivers 50 mg 9-03 tablet by ity of tablet 00:00: mouth [place] 00 daily. Medical Branch atorvastati 0 Yes 20mg Take 1 [facility] ers n 20 mg 9-03 tablet by ity of tablet 00:00: mouth at [place] 00 bedtime. Medical Branch SERTraline 2017-0 Yes [id number] 50mg Take 1 U nivers 50 mg 9-03 tablet by ity of tablet 00:00: mouth [place] 00 daily. Medical Branch atorvastati 0 Yes 20mg Take 1 [facility] ers n 20 mg 9-03 tablet by ity of tablet 00:00: mouth at [place] 00 bedtime. Medical Branch SERTraline 2017-0 Yes [id number] 50mg Take 1 U nivers 50 mg 9-03 tablet by ity of tablet 00:00: mouth [place] 00 daily. Medical Branch atorvastati 2017-0 Yes 20mg Take 1 [facility] ers n 20 mg 9-03 tablet by ity of tablet 00:00: mouth at [place] 00 bedtime. Medical Branch SERTraline 2017-0 Yes [id number] 50mg Take 1 U nivers 50 mg 9-03 tablet by ity of tablet 00:00: mouth [place] 00 daily. Medical Branch atorvastati 2018-0 Yes 20mg Take 1 [facility] ers n 20 mg 9-03 tablet by ity of tablet 00:00: mouth at [place] 00 bedtime. Medical Branch SERTraline 2017-0 Yes [id number] 50mg Take 1 U nivers 50 mg 9-03 tablet by ity of tablet 00:00: mouth [place] 00 daily. Medical Branch atorvastati 2017-0 Yes 20mg Take 1 [facility] ers n 20 mg 9-03 tablet by ity of tablet 00:00: mouth at [place] 00 bedtime. Medical Branch SERTraline 2017-0 Yes [id number] 50mg Take 1 U nivers 50 mg 9-03 tablet by ity of tablet 00:00: mouth [place] 00 daily. Medical Branch atorvastati 2017-0 Yes 20mg Take 1 [facility] ers n 20 mg 9-03 tablet by ity of tablet 00:00: mouth at [place] 00 bedtime. Medical Branch SERTraline 2017-0 Yes [id number] 50mg Take 1 U nivers 50 mg 9-03 tablet by ity of tablet 00:00: mouth [place] 00 daily. Medical Branch atorvastati 0 Yes 20mg Take 1 [facility] ers n 20 mg 9-03 tablet by ity of tablet 00:00: mouth at [place] bedtime. Medical Branch SERTraline 2017-0 Yes [id number] 50mg Take 1 U nivers 50 mg 9-03 tablet by ity of tablet 00:00: mouth 00 daily. Medical Branch atorvastati 2017-0 Yes 20mg Take 1 [facility] ers n 20 mg 9-03 tablet by ity of tablet 00:00: mouth at [place] bedtime. Medical Branch SERTraline 0 Yes [id number] 50mg Take 1 U nivers 50 mg 9-03 tablet by ity of tablet 00:00: mouth [place] 00 daily. Medical Branch atorvastati 2017-0 Yes 20mg Take 1 [facility] ers n 20 mg 9-03 tablet by ity of tablet 00:00: mouth at [place] bedtime. Medical Branch SERTraline 2017-0 Yes [id number] 50mg Take 1 U nivers 50 mg 9-03 tablet by ity of tablet 00:00: mouth [place] 00 daily. Medical Branch atorvastati 2017-0 Yes 20mg Take 1 [facility] ers n 20 mg 9-03 tablet by ity of tablet 00:00: mouth at [place] bedtime. Medical Branch SERTraline 2017-0 Yes [id number] 50mg Take 1 U nivers 50 mg 9-03 tablet by ity of tablet 00:00: mouth [place] 00 daily. Medical Branch atorvastati 2017-0 Yes 20mg Take 1 [facility] ers n 20 mg 9-03 tablet by ity of tablet 00:00: mouth at [place] 00 bedtime. Medical Branch SERTraline 2017-0 Yes [id number] 50mg Take 1 U nivers 50 mg 9-03 tablet by ity of tablet 00:00: mouth [place] 00 daily. Medical Branch atorvastati 2018-0 Yes 20mg Take 1 [facility] ers n 20 mg 9-03 tablet by ity of tablet 00:00: mouth at [place] 00 bedtime. Medical Branch SERTraline 2018-0 Yes [id number] 50mg Take 1 U nivers 50 mg 9-03 tablet by ity of tablet 00:00: mouth [place] 00 daily. Medical Branch atorvastati 2018-0 Yes 20mg Take 1 [facility] ers n 20 mg 9-03 tablet by ity of tablet 00:00: mouth at [place] 00 bedtime. Medical Branch SERTraline 2018-0 Yes [id number] 50mg Take 1 U nivers 50 mg 9-03 tablet by ity of tablet 00:00: mouth [place] 00 daily. Medical Branch atorvastati 2017-0 Yes 20mg Take 1 [facility] ers n 20 mg 9-03 tablet by ity of tablet 00:00: mouth at [place] 00 bedtime. Medical Branch SERTraline 2018-0 Yes [id number] 50mg Take 1 U nivers 50 mg 9-03 tablet by ity of tablet 00:00: mouth [place] 00 daily. Medical Branch atorvastati 2018-0 Yes 20mg Take 1 [facility] ers n 20 mg 9-03 tablet by ity of tablet 00:00: mouth at [place] 00 bedtime. Medical Branch SERTraline 2018-0 Yes [id number] 50mg Take 1 U nivers 50 mg 9-03 tablet by ity of tablet 00:00: mouth [place] 00 daily. Medical Branch atorvastati 2018-0 Yes 20mg Take 1 [facility] ers n 20 mg 9-03 tablet by ity of tablet 00:00: mouth at [place] 00 bedtime. Medical Branch SERTraline 2018-0 Yes [id number] 50mg Take 1 U nivers 50 mg 9-03 tablet by ity of tablet 00:00: mouth [place] 00 daily. Medical Branch atorvastati 2018-0 Yes 20mg Take 1 [facility] ers n 20 mg 9-03 tablet by ity of tablet 00:00: mouth at [place] 00 bedtime. Medical Branch SERTraline 2018-0 Yes [id number] 50mg Take 1 U nivers 50 mg 9-03 tablet by ity of tablet 00:00: mouth [place] 00 daily. Medical Branch atorvastati 2018-0 Yes 20mg Take 1 [facility] ers n 20 mg 9-03 tablet by ity of tablet 00:00: mouth at [place] 00 bedtime. Medical Branch SERTraline 2017-0 Yes [id number] 50mg Take 1 U nivers 50 mg 9-03 tablet by ity of tablet 00:00: mouth [place] 00 daily. Medical Branch atorvastati 2017-0 Yes 20mg Take 1 [facility] ers n 20 mg 9-03 tablet by ity of tablet 00:00: mouth at [place] 00 bedtime. Medical Branch SERTraline 2017-0 Yes [id number] 50mg Take 1 U nivers 50 mg 9-03 tablet by ity of tablet 00:00: mouth [place] 00 daily. Medical Branch atorvastati 0 Yes 20mg Take 1 [facility] ers n 20 mg 9-03 tablet by ity of tablet 00:00: mouth at [place] 00 bedtime. Medical Branch SERTraline 2017-0 Yes [id number] 50mg Take 1 U nivers 50 mg 9-03 tablet by ity of tablet 00:00: mouth [place] 00 daily. Medical Branch atorvastati 0 Yes 20mg Take 1 [facility] ers n 20 mg 9-03 tablet by ity of tablet 00:00: mouth at [place] 00 bedtime. Medical Branch SERTraline 2017-0 Yes [id number] 50mg Take 1 U nivers 50 mg 9-03 tablet by ity of tablet 00:00: mouth [place] 00 daily. Medical Branch atorvastati 0 Yes 20mg Take 1 [facility] ers n 20 mg 9-03 tablet by ity of tablet 00:00: mouth at [place] 00 bedtime. Medical Branch SERTraline 2017-0 Yes [id number] 50mg Take 1 U nivers 50 mg 9-03 tablet by ity of tablet 00:00: mouth [place] 00 daily. Medical Branch atorvastati 2017-0 Yes 20mg Take 1 [facility] ers n 20 mg 9-03 tablet by ity of tablet 00:00: mouth at [place] 00 bedtime. Medical Branch SERTraline 2017-0 Yes [id number] 50mg Take 1 U nivers 50 mg 9-03 tablet by ity of tablet 00:00: mouth [place] 00 daily. Medical Branch atorvastati 2017-0 Yes 20mg Take 1 Univ ers n 20 mg 9-03 tablet by ity of tablet 00:00: mouth at [place] 00 bedtime. Medical Branch SERTraline 2018-0 Yes [id number] 50mg Take 1 U nivers 50 mg 9-03 tablet by ity of tablet 00:00: mouth [place] 00 daily. Medical Branch atorvastati 2018-0 Yes 20mg Take 1 [facility] ers n 20 mg 9-03 tablet by ity of tablet 00:00: mouth at [place] 00 bedtime. Medical Branch SERTraline 2017-0 Yes [id number] 50mg Take 1 U nivers 50 mg 9-03 tablet by ity of tablet 00:00: mouth [place] 00 daily. Medical Branch atorvastati 2017-0 Yes 20mg Take 1 [facility] ers n 20 mg 9-03 tablet by ity of tablet 00:00: mouth at [place] bedtime. Medical Branch SERTraline 2017-0 Yes [id number] 50mg Take 1 U nivers 50 mg 9-03 tablet by ity of tablet 00:00: mouth [place] 00 daily. Medical Branch atorvastati 2017-0 Yes 20mg Take 1 Univ ers n 20 mg 9-03 tablet by ity of tablet 00:00: mouth at [place] bedtime. Medical Branch SERTraline 2017-0 Yes [id number] 50mg Take 1 U nivers 50 mg 9-03 tablet by ity of tablet 00:00: mouth 00 daily. Medical Branch atorvastati 2017-0 Yes 20mg Take 1 Univ ers n 20 mg 9-03 tablet by ity of tablet 00:00: mouth at [place] bedtime. Medical Branch SERTraline 2017-0 Yes [id number] 50mg Take 1 U nivers 50 mg 9-03 tablet by ity of tablet 00:00: mouth [place] 00 daily. Medical Branch atorvastati 2018-0 Yes 20mg Take 1 Univ ers n 20 mg 9-03 tablet by ity of tablet 00:00: mouth at [place] bedtime. Medical Branch SERTraline 2018-0 Yes [id number] 50mg Take 1 U nivers 50 mg 9-03 tablet by ity of tablet 00:00: mouth [place] 00 daily. Medical Branch atorvastati 2017-0 Yes 20mg Take 1 Univ ers n 20 mg 9-03 tablet by ity of tablet 00:00: mouth at [place] 00 bedtime. Medical Branch SERTraline 2017-0 Yes [id number] 50mg Take 1 U nivers 50 mg 9-03 tablet by ity of tablet 00:00: mouth [place] 00 daily. Medical Branch atorvastati 2018-0 Yes 20mg Take 1 Univ ers n 20 mg 9-03 tablet by ity of tablet 00:00: mouth at [place] 00 bedtime. Medical Branch SERTraline 2018-0 Yes [id number] 50mg Take 1 U nivers 50 mg 9-03 tablet by ity of tablet 00:00: mouth [place] 00 daily. Medical Branch atorvastati 2017-0 Yes 20mg Take 1 Univ ers n 20 mg 9-03 tablet by ity of tablet 00:00: mouth at [place] 00 bedtime. Medical Branch SERTraline 2018-0 Yes [id number] 50mg Take 1 U nivers 50 mg 9-03 tablet by ity of tablet 00:00: mouth [place] 00 daily. Medical Branch atorvastati 2017-0 Yes 20mg Take 1 Univ ers n 20 mg 9-03 tablet by ity of tablet 00:00: mouth at [place] 00 bedtime. Medical Branch SERTraline 2017-0 Yes [id number] 50mg Take 1 U nivers 50 mg 9-03 tablet by ity of tablet 00:00: mouth [place] 00 daily. Medical Branch acetaminoph 0 Yes 1{tbl} Take 1 Un [...] of EXTENDED 00:00: [place] 100 MG ORAL Medical CAP Branch SIMETHICONE Yes 1 Tab [...] f CHEW 00:00: [place] [facility] PHENYTOIN 2008- Yes 1 Cap Oral Un dani SODIUM 6-04 BID ity of EXTENDED 00:00: [place] 100 MG ORAL 00 Medical CAP Branch SIMETHICONE Yes 1 Tab Oral Univers 80 MG ORAL 6-04 PC+HSPRN ity o f CHEW 00:00: [place] [facility] PHENYTOIN 2008- Yes 1 Cap [...] CHEW 00:00: [place] 00 Medical Branch PHENYTOIN 2008-0 Yes 1 Cap Oral Un dani SODIUM 6-04 BID ity of EXTENDED 00:00: [place] 100 MG ORAL 00 Medical CAP Branch SIMETHICONE Yes 1 Tab Oral [facility] 80 MG ORAL 6-04 PC+HSPRN ity o f CHEW 00:00: [place] 00 Medical Branch PHENYTOIN 2008-0 Yes 1 Cap Oral Un dani SODIUM [...] Medical TAB daily Branch Immunizations Ordered Filled Date Status Comments Source Immunization Name Immunization Name SARS-COV-2 COVID-19 2021-04-19 Completed Unive rsity of MODERNA VACCINE 00:00:00 [facility] ical Branch SARS-COV-2 COVID-19 2021-04-19 Completed Unive rsity of MODERNA 12+ YRS 00:00:00 [facility] ical VACCINE Branch SARS-COV-2 COVID-19 2021-04-19 Completed Unive rsity of MODERNA VACCINE 00:00:00 [facility] ical Branch SARS-COV-2 COVID-19 2021-04-19 Completed Unive rsity of MODERNA VACCINE 00:00:00 [place] [facility] Branch SARS-COV-2 COVID-19 2021-04-19 Completed Unive rsity of MODERNA VACCINE 00:00:00 [place] [facility] ical Branch SARS-COV-2 COVID-19 2021-04-19 Completed Unive rsity of MODERNA VACCINE 00:00:00 [place] [facility] ical Branch SARS-COV-2 COVID-19 2021-04-19 Completed Unive rsity of MODERNA VACCINE 00:00:00 [facility] ical Branch SARS-COV-2 COVID-19 2021-03-20 Completed Unive rsity of MODERNA VACCINE 00:00:00 [facility] ical Branch SARS-COV-2 COVID-19 2021-03-20 Completed Unive rsity of MODERNA 12+ YRS 00:00:00 [facility] [place] [facility] Branch SARS-COV-2 COVID-19 2021-03-20 Completed Unive rsity of MODERNA VACCINE 00:00:00 [facility] ical Branch SARS-COV-2 COVID-19 2021-03-20 Completed Unive rsity of MODERNA VACCINE 00:00:00 [facility] ical Branch SARS-COV-2 COVID-19 2021-03-20 Completed Unive rsity of MODERNA VACCINE 00:00:00 [facility] ical Branch SARS-COV-2 COVID-19 2021-03-20 Completed Unive rsity of MODERNA VACCINE 00:00:00 [facility] ical Branch SARS-COV-2 COVID-19 2021-03-20 Completed Unive rsity of MODERNA VACCINE 00:00:00 [facility] [place] [facility] H1n1 Vaccine 2009-07-16 Completed University o f 00:00:00 [facility] H1n1 Vaccine 2009-07-16 Completed University o f 00:00:[address] [facility] Branch H1n1 Vaccine 2009-07-16 Completed University o f 00:00:00 [facility] H1n1 Vaccine 2009-07-16 Completed University o f 00:00:00 [facility] H1n1 Vaccine 2009-07-16 Completed University o f 00:00:00 [place] [facility] H1n1 Vaccine 2009-07-16 Completed University o f 00:00:00 [place] [facility] H1n1 Vaccine 2009-07-16 Completed University o f 00:00:00 [facility] H1n1 Vaccine Unknown Completed University o f [facility] SARS-COV-2 COVID-19 Unknown Completed Unive rsity of MODERNA 12+ YRS [place] [facility] ical VACCINE Branch Vital Signs Vital Name Observation Time Observation Value Comments Source Systolic blood 2021-10-31 18:32:00 151 mm[Hg] Univer sity of pressure [place] [facility] Diastolic blood 2021-10-31 18:32:00 109 mm[Hg] Unive rsity of pressure [facility] Branch Heart rate 2021-10-31 18:32:00 92 /min [facility] [place] [facility] Body temperature 2021-10-31 18:32:00 36.[address] [facility] [address] of [facility] Branch Respiratory rate 2021-10-31 18:32:00 16 /min Univ ersity of [place] [facility] Body height 2021-10-31 18:32:00 162.6 cm [facility] [place] [facility] Body weight 2021-10-31 18:32:00 99.791 kg [facility] [place] [facility] BMI 2021-10-31 18:32:00 37.76 kg/m2 Universi ty of [facility] Oxygen saturation in 2021-10-31 18:32:00 100 /min University of Arterial blood by [facility] Pulse oximetry Branch Systolic blood 2021-06-19 00:30:00 135 mm[Hg] Univer sity of pressure [facility] Branch Diastolic blood 2021-06-19 00:30:00 95 mm[Hg] Unive rsity of pressure [facility] Branch Heart rate 2021-06-19 00:30:00 73 /min [facility]i [facility] of [place] [facility] Respiratory rate 2021-06-19 00:30:00 16 /min Univ ersity of [facility] Branch Oxygen saturation in 2021-06-19 00:30:00 100 /min University of Arterial blood by [place] [facility] Pulse oximetry Branch Body temperature 2021-06-19 00:00:00 37.17 Cindi Univ ersity of [place] [facility] Body height 2021-06-18 19:35:00 162.6 cm [facility] [place] [facility] Body weight 2021-06-18 19:35:00 106.142 kg [facility] [place] [facility] BMI 2021-06-18 19:35:00 40.17 kg/m2 [facility] [place] [facility] Systolic blood 2021-04-05 13:45:00 123 [...] 2021-04-05 13:45:00 40.17 kg/m2 [facility] [place] [facility] Systolic blood 2021-03-29 14:19:00 134 mm[Hg] Univer sity of pressure [place] [facility] Diastolic blood 2021-03-29 14:19:00 89 mm[Hg] Unive rsity of pressure [place] [facility] Heart rate 2021-03-29 14:19:00 88 /min [facility]i ty of [place] [facility] Body temperature 2021-03-29 14:19:00 36.89 Cindi Univ ersity of [place] [facility] Respiratory rate 2021-03-29 14:19:00 18 /min Univ ersity of [place] [facility] Body height 2021-03-29 14:19:00 162.6 [...] 2021-03-10 19:16:00 162.6 cm [facility] [place] [facility] Body weight 2021-03-10 19:16:00 107.14 kg [facility] [place] [facility] BMI 2021-03-10 19:16:00 40.54 kg/m2 [facility] [place] [facility] Systolic blood 2021-02-24 19:05:00 139 mm[Hg] Univer sity of pressure [facility] Branch Diastolic blood 2021-02-24 19:05:00 94 mm[Hg] Unive rsity of pressure [facility] Branch Heart rate 2021-02-24 19:05:00 81 /min [facility]i ty of [facility] Branch Body temperature 2021-02-24 19:04:00 36.78 Cindi [facility] of [facility] Branch Respiratory rate 2021-02-24 19:04:00 18 /min Univ ersity of [facility] Body height 2021-02-24 19:04:00 162.6 cm [facility] [place] [facility] Body weight 2021-02-24 19:04:00 107.049 kg [facility] [place] [facility] BMI 2021-02-24 19:04:00 40.51 kg/m2 [facility] [place] [facility] Respiratory rate 2021-02-22 10:00:00 13 /min [facility] Oxygen saturation in 2021-02-22 10:00:00 98 /min [facility] Arterial blood by [facility] Pulse oximetry Branch Systolic blood 2021-02-22 10:00:00 138 mm[Hg] Univer sity of pressure [facility] Branch Diastolic blood 2021-02-22 10:00:00 100 mm[Hg] Unive rsity of pressure [facility] Branch Heart rate 2021-02-22 10:00:00 71 /min [facility] Body temperature 2021-02-22 04:21:04 37.28 Cindi [facility] Body height 2021-02-22 02:24:00 162.6 cm [facility] Body weight 2021-02-22 02:24:00 104.327 kg [facility] BMI 2021-02-22 02:24:00 39.48 kg/m2 [facility] Systolic blood 2021-01-27 20:31:00 145 mm[Hg] [facility] Diastolic blood 2021-01-27 20:31:00 91 mm[Hg] [facility] Heart rate 2021-01-27 20:31:00 84 /min [facility] [place] [facility] [place] Body temperature 2021-01-27 20:25:00 36.83 Cindi [facility] Respiratory rate 2021-01-27 20:25:00 18 /min [facility] Body height 2021-01-27 20:25:00 162.6 cm [facility] [place] [facility] [place] Body weight 2021-01-27 20:25:00 108.41 kg [facility] BMI 2021-01-27 20:25:00 41.02 kg/m2 [facility] Systolic blood 2021-01-19 22:16:47 128 mm[Hg] [facility] Diastolic blood 2021-01-19 22:16:47 89 mm[Hg] [facility] Heart rate 2021-01-19 22:16:47 71 /min [facility] [place] [facility] [place] Body temperature 2021-01-19 22:16:47 37.72 Cindi [facility] [address] Respiratory rate 2021-01-19 22:16:47 18 /min Univ ersity of [facility] Oxygen saturation in 2021-01-19 22:16:47 100 /min University of Arterial blood by [facility] Pulse oximetry Branch Body weight 2021-01-19 18:09:00 106.142 kg [facility] BMI 2021-01-19 18:09:00 40.17 kg/m2 [facility] Systolic blood 2020-11-11 01:09:43 147 mm[Hg] [facility] Diastolic blood 2020-11-11 01:09:43 96 mm[Hg] [facility] Heart rate 2020-11-11 01:09:43 86 /min [facility] Body temperature 2020-11-11 01:09:43 37.28 Cindi [facility] Respiratory rate 2020-11-11 01:09:43 18 /min [facility] Oxygen saturation in 2020-11-11 01:09:43 100 /min [facility] of Arterial blood by [facility] dejah Pulse oximetry Branch Body weight 2020-11-11 00:06:00 106.142 kg [facility] BMI 2020-11-11 00:06:00 40.17 kg/m2 [facility] Systolic blood 2020-11-11 01:09:43 147 mm[Hg] [facility] Diastolic blood 2020-11-11 01:09:43 96 mm[Hg] [facility] Heart rate 2020-11-11 01:09:43 86 /min [facility] Body temperature 2020-11-11 01:09:43 37.28 Cindi [facility] Respiratory rate 2020-11-11 01:09:43 18 /min [facility] Oxygen saturation in 2020-11-11 01:09:43 100 /min [facility] Arterial blood by [facility] Pulse oximetry Branch Body weight 2020-11-11 00:06:00 106.142 kg [facility] BMI 2020-11-11 00:06:00 40.17 kg/m2 [facility] Systolic blood 2019-12-16 21:22:00 132 mm[Hg] [facility] Diastolic blood 2019-12-16 21:22:00 87 mm[Hg] [facility] Heart rate 2019-12-16 21:22:00 83 /min [facility] Body height 2019-12-16 21:22:00 162.6 cm [facility] Body weight 2019-12-16 21:22:00 106.142 kg [facility] BMI 2019-12-16 21:22:00 40.17 kg/m2 [facility] Systolic blood 2019-12-16 21:22:00 132 mm[Hg] [facility] Diastolic blood 2019-12-16 21:22:00 87 mm[Hg] [facility] Heart rate 2019-12-16 21:22:00 83 /min [facility] Body height 2019-12-16 21:22:00 162.6 cm [facility] Body weight 2019-12-16 21:22:00 106.142 kg [facility] BMI 2019-12-16 21:22:00 40.17 kg/m2 [facility] Procedures Procedure Date / Time Performing Clinician Source Performed REFERRAL- 2022-12-20 05:01:00 Doctor Yomaira, [facility] REQUEST/RESPONSE [place] [facility] NOTICE OF PRIVACY 2021-10-31 18:23:05 Doctor Yomaira, [facility]REFUSAL FOR 2021-10-31 18:20:02 Doctor Yomaira [facility] DIAGNOSIS AND [facility]REAT[facility] PELVIS W 2021-06-18 22:53:18 Nohemi Dinh [facility] CONTRAST [facility] ASSIGNMENT OF BENEFITS 2021-06-18 20:28:15 Doctor Yomaira, [facility] XR ABDOMEN 1 VW 2021-06-18 20:23:37 Karlee [facility] POCT TEST 2021-06-18 20:10:00 Karlee Gomez [facility] URINALYSIS 2021-06-18 20:09:00 Karlee Gomez [facility] LIPASE 2021-06-18 20:08:00 Karlee Gomez [facility] HEPATIC FUNCTION PANEL 2021-06-18 20:08:00 Karlee Gomez [facility] ([id number]) (ALB,T.PRO,BILI Medical Branch T,BU/BC,ALT,AST,ALK PHOS) BASIC METABOLIC PANEL 2021-06-18 20:08:00 Karlee Gomez [facility] (NA, K, CL, CO2, GLUCOSE, Medica l Branch BUN, CREATININE, CA) CBC WITH DIFF 2021-06-18 20:08:00 Karlee Gomez [facility] CONSENT/REFUSAL FOR 2021-06-18 19:15:28 Doctor Yomaira [facility] DIAGNOSIS AND TREATMENT [place] [facility] POCT TEST 2021-03-29 14:12:00 Tasha De Oliveira [facility]TR[facility] 2021-03-29 05:01:00 Doctor Yomaira, [facility] [place] [facility] POCT TEST 2021-02-24 00:00:00 Tasha De Oliveira [facility] COMP. METABOLIC PANEL 2021-02-22 04:38:00 Fredo Hogue [facility] ([id number]) Medical [place] CT ABDOMEN PELVIS W 2021-02-22 04:14:23 Riri Isaacs [facility] CONTRAST Medical Branch LIPASE 2021-02-22 03:30:00 Fredo Hogue [facility] CBC WITH DIFF 2021-02-22 03:30:00 Fredo Hogue [facility] URINALYSIS 2021-02-22 03:30:00 Fredo Hogue [facility] POCT TEST 2021-02-22 03:30:00 Fredo Hogue [facility] CONSENT/REFUSAL FOR 2021-02-22 02:09:58 Doctor Yomaira, [facility] DIAGNOSIS AND TREATMENT [place] [facility] ASSIGNMENT OF BENEFITS 2021-01-27 20:14:09 [facility] [place] REFERRAL- 2021-01-22 05:01:00 Doctor Yomaira, [facility] REQUEST/RESPONSE [place] [facility] CT ABDOMEN PELVIS W 2021-01-19 21:04:54 Sam Evans [facility] CONTRAST Medical Branch POCT TEST 2021-01-19 20:54:00 Sam Evans [facility] URINALYSIS 2021-01-19 20:38:00 Sam Evans [facility] COMP. METABOLIC PANEL 2021-01-19 20:36:00 Sam Evans [facility] ([id number]) Medical Branch CBC WITH DIFF 2021-01-19 20:36:00 Sam Evans [facility] NOTICE OF PRIVACY 2021-01-19 18:00:58 Doctor Yomaira [facility] [place] [facility] CONSENT/REFUSAL FOR 2021-01-19 17:56:54 [facility] DIAGNOSIS AND TREATMENT [place] [facility] URINALYSIS 2020-11-11 00:46:00 Nohemi Dinh [place] [facility] NOTICE OF PRIVACY 2020-11-11 00:01:32 Doctor Yomaira [facility] [place] [facility] CONSENT/REFUSAL FOR 2020-11-10 23:59:08 Doctor Tres Burnette [facility] DIAGNOSIS AND TREATMENT [place] [facility] INSURANCE 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 2020-02-20 05:01:00 Doctor Burnette [facility] [place] [facility] AUTHORIZATION FOR RELEASE 2020-02-10 05:01:00 Doctor Yomaira [facility] [place] [facility] INSURANCE 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 2020-01-31 05:01:00 Doctor Yomaira [facility] [place] [facility] [place] XR KNEE <3 VW RIGHT 2019-12-16 21:34:01 Maia Shrestha [facility] ASSIGNMENT OF BENEFITS 2019-12-16 21:15:03 Doctor Yomaira, [facility] [place] [facility] Encounters Start End Encounter Admission Attending Care Care Encounter Source Date/Time Date/Time Type Type Clinicians Facility Department ID 2021-08-02 Emergency [facility] [id number] Univers 23:28:18 ity of [facility] 2021-08-01 Emergency [facility] [id number] Univers 20:45:33 ity of [facility] 2021-08-01 Emergency [facility] [id number] Univers 14:07:05 ity of [facility] 2021-07-31 Emergency [facility] [id number] Univers 22:40:16 [facility] 2023-01-25 2023-01-25 Outpatient R KEYSHA VIVEROS [facility] [id number] Univers 09:30:00 09:30:00 KEYSHA VIVEROS [facility] 2023-01-11 2023-01-11 Outpatient R KEYSHA VIVEROS [facility] [id number] Univers 10:30:00 10:30:00 KEYSHA VIVEROS [facility] 2022-12-26 2022-12-26 Outpatient [facility] [id number] Ti 10:05:34 10:05:34 0327 F Macario 2022-12-20 2022-12-20 Orders Doctor BREANNA 1.2.840.114 [id number] Univers 00:00:00 00:00:00 Only Unassigned, JUANY [id number] ity of [place] [facility] 4.2.7.2.686 Matt as [phone] [address] 2022-12-19 2022-12-19 Outpatient [facility] [id number] Ti 09:12:54 09:12:54 [id number] F [place] 2021-11-02 2021-11-02 Emergency EM Harris, HCAPM SKYLA [id number] [facility] 14:32:00 14:48:00 Jose [id number] [facility] 2021-11-02 2021-11-02 Emergency EM Harris, HCAPM HCAPM [id number] [facility] 14:32:00 14:48:00 Jose Mercer [facility] 2021-10-31 2021-10-31 Emergency [facility] [id number] Univers 12:33:00 13:01:00 KARLEE chu [facility] 2021-10-31 2021-10-31 Emergency [facility] 1.2.840.114 [id number] Univers 12:33:00 13:01:00 Kalree SMITH [id number] ity [facility] 4.2.7.2.686 [facility] [phone] [facility] 084 [place] 2021-10-31 2021-10-31 Orders Doctor CARLOS 1.2.840.114 [id number] Univers 00:00:00 00:00:00 Only Unassigned, JUANY [id number] ity of [place] [facility] 4.2.7.2.686 Matt as [phone] [facility] 009 [place] 2021-06-18 2021-06-18 Emergency [facility] [id number] [facility] 14:44:00 19:42:00 Nohemi Smith [id number] i ty [place] [phone] [address] 2021-06-14 2021-06-14 Telephone Jordan Correa 1.2.840.114 [id number] Univers 00:00:00 00:00:00 , [place] 350.1.13.10 ity [facility] [place]7.2.[place] [phone] [address] 2021-04-28 2021-04-28 Outpatient R TASHA DE OLIVEIRA [facility] [id number] Univers 13:30:00 13:30:00 ity [facility] 2021-04-15 2021-04-15 Out[facility] [id number] Univers 14:00:00 14:00:00 KILEY [facility] 2021-04-12 2021-04-12 Outpatient R [facility] [id number] Univers 08:00:00 08:00:00 KEYSHA [facility] 2021-04-05 2021-04-05 Office Alvino Taylor [facility] [id number] Univers 08:36:11 09:07:09 Visit Inder Smith 350.1.13.10 i ty [place] [phone] [address] 2021-04-05 2021-04-05 Outpatient R TASHA DE OLIVEIRA [facility] [id number] Univers 08:45:00 08:45:00 ity [facility] 2021-04-02 2021-04-02 Telephone Tasha De Oliveira [facility] 1.2.840.114 [id number] Univers 00:00:00 00:00:00 Cam Taylor 350.1.13.10 i ty [place] [id number] Ma dical nal [address] [place] [address] 2021-03-29 2021-03-29 Office [facility] [id number] Univers 08:54:36 09:35:27 Visit Cam [place] 350.1.13.10 i ty [place] 4[place].7.[place] [phone] [address] 2021-03-29 2021-03-29 Outpatient R TASHA DE OLIVEIRA [facility] [id number] Univers 09:00:00 09:00:00 ity of [facility] 2021-03-29 2021-03-29 Orders Doctor BREANNA 1.2.840.114 [id number] Univers 00:00:00 00:00:00 Only Unassigned, JUANY 350.1.13.10 ity of [place] [facility] 4.2.7.2.686 [place] as [phone] [facility] 009 [place] 2021-03-22 2021-03-22 Patient Doctor BREANNA 1.2.840.114 [id number] Univers 00:00:00 00:00:00 Secure Msg Unassigned, JUANY 350.1.13.10 ity of [place] [facility] 4.2.7.2.686 Matt as [phone] [facility] 019 [place] 2021-03-19 2021-03-19 Outpatient R TASHA DE OLIVEIRA [facility] [id number] Univers 11:00:00 11:00:00 ity [facility] 2021-03-18 2021-03-18 Telephone [facility] 1.2.840.114 [id number] Univers 00:00:00 00:00:00 Cam Taylor 350.1.13.10 i [place] [phone] [address] 2021-03-10 2021-03-10 Office Tasha De Oliveira [facility] [id number] Univers 13:52:09 14:30:52 Visit Cam [place] 350.1.13.10 i ty [place] 4.2.7.2.[place] [phone] [address] 2021-03-10 2021-03-10 Outpatient R ALVINO TASHA [facility] [id number] Univers 14:15:00 14:15:00 ity of [facility] 2021-03-02 2021-03-02 Telephone Tasha De Oliveira [facility] 1.2.840.114 [id number] Univers 00:00:00 00:00:00 Cam Taylor 350.1.13.10 i ty [place].2.[place] [phone] [address] 2021-02-24 2021-02-24 Office Tasha De Oliveira [facility] [id number] Univers 13:22:56 14:21:21 Visit Inder Smith 350.1.13.10 i ty [place] 4[place]2.7.2.[place] [phone] [address] 2021-02-24 2021-02-24 Outpatient R TASHA DE OLIVEIRA [facility] [id number] Univers 13:30:00 13:30:00 ity [facility] 2021-02-21 2021-02-22 Emergency Riri Isaacs [facility] 1.2.840.114 [id number] Univers 22:04:00 05:32:00 Roni Smith 350.1.13.10 i ty [place] 4[place].2.[place] [phone] [address] 2021-01-27 2021-01-27 Office Tasha De Oliveira [facility] [id number] Univers 15:15:37 16:25:23 Visit Inder Smith 350.1.13.10 i ty [place] 4.2.7.2.[place] [phone] [address] 2021-01-27 2021-01-27 Outpatient R TASHA DE OLIVEIRA [facility] [id number] Univers 15:00:00 15:00:00 ity [facility] 2021-01-27 2021-01-27 Orders Doctor CARLOS 1.2.840.114 [id number] Univers 00:00:00 00:00:00 Only Unassigned, JUANY 350.1.13.10 ity of [place] [facility] 4.2.7.2.686 Matt as [phone] [address] 2021-01-22 2021-01-22 Orders Doctor BREANNA 1.2.840.114 [id number] Univers 00:00:00 00:00:00 Only Unassigned, JUANY 350.1.13.10 ity of [place] [facility] 4.2.7.2.686 [place] as [phone] [address] 2021-01-19 2021-01-19 Emergency [facility] [id number] Univers 13:10:00 17:27:00 Sam Aravind [place] 350.1.13.10 i ty [place] [phone] [address] 2020-12-21 2020-12-21 Patient [facility] 1.2.840.114 [id number] Univers 00:00:00 00:00:00 [facility] 350.1.13.10 i ty of [facility] 4.2.7.2.686 [place] [phone] Ma dical [address] Branch 2020-11-10 2020-11-10 Emergency [facility] [id number] [id number] Univers 18:08:00 20:09:00 Nohemi [place] 350.1.13.10 i ty [place] [phone] [place] [address] Branch 2020-11-10 2020-11-10 Emergency [facility] [id number] 18:08:00 20:09:00 Nohemi Smith 350.1.13.10 [place] 4.2.7.2.686 [place] [id number] [facility] 2020-02-20 2020-02-20 Orders Doctor CARLOS 1.2.840.114 [id number] Univers 00:00:00 00:00:00 Only Unassigned, JUANY 350.1.13.10 ity of [place] [facility] 4.2.7.2.686 [place] [phone] [address] 2020-02-20 2020-02-20 Orders Doctor CARLOS 1.2.840.114 [id number] 00:00:00 00:00:00 Only Unassigned, JUANY 350.1.13.10 [place] [facility] 4.2.7.2.686 [id number] [facility] 2020-02-10 2020-02-10 Orders Doctor BREANNA 1.2.840.114 [id number] Univers 00:00:00 00:00:00 Only Unassigned, JUANY 350.1.13.10 ity of [place] [facility] 4.2.7.2.686 Matt as [phone] [address] 2020-02-10 2020-02-10 Orders Doctor BREANNA 1.2.840.114 [id number] 00:00:00 00:00:00 Only Unassigned, JUANY 350.1.13.10 [place] [facility] 4.2.7.2.686 [id number] [facility] 2020-01-31 2020-01-31 Orders Doctor BREANNA 1.2.840.114 [id number] [facility] 00:00:00 00:00:00 Only Unassigned, JUANY 350.1.13.10 ity of [place] [facility] 4.2.7.2.686 [place] as [phone] [address] 2020-01-31 2020-01-31 Orders Doctor BREANNA 1.2.840.114 [id number] 00:00:00 00:00:00 Only Unassigned, JUANY 350.1.13.10 [place] [facility] 4.2.7.2.686 [id number] [facility] 2020-01-29 2020-01-29 Telephone ALMA Williamson 1.2.840.114 [id number] [facility] 00:00:00 00:00:00 [facility] Medio 350.1.13.10 it y of Surgical 4.2.7.2.686 [place] as Specialti [phone] Ma dical [address] 2020-01-29 2020-01-29 Telephone ALMA Williamson 1.2.840.114 [id number] 00:00:00 00:00:00 [facility] 350.1.13.10 Surgical 4.2.7.2.686 Specialti [phone] [address] 2020-01-28 2020-01-28 Telephone Teri [facility] 1.2.840.114 [id number] Univers 00:00:00 00:00:00 [facility] 350.1.13.10 it y of Surgical 4.2.7.2.686 [place] as Specialti [phone] Ma dical es 198 [facility] 2020-01-28 2020-01-28 Telephone Teri [facility] 1.2.840.114 [id number] 00:00:00 00:00:00 [facility] 350.1.13.10 Surgical 4.2.7.2.686 Specialti [phone] es [address] [place] 2019-12-26 2019-12-26 Telephone Teri [facility] 1.2.840.114 [id number] Univers 00:00:00 00:00:00 [facility] 350.1.13.10 it y of Surgical 4.2.7.2.686 [place] Specialti [phone] Ma dical es 198 [facility] 2019-12-26 2019-12-26 Telephone [facility] 1.2.840.114 [id number] [facility] 00:00:00 00:00:00 [facility] 350.1.13.10 it y of Surgical 4.2.7.2.686 Matt as Specialti [phone] Ma dictrini es 198 [facility] 2019-12-26 2019-12-26 Winona [facility] 1.2.840.114 [id number] 00:00:00 00:00:00 [facility] 350.1.13.10 Surgical 4.2.7.2.686 Specialti [phone] es [address] [place] 2019-12-26 2019-12-26 Winona Teri [facility] 1.2.840.114 [id number] 00:00:00 00:00:00 [facility] 350.1.13.10 Surgical 4.2.7.2.686 Specialti [phone] es 198 [place] 2019-12-16 2019-12-17 Office Teri [facility] 1.2.993.159 [id number] Univers 16:15:48 10:13:00 Visit [facility] 350.1.13.10 it y of Surgical 4.2.7.2.686 Matt as Specialti [phone] Ma dical es 198 [facility] 2019-12-16 2019-12-17 Office [facility] [id number] 16:15:48 10:13:00 Visit Anton Bedolla 350.1.13.10 Surgical 4.2.7.2.686 Specialti [phone] es 198 [place] 2019-12-16 2019-12-16 Outpatient R [facility] [id number] Univers 16:34:01 23:59:00 MAIA ity of [facility] 2019-12-16 2019-12-16 [facility] 1.2.840.114 [id number] Univers 16:34:00 23:59:00 Encounter Maia Nation [facility] 350.1.13.10 ity of Surgical 4.2.7.2.686 Matt as Specialti [phone] Ma dical es 809 [facility] 2019-12-16 2019-12-16 Orders Doctor BREANNA 1.2.840.114 [id number] Univers 00:00:00 00:00:00 Only Unassigned, JUANY 350.1.13.10 ity of [place] [facility] 4.2.7.2.686 Matt as [phone] [address] Results Test Description Test Time Test Comments Results Result Comments Source PAP TEST, THINPREP, IMAGED 2022-12-23 22:52:12 Test Item Value Reference Range Interpretation Comme nts SOURCE: (test code = 8001) Cervical SLIDES: (test code = 8011) 2 LMP: (test code = 8021) NOT GIVEN SPECIMEN ADEQUACY: (test (NOTE) Sa tisfactory for evaluation. code = 19215) Endocervical cells/transform ation zone component prese nt. INTERPRETATION: (test code = NILM/NO EPITH. 50384) ABNORMALITY;SEE BELOW ------ NEGATIVE FOR INTRAEPITHELIAL LESION OR MALIGNANCY Reactive cellular change s present (NILM).-------- -- OTHER COMMENTS: (test code = (NOTE) Glacial acetic acid added due 8081) to blood/mucus in specimen. HAND LENS POLISHER: (test code Kristina Duenas = 8101) QC TECHNOLOGIST: (test code Ti = 8111) SOFY Briones(ASCP)IAC PATHOLOGIST INTERPRETATION Jem Hawkins BY: (test code = 8122) LOCATION: (test code = (NOTE) Speci mens processed and [address]) interpreted at [facility], [address] [place] [address], [place] [address], Phone: , CLIA: [id number] CPT: (test code = 8140) (NOTE) 8817 5, 74118 UNLESS OTHERWISE INDICATED, COMP UTER AIDED AND CYTOTECHNOLOGIS T SCREENING PERFORMED. The Pap test is a screening test with an inherent, but l ow probability of error. Your patient should be reminded to consult you immediately if she experiences any suspicious signs or symptoms, regar dless of her Pap test result . An alternate report format c ontaining images or conso lidated prior Pap history is available as applicable. CT/NG, NAAT, [id number] 19:38:21 Test Item Value Reference Range Interpretation Comments CHLAMYDIA, NAAT, NEGATIVE NEGATIVE Testing is performed with URINE (test code Tanja ROSA 6800/8800 = 21556) systems usingre al-time polymerase salvador n reaction (PCR) method. A negative result does not exclude low level infection , specimensamplin g error, or collection erro r. GONORRHEA, NAAT, NEGATIVE NEGATIVE Testing is performed with URINE (test code Tanja ROSA 6800/8800 = 22291) systems usingre al-time polymerase salvador n reaction (PCR) method. A negative result does not exclude low level infection , specimensamplin g error, or collection erro r. HPV HIGH RISK WITH GENOTYPE, [id number] 16:46:52 Test Item Value Reference Range Interpretation Comments HPV HIGH RISK INTERP NEGATIVE NEGATIVE (test code = 81744) HPV 16 (test code = NEGATIVE 13571) HPV 18 (test code = NEGATIVE 68776) HPV, HR, OTHER NEGATIVE Testing meth odology is GENOTYPES (test code real-ti me PCR utilizing = 01627) hydrolysis prob es with the [employer] Rosa 4800 system. The génesis t individually de tects genotypes 16 an d 18, as well as the oth er 12 high risk types (31,33,35,39,45 ,51,52,56 ,58,59,66,68). The expected result is negative. A neg ative result does not rule out the presence of HPV not included in the genotype set, a low leve l of infection or s pecimen sampling error. [facility] has important p athology staff changes e ffective 11/30/2022. New pathology staff will provide uninter rupted, excellent patie nt care and clinical consultation. S ee URL: [email or web address] /[email or web address] y-[email or web address]. UNLESS OTHERWISE INDICATED, ALL TESTING PERFORMED AT [facility] [employer] [address] [place] [address] 4 LABORATORY DIRE CTOR: DEVIN FORD M.D. [place] NUMBER [id number] [facility] [place] [place] [id number] VAGINAL PATHOGENS DNA [id number] 15:21:32 Test Item Value Reference Range Interpretation Comments MARIYA SPECIES NEGATIVE NEGATIVE (test code = ) G. VAGINALIS POSITIVE NEGATIVE A (test code = ) T. VAGINALIS NEGATIVE NEGATIVE Note: The BD A ffirm VPIII (test code = Microbial Ident ification ) Testis a DNA pr obe test intended for us e in the detectionand id entification of Mariya spec ies, Gardnerellavagi nalis and Trichomonas vag inalis nucleic acid. HIV 1/2 4TH GEN, RFLX [id number] 04:19:46 Test Item Value Reference Range Interpretation Comments HIV 1/2 4TH GEN, RFLX CONF (test NON-REACTIVE NON-REACTIVE code = 3514) [id number] 03:59:02 Test Item Value Reference Range Interpretation Comments RPR RESULT (test NON-REACTIVE NON-REACTIVE code = 3501) RPR TITER (test NOT INDIC. NOT INDIC. [facility] has important code = 3500) TITER pathology staff changes effective 11/30. New benny gy staff will provide uninterrupted, excellent patie nt care and clinical consultation. S ee URL: [email or web address]. UNLESS OTHERWISE INDIC ATED, ALL TESTING PER FORMED AT [facility], [facility]. [address] [place] [id number] LABORATOR Y DIRECTOR: Ronal SOTO EVA NUMBER [id number] CAP ACCREDITATION N O. [id number] HEPATIC FUNCTION PANEL (51770) (ALB,T.PRO,BILI T,BU/BC,ALT,AST,ALK PHOS) 2021-06-18 20:35:07 Test Item Value Reference Range Interpretation Comments TOTAL BILI (test code = 4798657817) 0.3 mg/dL 0.1-1.1 BILI UNCON (test code = 1246799904) 0.3 mg/dL 0.1-1.1 BILI CONJ (test code = 4967821060) 0.0 mg/dL 0.0-0.3 T PROTEIN (test code = 2616595838) 7.6 g/dL 6.3-8.2 ALBUMIN (test code = 1929443939) 4.3 g/dL 3.5-5.0 ALK PHOS (test code = 0285613197) 77 U/L 34-122 ALTv (test code = 1742-6) 42 U/L 5-35 H AST(SGOT) (test code = 9701623740) 33 U/L 13-40 Lab Interpretation (test code = Abnormal 58303-4) [facility] (50931[facility] (ALB,T.PRO,BILI T,BU/BC,ALT,AST,ALK PHOS)2021-06-18 20:35:07 Test Item Value Reference Range Interpretation Comments TOTAL BILI (test code = 9166765101) 0.3 mg/dL 0.1-1.1 BILI UNCON (test code = 8609630431) 0.3 mg/dL 0.1-1.1 BILI CONJ (test code = 7381044440) 0.0 mg/dL 0.0-0.3 T PROTEIN (test code = 8817007619) 7.6 g/dL 6.3-8.2 ALBUMIN (test code = 8474009040) 4.3 g/dL 3.5-5.0 ALK PHOS (test code = 1684515619) 77 U/L 34-122 ALTv (test code = 1742-6) 42 U/L 5-35 H AST(SGOT) (test code = 2875216660) 33 U/L 13-40 Lab Interpretation (test code = Abnormal 87532-8) [facility] METABOLIC PANEL (NA, K, CL, CO2, GLUCOSE, BUN, CREATININE, CA)2021-06-18 20:34:47 Test Item Value Reference Range Interpretation Comments NA (test code = 136 mmol/L 135-145 0182394068) K (test code = 4.3 mmol/L 3.5-5.0 8016771497) CL (test code = 105 mmol/L 98-108 9414350948) CO2 TOTAL (test code = 24 mmol/L 23-31 0655288377) AGAP (test code = 2-16 2767472980) BUN (test code = 9 mg/dL 7-23 3440228996) GLUCOSE (test code = 112 mg/dL 70-110 H 7685853679) CREATININE (test code = 0.80 mg/dL 0.50-1.04 6739057209) CALCIUM (test code = 8.8 mg/dL 8.6-10.6 6725347308) eGFR (test code = mL/min/1.73m2 0145816719) ISAMAR (test code = ISAMAR) Association of [...] tests). Lab Interpretation Abnormal (test code = 65998-5) [facility] HospitalLIPASE2021-09-17 20:34:47 Test Item Value Reference Range Interpretation Comments LIPASE (test code = 7266912434) 74 U/L 0-220 Lab Interpretation (test code = Normal 47195-0) [facility] HospitalBASI METABOLIC PANEL (NA, K, CL, CO2, GLUCOSE, BUN, CREATININE, CA)2021-06-18 20:34:47 Test Item Value Reference Range Interpretation Comments NA (test code = 136 mmol/L 135-145 3858463666) K (test code = 4.3 mmol/L 3.5-5.0 9201577519) CL (test code = 105 mmol/L 98-108 9112331063) CO2 TOTAL (test code = 24 mmol/L 23-31 6775845880) AGAP (test code = 2-16 3015717340) BUN (test code = 9 mg/dL 7-23 0210256376) GLUCOSE (test code = 112 mg/dL 70-110 H 5665793162) CREATININE (test code = 0.80 mg/dL 0.50-1.04 8484006533) CALCIUM (test code = 8.8 mg/dL 8.6-10.6 8957568552) eGFR (test code = mL/min/1.73m2 0162352957) ISAMAR (test code = ISAMAR) Association of [...] tests). Lab Interpretation Abnormal (test code = 41085-2) [facility]ASE2021-[facility]-17 20:34:47 Test Item Value Reference Range Interpretation Comments LIPASE (test code = 3526462379) 74 U/L 0-220 Lab Interpretation (test code = Normal 30190-1) [facility] HospitalCBC WITH [id number] 20:27:26 Test Item Value Reference Range Interpretation Comments WBC (test code = See_Comment [Automated message] 6690-2) The system [employer] generated this result transmitted ref erence range: 4.30 - 1 1.10 10*3/?L. The re ference range was not u sed to interpret this result as normal/abnor mal. RBC (test code = See_Comment [Automated message] 789-8) The system [employer] generated this result transmitted ref erence range: [...] RDW-SD (test code 46.2 fL 39.0-49.9 = 50151-0) RDW-CV (test code 14.2 % 12.0-15.5 = 788-0) PLT (test code = See_Comment [Automated message] 777-3) The system [employer] generated this result transmitted ref erence range: 166 - 35 8 10*3/?L. The re ference range was not u sed to interpret this result as normal/abnor mal. MPV (test code = 11.3 fL 9.5-12.9 54593-1) NRBC/100 WBC (test See_Comment [Automat ed message] code = 0585230597) The syste m which generated this result transmitted ref erence range: 0.0 - 10 .0 /100 WBCs. The refer ence range was not u sed to interpret this result as normal/abnor mal. NRBC x10^3 (test <0.01 See_Comment [Automated message] code = 7766541320) The syste m which generated this result transmitted ref erence range: 10*3/?L. The reference range was not used to interpr et this result as normal/abnormal . GRAN MAT (NEUT) % 65.2 % (test code = 770-8) IMM GRAN % (test 0.20 % code = 5445098467) LYMPH % (test code 24.7 % = 736-9) MONO % (test code 6.4 % = 5905-5) EOS % (test code = 2.6 % 713-8) BASO % (test code 0.9 % = 706-2) GRAN MAT 3.80 10*3/uL 1.88-7.09 x10^3(ANC) (test code = 9142524208) IMM GRAN x10^3 <0.03 0.00-0.06 (test code = 6076419271) LYMPH x10^3 (test 1.44 10*3/uL 1.32-3.29 code = 731-0) MONO x10^3 (test 0.37 10*3/uL 0.33-0.92 code = 742-7) EOS x10^3 (test 0.15 10*3/uL 0.03-0.39 code = 711-2) BASO x10^3 (test 0.05 10*3/uL 0.01-0.07 code = 704-7) [facility] WITH [id number] 20:27:26 Test Item Value Reference Range Interpretation Comments WBC (test code = See_Comment [Automated message] 3152-2) The system [employer] generated this result transmitted ref erence range: 4.30 - 1 1.10 10*3/?L. The re ference range was not u sed to interpret this result as normal/abnor mal. RBC (test code = See_Comment [Automated message] 709-8) The system [employer] generated this result transmitted ref erence range: [...] RDW-SD (test code 46.2 fL 39.0-49.9 = 09505-1) RDW-CV (test code 14.2 % 12.0-15.5 = 788-0) PLT (test code = See_Comment [Automated message] 267-3) The system [employer] generated this result transmitted ref erence range: 166 - 35 8 10*3/?L. The re ference range was not u sed to interpret this result as normal/abnor mal. MPV (test code = 11.3 fL 9.5-12.9 35289-4) NRBC/100 WBC (test See_Comment [Automat ed message] code = 1328296069) The syste m which generated this result transmitted ref erence range: 0.0 - 10 .0 /100 WBCs. The refer ence range was not u sed to interpret this result as normal/abnor mal. NRBC x10^3 (test <0.01 See_Comment [Automated message] code = 9566012598) The syste m which generated this result transmitted ref erence range: 10*3/?L. The reference range was not used to interpr et this result as normal/abnormal . GRAN MAT (NEUT) % 65.2 % (test code = 770-8) IMM GRAN % (test 0.20 % code = 6968828005) LYMPH % (test code 24.7 % = 736-9) MONO % (test code 6.4 % = 5905-5) EOS % (test code = 2.6 % 713-8) BASO % (test code 0.9 % = 706-2) GRAN MAT 3.80 10*3/uL 1.88-7.09 x10^3(ANC) (test code = 3376266372) IMM GRAN x10^3 <0.03 0.00-0.06 (test code = 9833131520) LYMPH x10^3 (test 1.44 10*3/uL 1.32-3.29 code = 731-0) MONO x10^3 (test 0.37 10*3/uL 0.33-0.92 code = 742-7) EOS x10^3 (test 0.15 10*3/uL 0.03-0.39 code = 711-2) BASO x10^3 (test 0.05 10*3/uL 0.01-0.07 code = 704-7) [facility] HospitalPOLA [id number] 20:10:00 Test Item Value Reference Range Interpretation Comments POCT PREG (test code = 1605) negative On board controls acceptable with C present Line (test code = 3574) Lab Interpretation (test code = Normal 39024-8) [facility] [id number] 20:10:00 Test Item Value Reference Range Interpretation Comments POCT PREG (test code = 1605) negative On board controls acceptable with C present Line (test code = 3574) Lab Interpretation (test code = Normal 76238-0) [facility] [id number] 14:12:00 Test Item Value Reference Range Interpretation Comments POCT PREG (test code Negative = 1605) On board controls Yes acceptable with C Line (test code = 3574) POCT PREG LOT # (test code = 3575) POCT PREG TEST DATE (test code = 3576) ISAMAR (test code = ISAMAR) accurate development and interpretation of all internal controls [facility] [id number] 14:12:00 Test Item Value Reference Range Interpretation Comments POCT PREG (test code Negative = 1605) On board controls Yes acceptable with C Line (test code = 3574) POCT PREG LOT # (test code = 3575) POCT PREG TEST DATE (test code = 3576) ISAMAR (test code = ISAMAR) accurate development and interpretation of all internal controls [facility] [id number] 19:07:00 Test Item Value Reference Range Interpretation Comments POCT PREG (test code = 1605) Negative On board controls acceptable with C Yes Line (test code = 3574) POCT PREG LOT # (test code = 3575) POCT PREG TEST DATE (test code = 3576) Lab Interpretation (test code = Normal 00816-9) [facility] [id number] 19:07:00 Test Item Value Reference Range Interpretation Comments POCT PREG (test code = 1605) Negative On board controls acceptable with C Yes Line (test code = 3574) POCT PREG LOT # (test code = 3575) POCT PREG TEST DATE (test code = 3576) Lab Interpretation (test code = Normal 19388-7) [facility] [id number] 19:07:00 Test Item Value Reference Range Interpretation Comments POCT PREG (test code = 1605) Negative On board controls acceptable with C Yes Line (test code = 3574) POCT PREG LOT # (test code = 3575) POCT PREG TEST DATE (test code = 3576) Lab Interpretation (test code = Normal 45275-7) [facility] HospitalComplete Metabolic [id number] 05:20:14 Test Item Value Reference Range Interpretation Comments NA (test code = 139 mmol/L 135-145 5006437893) K (test code = 2.8 mmol/L 3.5-5.0 LL 6202440396) CL (test code = 113 mmol/L 98-108 H 4391903992) CO2 TOTAL (test code = 21 mmol/L 23-31 L 5462049199) AGAP (test code = 2-16 0049356287) BUN (test code = 10 mg/dL 7-23 6921837787) GLUCOSE (test code = 68 mg/dL 70-110 L 8600888771) CREATININE (test code = 0.47 mg/dL 0.50-1.04 L 5306937683) TOTAL BILI (test code = 0.3 mg/dL 0.1-1.1 5752861015) CALCIUM (test code = 6.7 mg/dL 8.6-10.6 L 1805371646) T PROTEIN (test code = 5.1 g/dL 6.3-8.2 L 6903099549) ALBUMIN (test code = 2.8 g/dL 3.5-5.0 L 2546151720) ALK PHOS (test code = 54 U/L 34-122 2209126802) ALTv (test code = 10 U/L 5-35 1742-6) AST(SGOT) (test code = 17 U/L 13-40 9131959930) eGFR (test code = mL/min/1.73m2 6503941572) ISAMAR (test code = ISAMAR) Association of [...] tests). Lab Interpretation Abnormal (test code = 85226-6) [facility] with [id number] 04:44:04 Test Item Value Reference Range Interpretation Comments WBC (test code = See_Comment [Automated message] 6690-2) The system [employer] generated this result transmitted ref erence range: 4.30 - 1 1.10 10*3/?L. The re ference range was not u sed to interpret this result as normal/abnor mal. RBC (test code = See_Comment [Automated message] 789-8) The system [employer] generated this result transmitted ref erence range: [...] RDW-SD (test code 45.1 fL 39.0-49.9 = 31701-5) RDW-CV (test code 13.8 % 12.0-15.5 = 788-0) PLT (test code = See_Comment [Automated message] 777-3) The system whic h generated this result transmitted ref erence range: 166 - 35 8 10*3/?L. The re ference range was not u sed to interpret this result as normal/abnor mal. MPV (test code = 12.0 fL 9.5-12.9 69914-5) NRBC/100 WBC (test See_Comment [Automat ed message] code = 8012422529) The syste m which generated this result transmitted ref erence range: 0.0 - 10 .0 /100 WBCs. The refer ence range was not u sed to interpret this result as normal/abnor mal. NRBC x10^3 (test <0.01 See_Comment [Automated message] code = 6942594790) The syste m which generated this result transmitted ref erence range: 10*3/?L. The reference range was not used to interpr et this result as normal/abnormal . GRAN MAT (NEUT) % 50.4 % (test code = 770-8) IMM GRAN % (test 0.50 % code = 3732836697) LYMPH % (test code 37.3 % = 736-9) MONO % (test code 7.2 % = 5905-5) EOS % (test code = 3.6 % 713-8) BASO % (test code 1.0 % = 706-2) GRAN MAT 2.94 10*3/uL 1.88-7.09 x10^3(ANC) (test code = 7481848380) IMM GRAN x10^3 0.03 10*3/uL 0.00-0.06 (test code = 6176469638) LYMPH x10^3 (test 2.18 10*3/uL 1.32-3.29 code = 731-0) MONO x10^3 (test 0.42 10*3/uL 0.33-0.92 code = 742-7) EOS x10^3 (test 0.21 10*3/uL 0.03-0.39 code = 711-2) BASO x10^3 (test 0.06 10*3/uL 0.01-0.07 code = 704-7) [facility] HospitalUrinalysis2021-05-24 04:29:33 Test Item Value Reference Range Interpretation Comments APPEARANCE (test code = Hazy Clear A 1177856332) COLOR (test code = Yellow Yellow 2371048359) PH (test code = 4.8-8.0 1650652662) SP GRAVITY (test code = 1.003-1.030 8641345000) GLU U QUAL (test code = Normal Normal 9692931685) BLOOD (test code = Negative Negative 9053941627) KETONES (test code = Negative Negative 4299259249) PROTEIN (test code = 30 mg/dL Negative A 2887-8) UROBILIN (test code = 2.0 mg/dL Normal A 6566674035) BILIRUBIN (test code = Negative Negative 7003402951) NITRITE (test code = Negative Negative 5139360312) LEUK SOULEYMANE (test code = Negative Negative 2435061694) RBC/HPF (test code = <1 See_Comment [Autom ated message] 6291376048) The system [employer] generated this result transmit [place] reference range : 0 - 3 HPF. The refe rence range was not u sed to interpret th is result as normal/abnormal . WBC/HPF (test code = <1 See_Comment [Autom ated message] 8512822703) The system [employer] generated this result transmit [place] reference range : 0 - 5 HPF. The refe rence range was not u sed to interpret th is result as normal/abnormal . BACTERIA (test code = Negative Negative 0833151198) MUCOUS (test code = Moderate Negative LPF A 0757253336) AMORPHOUS (test code = Rare Rare HPF 9634658544) SQ EPITH (test code = HPF 4578786072) Lab Interpretation (test Abnormal code = 38819-1) [facility] HospitalLipase, [id number] 04:21:21 Test Item Value Reference Range Interpretation Comments LIPASE (test code = 9879350414) 69 U/L 0-220 Lab Interpretation (test code = Normal 70800-8) [facility] HospitalPOCT [id number] 03:30:00 Test Item Value Reference Range Interpretation Comments POCT PREG (test code = 1605) negative On board controls acceptable with C present Line (test code = 3574) Lab Interpretation (test code = Normal 01352-5) [facility]. METABOLIC PANEL (21883)2021-01-19 21:36:57 Test Item Value Reference Range Interpretation Comments NA (test code = 139 mmol/L 135-145 5621718778) K (test code = 4.2 mmol/L 3.5-5.0 4360120305) CL (test code = 106 mmol/L 98-108 8470536814) CO2 TOTAL (test code = 24 mmol/L 23-31 4729681497) AGAP (test code = 2-16 2932526478) BUN (test code = 20 mg/dL 7-23 5133113133) GLUCOSE (test code = 89 mg/dL 70-110 1210709858) CREATININE (test code = 0.73 mg/dL 0.50-1.04 2594314433) TOTAL BILI (test code = 0.6 mg/dL 0.1-1.4 6974154715) CALCIUM (test code = 9.0 mg/dL 8.6-10.6 9861489078) T PROTEIN (test code = 7.5 g/dL 6.3-8.2 7461995961) ALBUMIN (test code = 4.5 g/dL 3.5-5.0 2211826212) ALK PHOS (test code = 87 U/L 34-122 8790876998) ALTv (test code = 24 U/L 5-35 1742-6) AST(SGOT) (test code = 42 U/L 13-40 H 7805190544) eGFR (test code = mL/min/1.73m2 6337977282) ISAMAR (test code = ISAMAR) Association of [...] tests). Lab Interpretation Abnormal (test code = 08956-8) [facility] HospitalURINALYSIS2021-04-20 21:25:51 Test Item Value Reference Range Interpretation Comments APPEARANCE (test code = Hazy Clear A 4984291896) COLOR (test code = Yellow Yellow 6987083628) PH (test code = 4.8-8.0 5327799294) SP GRAVITY (test code = 1.003-1.030 H 5404285869) GLU U QUAL (test code = Normal Normal 3878679037) BLOOD (test code = Negative Negative 0764313390) KETONES (test code = 5 mg/dL Negative A 8224798969) PROTEIN (test code = 30 mg/dL Negative A 2887-8) UROBILIN (test code = 2.0 mg/dL Normal A 4271785368) BILIRUBIN (test code = Negative Negative 3323721806) NITRITE (test code = Negative Negative 3243985110) LEUK SOULEYMANE (test code = Negative Negative 3459917718) RBC/HPF (test code = See_Comment H [Autom ated message] 0598748845) The system [employer] generated this result transmit [place] reference range : 0 - 3 HPF. The refe rence range was not u sed to interpret th is result as normal/abnormal . WBC/HPF (test code = See_Comment [Autom ated message] 3602220113) The system [employer] generated this result transmit [place] reference range : 0 - 5 HPF. The refe rence range was not u sed to interpret th is result as normal/abnormal . BACTERIA (test code = Negative Negative 2583061875) MUCOUS (test code = Marked Negative LPF A 7927891387) SQ EPITH (test code = HPF 5146925707) Lab Interpretation (test Abnormal code = 38841-0) [facility] HospitalCT ABDOMEN PELVIS W [id number] 21:15:43CT Abdomen and Pelvis with intravenous contrast. [...] a large 5.5 cm size partially calcified uterinefibroid.[facility] WITH DIFF 2021-01-19 21:09:09 Test Item Value Reference Range Interpretation Comments WBC (test code = See_Comment [Automated message] 6690-2) The system [employer] generated this result transmitted ref erence range: 4.30 - 1 1.10 10*3/?L. The re ference range was not u sed to interpret this result as normal/abnor mal. RBC (test code = See_Comment [Automated message] 789-8) The system [employer] generated this result transmitted ref erence range: [...] RDW-SD (test code 45.5 fL 39.0-49.9 = 26807-8) RDW-CV (test code 14.0 % 12.0-15.5 = 788-0) PLT (test code = See_Comment [Automated message] 777-3) The system [employer] generated this result transmitted ref erence range: 166 - 35 8 10*3/?L. The re ference range was not u sed to interpret this result as normal/abnor mal. MPV (test code = 11.4 fL 9.5-12.9 27502-1) NRBC/100 WBC (test See_Comment [Automat ed message] code = 7275533150) The syste m which generated this result transmitted ref erence range: 0.0 - 10 .0 /100 WBCs. The refer ence range was not u sed to interpret this result as normal/abnor mal. NRBC x10^3 (test <0.01 See_Comment [Automated message] code = 3116075399) The syste m which generated this result transmitted ref erence range: 10*3/?L. The reference range was not used to interpr et this result as normal/abnormal . GRAN MAT (NEUT) % 68.5 % (test code = 770-8) IMM GRAN % (test 0.40 % code = 9811180792) LYMPH % (test code 23.1 % = 736-9) MONO % (test code 6.1 % = 5905-5) EOS % (test code = 1.2 % 713-8) BASO % (test code 0.7 % = 706-2) GRAN MAT 5.18 10*3/uL 1.88-7.09 x10^3(ANC) (test code = 3500251583) IMM GRAN x10^3 0.03 10*3/uL 0.00-0.06 (test code = 3507506656) LYMPH x10^3 (test 1.75 10*3/uL 1.32-3.29 code = 731-0) MONO x10^3 (test 0.46 10*3/uL 0.33-0.92 code = 742-7) EOS x10^3 (test 0.09 10*3/uL 0.03-0.39 code = 711-2) BASO x10^3 (test 0.05 10*3/uL 0.01-0.07 code = 704-7) [facility] HospitalPOCT [id number] 20:54:00 Test Item Value Reference Range Interpretation Comments POCT PREG (test code = 1605) neg On board controls acceptable with yes C Line (test code = 3574) POCT PREG LOT # (test code = 3575) [id number] POCT PREG TEST DATE (test 08/31/2022 code = 3576) Lab Interpretation (test code = Normal 70355-0) [facility] HospitalURINALYSIS2021-02-10 01:31:00 Test Item Value Reference Range Interpretation Comments APPEARANCE (test code = Clear Clear 0238893330) COLOR (test code = Yellow Yellow 4435537983) PH (test code = 4.8-8.0 3856869035) SP GRAVITY (test code = 1.003-1.030 5600928567) GLU U QUAL (test code = Normal Normal 5757799002) BLOOD (test code = Negative Negative 5871737432) KETONES (test code = 5 mg/dL Negative A 2557629188) PROTEIN (test code = Negative Negative 2887-8) UROBILIN (test code = 2.0 mg/dL Normal A 9597364108) BILIRUBIN (test code = Negative Negative 5208837234) NITRITE (test code = Negative Negative 0883421700) LEUK SOULEYMANE (test code = Negative Negative 8966514958) RBC/HPF (test code = See_Comment [Autom ated message] 8572995401) The system [employer] generated this result transmit [place] reference range : 0 - 3 HPF. The refe rence range was not u sed to interpret th is result as normal/abnormal . WBC/HPF (test code = See_Comment [Autom ated message] 6313274802) The system [employer] generated this result transmit [place] reference range : 0 - 5 HPF. The refe rence range was not u sed to interpret th is result as normal/abnormal . BACTERIA (test code = Negative Negative 7548565267) MUCOUS (test code = Slight Negative LPF A 4177281513) SQ EPITH (test code = <1 HPF 1032341299) Lab Interpretation (test Abnormal code = 98529-0) [facility] HospitalXR KNEE <3 VW [id number] 21:49:55 Narrowing on right knee 4mm, no fractureUnNacogdoches Memorial Hospital"
[2023-07-26 21:27] LABS: Absolute Lymphocytes (CBC) 2.2 K/uL (0.7-4.9); MPV 8.8 fL (7.6-11.3); Platelets 326 thou/uL (152-406); RBC Red Blood Cell Count 3.96 M/uL (3.86-4.86)
--- NOTE | 2023-07-26 22:31 | RAD REPORT ---
EXAM DESCRIPTION: US - Transvaginal Study Probe - 07/26/2023 10:06 pm CLINICAL HISTORY: PAIN Pelvic pain. COMPARISON: Transvaginal Study Probe dated 12/18/2022 FINDINGS: There is a large uterine fibroid in the fundal region measuring 3.7 x 3.7 x 3.4 cm. Small intramural fibroid is seen anterior mid uterus measuring 8 x 7 mm.. The endometrial stripe measures 8 mm, normal. Left ovary measures 3.7 x 2.4 x 2.4 cm with normal blood flow. Right ovary is obscured by bowel gas. No significant pelvic ascites. IMPRESSION: Large 3.7 cm fundal uterine fibroid. Right ovary not well visualized due bowel gas.
[2023-07-26 22:43] LABS: Potassium 3.6 mEq/L (3.5-5.1)
--- NOTE | 2023-07-26 23:04 | ER ---
Nurse's Notes [facility] Name: Kristina Christensen Age: 38 yrs Sex: Female : 1985 Arrival Date: 07/26/2023 Time: 20:25 Bed 5 Private MD: Diagnosis: Leiomyoma of uterus, unspecified;Abnormal uterine and vaginal bleeding, unspecified Presentation: 07/26 21:05 Chief complaint: Patient states: vaginal bleeding X2 months with lower abdominal pain. cm10 Coronavirus screen: Vaccine status: Patient reports receiving the 2nd dose of the covid vaccine. Client denies travel out of the [place] in the last 14 days. Ebola Screen: Patient denies travel to an Ebola-affected area in the 21 days before illness onset. No symptoms or risks identified at this time. Initial Sepsis Screen: Does the patient meet any 2 criteria? No. Patient's initial sepsis screen is negative. Does the patient have a suspected source of infection? No. Patient's initial sepsis screen is negative. Risk Assessment: Do you want to hurt yourself or someone else? Patient reports no desire to harm self or others. Onset of symptoms was July 26, 2023. 21:05 Method Of Arrival: Ambulatory cm10 21:05 Acuity: GAURAV 3 cm10 Historical: - Allergies: 21:06 tramadol; cm10 - PMHx: 21:06 Cancer; remission from cervical cancer for 3.5 years; Cerebrovascular accident; cm10 Crohn's; Hypertension; HYPOGLYCEMIA; Migraine; Seizures; - PSHx: 21:06 Ligation of fallopian tube; cm10 - Immunization history:: Adult Immunizations unknown. - Social history:: Smoking status: Reported history of juuling and/or vaping. Screenin:15 [facility] ED Fall Risk Assessment (Adult) History of falling in the last 3 months, rv including since admission No falls in past 3 months (0 pts) Score/Fall Risk Level 0 - 2 = Low Risk Oriented to surroundings, Maintained a safe environment, Educated pt \T\ family on fall prevention, incl call for assistance when getting out of bed, Assessed \T\ reinforced patient's understanding of fall precautions, Provided non-skid footwear, Hourly rounding (assess needs \T\ fall precautionary measures) done, Used ambulatory aids as needed (educated on \T\ assisted with), Used gait belt as appropriate. Abuse screen: Denies threats or abuse. Denies injuries from another. Nutritional screening: No deficits noted. Tuberculosis screening: No symptoms or risk factors identified. Assessment: 21:15 General: Appears comfortable, Behavior is calm, cooperative. Pain: Complains of pain in rv abdomen. Neuro: Level of Consciousness is awake, alert, obeys commands, Oriented to person, place, time, situation. Cardiovascular: Capillary refill < 3 seconds Patient's skin is warm and dry. Respiratory: Airway is patent Respiratory effort is even, unlabored. GI: Bowel sounds present X 4 quads. Abd is soft and non tender X 4 quads. : Reports vaginal bleeding that is with clots, heavy flow. Vital Signs: 21:05 BP 148 / 92; Pulse 80; Resp 16; Temp 98.4(TE); Pulse Ox 100% ; Weight 101.6 kg; Height cm10 5 ft. 4 in. ; Pain 9/10; 23:09 BP 138 / 95; Pulse 80; Resp 16; Temp 98; Pulse Ox 100% on R/A; rv 21:05 Body Mass Index 38.45 (101.60 kg, 162.56 cm) cm10 21:05 Pain Scale: Adult cm10 Lexi Coma Score: 23:09 Eye Response: spontaneous(4). Motor Response: obeys commands(6). Verbal Response: rv oriented(5). Total: 15. ED Course: 20:27 Patient arrived in ED. mr 20:29 Marck DestinyMARYJO [facility]. kb 20:29 Ventura Stockton MD is Attending Physician. kb 21:05 Emery Sprague RN is Primary Nurse. rv 21:06 Triage completed. cm10 21:06 Arm band placed on Patient placed in an exam room, on a stretcher. cm10 21:15 Patient has correct armband on for positive identification. Client placed on continuous rv cardiac and pulse oximetry monitoring. NIBP monitoring applied. 21:15 No provider procedures requiring assistance completed. Inserted saline lock: 20 gauge rv in right antecubital area, using aseptic technique. Blood collected. 22:08 US Transvaginal Study (Probe) In Process Unspecified. EDMS 23:10 IV discontinued, intact, bleeding controlled, No redness/swelling at site. Pressure rv dressing applied. Administered Medications: No medications were administered Medication: 21:15 VIS not applicable for this client. rv Outcome: 23:03 Discharge ordered by MD. valle 23:10 Discharged to home ambulatory, with family, rv 23:10 Condition: good 23:10 Discharge instructions given to patient, Instructed on discharge instructions, follow up and referral plans. Demonstrated understanding of instructions, follow-up care, 23:10 Patient left the ED. rv Signatures: Dispatcher [employer] EDCT Destiny Acharya, REVIEW SPECIALIST-C REVIEW SPECIALIST-Mary Klein, Reg Reg mr Emery Sprague, RN RN Rita Gage RN RN cm10
--- NOTE | 2023-07-26 23:04 | EDPHYS ---
Physician Documentation [facility] Name: Kristina Christensen Age: 38 yrs Sex: Female : 1985 Arrival Date: 07/26/2023 Time: 20:25 Bed 5 Private MD: ED Physician Ventura Stockton HPI: 07/26 22:05 This 38 yrs old Black Female presents to ER via Ambulatory with complaints of Abdominal kb Pain, Vaginal Bleeding. 22:05 Patient is a 38-year-old female who presents for vaginal bleeding for 2 months with kb lower abdominal pain. States bleeding and pain has been constant, pain is worse in the left pelvis area. Denies history of heavy or prolonged menses.. Historical: - Allergies: 21:06 tramadol; cm10 - PMHx: 21:06 Cancer; remission from cervical cancer for 3.5 years; Cerebrovascular accident; cm10 Crohn's; Hypertension; HYPOGLYCEMIA; Migraine; Seizures; - PSHx: 21:06 Ligation of fallopian tube; cm10 - Immunization history:: Adult Immunizations unknown. - Social history:: Smoking status: Reported history of juuling and/or vaping. ROS: 22:05 Constitutional: Negative for fever, chills, and weight loss, kb 22:05 Abdomen/GI: Positive for abdominal cramps, 22:05 : Positive for vaginal bleeding, 22:05 All other systems are negative, Exam: 22:05 Constitutional: This is a well developed, well nourished patient who is awake, alert, kb and in no acute distress. Head/Face: Normocephalic, atraumatic. ENT: Moist Mucous membranes Cardiovascular: Regular rate Respiratory: Respirations even and unlabored. No increased work of breathing. Talking in full sentences Skin: Warm, dry with normal turgor. Normal color. MS/ Extremity: Pulses equal, no cyanosis. Neurovascular intact. Full, normal range of motion. Neuro: Awake and alert, GCS 15, oriented to person, place, time, and situation. Moves all extremities. Normal gait. 22:05 Abdomen/GI: Inspection: abdomen appears normal, Bowel sounds: normal, Palpation: soft, in all quadrants, moderate abdominal tenderness, in the left lower quadrant, Vital Signs: 21:05 BP 148 / 92; Pulse 80; Resp 16; Temp 98.4(TE); Pulse Ox 100% ; Weight 101.6 kg; Height cm10 5 ft. 4 in. ; Pain 9/10; 23:09 BP 138 / 95; Pulse 80; Resp 16; Temp 98; Pulse Ox 100% on R/A; rv 21:05 Body Mass Index 38.45 (101.60 kg, 162.56 cm) cm10 21:05 Pain Scale: Adult cm10 Lexi Coma Score: 23:09 Eye Response: spontaneous(4). Motor Response: obeys commands(6). Verbal Response: rv oriented(5). Total: 15. MDM: 20:29 Patient medically screened. kb 22:06 Differential diagnosis: Menorrhagia, Ovarian Torsion, Ovarian cyst, fibroids. Data kb reviewed: vital signs, nurses notes. 23:02 Counseling: I had a detailed discussion with the patient and/or guardian regarding the kb historical points, exam findings, and any diagnostic results supporting the discharge/admit diagnosis, lab results, radiology results, the need for outpatient follow up, an OB/Gyne specialist, to return to the emergency department if symptoms worsen or persist or if there are any questions or concerns that arise at home. 07/26 20:55 Order name: CBC with Diff; Complete Time: 21:30 kb 07/26 20:55 Order name: Basic Metabolic Panel; Complete Time: 22:54 kb 07/26 20:55 Order name: US Transvaginal Study (Probe); Complete Time: 22:38 kb 07/26 20:55 Order name: IV Start; Complete Time: 21:15 kb 07/26 21:47 Order name: Misc. Order: RECOLLECT GREEN TOP; Complete Time: 21:51 rv1 Administered Medications: No medications were administered Disposition Summary: 07/26/23 23:03 Discharge Ordered Notes: Location: Home kb Condition: Stable kb Diagnosis - Leiomyoma of uterus, unspecified kb - Abnormal uterine and vaginal bleeding, unspecified kb Followup: kb - With: Emergency Department - When: As needed - Reason: Worsening of condition Followup: kb - With: Private Physician - When: 2 - 3 days - Reason: Recheck today's complaints, Continuance of care, Re-evaluation by your physician Discharge Instructions: - Discharge Summary Sheet kb - Uterine Fibroids, [id number] kb - Abnormal Uterine Bleeding, [id number] kb Forms: - Medication Reconciliation Form kb - Thank You Letter kb - Antibiotic Education kb - Prescription Opioid Use kb - Patient Portal Instructions kb - Leadership Thank You Letter kb Signatures: Dispatcher [employer] Destiny Child FNP-C FNP-Ckb Villegas, Rebecca rv1 Rita Cano RN RN cm10
[2023-07-27 16:13] VITALS: BP 138/95; TEMP 98; O2SAT 100
== END 2023-07-26 23:10 | disposition home or self-care (01) ==
LOC: ER 20:25
DX: D25.9 Leiomyoma of uterus, unspecified (principal); Z85.41 Personal history of malignant neoplasm of cervix uteri; Z88.5 Allergy status to narcotic agent
CPT/HCPCS: 36415; 76830; 80048; 85025

== ENCOUNTER → 2023-11-15 | Emergency (ER) | payer OTHER, SELFPAY ==
[~2023-11-15] MED LIST: ACETAMINOPHEN 500 MG TAB ONE; NA CHLORIDE 0.9% 1,000 ML ONE
--- OUTSIDE RECORDS SUMMARY | 2023-11-15 16:13 | XMS REPORT | Continuity of Care Document ---
Author Name Unknown Address [address] [facility] [address] [place] [address] [facility] thconnect Address [address] [facility] [address] [place] [address] Care Team Providers Care Stitchdowns Toe Former Name Role Phone TI [facility], [facility] Care Physician Unavailable [email or web address] Attending Clinician UnavailLUKE Galvan Attending Clinician Unavailable Luke Simmons Attending Clinician [phone] KEYSHA VIVEROS Attending Clinician Unavailable KEYSHA VIVEROS Attending Clinician Unavailable Doctor Unassigned, [place] Attending Clinician U Jose Schilling Attending Clinician Unavailable KARLEE GOMEZ Attending Clinician Unavailab Karlee Hope DO Attending Clinician [phone] Dinh PAC, Nohemi S Attending Clinician [phone] Mony Ortega RN Attending Clinician UnaTASHA Avila Attending Clinician Unavailable KILEY STROUD Attending Clinician Unavailable Tasha De Oliveira MD Attending Clinician [phone] Riri Cerda Attending Clinician [phone] Sam Dodson Attending Clinician [phone] Fredrick Mina DO Attending Clinician [phone] Anton Williamson MD Attending Clinician [phone] MAIA SHRESTHA Attending Clinician Unavailable Maia Sullivan S Attending Clinician [phone] [email or web address] Admitting Clinician Unavaila ble KNOW, DOES_NOT Admitting Clinician Unavailable Physician, No Primary or Family Admitting Clinic gamal Unavailable Payers Payer Name Policy Type Policy Number Effective Date Expirati on Date Source [facility] [id number] 2020 00:00:00 [place] [id number] 2019 00:00:00 MEDICAID SSI PENDING PENDING 2019 00:00:00 [facility] (MEDICAID HMO) [id number] 2016 00:00:00 2023 00:00:00 [employer] [id number] 2023 00:00:00 Problems Condition Name Condition Details Condition Category Status Onset Date Resolution Date Last Treatment Date Treating Clinician Comments Source Presence of 52 mg levonorges trel-relea sing intrauteri ne device (IUD) Presence of 52 mg levonorges trel-relea sing intrauteri ne device (IUD) Disease Active 03-29 00:00: 00 [facility] Prolapse of anterior vaginal wall Prolapse of anterior vaginal wall Disease Active 03-19 00:00: 00 [facility] Posterior vaginal wall prolapse Posterior vaginal wall prolapse Disease Active 03-19 00:00: 00 [facility] Constipati on, unspecifie d constipati on type Constipati on, unspecifie d constipati on type Disease Active 18 00:00: 00 [facility] Weakness Weakness Disease Active 06-03 00:00: 00 [facility] Morbid obesity with body mass index of 40.0-49.9 Morbid obesity with body mass index of 40.0-49.9 Disease Active 06-03 00:00: 00 [facility] Morbid obesity with body mass index of 40.0-49.9 Morbid obesity with body mass index of 40.0-49.9 Disease Active 06-03 00:00: 00 [facility] Cyst of right ovary Cyst of right ovary Disease Active 02-01 00:00: 00 [facility] History of cervical cancer History of cervical cancer Disease Active 02-01 00:00: 00 [facility] Moderate single current episode of major depressive disorder Moderate single current episode of major depressive disorder Disease Active 02-01 00:00: 00 [facility] Normal delivery Normal delivery Disease Active 03-04 00:00: 00 [facility] Allergies, Adverse Reactions, Alerts Allergy Name Allergy Type Status Severity Reaction(s) Onset Date Inactive Date Treating Clinician Comments Source tramadol DA Active U 10-14 00:00: 00 [facility] tramadol DA Active U RASH,HIVES 10-14 00:00: 00 [facility] No Known Allergie s DA Active U 2017-10-15 00:00: 00 [facility] Tramadol Propensi ty to adverse reaction s Active Hives 2016-10 0 00:00: 00 [facility] TRAMADOL DRUG INGREDI Active Hives 2016-10 00:00: 00 [facility] Social History Social Habit Start Date Stop Date Quantity Comments Source History of tobacco use Current smoker [facility] SDOH Alcohol Frequency [facility] History SDOH Alcohol Std Drinks [facility] History SDOH Alcohol Binge [facility] Exposure to SARS-CoV-2 (event) 2021-10-01 00:00:00 2021-10-31 12:20:00 Not sure [facility] History of Social function 2021-10-31 00:00:00 2021-10-31 00:00:00 [facility] Alcohol intake 2021-10-31 00:00:00 2021-10-31 00:00:00 Current drinker of alcohol (finding) [facility] Tobacco use and exposure 2021-01-27 00:00:00 2021-01-27 00:00:00 Smokeless tobacco non-user [facility] Alcohol Comment 2018-01-31 00:00:00 2018-01-31 00:00:00 social [facility] Sex Assigned At 1985 00:00:00 1985 00:00:00 [facility] Smoking Status Start Date Stop Date Source Ex-smoker 2021-01-27 00:00:00 2021-01-27 [facility]00[facility] Medications Ordered Medication Name Filled Medication Name Start Date Stop Date Current Medication? Ordering Clinician Indication Dosage Frequency Signature (SIG) Comments Components Source ibuprofen (IBU) tablet 600 mg 10-03 03:00: 00 10-03 03:08 :00 No 600mg 600 mg, Oral, ONCE, 1 dose, On 10/02/23 at 2100, OSVALDO [facility] HYDROcodone -acetaminop hen (NORCO 5) 5-325 mg tablet 1 tablet 10-31 19:45: 00 10-31 18:47 :00 No 1{tbl} 1 tablet, Oral, ONCE, 1 dose, On 10/31/21 at 1345, OSVALDO [facility] amoxicillin 875 mg tablet 10-31 00:00: 00 11-11 05:59 :00 No [id number] 875mg Take 1 tablet by mouth 2 (two) times daily for 10 days. [facility] iopamidol (ISOVUE 370-500 mL) injection 100 mL 06-19 00:00: 00 06-19 00:00 :00 No [id number] 100mL 100 mL, Intravenou s, ONCE, 1 dose, On Mon06/18/21 at 1900, Routine [facility] iopamidol (ISOVUE 370-500 mL) injection 100 mL 06-19 00:00: 00 06-19 00:00 :00 No [id number] 100mL 100 mL, Intravenou s, ONCE, 1 dose, On Mon06/18/21 at 1900, Routine [facility] midazolam (VERSED) injection 2 mg 06-18 23:00: 00 06-18 21:56 :00 No 2mg 2 mg, IV Push, ONCE, 1 dose, On Mon06/18/21 at 1800, STAT [facility] midazolam (VERSED) injection 2 mg 06-18 23:00: 00 06-18 21:56 :00 No 2mg 2 mg, IV Push, ONCE, 1 dose, On Mon06/18/21 at 1800, STAT [facility] FENTanyl PF (SUBLIMAZE (PF)) injection 50 mcg 06-18 22:45: 00 06-18 21:41 :00 No 50ug 50 mcg, Slow IV Push, ONCE, 1 dose, On Mon06/18/21 at 1745, STAT [facility] FENTanyl PF (SUBLIMAZE (PF)) injection 50 mcg 06-18 22:45: 00 06-18 21:41 :00 No 50ug 50 mcg, Slow IV Push, ONCE, 1 dose, On Mon06/18/21 at 1745, STAT [facility] ondansetron (ZOFRAN (PF)) injection 4 mg 06-18 22:00: 00 06-18 21:16 :00 No 4mg 4 mg, Slow IV Push, ONCE, 1 dose, On Mon06/18/21 at 1700, OSVALDO [facility] FENTanyl PF (SUBLIMAZE (PF)) injection 50 mcg 06-18 22:00: 00 06-18 21:16 :00 No 50ug 50 mcg, Slow IV Push, ONCE, 1 dose, On Mon06/18/21 at 1700, STAT [facility] ondansetron (ZOFRAN (PF)) injection 4 mg 06-18 22:00: 00 06-18 21:16 :00 No 4mg 4 mg, Slow IV Push, ONCE, 1 dose, On Mon06/18/21 at 1700, OSVALDO [facility] FENTanyl PF (SUBLIMAZE (PF)) injection 50 mcg 06-18 22:00: 00 06-18 21:16 :00 No 50ug 50 mcg, Slow IV Push, ONCE, 1 dose, On Mon06/18/21 at 1700, STAT [facility] ondansetron (ZOFRAN ODT) 4 mg disintegrat ing tablet 06-18 00:00: 00 Yes [id number] 4mg Take 1 tablet by mouth every 8 (eight) hours as needed for Nausea and Vomiting (N/V). [facility] acetaminoph en-codeine 300-30 mg tablet 06-18 00:00: 00 Yes [id number] 1{tbl} Take 1 tablet by mouth every 4 (four) hours as needed for Pain (scale 7-10). Indication s: acute pain [facility] ondansetron (ZOFRAN ODT) 4 mg disintegrat ing tablet 06-18 00:00: 00 Yes [id number] 4mg Take 1 tablet by mouth every 8 (eight) hours as needed for Nausea and Vomiting (N/V). [facility] acetaminoph en-codeine 300-30 mg tablet 06-18 00:00: 00 Yes [id number] 1{tbl} Take 1 tablet by mouth every 4 (four) hours as needed for Pain (scale 7-10). Indication s: acute pain [facility] ondansetron (ZOFRAN ODT) 4 mg disintegrat ing tablet 06-18 00:00: 00 Yes [id number] 4mg Take 1 tablet by mouth every 8 (eight) hours as needed for Nausea and Vomiting (N/V). [facility] acetaminoph en-codeine 300-30 mg tablet 06-18 00:00: 00 Yes [id number] 1{tbl} Take 1 tablet by mouth every 4 (four) hours as needed for Pain (scale 7-10). Indication s: acute pain [facility] ondansetron (ZOFRAN ODT) 4 mg disintegrat ing tablet 06-18 00:00: 00 Yes [id number] 4mg Take 1 tablet by mouth every 8 (eight) hours as needed for Nausea and Vomiting (N/V). [facility] acetaminoph en-codeine 300-30 mg tablet 06-18 00:00: 00 Yes [id number] 1{tbl} Take 1 tablet by mouth every 4 (four) hours as needed for Pain (scale 7-10). Indication s: acute pain [facility] ondansetron (ZOFRAN ODT) 4 mg disintegrat ing tablet 06-18 00:00: 00 Yes [id number] 4mg Take 1 tablet by mouth every 8 (eight) hours as needed for Nausea and Vomiting (N/V). [facility] acetaminoph en-codeine 300-30 mg tablet 06-18 00:00: 00 Yes [id number] 1{tbl} Take 1 tablet by mouth every 4 (four) hours as needed for Pain (scale 7-10). Indication s: acute pain [facility] ondansetron (ZOFRAN ODT) 4 mg disintegrat ing tablet 06-18 00:00: 00 Yes [id number] 4mg Take 1 tablet by mouth every 8 (eight) hours as needed for Nausea and Vomiting (N/V). [facility] acetaminoph en-codeine 300-30 mg tablet 06-18 00:00: 00 Yes [id number] 1{tbl} Take 1 tablet by mouth every 4 (four) hours as needed for Pain (scale 7-10). Indication s: acute pain [facility] levonorgest reL (MIRENA) IUD 1 Device 03-29 15:45: 00 03-29 14:35 :00 No [id number] 1{devic e} [facility] levonorgest reL (MIRENA) IUD 1 Device 03-29 15:45: 00 03-29 14:35 :00 No [id number] 1{devic e} 1 Device, Intrauteri ne, ONCE, 1 dose, Mon03/29/21 at 1045, Routine [facility] levonorgest reL (MIRENA) IUD 1 Device 03-29 15:45: 00 03-29 14:35 :00 No [id number] 1{devic e} [facility] levonorgest reL (MIRENA) IUD 1 Device 03-29 15:45: 00 03-29 14:35 :00 No [id number] 1{devic e} 1 Device, Intrauteri ne, ONCE, 1 dose, Mon03/29/21 at 1045, Routine [facility] miSOPROStoL 200 mcg tablet 03-10 00:00: 00 Yes [id number] 200ug Take 1 tablet by mouth SEE-INSTRU CTIONS. [facility] miSOPROStoL 200 mcg tablet 03-10 00:00: 00 Yes [id number] 200ug Take 1 tablet by mouth SEE-INSTRU CTIONS. [facility] miSOPROStoL 200 mcg tablet 03-10 00:00: 00 Yes [id number] 200ug Take 1 tablet by mouth SEE-INSTRU CTIONS. [facility] miSOPROStoL 200 mcg tablet 03-10 00:00: 00 03-29 00:00 :00 No [id number] 200ug Take 1 tablet by mouth SEE-INSTRU CTIONS. [facility] miSOPROStoL 200 mcg tablet 03-10 00:00: 00 03-29 00:00 :00 No [id number] 200ug Take 1 tablet by mouth SEE-INSTRU CTIONS. [facility] ketorolac (TORADOL) injection 30 mg 02-22 07:30: 00 02-22 06:33 :00 No 30mg 30 mg, Slow IV Push, ONCE, 1 dose, 02/22/21 at 0230, OSVALDO
Fa culty member approving Restricted medication : Riri ISAACS [facility] KCL (POTASSIUM CHLORIDE) 20 mEq in NaCl 0.9% (NS) 100 mL piggyback 02-22 06:30: 00 02-22 05:53 :00 No 20meq 20 mEq, IV Piggyback, ONCE, 1 dose, 02/22/21 at 0130, 100 mL [facility] KCL (KLOR-CON M20) tablet 40 mEq 02-22 06:30: 00 02-22 05:45 :00 No 40meq 40 mEq, Oral, ONCE, 1 dose, Mon02/22/21 at 0130, Routine [facility] acetaminoph en (TYLENOL) tablet 1,000 mg 02-22 05:00: 00 02-22 04:02 :00 No 1000mg 1,000 mg, Oral, ONCE, 1 dose, 02/22/21 at 0000, OSVALDO [facility] ondansetron (ZOFRAN (PF)) injection 4 mg 02-22 05:00: 00 02-22 04:16 :00 No 4mg 4 mg, Slow IV Push, ONCE, 1 dose, Mon02/22/21 at 0000, OSVALDO [facility] NaCl 0.9% (NS) bolus infusion 1,000 mL 02-22 05:00: 00 02-22 10:28 :00 No 1000mL at 999 mL/hr, 1,000 mL, IV Infusion, ONCE, 1 dose, 02/22/21 at 0000, STAT [facility] iopamidol (ISOVUE 370-500 mL) injection 120 mL 02-22 04:08: 00 02-22 04:11 :00 No [id number] 120mL 120 mL, Intravenou s, ONCE, 1 dose, 02/21/21 at 2315, Routine [facility] polyethylen e glycol 3350 (MIRALAX) 17 gram/dose powder 02-22 00:00: 00 02-27 04:59 :00 No [id number] 17g Take 17 g by mouth daily for 4 days. [facility] polyethylen e glycol 3350 (MIRALAX) 17 gram/dose powder 02-22 00:00: 00 02-27 04:59 :00 No [id number] 17g Take 17 g by mouth daily for 4 days. [facility] polyethylen e glycol 3350 (MIRALAX) 17 gram/dose powder 02-22 00:00: 00 02-27 04:59 :00 No [id number] 17g Take 17 g by mouth daily for 4 days. [facility] polyethylen e glycol 3350 (MIRALAX) 17 gram/dose powder 02-22 00:00: 00 02-27 04:59 :00 No [id number] 17g Take 17 g by mouth daily for 4 days. [facility] miSOPROStoL 200 mcg tablet 01-27 00:00: 00 Yes [id number] 200ug Take 1 tablet by mouth SEE-INSTRU CTIONS. Take one tab the night before and one tab the morning of procedure [facility] miSOPROStoL 200 mcg tablet 01-27 00:00: 00 Yes [id number] 200ug Take 1 tablet by mouth SEE-INSTRU CTIONS. Take one tab the night before and one tab the morning of procedure [facility] miSOPROStoL 200 mcg tablet 01-27 00:00: 00 Yes [id number] 200ug Take 1 tablet by mouth SEE-INSTRU CTIONS. Take one tab the night before and one tab the morning of procedure [facility] miSOPROStoL 200 mcg tablet 01-27 00:00: 00 02-24 00:00 :00 No [id number] 200ug Take 1 tablet by mouth SEE-INSTRU CTIONS. Take one tab the night before and one tab the morning of procedure [facility] miSOPROStoL 200 mcg tablet 01-27 00:00: 00 02-24 00:00 :00 No [id number] 200ug Take 1 tablet by mouth SEE-INSTRU CTIONS. Take one tab the night before and one tab the morning of procedure [facility] miSOPROStoL 200 mcg tablet 01-27 00:00: 00 02-24 00:00 :00 No [id number] 200ug Take 1 tablet by mouth SEE-INSTRU CTIONS. Take one tab the night before and one tab the morning of procedure [facility] ketorolac (TORADOL) injection 15 mg 01-19 23:15: 00 01-19 22:18 :00 No 15mg 15 mg, Slow IV Push, ONCE, 1 dose, 01/19/21 at 1815, OSVALDO
[facility] approving Restricted medication : SAM EVANS [facility] ondansetron (ZOFRAN (PF)) injection 4 mg 01-19 21:30: 00 01-19 21:29 :00 No 4mg 4 mg, Slow IV Push, ONCE, 1 dose, 01/19/21 at 1630, OSVALDO [facility] iohexol (OMNIPAQUE 350 BULK-150 mL) injection 120 mL 01-19 21:15: 00 01-19 21:15 :00 No [id number] 120mL 120 mL, Intravenou s, ONCE, 1 dose, 01/19/21 at 1615, Routine [facility] ibuprofen 800 mg tablet 01-19 00:00: 00 Yes [id number] 800mg Take 1 tablet by mouth every 8 (eight) hours as needed for Pain (scale 4-6). Take with food [facility] ibuprofen 800 mg tablet 01-19 00:00: 00 Yes [id number] 800mg Take 1 tablet by mouth every 8 (eight) hours as needed for Pain (scale 4-6). Take with food [facility] ibuprofen 800 mg tablet 01-19 00:00: 00 Yes [id number] 800mg Take 1 tablet by mouth every 8 (eight) hours as needed for Pain (scale 4-6). Take with food [facility]fen 800 mg tablet 1-0 20 00:00: 00 Yes [id number] 800mg Take 1 tablet by mouth every 8 (eight) hours as needed for Pain (scale 4-6). Take with food [facility] ibuprofen 800 mg tablet 1-0 20 00:00: 00 Yes [id number] 800mg Take 1 tablet by mouth every 8 (eight) hours as needed for Pain (scale 4-6). Take with food [facility] ib[facility]rofen 800 mg tablet 1-0 20 00:00: 00 Yes [id number] 800mg Take 1 tablet by mouth every 8 (eight) hours as needed for Pain (scale 4-6). Take with food [facility] ibuprofen 800 mg tablet 1-0 20 00:00: 00 Yes [id number] 800mg Take 1 tablet by mouth every 8 (eight) hours as needed for Pain (scale 4-6). Take with food [facility] ibuprofen 800 mg tablet 1-0 20 00:00: 00 Yes [id number] 800mg Take 1 tablet by mouth every 8 (eight) hours as needed for Pain (scale 4-6). Take with food [facility] ibuprofen 800 mg tablet 1-0 20 00:00: 00 Yes [id number] 800mg Take 1 tablet by mouth every 8 (eight) hours as needed for Pain (scale 4-6). Take with food [facility] ibuprofen 800 mg tablet 1-0 20 00:00: 00 Yes [id number] 800mg Take 1 tablet by mouth every 8 (eight) hours as needed for Pain (scale 4-6). Take with food [facility] ibuprofen 800 mg tablet 1-0 20 00:00: 00 Yes [id number] 800mg Take 1 tablet by mouth every 8 (eight) hours as needed for Pain (scale 4-6). Take with food [facility] ib[facility]fen 800 mg tablet 1-0 -20 00:00: 00 Yes [id number] 800mg Take 1 tablet by mouth every 8 (eight) hours as needed for Pain (scale 4-6). Take with food [facility] ibuprofen 800 mg tablet 2020-0 20 00:00: 00 Yes [id number] 800mg Take 1 tablet by mouth every 8 (eight) hours as needed for Pain (scale 4-6). Take with food [facility] ibuprofen 800 mg tablet 2020-0 20 00:00: 00 Yes [id number] 800mg Take 1 tablet by mouth every 8 (eight) hours as needed for Pain (scale 4-6). Take with food [facility] ibuprofen 800 mg tablet 2020-0 20 00:00: 00 Yes [id number] 800mg Take 1 tablet by mouth every 8 (eight) hours as needed for Pain (scale 4-6). Take with food [facility] ibuprofen 800 mg tablet 2020-0 20 00:00: 00 Yes [id number] 800mg Take 1 tablet by mouth every 8 (eight) hours as needed for Pain (scale 4-6). Take with food [facility] ibuprofen 800 mg tablet 2020-0 20 00:00: 00 Yes [id number] 800mg Take 1 tablet by mouth every 8 (eight) hours as needed for Pain (scale 4-6). Take with food [facility] ibuprofen 800 mg tablet 2020-0 20 00:00: 00 Yes [id number] 800mg Take 1 tablet by mouth every 8 (eight) hours as needed for Pain (scale 4-6). Take [facility] food [facility]fen [facility] mg tablet 2020-0 20 00:00: 00 Yes [id number] 800mg Take 1 tablet by mouth every 8 (eight) hours as needed for Pain (scale 4-6). Take with food [facility] ibuprofen 800 mg tablet 1-0 20 00:00: 00 Yes [id number] 800mg Take 1 tablet by mouth every 8 (eight) hours as needed for Pain (scale 4-6). Take with food [facility] ibuprofen 800 mg tablet 1-0 20 00:00: 00 Yes [id number] 800mg Take 1 tablet by mouth every 8 (eight) hours as needed for Pain (scale 4-6). Take with food [facility] ibuprofen 800 mg tablet 01-19 00:00: 00 Yes [id number] 800mg Take 1 tablet by mouth every 8 (eight) hours as needed for Pain (scale 4-6). Take with food [facility] ibuprofen 800 mg tablet 01-19 00:00: 00 Yes [id number] 800mg Take 1 tablet by mouth every 8 (eight) hours as needed for Pain (scale 4-6). Take with food [facility] ibuprofen 800 mg tablet 01-19 00:00: 00 Yes [id number] 800mg Take 1 tablet by mouth every 8 (eight) hours as needed for Pain (scale 4-6). Take with food [facility] ibuprofen 800 mg tablet 01-19 00:00: 00 Yes [id number] 800mg Take 1 tablet by mouth every 8 (eight) hours as needed for Pain (scale 4-6). Take with [facility] ibuprofen 800 mg tablet 01-19 00:00: 00 Yes [id number] 800mg Take 1 tablet by mouth every 8 (eight) hours as needed for Pain (scale 4-6). Take with [facility] ibuprofen 800 mg tablet 01-19 00:00: 00 Yes [id number] 800mg Take 1 tablet by mouth every 8 (eight) hours as needed for Pain (scale 4-6). Take with [facility] ibuprofen 800 mg tablet 01-19 00:00: 00 Yes [id number] 800mg Take 1 tablet by mouth every 8 (eight) hours as needed for Pain (scale 4-6). Take with [facility] acetaminoph en-codeine 300-30 mg tablet 01-19 00:00: 00 01-27 04:59 :00 No [id number] 1{tbl} Take 1 tablet by mouth every 6 (six) hours as needed for Pain (scale 7-10) for up to 7 days. Indication s: acute pain [facility] cephALEXin 500 mg capsule 01-13 00:00: 00 Yes 500mg Take 500 mg by mouth 2 (two) times daily. [facility] capsule 0 4-14 00:00: 00 Yes 500mg Take 500 mg by mouth 2 (two) times daily. [facility]ph[facility] mg capsule 0 4-14 00:00: 00 Yes 500mg Take 500 mg by mouth 2 (two) times daily. [facility]phAL[facility] mg capsule 0 -14 00:00: 00 02-24 00:00 :00 No 500mg Take 500 mg by mouth 2 (two) times daily. [facility] cephALEXin 500 mg capsule 0 14 00:00: 00 02-24 00:00 :00 No 500mg Take 500 mg by mouth 2 (two) times daily. [facility] cephALEXin 500 mg capsule 0 14 00:00: 00 02-24 00:00 :00 No 500mg Take 500 mg by mouth 2 (two) times daily. [facility] diclofenac 75 mg EC tablet 0 12-25 00:00: 00 Yes 75mg Take 1 tablet by mouth 2 (two) times daily with meals. [facility] diclofenac 75 mg EC tablet 0 12-25 00:00: 00 Yes 75mg Take 1 tablet by mouth 2 (two) times daily with meals. [facility] diclofenac 75 mg EC tablet 0 12-25 00:00: 00 Yes 75mg Take 1 tablet by mouth 2 (two) times daily with meals. [facility] diclofenac 75 mg EC tablet 0 12-25 00:00: 00 Yes 75mg Take 1 tablet by mouth 2 (two) times daily with meals. [facility] diclofenac 75 mg EC tablet 0 12-25 00:00: 00 Yes 75mg Take 1 tablet by mouth 2 (two) times daily with meals. [facility] diclofenac 75 mg EC tablet 0 12-25 00:00: 00 Yes 75mg Take 1 tablet by mouth 2 (two) times daily with meals. [facility] diclofenac 75 mg EC tablet 0 12-25 00:00: 00 Yes 75mg Take 1 tablet by mouth 2 (two) times daily with meals. [facility] diclofenac 75 mg EC tablet 12-25 00:00: 00 Yes 75mg Take 1 tablet by mouth 2 (two) times daily with meals. [facility] diclofenac 75 mg EC tablet 12-25 00:00: 00 Yes 75mg Take 1 tablet by mouth 2 (two) times daily with meals. [facility] diclofenac 75 mg EC tablet 12-25 00:00: 00 Yes 75mg Take 1 tablet by mouth 2 (two) times daily with meals. [facility] diclofenac 75 mg EC tablet 12-25 00:00: 00 01-27 00:00 :00 No 75mg Take 1 tablet by mouth 2 (two) times daily with meals. [facility] [facility] diclofenac [facility] EC tablet 12-25 00:00: 00 01-27 00:00 :00 No 75mg Take 1 tablet by mouth 2 (two) times daily with meals. [facility] cloNIDine 0.1 mg tablet 0 04-24 00:00: 00 Yes [id number] .1mg Take 1 tablet by mouth 2 (two) times daily. [facility] cloNIDine 0.1 mg tablet 0 04-24 00:00: 00 Yes [id number] .1mg Take 1 tablet by mouth 2 (two) times daily. [facility] cloNIDine 0.1 mg tablet 0 24 00:00: 00 Yes [id number] .1mg Take 1 tablet by mouth 2 (two) times daily. [facility] cloNIDine 0.1 mg tablet 0 24 00:00: 00 Yes [id number] .1mg Take 1 tablet by mouth 2 (two) times daily. [facility] cloNIDine 0.1 mg tablet 0 24 00:00: 00 Yes [id number] .1mg Take 1 tablet by mouth 2 (two) times daily. [facility] cloNIDine 0.1 mg tablet 0 24 00:00: 00 Yes [id number] .1mg Take 1 tablet by mouth 2 (two) times daily. [facility] cloNIDine 0.1 mg tablet 04-24 00:00: 00 Yes [id number] .1mg Take 1 tablet by mouth 2 (two) times daily. [facility] cloNIDine 0.1 mg tablet 04-24 00:00: 00 Yes [id number] .1mg Take 1 tablet by mouth 2 (two) times daily. [facility] cloNIDine 0.1 mg tablet 04-24 00:00: 00 Yes [id number] .1mg Take 1 tablet by mouth 2 (two) times daily. [facility] cloNIDine 0.1 mg tablet 04-24 00:00: 00 Yes [id number] .1mg Take 1 tablet by mouth 2 (two) times daily. [facility] cloNIDine 0.1 mg tablet 04-24 00:00: 00 Yes [id number] .1mg Take 1 tablet by mouth 2 (two) times daily. [facility] cloNIDine 0.1 mg tablet 04-24 00:00: 00 Yes [id number] .1mg Take 1 tablet by mouth 2 (two) times daily. [facility] cloNIDine 0.1 mg tablet 04-24 00:00: 00 Yes [id number] .1mg Take 1 tablet by mouth 2 (two) times daily. [facility] cloNIDine 0.1 mg tablet 04-24 00:00: 00 Yes [id number] .1mg Take 1 tablet by mouth 2 (two) times daily. [facility] cloNIDine 0.1 mg tablet 04-24 00:00: 00 Yes [id number] .1mg Take 1 tablet by mouth 2 (two) times daily. [facility] cloNIDine 0.1 mg tablet 04-24 00:00: 00 Yes [id number] .1mg Take 1 tablet by mouth 2 (two) times daily. [facility] cloNIDine 0.1 mg tablet 04-24 00:00: 00 Yes [id number] .1mg Take 1 tablet by mouth 2 (two) times daily. [facility] cloNIDine 0.1 mg tablet 04-24 00:00: 00 Yes [id number] .1mg Take 1 tablet by mouth 2 (two) times daily. [facility] cloNIDine 0.1 mg tablet 04-24 00:00: 00 Yes [id number] .1mg Take 1 tablet by mouth 2 (two) times daily. [facility] cloNIDine 0.1 mg tablet 04-24 00:00: 00 Yes [id number] .1mg Take 1 tablet by mouth 2 (two) times daily. [facility] cloNIDine 0.1 mg tablet 04-24 00:00: 00 Yes [id number] .1mg Take 1 tablet by mouth 2 (two) times daily. [facility] cloNIDine 0.1 mg tablet 04-24 00:00: 00 Yes [id number] .1mg Take 1 tablet by mouth 2 (two) times daily. [facility] cloNIDine 0.1 mg tablet 04-24 00:00: 00 Yes [id number] .1mg Take 1 tablet by mouth 2 (two) times daily. [facility] cloNIDine 0.1 mg tablet 04-24 00:00: 00 Yes [id number] .1mg Take 1 tablet by mouth 2 (two) times daily. [facility] cloNIDine 0.1 mg tablet 04-24 00:00: 00 Yes [id number] .1mg Take 1 tablet by mouth 2 (two) times daily. [facility] cloNIDine 0.1 mg tablet 04-24 00:00: 00 Yes [id number] .1mg Take 1 tablet by mouth 2 (two) times daily. [facility] cloNIDine 0.1 mg tablet 04-24 00:00: 00 Yes [id number] .1mg Take 1 tablet by mouth 2 (two) times daily. [facility] cloNIDine 0.1 mg tablet 04-24 00:00: 00 Yes [id number] .1mg Take 1 tablet by mouth 2 (two) times daily. [facility] cloNIDine 0.1 mg tablet 04-24 00:00: 00 Yes [id number] .1mg Take 1 tablet by mouth 2 (two) times daily. [facility] cloNIDine 0.1 mg tablet 04-24 00:00: 00 Yes [id number] .1mg Take 1 tablet by mouth 2 (two) times daily. [facility] cloNIDine 0.1 mg tablet 04-24 00:00: 00 Yes [id number] .1mg Take 1 tablet by mouth 2 (two) times daily. [facility] cloNIDine 0.1 mg tablet 04-24 00:00: 00 Yes [id number] .1mg Take 1 tablet by mouth 2 (two) times daily. [facility] cloNIDine 0.1 mg tablet 04-24 00:00: 00 Yes [id number] .1mg Take 1 tablet by mouth 2 (two) times daily. [facility] cloNIDine 0.1 mg tablet 04-24 00:00: 00 Yes [id number] .1mg Take 1 tablet by mouth 2 (two) times daily. [facility] cloNIDine 0.1 mg tablet 04-24 00:00: 00 Yes [id number] .1mg Take 1 tablet by mouth 2 (two) times daily. [facility] cloNIDine 0.1 mg tablet 04-24 00:00: 00 Yes [id number] .1mg Take 1 tablet by mouth 2 (two) times daily. [facility] cloNIDine 0.1 mg tablet 04-24 00:00: 00 Yes [id number] .1mg Take 1 tablet by mouth 2 (two) times daily. [facility] cloNIDine 0.1 mg tablet 04-24 00:00: 00 Yes [id number] .1mg Take 1 tablet by mouth 2 (two) times daily. [facility] cloNIDine 0.1 mg tablet 04-24 00:00: 00 Yes [id number] .1mg Take 1 tablet by mouth 2 (two) times daily. [facility] cloNIDine 0.1 mg tablet 04-24 00:00: 00 Yes [id number] .1mg Take 1 tablet by mouth 2 (two) times daily. [facility] cloNIDine 0.1 mg tablet 04-24 00:00: 00 Yes [id number] .1mg Take 1 tablet by mouth 2 (two) times daily. [facility] cloNIDine 0.1 mg tablet 24 00:00: 00 Yes [id number] .1mg Take 1 tablet by mouth 2 (two) times daily. [facility] acetaminoph en-codeine (TYLENOL-CO DEINE #3) 300-30 mg tablet 16 00:00: 00 Yes [id number] 1{tbl} Take 1 tablet by mouth every 4 (four) hours as needed for Pain (scale 7-10). [facility] amoxicillin 500 mg capsule 10-17 00:00: 00 Yes [id number] 500mg Take 1 capsule by mouth 3 (three) times daily. [facility] acetaminoph en-codeine (TYLENOL-CO DEINE #3) 300-30 mg tablet 10-17 00:00: 00 Yes [id number] 1{tbl} Take 1 tablet by mouth every 4 (four) hours as needed for Pain (scale 7-10). [facility] amoxicillin 500 mg capsule 10-17 00:00: 00 Yes [id number] 500mg Take 1 capsule by mouth 3 (three) times daily. [facility] acetaminoph en-codeine (TYLENOL-CO DEINE #3) 300-30 mg tablet 10-17 00:00: 00 Yes [id number] 1{tbl} Take 1 tablet by mouth every 4 (four) hours as needed for Pain (scale 7-10). [facility] amoxicillin 500 mg capsule 10-17 00:00: 00 Yes [id number] 500mg Take 1 capsule by mouth 3 (three) times daily. [facility] acetaminoph en-codeine (TYLENOL-CO DEINE #3) 300-30 mg tablet 10-17 00:00: 00 Yes [id number] 1{tbl} Take 1 tablet by mouth every 4 (four) hours as needed for Pain (scale 7-10). [facility] amoxicillin 500 mg capsule 16 00:00: 00 Yes [id number] 500mg Take 1 capsule by mouth 3 (three) times daily. [facility] acetaminoph en-codeine (TYLENOL-CO DEINE #3) 300-30 mg tablet 10-17 00:00: 00 Yes [id number] 1{tbl} Take 1 tablet by mouth every 4 (four) hours as needed for Pain (scale 7-10). [facility] amoxicillin 500 mg capsule 10-17 00:00: 00 Yes [id number] 500mg Take 1 capsule by mouth 3 (three) times daily. [facility] acetaminoph en-codeine (TYLENOL-CO DEINE #3) 300-30 mg tablet 10-17 00:00: 00 Yes [id number] 1{tbl} Take 1 tablet by mouth every 4 (four) hours as needed for Pain (scale 7-10). [facility] amoxicillin 500 mg capsule 10-17 00:00: 00 Yes [id number] 500mg Take 1 capsule by mouth 3 (three) times daily. [facility] acetaminoph en-codeine (TYLENOL-CO DEINE #3) 300-30 mg tablet 10-17 00:00: 00 Yes [id number] 1{tbl} Take 1 tablet by mouth every 4 (four) hours as needed for Pain (scale 7-10). [facility] amoxicillin 500 mg capsule 10-17 00:00: 00 Yes [id number] 500mg Take 1 capsule by mouth 3 (three) times daily. [facility] acetaminoph en-codeine (TYLENOL-CO DEINE #3) 300-30 mg tablet 10-17 00:00: 00 Yes [id number] 1{tbl} Take 1 tablet by mouth every 4 (four) hours as needed for Pain (scale 7-10). [facility] amoxicillin 500 mg capsule 10-17 00:00: 00 Yes [id number] 500mg Take 1 capsule by mouth 3 (three) times daily. [facility] acetaminoph en-codeine (TYLENOL-CO DEINE #3) 300-30 mg tablet 10-17 00:00: 00 Yes [id number] 1{tbl} Take 1 tablet by mouth every 4 (four) hours as needed for Pain (scale 7-10). [facility] amoxicillin 500 mg capsule 10-17 00:00: 00 Yes [id number] 500mg Take 1 capsule by mouth 3 (three) times daily. [facility] acetaminoph en-codeine (TYLENOL-CO DEINE #3) 300-30 mg tablet 10-17 00:00: 00 Yes [id number] 1{tbl} Take 1 tablet by mouth every 4 (four) hours as needed for Pain (scale 7-10). [facility] amoxicillin 500 mg capsule 10-17 00:00: 00 Yes [id number] 500mg Take 1 capsule by mouth 3 (three) times daily. [facility] acetaminoph en-codeine (TYLENOL-CO DEINE #3) 300-30 mg tablet 10-17 00:00: 00 Yes [id number] 1{tbl} Take 1 tablet by mouth every 4 (four) hours as needed for Pain (scale 7-10). [facility] amoxicillin 500 mg capsule 10-17 00:00: 00 Yes [id number] 500mg Take 1 capsule by mouth 3 (three) times daily. [facility] acetaminoph en-codeine (TYLENOL-CO DEINE #3) 300-30 mg tablet 10-17 00:00: 00 Yes [id number] 1{tbl} Take 1 tablet by mouth every 4 (four) hours as needed for Pain (scale 7-10). [facility] amoxicillin 500 mg capsule 10-17 00:00: 00 Yes [id number] 500mg Take 1 capsule by mouth 3 (three) times daily. [facility] acetaminoph en-codeine (TYLENOL-CO DEINE #3) 300-30 mg tablet 10-17 00:00: 00 Yes [id number] 1{tbl} Take 1 tablet by mouth every 4 (four) hours as needed for Pain (scale 7-10). [facility] amoxicillin 500 mg capsule 10-17 00:00: 00 Yes [id number] 500mg Take 1 capsule by mouth 3 (three) times daily. [facility] acetaminoph en-codeine (TYLENOL-CO DEINE #3) 300-30 mg tablet 10-17 00:00: 00 Yes [id number] 1{tbl} Take 1 tablet by mouth every 4 (four) hours as needed for Pain (scale 7-10). [facility] amoxicillin 500 mg capsule 10-17 00:00: 00 Yes [id number] 500mg Take 1 capsule by mouth 3 (three) times daily. [facility] acetaminoph en-codeine (TYLENOL-CO DEINE #3) 300-30 mg tablet 10-17 00:00: 00 Yes [id number] 1{tbl} Take 1 tablet by mouth every 4 (four) hours as needed for Pain (scale 7-10). [facility] amoxicillin 500 mg capsule 10-17 00:00: 00 Yes [id number] 500mg Take 1 capsule by mouth 3 (three) times daily. [facility] acetaminoph en-codeine (TYLENOL-CO DEINE #3) 300-30 mg tablet 10-17 00:00: 00 Yes [id number] 1{tbl} Take 1 tablet by mouth every 4 (four) hours as needed for Pain (scale 7-10). [facility] amoxicillin 500 mg capsule 10-17 00:00: 00 Yes [id number] 500mg Take 1 capsule by mouth 3 (three) times daily. [facility] acetaminoph en-codeine (TYLENOL-CO DEINE #3) 300-30 mg tablet 10-17 00:00: 00 01-27 00:00 :00 No [id number] 1{tbl} Take 1 tablet by mouth every 4 (four) hours as needed for Pain (scale 7-10). [facility] amoxicillin 500 mg capsule 10-17 00:00: 00 01-27 00:00 :00 No [id number] 500mg Take 1 capsule by mouth 3 (three) times daily. [facility] acetaminoph en-codeine (TYLENOL-CO DEINE #3) 300-30 mg tablet 10-17 00:00: 00 01-27 00:00 :00 No [id number] 1{tbl} Take 1 tablet by mouth every 4 (four) hours as needed for Pain (scale 7-10). [facility] amoxicillin 500 mg capsule 10-17 00:00: 00 01-27 00:00 :00 No [id number] 500mg Take 1 capsule by mouth 3 (three) times daily. [facility] cyclobenzap rine 5 mg tablet 06-22 00:00: 00 Yes 5mg Take 1 tablet by mouth 3 (three) times daily. [facility] cyclobenzap rine 5 mg tablet 06-22 00:00: 00 Yes 5mg Take 1 tablet by mouth 3 (three) times daily. [facility] cyclobenzap rine 5 mg tablet 06-22 00:00: 00 Yes 5mg Take 1 tablet by mouth 3 (three) times daily. [facility] cyclobenzap rine 5 mg tablet 06-22 00:00: 00 Yes 5mg Take 1 tablet by mouth 3 (three) times daily. [facility] cyclobenzap rine 5 mg tablet 06-22 00:00: 00 Yes 5mg Take 1 tablet by mouth 3 (three) times daily. [facility] cyclobenzap rine 5 mg tablet 06-22 00:00: 00 Yes 5mg Take 1 tablet by mouth 3 (three) times daily. [facility] cyclobenzap rine 5 mg tablet 06-22 00:00: 00 Yes 5mg Take 1 tablet by mouth 3 (three) times daily. [facility] acetaminoph en-codeine (TYLENOL-CO DEINE #3) 300-30 mg tablet 06-22 00:00: 00 Yes 1{tbl} Take 1 tablet by mouth every 6 (six) hours as needed for Pain (scale 4-6) (for cough). [facility] cyclobenzap rine 5 mg tablet 06-22 00:00: 00 Yes 5mg Take 1 tablet by mouth 3 (three) times daily. [facility] acetaminoph en-codeine (TYLENOL-CO DEINE #3) 300-30 mg tablet 06-22 00:00: 00 Yes 1{tbl} Take 1 tablet by mouth every 6 (six) hours as needed for Pain (scale 4-6) (for cough). [facility] cyclobenzap rine 5 mg tablet 06-22 00:00: 00 Yes 5mg Take 1 tablet by mouth 3 (three) times daily. [facility] acetaminoph en-codeine (TYLENOL-CO DEINE #3) 300-30 mg tablet 06-22 00:00: 00 Yes 1{tbl} Take 1 tablet by mouth every 6 (six) hours as needed for Pain (scale 4-6) (for cough). [facility] cyclobenzap rine 5 mg tablet 06-22 00:00: 00 Yes 5mg Take 1 tablet by mouth 3 (three) times daily. [facility] acetaminoph en-codeine (TYLENOL-CO DEINE #3) 300-30 mg tablet 06-22 00:00: 00 Yes 1{tbl} Take 1 tablet by mouth every 6 (six) hours as needed for Pain (scale 4-6) (for cough). [facility] cyclobenzap rine 5 mg tablet 06-22 00:00: 00 Yes 5mg Take 1 tablet by mouth 3 (three) times daily. [facility] acetaminoph en-codeine (TYLENOL-CO DEINE #3) 300-30 mg tablet 06-22 00:00: 00 Yes 1{tbl} Take 1 tablet by mouth every 6 (six) hours as needed for Pain (scale 4-6) (for cough). [facility] cyclobenzap rine 5 mg tablet 06-22 00:00: 00 Yes 5mg Take 1 tablet by mouth 3 (three) times daily. [facility] acetaminoph en-codeine (TYLENOL-CO DEINE #3) 300-30 mg tablet 06-22 00:00: 00 Yes 1{tbl} Take 1 tablet by mouth every 6 (six) hours as needed for Pain (scale 4-6) (for cough). [facility] cyclobenzap rine 5 mg tablet 06-22 00:00: 00 Yes 5mg Take 1 tablet by mouth 3 (three) times daily. [facility] acetaminoph en-codeine (TYLENOL-CO DEINE #3) 300-30 mg tablet 06-22 00:00: 00 Yes 1{tbl} Take 1 tablet by mouth every 6 (six) hours as needed for Pain (scale 4-6) (for cough). [facility] cyclobenzap rine 5 mg tablet 06-22 00:00: 00 Yes 5mg Take 1 tablet by mouth 3 (three) times daily. [facility] acetaminoph en-codeine (TYLENOL-CO DEINE #3) 300-30 mg tablet 06-22 00:00: 00 Yes 1{tbl} Take 1 tablet by mouth every 6 (six) hours as needed for Pain (scale 4-6) (for cough). [facility] cyclobenzap rine 5 mg tablet 06-22 00:00: 00 Yes 5mg Take 1 tablet by mouth 3 (three) times daily. [facility] acetaminoph en-codeine (TYLENOL-CO DEINE #3) 300-30 mg tablet 06-22 00:00: 00 Yes 1{tbl} Take 1 tablet by mouth every 6 (six) hours as needed for Pain (scale 4-6) (for cough). [facility] cyclobenzap rine 5 mg tablet 06-22 00:00: 00 Yes 5mg Take 1 tablet by mouth 3 (three) times daily. [facility] acetaminoph en-codeine (TYLENOL-CO DEINE #3) 300-30 mg tablet 06-22 00:00: 00 Yes 1{tbl} Take 1 tablet by mouth every 6 (six) hours as needed for Pain (scale 4-6) (for cough). [facility] cyclobenzap rine 5 mg tablet 06-22 00:00: 00 Yes 5mg Take 1 tablet by mouth 3 (three) times daily. [facility] acetaminoph en-codeine (TYLENOL-CO DEINE #3) 300-30 mg tablet 06-22 00:00: 00 Yes 1{tbl} Take 1 tablet by mouth every 6 (six) hours as needed for Pain (scale 4-6) (for cough). [facility] cyclobenzap rine 5 mg tablet 06-22 00:00: 00 Yes 5mg Take 1 tablet by mouth 3 (three) times daily. [facility] acetaminoph en-codeine (TYLENOL-CO DEINE #3) 300-30 mg tablet 06-22 00:00: 00 Yes 1{tbl} Take 1 tablet by mouth every 6 (six) hours as needed for Pain (scale 4-6) (for cough). [facility] cyclobenzap rine 5 mg tablet 06-22 00:00: 00 Yes 5mg Take 1 tablet by mouth 3 (three) times daily. [facility] acetaminoph en-codeine (TYLENOL-CO DEINE #3) 300-30 mg tablet 06-22 00:00: 00 Yes 1{tbl} Take 1 tablet by mouth every 6 (six) hours as needed for Pain (scale 4-6) (for cough). [facility] cyclobenzap rine 5 mg tablet 06-22 00:00: 00 Yes 5mg Take 1 tablet by mouth 3 (three) times daily. [facility] acetaminoph en-codeine (TYLENOL-CO DEINE #3) 300-30 mg tablet 06-22 00:00: 00 Yes 1{tbl} Take 1 tablet by mouth every 6 (six) hours as needed for Pain (scale 4-6) (for cough). [facility] cyclobenzap rine 5 mg tablet 06-22 00:00: 00 Yes 5mg Take 1 tablet by mouth 3 (three) times daily. [facility] acetaminoph en-codeine (TYLENOL-CO DEINE #3) 300-30 mg tablet 06-22 00:00: 00 Yes 1{tbl} Take 1 tablet by mouth every 6 (six) hours as needed for Pain (scale 4-6) (for cough). [facility] cyclobenzap rine 5 mg tablet 06-22 00:00: 00 Yes 5mg Take 1 tablet by mouth 3 (three) times daily. [facility] acetaminoph en-codeine (TYLENOL-CO DEINE #3) 300-30 mg tablet 06-22 00:00: 00 Yes 1{tbl} Take 1 tablet by mouth every 6 (six) hours as needed for Pain (scale 4-6) (for cough). [facility] cyclobenzap rine 5 mg tablet 06-22 00:00: 00 Yes 5mg Take 1 tablet by mouth 3 (three) times daily. [facility] cyclobenzap rine 5 mg tablet 06-22 00:00: 00 Yes 5mg Take 1 tablet by mouth 3 (three) times daily. [facility] cyclobenzap rine 5 mg tablet 06-22 00:00: 00 Yes 5mg Take 1 tablet by mouth 3 (three) times daily. [facility] cyclobenzap rine 5 mg tablet 06-22 00:00: 00 Yes 5mg Take 1 tablet by mouth 3 (three) times daily. [facility] cyclobenzap rine 5 mg tablet 06-22 00:00: 00 Yes 5mg Take 1 tablet by mouth 3 (three) times daily. [facility] cyclobenzap rine 5 mg tablet 06-22 00:00: 00 Yes 5mg Take 1 tablet by mouth 3 (three) times daily. [facility] cyclobenzap rine 5 mg tablet 06-22 00:00: 00 Yes 5mg Take 1 tablet by mouth 3 (three) times daily. [facility] cyclobenzap rine 5 mg tablet 06-22 00:00: 00 Yes 5mg Take 1 tablet by mouth 3 (three) times daily. [facility] cyclobenzap rine 5 mg tablet 06-22 00:00: 00 Yes 5mg Take 1 tablet by mouth 3 (three) times daily. [facility] cyclobenzap rine 5 mg tablet 06-22 00:00: 00 Yes 5mg Take 1 tablet by mouth 3 (three) times daily. [facility] cyclobenzap rine 5 mg tablet 06-22 00:00: 00 Yes 5mg Take 1 tablet by mouth 3 (three) times daily. [facility] cyclobenzap rine 5 mg tablet 06-22 00:00: 00 Yes 5mg Take 1 tablet by mouth 3 (three) times daily. [facility] cyclobenzap rine 5 mg tablet 06-22 00:00: 00 Yes 5mg Take 1 tablet by mouth 3 (three) times daily. [facility] cyclobenzap rine 5 mg tablet 06-22 00:00: 00 Yes 5mg Take 1 tablet by mouth 3 (three) times daily. [facility] cyclobenzap rine 5 mg tablet 06-22 00:00: 00 Yes 5mg Take 1 tablet by mouth 3 (three) times daily. [facility] cyclobenzap rine 5 mg tablet 06-22 00:00: 00 Yes 5mg Take 1 tablet by mouth 3 (three) times daily. [facility] cyclobenzap rine 5 mg tablet 06-22 00:00: 00 Yes 5mg Take 1 tablet by mouth 3 (three) times daily. [facility] cyclobenzap rine 5 mg tablet 06-22 00:00: 00 Yes 5mg Take 1 tablet by mouth 3 (three) times daily. [facility] cyclobenzap rine 5 mg tablet 06-22 00:00: 00 Yes 5mg Take 1 tablet by mouth 3 (three) times daily. [facility] cyclobenzap rine 5 mg tablet 06-22 00:00: 00 Yes 5mg Take 1 tablet by mouth 3 (three) times daily. [facility] acetaminoph en-codeine (TYLENOL-CO DEINE #3) 300-30 mg tablet 06-22 00:00: 00 01-27 00:00 :00 No 1{tbl} Take 1 tablet by mouth every 6 (six) hours as needed for Pain (scale 4-6) (for cough). [facility] acetaminoph en-codeine (TYLENOL-CO DEINE #3) 300-30 mg tablet 06-22 00:00: 00 01-27 00:00 :00 No 1{tbl} Take 1 tablet by mouth every 6 (six) hours as needed for Pain (scale 4-6) (for cough). [facility] aspirin 81 mg chewable tablet 06-05 00:00: 00 Yes 81mg Take 1 tablet by mouth daily. [facility] aspirin 81 mg chewable tablet 06-05 00:00: 00 Yes 81mg Take 1 tablet by mouth daily. [facility] aspirin 81 mg chewable tablet 06-05 00:00: 00 Yes 81mg Take 1 tablet by mouth daily. [facility] aspirin 81 mg chewable tablet 06-05 00:00: 00 Yes 81mg Take 1 tablet by mouth daily. [facility] aspirin 81 mg chewable tablet 06-05 00:00: 00 Yes 81mg Take 1 tablet by mouth daily. [facility] aspirin 81 mg chewable tablet 06-05 00:00: 00 Yes 81mg Take 1 tablet by mouth daily. [facility] aspirin 81 mg chewable tablet 06-05 00:00: 00 Yes 81mg Take 1 tablet by mouth daily. [facility] aspirin 81 mg chewable tablet 06-05 00:00: 00 Yes 81mg Take 1 tablet by mouth daily. [facility] aspirin 81 mg chewable tablet 06-05 00:00: 00 Yes 81mg Take 1 tablet by mouth daily. [facility] aspirin 81 mg chewable tablet 06-05 00:00: 00 Yes 81mg Take 1 tablet by mouth daily. [facility] aspirin 81 mg chewable tablet 06-05 00:00: 00 Yes 81mg Take 1 tablet by mouth daily. [facility] aspirin 81 mg chewable tablet 06-05 00:00: 00 Yes 81mg Take 1 tablet by mouth daily. [facility] aspirin 81 mg chewable tablet 06-05 00:00: 00 Yes 81mg Take 1 tablet by mouth daily. [facility] aspirin 81 mg chewable tablet 06-05 00:00: 00 Yes 81mg Take 1 tablet by mouth daily. [facility] aspirin 81 mg chewable tablet 06-05 00:00: 00 Yes 81mg Take 1 tablet by mouth daily. [facility] aspirin 81 mg chewable tablet 06-05 00:00: 00 Yes 81mg Take 1 tablet by mouth daily. [facility] aspirin 81 mg chewable tablet 06-05 00:00: 00 Yes 81mg Take 1 tablet by mouth daily. [facility] aspirin 81 mg chewable tablet 06-05 00:00: 00 Yes 81mg Take 1 tablet by mouth daily. [facility] aspirin 81 mg chewable tablet 06-05 00:00: 00 Yes 81mg Take 1 tablet by mouth daily. [facility] aspirin 81 mg chewable tablet 06-05 00:00: 00 Yes 81mg Take 1 tablet by mouth daily. [facility] aspirin 81 mg chewable tablet 06-05 00:00: 00 Yes 81mg Take 1 tablet by mouth daily. [facility] aspirin 81 mg chewable tablet 06-05 00:00: 00 Yes 81mg Take 1 tablet by mouth daily. [facility] aspirin 81 mg chewable tablet 06-05 00:00: 00 Yes 81mg Take 1 tablet by mouth daily. [facility] aspirin 81 mg chewable tablet 06-05 00:00: 00 03-10 00:00 :00 No 81mg Take 1 tablet by mouth daily. [facility] aspirin 81 mg chewable tablet 06-05 00:00: 00 03-10 00:00 :00 No 81mg Take 1 tablet by mouth daily. [facility] atorvastati n 20 mg tablet 06-04 00:00: 00 Yes 20mg Take 1 tablet by mouth at bedtime. [facility] SERTraline 50 mg tablet 06-04 00:00: 00 Yes [id number] 50mg Take 1 tablet by mouth daily. [facility] atorvastati n 20 mg tablet 06-04 00:00: 00 Yes 20mg Take 1 tablet by mouth at bedtime. [facility] SERTraline 50 mg tablet 06-04 00:00: 00 Yes [id number] 50mg Take 1 tablet by mouth daily. [facility] atorvastati n 20 mg tablet 06-04 00:00: 00 Yes 20mg Take 1 tablet by mouth at bedtime. [facility] SERTraline 50 mg tablet 06-04 00:00: 00 Yes [id number] 50mg Take 1 tablet by mouth daily. [facility] atorvastati n 20 mg tablet 06-04 00:00: 00 Yes 20mg Take 1 tablet by mouth at bedtime. [facility] SERTraline 50 mg tablet 06-04 00:00: 00 Yes [id number] 50mg Take 1 tablet by mouth daily. [facility] atorvastati n 20 mg tablet 06-04 00:00: 00 Yes 20mg Take 1 tablet by mouth at bedtime. [facility] SERTraline 50 mg tablet 06-04 00:00: 00 Yes [id number] 50mg Take 1 tablet by mouth daily. [facility] atorvastati n 20 mg tablet 06-04 00:00: 00 Yes 20mg Take 1 tablet by mouth at bedtime. [facility] SERTraline 50 mg tablet 06-04 00:00: 00 Yes [id number] 50mg Take 1 tablet by mouth daily. [facility] atorvastati n 20 mg tablet 06-04 00:00: 00 Yes 20mg Take 1 tablet by mouth at bedtime. [facility] SERTraline 50 mg tablet 06-04 00:00: 00 Yes [id number] 50mg Take 1 tablet by mouth daily. [facility] atorvastati n 20 mg tablet 06-04 00:00: 00 Yes 20mg Take 1 tablet by mouth at bedtime. [facility] SERTraline 50 mg tablet 06-04 00:00: 00 Yes [id number] 50mg Take 1 tablet by mouth daily. [facility] atorvastati n 20 mg tablet 06-04 00:00: 00 Yes 20mg Take 1 tablet by mouth at bedtime. [facility] SERTraline 50 mg tablet 06-04 00:00: 00 Yes [id number] 50mg Take 1 tablet by mouth daily. [facility] atorvastati n 20 mg tablet 06-04 00:00: 00 Yes 20mg Take 1 tablet by mouth at bedtime. [facility] SERTraline 50 mg tablet 06-04 00:00: 00 Yes [id number] 50mg Take 1 tablet by mouth daily. [facility] atorvastati n 20 mg tablet 06-04 00:00: 00 Yes 20mg Take 1 tablet by mouth at bedtime. [facility] SERTraline 50 mg tablet 06-04 00:00: 00 Yes [id number] 50mg Take 1 tablet by mouth daily. [facility] atorvastati n 20 mg tablet 06-04 00:00: 00 Yes 20mg Take 1 tablet by mouth at bedtime. [facility] SERTraline 50 mg tablet 06-04 00:00: 00 Yes [id number] 50mg Take 1 tablet by mouth daily. [facility] atorvastati n 20 mg tablet 06-04 00:00: 00 Yes 20mg Take 1 tablet by mouth at bedtime. [facility] SERTraline 50 mg tablet 06-04 00:00: 00 Yes [id number] 50mg Take 1 tablet by mouth daily. [facility] atorvastati n 20 mg tablet 06-04 00:00: 00 Yes 20mg Take 1 tablet by mouth at bedtime. [facility] SERTraline 50 mg tablet 06-04 00:00: 00 Yes [id number] 50mg Take 1 tablet by mouth daily. [facility] atorvastati n 20 mg tablet 06-04 00:00: 00 Yes 20mg Take 1 tablet by mouth at bedtime. [facility] SERTraline 50 mg tablet 06-04 00:00: 00 Yes [id number] 50mg Take 1 tablet by mouth daily. [facility] atorvastati n 20 mg tablet 06-04 00:00: 00 Yes 20mg Take 1 tablet by mouth at bedtime. [facility] SERTraline 50 mg tablet 06-04 00:00: 00 Yes [id number] 50mg Take 1 tablet by mouth daily. [facility] atorvastati n 20 mg tablet 06-04 00:00: 00 Yes 20mg Take 1 tablet by mouth at bedtime. [facility] SERTraline 50 mg tablet 06-04 00:00: 00 Yes [id number] 50mg Take 1 tablet by mouth daily. [facility] atorvastati n 20 mg tablet 06-04 00:00: 00 Yes 20mg Take 1 tablet by mouth at bedtime. [facility] SERTraline 50 mg tablet 06-04 00:00: 00 Yes [id number] 50mg Take 1 tablet by mouth daily. [facility] atorvastati n 20 mg tablet 06-04 00:00: 00 Yes 20mg Take 1 tablet by mouth at bedtime. [facility] SERTraline 50 mg tablet 06-04 00:00: 00 Yes [id number] 50mg Take 1 tablet by mouth daily. [facility] atorvastati n 20 mg tablet 06-04 00:00: 00 Yes 20mg Take 1 tablet by mouth at bedtime. [facility] SERTraline 50 mg tablet 06-04 00:00: 00 Yes [id number] 50mg Take 1 tablet by mouth daily. [facility] atorvastati n 20 mg tablet 06-04 00:00: 00 Yes 20mg Take 1 tablet by mouth at bedtime. [facility] SERTraline 50 mg tablet 06-04 00:00: 00 Yes [id number] 50mg Take 1 tablet by mouth daily. [facility] atorvastati n 20 mg tablet 06-04 00:00: 00 Yes 20mg Take 1 tablet by mouth at bedtime. [facility] SERTraline 50 mg tablet 06-04 00:00: 00 Yes [id number] 50mg Take 1 tablet by mouth daily. [facility] atorvastati n 20 mg tablet 06-04 00:00: 00 Yes 20mg Take 1 tablet by mouth at bedtime. [facility] SERTraline 50 mg tablet 06-04 00:00: 00 Yes [id number] 50mg Take 1 tablet by mouth daily. [facility] atorvastati n 20 mg tablet 06-04 00:00: 00 Yes 20mg Take 1 tablet by mouth at bedtime. [facility] SERTraline 50 mg tablet 06-04 00:00: 00 Yes [id number] 50mg Take 1 tablet by mouth daily. [facility] atorvastati n 20 mg tablet 06-04 00:00: 00 Yes 20mg Take 1 tablet by mouth at bedtime. [facility] SERTraline 50 mg tablet 06-04 00:00: 00 Yes [id number] 50mg Take 1 tablet by mouth daily. [facility] atorvastati n 20 mg tablet 06-04 00:00: 00 Yes 20mg Take 1 tablet by mouth at bedtime. [facility] SERTraline 50 mg tablet 06-04 00:00: 00 Yes [id number] 50mg Take 1 tablet by mouth daily. [facility] atorvastati n 20 mg tablet 06-04 00:00: 00 Yes 20mg Take 1 tablet by mouth at bedtime. [facility] SERTraline 50 mg tablet 06-04 00:00: 00 Yes [id number] 50mg Take 1 tablet by mouth daily. [facility] atorvastati n 20 mg tablet 06-04 00:00: 00 Yes 20mg Take 1 tablet by mouth at bedtime. [facility] SERTraline 50 mg tablet 06-04 00:00: 00 Yes [id number] 50mg Take 1 tablet by mouth daily. [facility] atorvastati n 20 mg tablet 06-04 00:00: 00 Yes 20mg Take 1 tablet by mouth at bedtime. [facility] SERTraline 50 mg tablet 06-04 00:00: 00 Yes [id number] 50mg Take 1 tablet by mouth daily. [facility] atorvastati n 20 mg tablet 06-04 00:00: 00 Yes 20mg Take 1 tablet by mouth at bedtime. [facility] SERTraline 50 mg tablet 06-04 00:00: 00 Yes [id number] 50mg Take 1 tablet by mouth daily. [facility] atorvastati n 20 mg tablet 06-04 00:00: 00 Yes 20mg Take 1 tablet by mouth at bedtime. [facility] SERTraline 50 mg tablet 06-04 00:00: 00 Yes [id number] 50mg Take 1 tablet by mouth daily. [facility] atorvastati n 20 mg tablet 06-04 00:00: 00 Yes 20mg Take 1 tablet by mouth at bedtime. [facility] SERTraline 50 mg tablet 06-04 00:00: 00 Yes [id number] 50mg Take 1 tablet by mouth daily. [facility] atorvastati n 20 mg tablet 06-04 00:00: 00 Yes 20mg Take 1 tablet by mouth at bedtime. [facility] SERTraline 50 mg tablet 06-04 00:00: 00 Yes [id number] 50mg Take 1 tablet by mouth daily. [facility] atorvastati n 20 mg tablet 06-04 00:00: 00 Yes 20mg Take 1 tablet by mouth at bedtime. [facility] SERTraline 50 mg tablet 06-04 00:00: 00 Yes [id number] 50mg Take 1 tablet by mouth daily. [facility] atorvastati n 20 mg tablet 06-04 00:00: 00 Yes 20mg Take 1 tablet by mouth at bedtime. [facility] SERTraline 50 mg tablet 06-04 00:00: 00 Yes [id number] 50mg Take 1 tablet by mouth daily. [facility] atorvastati n 20 mg tablet 06-04 00:00: 00 Yes 20mg Take 1 tablet by mouth at bedtime. [facility] SERTraline 50 mg tablet 06-04 00:00: 00 Yes [id number] 50mg Take 1 tablet by mouth daily. [facility] atorvastati n 20 mg tablet 06-04 00:00: 00 Yes 20mg Take 1 tablet by mouth at bedtime. [facility] SERTraline 50 mg tablet 06-04 00:00: 00 Yes [id number] 50mg Take 1 tablet by mouth daily. [facility] atorvastati n 20 mg tablet 06-04 00:00: 00 Yes 20mg Take 1 tablet by mouth at bedtime. [facility] SERTraline 50 mg tablet 06-04 00:00: 00 Yes [id number] 50mg Take 1 tablet by mouth daily. [facility] atorvastati n 20 mg tablet 06-04 00:00: 00 Yes 20mg Take 1 tablet by mouth at bedtime. [facility] SERTraline 50 mg tablet 06-04 00:00: 00 Yes [id number] 50mg Take 1 tablet by mouth daily. [facility] atorvastati n 20 mg tablet 06-04 00:00: 00 Yes 20mg Take 1 tablet by mouth at bedtime. [facility] SERTraline 50 mg tablet 06-04 00:00: 00 Yes [id number] 50mg Take 1 tablet by mouth daily. [facility] atorvastati n 20 mg tablet 06-04 00:00: 00 Yes 20mg Take 1 tablet by mouth at bedtime. [facility] SERTraline 50 mg tablet 06-04 00:00: 00 Yes [id number] 50mg Take 1 tablet by mouth daily. [facility] atorvastati n 20 mg tablet 06-04 00:00: 00 Yes 20mg Take 1 tablet by mouth at bedtime. [facility] SERTraline 50 mg tablet 06-04 00:00: 00 Yes [id number] 50mg Take 1 tablet by mouth daily. [facility] acetaminoph en-codeine (TYLENOL-CO DEINE #3) 300-30 mg tablet 01-22 00:00: 00 Yes 1{tbl} Take 1 tablet by mouth every 6 (six) hours as needed for Pain (scale 4-6). [facility] acetaminoph en-codeine (TYLENOL-CO DEINE #3) 300-30 mg tablet 01-22 00:00: 00 Yes 1{tbl} Take 1 tablet by mouth every 6 (six) hours as needed for Pain (scale 4-6). [facility] acetaminoph en-codeine (TYLENOL-CO DEINE #3) 300-30 mg tablet 01-22 00:00: 00 Yes 1{tbl} Take 1 tablet by mouth every 6 (six) hours as needed for Pain (scale 4-6). [facility] acetaminoph en-codeine (TYLENOL-CO DEINE #3) 300-30 mg tablet 01-22 00:00: 00 Yes 1{tbl} Take 1 tablet by mouth every 6 (six) hours as needed for Pain (scale 4-6). [facility] acetaminoph en-codeine (TYLENOL-CO DEINE #3) 300-30 mg tablet 01-22 00:00: 00 Yes 1{tbl} Take 1 tablet by mouth every 6 (six) hours as needed for Pain (scale 4-6). [facility] acetaminoph en-codeine (TYLENOL-CO DEINE #3) 300-30 mg tablet 01-22 00:00: 00 Yes 1{tbl} Take 1 tablet by mouth every 6 (six) hours as needed for Pain (scale 4-6). [facility] acetaminoph en-codeine (TYLENOL-CO DEINE #3) 300-30 mg tablet 01-22 00:00: 00 Yes 1{tbl} Take 1 tablet by mouth every 6 (six) hours as needed for Pain (scale 4-6). [facility] acetaminoph en-codeine (TYLENOL-CO DEINE #3) 300-30 mg tablet 01-22 00:00: 00 Yes 1{tbl} Take 1 tablet by mouth every 6 (six) hours as needed for Pain (scale 4-6). [facility] acetaminoph en-codeine (TYLENOL-CO DEINE #3) 300-30 mg tablet 01-22 00:00: 00 Yes 1{tbl} Take 1 tablet by mouth every 6 (six) hours as needed for Pain (scale 4-6). [facility] acetaminoph en-codeine (TYLENOL-CO DEINE #3) 300-30 mg tablet 01-22 00:00: 00 Yes 1{tbl} Take 1 tablet by mouth every 6 (six) hours as needed for Pain (scale 4-6). [facility] acetaminoph en-codeine (TYLENOL-CO DEINE #3) 300-30 mg tablet 01-22 00:00: 00 Yes 1{tbl} Take 1 tablet by mouth every 6 (six) hours as needed for Pain (scale 4-6). [facility] acetaminoph en-codeine (TYLENOL-CO DEINE #3) 300-30 mg tablet 01-22 00:00: 00 Yes 1{tbl} Take 1 tablet by mouth every 6 (six) hours as needed for Pain (scale 4-6). [facility] acetaminoph en-codeine (TYLENOL-CO DEINE #3) 300-30 mg tablet 01-22 00:00: 00 Yes 1{tbl} Take 1 tablet by mouth every 6 (six) hours as needed for Pain (scale 4-6). [facility] acetaminoph en-codeine (TYLENOL-CO DEINE #3) 300-30 mg tablet 01-22 00:00: 00 Yes 1{tbl} Take 1 tablet by mouth every 6 (six) hours as needed for Pain (scale 4-6). [facility] acetaminoph en-codeine (TYLENOL-CO DEINE #3) 300-30 mg tablet 01-22 00:00: 00 Yes 1{tbl} Take 1 tablet by mouth every 6 (six) hours as needed for Pain (scale 4-6). [facility] acetaminoph en-codeine (TYLENOL-CO DEINE #3) 300-30 mg tablet 01-22 00:00: 00 Yes 1{tbl} Take 1 tablet by mouth every 6 (six) hours as needed for Pain (scale 4-6). [facility] acetaminoph en-codeine (TYLENOL-CO DEINE #3) 300-30 mg tablet 01-22 00:00: 00 Yes 1{tbl} Take 1 tablet by mouth every 6 (six) hours as needed for Pain (scale 4-6). [facility] acetaminoph en-codeine (TYLENOL-CO DEINE #3) 300-30 mg tablet 01-22 00:00: 00 Yes 1{tbl} Take 1 tablet by mouth every 6 (six) hours as needed for Pain (scale 4-6). [facility] acetaminoph en-codeine (TYLENOL-CO DEINE #3) 300-30 mg tablet 01-22 00:00: 00 Yes 1{tbl} Take 1 tablet by mouth every 6 (six) hours as needed for Pain (scale 4-6). [facility] acetaminoph en-codeine (TYLENOL-CO DEINE #3) 300-30 mg tablet 01-22 00:00: 00 Yes 1{tbl} Take 1 tablet by mouth every 6 (six) hours as needed for Pain (scale 4-6). [facility] acetaminoph en-codeine (TYLENOL-CO DEINE #3) 300-30 mg tablet 01-22 00:00: 00 Yes 1{tbl} Take 1 tablet by mouth every 6 (six) hours as needed for Pain (scale 4-6). [facility] acetaminoph en-codeine (TYLENOL-CO DEINE #3) 300-30 mg tablet 01-22 00:00: 00 Yes 1{tbl} Take 1 tablet by mouth every 6 (six) hours as needed for Pain (scale 4-6). [facility] acetaminoph en-codeine (TYLENOL-CO DEINE #3) 300-30 mg tablet 01-22 00:00: 00 Yes 1{tbl} Take 1 tablet by mouth every 6 (six) hours as needed for Pain (scale 4-6). [facility] acetaminoph en-codeine (TYLENOL-CO DEINE #3) 300-30 mg tablet 01-22 00:00: 00 03-10 00:00 :00 No 1{tbl} Take 1 tablet by mouth every 6 (six) hours as needed for Pain (scale 4-6). [facility] acetaminoph en-codeine (TYLENOL-CO DEINE #3) 300-30 mg tablet 01-22 00:00: 00 03-10 00:00 :00 No 1{tbl} Take 1 tablet by mouth every 6 (six) hours as needed for Pain (scale 4-6). [facility] SIMETHICONE 80 MG ORAL CHEW 03-05 00:00: 00 Yes 1 Tab Oral PC+HSPRN [facility] PHENYTOIN SODIUM EXTENDED 100 MG ORAL CAP 03-05 00:00: 00 Yes 1 Cap Oral BID [facility] SIMETHICONE 80 MG ORAL CHEW 03-05 00:00: 00 Yes 1 Tab Oral PC+HSPRN [facility] PHENYTOIN SODIUM EXTENDED 100 MG ORAL CAP 03-05 00:00: 00 Yes 1 Cap Oral BID [facility] SIMETHICONE 80 MG ORAL CHEW 03-05 00:00: 00 Yes 1 Tab Oral PC+HSPRN [facility] PHENYTOIN SODIUM EXTENDED 100 MG ORAL CAP 03-05 00:00: 00 Yes 1 Cap Oral BID [facility] SIMETHICONE 80 MG ORAL CHEW 03-05 00:00: 00 Yes 1 Tab Oral PC+HSPRN [facility] PHENYTOIN SODIUM EXTENDED 100 MG ORAL CAP 03-05 00:00: 00 Yes 1 Cap Oral BID [facility] SIMETHICONE 80 MG ORAL CHEW 03-05 00:00: 00 Yes 1 Tab Oral PC+HSPRN [facility] PHENYTOIN SODIUM EXTENDED 100 MG ORAL CAP 03-05 00:00: 00 Yes 1 Cap Oral BID [facility] SIMETHICONE 80 MG ORAL CHEW 03-05 00:00: 00 Yes 1 Tab Oral PC+HSPRN [facility] PHENYTOIN SODIUM EXTENDED 100 MG ORAL CAP 03-05 00:00: 00 Yes 1 Cap Oral BID [facility] VIT27&CALCI UM-IRON-FA 60 MG (IRON)-1 MG ORAL TAB 03-05 00:00: 00 Yes Take one tablet by mouth daily [facility] DOCUSATE CALCIUM 240 MG ORAL CAP 03-05 00:00: 00 Yes Take one capsule by mouth daily as needed for constipati on [facility] FERROUS SULFATE 325 MG (65 MG IRON) ORAL TAB 03-05 00:00: 00 Yes Take one tablet by mouth twice daily [facility] VIT27&CALCI UM-IRON-FA 60 MG (IRON)-1 MG ORAL TAB 03-05 00:00: 00 Yes 1 Tab Oral DAILY [facility] SIMETHICONE 80 MG ORAL CHEW 03-05 00:00: 00 Yes 1 Tab Oral PC+HSPRN [facility] PHENYTOIN SODIUM EXTENDED 100 MG ORAL CAP 03-05 00:00: 00 Yes 1 Cap Oral BID [facility] VIT27&CALCI UM-IRON-FA 60 MG (IRON)-1 MG ORAL TAB 03-05 00:00: 00 Yes Take one tablet by mouth daily [facility] DOCUSATE CALCIUM 240 MG ORAL CAP 03-05 00:00: 00 Yes Take one capsule by mouth daily as needed for constipati on [facility] FERROUS SULFATE 325 MG (65 MG IRON) ORAL TAB 03-05 00:00: 00 Yes Take one tablet by mouth twice daily [facility] VIT27&CALCI UM-IRON-FA 60 MG (IRON)-1 MG ORAL TAB 03-05 00:00: 00 Yes 1 Tab Oral DAILY [facility] SIMETHICONE 80 MG ORAL CHEW 03-05 00:00: 00 Yes 1 Tab Oral PC+HSPRN [facility] PHENYTOIN SODIUM EXTENDED 100 MG ORAL CAP 03-05 00:00: 00 Yes 1 Cap Oral BID [facility] VIT27&CALCI UM-IRON-FA 60 MG (IRON)-1 MG ORAL TAB 03-05 00:00: 00 Yes Take one tablet by mouth daily [facility] DOCUSATE CALCIUM 240 MG ORAL CAP 03-05 00:00: 00 Yes Take one capsule by mouth daily as needed for constipati on [facility] FERROUS SULFATE 325 MG (65 MG IRON) ORAL TAB 03-05 00:00: 00 Yes Take one tablet by mouth twice daily [facility] VIT27&CALCI UM-IRON-FA 60 MG (IRON)-1 MG ORAL TAB 03-05 00:00: 00 Yes 1 Tab Oral DAILY [facility] SIMETHICONE 80 MG ORAL CHEW 03-05 00:00: 00 Yes 1 Tab Oral PC+HSPRN [facility] PHENYTOIN SODIUM EXTENDED 100 MG ORAL CAP 03-05 00:00: 00 Yes 1 Cap Oral BID [facility] VIT27&CALCI UM-IRON-FA 60 MG (IRON)-1 MG ORAL TAB 03-05 00:00: 00 Yes Take one tablet by mouth daily [facility] DOCUSATE CALCIUM 240 MG ORAL CAP 03-05 00:00: 00 Yes Take one capsule by mouth daily as needed for constipati on [facility] FERROUS SULFATE 325 MG (65 MG IRON) ORAL TAB 03-05 00:00: 00 Yes Take one tablet by mouth twice daily [facility] VIT27&CALCI UM-IRON-FA 60 MG (IRON)-1 MG ORAL TAB 03-05 00:00: 00 Yes 1 Tab Oral DAILY [facility] SIMETHICONE 80 MG ORAL CHEW 03-05 00:00: 00 Yes 1 Tab Oral PC+HSPRN [facility] PHENYTOIN SODIUM EXTENDED 100 MG ORAL CAP 03-05 00:00: 00 Yes 1 Cap Oral BID [facility] VIT27&CALCI UM-IRON-FA 60 MG (IRON)-1 MG ORAL TAB 03-05 00:00: 00 Yes Take one tablet by mouth daily [facility] DOCUSATE CALCIUM 240 MG ORAL CAP 03-05 00:00: 00 Yes Take one capsule by mouth daily as needed for constipati on [facility] FERROUS SULFATE 325 MG (65 MG IRON) ORAL TAB 03-05 00:00: 00 Yes Take one tablet by mouth twice daily [facility] VIT27&CALCI UM-IRON-FA 60 MG (IRON)-1 MG ORAL TAB 03-05 00:00: 00 Yes 1 Tab Oral DAILY [facility] SIMETHICONE 80 MG ORAL CHEW 03-05 00:00: 00 Yes 1 Tab Oral PC+HSPRN [facility] PHENYTOIN SODIUM EXTENDED 100 MG ORAL CAP 03-05 00:00: 00 Yes 1 Cap Oral BID [facility] VIT27&CALCI UM-IRON-FA 60 MG (IRON)-1 MG ORAL TAB 03-05 00:00: 00 Yes Take one tablet by mouth daily [facility] DOCUSATE CALCIUM 240 MG ORAL CAP 03-05 00:00: 00 Yes Take one capsule by mouth daily as needed for constipati on [facility] FERROUS SULFATE 325 MG (65 MG IRON) ORAL TAB 03-05 00:00: 00 Yes Take one tablet by mouth twice daily [facility] VIT27&CALCI UM-IRON-FA 60 MG (IRON)-1 MG ORAL TAB 03-05 00:00: 00 Yes 1 Tab Oral DAILY [facility] SIMETHICONE 80 MG ORAL CHEW 03-05 00:00: 00 Yes 1 Tab Oral PC+HSPRN [facility] PHENYTOIN SODIUM EXTENDED 100 MG ORAL CAP 03-05 00:00: 00 Yes 1 Cap Oral BID [facility] VIT27&CALCI UM-IRON-FA 60 MG (IRON)-1 MG ORAL TAB 03-05 00:00: 00 Yes Take one tablet by mouth daily [facility] DOCUSATE CALCIUM 240 MG ORAL CAP 03-05 00:00: 00 Yes Take one capsule by mouth daily as needed for constipati on [facility] FERROUS SULFATE 325 MG (65 MG IRON) ORAL TAB 03-05 00:00: 00 Yes Take one tablet by mouth twice daily [facility] VIT27&CALCI UM-IRON-FA 60 MG (IRON)-1 MG ORAL TAB 03-05 00:00: 00 Yes 1 Tab Oral DAILY [facility] SIMETHICONE 80 MG ORAL CHEW 03-05 00:00: 00 Yes 1 Tab Oral PC+HSPRN [facility] PHENYTOIN SODIUM EXTENDED 100 MG ORAL CAP 03-05 00:00: 00 Yes 1 Cap Oral BID [facility] VIT27&CALCI UM-IRON-FA 60 MG (IRON)-1 MG ORAL TAB 03-05 00:00: 00 Yes Take one tablet by mouth daily [facility] DOCUSATE CALCIUM 240 MG ORAL CAP 03-05 00:00: 00 Yes Take one capsule by mouth daily as needed for constipati on [facility] FERROUS SULFATE 325 MG (65 MG IRON) ORAL TAB 03-05 00:00: 00 Yes Take one tablet by mouth twice daily [facility] VIT27&CALCI UM-IRON-FA 60 MG (IRON)-1 MG ORAL TAB 03-05 00:00: 00 Yes 1 Tab Oral DAILY [facility] SIMETHICONE 80 MG ORAL CHEW 03-05 00:00: 00 Yes 1 Tab Oral PC+HSPRN [facility] PHENYTOIN SODIUM EXTENDED 100 MG ORAL CAP 03-05 00:00: 00 Yes 1 Cap Oral BID [facility] VIT27&CALCI UM-IRON-FA 60 MG (IRON)-1 MG ORAL TAB 03-05 00:00: 00 Yes Take one tablet by mouth daily [facility] DOCUSATE CALCIUM 240 MG ORAL CAP 03-05 00:00: 00 Yes Take one capsule by mouth daily as needed for constipati on [facility] FERROUS SULFATE 325 MG (65 MG IRON) ORAL TAB 03-05 00:00: 00 Yes Take one tablet by mouth twice daily [facility] VIT27&CALCI UM-IRON-FA 60 MG (IRON)-1 MG ORAL TAB 03-05 00:00: 00 Yes 1 Tab Oral DAILY [facility] SIMETHICONE 80 MG ORAL CHEW 03-05 00:00: 00 Yes 1 Tab Oral PC+HSPRN [facility] PHENYTOIN SODIUM EXTENDED 100 MG ORAL CAP 03-05 00:00: 00 Yes 1 Cap Oral BID [facility] VIT27&CALCI UM-IRON-FA 60 MG (IRON)-1 MG ORAL TAB 03-05 00:00: 00 Yes Take one tablet by mouth daily [facility] DOCUSATE CALCIUM 240 MG ORAL CAP 03-05 00:00: 00 Yes Take one capsule by mouth daily as needed for constipati on [facility] FERROUS SULFATE 325 MG (65 MG IRON) ORAL TAB 03-05 00:00: 00 Yes Take one tablet by mouth twice daily [facility] VIT27&CALCI UM-IRON-FA 60 MG (IRON)-1 MG ORAL TAB 03-05 00:00: 00 Yes 1 Tab Oral DAILY [facility] SIMETHICONE 80 MG ORAL CHEW 03-05 00:00: 00 Yes 1 Tab Oral PC+HSPRN [facility] PHENYTOIN SODIUM EXTENDED 100 MG ORAL CAP 03-05 00:00: 00 Yes 1 Cap Oral BID [facility] VIT27&CALCI UM-IRON-FA 60 MG (IRON)-1 MG ORAL TAB 03-05 00:00: 00 Yes Take one tablet by mouth daily [facility] DOCUSATE CALCIUM 240 MG ORAL CAP 03-05 00:00: 00 Yes Take one capsule by mouth daily as needed for constipati on [facility] FERROUS SULFATE 325 MG (65 MG IRON) ORAL TAB 03-05 00:00: 00 Yes Take one tablet by mouth twice daily [facility] VIT27&CALCI UM-IRON-FA 60 MG (IRON)-1 MG ORAL TAB 03-05 00:00: 00 Yes 1 Tab Oral DAILY [facility] SIMETHICONE 80 MG ORAL CHEW 03-05 00:00: 00 Yes 1 Tab Oral PC+HSPRN [facility] PHENYTOIN SODIUM EXTENDED 100 MG ORAL CAP 03-05 00:00: 00 Yes 1 Cap Oral BID [facility] VIT27&CALCI UM-IRON-FA 60 MG (IRON)-1 MG ORAL TAB 03-05 00:00: 00 Yes Take one tablet by mouth daily [facility] DOCUSATE CALCIUM 240 MG ORAL CAP 03-05 00:00: 00 Yes Take one capsule by mouth daily as needed for constipati on [facility] FERROUS SULFATE 325 MG (65 MG IRON) ORAL TAB 03-05 00:00: 00 Yes Take one tablet by mouth twice daily [facility] VIT27&CALCI UM-IRON-FA 60 MG (IRON)-1 MG ORAL TAB 03-05 00:00: 00 Yes 1 Tab Oral DAILY [facility] SIMETHICONE 80 MG ORAL CHEW 03-05 00:00: 00 Yes 1 Tab Oral PC[facility]HSPRN [facility] EXTENDED 100 MG ORAL CAP 03-05 00:00: 00 Yes 1 Cap Oral BID [facility] VIT27&CALCI UM-IRON-FA 60 MG (IRON)-1 MG ORAL TAB 03-05 00:00: 00 Yes Take one tablet by mouth daily [facility] DOCUSATE CALCIUM 240 MG ORAL CAP 03-05 00:00: 00 Yes Take one capsule by mouth daily as needed for constipati on [facility] FERROUS SULFATE 325 MG (65 MG IRON) ORAL TAB 03-05 00:00: 00 Yes Take one tablet by mouth twice daily [facility] VIT27&CALCI UM-IRON-FA 60 MG (IRON)-1 MG ORAL TAB 03-05 00:00: 00 Yes 1 Tab Oral DAILY [facility] SIMETHICONE 80 MG ORAL CHEW 03-05 00:00: 00 Yes 1 Tab Oral PC+HSPRN [facility] PHENYTOIN SODIUM EXTENDED 100 MG ORAL CAP 03-05 00:00: 00 Yes 1 Cap Oral BID [facility] VIT27&CALCI UM-IRON-FA 60 MG (IRON)-1 MG ORAL TAB 03-05 00:00: 00 Yes Take one tablet by mouth daily [facility] DOCUSATE CALCIUM 240 MG ORAL CAP 03-05 00:00: 00 Yes Take one capsule by mouth daily as needed for constipati on [facility] FERROUS SULFATE 325 MG (65 MG IRON) ORAL TAB 03-05 00:00: 00 Yes Take one tablet by mouth twice daily [facility] VIT27&CALCI UM-IRON-FA 60 MG (IRON)-1 MG ORAL TAB 03-05 00:00: 00 Yes 1 Tab Oral DAILY [facility] SIMETHICONE 80 MG ORAL CHEW 03-05 00:00: 00 Yes 1 Tab Oral PC+HSPRN [facility] PHENYTOIN SODIUM EXTENDED 100 MG ORAL CAP 03-05 00:00: 00 Yes 1 Cap Oral BID [facility] VIT27&CALCI UM-IRON-FA 60 MG (IRON)-1 MG ORAL TAB 03-05 00:00: 00 Yes Take one tablet by mouth daily [facility] DOCUSATE CALCIUM 240 MG ORAL CAP 03-05 00:00: 00 Yes Take one capsule by mouth daily as needed for constipati on [facility] FERROUS SULFATE 325 MG (65 MG IRON) ORAL TAB 03-05 00:00: 00 Yes Take one tablet by mouth twice daily [facility] VIT27&CALCI UM-IRON-FA 60 MG (IRON)-1 MG ORAL TAB 03-05 00:00: 00 Yes 1 Tab Oral DAILY [facility] SIMETHICONE 80 MG ORAL CHEW 03-05 00:00: 00 Yes 1 Tab Oral PC+HSPRN [facility] PHENYTOIN SODIUM EXTENDED 100 MG ORAL CAP 03-05 00:00: 00 Yes 1 Cap Oral BID [facility] VIT27&CALCI UM-IRON-FA 60 MG (IRON)-1 MG ORAL TAB 03-05 00:00: 00 Yes Take one tablet by mouth daily [facility] DOCUSATE CALCIUM 240 MG ORAL CAP 03-05 00:00: 00 Yes Take one capsule by mouth daily as needed for constipati on [facility] FERROUS SULFATE 325 MG (65 MG IRON) ORAL TAB 03-05 00:00: 00 Yes Take one tablet by mouth twice daily [facility] VIT27&CALCI UM-IRON-FA 60 MG (IRON)-1 MG ORAL TAB 03-05 00:00: 00 Yes 1 Tab Oral DAILY [facility] SIMETHICONE 80 MG ORAL CHEW 03-05 00:00: 00 Yes 1 Tab Oral PC+HSPRN [facility] PHENYTOIN SODIUM EXTENDED 100 MG ORAL CAP 03-05 00:00: 00 Yes 1 Cap Oral BID [facility] VIT27&CALCI UM-IRON-FA 60 MG (IRON)-1 MG ORAL TAB 03-05 00:00: 00 Yes Take one tablet by mouth daily [facility] VIT27&CALCI UM-IRON-FA 60 MG (IRON)-1 MG ORAL TAB 03-05 00:00: 00 Yes 1 Tab Oral DAILY [facility] SIMETHICONE 80 MG ORAL CHEW 03-05 00:00: 00 Yes 1 Tab Oral PC+HSPRN [facility] PHENYTOIN SODIUM EXTENDED 100 MG ORAL CAP 03-05 00:00: 00 Yes 1 Cap Oral BID [facility] VIT27&CALCI UM-IRON-FA 60 MG (IRON)-1 MG ORAL TAB 03-05 00:00: 00 Yes Take one tablet by mouth daily [facility] VIT27&CALCI UM-IRON-FA 60 MG (IRON)-1 MG ORAL TAB 03-05 00:00: 00 Yes 1 Tab Oral DAILY [facility] SIMETHICONE 80 MG ORAL CHEW 03-05 00:00: 00 Yes 1 Tab Oral PC+HSPRN [facility] PHENYTOIN SODIUM EXTENDED 100 MG ORAL CAP 03-05 00:00: 00 Yes 1 Cap Oral BID [facility] VIT27&CALCI UM-IRON-FA 60 MG (IRON)-1 MG ORAL TAB 03-05 00:00: 00 Yes Take one tablet by mouth daily [facility] VIT27&CALCI UM-IRON-FA 60 MG (IRON)-1 MG ORAL TAB 03-05 00:00: 00 Yes 1 Tab Oral DAILY [facility] SIMETHICONE 80 MG ORAL CHEW 03-05 00:00: 00 Yes 1 Tab Oral PC+HSPRN [facility] PHENYTOIN SODIUM EXTENDED 100 MG ORAL CAP 03-05 00:00: 00 Yes 1 Cap Oral BID [facility] VIT27&CALCI UM-IRON-FA 60 MG (IRON)-1 MG ORAL TAB 03-05 00:00: 00 Yes Take one tablet by mouth daily [facility] VIT27&CALCI UM-IRON-FA 60 MG (IRON)-1 MG ORAL TAB 03-05 00:00: 00 Yes 1 Tab Oral DAILY [facility] SIMETHICONE 80 MG ORAL CHEW 03-05 00:00: 00 Yes 1 Tab Oral PC+HSPRN [facility] PHENYTOIN SODIUM EXTENDED 100 MG ORAL CAP 03-05 00:00: 00 Yes 1 Cap Oral BID [facility] VIT27&CALCI UM-IRON-FA 60 MG (IRON)-1 MG ORAL TAB 03-05 00:00: 00 Yes Take one tablet by mouth daily [facility] VIT27&CALCI UM-IRON-FA 60 MG (IRON)-1 MG ORAL TAB 03-05 00:00: 00 Yes 1 Tab Oral DAILY [facility] SIMETHICONE 80 MG ORAL CHEW 03-05 00:00: 00 Yes 1 Tab Oral PC+HSPRN [facility] PHENYTOIN SODIUM EXTENDED 100 MG ORAL CAP 03-05 00:00: 00 Yes 1 Cap Oral BID [facility] VIT27&CALCI UM-IRON-FA 60 MG (IRON)-1 MG ORAL TAB 03-05 00:00: 00 Yes Take one tablet by mouth daily [facility] VIT27&CALCI UM-IRON-FA 60 MG (IRON)-1 MG ORAL TAB 03-05 00:00: 00 Yes 1 Tab Oral DAILY [facility] SIMETHICONE 80 MG ORAL CHEW 03-05 00:00: 00 Yes 1 Tab Oral PC+HSPRN [facility] PHENYTOIN SODIUM EXTENDED 100 MG ORAL CAP 03-05 00:00: 00 Yes 1 Cap Oral BID [facility] VIT27&CALCI UM-IRON-FA 60 MG (IRON)-1 MG ORAL TAB 03-05 00:00: 00 Yes Take one tablet by mouth daily [facility] VIT27&CALCI UM-IRON-FA 60 MG (IRON)-1 MG ORAL TAB 03-05 00:00: 00 Yes 1 Tab Oral DAILY [facility] SIMETHICONE 80 MG ORAL CHEW 03-05 00:00: 00 Yes 1 Tab Oral PC+HSPRN [facility] PHENYTOIN SODIUM EXTENDED 100 MG ORAL CAP 03-05 00:00: 00 Yes 1 Cap Oral BID [facility] VIT27&CALCI UM-IRON-FA 60 MG (IRON)-1 MG ORAL TAB 03-05 00:00: 00 Yes Take one tablet by mouth daily [facility] VIT27&CALCI UM-IRON-FA 60 MG (IRON)-1 MG ORAL TAB 03-05 00:00: 00 Yes 1 Tab Oral DAILY [facility] SIMETHICONE 80 MG ORAL CHEW 03-05 00:00: 00 Yes 1 Tab Oral PC+HSPRN [facility] PHENYTOIN SODIUM EXTENDED 100 MG ORAL CAP 03-05 00:00: 00 Yes 1 Cap Oral BID [facility] VIT27&CALCI UM-IRON-FA 60 MG (IRON)-1 MG ORAL TAB 03-05 00:00: 00 Yes Take one tablet by mouth daily [facility] VIT27&CALCI UM-IRON-FA 60 MG (IRON)-1 MG ORAL TAB 03-05 00:00: 00 Yes 1 Tab Oral DAILY [facility] SIMETHICONE 80 MG ORAL CHEW 03-05 00:00: 00 Yes 1 Tab Oral PC+HSPRN [facility] PHENYTOIN SODIUM EXTENDED 100 MG ORAL CAP 03-05 00:00: 00 Yes 1 Cap Oral BID [facility] VIT27&CALCI UM-IRON-FA 60 MG (IRON)-1 MG ORAL TAB 03-05 00:00: 00 Yes Take one tablet by mouth daily [facility] VIT27&CALCI UM-IRON-FA 60 MG (IRON)-1 MG ORAL TAB 03-05 00:00: 00 Yes 1 Tab Oral DAILY [facility] SIMETHICONE 80 MG ORAL CHEW 03-05 00:00: 00 Yes 1 Tab Oral PC+HSPRN [facility] PHENYTOIN SODIUM EXTENDED 100 MG ORAL CAP 03-05 00:00: 00 Yes 1 Cap Oral BID [facility] VIT27&CALCI UM-IRON-FA 60 MG (IRON)-1 MG ORAL TAB 03-05 00:00: 00 Yes Take one tablet by mouth daily [facility] VIT27&CALCI UM-IRON-FA 60 MG (IRON)-1 MG ORAL TAB 03-05 00:00: 00 Yes 1 Tab Oral DAILY [facility] SIMETHICONE 80 MG ORAL CHEW 03-05 00:00: 00 Yes 1 Tab Oral PC+HSPRN [facility] PHENYTOIN SODIUM EXTENDED 100 MG ORAL CAP 03-05 00:00: 00 Yes 1 Cap Oral BID [facility] SIMETHICONE 80 MG ORAL CHEW 03-05 00:00: 00 Yes 1 Tab Oral PC+HSPRN [facility] PHENYTOIN SODIUM EXTENDED 100 MG ORAL CAP 03-05 00:00: 00 Yes 1 Cap Oral BID [facility] SIMETHICONE 80 MG ORAL CHEW 03-05 00:00: 00 Yes 1 Tab Oral PC+HSPRN [facility] PHENYTOIN SODIUM EXTENDED 100 MG ORAL CAP 03-05 00:00: 00 Yes 1 Cap Oral BID [facility] SIMETHICONE 80 MG ORAL CHEW 03-05 00:00: 00 Yes 1 Tab Oral PC+HSPRN [facility] PHENYTOIN SODIUM EXTENDED 100 MG ORAL CAP 03-05 00:00: 00 Yes 1 Cap Oral BID [facility] SIMETHICONE 80 MG ORAL CHEW 03-05 00:00: 00 Yes 1 Tab Oral PC+HSPRN [facility] PHENYTOIN SODIUM EXTENDED 100 MG ORAL CAP 03-05 00:00: 00 Yes 1 Cap Oral BID [facility] SIMETHICONE 80 MG ORAL CHEW 03-05 00:00: 00 Yes 1 Tab Oral PC+HSPRN [facility] PHENYTOIN SODIUM EXTENDED 100 MG ORAL CAP 03-05 00:00: 00 Yes 1 Cap Oral BID [facility] SIMETHICONE 80 MG ORAL CHEW 03-05 00:00: 00 Yes 1 Tab Oral PC+HSPRN [facility] PHENYTOIN SODIUM EXTENDED 100 MG ORAL CAP 03-05 00:00: 00 Yes 1 Cap Oral BID [facility] SIMETHICONE 80 MG ORAL CHEW 03-05 00:00: 00 Yes 1 Tab Oral PC+HSPRN [facility] PHENYTOIN SODIUM EXTENDED 100 MG ORAL CAP 03-05 00:00: 00 Yes 1 Cap Oral BID [facility] SIMETHICONE 80 MG ORAL CHEW 03-05 00:00: 00 Yes 1 Tab Oral PC+HSPRN [facility] PHENYTOIN SODIUM EXTENDED 100 MG ORAL CAP 03-05 00:00: 00 Yes 1 Cap Oral BID [facility] SIMETHICONE 80 MG ORAL CHEW 03-05 00:00: 00 Yes 1 Tab Oral PC+HSPRN [facility] PHENYTOIN SODIUM EXTENDED 100 MG ORAL CAP 03-05 00:00: 00 Yes 1 [facility] DOCUSATE CALCIUM 240 MG ORAL CAP 03-05 00:00: 00 01-27 00:00 :00 No Take one capsule by mouth daily as needed for constipati on [facility] FERROUS SULFATE 325 MG (65 MG IRON) ORAL TAB 03-05 00:00: 00 01-27 00:00 :00 No Take one tablet by mouth twice daily [facility] DOCUSATE CALCIUM 240 MG ORAL CAP 03-05 00:00: 00 01-27 00:00 :00 No Take one capsule by mouth daily as needed for constipati on [facility] FERROUS SULFATE 325 MG (65 MG IRON) ORAL TAB 03-05 00:00: 00 01-27 00:00 :00 No Take one tablet by mouth twice daily [facility] Immunizations Ordered Immunization Name Filled Immunization Name Date Status Comments Source SARS-COV-2 COVID-19 MODERNA VACCINE 2021-04-19 00:00:00 Completed [facility] SARS-COV-2 COVID-19 MODERNA 12+ YRS VACCINE 2021-04-19 00:00:00 Completed [facility] SARS-COV-2 COVID-19 MODERNA VACCINE 2021-04-19 00:00:00 Completed [facility] SARS-COV-2 COVID-19 MODERNA VACCINE 2021-04-19 00:00:00 Completed [facility] SARS-COV-2 COVID-19 MODERNA VACCINE 2021-04-19 00:00:00 Completed [facility] SARS-COV-2 COVID-19 MODERNA VACCINE 2021-04-19 00:00:00 Completed [facility] SARS-COV-2 COVID-19 MODERNA VACCINE 2021-04-19 00:00:00 Completed [facility] SARS-COV-2 COVID-19 MODERNA VACCINE 2021-03-20 00:00:00 Completed [facility] SARS-COV-2 COVID-19 MODERNA 12+ YRS VACCINE 2021-03-20 00:00:00 Completed [facility] SARS-COV-2 COVID-19 MODERNA VACCINE 2021-03-20 00:00:00 Completed [facility] SARS-COV-2 COVID-19 MODERNA VACCINE 2021-03-20 00:00:00 Completed [facility] SARS-COV-2 COVID-19 MODERNA VACCINE 2021-03-20 00:00:00 Completed [facility] SARS-COV-2 COVID-19 MODERNA VACCINE 2021-03-20 00:00:00 Completed [facility] SARS-COV-2 COVID-19 MODERNA VACCINE 2021-03-20 00:00:00 Completed [facility] H1n1 Vaccine 2009-07-16 00:00:00 Completed [facility] H1n1 Vaccine 2009-07-16 00:00:00 Completed [facility] H1n1 Vaccine 2009-07-16 00:00:00 Completed [facility] H1n1 Vaccine 2009-07-16 00:00:00 Completed [facility] H1n1 Vaccine 2009-07-16 00:00:00 Completed [facility] H1n1 Vaccine 2009-07-16 00:00:00 Completed [facility] H1n1 Vaccine 2009-07-16 00:00:00 Completed [facility] H1n1 Vaccine Unknown Completed [facility] SARS-COV-2 COVID-19 MODERNA 12+ YRS VACCINE Unknown Completed [facility] H1n1 Vaccine Unknown Completed [facility] SARS-COV-2 COVID-19 MODERNA 12+ YRS VACCINE Unknown Completed [facility] SARS-COV-2 COVID-19 MODERNA 12+ YRS VACCINE Unknown Completed [facility] Vital Signs Vital Name Observation Time Observation Value Comments S ource Systolic blood pressure 2023-10-03 02:36:00 148 mm[Hg] [facility] Diastolic blood pressure 2023-10-03 02:36:00 99 mm[Hg] [facility] Heart rate 2023-10-03 02:36:00 86 /min [facility] Body temperature 2023-10-03 02:36:00 37.11 Cindi [facility] Respiratory rate 2023-10-03 02:36:00 16 /min [facility] Body height 2023-10-03 02:36:00 165.1 cm [facility] Body weight 2023-10-03 02:36:00 104.599 kg [facility] BMI 2023-10-03 02:36:00 38.37 kg/m2 [facility] Oxygen saturation in Arterial blood by Pulse oximetry 2023-10-03 02:36:00 100 /min [facility] Systolic blood pressure 2021-10-31 18:32:00 151 mm[Hg] [facility] Diastolic blood pressure 2021-10-31 18:32:00 109 mm[Hg] [facility] Heart rate 2021-10-31 18:32:00 92 /min [facility] Body temperature 2021-10-31 18:32:00 36.89 Cindi [facility] Respiratory rate 2021-10-31 18:32:00 16 /min [facility] Body height 2021-10-31 18:32:00 162.6 cm [facility] Body weight 2021-10-31 18:32:00 99.791 kg [facility] BMI 2021-10-31 18:32:00 37.76 kg/m2 [facility] Oxygen saturation in Arterial blood by Pulse oximetry 2021-10-31 18:32:00 100 /min [facility] Heart rate 2021-06-19 00:30:00 73 [facility] 2021-06-19 00:30:00 16 /min [facility] Oxygen saturation in Arterial blood by Pulse oximetry 2021-06-19 00:30:00 100 /min [facility] Systolic blood pressure 2021-06-19 00:30:00 135 mm[Hg] [facility] Diastolic blood pressure 2021-06-19 00:30:00 95 mm[Hg] [facility] Body temperature 2021-06-19 00:00:00 37.17 Cindi [facility] Body height 2021-06-18 19:35:00 162.6 cm [facility] Body weight 2021-06-18 19:35:00 106.142 kg [facility] BMI 2021-06-18 19:35:00 40.17 kg/m2 [facility] Systolic blood pressure 2021-04-05 13:45:00 123 mm[Hg] [facility] Diastolic blood pressure 2021-04-05 13:45:00 86 mm[Hg] [facility] Heart rate 2021-04-05 13:45:00 78 /[facility] 2021-04-05 13:45:00 36.72 Cindi [facility] Respiratory rate 2021-04-05 13:45:00 18 /min [facility] Body height 2021-04-05 13:45:00 162.6 [facility] 2021-04-05 13:45:00 106.142 kg [facility] BMI 2021-04-05 13:45:00 40.17 kg/m2 [facility] Systolic blood pressure 2021-03-29 14:19:00 134 mm[Hg] [facility] Diastolic blood pressure 2021-03-29 14:19:00 89 mm[Hg] [facility] Heart rate 2021-03-29 14:19:00 88 /min [facility] Body temperature 2021-03-29 14:19:00 36.89 Cindi [facility] Respiratory rate 2021-03-29 14:19:00 18 /min [facility] Body height 2021-03-29 14:19:00 162.6 cm [facility] Body weight 2021-03-29 14:19:00 108.047 kg [facility] BMI 2021-03-29 14:19:00 40.89 kg/m2 [facility] Systolic blood pressure 2021-03-10 19:16:00 134 mm[Hg] [facility] Diastolic blood pressure 2021-03-10 19:16:00 85 mm[Hg] [facility] Heart rate 2021-03-10 19:16:00 83 /min [facility] Body temperature 2021-03-10 19:16:00 36.94 Cindi [facility] Respiratory rate 2021-03-10 19:16:00 18 /min [facility] Body height 2021-03-10 19:16:00 162.6 cm [facility] Body weight 2021-03-10 19:16:00 107.14 kg [facility] BMI 2021-03-10 19:16:00 40.54 kg/m2 [facility] Systolic blood pressure 2021-02-24 19:05:00 139 mm[Hg] [facility] Diastolic blood pressure 2021-02-24 19:05:00 94 mm[Hg] [facility] Heart rate 2021-02-24 19:05:00 81 /min [facility] Body temperature 2021-02-24 19:04:00 36.78 Cindi [facility] Respiratory rate 2021-02-24 19:04:00 18 /min [facility] Body height 2021-02-24 19:04:00 162.6 cm [facility] Body weight 2021-02-24 19:04:00 107.049 kg [facility] BMI 2021-02-24 19:04:00 40.51 kg/m2 [facility] Systolic blood pressure 2021-02-22 10:00:00 138 mm[Hg] [facility] Diastolic blood pressure 2021-02-22 10:00:00 100 mm[Hg] [facility] Heart rate 2021-02-22 10:00:00 71 /min [facility] Respiratory rate 2021-02-22 10:00:00 13 /min [facility] Oxygen saturation in Arterial blood by Pulse oximetry 2021-02-22 10:00:00 98 /min [facility] Body temperature 2021-02-22 04:21:04 37.28 Cindi [facility] Body height 2021-02-22 02:24:00 162.6 cm [facility] Body weight 2021-02-22 02:24:00 104.327 kg [facility] BMI 2021-02-22 02:24:00 39.48 kg/m2 [facility] Systolic blood pressure 2021-01-27 20:31:00 145 mm[Hg] [facility] Diastolic blood pressure 2021-01-27 20:31:00 91 mm[Hg] [facility] Heart rate 2021-01-27 20:31:00 84 /min [facility] Body temperature 2021-01-27 20:25:00 36.83 Cindi [facility] Respiratory rate 2021-01-27 20:25:00 18 /min [facility] Body height 2021-01-27 20:25:00 162.6 cm [facility] Body weight 2021-01-27 20:25:00 108.41 kg [facility] BMI 2021-01-27 20:25:00 41.02 kg/m2 [facility] Systolic blood pressure 2021-01-19 22:16:47 128 mm[Hg] [facility] Diastolic blood pressure 2021-01-19 22:16:47 89 mm[Hg] [facility] Heart rate 2021-01-19 22:16:47 71 /min [facility] Body temperature 2021-01-19 22:16:47 37.72 Cindi [facility] Respiratory rate 2021-01-19 22:16:47 18 /min [facility] Oxygen saturation in Arterial blood by Pulse oximetry 2021-01-19 22:16:47 100 /min [facility] Body weight 2021-01-19 18:09:00 106.142 kg [facility] BMI 2021-01-19 18:09:00 40.17 kg/m2 [facility] Systolic blood pressure 2020-11-11 01:09:43 147 mm[Hg] [facility] Diastolic blood pressure 2020-11-11 01:09:43 96 mm[Hg] [facility] Heart rate 2020-11-11 01:09:43 86 /min [facility] Body temperature 2020-11-11 01:09:43 37.28 [facility] [facility] Respiratory rate 2020-11-11 01:09:43 18 /min [facility] Oxygen saturation in Arterial blood by Pulse oximetry 2020-11-11 01:09:43 100 /min [facility] Body weight 2020-11-11 00:06:00 106.142 kg [facility] BMI 2020-11-11 00:06:00 40.17 kg/m2 [facility] Systolic blood pressure 2020-11-11 01:09:43 147 mm[Hg] [facility] Diastolic blood pressure 2020-11-11 01:09:43 96 mm[Hg] [facility] Heart rate 2020-11-11 01:09:43 86 /min [facility] Body temperature 2020-11-11 01:09:43 37.28 Cindi [facility] Respiratory rate 2020-11-11 01:09:43 18 /min [facility] Oxygen saturation in Arterial blood by Pulse oximetry 2020-11-11 01:09:43 100 /min [facility] Body weight 2020-11-11 00:06:00 106.142 kg [facility] BMI 2020-11-11 00:06:00 40.17 kg/m2 [facility] Systolic blood pressure 2019-12-16 21:22:00 132 mm[Hg] [facility] Diastolic blood pressure 2019-12-16 21:22:00 87 mm[Hg] [facility] Heart rate 2019-12-16 21:22:00 83 /min [facility] Body height 2019-12-16 21:22:00 162.6 cm [facility] Body weight 2019-12-16 21:22:00 106.142 kg [facility] BMI 2019-12-16 21:22:00 40.17 kg/m2 [facility] Systolic blood pressure 2019-12-16 21:22:00 132 mm[Hg] [facility] Diastolic blood pressure 2019-12-16 21:22:00 87 mm[Hg] [facility] Heart rate 2019-12-16 21:22:00 83 /min [facility] Body height 2019-12-16 21:22:00 162.6 cm [facility] Body weight 2019-12-16 21:22:00 106.142 kg [facility] BMI 2019-12-16 21:22:00 40.17 kg/m2 [facility] Procedures Procedure Date / Time Performed Performing Clinician Source ASSIGNMENT OF BENEFITS 2023-10-03 03:40:11 Docto r Unassigned, [place] [facility] RAPID STREP SCREEN FOR GROUP A 2023-10-03 02:55:00 Luke Maurer [facility] RAPID INFLUENZA A/B 2023-10-03 02:55:00 Brice Maurer [facility] COVID-19 (ID NOW RAPID TESTING) 2023-10-03 02:55:00 Luke Maurer [facility] CONSENT/REFUSAL FOR DIAGNOSIS AND TREATMENT 2023-10-03 02:16:20 Doctor Unassigned, [place] [facility] REFERRAL- REQUEST/RESPONSE 2022-12-20 05:01:00 Doctor Unassigned, [place] [facility] NOTICE OF PRIVACY PRACTICES 2021-10-31 18:23:05 Doctor Unassigned, [place] [facility] CONSENT/REFUSAL FOR DIAGNOSIS AND TREATMENT 2021-10-31 18:20:02 Doctor Unassigned, [place] [facility] CT ABDOMEN PELVIS W CONTRAST 2021-06-18 22:53:18 Nohemi Dinh [facility] ASSIGNMENT OF BENEFITS 2021-06-18 20:28:15 Docto r Unassigned, [place] [facility] XR ABDOMEN 1 VW 2021-06-18 20:23:37 Karlee Gomez [facility] POCT TEST 2021-06-18 20:10:00 Berkley Gomez ra [facility] URINALYSIS 2021-06-18 20:09:00 [facility] 2021-06-18 20:08:00 Karlee Gomez [facility] HEPATIC FUNCTION PANEL (97335) (ALB,T.PRO,BILI T,BU/BC,ALT,AST,ALK PHOS) 2021-06-18 20:08:00 Karlee Gomze [facility] BASIC METABOLIC PANEL (NA, K, CL, CO2, GLUCOSE, BUN, CREATININE, CA) 2021-06-18 20:08:00 Karlee Gomez [facility] CBC WITH DIFF 2021-06-18 20:08:00 [facility]/REFUSAL FOR DIAGNOSIS AND TREATMENT 2021-06-18 19:15:28 Doctor Unassigned, [place] [facility] POCT TEST 2021-03-29 14:12:00 Tasha De Oliveira [facility] MANUAL TESTER CLINIC ULTRASOUND 2021-03-29 05:01:00 Doc tor Unassigned, [place] [facility] POCT TEST 2021-02-24 00:00:00 Tasha De Oliveira [facility] COMP. METABOLIC PANEL (09216) 2021-02-22 04:38:00 Fredo Hogue [facility] CT ABDOMEN PELVIS W CONTRAST 2021-02-22 04:14:23 Riri Isaacs [facility] LIPASE 2021-02-22 03:30:00 Fredo Hogue [facility] CBC WITH DIFF 2021-02-22 03:30:[address] [facility] URINALYSIS 2021-02-22 03:30:00 Fredo Hogue [facility] POCT TEST 2021-02-22 03:30:00 Fredo Hogue [facility] CONSENT/REFUSAL FOR DIAGNOSIS AND TREATMENT 2021-02-22 02:09:58 Doctor Unassigned, [place] [facility] ASSIGNMENT OF BENEFITS 2021-01-27 20:14:09 Docto r Unassigned, [place] [facility] REFERRAL- REQUEST/RESPONSE 2021-01-22 05:01:00 Doctor Unassigned, [place] [facility] CT ABDOMEN PELVIS W CONTRAST 2021-01-19 21:04:54 Sam Evans [facility] POCT TEST 2021-01-19 20:54:00 Sam Evans [facility] URINALYSIS 2021-01-19 20:38:00 Sam Evans [facility] COMP. METABOLIC PANEL ([id number]) 2021-01-19 20:36:00 Sam Evans [facility] CBC WITH DIFF 2021-01-19 20:36:00 Sam Evans [facility] NOTICE OF PRIVACY PRACTICES 2021-01-19 18:00:58 Doctor Unassigned, [place] [facility] CONSENT/REFUSAL FOR DIAGNOSIS AND TREATMENT 2021-01-19 17:56:54 Doctor Unassigned, [place] [facility] URINALYSIS 2020-11-11 00:46:00 Nohemi Dinh [facility] NOTICE OF PRIVACY PRACTICES 2020-11-11 00:01:32 Doctor Unassigned, [place] [facility] CONSENT/REFUSAL FOR DIAGNOSIS AND TREATMENT 2020-11-10 23:59:08 Doctor Unassigned, [place] [facility] INSURANCE 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 2020-02-20 05:01:00 Doc genia Unassigned, [place] [facility] AUTHORIZATION FOR RELEASE OF PHI 2020-02-10 05:01:00 Doctor Unassigned, [place] [facility] INSURANCE 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 2020-01-31 05:01:00 Doc genia Unassigned, [place] [facility] XR KNEE <3 VW RIGHT 2019-12-16 21:34:01 Maia Shrestha [facility] ASSIGNMENT OF BENEFITS 2019-12-16 21:15:03 Docto r Unassigned, [place] [facility] Encounters Start Date/Time End Date/Time Encounter Type Admission Type Attending [facility] Facility Care Department Encounter ID Source 2021-08-02 23:28:18 Emergency [facility] [id number] [facility] 2021-08-01 20:45:33 Emergency [facility] [id number] [facility] 2021-08-01 14:07:05 Emergency [facility] [id number] [facility] 2021-07-31 22:40:16 Emergency [facility] [id number] [facility] 2023-10-06 00:00:00 2023-10-06 00:00:00 Outpatient GC_GCBZW_Ka diyala_S PRIV PRIV [id number] [facility] 2023-10-02 20:39:00 2023-10-02 22:12:00 Emergency LUKE PHILLIPS [facility] ERT [id number] [facility] 2023-10-02 20:39:00 2023-10-02 22:12:00 Emergency Luke Maurer [facility] 1.2.840.114 350.1.13.10 4.2.7.2.686 [id number] [facility] 2023-09-08 00:00:00 2023-09-08 00:00:00 Outpatient GC_GCBZW_Ka diyala_S PRIV PRIV [id number] [facility] 2023-07-31 00:00:00 2023-07-31 00:00:00 Outpatient GC_GCBZW_Ka diyala_S PRIV PRIV [id number] [facility] 2023-07-27 00:00:00 2023-07-27 00:00:00 Outpatient GC_GCBZW_Ka diyala_S PRIV PRIV [id number] [facility] 2023-01-25 09:30:00 2023-01-25 09:30:00 Outpatient KEYSHA SANZ ELISHA [facility] [id number] [facility] 2023-01-11 10:30:00 2023-01-11 10:30:00 Outpatient KEYSHA SANZ ELISHA [facility] [id number] [facility] 2022-12-26 10:05:34 2022-12-26 10:05:34 Outpatient [facility] [id number] Ti Foley Macario 2022-12-20 00:00:00 2022-12-20 00:00:00 Orders Only Doctor Unassigned, [place] [facility] 1.2.840.114 350.1.13.10 4.2.7.2.686 [id number] [id number] [facility] 2022-12-19 09:12:54 2022-12-19 09:12:54 Outpatient [facility] [id number] Ti F Macario 2021-11-02 14:32:00 2021-11-02 14:48:00 Emergency EM Harris, Jose [facility] SKYLA [id number] [facility] 2021-11-02 14:32:00 2021-11-02 14:48:00 Emergency EM Harris, Jose [facility] [id number] [facility] 2021-10-31 12:33:00 2021-10-31 13:01:00 Emergency X KARLEE GOMEZ [facility] ERT [id number] [facility] 2021-10-31 12:33:00 2021-10-31 13:01:00 Emergency Karlee Gomez [facility] 1.2.840.114 350.1.13.10 4.2.7.2.686 [id number] [facility] 2021-10-31 00:00:00 2021-10-31 00:00:00 Orders Only Doctor Unassigned, [place] [facility] 1.2.840.114 350.1.13.10 4.2.7.2.686 [id number] [id number] [facility] 2021-06-18 14:44:00 2021-06-18 19:42:00 Emergency Nohemi Dinh [facility] 1.2840.114 350.1.13.10 4.2.7.2.686 [id number] [facility] 2021-06-14 00:00:00 2021-06-14 00:00:00 [address] 1..114 350.1.13.10 4.2.7.2.686 [id number] [facility] 2021-04-28 13:30:00 2021-04-28 13:30:00 Outpatient TASHA MORROW [facility] [id number] [facility] 2021-04-15 14:00:00 2021-04-15 14:00:00 Outpatient KILEY COHEN [facility] [id number] [facility] 2021-04-12 08:00:00 2021-04-12 08:00:00 Outpatient KEYSHA SANZ [facility] [id number] [facility] 2021-04-05 08:36:11 2021-04-05 09:07:09 Office Visit Tasha De Oliveira [facility] 1..114 350.1.13.10 4.2.7.2.686 [id number] [facility] 2021-04-05 08:45:00 2021-04-05 08:45:00 Outpatient R TASHA DE OLIVEIRA [facility] [id number] [facility] 2021-04-02 00:00:00 2021-04-02 00:00:00 Telephone Tasha De Oliveira [facility] 1.2.840.114 350.1.13.10 4.2.7.2.686 [id number] [facility] 2021-03-29 08:54:36 2021-03-29 09:35:27 Office Visit Tasha De Oliveira [facility] 1.2.840.114 350.1.13.10 4.2.7.2.686 [id number] [facility] 2021-03-29 09:00:00 2021-03-29 09:00:[address] [facility] [id number] [facility] 2021-03-29 00:00:00 2021-03-29 00:00:00 Orders Only Doctor Unassigned, [place] [facility] 1.2.840.114 350.1.13.10 4.2.7.2.686 [id number] [id number] [facility] 2021-03-22 00:00:00 2021-03-22 00:00:00 Patient Secure Msg Doctor Unassigned, [place] [facility] 1.2.840.114 350.1.13.10 4.2.7.2.686 [id number] [facility] 2021-03-19 11:00:00 2021-03-19 11:00:00 Outpatient R TASHA DE OLIVEIRA [facility] [id number] [facility] 2021-03-18 00:00:00 2021-03-18 00:00:00 Telephone Alvino [facility] 1.2.840.114 350.1.13.10 4.2.7.2.686 [id number] [facility] 2021-03-10 13:52:09 2021-03-10 14:30:52 Office Visit Tasha De Oliveira [facility] 1.2.840.114 350.1.13.10 4.2.7.2.686 [id number] [facility] 2021-03-10 14:15:00 2021-03-10 14:15:00 Outpatient R TASHA DE OLIVEIRA [facility] [id number] [facility] 2021-03-02 00:00:00 2021-03-02 00:00:00 Telephone Tasha De Oliveira [facility] 1.2.840.114 350.1.13.10 4.2.7.2.686 [id number] [facility] 2021-02-24 13:22:56 2021-02-24 14:21:21 Office Visit Tasha De Oliveira [facility] 1.2.840.114 350.1.13.10 4.2.7.2.686 [id number] [facility] 2021-02-24 13:30:00 2021-02-24 13:30:00 Outpatient R TASHA DE OLIVEIRA [facility] [id number] [facility] 2021-02-21 22:04:00 2021-02-22 05:32:00 Emergency Riri Isaacs [facility] 1.2.840.114 350.1.13.10 4.2.7.2.686 [id number] [facility] 2021-01-27 15:15:37 2021-01-27 16:25:23 Office Visit Tasha De Oliveira [facility] 1.2.840.114 350.1.13.10 4.2.7.2.686 [id number] [facility] 2021-01-27 15:00:00 2021-01-27 15:00:00 Outpatient Aravind TASHA DE OLIVEIRA [facility] [id number] [facility] 2021-01-27 00:00:00 2021-01-27 00:00:00 Orders Only Doctor Unassigned, [place] [facility] 1.2.840.114 350.1.13.10 4.2.7.2.686 [id number] [id number] [facility] 2021-01-22 00:00:00 2021-01-22 00:00:00 Orders Only Doctor Unassigned, [place] [facility] 1.2.840.114 350.1.13.10 4.2.7.2.686 [id number] [id number] [facility] 2021-01-19 13:10:00 2021-01-19 17:27:00 Emergency Sam Evans [facility] 1.2.840.114 350.1.13.10 4.2.7.2.686 [id number] [facility] 2020-12-21 00:00:00 2020-12-21 00:00:00 Patient Outreach Fredrick Mina [facility] 1.2.840.114 350.1.13.10 4.2.7.2.686 [id number] [facility] 2020-11-10 18:08:00 2020-11-10 20:09:00 Emergency Nohemi Dinh [facility] 1.2.840.114 350.1.13.10 4.2.7.2.686 [id number] [facility] 2020-11-10 18:08:00 2020-11-10 20:09:00 Emergency Nohemi Dinh [facility] 1.2.840.114 350.1.13.10 4.2.7.2.686 [id number] 2020-02-20 00:00:00 2020-02-20 00:00:00 Orders Only Doctor Unassigned, [place] [facility] 1.2.840.114 350.1.13.10 4.2.7.2.686 [id number] [id number] [facility] 2020-02-20 00:00:00 2020-02-20 00:00:00 Orders Only Doctor Unassigned, [place] [facility] 1.2.840.114 350.1.13.10 4.2.7.2.686 [id number] 2020-02-10 00:00:00 2020-02-10 00:00:00 Orders Only Doctor Unassigned, [place] [facility] 1.2.840.114 350.1.13.10 4.2.7.2.686 [id number] [id number] [facility] 2020-02-10 00:00:00 2020-02-10 00:00:00 Orders Only Doctor Unassigned, [place] [facility] 1.2.840.114 350.1.13.10 4.2.7.2.686 [id number] [id number] 2020-01-31 00:00:00 2020-01-31 00:00:00 Orders Only Doctor Unassigned, [place] [facility] 1.2.840.114 350.1.13.10 4.2.7.2.686 [id number] [id number] [facility] 2020-01-31 00:00:00 2020-01-31 00:00:00 Orders Only Doctor Unassigned, [place] [facility] 1.2.840.114 350.1.13.10 4.2.7.2.686 [id number] 2020-01-29 00:00:00 2020-01-29 00:00:00 Telephone Anton Williamson [facility] [place] 1.2.840.114 350.1.13.10 4.2.7.2.686 [id number] [facility] 2020-01-29 00:00:00 2020-01-29 00:00:00 Telephone Anton Williamson [facility] [place] 1.2.840.114 350.1.13.10 4.2.7.2.686 [id number] 2020-01-28 00:00:00 2020-01-28 00:00:00 Telephone Anton Williamson [facility] [place] 1.2.840.114 350.1.13.10 4.2.7.2.686 [id number] [facility] 2020-01-28 00:00:00 2020-01-28 00:00:00 Telephone Anton Williamson [facility] [place] 1.2.840.114 350.1.13.10 4.2.7.2.686 [id number] 2019-12-26 00:00:00 2019-12-26 00:00:00 Telephone Anton Williamson [facility] [place] 1.2.840.114 350.1.13.10 4.2.7.2.686 [id number] [facility] 2019-12-26 00:00:00 2019-12-26 00:00:00 Telephone Anton Williamson [facility] [place] 1.2.840.114 350.1.13.10 4.2.7.2.686 [id number] [facility] 2019-12-26 00:00:00 2019-12-26 00:00:00 Telephone Anton Williamson [facility] [place] 1.2.840.114 350.1.13.10 4.2.7.2.686 [id number] 2019-12-26 00:00:00 2019-12-26 00:00:00 Telephone Anton Williamson [facility] 1.2.840.114 350.1.13.10 4.2.7.2.686 [id number] 2019-12-16 16:15:48 2019-12-17 10:13:00 Office Visit Anton Williamson [facility] 1.2.840.114 350.1.13.10 4.2.7.2.686 [id number] [facility] 2019-12-16 16:15:48 2019-12-17 10:13:00 Office Visit Anton Williamson [facility] 1.2.840.114 350.1.13.10 4.2.7.2.686 [id number] 2019-12-16 16:34:01 2019-12-16 23:59:00 Outpatient R MAIA SHRESTHA [facility] [id number] [facility] 2019-12-16 16:34:00 2019-12-16 23:59:00 Hospital Encounter Maia Shrestha [facility] 1.2.840.114 350.1.13.10 4.2.7.2.686 [id number] [facility] 2019-12-16 00:00:00 2019-12-16 00:00:00 Orders Only Doctor Unassigned, [place] [facility] 1.2.840.114 350.1.13.10 4.2.7.2.686 [id number] [facility] Results Test Description Test Time Test Comments Results Result Co mments Source CT/NG, NAAT, [id number] 19:38:21* Test Item Value Reference Range Interpretation Comme nts CHLAMYDIA, NAAT, URINE (test code = 19590) NEGATIVE NEGATIVE Testing is perfo rmed with 5 MinutesAS 6800/8800 systems usingreal-time polymerase chain reaction (PCR) method. A negative result does not exclude low level infection, specimensampling error, or collection error. GONORRHEA, NAAT, URINE (test code = 04215) NEGATIVE NEGATIVE Testing is perfo rmed with Tanja ROSA 6800/8800 systems usingreal-time polymerase chain reaction (PCR) method. A negative result does not exclude low level infection, specimensampling error, or collection error. HPV HIGH RISK WITH GENOTYPE, [id number] 16:46:52* Test Item Value Reference Range Interpretation Comme nts HPV HIGH RISK INTERP (test code = 83887) NEGATIVE NEGATIVE HPV 16 (test code = 81699) NEGATIVE HPV 18 (test code = 63387) NEGATIVE HPV, HR, OTHER GENOTYPES (test code = 56460) NEGATIVE Testing methodol ogy is real-time PCR utilizing hydrolysis probes with the Tanja Rosa 4800 system. The test individually detects genotypes 16 and 18, as well as the other 12 high risk types (31,33,35,39,45,51,52,56 ,58,59,66,68). The expected result is negative. A negative result does not rule out the presence of HPV not included in the genotype set, a low level of infection or specimen sampling error. [facility] has important pathology staff changes effective 11/30/2022. New pathology staff will provide uninterrupted, excellent patient care and clinical consultation. See URL: [email or web address]. UNLESS OTHERWISE INDICATED, ALL TESTING PERFORMED AT [facility] [address] [place] [address] MACHINE VENEER REPAIRER: DEVIN BURGOS M.D. CLIA NUMBER [id number] [facility] [place]. [id number] VAGINAL PATHOGENS DNA [id number] 15:21:32* Test Item Value Reference Range Interpretation Comme nts MARIYA SPECIES (test code = 05755) NEGATIVE NEGATIVE G. VAGINALIS (test code = 21136) POSITIVE NEGATIVE A T. VAGINALIS (test code = ) NEGATIVE NEGATIVE Note: The BD [facility] ir VPIII Microbial Identification Testis a DNA probe test intended for use in the detectionand identification of Mariya species, Gardnerellavaginalis and Trichomonas vaginalis nucleic acid. HIV 1/2 4TH GEN, RFLX [id number] 04:19:46* Test Item Value Reference Range Interpretation Comme nts HIV 1/2 4TH GEN, RFLX CONF ( test code = 3514) NON-REACTIVE NON-REACTIVE [id number] 03:59:02* Test Item Value Reference Range Interpretation Comme nts RPR RESULT (test code = 3501) NON-REACTIVE NON-REACTIVE RPR TITER (test code = 3500) NOT INDIC. TITER NOT INDIC. [facility] has importan t pathology staff changes effective 11/30/2022. New pathology staff will provide uninterrupted, excellent patient care and clinical consultation. See URL: [email or web address]. UNLESS OTHERWISE INDICATED, ALL TESTING PERFORMED AT [facility] [address] [place] [address] MACHINE VENEER REPAIRER: DEVIN BURGOS M.D. CLIA NUMBER [id number] [facility] [place]. [id number] HEPATIC FUNCTION PANEL (27692) (ALB,T.PRO,BILI T,BU/BC,ALT,AST,ALK PHOS) 2021-06-18 20:35:07* Test Item Value Reference Range Interpretation Comme [facility] TOTAL BILI (test code = 8537522948) 0.3 mg/dL 0.1-1.1 BILI UNCON (test code = 2302944761) 0.3 mg/dL 0.1-1.1 BILI CONJ (test code = 4412853840) 0.0 mg/dL 0.0-0.3 T PROTEIN (test code = 2437871968) 7.6 g/dL 6.3-8.2 ALBUMIN (test code = 2122626540) 4.3 g/dL 3.5-5.0 ALK PHOS (test code = 9417413511) 77 U/L 34-122 ALTv (test code = 1742-6) 42 U/L 5-35 H AST(SGOT) (test code = 9946746771) 33 U/L 13-40 Lab Interpretation (test cod e = 19937-9) [facility] (ALB,T.PRO,BILI T,BU/BC,ALT,AST,ALK PHOS)2021-06-18 20:35:07* Test Item Value Reference Range Interpretation Comme [facility] TOTAL BILI (test code = 7972268879) 0.3 mg/dL 0.1-1.1 BILI UNCON (test code = 7755294781) 0.3 mg/dL 0.1-1.1 BILI CONJ (test code = 6600680125) 0.0 mg/dL 0.0-0.3 T PROTEIN (test code = 9769819078) 7.6 g/dL 6.3-8.2 ALBUMIN (test code = 1313069410) 4.3 g/dL 3.5-5.0 ALK PHOS (test code = 4729643140) 77 U/L 34-122 ALTv (test code = 1742-6) 42 U/L 5-35 H AST(SGOT) (test code = 4008350706) 33 U/L 13-40 Lab Interpretation (test cod e = 19932-6) Abnormal [facility] METABOLIC PANEL (NA, K, CL, CO2, GLUCOSE, BUN, CREATININE, CA)2021-06-18 20:34:47* Test Item Value Reference Range Interpretation Comme nts NA (test code = 0305311105) 136 mmol/L 135-145 K (test code = 0678868978) 4.3 mmol/L 3.5-5.0 CL (test code = 5957336575) 105 mmol/L 98-108 CO2 TOTAL (test code = 0431728741) 24 mmol/L 23-31 AGAP (test code = 7407692374) 2-16 BUN (test code = 3271871231) 9 mg/dL 7-23 GLUCOSE (test code = 9914501030) 112 mg/dL 70-110 H CREATININE (test code = 7977533044) 0.80 mg/dL 0.50-1.04 CALCIUM (test code = 5974176749) 8.8 mg/dL 8.6-10.6 eGFR (test code = 0019793175) mL/min/1.73m2 ISAMAR (test code = ISAMAR) Association of [...] or abnormalities in imaging tests). Lab Interpretation (test code = 54847-8) [facility]:47* Test Item Value Reference Range Interpretation Comme nts LIPASE (test code = 2441106820) 74 U/L 0-220 Lab Interpretation (test cod e = 65972-3) [facility] [facility] (NA, K, CL, CO2, GLUCOSE, BUN, CREATININE, CA)2021-06-18 20:34:47* Test Item Value Reference Range Interpretation Comme nts NA (test code = 8865765594) 136 mmol/L 135-145 K (test code = 4665705126) 4.3 mmol/L 3.5-5.0 CL (test code = 1907235632) 105 mmol/L 98-108 CO2 TOTAL (test code = 1437891028) 24 mmol/L 23-31 AGAP (test code = 1818278827) 2-16 BUN (test code = 5790056859) 9 mg/dL 7-23 GLUCOSE (test code = 8857834337) 112 mg/dL 70-110 H CREATININE (test code = 5854112367) 0.80 mg/dL 0.50-1.04 CALCIUM (test code = 2047484974) 8.8 mg/dL 8.6-10.6 eGFR (test code = 6793762526) mL/min/1.73m2 ISAMAR (test code = ISAMAR) Association of [...] or abnormalities in imaging tests). Lab Interpretation (test code = 68654-9) [facility] 20:34:47* Test Item Value Reference Range Interpretation Comme nts LIPASE (test code = 3733360406) 74 U/L 0-220 Lab Interpretation (test cod e = 64635-1) Normal [facility] WITH SOFR6510-79-79 20:27:26* Test Item Value Reference Range Interpretation Comme nts WBC (test code = 6690-2) See_Comment [Automated [employer]] The system which generated this result transmitted reference range: 4.30 - 11.10 10*3/?L. The reference range was not used to interpret this result as normal/abnormal. RBC (test code = 789-8) See_Comment [Automated [employer] ge] The system which generated this result transmitted reference range: 3.93 - 5.25 10*6/?L. The reference range was not used to interpret this result as normal/abnormal. HGB (test code = 718-7) 12.3 g/dL 11.6-15.0 HCT (test code = 4544-3) 38.2 % 35.7-45.2 MCV (test code = 787-2) 89.0 fL 80.6-95.5 MCH (test code = 785-6) 28.7 pg 25.9-32.8 MCHC (test code = 786-4) 32.2 g/dL 31.6-35.1 RDW-SD (test code = 25342-2) 46.2 fL 39.0-49.9 RDW-CV (test code = 788-0) 14.2 % 12.0-15.5 PLT (test code = 777-3) See_Comment [Automated [employer]] The system which generated this result transmitted reference range: 166 - 358 10*3/?L. The reference range was not used to interpret this result as normal/abnormal. MPV (test code = 05645-2) 11.3 fL 9.5-12.9 NRBC/100 WBC (test code = 0896459809) See_Comment [Automated [employer] ssage] The system which generated this result transmitted reference range: 0.0 - 10.0 /100 WBCs. The reference range was not used to interpret this result as normal/abnormal. NRBC x10^3 (test code = 5389553438) <0.01 See_Comment [Automated [employer] ssage] The system which generated this result transmitted reference range: 10*3/?L. The reference range was not used to interpret this result as normal/abnormal. GRAN MAT (NEUT) % (test code = 770-8) 65.2 % IMM GRAN % (test code = 5189263907) 0.20 % LYMPH % (test code = 736-9) 24.7 % MONO % (test code = 5905-5) 6.4 % EOS % (test code = 713-8) 2.6 % BASO % (test code = 706-2) 0.9 % GRAN MAT x10^3(ANC) (test code = 9694444986) 3.80 10*3/uL 1.88-7.09 IMM GRAN x10^3 (test code = 6267587271) <0.03 0.00-0.06 LYMPH x10^3 (test code = 731-0) 1.44 10*3/uL 1.32-3.29 MONO x10^3 (test code = 742-7) 0.37 10*3/uL 0.33-0.92 EOS x10^3 (test code = 711-2) 0.15 10*3/uL 0.03-0.39 BASO x10^3 (test code = 704-7) 0.05 10*3/uL 0.01-0.07 [facility] WITH [id number] 20:27:26* Test Item Value Reference Range Interpretation Comme nts WBC (test code = 6690-2) See_Comment [Automated [employer] ge] The system which generated this result transmitted reference range: 4.30 - 11.10 10*3/?L. The reference range was not used to interpret this result as normal/abnormal. RBC (test code = 789-8) See_Comment [Automated [employer] ge] The system which generated this result transmitted reference range: 3.93 - 5.25 10*6/?L. The reference range was not used to interpret this result as normal/abnormal. HGB (test code = 718-7) 12.3 g/dL 11.6-15.0 HCT (test code = 4544-3) 38.2 % 35.7-45.2 MCV (test code = 787-2) 89.0 fL 80.6-95.5 MCH (test code = 785-6) 28.7 pg 25.9-32.8 MCHC (test code = 786-4) 32.2 g/dL 31.6-35.1 RDW-SD (test code = 26552-0) 46.2 fL 39.0-49.9 RDW-CV (test code = 788-0) 14.2 % 12.0-15.5 PLT (test code = 777-3) See_Comment [Automated messa ge] The system which generated this result transmitted reference range: 166 - 358 10*3/?L. The reference range was not used to interpret this result as normal/abnormal. MPV (test code = 32935-2) 11.3 fL 9.5-12.9 NRBC/100 WBC (test code = 9388956680) See_Comment [Automated me ssage] The system which generated this result transmitted reference range: 0.0 - 10.0 /100 WBCs. The reference range was not used to interpret this result as normal/abnormal. NRBC x10^3 (test code = 0157755043) <0.01 See_Comment [Automated me ssage] The system which generated this result transmitted reference range: 10*3/?L. The reference range was not used to interpret this result as normal/abnormal. GRAN MAT (NEUT) % (test code = 770-8) 65.2 % IMM GRAN % (test code = 2981918424) 0.20 % LYMPH % (test code = 736-9) 24.7 % MONO % (test code = 5905-5) 6.4 % EOS % (test code = 713-8) 2.6 % BASO % (test code = 706-2) 0.9 % GRAN MAT x10^3(ANC) (test code = 9036026137) 3.80 10*3/uL 1.88-7.09 IMM GRAN x10^3 (test code = 3061801187) <0.03 0.00-0.06 LYMPH x10^3 (test code = 731-0) 1.44 10*3/uL 1.32-3.29 MONO x10^3 (test code = 742-7) 0.37 10*3/uL 0.33-0.92 EOS x10^3 (test code = 711-2) 0.15 10*3/uL 0.03-0.39 BASO x10^3 (test code = 704-7) 0.05 10*3/uL 0.01-0.07 [facility]wayPO[facility] [id number] 20:10:00* Test Item Value Reference Range Interpretation Comme nts POCT PREG (test code = 1605) negative On board controls acceptable with C Line (test code = 3574) present Lab Interpretation (test cod e = 57553-0) Normal [facility] OQJY2558-25-85 20:10:00* Test Item Value Reference Range Interpretation Comme nts POCT PREG (test code = 1605) negative On board controls acceptable with C Line (test code = 3574) present Lab Interpretation (test cod e = 19074-0) Normal [facility] YMMK0984-32-35 14:12:00* Test Item Value Reference Range Interpretation Comme nts POCT PREG (test code = 1605) Negative On board controls acceptable with C Line (test code = 3574) Yes POCT PREG LOT # (test code = 3575) POCT PREG TEST DATE (test code = 3576) ISAMAR (test code = ISAMAR) accurate developme nt and interpretation of all internal controls [facility] OXPJ4933-02-83 14:12:00* Test Item Value Reference Range Interpretation Comme nts POCT PREG (test code = 1605) Negative On board controls acceptable with C Line (test code = 3574) Yes POCT PREG LOT # (test code = 3575) POCT PREG TEST DATE (test code = 3576) ISAMAR (test code = ISAMAR) accurate developme nt and interpretation of all internal controls [facility] [id number] 19:07:00* Test Item Value Reference Range Interpretation Comme nts POCT PREG (test code = 1605) Negative On board controls acceptable with C Line (test code = 3574) Yes POCT PREG LOT # (test code = 3575) POCT PREG TEST DATE ( test code = 3576) Lab Interpretation (test cod e = 90435-7) Normal [facility] XPUG6144-15-65 19:07:00* Test Item Value Reference Range Interpretation Comme nts POCT PREG (test code = 1605) Negative On board controls acceptable with C Line (test code = 3574) Yes POCT PREG LOT # (test code = 3575) POCT PREG TEST DATE ( test code = 3576) Lab Interpretation (test cod e = 98808-4) Normal [facility] [id number] 19:07:00* Test Item Value Reference Range Interpretation Comme nts POCT PREG (test code = 1605) Negative On board controls acceptable with C Line (test code = 3574) Yes POCT PREG LOT # (test code = 3575) POCT PREG TEST DATE ( test code = 3576) Lab Interpretation (test cod e = 91435-5) [facility] Metabolic Qmsyw1186-56-52 05:20:14* Test Item Value Reference Range Interpretation Comme nts NA (test code = 9145652412) 139 mmol/L 135-145 K (test code = 4182980501) 2.8 mmol/L 3.5-5.0 LL CL (test code = 1965936059) 113 mmol/L 98-108 H CO2 TOTAL (test code = 1129248746) 21 mmol/L 23-31 L AGAP (test code = 7450343825) 2-16 BUN (test code = 6266523025) 10 mg/dL 7-23 GLUCOSE (test code = 8257842701) 68 mg/dL 70-110 L CREATININE (test code = 8308163188) 0.47 mg/dL 0.50-1.04 L TOTAL BILI (test code = 2213773918) 0.3 mg/dL 0.1-1.1 CALCIUM (test code = 8041410252) 6.7 mg/dL 8.6-10.6 L T PROTEIN (test code = 4228258896) 5.1 g/dL 6.3-8.2 L ALBUMIN (test code = 5271130144) 2.8 g/dL 3.5-5.0 L ALK PHOS (test code = 8783654833) 54 U/L 34-122 ALTv (test code = 1742-6) 10 U/L 5-35 AST(SGOT) (test code = 7994288756) 17 U/L 13-40 eGFR (test code = 3206213946) mL/min/1.73m2 ISAMAR (test code = ISAMAR) Association of [...] or abnormalities in imaging tests). Lab Interpretation (test code = 35050-9) Abnormal [facility] with Bozfwvpfbwan4036-94-93 04:44:04* Test Item Value Reference Range Interpretation Comme nts WBC (test code = 6690-2) See_Comment [[employer]] The system which generated this result transmitted reference range: 4.30 - 11.10 10*3/?L. The reference range was not used to interpret this result as normal/abnormal. RBC (test code = 789-8) See_Comment [[employer]] The system which generated this result transmitted reference range: 3.93 - 5.25 10*6/?L. The reference range was not used to interpret this result as normal/abnormal. HGB (test code = 718-7) 12.8 g/dL 11.6-15.0 HCT (test code = 4544-3) 38.8 % 35.7-45.2 MCV (test code = 787-2) 88.4 fL 80.6-95.5 MCH (test code = 785-6) 29.2 pg 25.9-32.8 MCHC (test code = 786-4) 33.0 g/dL 31.6-35.1 RDW-SD (test code = 42137-8) 45.1 fL 39.0-49.9 RDW-CV (test code = 788-0) 13.8 % 12.0-15.5 PLT (test code = 777-3) See_Comment [Automated messa ge] The system which generated this result transmitted reference range: 166 - 358 10*3/?L. The reference range was not used to interpret this result as normal/abnormal. MPV (test code = 01267-2) 12.0 fL 9.5-12.9 NRBC/100 WBC (test code = 7193634772) See_Comment [Automated me ssage] The system which generated this result transmitted reference range: 0.0 - 10.0 /100 WBCs. The reference range was not used to interpret this result as normal/abnormal. NRBC x10^3 (test code = 5419477023) <0.01 See_Comment [Automated me ssage] The system which generated this result transmitted reference range: 10*3/?L. The reference range was not used to interpret this result as normal/abnormal. GRAN MAT (NEUT) % (test code = 770-8) 50.4 % IMM GRAN % (test code = 6349405417) 0.50 % LYMPH % (test code = 736-9) 37.3 % MONO % (test code = 5905-5) 7.2 % EOS % (test code = 713-8) 3.6 % BASO % (test code = 706-2) 1.0 % GRAN MAT x10^3(ANC) (test code = 2727006241) 2.94 10*3/uL 1.88-7.09 IMM GRAN x10^3 (test code = 7716463751) 0.03 10*3/uL 0.00-0.06 LYMPH x10^3 (test code = 731-0) 2.18 10*3/uL 1.32-3.29 MONO x10^3 (test code = 742-7) 0.42 10*3/uL 0.33-0.92 EOS x10^3 (test code = 711-2) 0.21 10*3/uL 0.03-0.39 BASO x10^3 (test code = 704-7) 0.06 10*3/uL 0.01-0.07 [facility]wayUrinalysis2021-05-24 04:29:33* Test Item Value Reference Range Interpretation Comme nts APPEARANCE (test code = 9583872427) Hazy Clear A COLOR (test code = 5366704104) Yellow Yellow PH (test code = 5337665191) 4.8-8.0 SP GRAVITY (test code = 8246299757) 1.003-1.030 GLU U QUAL (test code = 7957053655) Normal Normal BLOOD (test code = 4446798103) Negative Negative KETONES (test code = 6037630015) Negative Negative PROTEIN (test code = 2887-8) 30 mg/dL Negative A UROBILIN (test code = 7744056720) 2.0 mg/dL Normal A BILIRUBIN (test code = 2672750619) Negative Negative NITRITE (test code = 1570446695) Negative Negative LEUK SOULEYMANE (test code = 1806443944) Negative Negative RBC/HPF (test code = 7453001793) <1 See_Comment [Automated messa ge] The system which generated this result transmitted reference range: 0 - 3 HPF. The reference range was not used to interpret this result as normal/abnormal. WBC/HPF (test code = 4506655074) <1 See_Comment [Automated messa ge] The system which generated this result transmitted reference range: 0 - 5 HPF. The reference range was not used to interpret this result as normal/abnormal. BACTERIA (test code = 2986062033) Negative Negative MUCOUS (test code = 0878057434) Moderate Negative LPF A AMORPHOUS (test code = 9869963071) Rare Rare HPF SQ EPITH (test code = 7120509789) HPF Lab Interpretation (test code = 06395-7) [facility]normal [facility]wayLip[facility], Ygjho1263-10-39 04:21:21* Test Item Value Reference Range Interpretation Comme [facility] LIPASE (test code = 2154871944) 69 U/L 0-220 Lab Interpretation (test cod e = 21307-1) Normal [facility]wayPOCT Nsga2035-52-09 03:30:00* Test Item Value Reference Range Interpretation Comme nts POCT PREG (test code = 1605) negative On board controls acceptable with C Line (test code = 3574) present Lab Interpretation (test cod e = 41040-0) Normal [facility]wayCOMP. METABOLIC PANEL (65968)2021-01-19 21:36:57* Test Item Value Reference Range Interpretation Comme nts NA (test code = 2612821188) 139 mmol/L 135-145 K (test code = 3330542625) 4.2 mmol/L 3.5-5.0 CL (test code = 6665585627) 106 mmol/L 98-108 CO2 TOTAL (test code = 1189988391) 24 mmol/L 23-31 AGAP (test code = 3098477466) 2-16 BUN (test code = 9601116717) 20 mg/dL 7-23 GLUCOSE (test code = 8411734308) 89 mg/dL 70-110 CREATININE (test code = 0421176928) 0.73 mg/dL 0.50-1.04 TOTAL BILI (test code = 1356164813) 0.6 mg/dL 0.1-1.1 CALCIUM (test code = 1891895079) 9.0 mg/dL 8.6-10.6 T PROTEIN (test code = 5050847830) 7.5 g/dL 6.3-8.2 ALBUMIN (test code = 4489902036) 4.5 g/dL 3.5-5.0 ALK PHOS (test code = 2170370116) 87 U/L 34-122 ALTv (test code = 1742-6) 24 U/L 5-35 AST(SGOT) (test code = 9884822210) 42 U/L 13-40 H eGFR (test code = 4268812944) mL/min/1.73m2 ISAMAR (test code = ISAMAR) Association of [...] or abnormalities in imaging tests). Lab Interpretation (test code = 09481-0) Abnormal [facility]wayURINALYSIS2021-04-20 21:25:51* Test Item Value Reference Range Interpretation Comme nts APPEARANCE (test code = 0613090087) Hazy Clear A COLOR (test code = 3570687578) Yellow Yellow PH (test code = 2105787202) 4.8-8.0 SP GRAVITY (test code = 7447919855) 1.003-1.030 H GLU U QUAL (test code = 0538897761) Normal Normal BLOOD (test code = 3647551756) Negative Negative KETONES (test code = 3500412723) 5 mg/dL Negative A PROTEIN (test code = 2887-8) 30 mg/dL Negative A UROBILIN (test code = 8430075821) 2.0 mg/dL Normal A BILIRUBIN (test code = 2516816983) Negative Negative NITRITE (test code = 7994124457) Negative Negative LEUK SOULEYMANE (test code = 1903528883) Negative Negative RBC/HPF (test code = 0057194520) See_Comment H [Razz] The system which generated this result transmitted reference range: 0 - 3 HPF. The reference range was not used to interpret this result as normal/abnormal. WBC/HPF (test code = 2376086827) See_Comment [[employer]azz] The system which generated this result transmitted reference range: 0 - 5 HPF. The reference range was not used to interpret this result as normal/abnormal. BACTERIA (test code = 2365025761) Negative Negative MUCOUS (test code = 8962953188) Marked Negative LPF A SQ EPITH (test code = 8260668276) HPF Lab Interpretation (test code = 06565-7) [facility]normal [facility]wayCT ABDOMEN PELVIS W EXKZUHJX4696-49-28 21:15:43CT Abdomen and Pelvis with intravenous contrast. CLINICAL HISTORY: Acute generalized Abdominal pain. DOSE: Up-to-date CT equipment and radiation dose reduction techniques wereemployed. CTDIvol: 12.82mGy. DLP: 649 mGy-cm. TECHNIQUE : Contiguous axial [...] is approximately 10.8 x 4 cm and appearsnormal. Nocalcified gallstones are seen. Biliary ducts and the pancreatic duct appearof normal size. Peritoneum: ?No free air or free fluid. No lymphadenopathy. Pancreas and Adrenals: ?Unremarkable pa ncreas and adrenal glands. Kidneys and Ureters: ?No visible calculi in the renal collecting systems. No hydroureter or hydronephrosis. No enhancing kidney lesions detected. Vessels: Normal. Patent hepatic/portal veins and renal veins. Retroperitoneum: No abnormal fluid or lymphadenopathy. Bowel: Diverticulosis of the sigmoid and descending colon noted without anyacute changes. Normal appendix is visualized. Small bowel gas pattern isunremarkable. Bladder and Reproductive Organs: Enlarged uteruswith at least one 5.5 cmsize fibroid along [...] Supraumbilical midline abdominal wall hernia as well a s umbilical herniawithout any complications.3. Enlarged uterus due to a large 5.5 cm size partiallycalcified uterinefibroid. [facility], Radiant Results Inft User - 01/19/2021 4:16 PM CDTCT Abdomen and Pelvis with intravenous contrast.CLINICAL HISTORY: Acute generalized Abdominal pain.DOSE: Up-to-date CT equipment and radiation dose reduction techniques wereemployed. CTDIvol: 12.82 mGy. DLP: 649 mGy-cm.TECHNIQUE : Contiguous axial imaging from the level of the lung basesthrough the pubic symphysis were performed after the uncomplicatedadministration of Omnipaque contrast material. Coronal and sagit talreconstructions were obtained. Auto mA and/or iterative reconstruction wereused to reduce radiation dose.FINDINGS: Comparison made with 01/22/[address] studies.Lower lungs: Clear. No pleural effusion or pericardial effusion.Liver, Gallbladder and Spleen: Liver measures [...] the renal collecting systems. No hydroureter or hydronephros is. No enhancing kidney lesions detected. Vessels: Normal. [...] be simple cyst.Urinary bladder is collapsed and c ould not be evaluated.Bones: No acute findings.Soft tissues: 4 cm size supraumbilical midline abdominal wall herniacontaining intra-abdominal fat and vessels without any complications. 2.5cm size umbilical hernia noted containing fat.CONCLUSION:1. No acute intra-abdominal or pelvic abnormalities detected.2. Supraumbilical midline abdominal wall hernia as well as umbilical herniawithout any complications.3. Enlarged uterus due to a large 5.5 cm size partially calcified uterinefibroid.[facility] WITH DIFF 2021-01-19 21:09:09* Test Item Value Reference Range Interpretation Comme nts WBC (test code = 6690-2) See_Comment [Automated [employer]] The system which generated this result transmitted reference range: 4.30 - 11.10 10*3/?L. The reference range was not used to interpret this result as normal/abnormal. RBC (test code = 789-8) See_Comment [Automated [employer]] The system which generated this result transmitted reference range: 3.93 - 5.25 10*6/?L. The reference range was not used to interpret this result as normal/abnormal. HGB (test code = 718-7) 13.1 g/dL 11.6-15.0 HCT (test code = 4544-3) 40.4 % 35.7-45.2 MCV (test code = 787-2) 88.4 fL 80.6-95.5 MCH (test code = 785-6) 28.7 pg 25.9-32.8 MCHC (test code = 786-4) 32.4 g/dL 31.6-35.1 RDW-SD (test code = 41921-4) 45.5 fL 39.0-49.9 RDW-CV (test code = 788-0) 14.0 % 12.0-15.5 PLT (test code = 777-3) See_Comment [Automated [employer]] The system which generated this result transmitted reference range: 166 - 358 10*3/?L. The reference range was not used to interpret this result as normal/abnormal. MPV (test code = 68376-0) 11.4 fL 9.5-12.9 NRBC/100 WBC (test code = 3735066147) See_Comment [Automated [employer] ssage] The system which generated this result transmitted reference range: 0.0 - 10.0 /100 WBCs. The reference range was not used to interpret this result as normal/abnormal. NRBC x10^3 (test code = 2788535969) <0.01 See_Comment [Automated me ssage] The system which generated this result transmitted reference range: 10*3/?L. The reference range was not used to interpret this result as normal/abnormal. GRAN MAT (NEUT) % (test code = 770-8) 68.5 % IMM GRAN % (test code = 5157722797) 0.40 % LYMPH % (test code = 736-9) 23.1 % MONO % (test code = 5905-5) 6.1 % EOS % (test code = 713-8) 1.2 % BASO % (test code = 706-2) 0.7 % GRAN MAT x10^3(ANC) (test code = 5620821782) 5.18 10*3/uL 1.88-7.09 IMM GRAN x10^3 (test code = 0847852574) 0.03 10*3/uL 0.00-0.06 LYMPH x10^3 (test code = 731-0) 1.75 10*3/uL 1.32-3.29 MONO x10^3 (test code = 742-7) 0.46 10*3/uL 0.33-0.92 EOS x10^3 (test code = 711-2) 0.09 10*3/uL 0.03-0.39 BASO x10^3 (test code = 704-7) 0.05 10*3/uL 0.01-0.07 [facility]wayPOCT KKYC6963-59-16 20:54:00* Test Item Value Reference Range Interpretation Comme nts POCT PREG (test code = 1605) neg On board controls acceptable with C Line (test code = 3574) yes POCT PREG LOT # (test code = 3575) [id number] POCT PREG TEST DATE ( test code = 3576) 08/31/2022 Lab Interpretation (test cod e = 23265-9) Normal [facility]IN[facility]YSIS2021-02-10 01:31:00* Test Item Value Reference Range Interpretation Comme nts APPEARANCE (test code = 3576037521) Clear Clear COLOR (test code = 2061100178) Yellow Yellow PH (test code = 7979228327) 4.8-8.0 SP GRAVITY (test code = 2873935164) 1.003-1.030 GLU U QUAL (test code = 7834163728) Normal Normal BLOOD (test code = 7247419530) Negative Negative KETONES (test code = 6858538964) 5 mg/dL Negative A PROTEIN (test code = 2887-8) Negative Negative UROBILIN (test code = 5858789427) 2.0 mg/dL Normal A BILIRUBIN (test code = 1326141460) Negative Negative NITRITE (test code = 5653699406) Negative Negative LEUK SOULEYMANE (test code = 3260733736) Negative Negative RBC/HPF (test code = 5089908667) See_Comment [Automated messa ge] The system which generated this result transmitted reference range: 0 - 3 HPF. The reference range was not used to interpret this result as normal/abnormal. WBC/HPF (test code = 5239396128) See_Comment [Automated messa ge] The system which generated this result transmitted reference range: 0 - 5 HPF. The reference range was not used to interpret this result as normal/abnormal. BACTERIA (test code = 9655974206) Negative Negative MUCOUS (test code = 2663802327) Slight Negative LPF A SQ EPITH (test code = 3958555871) <1 HPF Lab Interpretation (test code = 71491-6) [facility]normal [facility] LakewayXR KNEE <3 VW RBJDV8087-57-94 21:49:55 Narrowing on right knee 4mm, no fractureUnSt. [facility] Date/Time Note Provider Source 2023-10-02 22:11:21 uKbnv17+dtAX374th3j4 8RhS2WbGtmjAx rP4bm6oItZR8upSXh53zyYjfJ0AOmlG86 25-10-00T22:11:21 Pt given printed and verbal discharge instructions regarding viral syndrome, diarrhea, acute cough, and nasal congestionPt verbalized understanding of instructions, pt awake alert oriented, resp reg unlabored, skin w/d, color appropriate for race, moves all ext well,pt encouraged to follow up with pcpAdvised to seek medical attention for new/prolonged/worsening of symptomsNo adverse reaction to meds given in ER noted upon dischargePIV d'cd, dressing to site, catheter in tact.Awake, alert oriented, resp reg unlabored, skin w/d, pt leaving amb with steady gait, in no apparent distress 00742-7Gikuvtafq department DotcNM6693-66-16K90:12:42Emerlos [facility]eles [facility] department [id number]. 7.2.489456|[id number] for patient ztrw08735-0JrwaLZRZBWQLRNNZelognr ed C-CDA narrative [id number] A Diaz RN[address] King [id number] 365YLZUCQOFNQTBFCIZGSRCKS4154-47- 01T22:12:421.2.840.441991.1.72.3. 15|1.2.840.581231.1.13.104.2.7.2. [id number] Keli Yeung RN [facility] 2023-10-02 20:32:11 P7QKJQRhWNzRt/JvT0lg v7KiG/ILGehJD RNZzKDVbaxZ7/0k2fxf+Qq/Ci20mZI604 25-10-00T20:32:11 Patient ambulatory to ED c/o cold symptoms that started two days ago - cough, sore throat, runny nose, fatigue. Last medication taken was allergy medication and Tylenol around 1700. 57717-5Bgssbxneg department Triage bkksUT0288-83-88Z27:37:41Emerlos [facility]eles [facility] Triage noteTXT1.2.840.576664.1.13.104.2. 7.2.364923|[id number] for patient bjue02709-9Mlpnhlszu department NoteLNNARRATIVEFormatted C-CDA narrative [id number]-Xofeg Bong VEG[address] Zp[id number] SuzanneJanisEmmy Bong [facility] 2021-11-02 14:47:00 [id number] Kxx/Knj/ZOVmt +[id number]:47:00 [facility])EMERGENCY PROVIDER REPORTREPORT#:[id number] REPORT STATUS: SignedDATE:11/02/21 TIME:1447 PATIENT: SHAJI WEEKS UNIT #: [id number]#: [id number] ROOM/BED:: 85 AGE: 36 SEX: F PCP PHYS: No Primary or Family PhysicianSERVICE AUTHOR: Jose Harris MD * ALL edits or amendments must be made on the electronic/computer document * HPI-Dental/Mouth Prob Free Text HPI NotesFree Text HPI NotesPatient presents to emergency department for dental abscess that ruptured. Patient has been treating a dental abscess with antibiotics prescribed by dentist and has a dental appointment today at 4 PM but came to the emergency department because the abscess ruptured and pus is draining into her mouth. No fevers chills nausea vomiting diarrhea chest pain shortness of breath abdominal pain. Nothing make symptoms better nothing makes symptoms worse. GeneralInitial Greet Date/Time 11/02/21 1434 PresentationChief Complaint Gum swelling Review of Systems ROS StatementsAll systems rev neg except as marked. Basic Review of SystemsBasic ROS EYES: No redness, CV: No chest pain, : No dysuria/frequency, MS: No ext swelling/pain, HEM: No bleeding/bruising, SKIN: No rash, NEURO: No change MS, NEURO: No focal deficit Focused Review of SystemsConstitutionalDenies: Chills, Fatigue, Fever, Malaise. Ears/Nose/ThroatReports: Mouth pain, Toothache. Denies: Ear drainage bilat, Ear ringing bilat, Earache bilat, Hearing loss bilat. RespiratoryDenies: Cough, non-productive, Cough, productive, Shortness of breath. GIDenies: Abdominal pain, Anorexia, Diarrhea, Nausea, Vomiting. Past Medical History - AdultStated Complaint ABSCESS RUPTURED ON GUMSAllergiesCoded Allergies:tramadol (RASH, HIVES 10/14/18) Home MedicationsReported MedicationsNo Known Home Medications Other Social History Local resident Physical Exam Vital SignsVital SignsFirst Documented: Result Date Time Pulse Ox 100 02/ 1433 B/P 182/89 11/02 1433 B/P Mean 120 02/ 1433 O2 Delivery Room air 11/02 1433 Temp 98.1 11/02 1433 Pulse 88 02/ 1433 Resp 17 11/02 1433 Last Documented: Result Date Time Pulse Ox 100 02/ 1433 B/P 182/89 11/02 1433 B/P Mean 120 02/ 1433 O2 Delivery Room air 11/02 1433 Temp 98.1 11/02 1433 Pulse 88 02/ 1433 Resp 17 02 1433 Review of Vital Signs Reviewed Basic Physical ExamBasic PE GEN: Well appearing/NAD, HEAD: Atraumatic/NC, EYES: PERRL, conj clear, RESP: No resp distress, CV: Reg rate rhythm, ABD: Soft/non-tender, EXT: No gross abnormality, SKIN: No rashes, warm/dry, NEURO: alert oriented, NEURO: gross movement NL Focused PEGeneral/Const General/Const Awake, Alert, No acute distress, Well appearing, Well developedMS Head Head Atraumatic, NormocephalicEyes Eyes Atraumatic, EOMI, No nystagmusEars/Nose/Throat Ears/Nose/Throat Atraumatic, Airway patent Text/Dict NotesAbscess with draining pus above tooth #8MS Neck Neck Atraumatic, Supple, No meningismus, Full range of motion, No adenopathy,No swellingResp/Chest Respiratory/Chest Atraumatic, Breath sounds NL, Breath sounds = bilat, No respiratory distress, No rales, No rhonchiCardiovascular Cardiovascular Heart rate NL, Regular rhythm, Cap refill not delayed, Peripheral circulation NLNeurologic Neurologic Oriented X3, Speech NL, No motor deficits, No sensory deficits Patient Discharge Departure Vital Signs/ConditionVital SignsFirst Documented: Result Date Time Pulse Ox 100 02/ 1433 B/P 182/89 02/ 1433 B/P Mean 120 02/ 1433 O2 Delivery Room air 11/02 1433 Temp 98.1 02/ 1433 Pulse 88 02/ 1433 Resp 17 02/ 1433 Last Documented: Result Date Time Pulse Ox 100 02/ 1433 B/P 182/89 02/ 1433 B/P Mean 120 02/ 1433 O2 Delivery Room air 02 1433 Temp 98.1 02/ 1433 Pulse 88 02/ 1433 Resp 17 / 1433 All vital signs available at the time of this entry have been reviewed. Clinical ImpressionClinical ImpressionPrimary Impression: Dental abscess Disposition DecisionOther )( Time 1448 )( Date 11/02/21 GREGORY-screened discharged Yes Discharge/Care Plan(Auto) PrescriptionsCurrent Visit ScriptsNo Known Home Medications at 0723 [facility] #: [id number] OF REPORTEDEmerhoward memorial hospital department [id number]:47:00L.PDOC20 [id number] for patient [id number] 4:12 HCAPM"
[2023-11-15 16:55] LABS: Absolute Lymphocytes (CBC) 1.7 K/uL (0.7-4.9); Hematocrit 38.7 % (36.0-45.0); MPV 9.2 fL (7.6-11.3); Platelets 313 thou/uL (152-406)
[2023-11-15 17:00] LABS: Albumin 4.2 g/dL (3.4-5.0); Bilirubin Total 0.6 mg/dL (0.2-1.0); Potassium 3.3 mEq/L (3.5-5.1); Protein, Total 8.4 g/dL (6.4-8.2)
--- NOTE | 2023-11-15 17:46 | RAD REPORT ---
EXAM DESCRIPTION: US - Transvaginal Study Probe - 11/15/2023 5:29 pm CLINICAL HISTORY: ABD PAIN Pelvic pain. COMPARISON: Transvaginal Study Probe dated 07/26/2023 FINDINGS: There is a large fibroid in the fundus of the uterus measuring 3.9 x 3.5 x 3.0 cm. Several nabothian cysts are present in the cervix. The uterus measures 9.1 x 6.8 x 5.0 cm. The endometrial stripe measures 5 mm, normal. Both ovaries are normal in size, shape and echotexture. The right ovary measures 3.4 x 2.3 x 2.0 cm. The left ovary measures 2.1 x 1.4 x 1.3 cm. No ovarian or parovarian lesions. No adnexal masses. Normal Doppler blood flow was demonstrated to both ovaries. No significant pelvic ascites. IMPRESSION: Large fibroid in the fundal uterus measures 3.9 cm
[2023-11-15 17:52] LABS: Specific Gravity 1.019 (1.005-1.030); Urine Bacteria <20 /HPF (<20); Urine Bilirubin NEGATIVE (Negative); Urine Blood 3+ (OVER) (Negative); Urine Clarity Extremely Turbid (Clear); Urine Color Light-Orange (Yellow); Urine Glucose NEGATIVE (Negative); Urine Mucus 2+ /HPF (None Seen); Urine Protein TRACE (Negative); Urine RBC >50 /HPF (None Seen); Urine Urobilinogen Normal (Normal); Urine pH 6.5 (5.0-7.0)
--- NOTE | 2023-11-15 18:17 | EDPHYS ---
Physician Documentation [facility] Name: Kristina Christensen Age: 38 yrs Sex: Female : 1985 Arrival Date: 11/15/2023 Time: 16:06 Bed 19 Private MD: ED Physician Aniceto Paige HPI: 11/15 18:19 This 38 yrs old Black Female presents to ER via Ambulatory with complaints of Headache, kb Vaginal Bleeding. 18:19 Patient is a 38-year-old female who presents for headache, vaginal bleeding and fatigue kb that started 5 days ago. Reports she normally has 3-day cycles but this 1 has lasted 5 days and is heavier than normal with clots. Reports pain to left lower abdomen/pelvis. 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 - Social history:: Smoking status: Patient denies any tobacco usage or history of. Patient/guardian denies using alcohol. ROS: 18:19 Constitutional: Negative for fever, chills, and weight loss, kb 18:19 Constitutional: Positive for fatigue, 18:19 : Positive for pelvic pain, vaginal bleeding, 18:19 Neuro: Positive for headache, 18:19 All other systems are negative, Exam: 18:19 Constitutional: This is a well developed, well nourished patient who is awake, alert, kb and in no acute distress. Head/Face: Normocephalic, atraumatic. ENT: Moist Mucous membranes Cardiovascular: Regular rate Respiratory: Respirations even and unlabored. No increased work of breathing. Talking in full sentences Skin: Warm, dry with normal turgor. Normal color. MS/ Extremity: Pulses equal, no cyanosis. Neurovascular intact. Full, normal range of motion. Neuro: Awake and alert, GCS 15, oriented to person, place, time, and situation. Moves all extremities. Normal gait. 18:19 Abdomen/GI: Inspection: abdomen appears normal, Bowel sounds: normal, Palpation: soft, in all quadrants, mild abdominal tenderness, in the left lower quadrant, Vital Signs: 16:15 Weight 106.14 kg; Height 5 ft. 4 in. ; Pain 7/10; ld1 16:19 Pulse 91; Resp 18; Temp 99.3(O); Pulse Ox 100% on R/A; ld1 16:20 BP 154 / 94; ld1 17:00 BP 145 / 92; Pulse 75; Resp 18; Pulse Ox 100% on R/A; db 17:30 BP 139 / 89; Pulse 82; Resp 16; Pulse Ox 100% on R/A; db 18:30 BP 140 / 87; Pulse 77; Resp 16; Pulse Ox 100% on R/A; db 16:15 Body Mass Index 40.17 (106.14 kg, 162.56 cm) ld1 16:15 Pain Scale: Adult ld1 MDM: 16:13 Patient medically screened. kb 18:21 Differential diagnosis: uterine fibroids, Abnormal vaginal bleeding, ovarian cyst, kb anemia. Data reviewed: vital signs, nurses notes. Counseling: I had a detailed discussion with the patient and/or guardian regarding the historical points, exam findings, and any diagnostic results supporting the discharge/admit diagnosis, lab results, radiology results, the need for outpatient follow up, an OB/Gyne specialist, to return to the emergency department if symptoms worsen or persist or if there are any questions or concerns that arise at home. 11/15 16:18 Order name: CBC with Diff; Complete Time: 17:00 kb 11/15 16:18 Order name: CMP; Complete Time: 17:01 kb 11/15 16:18 Order name: Test, Urine; Complete Time: 17:57 kb 11/15 16:18 Order name: Urinalysis w/ reflexes; Complete Time: 17:57 kb 11/15 16:18 Order name: US Transvaginal Study (Probe); Complete Time: 17:57 kb 11/15 16:18 Order name: IV Saline Lock; Complete Time: 16:35 kb 11/15 16:18 Order name: Labs collected and sent; Complete Time: 16:35 kb Administered Medications: 16:35 Drug: NS 0.9% IV 1000 ml IV at 1 bolus Per protocol; 1000 mL bolus Route: IV; Rate: 1 db bolus; Site: right antecubital; 18:45 Follow up: Response: No adverse reaction; IV Status: Completed infusion; IV Intake: db 1000ml 17:41 Drug: Acetaminophen PO 1000 mg PO once Route: PO; db 18:45 Follow up: Response: No adverse reaction db Disposition: 18:51 Co-signature as Attending Physician, Aniceto Paige MD I reviewed the patient's care rt provided by the Advanced Practice Provider and agree with the diagnosis and treatment plan. 18:51 Chart complete. rt Disposition Summary: 11/15/23 18:17 Discharge Ordered Notes: Location: Home kb Condition: Stable kb Diagnosis - Abnormal uterine and vaginal bleeding, unspecified kb - Leiomyoma of uterus, unspecified kb Followup: kb - With: Emergency Department - When: As needed - Reason: Worsening of condition Followup: kb - With: Private Physician - When: 2 - 3 days - Reason: Recheck today's complaints, Continuance of care, Re-evaluation by your physician Discharge Instructions: - Discharge Summary Sheet kb - Uterine Fibroids kb - Abnormal Uterine Bleeding, [id number] kb Forms: - Medication Reconciliation Form kb - Thank You Letter kb - Antibiotic Education kb - Prescription Opioid Use kb - Patient Portal Instructions kb - Leadership Thank You Letter kb Signatures: Dispatcher [employer] Destiny Child, BOOKING OFFICER-C BOOKING OFFICER-Carmen Herbert RN RN ld1 Cheryl Crump, RN RN Aniceto Pean MD MD rt
--- NOTE | 2023-11-15 18:17 | ER ---
Nurse's Notes [facility] Name: Kristina Christensen Age: 38 yrs Sex: Female : 1985 Arrival Date: 11/15/2023 Time: 16:06 Bed 19 Private MD: Diagnosis: Abnormal uterine and vaginal bleeding, unspecified;Leiomyoma of uterus, unspecified Presentation: 11/15 16:15 Chief complaint: Patient states: Fatigue, headache, vaginal bleeding X 5 days. ld1 Coronavirus screen: At this time, the client does not indicate any symptoms associated with coronavirus-19. Ebola Screen: No symptoms or risks identified at this time. Initial Sepsis Screen: Does the patient meet any 2 criteria? Yes No. Patient's initial sepsis screen is negative. Does the patient have a suspected source of infection? No. Patient's initial sepsis screen is negative. Risk Assessment: Do you want to hurt yourself or someone else? Patient reports no desire to harm self or others. Onset of symptoms was November 15, 2023. 16:15 Method Of Arrival: Ambulatory ld1 16:15 Acuity: GAURAV 3 ld1 Triage Assessment: 16:18 Headache History: Denies prior headaches. General: Appears in no apparent distress. ld1 comfortable, Behavior is calm, cooperative, appropriate for age. Pain: Complains of pain in left lower quadrant Pain does not radiate. Pain currently is 7 out of 10 on a pain scale. Quality of pain is described as sharp, Pain began 2-3 days ago. Is intermittent. EENT: No signs and/or symptoms were reported regarding the EENT system. Neuro: Level of Consciousness is awake, alert, obeys commands, Oriented to person, place, time, situation. Cardiovascular: Capillary refill < 3 seconds Patient's skin is warm and dry. Respiratory: Airway is patent Respiratory effort is even, unlabored. GI: Abdomen is round non-distended. GI: Reports lower abdominal pain. : Reports vaginal bleeding that is with clots, moderate flow. Derm: No signs and/or symptoms reported regarding the dermatologic system. Musculoskeletal: No signs and/or symptoms reported regarding the musculoskeletal system. 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 - Social history:: Smoking status: Patient denies any tobacco usage or history of. Patient/guardian denies using alcohol. Screenin:35 [facility] ED Fall Risk Assessment (Adult) History of falling in the last 3 months, db including since admission No falls in past 3 months (0 pts) Confusion or Disorientation No (0 pts) Intoxicated or Sedated No (0 pts) Impaired Gait No (0 pts) Mobility Assist Device Used No (0 pt) Altered Elimination No (0 pt) Score/Fall Risk Level 0 - 2 = Low Risk Oriented to surroundings, Maintained a safe environment. Abuse screen: Denies threats or abuse. Denies injuries from another. Nutritional screening: No deficits noted. Tuberculosis screening: No symptoms or risk factors identified. Assessment: 16:35 Reassessment: HERE FOR HEADACHE AND VAGINAL BLEEDING. FEELS LIGHT HEADED AT TIMES. db Reassessment: Patient appears in no apparent distress at this time. Patient and/or family updated on plan of care and expected duration. Pain level reassessed. Patient is alert, oriented x 3, equal unlabored respirations, skin warm/dry/pink. General: Appears in no apparent distress. comfortable, Behavior is calm, cooperative. Pain: Complains of pain in abdomen. Neuro: Level of Consciousness is awake, alert, obeys commands, Oriented to person, place, time, situation. Respiratory: Airway is patent Respiratory effort is even, unlabored, Respiratory pattern is regular, symmetrical. 17:08 Reassessment: Patient appears in no apparent distress at this time. Patient and/or db family updated on plan of care and expected duration. Pain level reassessed. Patient is alert, oriented x 3, equal unlabored respirations, skin warm/dry/pink. PATIENT AMBULATORY TO RESTROOM Patient states feeling better. Patient states symptoms have improved. 18:44 Reassessment: Patient appears in no apparent distress at this time. Patient and/or db family updated on plan of care and expected duration. Pain level reassessed. Patient is alert, oriented x 3, equal unlabored respirations, skin warm/dry/pink. Vital Signs: 16:15 Weight 106.14 kg; Height 5 ft. 4 in. ; Pain 7/10; ld1 16:19 Pulse 91; Resp 18; Temp 99.3(O); Pulse Ox 100% on R/A; ld1 16:20 BP 154 / 94; ld1 17:00 BP 145 / 92; Pulse 75; Resp 18; Pulse Ox 100% on R/A; db 17:30 BP 139 / 89; Pulse 82; Resp 16; Pulse Ox 100% on R/A; db 18:30 BP 140 / 87; Pulse 77; Resp 16; Pulse Ox 100% on R/A; db 16:15 Body Mass Index 40.17 (106.14 kg, 162.56 cm) ld1 16:15 Pain Scale: Adult ld1 ED Course: 16:09 Patient arrived in ED. ae5 16:13 Destiny Acharya FNP-C is PHCP. kb 16:13 Aniceto Paige MD is Attending Physician. kb 16:18 Triage completed. ld1 16:18 Arm band placed on right wrist. ld1 16:26 Carmen Basurto, RN is Primary Nurse. ld1 16:27 Primary Nurse role handed off by Carmen Basurto, RN db 16:27 Cheryl Crump, RN is Primary Nurse. db 16:35 Inserted saline lock: 22 gauge in right antecubital area, using aseptic technique. db ,using aseptic technique. by ras Blood collected. 17:09 Patient has correct armband on for positive identification. Bed in low position. Call db light in reach. Side rails up X 1. Pulse ox on. NIBP on. 17:31 US Transvaginal Study (Probe) In Process Unspecified. EDMS 18:44 Provided Education on: DISCHARGE. db 18:44 No provider procedures requiring assistance completed. IV discontinued, intact, db bleeding controlled, No redness/swelling at site. Administered Medications: 16:35 Drug: NS 0.9% IV 1000 ml IV at 1 bolus Per protocol; 1000 mL bolus Route: IV; Rate: 1 db bolus; Site: right antecubital; 18:45 Follow up: Response: No adverse reaction; IV Status: Completed infusion; IV Intake: db 1000ml 17:41 Drug: Acetaminophen PO 1000 mg PO once Route: PO; db 18:45 Follow up: Response: No adverse reaction db Medication: 16:35 VIS not applicable for this client. db Intake: 18:45 IV: 1000ml; Total: 1000ml. db Outcome: 18:17 Discharge ordered by MD. valle 18:44 Discharged to home ambulatory, with family, db 18:44 Condition: stable 18:44 Discharge instructions given to patient, family, Instructed on discharge instructions, follow up and referral plans. Prescriptions given X 2, 18:45 Patient left the ED. db Signatures: Dispatcher [employer] EDDestiny Williamson FNP-C FNP-Carmen Herbert RN RN ld1 Cheryl Crupm, RN RN db Rebecca Lin ae5
[2023-11-15 19:06] VITALS: TEMP 99.3; O2SAT 100
[2023-11-15 19:27] VITALS: BP 140/87
== END ==
LOC: ER 16:06
DX: D25.9 Leiomyoma of uterus, unspecified (principal)
CPT/HCPCS: 36415; 76830; 80053; 81001; 81025; 85025; J7030

== ENCOUNTER 2024-04-27 22:25 | Inpatient (IN) | payer OTHER ==
--- OUTSIDE RECORDS SUMMARY | 2024-04-27 22:29 | XMS REPORT | Continuity of Care Document ---
Author Name Unknown Address [address] [facility] [address] [place] [address] [facility] thconnect Address [address] [facility] [address] [place] [address] Care Team Providers Care Travel Physical Therapist Name Role Phone TI Foley [facility], [facility] Care Physician Unavailable [email or web address] Attending Clinician UnavailLUKE Galvan Attending Clinician Unavailable Luke Simmons Attending Clinician [phone] KEYSHA VIVEROS Attending Clinician Unavailable KEYSHA VIVEROS Attending Clinician Unavailable Doctor Unassigned, [place] Attending Clinician U Jose Schilling Attending Clinician Unavailable KARLEE GOMEZ Attending Clinician Unavailab Karlee Hoep DO Attending Clinician [phone] Dinh PAC, Nohemi S Attending Clinician [phone] Jordan VEGAS, Mony Key Attending Clinician UnaTASHA Avila Attending Clinician Unavailable KILEY STROUD Attending Clinician Unavailable Tasha De Oliveira MD Attending Clinician [phone] Riri Cerda Attending Clinician [phone] Sam Dodson Attending Clinician [phone] Fredrick Mina DO Attending Clinician [phone] Anton Williamson MD Attending Clinician [phone] MAIA SHRESTHA Attending Clinician Unavailable Fady BANDA, Maia S Attending Clinician [phone] [email or web address]_S Admitting Clinician Unavaila ble KNOW, DOES_NOT Admitting Clinician Unavailable Physician, No Primary or Family Admitting Clinic gamal Unavailable Payers Payer Name Policy Type Policy Number Effective Date Expirati on Date Source [facility] [id number] 2020 00:00:00 MED[place]ID [place] [id number] 2019 00:00:00 MEDICAID SSI PENDING PENDING 2019 00:00:00 [facility] (MEDICAID HMO) [id number] 2016 00:00:00 2023 00:00:00 [employer] [id number] 2023 00:00:00 Problems Condition Name Condition Details Condition Category Status Onset Date Resolution Date Last Treatment Date Treating Clinician Comments Source Presence of 52 mg levonorges trel-relea sing intrauteri ne device (IUD) Presence of 52 mg levonorges trel-relea sing intrauteri ne device (IUD) Disease Active 03-29 00:00: 00 [facility] Prolapse of anterior vaginal wall Prolapse of anterior vaginal wall Disease Active 03-19 00:00: 00 [facility] Posterior vaginal wall prolapse Posterior vaginal wall prolapse Disease Active 03-19 00:00: 00 [facility] acute hospital Constipati on, unspecifie d constipati on type Constipati on, unspecifie d constipati on type Disease Active 18 00:00: 00 [facility] acute [facility] Weakness Weakness Disease Active 06-03 00:00: 00 [facility] acute [facility] Morbid obesity with body mass index of 40.0-49.9 Morbid obesity with body mass index of 40.0-49.9 Disease Active 06-03 00:00: 00 [facility] acute hospital Morbid obesity with body mass index of 40.0-49.9 Morbid obesity with body mass index of 40.0-49.9 Disease Active 06-03 00:00: 00 [facility] acute hospital Cyst of right ovary Cyst of right ovary Disease Active 02-01 00:00: 00 [facility] History of cervical cancer History of cervical cancer Disease Active 02-01 00:00: 00 [facility] acute [facility] Moderate single current episode of major depressive disorder Moderate single current episode of major depressive disorder Disease Active 02-01 00:00: 00 [facility] Normal delivery Normal delivery Disease Active 03-04 00:00: 00 [facility] acute hospital Allergies, Adverse Reactions, Alerts Allergy Name Allergy Type Status Severity Reaction(s) Onset Date Inactive Date Treating Clinician Comments Source tramadol DA Active U 10-14 00:00: 00 [facility] tramadol DA Active U RASH,HIVES 10-14 00:00: 00 [facility] No Known Allergie s DA Active U 2017-10-15 00:00: 00 [facility] Tramadol Propensi ty to adverse reaction s Active Hives 2016-10 0 00:00: 00 [facility] acute hospital TRAMADOL DRUG INGREDI Active Hives 2016-10 0 00:00: 00 [facility] acute [facility] Social History Social Habit Start Date Stop Date Quantity Comments Source History of tobacco use Current smoker [facility] SDOH Alcohol Frequency [facility] History SDOH Alcohol Std Drinks [facility] History SDOH Alcohol Binge [facility] Exposure to SARS-CoV-2 (event) 2021-10-01 00:00:00 2021-10-31 12:20:00 Not sure [facility] History of Social function 2021-10-31 00:00:00 2021-10-31 00:00:00 [facility] Alcohol intake 2021-10-31 00:00:00 2021-10-31 00:00:00 Current drinker of alcohol (finding) [facility] Tobacco use and exposure 2021-01-27 00:00:00 2021-01-27 00:00:00 Smokeless tobacco non-user [facility] Alcohol Comment 2018-01-31 00:00:00 2018-01-31 00:00:00 social [facility] Sex Assigned At 1985 00:00:00 1985 00:00:00 [facility] Smoking Status Start Date Stop Date Source Ex-smoker 2021-01-27 00:00:00 2021-01-27 [facility]00[facility] Medications Ordered Medication Name Filled Medication Name Start Date Stop Date Current Medication? Ordering Clinician Indication Dosage Frequency Signature (SIG) Comments Components Source ibuprofen (IBU) tablet 600 mg 10-03 03:00: 00 10-03 03:08 :00 No 600mg 600 mg, Oral, ONCE, 1 dose, On 10/02/23 at 2100, OSVALDO [facility] acute hospital HYDROcodone -acetaminop hen (NORCO 5) 5-325 mg tablet 1 tablet 10-31 19:45: 00 10-31 18:47 :00 No 1{tbl} 1 tablet, Oral, ONCE, 1 dose, On 10/31/21 at 1345, OSVALDO [facility] acute hospital amoxicillin 875 mg tablet 10-31 00:00: 00 11-11 05:59 :00 No [id number] 875mg Take 1 tablet by mouth 2 (two) times daily for 10 days. [facility] acute hospital iopamidol (ISOVUE 370-500 mL) injection 100 mL 06-19 00:00: 00 06-19 00:00 :00 No [id number] 100mL 100 mL, Intravenou s, ONCE, 1 dose, On Mon06/18/21 at 1900, Routine [facility] acute [facility] midazolam (VERSED) injection 2 mg 06-18 23:00: 00 06-18 21:56 :00 No 2mg 2 mg, IV Push, ONCE, 1 dose, On Mon06/18/21 at 1800, STAT [facility] acute hospital FENTanyl PF (SUBLIMAZE (PF)) injection 50 mcg 06-18 22:45: 00 06-18 21:41 :00 No 50ug 50 mcg, Slow IV Push, ONCE, 1 dose, On Mon06/18/21 at 1745, STAT [facility] acute [facility] ondansetron (ZOFRAN (PF)) injection 4 mg 06-18 22:00: 00 06-18 21:16 :00 No 4mg 4 mg, Slow IV Push, ONCE, 1 dose, On Mon06/18/21 at 1700, OSVALDO [facility] acute hospital FENTanyl PF (SUBLIMAZE (PF)) injection 50 mcg 06-18 22:00: 00 06-18 21:16 :00 No 50ug 50 mcg, Slow IV Push, ONCE, 1 dose, On Mon06/18/21 at 1700, STAT [facility] acute hospital ondansetron (ZOFRAN ODT) 4 mg disintegrat ing tablet 06-18 00:00: 00 Yes [id number] 4mg Take 1 tablet by mouth every 8 (eight) hours as needed for Nausea and Vomiting (N/V). [facility] acetaminoph en-codeine 300-30 mg tablet 06-18 00:00: 00 Yes [id number] 1{tbl} Take 1 tablet by mouth every 4 (four) hours as needed for Pain (scale 7-10). Indication s: acute pain [facility] acute hospital levonorgest reL (MIRENA) IUD 1 Device 03-29 15:45: 00 03-29 14:35 :00 No [id number] 1{devic e} [facility] acute hospital miSOPROStoL 200 mcg tablet 609 00:00: 00 03-29 00:00 :00 No [id number] 200ug Take 1 tablet by mouth SEE-INSTRU CTIONS. [facility] acute hospital ketorolac (TORADOL) injection 30 mg 02-22 07:30: 00 02-22 06:33 :00 No 30mg 30 mg, Slow IV Push, ONCE, 1 dose, 02/22/21 at 0230, OSVALDO
Fa culty member approving Restricted medication : Riri ISAACS [facility] acute hospital KCL (POTASSIUM CHLORIDE) 20 mEq in NaCl 0.9% (NS) 100 mL piggyback 02-22 06:30: 00 02-22 05:53 :00 No 20meq 20 mEq, IV Piggyback, ONCE, 1 dose, 02/22/21 at 0130, 100 mL [facility] acute hospital KCL (KLOR-CON M20) tablet 40 mEq 02-22 06:30: 00 02-22 05:45 :00 No 40meq 40 mEq, Oral, ONCE, 1 dose, 02/22/21 at 0130, Routine [facility] acute [facility] acetaminoph en (TYLENOL) tablet 1,000 mg 02-22 05:00: 00 02-22 04:02 :00 No 1000mg 1,000 mg, Oral, ONCE, 1 dose, 02/22/21 at 0000, OSVALDO [facility] acute hospital ondansetron (ZOFRAN (PF)) injection 4 mg 02-22 05:00: 00 02-22 04:16 :00 No 4mg 4 mg, Slow IV Push, ONCE, 1 dose, 02/22/21 at 0000, OSVALDO [facility] acute hospital NaCl 0.9% (NS) bolus infusion 1,000 mL 02-22 05:00: 00 02-22 10:28 :00 No 1000mL at 999 mL/hr, 1,000 mL, IV Infusion, ONCE, 1 dose, 02/22/21 at 0000, STAT [facility] acute hospital iopamidol (ISOVUE 370-500 mL) injection 120 mL 02-22 04:08: 00 02-22 04:11 :00 No [id number] 120mL 120 mL, Intravenou s, ONCE, 1 dose, 02/21/21 at 2315, Routine [facility] acute hospital polyethylen e glycol 3350 (MIRALAX) 17 gram/dose powder 02-22 00:00: 00 02-27 04:59 :00 No [id number] 17g Take 17 g by mouth daily for 4 days. [facility] acute hospital miSOPROStoL 200 mcg tablet 01-27 00:00: 00 02-24 00:00 :00 No [id number] 200ug Take 1 tablet by mouth SEE-INSTRU CTIONS. Take one tab the night before and one tab the morning of procedure [facility] acute hospital ketorolac (TORADOL) injection 15 mg 01-19 23:15: 00 01-19 22:18 :00 No 15mg 15 mg, Slow IV Push, ONCE, 1 dose, 01/19/21 at 1815, OSVALDO
[facility] member approving Restricted medication : SAM EVANS [facility] acute hospital ondansetron (ZOFRAN (PF)) injection 4 mg 01-19 21:30: 00 01-19 21:29 :00 No 4mg 4 mg, Slow IV Push, ONCE, 1 dose, 01/19/21 at 1630, OSVALDO [facility] acute hospital iohexol (OMNIPAQUE 350 BULK-150 mL) injection 120 mL 01-19 21:15: 00 01-19 21:15 :00 No [id number] 120mL 120 mL, Intravenou s, ONCE, 1 dose, 01/19/21 at 1615, Routine [facility] acute hospital ibuprofen 800 mg tablet 01-19 00:00: 00 Yes [id number] 800mg Take 1 tablet by mouth every 8 (eight) hours as needed for Pain (scale 4-6). Take with food [facility] acute hospital acetaminoph en-codeine 300-30 mg tablet 4-20 00:00: 00 01-27 04:59 :00 No [id number] 1{tbl} Take 1 tablet by mouth every 6 (six) hours as needed for Pain (scale 7-10) for up to 7 days. Indication s: acute pain [facility] acute hospital cephALEXin 500 mg capsule 4-14 00:00: 00 02-24 00:00 :00 No 500mg Take 500 mg by mouth 2 (two) times daily. [facility] acute hospital diclofenac 75 mg EC tablet 12-25 00:00: 00 01-27 00:00 :00 No 75mg Take 1 tablet by mouth 2 (two) times daily with meals. [facility] acute hospital cloNIDine 0.1 mg tablet 04-24 00:00: 00 Yes [id number] .1mg Take 1 tablet by mouth 2 (two) times daily. [facility] acute hospital acetaminoph en-codeine (TYLENOL-CO DEINE #3) 300-30 mg tablet 16 00:00: 00 01-27 00:00 :00 No [id number] 1{tbl} Take 1 tablet by mouth every 4 (four) hours as needed for Pain (scale 7-10). [facility] amoxicillin 500 mg capsule 116 00:00: 01-27 00:00 :00 No [id number] 500mg Take 1 capsule by mouth 3 (three) times daily. [facility] acute hospital cyclobenzap rine 5 mg tablet 06-22 00:00: 00 Yes 5mg Take 1 tablet by mouth 3 (three) times daily. [facility] acute hospital acetaminoph en-codeine (TYLENOL-CO DEINE #3) 300-30 mg tablet 06-22 00:00: 00 01-27 00:00 :00 No 1{tbl} Take 1 tablet by mouth every 6 (six) hours as needed for Pain (scale 4-6) (for cough). [facility] acute [facility] aspirin 81 mg chewable tablet 06-05 00:00: 00 03-10 00:00 :00 No 81mg Take 1 tablet by mouth daily. [facility] acute hospital atorvastati n 20 mg tablet 06-04 00:00: 00 Yes 20mg Take 1 tablet by mouth at bedtime. [facility] acute hospital SERTraline 50 mg tablet 06-04 00:00: 00 Yes [id number] 50mg Take 1 tablet by mouth daily. [facility] acute hospital acetaminoph en-codeine (TYLENOL-CO DEINE #3) 300-30 mg tablet 4-23 00:00: 00 03-10 00:00 :00 No 1{tbl} Take 1 tablet by mouth every 6 (six) hours as needed for Pain (scale 4-6). [facility] acute hospital VIT27&CALCI UM-IRON-FA 60 MG (IRON)-1 MG ORAL TAB 03-05 00:00: 00 Yes Take one tablet by mouth daily [facility] acute hospital SIMETHICONE 80 MG ORAL CHEW 03-05 00:00: 00 Yes 1 Tab Oral PC+HSPRN [facility] acute hospital PHENYTOIN SODIUM EXTENDED 100 MG ORAL CAP 03-05 00:00: 00 Yes 1 Cap Oral BID [facility] acute hospital DOCUSATE CALCIUM 240 MG ORAL CAP 03-05 00:00: 00 01-27 00:00 :00 No Take one capsule by mouth daily as needed for constipati on General acute hospital FERROUS SULFATE 325 MG (65 MG IRON) ORAL TAB 03-05 00:00: 00 01-27 00:00 :00 No Take one tablet by mouth twice daily [facility] acute hospital Immunizations Ordered Immunization Name Filled Immunization Name Date Status Comments Source SARS-COV-2 COVID-19 MODERNA VACCINE 2021-04-19 00:00:00 Completed [facility] SARS-COV-2 COVID-19 MODERNA 12+ YRS VACCINE 2021-04-19 00:00:00 Completed [facility] SARS-COV-2 COVID-19 MODERNA VACCINE 2021-04-19 00:00:00 Completed [facility] SARS-COV-2 COVID-19 MODERNA VACCINE 2021-04-19 00:00:00 Completed [facility] SARS-COV-2 COVID-19 MODERNA VACCINE 2021-04-19 00:00:00 Completed [facility] SARS-COV-2 COVID-19 MODERNA VACCINE 2021-04-19 00:00:00 Completed [facility] SARS-COV-2 COVID-19 MODERNA VACCINE 2021-04-19 00:00:00 Completed [facility] SARS-COV-2 COVID-19 MODERNA VACCINE 2021-03-20 00:00:00 Completed [facility] SARS-COV-2 COVID-19 MODERNA 12+ YRS VACCINE 2021-03-20 00:00:00 Completed [facility] SARS-COV-2 COVID-19 MODERNA VACCINE 2021-03-20 00:00:00 Completed [facility] SARS-COV-2 COVID-19 MODERNA VACCINE 2021-03-20 00:00:00 Completed [facility] SARS-COV-2 COVID-19 MODERNA VACCINE 2021-03-20 00:00:00 Completed [facility] SARS-COV-2 COVID-19 MODERNA VACCINE 2021-03-20 00:00:00 Completed [facility] SARS-COV-2 COVID-19 MODERNA VACCINE 2021-03-20 00:00:00 Completed [facility] H1n1 Vaccine 2009-07-16 00:00:00 Completed [facility] H1n1 Vaccine 2009-07-16 00:00:00 Completed [facility] H1n1 Vaccine 2009-07-16 00:00:00 Completed [facility] H1n1 Vaccine 2009-07-16 00:00:00 Completed [facility] H1n1 Vaccine 2009-07-16 00:00:00 Completed [facility] H1n1 Vaccine 2009-07-16 00:00:00 Completed [facility] H1n1 Vaccine 2009-07-16 00:00:00 Completed [facility] H1n1 Vaccine Unknown Completed [facility] SARS-COV-2 COVID-19 MODERNA 12+ YRS VACCINE Unknown Completed [facility] H1n1 Vaccine Unknown Completed [facility] acute [facility] SARS-COV-2 COVID-19 MODERNA 12+ YRS VACCINE Unknown Completed [facility] SARS-COV-2 COVID-19 MODERNA 12+ YRS VACCINE Unknown Completed [facility] Vital Signs Vital Name Observation Time Observation Value Cornelius osorio Systolic blood pressure 2023-10-03 02:36:00 148 mm[Hg] [facility] Diastolic blood pressure 2023-10-03 02:36:00 99 mm[Hg] [facility] Heart rate 2023-10-03 02:36:00 86 /min [facility] Body temperature 2023-10-03 02:36:00 37.11 Cindi [facility] Respiratory rate 2023-10-03 02:36:00 16 /min [facility] Body height 2023-10-03 02:36:00 165.1 cm [facility] Body weight 2023-10-03 02:36:00 104.599 kg [facility] BMI 2023-10-03 02:36:00 38.37 kg/m2 [facility] Oxygen saturation in Arterial blood by Pulse oximetry 2023-10-03 02:36:00 100 /min [facility] Systolic blood pressure 2021-10-31 18:32:00 151 mm[Hg] [facility] Diastolic blood pressure 2021-10-31 18:32:00 109 mm[Hg] [facility] Heart rate 2021-10-31 18:32:00 92 /min [facility] Body temperature 2021-10-31 18:32:00 36.89 Cindi [facility] Respiratory rate 2021-10-31 18:32:00 16 /min [facility] Body height 2021-10-31 18:32:00 162.6 cm [facility] Body weight 2021-10-31 18:32:00 99.791 kg [facility] BMI 2021-10-31 18:32:00 37.76 kg/m2 [facility] Oxygen saturation in Arterial blood by Pulse oximetry 2021-10-31 18:32:00 100 /min [facility] Systolic blood pressure 2021-06-19 00:30:00 135 mm[Hg] [facility] Diastolic blood pressure 2021-06-19 00:30:00 95 mm[Hg] [facility] Heart rate 2021-06-19 00:30:00 73 /min [facility] Respiratory rate 2021-06-19 00:30:00 16 /min [facility] Oxygen saturation in Arterial blood by Pulse oximetry 2021-06-19 00:30:00 100 /min [facility] Body temperature 2021-06-19 00:00:00 37.17 Cindi [facility] Body height 2021-06-18 19:35:00 162.6 cm [facility] Body weight 2021-06-18 19:35:00 106.142 kg [facility] BMI 2021-06-18 19:35:00 40.17 kg/m2 [facility] Systolic blood pressure 2021-04-05 13:45:00 123 mm[Hg] [facility] Diastolic blood pressure 2021-04-05 13:45:00 86 mm[Hg] [facility] Heart rate 2021-04-05 13:45:00 78 /min [facility] Body temperature 2021-04-05 13:45:00 36.72 Cindi [facility] Respiratory rate 2021-04-05 13:45:00 18 /min [facility] Body height 2021-04-05 13:45:00 162.6 cm [facility] Body weight 2021-04-05 13:45:00 106.142 kg [facility] BMI 2021-04-05 13:45:00 40.17 kg/m2 [facility] Systolic blood pressure 2021-03-29 14:19:00 134 mm[Hg] [facility] Diastolic blood pressure 2021-03-29 14:19:00 89 mm[Hg] [facility] Heart rate 2021-03-29 14:19:00 88 /min [facility] Body temperature 2021-03-29 14:19:00 36.89 Cindi [facility] Respiratory rate 2021-03-29 14:19:00 18 /min [facility] Body height 2021-03-29 14:19:00 162.6 cm [facility] 2021-03-29 14:19:[address] [facility] BMI 2021-03-29 14:19:00 40.89 kg/m2 [facility] Systolic blood pressure 2021-03-10 19:16:00 134 mm[Hg] [facility] Diastolic blood pressure 2021-03-10 19:16:00 85 mm[Hg] [facility] Heart rate 2021-03-10 19:16:00 83 /min [facility] Body temperature 2021-03-10 19:16:00 36.94 Cindi [facility] Respiratory rate 2021-03-10 19:16:00 18 /min [facility] Body height 2021-03-10 19:16:[address] [facility] Body weight 2021-03-10 19:16:[address] [facility] BMI 2021-03-10 19:16:00 40.54 kg/m2 [facility] Systolic blood pressure 2021-02-24 19:05:00 139 mm[Hg] [facility] Diastolic blood pressure 2021-02-24 19:05:00 94 mm[Hg] [facility] Heart rate 2021-02-24 19:05:00 81 /min [facility] Body temperature 2021-02-24 19:04:00 36.78 Cindi [facility] Respiratory rate 2021-02-24 19:04:00 18 /min [facility] Body height 2021-02-24 19:04:[address] [facility] Body weight 2021-02-24 19:04:[address] [facility] BMI 2021-02-24 19:04:00 40.51 kg/m2 [facility] Systolic blood pressure 2021-02-22 10:00:00 138 mm[Hg] [facility] Diastolic blood pressure 2021-02-22 10:00:00 100 mm[Hg] [facility] Heart rate 2021-02-22 10:00:00 71 /min [facility] Respiratory rate 2021-02-22 10:00:00 13 /min [facility] Oxygen saturation in Arterial blood by Pulse oximetry 2021-02-22 10:00:00 98 /min [facility] Body temperature 2021-02-22 04:21:04 37.28 Cindi [facility] Body height 2021-02-22 02:24:[address] [facility] Body weight 2021-02-22 02:24:00 104.327 kg [facility] BMI 2021-02-22 02:24:00 39.48 kg/m2 [facility] Systolic blood pressure 2021-01-27 20:31:00 145 mm[Hg] [facility] Diastolic blood pressure 2021-01-27 20:31:00 91 mm[Hg] [facility] Heart rate 2021-01-27 20:31:00 84 /min [facility] Body temperature 2021-01-27 20:25:00 36.83 Cindi [facility] Respiratory rate 2021-01-27 20:25:00 18 /min [facility] Body height 2021-01-27 20:25:00 162.6 cm [facility] Body weight 2021-01-27 20:25:00 108.41 kg [facility] BMI 2021-01-27 20:25:00 41.02 kg/m2 [facility] Systolic blood pressure 2021-01-19 22:16:47 128 mm[Hg] [facility] Diastolic blood pressure 2021-01-19 22:16:47 89 mm[Hg] [facility] Heart rate 2021-01-19 22:16:47 71 /min [facility] Body temperature 2021-01-19 22:16:47 37.72 Cindi [facility] Respiratory rate 2021-01-19 22:16:47 18 /min [facility] Oxygen saturation in Arterial blood by Pulse oximetry 2021-01-19 22:16:47 100 /min [facility] Body weight 2021-01-19 18:09:00 106.142 kg [facility] BMI 2021-01-19 18:09:00 40.17 kg/m2 [facility] Systolic blood pressure 2020-11-11 01:09:43 147 mm[Hg] [facility] Diastolic blood pressure 2020-11-11 01:09:43 96 mm[Hg] [facility] Heart rate 2020-11-11 01:09:43 86 /min [facility] Body temperature 2020-11-11 01:09:43 37.28 Cindi [facility] Respiratory rate 2020-11-11 01:09:43 18 /min [facility] Oxygen saturation in Arterial blood by Pulse oximetry 2020-11-11 01:09:43 100 /min [facility] Body weight 2020-11-11 00:06:00 106.142 kg [facility] BMI 2020-11-11 00:06:00 40.17 kg/m2 [facility] Systolic blood pressure 2020-11-11 01:09:43 147 mm[Hg] [facility] Diastolic blood pressure 2020-11-11 01:09:43 96 mm[Hg] [facility] Heart rate 2020-11-11 01:09:43 86 /[facility] Body temperature 2020-11-11 01:09:43 37.28 Cindi [facility] Respiratory rate 2020-11-11 01:09:43 18 /min [facility] Oxygen saturation in Arterial blood by Pulse oximetry 2020-11-11 01:09:43 100 /min [facility] Body weight 2020-11-11 00:06:00 106.142 kg [facility] BMI 2020-11-11 00:06:00 40.17 kg/m2 [facility] Systolic blood pressure 2019-12-16 21:22:00 132 mm[Hg] [facility] Diastolic blood pressure 2019-12-16 21:22:00 87 mm[Hg] [facility] Heart rate 2019-12-16 21:22:00 83 /min [facility] Body height 2019-12-16 21:22:00 162.6 cm [facility] Body weight 2019-12-16 21:22:00 106.142 kg [facility] BMI 2019-12-16 21:22:00 40.17 kg/m2 [facility] Systolic blood pressure 2019-12-16 21:22:00 132 mm[Hg] [place] [facility] Diastolic blood pressure 2019-12-16 21:22:00 87 mm[Hg] [facility] Heart rate 2019-12-16 21:22:00 83 /min [facility] Body height 2019-12-16 21:22:00 162.6 cm [facility] Body weight 2019-12-16 21:22:00 106.142 kg [facility] BMI 2019-12-16 21:22:00 40.17 kg/m2 [facility] [facility] Procedures Procedure Date / Time Performed Performing Clinician Source ASSIGNMENT OF BENEFITS 2023-10-03 03:40:11 Docto r Unassigned, [place] [facility] RAPID STREP SCREEN FOR GROUP A 2023-10-03 02:55:00 Luke Maurer [facility] RAPID INFLUENZA A/B 2023-10-03 02:55:00 Brice Maurer [facility] COVID-19 (ID NOW RAPID TESTING) 2023-10-03 02:55:00 Luke Maurer [facility] CONSENT/REFUSAL FOR DIAGNOSIS AND TREATMENT 2023-10-03 02:16:20 Doctor Unassigned, [place] [facility] REFERRAL- REQUEST/RESPONSE 2022-12-20 05:01:00 Doctor Unassigned, [place] [facility] NOTICE OF PRIVACY PRACTICES 2021-10-31 18:23:05 Doctor Unassigned, [place] [facility] CONSENT/REFUSAL FOR DIAGNOSIS AND TREATMENT 2021-10-31 18:20:02 Doctor Unassigned, [place] [facility] CT ABDOMEN PELVIS W CONTRAST 2021-06-18 22:53:18 Nohemi Dinh [facility] ASSIGNMENT OF BENEFITS 2021-06-18 20:28:15 Docto r Unassigned, [place] [facility] XR ABDOMEN 1 VW 2021-06-18 20:23:37 Karlee Gomez [facility] POCT TEST 2021-06-18 20:10:00 Berkley Gomez ra [facility] URINALYSIS 2021-06-18 20:09:00 [facility] 2021-06-18 20:08:00 Karlee Gomez Un [facility] HEPATIC FUNCTION PANEL (31749) (ALB,T.PRO,BILI T,BU/BC,ALT,AST,ALK PHOS) 2021-06-18 20:08:00 Karlee Gomez [facility] BASIC METABOLIC PANEL (NA, K, CL, CO2, GLUCOSE, BUN, CREATININE, CA) 2021-06-18 20:08:00 Karlee Gomez [facility] CBC WITH DIFF 2021-06-18 20:08:00 Karlee Gomez U [facility] CONSENT/REFUSAL FOR DIAGNOSIS AND TREATMENT 2021-06-18 19:15:28 Doctor Unassigned, [place] [facility] POCT TEST 2021-03-29 14:12:00 Tasha De Oliveira [facility] ULTRASOUND 2021-03-29 05:01:00 Doc tor Unassigned, [place] [facility] POCT TEST 2021-02-24 00:00:00 Tasha De Oliveira [facility] COMP. METABOLIC PANEL ([id number]) 2021-02-22 04:38:00 Fredo Hogue [facility] CT ABDOMEN PELVIS W CONTRAST 2021-02-22 04:14:23 Riri Isaacs [facility] LIPASE 2021-02-22 03:30:00 Fredo Hogue [facility] CBC WITH DIFF 2021-02-22 03:30:00 Fredo Hogue Uni [facility] URINALYSIS 2021-02-22 03:30:00 Fredo Hogue S [facility] POCT TEST 2021-02-22 03:30:00 Fredo Hogue [facility] CONSENT/REFUSAL FOR DIAGNOSIS AND TREATMENT 2021-02-22 02:09:58 Doctor Unassigned, [place] [facility] ASSIGNMENT OF BENEFITS 2021-01-27 20:14:09 Docto r Unassigned, [place] [facility] REFERRAL- REQUEST/RESPONSE 2021-01-22 05:01:00 Doctor Unassigned, [place] [facility] CT ABDOMEN PELVIS W CONTRAST 2021-01-19 21:04:54 Sam Evans [facility] POCT TEST 2021-01-19 20:54:00 Sam Evans [facility] URINALYSIS 2021-01-19 20:38:00 Sam Evans [facility] COMP. METABOLIC PANEL (46108) 2021-01-19 20:36:00 Sam Evans [facility] CBC WITH DIFF 2021-01-19 20:36:00 Sam Evans [facility] NOTICE OF PRIVACY PRACTICES 2021-01-19 18:00:58 Doctor Unassigned, [place] [facility] CONSENT/REFUSAL FOR DIAGNOSIS AND TREATMENT 2021-01-19 17:56:54 Doctor Unassigned, [place] [facility] URINALYSIS 2020-11-11 00:46:00 Nohemi Dinh [facility] NOTICE OF PRIVACY PRACTICES 2020-11-11 00:01:32 Doctor Unassigned, [place] [facility] CONSENT/REFUSAL FOR DIAGNOSIS AND TREATMENT 2020-11-10 23:59:08 Doctor Unassigned, [place] [facility] 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 2020-02-20 05:01:00 Doc tor Unassigned, [place] [facility] AUTHORIZATION FOR RELEASE OF PHI 2020-02-10 05:01:00 Doctor Unassigned, [place] [facility] INSURANCE 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 2020-01-31 05:01:00 Doc tor Unassigned, [place] [facility] XR KNEE <3 VW RIGHT 2019-12-16 21:34:01 Maia Shrestha [facility] ASSIGNMENT OF BENEFITS 2019-12-16 21:15:03 Docto r Unassigned, [place] [facility] Encounters Start Date/Time End Date/Time Encounter Type Admission Type [facility] Care Department Encounter ID Source 2021-08-02 23:28:18 Emergency [facility] [id number] General acute hospital 2021-08-01 20:45:33 Emergency [facility] [id number] General acute hospital 2021-08-01 14:07:05 Emergency [facility] [id number] General acute hospital 2021-07-31 22:40:16 Emergency [facility] [id number] General acute hospital 2023-10-06 00:00:00 2023-10-06 00:00:00 Outpatient GC_GCBZW_Ka diyala_S PRIV PRIV [id number] [facility] 2023-10-02 20:39:00 2023-10-02 22:12:00 Emergency X LUKE MAURER [facility] ERT [id number] General acute hospital 2023-10-02 20:39:00 2023-10-02 22:12:00 Emergency Luke Maurer [facility] 1.2.840.114 350.1.13.10 4.2.7.2.686 [id number] General acute hospital 2023-09-08 00:00:00 2023-09-08 00:00:00 Outpatient GC_GCBZW_Ka diyala_S PRIV PRIV [id number] [facility] 2023-07-31 00:00:00 2023-07-31 00:00:00 Outpatient GC_GCBZW_Ka diyala_S PRIV PRIV [id number] [facility] 2023-07-27 00:00:00 2023-07-27 00:00:00 Outpatient GC_GCBZW_Ka diyala_S PRIV PRIV [id number] [facility] 2023-01-25 09:30:00 2023-01-25 09:30:00 Outpatient KEYSHA SANZ KEYSHA [facility] [id number] General acute hospital 2023-01-11 10:30:00 2023-01-11 10:30:00 Outpatient KEYSHA SANZ KEYSHA [facility] [id number] General acute hospital 2022-12-26 10:05:34 2022-12-26 10:05:34 Outpatient [facility] [id number] Ti Sorto 2022-12-20 00:00:00 2022-12-20 00:00:00 Orders Only Doctor Unassigned, [place] [facility] 1.840.114 350.1.13.10 4.2.7.2.686 [id number] [id number] General acute hospital 2022-12-19 09:12:54 2022-12-19 09:12:54 Outpatient [facility] [id number] Ti Sorto 2021-11-02 14:32:00 2021-11-02 14:48:00 Emergency EM HarrisJose [facility] SKYLA [id number] [facility] 2021-11-02 14:32:00 2021-11-02 14:48:00 Emergency EM HarrisJose [facility] [id number] [facility] 2021-10-31 12:33:00 2021-10-31 13:01:00 Emergency KARLEE JOINER [facility] ERT [id number] General acute hospital 2021-10-31 12:33:00 2021-10-31 13:01:00 Emergency Karlee Gomez [facility] 1.840.114 350.1.13.10 4.2.7.2.686 [id number] General acute hospital 2021-10-31 00:00:00 2021-10-31 00:00:00 Orders Only Doctor Unassigned, [place] [facility] 1.2840.114 350.1.13.10 4.2.7.2.686 [id number] [id number] General acute hospital 2021-06-18 14:44:00 2021-06-18 19:42:00 Emergency Nohemi Dinh [facility] 1.2.114 350.1.13.10 4.2.7.2.686 [id number] General acute hospital 2021-06-14 00:00:00 2021-06-14 00:00:00 Telephone Mony Ortega [facility] 1.2.114 350.1.13.10 4.2.7.2.686 [id number] General acute hospital 2021-04-28 13:30:00 2021-04-28 13:30:00 Outpatient TASHA MORROW [facility] [id number] General acute hospital 2021-04-15 14:00:00 2021-04-15 14:00:00 Outpatient R KILEY STROUD [facility] [id number] General acute hospital 2021-04-12 08:00:00 2021-04-12 08:00:00 Outpatient R KEYSHA VIVEROS [facility] [id number] General acute hospital 2021-04-05 08:36:11 2021-04-05 09:07:09 Office Visit Tasha De Oliveira [facility] 1..114 350.1.13.10 4.2.7.2.686 [id number] General acute hospital 2021-04-05 08:45:00 2021-04-05 08:45:00 Outpatient R TASHA DE OLIVEIRA [facility] [id number] General acute hospital 2021-04-02 00:00:00 2021-04-02 00:00:00 Telephone Tasha De Oliveira [facility] 1.84.114 350.1.13.10 4.2.7.2.686 [id number] General acute hospital 2021-03-29 08:54:36 2021-03-29 09:35:27 Office Visit Tasha De Oliveira [facility] 1.2.840.114 350.1.13.10 4.2.7.2.686 [id number] General acute hospital 2021-03-29 09:00:00 2021-03-29 09:00:00 [id number] 2021-03-29 00:00:00 2021-03-29 00:00:00 Orders Only Doctor Unassigned, [place] [facility] 1.2.840.114 350.1.13.10 4.2.7.2.686 [id number] [id number] General acute hospital 2021-03-22 00:00:00 2021-03-22 00:00:00 Patient Secure Msg Doctor Unassigned, [place] [facility] 1.2.840.114 350.1.13.10 4.2.7.2.686 [id number] General acute hospital 2021-03-19 11:00:00 2021-03-19 11:00:00 Outpatient R TASHA DE OLIVEIRA [facility] [id number] General acute hospital 2021-03-18 00:00:00 2021-03-18 00:00:00 Telephone Tasha De Oliveira [facility] 1.2.840.114 350.1.13.10 4.2.7.2.686 [id number] General acute hospital 2021-03-10 13:52:09 2021-03-10 14:30:52 Office Visit Tasha De Oliveira [facility] 1.2.840.114 350.1.13.10 4.2.7.2.686 [id number] General acute hospital 2021-03-10 14:15:00 2021-03-10 14:15:00 Outpatient R TASHA DE OLIVEIRA [facility] [id number] General acute hospital 2021-03-02 00:00:00 2021-03-02 00:00:00 Telephone Tasha De Oliveira [facility] 1.2.840.114 350.1.13.10 4.2.7.2.686 [id number] 134 [id number] General acute hospital 2021-02-24 13:22:56 2021-02-24 14:21:21 Office Visit Tasha De Oliveira [facility] 1.2.840.114 350.1.13.10 4.2.7.2.686 [id number] General acute hospital 2021-02-24 13:30:00 2021-02-24 13:30:00 Outpatient R TASHA DE OLIVEIRA [facility] [id number] General acute hospital 2021-02-21 22:04:00 2021-02-22 05:32:00 [facility].2.[facility].114 350.1.13.10 4.2.7.2.686 [id number] General acute hospital 2021-01-27 15:15:37 2021-01-27 16:25:23 Office Visit Tasha De Oliveira [facility] 1.2.840.114 350.1.13.10 4.2.7.2.686 [id number] General acute hospital 2021-01-27 15:00:00 2021-01-27 15:00:00 Outpatient R TASHA DE OLIVEIRA [facility] [id number] General acute hospital 2021-01-27 00:00:00 2021-01-27 00:00:00 Orders Only Doctor Unassigned, [place] [facility] 1.2.840.114 350.1.13.10 4.2.7.2.686 [id number] [id number] General acute hospital 2021-01-22 00:00:00 2021-01-22 00:00:00 Orders Only Doctor Unassigned, [place] [facility] 1.2.840.114 350.1.13.10 4.2.7.2.686 [id number] General acute hospital 2021-01-19 13:10:00 2021-01-19 17:27:00 Emergency Sam Evans [facility] 1.2.840.114 350.1.13.10 4.2.7.2.686 [id number] General acute hospital 2020-12-21 00:00:00 2020-12-21 00:00:00 Patient Outreach Fredrick Mina [facility] 1.2.840.114 350.1.13.10 4.2.7.2.686 [id number] General acute hospital 2020-11-10 18:08:00 2020-11-10 20:09:00 Emergency Nohemi Dinh [facility] 1.2.840.114 350.1.13.10 4.2.7.2.686 [id number] 2020-11-10 18:08:00 2020-11-10 20:09:00 Emergency Nohemi Dinh [facility] 1.2.840.114 350.1.13.10 4.2.7.2.686 [id number] General acute hospital 2020-02-20 00:00:00 2020-02-20 00:00:00 Orders Only Doctor Unassigned, [place] [facility] 1.2.840.114 350.1.13.10 4.2.7.2.686 [id number] 2020-02-20 00:00:00 2020-02-20 00:00:00 Orders Only Doctor Unassigned, [place] [facility] 1.2.840.114 350.1.13.10 4.2.7.2.686 [id number] General acute hospital 2020-02-10 00:00:00 2020-02-10 00:00:00 Orders Only Doctor Unassigned, [place] [facility] 1.2.840.114 350.1.13.10 4.2.7.2.686 [id number] 2020-02-10 00:00:00 2020-02-10 00:00:00 Orders Only Doctor Unassigned, [place] [facility] 1.2.840.114 350.1.13.10 4.2.7.2.686 [id number] General acute hospital 2020-01-31 00:00:00 2020-01-31 00:00:00 Orders Only Doctor Unassigned, [place] [facility] 1.2.840.114 350.1.13.10 4.2.7.2.686 [id number] 2020-01-31 00:00:00 2020-01-31 00:00:00 Orders Only Doctor Unassigned, [place] [facility] 1.2.840.114 350.1.13.10 4.2.7.2.686 [id number] General acute hospital 2020-01-29 00:00:00 2020-01-29 00:00:00 Telephone Anton Williamson [facility] [place] 1.2.840.114 350.1.13.10 4.2.7.2.686 [id number] 2020-01-29 00:00:00 2020-01-29 00:00:00 Telephone Anton Williamson [facility] [place] 1.2.840.114 350.1.13.10 4.2.7.2.686 [id number] General acute hospital 2020-01-28 00:00:00 2020-01-28 00:00:00 Telephone Anton Williamson [facility] [place] 1.2.840.114 350.1.13.10 4.2.7.2.686 [id number] 2020-01-28 00:00:00 2020-01-28 00:00:00 Telephone Anton Williamson [facility] [place] 1.2.840.114 350.1.13.10 4.2.7.2.686 [id number] General acute hospital 2019-12-26 00:00:00 2019-12-26 00:00:00 Telephone Anton Williamson [facility] [place] 1.2.840.114 350.1.13.10 4.2.7.2.686 [id number] 2019-12-26 00:00:00 2019-12-26 00:00:00 Telephone Anton Williamson [facility] [place] 1.2.840.114 350.1.13.10 4.2.7.2.686 [id number] General acute hospital 2019-12-26 00:00:00 2019-12-26 00:00:00 Telephone Anton Williamson [facility] [place] 1.2.840.114 350.1.13.10 4.2.7.2.686 [id number] General acute hospital 2019-12-26 00:00:00 2019-12-26 00:00:00 Telephone Anton Williamson [facility] [place] 1.2.840.114 350.1.13.10 4.2.7.2.686 [id number] 2019-12-16 16:15:48 2019-12-17 10:13:00 Office Visit Anton Williamson [facility] [place] 1.2.840.114 350.1.13.10 4.2.7.2.686 [id number] General acute hospital 2019-12-16 16:15:48 2019-12-17 10:13:00 Office Visit Anton Williamson [facility] douglas Vazquez 1.2.840.114 350.1.13.10 4.2.7.2.686 [id number] 2019-12-16 16:34:01 2019-12-16 23:59:00 Outpatient R FADY MAIA [facility] [id number] General acute hospital 2019-12-16 16:34:00 2019-12-16 23:59:00 Hospital Encounter Maia Shrestha [facility] 1.2.840.114 350.1.13.10 4.2.7.2.686 [id number] General acute hospital 2019-12-16 00:00:00 2019-12-16 00:00:00 Orders Only Doctor Unassigned, [place] [facility] 1.2.840.114 350.1.13.10 4.2.7.2.686 [id number] General acute hospital Results Test Description Test Time Test Comments Results Result Co mments Source CT/NG, NAAT, [id number] 19:38:21* Test Item Value Reference Range Interpretation Comme nts CHLAMYDIA, NAAT, URINE (test code = 71160) NEGATIVE NEGATIVE Testing is perfo rmed with Tanja ROSA 6800/8800 systems usingreal-time polymerase chain reaction (PCR) method. A negative result does not exclude low level infection, specimensampling error, or collection error. GONORRHEA, NAAT, URINE (test code = 64381) NEGATIVE NEGATIVE Testing is perfo rmed with Tanja ROSA 6800/8800 systems usingreal-time polymerase chain reaction (PCR) method. A negative result does not exclude low level infection, specimensampling error, or collection error. HPV HIGH RISK WITH GENOTYPE, [id number] 16:46:52* Test Item Value Reference Range Interpretation Comme nts HPV HIGH RISK INTERP (test code = 16386) NEGATIVE NEGATIVE HPV 16 (test code = 83891) NEGATIVE HPV 18 (test code = 54964) NEGATIVE HPV, HR, OTHER GENOTYPES (test code = 50075) NEGATIVE Testing methodol ogy is real-time PCR [...] level of infection or specimen sampling error. [facility] has important pathology staff changes effective 11/30/2022. New pathology staff will provide uninterrupted, excellent patient care and clinical consultation. See URL: [email or web address] UNLESS OTHERWISE INDICATED, ALL TESTING PERFORMED AT [facility] [address] [place] [address] DISTRICT ENGINEER: DEVIN BURGOS M.D. [place] NUMBER [id number] [place]. [id number] VAGINAL PATHOGENS DNA [id number] 15:21:32* Test Item Value Reference Range Interpretation Comme nts MARIYA SPECIES (test code = 66018) NEGATIVE NEGATIVE G. VAGINALIS (test code = 85242) POSITIVE NEGATIVE A T. VAGINALIS (test code = 65917) NEGATIVE NEGATIVE Note: The [facility] VPIII Microbial Identification Testis a DNA probe test intended for use in the detectionand identification of Mariya species, Gardnerellavaginalis and Trichomonas vaginalis nucleic acid. HIV 1/2 4TH GEN, RFLX [id number] 04:19:46* Test Item Value Reference Range Interpretation Comme nts HIV 1/2 4TH GEN, RFLX CONF ( test code = 3514) NON-REACTIVE NON-REACTIVE [id number] 03:59:02* Test Item Value Reference Range Interpretation Comme nts RPR RESULT (test code = 3501) NON-REACTIVE NON-REACTIVE RPR TITER (test code = 3500) NOT INDIC. TITER NOT INDIC. [facility] has importan t pathology staff changes effective 11/30/2022. New pathology staff will provide uninterrupted, excellent patient care and clinical consultation. See URL: [email or web address]. UNLESS OTHERWISE INDICATED, ALL TESTING PERFORMED AT [facility] [address] [place] [address] DISTRICT ENGINEER: DEVIN BURGOS M.D. CLIA NUMBER [id number] [place]. [id number] HEPATIC FUNCTION PANEL (28904) (ALB,T.PRO,BILI T,BU/BC,ALT,AST,ALK PHOS) 2021-06-18 20:35:07* Test Item Value Reference Range Interpretation Comme nts TOTAL BILI (test code = 8711529416) 0.3 mg/dL 0.1-1.1 BILI UNCON (test code = 4398233604) 0.3 mg/dL 0.1-1.1 BILI CONJ (test code = 5618378472) 0.0 mg/dL 0.0-0.3 T PROTEIN (test code = 3819138368) 7.6 g/dL 6.3-8.2 ALBUMIN (test code = 7103883807) 4.3 g/dL 3.5-5.0 ALK PHOS (test code = 6259961514) 77 U/L 34-122 ALTv (test code = 1742-6) 42 U/L 5-35 H AST(SGOT) (test code = 6033137522) 33 U/L 13-40 Lab Interpretation (test cod e = 43173-4) [facility]216[facility] (ALB,T.PRO,BILI T,BU/BC,ALT,AST,ALK PHOS)2021-06-18 20:35:07* Test Item Value Reference Range Interpretation Comme nts TOTAL BILI (test code = 8197868385) 0.3 mg/dL 0.1-1.1 BILI UNCON (test code = 6300056355) 0.3 mg/dL 0.1-1.1 BILI CONJ (test code = 4114354521) 0.0 mg/dL 0.0-0.3 T PROTEIN (test code = 9385090305) 7.6 g/dL 6.3-8.2 ALBUMIN (test code = 7283922410) 4.3 g/dL 3.5-5.0 ALK PHOS (test code = 3483340220) 77 U/L 34-122 ALTv (test code = 1742-6) 42 U/L 5-35 H AST(SGOT) (test code = 9566710028) 33 U/L 13-40 Lab Interpretation (test cod e = 74588-2) Abnormal [facility] METABOLIC PANEL (NA, K, CL, CO2, GLUCOSE, BUN, CREATININE, CA)2021-06-18 20:34:47* Test Item Value Reference Range Interpretation Comme nts NA (test code = 8135543712) 136 mmol/L 135-145 K (test code = 9373149985) 4.3 mmol/L 3.5-5.0 CL (test code = 2343426527) 105 mmol/L 98-108 CO2 TOTAL (test code = 9431216908) 24 mmol/L 23-31 AGAP (test code = 7289968523) 2-16 BUN (test code = 1230618942) 9 mg/dL 7-23 GLUCOSE (test code = 8871429395) 112 mg/dL 70-110 H CREATININE (test code = 0019732863) 0.80 mg/dL 0.50-1.04 CALCIUM (test code = 8604627435) 8.8 mg/dL 8.6-10.6 eGFR (test code = 0656037253) mL/min/1.73m2 ISAMAR (test code = ISAMAR) Association [...] imaging tests). Lab Interpretation (test code = 01290-6) [facility] 20:34:47* Test Item Value Reference Range Interpretation Comme nts LIPASE (test code = 7173293099) 74 U/L 0-220 Lab Interpretation (test cod e = 88620-2) Normal [facility] (NA, K, CL, CO2, GLUCOSE, BUN, CREATININE, CA)2021-06-18 20:34:47* Test Item Value Reference Range Interpretation Comme nts NA (test code = 6853310456) 136 mmol/L 135-145 K (test code = 0950513557) 4.3 mmol/L 3.5-5.0 CL (test code = 2231877695) 105 mmol/L 98-108 CO2 TOTAL (test code = 0104916112) 24 mmol/L 23-31 AGAP (test code = 7411899830) 2-16 BUN (test code = 9509750683) 9 mg/dL 7-23 GLUCOSE (test code = 1424313371) 112 mg/dL 70-110 H CREATININE (test code = 8785336644) 0.80 mg/dL 0.50-1.04 CALCIUM (test code = 6138776696) 8.8 mg/dL 8.6-10.6 eGFR (test code = 3731968867) mL/min/1.73m2 ISAMAR (test code = ISAMAR) Association [...] imaging tests). Lab Interpretation (test code = 66159-1) [facility] 20:34:47* Test Item Value Reference Range Interpretation Comme nts LIPASE (test code = 8243248416) 74 U/L 0-220 Lab Interpretation (test cod e = 06363-4) Normal [facility] WITH [id number] 20:27:26* Test Item Value Reference Range Interpretation Comme nts WBC (test code = 6690-2) See_Comment [Automated [employer]] The system which generated this result transmitted reference range: 4.30 - 11.10 10*3/?L. The reference range was not used to interpret this result as normal/abnormal. RBC (test code = 789-8) See_Comment [Automated [employer]] The system which generated this result transmitted [...] 32.2 g/dL 31.6-35.1 RDW-SD (test code = 66500-5) 46.2 fL 39.0-49.9 RDW-CV (test code = 788-0) 14.2 % 12.0-15.5 PLT (test code = 777-3) See_Comment [Automated messa ge] The system which generated this result transmitted reference range: 166 - 358 10*3/?L. The reference range was not used to interpret this result as normal/abnormal. MPV (test code = 00339-3) 11.3 fL 9.5-12.9 NRBC/100 WBC (test code = 1286416923) See_Comment [Automated me ssage] The system which generated this result transmitted reference range: 0.0 - 10.0 /100 WBCs. The reference range was not used to interpret this result as normal/abnormal. NRBC x10^3 (test code = 8013550762) <0.01 See_Comment [Automated me ssage] The system which generated this result transmitted reference range: 10*3/?L. The reference range was not used to interpret this result as normal/abnormal. GRAN MAT (NEUT) % (test code = 770-8) 65.2 % IMM GRAN % (test code = 6046026656) 0.20 % LYMPH % (test code = 736-9) 24.7 % MONO % (test code = 5905-5) 6.4 % EOS % (test code = 713-8) 2.6 % BASO % (test code = 706-2) 0.9 % GRAN MAT x10^3(ANC) (test code = [id number]) 3.80 10*3/uL 1.88-7.09 IMM GRAN x10^3 (test code = [id number]) <0.03 0.00-0.06 LYMPH x10^3 (test code = 731-0) 1.44 10*3/uL 1.32-3.29 MONO x10^3 (test code = 742-7) 0.37 10*3/uL 0.33-0.92 EOS x10^3 (test code = 711-2) 0.15 10*3/uL 0.03-0.39 BASO x10^3 (test code = 704-7) 0.05 10*3/uL 0.01-0.07 [facility] WITH [id number] 20:27:26* Test Item Value Reference Range Interpretation Comme nts WBC (test code = 6690-2) See_Comment [Automated messa ge] The system which generated this result transmitted reference range: 4.30 - 11.10 10*3/?L. The reference range was not used to interpret this result as normal/abnormal. RBC (test code = 789-8) See_Comment [Automated [employer] ge] The system which generated this result [...] 32.2 g/dL 31.6-35.1 RDW-SD (test code = 37966-9) 46.2 fL 39.0-49.9 RDW-CV (test code = 788-0) 14.2 % 12.0-15.5 PLT (test code = 777-3) See_Comment [Automated messa ge] The system which generated this result transmitted reference range: 166 - 358 10*3/?L. The reference range was not used to interpret this result as normal/abnormal. MPV (test code = 34037-8) 11.3 fL 9.5-12.9 NRBC/100 WBC (test code = 9461474086) See_Comment [Automated Jenn Rykert ssage] The system which generated this result transmitted reference range: 0.0 - 10.0 /100 WBCs. The reference range was not used to interpret this result as normal/abnormal. NRBC x10^3 (test code = 4663366774) <0.01 See_Comment [Automated me ssage] The system which generated this result transmitted reference range: 10*3/?L. The reference range was not used to interpret this result as normal/abnormal. GRAN MAT (NEUT) % (test code = 770-8) 65.2 % IMM GRAN % (test code = 2401142332) 0.20 % LYMPH % (test code = 736-9) 24.7 % MONO % (test code = 5905-5) 6.4 % EOS % (test code = 713-8) 2.6 % BASO % (test code = 706-2) 0.9 % GRAN MAT x10^3(ANC) (test code = 7297938082) 3.80 10*3/uL 1.88-7.09 IMM GRAN x10^3 (test code = 6143964550) <0.03 0.00-0.06 LYMPH x10^3 (test code = 731-0) 1.44 10*3/uL 1.32-3.29 MONO x10^3 (test code = 742-7) 0.37 10*3/uL 0.33-0.92 EOS x10^3 (test code = 711-2) 0.15 10*3/uL 0.03-0.39 BASO x10^3 (test code = 704-7) 0.05 10*3/uL 0.01-0.07 [facility] YACE9653-52-84 20:10:00* Test Item Value Reference Range Interpretation Comme nts POCT PREG (test code = 1605) negative On board controls acceptable with C Line (test code = 3574) present Lab Interpretation (test cod e = 24659-8) Normal [facility] YIPW1407-60-91 20:10:00* Test Item Value Reference Range Interpretation Comme nts POCT PREG (test code = 1605) negative On board controls acceptable with C Line (test code = 3574) present Lab Interpretation (test cod e = 26197-7) Normal [facility] SAIG8519-38-56 14:12:00* Test Item Value Reference Range Interpretation Comme nts POCT PREG (test code = 1605) Negative On board controls acceptable with C Line (test code = 3574) Yes POCT PREG LOT # (test code = 3575) POCT PREG TEST DATE (test code = 3576) ISAMAR (test code = ISAMAR) accurate developme nt and interpretation of all internal controls [facility] MBRN5364-01-92 14:12:00* Test Item Value Reference Range Interpretation Comme nts POCT PREG (test code = 1605) Negative On board controls acceptable with C Line (test code = 3574) Yes POCT PREG LOT # (test code = 3575) POCT PREG TEST DATE (test code = 3576) ISAMAR (test code = ISAMAR) accurate developme nt and interpretation of all internal controls [facility] SLDK4794-84-64 19:07:00* Test Item Value Reference Range Interpretation Comme nts POCT PREG (test code = 1605) Negative On board controls acceptable with C Line (test code = 3574) Yes POCT PREG LOT # (test code = 3575) POCT PREG TEST DATE ( test code = 3576) Lab Interpretation (test cod e = 53879-4) Normal [facility] XALY6417-23-47 19:07:00* Test Item Value Reference Range Interpretation Comme nts POCT PREG (test code = 1605) Negative On board controls acceptable with C Line (test code = 3574) Yes POCT PREG LOT # (test code = 3575) POCT PREG TEST DATE ( test code = 3576) Lab Interpretation (test cod e = 73068-6) Normal [facility] SFRG1211-14-34 19:07:00* Test Item Value Reference Range Interpretation Comme nts POCT PREG (test code = 1605) Negative On board controls acceptable with C Line (test code = 3574) Yes POCT PREG LOT # (test code = 3575) POCT PREG TEST DATE ( test code = 3576) Lab Interpretation (test cod e = 90953-5) [facility] Mtoby7197-30-99 05:20:14* Test Item Value Reference Range Interpretation Comme nts NA (test code = 2994072500) 139 mmol/L 135-145 K (test code = 9523245345) 2.8 mmol/L 3.5-5.0 LL CL (test code = 1437594577) 113 mmol/L 98-108 H CO2 TOTAL (test code = 8717714106) 21 mmol/L 23-31 L AGAP (test code = 9556324867) 2-16 BUN (test code = 8485387111) 10 mg/dL 7-23 GLUCOSE (test code = 3868933396) 68 mg/dL 70-110 L CREATININE (test code = 7951381766) 0.47 mg/dL 0.50-1.04 L TOTAL BILI (test code = 9506412867) 0.3 mg/dL 0.1-1.1 CALCIUM (test code = 6186235013) 6.7 mg/dL 8.6-10.6 L T PROTEIN (test code = 4910172578) 5.1 g/dL 6.3-8.2 L ALBUMIN (test code = 8705976089) 2.8 g/dL 3.5-5.0 L ALK PHOS (test code = 9964035912) 54 U/L 34-122 ALTv (test code = 1742-6) 10 U/L 5-35 AST(SGOT) (test code = 9643719341) 17 U/L 13-40 eGFR (test code = 0609210188) mL/min/1.73m2 ISAMAR (test code = ISAMAR) Association [...] imaging tests). Lab Interpretation (test code = 49493-3) Abnormal [facility] with Hixykgitbctx9215-99-53 04:44:04* Test Item Value Reference Range Interpretation Comme nts WBC (test code = 6690-2) See_Comment [Automated Studio[employer]] The system which generated this result transmitted reference range: 4.30 - 11.10 10*3/?L. The reference range was not used to interpret this result as normal/abnormal. RBC (test code = 789-8) See_Comment [Automated [employer]] The system which generated this result transmitted [...] 33.0 g/dL 31.6-35.1 RDW-SD (test code = 21908-3) 45.1 fL 39.0-49.9 RDW-CV (test code = 788-0) 13.8 % 12.0-15.5 PLT (test code = 777-3) See_Comment [Automated [employer]] The system which generated this result transmitted reference range: 166 - 358 10*3/?L. The reference range was not used to interpret this result as normal/abnormal. MPV (test code = 46211-0) 12.0 fL 9.5-12.9 NRBC/100 WBC (test code = 8811704281) See_Comment [Automated me ssage] The system which generated this result transmitted reference range: 0.0 - 10.0 /100 WBCs. The reference range was not used to interpret this result as normal/abnormal. NRBC x10^3 (test code = 7972655957) <0.01 See_Comment [Automated me ssage] The system which generated this result transmitted reference range: 10*3/?L. The reference range was not used to interpret this result as normal/abnormal. GRAN MAT (NEUT) % (test code = 770-8) 50.4 % IMM GRAN % (test code = 6127369511) 0.50 % LYMPH % (test code = 736-9) 37.3 % MONO % (test code = 5905-5) 7.2 % EOS % (test code = 713-8) 3.6 % BASO % (test code = 706-2) 1.0 % GRAN MAT x10^3(ANC) (test code = 1736467777) 2.94 10*3/uL 1.88-7.09 IMM GRAN x10^3 (test code = 9217007238) 0.03 10*3/uL 0.00-0.06 LYMPH x10^3 (test code = 731-0) 2.18 10*3/uL 1.32-3.29 MONO x10^3 (test code = 742-7) 0.42 10*3/uL 0.33-0.92 EOS x10^3 (test code = 711-2) 0.21 10*3/uL 0.03-0.39 BASO x10^3 (test code = 704-7) 0.06 10*3/uL 0.01-0.07 [facility] 04:29:33* Test Item Value Reference Range Interpretation Comme nts APPEARANCE (test code = 6752713085) Hazy Clear A COLOR (test code = 6540150312) Yellow Yellow PH (test code = 5459344741) 4.8-8.0 SP GRAVITY (test code = 1094585348) 1.003-1.030 GLU U QUAL (test code = 3336701611) Normal Normal BLOOD (test code = 9902127486) Negative Negative KETONES (test code = 3705503150) Negative Negative PROTEIN (test code = 2887-8) 30 mg/dL Negative A UROBILIN (test code = 0626516533) 2.0 mg/dL Normal A BILIRUBIN (test code = 6274349300) Negative Negative NITRITE (test code = 0914967288) Negative Negative LEUK SOULEYMANE (test code = 9051465798) Negative Negative RBC/HPF (test code = 6086785191) <1 See_Comment [Automated messa ge] The system which generated this result transmitted reference range: 0 - 3 HPF. The reference range was not used to interpret this result as normal/abnormal. WBC/HPF (test code = 9322965742) <1 See_Comment [Automated messa ge] The system which generated this result transmitted reference range: 0 - 5 HPF. The reference range was not used to interpret this result as normal/abnormal. BACTERIA (test code = 7369393886) Negative Negative MUCOUS (test code = 9669830990) Moderate Negative LPF A AMORPHOUS (test code = 5355255081) Rare Rare HPF SQ EPITH (test code = 1755816518) HPF Lab Interpretation (test code = 34851-7) Abnormal [facility] HospitalLipase, Roocl5526-01-39 04:21:21* Test Item Value Reference Range Interpretation Comme nts LIPASE (test code = 4556231947) 69 U/L 0-220 Lab Interpretation (test cod e = 73843-5) Normal [facility] HospitalPOCT Bytd2024-84-97 03:30:00* Test Item Value Reference Range Interpretation Comme nts POCT PREG (test code = 1605) negative On board controls acceptable with C Line (test code = 3574) present Lab Interpretation (test cod e = 11587-0) Normal [facility] HospitalCOMP. METABOLIC PANEL (29639)2021-01-19 21:36:57* Test Item Value Reference Range Interpretation Comme nts NA (test code = 8514865447) 139 mmol/L 135-145 K (test code = 3047370821) 4.2 mmol/L 3.5-5.0 CL (test code = 8439906660) 106 mmol/L 98-108 CO2 TOTAL (test code = 6925302564) 24 mmol/L 23-31 AGAP (test code = 4950491921) 2-16 BUN (test code = 4815106049) 20 mg/dL 7-23 GLUCOSE (test code = 0947868886) 89 mg/dL 70-110 CREATININE (test code = 2884841116) 0.73 mg/dL 0.50-1.04 TOTAL BILI (test code = 0364175714) 0.6 mg/dL 0.1-1.1 CALCIUM (test code = 9859903544) 9.0 mg/dL 8.6-10.6 T PROTEIN (test code = 6582460157) 7.5 g/dL 6.3-8.2 ALBUMIN (test code = 2400331361) 4.5 g/dL 3.5-5.0 ALK PHOS (test code = 9225987488) 87 U/L 34-122 ALTv (test code = 1742-6) 24 U/L 5-35 AST(SGOT) (test code = 1520243942) 42 U/L 13-40 H eGFR (test code = 7048593602) mL/min/1.73m2 ISAMAR (test code = ISAMAR) Association [...] imaging tests). Lab Interpretation (test code = 85351-7) Abnormal [facility]IS2021-[facility] 21:25:51* Test Item Value Reference Range Interpretation Comme nts APPEARANCE (test code = 5431065323) Hazy Clear A COLOR (test code = 7851520378) Yellow Yellow PH (test code = 9058766456) 4.8-8.0 SP GRAVITY (test code = 1867337269) 1.003-1.030 H GLU U QUAL (test code = 5420033522) Normal Normal BLOOD (test code = 4190241321) Negative Negative KETONES (test code = 6891707151) 5 mg/dL Negative A PROTEIN (test code = 2887-8) 30 mg/dL Negative A UROBILIN (test code = 6315683969) 2.0 mg/dL Normal A BILIRUBIN (test code = 6092964249) Negative Negative NITRITE (test code = 1997056842) Negative Negative LEUK SOULEYMANE (test code = 8648488506) Negative Negative RBC/HPF (test code = 3001101036) See_Comment H [Automated StudioSnaps] The system which generated this result transmitted reference range: 0 - 3 HPF. The reference range was not used to interpret this result as normal/abnormal. WBC/HPF (test code = 4637394293) See_Comment [[employer]] The system which generated this result transmitted reference range: 0 - 5 HPF. The reference range was not used to interpret this result as normal/abnormal. BACTERIA (test code = 1833591984) Negative Negative MUCOUS (test code = 1006733463) Marked Negative LPF A SQ EPITH (test code = 7756745503) HPF Lab Interpretation (test code = 87093-3) Abnormal [facility] HospitalCT ABDOMEN PELVIS W LZEJPDQQ0323-94-86 21:15:43CT Abdomen and Pelvis with intravenous contrast. [...] a large 5.5 cm size partially calcified uterinefibroid.[facility] WITH DIFF 2021-01-19 21:09:09* Test Item Value Reference Range Interpretation Comme nts WBC (test code = 6690-2) See_Comment [Automated [employer]] The system which generated this result transmitted reference range: 4.30 - 11.10 10*3/?L. The reference range was not used to interpret this result as normal/abnormal. RBC (test code = 789-8) See_Comment [Automated [employer] ge] The system which generated this result [...] 32.4 g/dL 31.6-35.1 RDW-SD (test code = 91293-9) 45.5 fL 39.0-49.9 RDW-CV (test code = 788-0) 14.0 % 12.0-15.5 PLT (test code = 777-3) See_Comment [Automated [employer]] The system which generated this result transmitted reference range: 166 - 358 10*3/?L. The reference range was not used to interpret this result as normal/abnormal. MPV (test code = 57557-1) 11.4 fL 9.5-12.9 NRBC/100 WBC (test code = 4334626275) See_Comment [Automated Jenn Rykert ssage] The system which generated this result transmitted reference range: 0.0 - 10.0 /100 WBCs. The reference range was not used to interpret this result as normal/abnormal. NRBC x10^3 (test code = 1643004294) <0.01 See_Comment [Automated Jenn Rykert ssage] The system which generated this result transmitted reference range: 10*3/?L. The reference range was not used to interpret this result as normal/abnormal. GRAN MAT (NEUT) % (test code = 770-8) 68.5 % IMM GRAN % (test code = 6682061201) 0.40 % LYMPH % (test code = 736-9) 23.1 % MONO % (test code = 5905-5) 6.1 % EOS % (test code = 713-8) 1.2 % BASO % (test code = 706-2) 0.7 % GRAN MAT x10^3(ANC) (test code = 5046630840) 5.18 10*3/uL 1.88-7.09 IMM GRAN x10^3 (test code = 3614502635) 0.03 10*3/uL 0.00-0.06 LYMPH x10^3 (test code = 731-0) 1.75 10*3/uL 1.32-3.29 MONO x10^3 (test code = 742-7) 0.46 10*3/uL 0.33-0.92 EOS x10^3 (test code = 711-2) 0.09 10*3/uL 0.03-0.39 BASO x10^3 (test code = 704-7) 0.05 10*3/uL 0.01-0.07 [facility] HospitalPOCT DUMA1738-70-59 20:54:00* Test Item Value Reference Range Interpretation Comme nts POCT PREG (test code = 1605) neg On board controls acceptable with C Line (test code = 3574) yes POCT PREG LOT # (test code = 3575) [id number] POCT PREG TEST DATE ( test code = 3576) 08/31/2022 Lab Interpretation (test cod e = 16446-6) Normal [facility]UR[facility]2021-[facility]-10 01:31:00* Test Item Value Reference Range Interpretation Comme nts APPEARANCE (test code = 0355903250) Clear Clear COLOR (test code = 0687040965) Yellow Yellow PH (test code = 1728305422) 4.8-8.0 SP GRAVITY (test code = 3177435706) 1.003-1.030 GLU U QUAL (test code = 0247037600) Normal Normal BLOOD (test code = 4448296643) Negative Negative KETONES (test code = 1584913159) 5 mg/dL Negative A PROTEIN (test code = 2887-8) Negative Negative UROBILIN (test code = 5211696888) 2.0 mg/dL Normal A BILIRUBIN (test code = 4552202269) Negative Negative NITRITE (test code = 8378913093) Negative Negative LEUK SOULEYMANE (test code = 7499830344) Negative Negative RBC/HPF (test code = 9124716211) See_Comment [Automated messa ge] The system which generated this result transmitted reference range: 0 - 3 HPF. The reference range was not used to interpret this result as normal/abnormal. WBC/HPF (test code = 7689154705) See_Comment [Automated messa ge] The system which generated this result transmitted reference range: 0 - 5 HPF. The reference range was not used to interpret this result as normal/abnormal. BACTERIA (test code = 2152258029) Negative Negative MUCOUS (test code = 0440812516) Slight Negative LPF A SQ EPITH (test code = 1429013367) <1 HPF Lab Interpretation (test code = 15749-4) Abnormal [facility] HospitalXR KNEE <3 VW AAZHR1760-76-80 21:49:55 Narrowing on right knee 4mm, no fractureUnMem[facility] Date/Time Note Provider Source 2023-10-02 22:11:21 2163-06-99J41:11:21F ormatting of this note might be different from the original.Pt given printed and verbal discharge instructions regarding [...] with steady gait, in no apparent distress 60135-4Rjbbenpbe department QfhmFW7291-24-98C46:12:42Emergency department NoteTXT1.2.840.230524.1.13.104.2.7 .2.777508|[id number] for patient mjmy40007-7UpbmGGFWQNICQFWVbtwfqbb d C-CDA narrative [id number] A Diaz RNUT[address]G[id number] 85BWRYMEPWCIIELHHVGBUVGC2118-36-22 T22:12:421.2.840.332923.1.72.3.15| 1.2.840.811280.1.13.104.2.7.2.7278 [id number] Keli Yeung RN [facility] 2023-10-02 20:32:11 3152-13-70Z34:32:11F ormatting of this note might be different from the original.Patient ambulatory to ED c/o cold symptoms that started two days ago - cough, sore throat, runny nose, fatigue. Last medication taken was allergy medication and Tylenol around 1700. 09036-3Pdxmmcdfz department Triage prmvXH1390-24-17E13:37:41[facility] Triage noteTXT1.2.840.973736.1.13.104.2.7 .2.040417|[id number] for patient ysel52957-7Evnpcpxtu department NoteLNNARRATIVEFormatted C-CDA narrative lyoz022437859Sjnxrq-Eglcu McInnis RNUT[address] Ac[id number] 03WDKKUHBWEFRUJADCUZILGP8865-47-31 T20:37:411.2.840.239716.1.72.3.15| 1.2.840.909455.1.13.104.2.7.2.7278 [id number] Villa Woody RN [facility] 2021-11-02 14:47:00 [id number]/qbNrP2 Chuckie/Mak/ZOVmt+ Rwm9mUKG2LrD2QjAFnECwP5OlBmI2z6MVG 2qEfhk9H1249-79-80B11:47:00 [facility])EMERGENCY PROVIDER REPORTREPORT#:[id number] REPORT STATUS: SignedDATE:11/02/21 TIME:144 PATIENT: SHAJI WEEKS UNIT #: [id number]#: [id number] ROOM/BED:: 85 AGE: 36 SEX: F PCP [...] Documented: Result Date Time Pulse Ox 100 11/02 1433 B/P 182/89 11/02 1433 B/P Mean 120 11/02 1433 O2 Delivery Room air 11/02 1433 Temp 98.1 11/02 143 Pulse 88 11/02 1433 Resp 17 11/02 1433 Last Documented: Result Date Time Pulse Ox 100 11/02 1433 B/P 182/89 11/02 1433 B/P Mean 120 / 1433 O2 Delivery Room air 11/02 1433 Temp 98.1 11/02 1433 Pulse 88 02 1433 Resp 17 11/02 1433 Review of Vital Signs Reviewed Basic [...] Documented: Result Date Time Pulse Ox 100 11/02 1433 B/P 182/89 11/02 1433 B/P Mean 120 / 1433 O2 Delivery Room air 11/02 1433 Temp 98.1 11/02 143 Pulse 88 11/02 1433 Resp 17 11/02 1433 Last Documented: Result Date Time Pulse Ox 100 11/02 1433 B/P 182/89 11/02 1433 B/P Mean 120 / 1433 O2 Delivery Room air 11/02 1433 Temp 98.1 11/02 1433 Pulse 88 02/ 1433 Resp 17 11/02 1433 All vital signs available at the time of this entry have been reviewed. Clinical ImpressionClinical ImpressionPrimary Impression: Dental abscess Disposition DecisionOther )( Time 1448 )( Date 11/02/21 GREGORY-screened discharged Yes Discharge/Care Plan(Auto) PrescriptionsCurrent Visit ScriptsNo Known Home Medications at [address] [facility] #: [id number] OF [facility]PORT[facility] mslsmz4602-21-47I99:47:00L.NDUG533 83695-9579SSBmlzniocq for patient tvhbBRTMOIJILHJRYD9702-98-52Q27:24 :12 HCAPM"
[2024-04-27] MEDS ORDERED: MORPHINE 4 MG/ML SYR ONE (22:54)
[2024-04-27] MEDS ORDERED: ONDANSETRON 4 MG/2 ML VIAL ONE (22:54)
[2024-04-27] MEDS ORDERED: FAMOTIDINE 20 MG/2 ML VIAL IV ONE (22:55)
[2024-04-27 23:42] LABS: Absolute Basophils 0.1 K/uL (0-0.5); Absolute Eosinophils 0.2 K/uL (0-0.5); Absolute Lymphocytes (CBC) 1.9 K/uL (0.7-4.9); Absolute Monocytes 0.6 K/uL (0.1-1.3); Absolute Neutrophil 3.1 K/uL (1.8-8.0); Basophils % 0.9 % (0-1.3); Hematocrit 41.2 % (36.0-45.0); Lymphocytes % 32.3 % (15.3-44.8); MCH 29.4 pg (27.0-35.0); MCHC 31.5 g/dL (32.0-36.0); MCV 93.3 fL (80-100); MPV 9.4 fL (7.6-11.3); Monocytes % 9.4 % (3.3-12.3); Neutrophils % 53.4 % (41.7-73.7); Platelets 326 thou/uL (152-406); RBC Red Blood Cell Count 4.42 M/uL (3.86-4.86); Red Cell Distribution Width 14.4 % (12.1-15.2)
[2024-04-27 23:53] LABS: Anion Gap 6.9 mEq/L (5.0-15.0); Bilirubin Total 0.2 mg/dL (0.2-1.0); Globulin 3.9 g/dL (2.3-3.5); Potassium 3.9 mEq/L (3.5-5.1); Protein, Total 7.9 g/dL (6.4-8.2)
--- NOTE | 2024-04-28 02:15 | ER ---
Nurse's Notes [facility] Name: Kristina Christensen Age: 38 yrs Sex: Female : 1985 Arrival Date: 04/27/2024 Time: 22:25 Bed 14 Private MD: Diagnosis: Acute cholecystitis Presentation: 04/27 22:41 Chief complaint: Patient states: Severe epigastric pain. Coronavirus screen: Client vc1 denies travel out of the [place] in the last 14 days. At this time, the client does not indicate any symptoms associated with coronavirus-19. Ebola Screen: Patient negative for fever greater than or equal to 101.5 degrees Fahrenheit, and additional compatible Ebola Virus Disease symptoms Patient denies exposure to infectious person. Patient denies travel to an Ebola-affected area in the 21 days before illness onset. No symptoms or risks identified at this time. Initial Sepsis Screen: Does the patient meet any 2 criteria? No. Patient's initial sepsis screen is negative. Does the patient have a suspected source of infection? No. Patient's initial sepsis screen is negative. Risk Assessment: Do you want to hurt yourself or someone else? Patient reports no desire to harm self or others. Onset of symptoms was April 27, 2024. 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 - Infectious Disease History:: Denies. - Social history:: Smoking status: Reported history of juuling and/or vaping. - Family history:: not pertinent. - Hospitalizations: : No recent hospitalization is reported. Screenin:49 [facility] ED Fall Risk Assessment (Adult) History of falling in the last 3 months, bm8 including since admission No falls in past 3 months (0 pts) Confusion or Disorientation No (0 pts) Intoxicated or Sedated No (0 pts) Impaired Gait No (0 pts) Mobility Assist Device Used No (0 pt) Altered Elimination No (0 pt) Score/Fall Risk Level 0 - 2 = Low Risk Oriented to surroundings, Maintained a safe environment, Educated pt \T\ family on fall prevention, incl call for assistance when getting out of bed, Assessed \T\ reinforced patient's understanding of fall precautions, Hourly rounding (assess needs \T\ fall precautionary measures) done, Used ambulatory aids as needed (educated on \T\ assisted with). Abuse screen: Denies threats or abuse. Nutritional screening: No deficits noted. Tuberculosis screening: No symptoms or risk factors identified. Assessment: 23:49 Reassessment: Patient appears in no apparent distress at this time. Patient and/or bm8 family updated on plan of care and expected duration. Pain level reassessed. Patient is alert, oriented x 3, equal unlabored respirations, skin warm/dry/pink. General: Appears in no apparent distress. uncomfortable, Behavior is calm, cooperative, appropriate for age. Pain: Complains of pain in right upper quadrant and left upper quadrant Pain does not radiate. Pain currently is 6 out of 10 on a pain scale. Quality of pain is described as aching, bloated feeling. Neuro: No deficits noted. Level of Consciousness is awake, alert, obeys commands, Oriented to person, place, time, situation, Appropriate for age. Cardiovascular: No deficits noted. Capillary refill < 3 seconds Patient's skin is warm and dry. Respiratory: Airway is patent Respiratory effort is even, unlabored, Respiratory pattern is regular, symmetrical. GI: Abdomen is flat, non-distended, Bowel sounds present X 4 quads. Abdomen is tender to palpation in right upper quadrant and left upper quadrant Reports upper abdominal pain, nausea. : No signs and/or symptoms were reported regarding the genitourinary system. EENT: No signs and/or symptoms were reported regarding the EENT system. Derm: No signs and/or symptoms reported regarding the dermatologic system. Musculoskeletal: No signs and/or symptoms reported regarding the musculoskeletal system. 04/28 02:44 General: Appears in no apparent distress. comfortable, Behavior is calm, cooperative, bm8 appropriate for age. Pain: Complains of pain in right upper quadrant Pain radiates to right upper quadrant and left upper quadrant Pain currently is 6 out of 10 on a pain scale. Neuro: No deficits noted. Cardiovascular: No deficits noted. Respiratory: No deficits noted. GI: Reports lower abdominal pain, provider informed and new orders recieved. : No deficits noted. EENT: No deficits noted. Derm: No deficits noted. Musculoskeletal: No deficits noted. 04:28 Reassessment: Patient appears in no apparent distress at this time. Patient and/or bm8 family updated on plan of care and expected duration. Pain level reassessed. Patient is alert, oriented x 3, equal unlabored respirations, skin warm/dry/pink. Patient denies pain at this time. Patient states feeling better. Vital Signs: 04/27 22:41 Weight 101.6 kg; Height 5 ft. 4 in. ; Pain 10/10; vc1 04/28 02:44 BP 143 / 96; Pulse 72; Resp 17; Temp 98.4; Pulse Ox 99% ; Pain 6/10; bm8 04:09 BP 130 / 85; Pulse 60; Resp 16; Pulse Ox 100% on R/A; mt4 04/27 22:41 Body Mass Index 38.45 (101.60 kg, 162.56 cm) vc1 04/27 22:41 Pain Scale: Adult vc1 04/28 02:44 Pain Scale: Adult bm8 [place] Coma Score: 04/27 23:49 Eye Response: spontaneous(4). Motor Response: obeys commands(6). Verbal Response: bm8 oriented(5). Total: 15. 04/28 02:44 Eye Response: spontaneous(4). Motor Response: obeys commands(6). Verbal Response: bm8 oriented(5). Total: 15. 04:28 Eye Response: spontaneous(4). Motor Response: obeys commands(6). Verbal Response: bm8 oriented(5). Total: 15. ED Course: 04/27 22:25 Patient arrived in ED. am2 22:28 Jerald Mayo MD is Attending Physician. rn 22:42 Triage completed. vc1 22:42 Arm band placed on right wrist. vc1 23:49 Neo Williamson, RN is Primary Nurse. bm8 23:49 Patient has correct armband on for positive identification. Bed in low position. Call bm8 light in reach. Side rails up X 1. Client placed on continuous cardiac and pulse oximetry monitoring. NIBP monitoring applied. alarm security or surveillance monitor on. Pulse ox on. NIBP on. Door closed. Noise minimized. Warm blanket given. Pillow given. Verbal reassurance given. Head of bed elevated. 23:49 No provider procedures requiring assistance completed. Initial lab(s) drawn, by , bmDiane sent to lab. Inserted saline lock: 20 gauge in right antecubital area, using aseptic technique. Blood collected. Flushed with 10 mL NS Flushed right antecubital with 5 ml normal saline. 04/28 00:04 US Abdomen Limited In Process Unspecified. EDMS 00:37 CT Abd/Pelvis - IV Contrast Only In Process Unspecified. EDMS 02:14 Tino Alves MD is Hospitalizing Provider. rn 02:44 Provided Education on: need for admission. bm8 02:44 Patient admitted, IV remains in place. bm8 Administered Medications: 04/27 23:49 Drug: Famotidine IVP 20 mg IVP once; dilute with 10 mL 0.9% NaCl; give over 2 minutes bm8 Route: IVP; Site: right antecubital; 04/28 00:04 Follow up: Response: No adverse reaction 8 04/27 23:49 Drug: Ondansetron IVP 4 mg IVP once; over 2 minutes Route: IVP; Site: right antecubital;bm8 04/28 00:04 Follow up: Response: No adverse reaction 8 04/27 23:49 Drug: morphine IVP or IV 4 mg IVP once over 4 mins Route: IVP; Infused Over: 4 mins; bm8 Site: right antecubital; 04/28 00:04 Follow up: Response: No adverse reaction bm8 02:46 Drug: Ondansetron IVP 4 mg IVP once; over 2 minutes Route: IVP; Site: right antecubital;bm8 04:30 Follow up: Response: No adverse reaction bm8 02:47 Drug: Piperacillin-Tazobactam IVPB 3.375 grams IVPB once over 60 mins; (mix in NS 100 bm8 mL) Route: IVPB; Infused Over: 60 mins; Site: right antecubital; 04:30 Follow up: Response: No adverse reaction; IV Status: Completed infusion; IV Intake: bm8 100ml 02:47 Drug: morphine IVP or IV 4 mg IVP once over 4 mins Route: IVP; Infused Over: 4 mins; bm8 Site: right antecubital; 04:30 Follow up: Response: No adverse reaction bm8 Medication: 04/27 23:49 VIS not applicable for this client. bm8 Intake: 04/28 04:30 IV: 100ml; Total: 100ml. bm8 Outcome: 02:14 Decision to Hospitalize by Provider. rn 04:28 Admitted to Tele accompanied by nurse, via wheelchair, room 410, with chart, bm8 04:28 Condition: stable 04:28 Instructed on the need for admit, Demonstrated understanding of instructions, follow-up care, 04:49 Patient left the ED. bm8 Signatures: Dispatcher [employer] EDMS Jerald Mayo MD MD rn Moreno, Amanda am2 Calcote, Vanessa RN RN vc1 Neo Williamson, RN RN bm8 Mini Rodriguez RN RN mt4
--- NOTE | 2024-04-28 02:15 | EDPHYS ---
Physician Documentation [facility] Name: Kristina Christensen Age: 38 yrs Sex: Female : 1985 Arrival Date: 04/27/2024 Time: 22:25 Bed 14 Private MD: ED Physician Jerald Mayo HPI: 04/27 22:43 This 38 yrs old Black Female presents to ER via Ambulatory with complaints of Abdominal rn Pain, Back Pain, Nausea. 22:43 The patient presents with abdominal pain. Onset: The symptoms/episode began/occurred 1 rn hour(s) ago. The symptoms do not radiate. Associated signs and symptoms: Pertinent positives: nausea, Pertinent negatives: blood in stools, diarrhea, dysuria, fever, shortness of breath, vaginal discharge, vomiting, vomiting blood. The symptoms are described as achy, crampy. Modifying factors: The symptoms are alleviated by nothing, the symptoms are aggravated by nothing. Severity of pain: At its worst the pain was moderate in the emergency department the pain is unchanged. The patient has not experienced similar symptoms in the past. 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 - Infectious Disease History:: Denies. - Social history:: Smoking status: Reported history of juuling and/or vaping. - Family history:: not pertinent. - Hospitalizations: : No recent hospitalization is reported. ROS: 22:44 Constitutional: Negative for fever, chills, and weight loss, Neck: Negative for injury, rn pain, and swelling, Cardiovascular: Negative for chest pain, palpitations, and edema, Respiratory: Negative for shortness of breath, cough, wheezing, and pleuritic chest pain, Abdomen/GI: Positive for upper abdominal pain with nausea : Negative for injury, bleeding, discharge, and swelling, MS/Extremity: Negative for injury and deformity, Skin: Negative for injury, rash, and discoloration, Neuro: Negative for headache, weakness, numbness, tingling, and seizure, Exam: 22:44 Constitutional: This is a well developed, well nourished patient who is awake, alert, rn appears in pain Head/Face: Normocephalic, atraumatic. Cardiovascular: Regular rate and rhythm. No pulse deficits. Respiratory: No increased work of breathing, no retractions or nasal flaring. Abdomen/GI: Soft, epigastric tenderness, left upper quadrant tenderness, right upper quadrant tenderness. Negative [place]. Back: No spinal tenderness. No costovertebral tenderness. Full range of motion. MS/ Extremity: Pulses equal, no cyanosis. Neurovascular intact. Full, normal range of motion. Equal circumference. Neuro: Awake and alert, GCS 15 Vital Signs: 22:41 Weight 101.6 kg; Height 5 ft. 4 in. ; Pain 10/10; vc1 04/28 02:44 BP 143 / 96; Pulse 72; Resp 17; Temp 98.4; Pulse Ox 99% ; Pain 6/10; bm8 04:09 BP 130 / 85; Pulse 60; Resp 16; Pulse Ox 100% on R/A; mt4 04/27 22:41 Body Mass Index 38.45 (101.60 kg, 162.56 cm) vc1 04/27 22:41 Pain Scale: Adult vc1 04/28 02:44 Pain Scale: Adult bm8 [place] Coma Score: 04/27 23:49 Eye Response: spontaneous(4). Motor Response: obeys commands(6). Verbal Response: bm8 oriented(5). Total: 15. 04/28 02:44 Eye Response: spontaneous(4). Motor Response: obeys commands(6). Verbal Response: bm8 oriented(5). Total: 15. 04:28 Eye Response: spontaneous(4). Motor Response: obeys commands(6). Verbal Response: bm8 oriented(5). Total: 15. MDM: 04/27 22:28 Patient medically screened. rn 04/28 02:13 Differential diagnosis: appendicitis, cholecystitis, Cholelithiasis, gastritis, rn gastroesophageal reflux disease, non-specific abd pain, pancreatitis, Peptic Ulcer Disease. Data reviewed: vital signs, nurses notes, lab test result(s), radiologic studies, CT scan, ultrasound, and as a result, I will admit patient. Consideration of Admission/Observation Patient was admitted/placed on observation. Escalation of care including admission/observation considered. Care significantly affected by the following chronic conditions: Hypertension, crohn's. Counseling: I had a detailed discussion with the patient and/or guardian regarding the historical points, exam findings, and any diagnostic results supporting the discharge/admit diagnosis, lab results, radiology results, the need for further work-up and treatment in the hospital. Response to treatment: the patient's symptoms have markedly improved after treatment, and as a result, I will admit patient. ED course: Patient with possibly acute cholecystitis. Pericholecystic fluid seen on CAT scan but not identified as acute cholecystitis on ultrasound. Patient feeling better. LFTs and lipase normal. WBC normal. Will admit to hospitalist service with surgical consult. Antibiotics ordered and patient NPO.. 04/27 22:42 Order name: CBC with Diff; Complete Time: 00:25 04/27 22:42 Order name: CMP; Complete Time: 00:25 04/27 22:42 Order name: Lipase; Complete Time: 00:25 04/28 03:53 Order name: Urinalysis w/ reflexes [facility] 04/28 03:53 Order name: CBC with Automated Diff [facility] 04/28 03:53 Order name: CBC with Automated Diff [facility] 04/28 03:53 Order name: Comprehensive Metabolic Panel [facility] 04/28 03:54 Order name: Comprehensive Metabolic Panel [facility] 04/27 22:42 Order name: CT Abd/Pelvis - IV Contrast Only 04/27 22:42 Order name: US Abdomen Limited 04/28 03:53 Order name: CONS Physician Consult [facility] 04/27 22:42 Order name: IV Saline Lock; Complete Time: 23:49 rn 04/27 22:42 Order name: Labs collected and sent; Complete Time: 23:49 rn 04/28 02:09 Order name: NPO; Complete Time: 02:19 rn Administered Medications: 04/27 23:49 Drug: Famotidine IVP 20 mg IVP once; dilute with 10 mL 0.9% NaCl; give over 2 minutes bm8 Route: IVP; Site: right antecubital; 04/28 00:04 Follow up: Response: No adverse reaction 8 04/27 23:49 Drug: Ondansetron IVP 4 mg IVP once; over 2 minutes Route: IVP; Site: right antecubital;bm8 04/28 00:04 Follow up: Response: No adverse reaction bm8 04/27 23:49 Drug: morphine IVP or IV 4 mg IVP once over 4 mins Route: IVP; Infused Over: 4 mins; bm8 Site: right antecubital; 04/28 00:04 Follow up: Response: No adverse reaction bm8 02:46 Drug: Ondansetron IVP 4 mg IVP once; over 2 minutes Route: IVP; Site: right antecubital;bm8 04:30 Follow up: Response: No adverse reaction bm8 02:47 Drug: Piperacillin-Tazobactam IVPB 3.375 grams IVPB once over 60 mins; (mix in NS 100 bm8 mL) Route: IVPB; Infused Over: 60 mins; Site: right antecubital; 04:30 Follow up: Response: No adverse reaction; IV Status: Completed infusion; IV Intake: bm8 100ml 02:47 Drug: morphine IVP or IV 4 mg IVP once over 4 mins Route: IVP; Infused Over: 4 mins; bm8 Site: right antecubital; 04:30 Follow up: Response: No adverse reaction bm8 Disposition Summary: 04/28/24 02:14 Hospitalization Ordered Notes: Hospitalization Status: Inpatient Admission rn Provider: Tino Alves rn [facility] rn Condition: Stable rn Problem: new rn Symptoms: have improved rn Bed/Room Type: Standard rn Room Assignment: 410(04/28/24 04:00) Diagnosis - Acute cholecystitis rn Forms: - Medication Reconciliation Form rn - SBAR form rn - Leadership Thank You Letter rn Signatures: Dispatcher [employer] EDMS Kimberly Alvarado RN RN Jerald Botello MD MD rn Calcote, Vanessa, RN RN Kay Shafer [facility] Neo Williamson RN RN bm8 Corrections: (The following items were deleted from the chart) 04/27 22:43 22:42 CBC+H.LAB.BRZ ordered. EDMS EDMS 22:43 22:42 COMPREHENSIVE METABOLIC PANEL+C.LAB.BRZ ordered. EDMS EDMS 22:43 22:42 LIPASE+C.LAB.BRZ ordered. EDMS EDMS 04/28 03:59 02:14 rn kmf 04:00 03:59 [address]
[2024-04-28] MEDS ORDERED: NA CHLORIDE 0.9% 100 ML ONE (02:27)
[2024-04-28] MEDS ORDERED: PIPERACIL/TAZO 3.375 GM VIAL IV ONE (02:27)
[2024-04-28] MEDS ORDERED: MORPHINE 4 MG/ML SYR ONE (02:36)
[2024-04-28] MEDS ORDERED: ONDANSETRON 4 MG/2 ML VIAL ONE (02:36)
[2024-04-28] MEDS ORDERED: ACETAMINOPHEN 325 MG TABLET PO PRN (03:48)
--- NOTE | 2024-04-28 03:54 | P.HP ---
Certification for Inpatient Patient admitted to: Inpatient With expected LOS: >2 Midnights Practitioner: I am a practitioner with admitting privileges, knowledge of patient current condition, hospital course, and medical plan of care. Services: Services provided to patient in accordance with Admission requirements found in Title 42 Section 412.3 of the Code of Federal Regulations Patient History Date of Service: 04/28/24 Reason for admission: Abdominal pain History of Present Illness: 38 yrs old Female with past medical history of anxiety, history of cervical cancer, CVA, Crohn's disease, hypertension, history of seizures, migraine came to ER with abdominal pain back pain and nausea which started today. Pain located in the epigastric and right upper quadrant regions. Dull aching pain without radiation 6 out of 10 in severity. Denies any diarrhea. Feeling nauseous but no vomiting. No fever or chills. Denies any chest pain or shortness of breath. No previous similar episodes. The patient was assessed in the ER and was admitted for further management of possible acute cholecystitis Allergies tramadol Allergy (Unverified 04/28/24 05:36) Hives Tramadol HCl Allergy (Uncoded 04/28/24 05:36) Hives Home Medications: Phenytoin [Dilantin] 50 mg PO TID 04/28/24 - Past Medical/Surgical History Past Medical History: Reviewed- Non-Contributory Past Surgical History: Reviewed- Non-Contributory - Family History Family History: Reviewed- Non-Contributory - Social History Smoking Status: Never smoker Review of Systems 10-point ROS is otherwise unremarkable Physical Examination - Vital Signs Temperature: 98.4 F Blood Pressure: 142/92 Pulse: 78 Respirations: 18 Pulse Ox (%): 94 - Physical Exam General: Alert, In no apparent distress, Oriented x3 HEENT: Atraumatic, Normocephalic Neck: Supple, 2+ carotid pulse no bruit Respiratory: Clear to auscultation bilaterally, Normal air movement Cardiovascular: Regular rate/rhythm, Normal S1 S2 Capillary refill: <2 Seconds Gastrointestinal: Soft and benign, Tenderness Musculoskeletal: No clubbing, No swelling Integumentary: No rashes, No breakdown Neurological: Normal speech, Normal strength at 5/5 x4 extr, Cranial nerves 3-12 intact, Normal reflexes 2+ Lymphatics: No axilla or inguinal lymphadenopathy - Studies Laboratory Data (last 24 hrs) 04/27/24 04/27/24 23:20 23:20 WBC 5.90 Hgb 13.0 Hct 41.2 Plt Count 326 Sodium 139 Potassium 3.9 BUN 14 Creatinine 0.91 Glucose 92 Total Bilirubin 0.2 AST 21 ALT 31 Alkaline Phosphatase 86 Lipase 38 Assessment and Plan - Problems (Diagnosis) (1) Acute cholecystitis Current Visit: Yes Status: Acute Plan: Acute cholecystitis Pain control IV hydration Surgical consult Started on IV antibiotic empirically CT findings started Abdominal ultrasound findings noted as well Awaiting further recommendations from surgery Anxiety, Continue home medications and titrate as needed GI/DVT prophylaxis Advanced directive full code Discharge Plan: Home Plan to discharge in: 48 Hours - Advance Directives Does patient have a Living Will: No Does patient have a Durable POA for Healthcare: No - Code Status/Comfort Care Code Status: Full Code Time Spent Managing Pts Care (In Minutes): 48
[2024-04-28 05:33] VITALS: BMI 38.4
[2024-04-28] MEDS: NA CHLORIDE 0.9% 1,000 ML IV SCH (06:31)
[2024-04-28] MEDS: FAMOTIDINE 20 MG/2 ML VIAL IV SCH (06:31)
[2024-04-28] MEDS: MORPHINE 2 MG/ML SYR IV PRN (06:34)
[2024-04-28 07:00] LABS: Specific Gravity > 1.030 (1.005-1.030); Urine Bacteria None Seen /HPF (<20); Urine Bilirubin NEGATIVE (Negative); Urine Blood Negative (Negative); Urine Clarity Clear (Clear); Urine Color Light-Yellow (Yellow); Urine Culture Reflex Order NOT NEEDED; Urine Glucose NEGATIVE (Negative); Urine Ketones NEGATIVE (Negative); Urine Microscopic Reflex YN ORDER UMIC; Urine Mucus Slight /HPF (None Seen); Urine Nitrite NEGATIVE (Negative); Urine Protein NEGATIVE (Negative); Urine RBC <5 /HPF (None Seen); Urine Urobilinogen Normal (Normal); Urine WBC <5 /HPF (<5); Urine pH 6.5 (5.0-7.0)
[2024-04-28] MEDS: PIPER TAZO 3.375 GM in NA CHLORIDE 0.9% 100 ML IV SCH (07:59)
[2024-04-28] MEDS: HYDROMORPHONE HCL 2 MG/ML inj IV ONE (11:36)
--- NOTE | 2024-04-28 12:39 | CON ---
Date of Consultation: 04/28/2024 Diagnoses: Acute cholecystitis, symptomatic cholelithiasis. History Of Present Illness: This is a case of a 38-year-old patient with history of Crohn disease, C VA, cervical cancer, seizures, who came to us with epigastric right upper quadrant pain radiating to the back, diagnosed with acute cholecystitis and symptomatic cholelithiasis. She does not recall eat ing anything out of the usual. The pain started yesterday afternoon and she was admitted this [place] [facility]. She denies any dysuria, hematuria, hematochezia, or melena. Denies any recent traveling out of [employer]. Denies any family member sick at home. 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 She thought this may be related to it, although she feels different because it is mainly in the right upper quadrant. Allergies: TRAMADOL. Medications: Dilantin. Past Medical History: As above. Social History: She does not smoke. She does not drink alcohol. Past Surgical History: As above. Review of Systems: Nausea, abdominal pain. No vomiting. Review of systems, ten points, otherwise, unremarkable. Physical Examination: Vital Signs: Reviewed. General: Patient is awake, alert, and oriented x3. HEENT: Pupils are equal and reactive. Anicteric. Neck: Supple. Chest: Clear. Abdomen: Epigastric right upper quadrant tenderness. No peritonitis present. Breasts: Deferred. Pelvic: Deferred. Rectal: Deferred. Extremities: Good capillary refill. Laboratory Data: Blood work shows WBC count of 5.9 with the hemoglobin of 13 and platelets of 326, p otassium 3.9, and glucose 92. Imaging of the abdomen including abdomen CT and ultrasound shows a cho lelithiasis with mild distention of the gallbladder and wall thickening. Colonic diverticulosis. Assessment: This is a 38-year-old patient with multiple medical problems including cerebrovascular a ccident and migraines and seizures, cervical cancer, Crohn disease, who came to us with acute cholecy stitis and symptomatic cholelithiasis. From the surgical standpoint, I explained to her options of l aparoscopic, possible open cholecystectomy with benefits, alternatives, and risks including, but not limited to, infection, bleeding, damage to adjacent structures, anesthesia complication, MA, and even . She also understands this may not relieve any symptoms, she might need more than one surgica l intervention. She was also advised to follow up with her primary doctor and field engineer for possible exacerbation of her autoimmune disease. She is today thinking about it. She is going to l et me know tomorrow morning what her options are, depends on how she feels today. ONEL/JIMMY Voice ID: [id number] Report ID: [id number]
[2024-04-28] MEDS ORDERED: HYDROMORPHONE HCL 1 MG/ML INJ IV PRN (14:30)
[2024-04-28] MEDS: HYDROMORPHONE HCL 2 MG/ML inj IV PRN (15:41)
[2024-04-28] MEDS: ONDANSETRON 4 MG/2 ML VIAL IV PRN (20:24)
--- NOTE | 2024-04-28 21:14 | P.PN ---
Date of Service: 04/28/24 Subjective Patient is clinically doing well. Patient denies any new complaints. Physical Examination - Vital Signs Reviewed - Physical Exam General: Alert, In no apparent distress, Oriented x3 Respiratory: Clear to auscultation bilaterally, Normal air movement Cardiovascular: Regular rate/rhythm, Normal S1 S2 Gastrointestinal: Soft and benign, Tenderness Musculoskeletal: No clubbing, No swelling Integumentary: No rashes, No breakdown Neurological: No focal deficits Assessment and Plan - Problems (Diagnosis) (1) Acute cholecystitis Current Visit: Yes Status: Acute Plan: Acute cholecystitis Pain control IV hydration Surgical consult Started on IV antibiotic empirically CT findings started Abdominal ultrasound findings noted as well N.p.o. after midnight for possible laparoscopic cholecystectomy in the morning. GI/DVT prophylaxis Advanced directive full code Discharge Plan: Home Plan to discharge in: 48 Hours - Advance Directives Does patient have a Living Will: No Does patient have a Durable POA for Healthcare: No - Code Status/Comfort Care Code Status: Full Code Time Spent Managing Pts Care (In Minutes): 48
[2024-04-29 06:06] LABS: Absolute Eosinophils 0.2 K/uL (0-0.5); Absolute Lymphocytes (CBC) 1.4 K/uL (0.7-4.9); Absolute Monocytes 0.4 K/uL (0.1-1.3); Absolute Neutrophil 3.6 K/uL (1.8-8.0); Basophils % 0.7 % (0-1.3); Eosinophils % 3.3 % (0-4.4); Hematocrit 37.8 % (36.0-45.0); Hemoglobin 12.2 g/dL (12.0-15.0); Lymphocytes % 24.8 % (15.3-44.8); MCH 29.6 pg (27.0-35.0); MCHC 32.2 g/dL (32.0-36.0); MCV 91.9 fL (80-100); MPV 9.3 fL (7.6-11.3); Monocytes % 7.6 % (3.3-12.3); Neutrophils % 63.6 % (41.7-73.7); Platelets 276 thou/uL (152-406); RBC Red Blood Cell Count 4.11 M/uL (3.86-4.86)
[2024-04-29] MEDS: KETOROLAC 30 MG/ML INJ IV PRN (06:24)
[2024-04-29 06:25] LABS: Albumin 3.4 g/dL (3.4-5.0); Bilirubin Total 0.8 mg/dL (0.2-1.0); Globulin 3.5 g/dL (2.3-3.5); Protein, Total 6.9 g/dL (6.4-8.2)
[2024-04-29] MEDS: Ringers Lactate 1,000 ML IV ONE (09:51)
[2024-04-29] MEDS ORDERED: ONDANSETRON 4 MG/2 ML VIAL ONE (11:04)
[2024-04-29] MEDS ORDERED: LIDOCAINE 1% MPF 5 ML VIAL ONE (11:04)
[2024-04-29] MEDS ORDERED: MIDAZOLAM HCL 2 MG/2 ML INJ ONE (11:04)
[2024-04-29] MEDS ORDERED: FENTANYL CITR 100 MCG/2 ML ONE (11:04)
[2024-04-29] MEDS ORDERED: KETOROLAC 30 MG/ML INJ ONE (11:04)
[2024-04-29] MEDS ORDERED: propofoL 200 MG/20 ML VIAL IV ONE (11:04)
[2024-04-29] MEDS ORDERED: ROCURONIUM 50 MG/5 ML VIAL IV ONE (11:04)
[2024-04-29] MEDS ORDERED: GLYCOPYRROLATE 0.2 MG/ML SYR ONE ×3 (11:05→12:57)
[2024-04-29] MEDS ORDERED: NEOSTIGMINE 1 MG/ML -10 ML VIAL ONE (12:57)
[2024-04-29] MEDS ORDERED: Mastisol Adhesive Liq ONE (13:07)
--- NOTE | 2024-04-29 13:12 | P.BOP ---
Preoperative diagnosis: acute cholecystitis, symptomatic cholelithiasis, cva, crohns disease Postoperative diagnosis: same plus umbilical hernia Primary procedure: 1. Laparoscopic cholecystectomy Secondary procedure: 2. Open repair of umbilical hernia Estimated blood loss: <10cc Specimen: gb, sac Findings: as above Anesthesia: General Complications: None Transferred to: Recovery Room Condition: Good
[2024-04-29] MEDS: ONDANSETRON 4 MG/2 ML VIAL ONE (13:34)
[2024-04-29] MEDS: HYDROMORPHONE HCL 2 MG/ML inj ONE (13:35)
--- NOTE | 2024-04-29 13:38 | RAD REPORT ---
EXAM DESCRIPTION: CT - Abdomen Pelvis W Contrast - 04/28/2024 6:55 am CLINICAL HISTORY: 38 years Female; ABD PAIN; IV ONLY Bed Name: [facility] TECHNIQUE: CT of the abdomen and pelvis with intravenous contrast. All CT scans at this facility use dose modulation, iterative reconstruction, and/or weight based dosi ng when appropriate to reduce radiation dose to as low as reasonably achievable. COMPARISON: None. FINDINGS: Lower thorax: Mild bibasilar atelectasis. Abdomen: Stomach: Within normal limits Liver: No focal lesions. No intrahepatic ductal distention. Gallbladder: Mildly distended with wall thickening and surrounding stranding. Pancreas: Within normal limits Spleen: Within normal limits Right kidney: No hydronephrosis. No focal lesion. Left kidney: No hydronephrosis. No focal lesion. Adrenal glands: Within normal limits Vascular structures: Within normal limits Nodes: No lymphadenopathy by size criteria Pelvis: Small bowel: No significant distention. Appendix: Within normal limits Colon: No distention or acute pericolonic edema. Colonic diverticulosis. Peritoneum: Trace free fluid in the pelvis. No free air. Bones: No acute bone findings. Bladder: Unremarkable. Reproductive organs: No acute findings. Lobulated contour, likely secondary to underlying fibroids. Soft tissues: Small fat-containing umbilical and supraumbilical ventral abdominal hernias. IMPRESSION: 1. Mildly distended gallbladder with wall thickening and surrounding stranding, concer simona for acute cholecystitis. See same-day right upper quadrant ultrasound for additional findings. 2. Colonic diverticulosis without diverticulitis. 3. Trace free fluid in the pelvis, likely physiologic. Electronically signed by: Ольга Babcock MD 04/28/2024 01:[address] [facility] Z9 Due to temporary technical issues with the PACS/Fluency reporting system, reports are being signed by the in house radiologist without review as a courtesy to ensure prompt reporting. The interpreting r adiologist is fully responsible for the content of the report.
--- NOTE | 2024-04-29 13:40 | RAD REPORT ---
EXAM DESCRIPTION: Abdomen Exam Limited CLINICAL HISTORY: The patient is 38 years old and is Female; ABD PAIN TECHNIQUE: Real-time ultrasound of the right upper quadrant with image documentation. COMPARISON: No relevant prior studies available. FINDINGS: GALLBLADDER: Gallstones are present within the gallbladder. A large gallstone is noted a t the level of the neck of the gallbladder appears to be immobile. No gallbladder wall thickening or pericholecystic fluid. COMMON BILE DUCT: Unremarkable as visualized. No stones. No dilation. PANCREAS: Unremarkable as visualized. IMPRESSION: Cholelithiasis with suggestion of a mobile gallstone near the neck of the gallbladder. N o evidence to suggest cholecystitis. Electronically signed by: Jennifer Knox MD 04/28/2024 12:22 AM CDT RP Due to temporary technical issues with the PACS/Fluency reporting system, reports are being signed by the in house radiologist without review as a courtesy to ensure prompt reporting. The interpreting r adiologist is fully responsible for the content of the report.
[2024-04-29] MEDS: PROMETHAZINE INJ 25 MG/ML AMP ONE (13:45)
[2024-04-29] MEDS: FENTANYL CITR 100 MCG/2 ML ONE (13:50)
[2024-04-29] MEDS: HYDROCODONE/APAP 5/325 MG TAB PO PRN (18:51)
--- NOTE | 2024-04-30 00:28 | OP ---
Date of Procedure: 04/29/2024 Surgeon: Per Cano MD Preoperative Diagnoses: Acute cholecystitis, symptomatic cholelithiasis, history of stroke, history of Crohn's disease, seizures. Postoperative Diagnoses: Acute cholecystitis, symptomatic cholelithiasis, history of stroke, history of Crohn's disease, seizures, umbilical hernia. Procedures: 1.Laparoscopic cholecystectomy. 2.Open repair of umbilical hernia. Estimated Blood Loss: Less than 10 cc. Specimens: Gallbladder and hernia sac. Findings: Incarcerated omentum on the hernia that was carefully released. Adhesions released from t ginny omentum were retracted after fully inspected and seemed to be viable. The gallbladder shows gallb ladder stones with gallbladder wall thickening. Anesthesia: General plus local. Complications: None. Indications: This is the case of a 38-year-old patient, comes to us with above diagnoses. Fully exp lained the benefits, alternatives, and risks of laparoscopic possible open cholecystectomy with repai r of umbilical hernia which include, but not limited to infection, bleeding, damage to adjacent struc tures, anesthesia complication, recurrence, choledocholithiasis, bile leak, pancreatitis, PA, and flor n . She also understands this may not relieve the symptoms. She might need more than one surgi dejah intervention. She understood, signed a consent. Procedure In Detail: The patient was brought to the operating room and placed in supine position. A nesthesia was done without complication. Abdominal area was prepped and draped in a sterile fashion. A time-out was called. A curvilinear incision was made in the supraumbilical region. Incision was carried down until we found the hernia sac. We the hernia sac from the fatty tissue and jaleesa bernard opened the hernia sac, noticed to have incarcerated omentum, so after we released some adhesions of the omentum to the hernia sac, we were able to inspect the omentum, seemed to be viable, so we red uced back into the abdominal cavity without bleeding and then removed the hernia sac. We proceeded jaleesa bernard to close and place #1 Vicryl in a [id number] fashion multiple times to approximate the herni ated end, but we used our cavity right now to put El trocar. Pneumoperitoneum was obtained. I p laced 3 more trocars, 5 mm each one of them in epigastric area and 2 in the right upper quadrant. At that moment, I put a grasper in the fundus of the gallbladder. After obtaining pneumoperitoneum, an other grasper in the infundibulum retracted the gallbladder in the inferolateral fashion exposing the triangle of Calot, obtaining critical view. Cystic duct and cystic artery were clearly isolated, fr eed circumferentially, and a connection between those and the gallbladder were clearly identified. I proceeded to ligate those by using at least 3 clips proximal, 1 clip distal, ligation in middle. Sa me was done with the cystic artery. No bile leak. No bleeding. The gallbladder was removed from li mike using Bovie cauterizer and removed from abdominal cavity using EndoCatch through the umbilical in cision. The area was inspected once again. No bile leak. No bleeding. At that moment, I proceeded to remove the trocars under direct vision, deflated pneumoperitoneum, closed the fascia and the umbi lical hernia with #1 Vicryl in a [id number] fashion. After that, we closed the subcutaneous tis sb with 3-0 chromic and skin in a subcuticular fashion with 3-0 chromic and Steri-Strips on top. Sp onge count and instrument counts correct. The patient tolerated the procedure well. The patient was sent to recovery in stable condition. ONEL/JIMMY Voice ID: [id number] Report ID: [id number]
--- NOTE | 2024-04-30 02:32 | P.PN ---
Date of Service: 04/29/24 Subjective Patient's status post laparoscopic cholecystectomy. Patient clinically doing much better. Patient started on liquid diet. As long as patient is tolerating it anticipate discharge in the morning. Physical Examination - Vital Signs Reviewed - Physical Exam General: Alert, In no apparent distress, Oriented x3 Respiratory: Clear to auscultation bilaterally, Normal air movement Cardiovascular: Regular rate/rhythm, Normal S1 S2 Gastrointestinal: Soft and benign, Appropriately tender Musculoskeletal: No clubbing, No swelling Integumentary: No rashes, No breakdown Neurological: No focal deficits Assessment and Plan - Problems (Diagnosis) (1) Acute cholecystitis Current Visit: Yes Status: Acute Plan: Patient is status post laparoscopic cholecystectomy. Patient clinically doing well. We will go ahead and advance diet and repeat labs. If patient is doing well in the morning then we anticipate discharge with outpatient follow-up. (2) TIA Current Visit: Yes Status: Acute Plan: resume antiplatelet therapy in 24-48hrs (3) Crohn's exacerbation Current Visit: Yes Status: Acute Plan: outpt GI f/up and antiinflammatory (4) Seizure disorder Current Visit: Yes Status: Acute Plan: antiepileptics Discharge Plan: Home Plan to discharge in: AM - Advance Directives Does patient have a Living Will: No Does patient have a Durable POA for Healthcare: No - Code Status/Comfort Care Code Status: Full Code Time Spent Managing Pts Care (In Minutes): 48
[2024-04-30 06:34] LABS: Absolute Eosinophils 0.2 K/uL (0-0.5); Absolute Lymphocytes (CBC) 1.4 K/uL (0.7-4.9); Absolute Monocytes 0.4 K/uL (0.1-1.3); Absolute Neutrophil 3.1 K/uL (1.8-8.0); Basophils % 0.8 % (0-1.3); Hematocrit 40.4 % (36.0-45.0); Hemoglobin 12.8 g/dL (12.0-15.0); Lymphocytes % 26.8 % (15.3-44.8); MCH 29.7 pg (27.0-35.0); MCHC 31.7 g/dL (32.0-36.0); MCV 93.9 fL (80-100); MPV 9.1 fL (7.6-11.3); Monocytes % 7.8 % (3.3-12.3); Neutrophils % 61.6 % (41.7-73.7); Nucleated Red Blood Cells % 0.1 % (0-0); Platelets 254 thou/uL (152-406); RBC Red Blood Cell Count 4.31 M/uL (3.86-4.86); Red Cell Distribution Width 14.2 % (12.1-15.2)
[2024-04-30 06:45] LABS: Albumin 3.4 g/dL (3.4-5.0); Albumin/Globulin Ratio 0.9 (1.1-1.8); Anion Gap 7.9 mEq/L (5.0-15.0); Bilirubin Total 0.8 mg/dL (0.2-1.0); Globulin 3.6 g/dL (2.3-3.5); Potassium 3.9 mEq/L (3.5-5.1)
--- NOTE | 2024-04-30 13:15 | P.PN ---
Subjective Date of Service: 04/30/24 Chief Complaint: Abdominal pain Pt complains of abdominal pain after eating cream of wheat. She is s/p lap chol, POD #1. Gen surgeon is following. No other complaints. Review of Systems General: Unremarkable Eyes: Unremarkable ENT: Unremarkable Respiratory: Unremarkable Cardiovascular: Unremarkable Gastrointestinal: Abdominal Pain Genitourinary: Unremarkable Musculoskeletal: Unremarkable Integumentary: Unremarkable Neurological: Unremarkable Lymphatics: Unremarkable Physical Examination - Vital Signs Temperature: 97.5 F Blood Pressure: 161/101 Pulse: 70 Respirations: 16 Pulse Ox (%): 100 - Physical Exam General: Alert, In no apparent distress, Oriented x3 HEENT: Atraumatic, Normocephalic, PERRLA Neck: Supple, 2+ carotid pulse no bruit, JVD not distended Respiratory: Clear to auscultation bilaterally, Normal air movement Cardiovascular: No edema, Normal pulses, Regular rate/rhythm, Normal S1 S2 Capillary refill: <2 Seconds Gastrointestinal: Normal bowel sounds, Soft and benign, Non-distended, Tenderness Musculoskeletal: No clubbing, No swelling Integumentary: No rashes, No breakdown Neurological: Normal gait, Normal speech, Normal strength at 5/5 x4 extr Lymphatics: No axilla or inguinal lymphadenopathy Assessment And Plan - Plan Acute Cholecystitis: S/P lap chol, POD#1. Will continue zosyn and prn pain med. Pt complains of abdominal pain after eating cream of wheat this am. Gen surgeon is following. Hx of TIA: Continue aspirin and check lipid panel Hx of crohn's disease: Will f/u with GI on outpt Hx of seizure d/o: Will continue phenytoin DVT ppx: SCD Dispo: Pending hospital course.
[2024-04-30] MEDS: PHENYTOIN 50 MG PO SCH (14:00)
[2024-04-30] MEDS: DOCUSATE NA 100 MG CAP PO ONE (21:26)
[2024-05-01] MEDS: POLYETHYL GLY 3350 17 GM/DOSE ONE (01:41)
[2024-05-01] MEDS: POLYETHYL GLY 3350 17 GM/DOSE PO ONE (01:46)
[2024-05-01 06:34] LABS: Absolute Eosinophils 0.2 K/uL (0-0.5); Absolute Lymphocytes (CBC) 1.3 K/uL (0.7-4.9); Absolute Monocytes 0.6 K/uL (0.1-1.3); Absolute Neutrophil 3.4 K/uL (1.8-8.0); Basophils % 0.6 % (0-1.3); Hematocrit 32.7 % (36.0-45.0); Hemoglobin 10.8 g/dL (12.0-15.0); Lymphocytes % 23.9 % (15.3-44.8); MCH 30.3 pg (27.0-35.0); MCHC 33.1 g/dL (32.0-36.0); MCV 91.6 fL (80-100); MPV 8.9 fL (7.6-11.3); Monocytes % 10.9 % (3.3-12.3); Neutrophils % 61.6 % (41.7-73.7); Nucleated Red Blood Cells % 0.1 % (0-0); Platelets 276 thou/uL (152-406); RBC Red Blood Cell Count 3.57 M/uL (3.86-4.86); Red Cell Distribution Width 14.3 % (12.1-15.2)
[2024-05-01 06:51] LABS: Anion Gap 7.9 mEq/L (5.0-15.0); Potassium 3.9 mEq/L (3.5-5.1)
[2024-05-01] MEDS: ASPIRIN EC 81 MG TAB PO SCH (08:41)
[2024-05-01 09:27] VITALS: O2SAT 100
[2024-05-01 11:47] VITALS: BP 129/74; TEMP 97.9
--- NOTE | 2024-05-01 12:18 | P.DS ---
Admission Date: 04/28/24 Discharge Date: 05/01/24 Disposition: ROUTINE DISCHARGE Discharge Condition: GOOD Reason for Admission: Abdominal pain Brief History of Present Illness: 38 yrs old Female with past medical history of anxiety, history of cervical cancer, CVA, Crohn's disease, hypertension, history of seizures, migraine came to ER with abdominal pain back pain and nausea which started today. Pain located in the epigastric and right upper quadrant regions. Dull aching pain without radiation 6 out of 10 in severity. Denies any diarrhea. Feeling nauseous but no vomiting. No fever or chills. Denies any chest pain or gem rtness of breath. No previous similar episodes. The patient was assessed in the ER and was admitted for further management of possible acute cholecystitis Hospital Course: Pt is a 38 yo female with past medical history of anxiety, cervical cancer, CVA, Crohn's disease, hypertension, seizures, and migraine who came to the ER with abdominal pain, back pain, and nausea which started on the day of admission. It was located in the epigastric and right upper quadrant regions. CT was concerning for cholecystitis. We admitted pt for acute cholecystitis. Gen surgeon did lap chol and we continued iv zosyn, prn antiemetic and pain med. Pt tolerated clear liquid diet before she was discharged. We advised her to take the clear liquid diet for 2 - 3 days before advancing to full liquid diet and solid food. She was discharged with cipro and flagyl for 1 more week. We continued home meds for other chronic medical problems. Pt was in NAD prior to discharge. Vital Signs/Physical Exam: Temp Pulse Resp BP Pulse Ox 97.9 F 73 16 129/74 100 05/01/24 11:47 05/01/24 11:47 05/01/24 11:47 05/01/24 11:47 05/01/24 11:47 Laboratory Data at Discharge: WBC 5.50 thou/uL (4.3-10.9) 05/01/24 06:18 Hgb 10.8 g/dL (12.0-15.0) L D 05/01/24 06:18 Hct 32.7 % (36.0-45.0) L 05/01/24 06:18 Plt Count 276 thou/uL (152-406) 05/01/24 06:18 Sodium 140 mEq/L (136-145) 05/01/24 06:18 Potassium 3.9 mEq/L (3.5-5.1) 05/01/24 06:18 BUN 7 mg/dL (7-18) 05/01/24 06:18 Creatinine 0.78 mg/dL (0.55-1.02) 05/01/24 06:18 Glucose 93 mg/dL (74-106) 05/01/24 06:18 Total Bilirubin 0.8 mg/dL (0.2-1.0) 04/30/24 06:11 AST 142 U/L (15-37) H 04/30/24 06:11 ALT 194 U/L (13-56) H 04/30/24 06:11 Alkaline Phosphatase 102 U/L (45-117) D 04/30/24 06:11 Triglycerides 90 mg/dL (<150) 04/30/24 06:11 Cholesterol 130 mg/dL (<200) 04/30/24 06:11 HDL Cholesterol 40 mg/dL (40-60) 04/30/24 06:11 Cholesterol/HDL Ratio 3.25 04/30/24 06:11 Lipase 38 U/L (13-75) 04/27/24 23:20 Home Medications: Phenytoin [Dilantin] 50 mg PO TID 04/28/24 Hydrocodone 5/APAP 325 [[place] 5/325*] 1 tab PO Q4H PRN #30 tab 04/30/24 Ciprofloxacin HCl [Cipro 500 MG Tablet] 500 mg PO DAILY 7 Days #7 tab 05/01/24 metroNIDAZOLE [Flagyl] 500 mg PO Q8H 7 Days #21 tab 05/01/24 New Medications: Ciprofloxacin HCl [Cipro 500 MG Tablet] 500 mg PO DAILY 7 Days #7 tab metroNIDAZOLE [Flagyl] 500 mg PO Q8H 7 Days #21 tab Hydrocodone 5/APAP 325 [[place] 5/325*] 1 tab PO Q4H PRN #30 tab PRN Reason: Pain Scale 5-7 (Moderate) Physician Discharge Instructions: OK TO DC IV AND DC HOME FOLLOW-UP WITH PRIMARY CARE PROVIDER IN 1-2 WEEKS FOLLOW-UP WITH Surgery in 1 week RETURN TO THE ER IF symptoms worsens CALL DR. MUNROE AT [phone] IF ANY QUESTIONS REGARDING HOSPITAL STAY. PLEASE CALL THE FLOOR AT [phone] IF ANY MEDICATION OR NURSING QUESTIONS. Diet: Regular Activity: Fall precautions Followup: [facility] [Primary Care Provider] - Per Cano MD [ACTIVE - CAN ADMIT] - 1-2 Weeks
== END 2024-05-01 13:39 | disposition home or self-care (01) | DRG 418 ==
LOC: ER 22:25 → ERHOLD 04-28 03:48 → 4TH 04-28 04:23
PROVIDERS: ADMIT Family Medicine; ATTEND Hospitalist
PROC: 0FT44ZZ Resection of Gallbladder, Percutaneous Endoscopic Approach (ICD-10-PCS; principal; 2024-04-29 12:30)
PROC: 0WQF0ZZ Repair Abdominal Wall, Open Approach (ICD-10-PCS; 2024-04-29 12:30)
DX: K80.00 Calculus of gallbladder with acute cholecystitis without obstruction (principal); K50.90 Crohn's disease, unspecified, without complications; K42.9 Umbilical hernia without obstruction or gangrene; I10 Essential (primary) hypertension; F41.9 Anxiety disorder, unspecified; G40.909 Epilepsy, unspecified, not intractable, without status epilepticus; Z88.5 Allergy status to narcotic agent; Z98.51 Tubal ligation status; Z85.41 Personal history of malignant neoplasm of cervix uteri; Z86.73 Personal history of transient ischemic attack (TIA), and cerebral infarction without residual deficits
CPT/HCPCS: 36415; 74177; 76705; 80048; 80053; 80061; 81001; 83690; 85025; 88302; 88304; 94010; 96365; 96366; 96375; 99285; J1170; J2001; J2250; J2270; J2405; J2543; J2550; J2704; J2710; J3010; J7030; J7120; Q9967

== ENCOUNTER 2024-05-17 07:59 | Emergency (ER) | payer OTHER ==
[2024-05-17 08:32] LABS: Absolute Basophils 0.1 K/uL (0-0.5); Absolute Eosinophils 0.3 K/uL (0-0.5); Absolute Lymphocytes (CBC) 1.2 K/uL (0.7-4.9); Absolute Monocytes 0.4 K/uL (0.1-1.3); Absolute Neutrophil 3.3 K/uL (1.8-8.0); Basophils % 1.1 % (0-1.3); Eosinophils % 6.1 % (0-4.4); Hematocrit 37.4 % (36.0-45.0); Hemoglobin 12.4 g/dL (12.0-15.0); Lymphocytes % 22.6 % (15.3-44.8); MCH 30.2 pg (27.0-35.0); MCHC 33.1 g/dL (32.0-36.0); MCV 91.4 fL (80-100); MPV 8.7 fL (7.6-11.3); Monocytes % 8.2 % (3.3-12.3); Platelets 401 thou/uL (152-406); RBC Red Blood Cell Count 4.09 M/uL (3.86-4.86); Red Cell Distribution Width 13.9 % (12.1-15.2)
[2024-05-17 08:51] LABS: Anion Gap 7.8 mEq/L (5.0-15.0); BUN Blood Urea Nitrogen 12 mg/dL (7-18); Bicarbonate 26 mEq/L (21-32); Glomerular Filtration Rate 109 ml/min (=/>90); Glucose Level 94 mg/dL (74-106); Potassium 3.8 mEq/L (3.5-5.1); Sodium Level 140 mEq/L (136-145)
[2024-05-17 08:54] LABS: Troponin High Sensitivity < 3.0 pg/mL (<58.9)
--- NOTE | 2024-05-17 08:56 | RAD REPORT ---
EXAM DESCRIPTION: RAD - Chest Single View - 05/17/2024 8:34 am CLINICAL HISTORY: CHEST PAIN Chest pain. COMPARISON: Chest Single View dated 08/12/2022; Chest Single View dated 09/18/2016; Chest Single Vie w dated 04/10/2016; CHEST PA AND LAT 2 VIEW dated 04/09/2012 FINDINGS: Portable technique limits examination quality. The lungs are grossly clear. The heart is normal in size. No displaced fractures. IMPRESSION: No acute intrathoracic process suspected.
[2024-05-17] MEDS ORDERED: ASPIRIN 81 MG CHEWABLE TABLET ONE (08:59)
[2024-05-17] MEDS ORDERED: KETOROLAC 30 MG/ML INJ ONE (09:07)
--- NOTE | 2024-05-17 09:42 | ER ---
Nurse's Notes [facility] Name: Kristina Christensen Age: 39 yrs Sex: Female : 1985 Arrival Date: 05/17/2024 Time: 07:59 Bed 13 Private MD: Diagnosis: Chest pain, unspecified Presentation: 05/17 08:12 Chief complaint: Midsternal chest pain and SOB since last night. Coronavirus screen: At this time, the client does not indicate any symptoms associated with coronavirus-19. Ebola Screen: No symptoms or risks identified at this time. Initial Sepsis Screen: Does the patient meet any 2 criteria? No. Patient's initial sepsis screen is negative. Does the patient have a suspected source of infection? No. Patient's initial sepsis screen is negative. Risk Assessment: Do you want to hurt yourself or someone else? Patient reports no desire to harm self or others. Onset of symptoms was May 17, 2024 at 02:30. 08:12 Method Of Arrival: Ambulatory hb 08:12 Acuity: GAURAV 2 hb Historical: - Allergies: 08:13 tramadol; hb - PMHx: 08:13 Anxiety; Cancer; remission from cervical cancer for 3.5 years; Cerebrovascular hb accident; Crohn's; Hypertension; HYPOGLYCEMIA; Migraine; Seizures; - PSHx: 08:13 Ligation of fallopian tube; Cholecystectomy; hb - Immunization history:: Adult Immunizations up to date. - Infectious Disease History:: Denies. - Social history:: Smoking status: Patient denies any tobacco usage or history of. Screenin:05 [facility] ED Fall Risk Assessment (Adult) History of falling in the last 3 months, rs5 including since admission No falls in past 3 months (0 pts) Confusion or Disorientation No (0 pts) Intoxicated or Sedated No (0 pts) Impaired Gait No (0 pts) Mobility Assist Device Used No (0 pt) Altered Elimination No (0 pt) Score/Fall Risk Level 0 - 2 = Low Risk Oriented to surroundings, Maintained a safe environment. Abuse screen: Denies threats or abuse. Nutritional screening: No deficits noted. Tuberculosis screening: No symptoms or risk factors identified. Assessment: 08:21 General: Appears in no apparent distress. uncomfortable, Behavior is calm, cooperative. iw Pain: Complains of pain in mid-sternal area, right breast and left breast Pain began last night. Neuro: Level of Consciousness is awake, alert, obeys commands, Oriented to person, place, time, situation, Moves all extremities. Full function. Cardiovascular: Reports chest pain. Respiratory: Respiratory effort is even, unlabored, Respiratory pattern is regular, symmetrical. 09:42 Reassessment: Patient and/or family updated on plan of care and expected duration. Pain rs5 level reassessed. Patient is alert, oriented x 3, equal unlabored respirations, skin warm/dry/pink. Patient denies pain at this time. Patient states feeling better. Patient states symptoms have improved. Vital Signs: 08:12 BP 149 / 102; Pulse 81; Resp 18; Temp 97.8(TE); Pulse Ox 100% on R/A; Weight 101.6 kg; hb Height 5 ft. 4 in. ; Pain 7/10; 09:00 BP 139 / 94; Pulse 71; Resp 17; Pulse Ox 98% on R/A; rs5 09:44 BP 130 / 88; Pulse 73; Resp 18; Pulse Ox 99% on R/A; rs5 08:12 Body Mass Index 38.45 (101.60 kg, 162.56 cm) hb 08:12 Pain Scale: Adult hb ED Course: 08:01 Patient arrived in ED. im 08:01 Fly Basurto DO is Attending Physician. ms3 08:05 Patient has correct armband on for positive identification. Placed in gown. Bed in low rs5 position. Call light in reach. Side rails up X2. Client placed on continuous cardiac and pulse oximetry monitoring. NIBP monitoring applied. sprinkler fitter helper on. Pulse ox on. NIBP on. 08:13 Triage completed. hb 08:14 Arm band placed on. hb 08:21 Jemima Thomas, RN is Primary Nurse. iw 08:28 CBC with Diff Sent. em1 08:28 Troponin HS Sent. em1 08:28 Basic Metabolic Panel Sent. em1 08:28 Initial lab(s) drawn, by me, sent to lab. Inserted saline lock: 22 gauge in right em1 antecubital area, using aseptic technique. Blood collected. Flushed with 10 mL NS. 08:36 XRAY Chest (1 view) In Process Unspecified. EDMS 09:41 Hay Novoa MD is Referral Physician. ms3 09:43 No provider procedures requiring assistance completed. rs5 09:50 IV discontinued, intact, bleeding controlled, No redness/swelling at site. Pressure rs5 dressing applied. Administered Medications: 09:10 Drug: Ketorolac IVP 10 mg 10 mg IVP once Route: IVP; Site: right antecubital; rs5 09:44 Follow up: Response: No adverse reaction; Pain is decreased rs5 09:11 Drug: Aspirin PO Chewable Tablet 324 mg PO once; 81 mg tablets x 4 Route: PO; rs5 09:44 Follow up: Response: No adverse reaction rs5 Medication: 09:43 VIS not applicable for this client. rs5 Outcome: 09:41 Discharge ordered by . ms3 09:50 Discharged to home ambulatory, rs5 09:50 Condition: stable 09:50 Discharge instructions given to patient, family, Instructed on discharge instructions, follow up and referral plans. Demonstrated understanding of instructions, follow-up care, 09:51 Patient left the ED. rs5 Signatures: Dispatcher [employer] EDMS Jemima Thomas, Aric Damon RN em1 Dagmar Colón RN RN Fly Basurto DO DO ms3 Baldemar Gay RN RN rs5 Kendal Gtz
--- NOTE | 2024-05-17 09:42 | EDPHYS ---
Physician Documentation [facility] Name: Kristina Christensen Age: 39 yrs Sex: Female : 1985 Arrival Date: 05/17/2024 Time: 07:59 Bed 13 Private MD: ED Physician Fly Basurto HPI: 05/17 09:41 This 39 yrs old Black Female presents to ER via Ambulatory with complaints of Chest ms3 Pain. 09:41 39-year-old female with past medical history of cervical cancer, epilepsy, Crohn's ms3 presents to the emergency department for chest pain began at 230. Patient states pain is worse with deep breathing and movement. Patient rates the pain a 7/10. She states the pain comes and episodes that last approximately 1 minute.. Historical: - Allergies: 08:13 tramadol; hb - PMHx: 08:13 Anxiety; Cancer; remission from cervical cancer for 3.5 years; Cerebrovascular hb accident; Crohn's; Hypertension; HYPOGLYCEMIA; Migraine; Seizures; - PSHx: 08:13 Ligation of fallopian tube; Cholecystectomy; hb - Immunization history:: Adult Immunizations up to date. - Infectious Disease History:: Denies. - Social history:: Smoking status: Patient denies any tobacco usage or history of. ROS: 09:41 Constitutional: Negative for fever, and chills. Neck: Negative for injury, pain, and ms3 swelling, Respiratory: Negative for shortness of breath, cough, wheezing, and pleuritic chest pain, Abdomen/GI: Negative for abdominal pain, nausea, vomiting, diarrhea, and constipation, MS/Extremity: Negative for injury and deformity, Skin: Negative for injury, rash, and discoloration, 09:41 Cardiovascular: Positive for chest pain, Exam: 09:41 Constitutional: This is a well developed, well nourished patient who is awake, alert, ms3 and in no acute distress. Head/Face: Normocephalic, atraumatic. 09:41 Cardiovascular: Regular rate and rhythm with a normal S1 and S2. No gallops, murmurs, or rubs. Normal PMI, no JVD. No pulse deficits. Respiratory: Lungs have equal breath sounds bilaterally, clear to auscultation and percussion. No rales, rhonchi or wheezes noted. No increased work of breathing, no retractions or nasal flaring. Abdomen/GI: Soft, non-tender, with normal bowel sounds. No distension or tympany. No guarding or rebound. No evidence of tenderness throughout. 09:41 Chest/axilla: Inspection: normal, Palpation: tenderness, that is moderate, that totally reproduces the patient's complaints, 12:06 ECG was reviewed by the Attending Physician. ms3 Vital Signs: 08:12 BP 149 / 102; Pulse 81; Resp 18; Temp 97.8(TE); Pulse Ox 100% on R/A; Weight 101.6 kg; hb Height 5 ft. 4 in. ; Pain 7/10; 09:00 BP 139 / 94; Pulse 71; Resp 17; Pulse Ox 98% on R/A; rs5 09:44 BP 130 / 88; Pulse 73; Resp 18; Pulse Ox 99% on R/A; rs5 08:12 Body Mass Index 38.45 (101.60 kg, 162.56 cm) hb 08:12 Pain Scale: Adult hb MDM: 08:29 Patient medically screened. ms3 09:41 Differential diagnosis: abnormal EKG, acute myocardial infarction, costochondritis. ms3 HEART Score: History: Slightly Suspicious (0), ECG: Normal (0), Age: < or = 45 years (0), Risk Factors: No Risk Factors Known (0), Troponin: < or = 1 x Normal Limit (0), Total Score = 0. Data reviewed: vital signs, nurses notes, and as a result, I will discharge patient. I considered the following discharge prescriptions or medication management in the emergency department Medications were administered in the Emergency Department. See MAR. Independent interpretation of the following test(s) in the Emergency Department EKG: See my EKG interpretation above. Counseling: I had a detailed discussion with the patient and/or guardian regarding the historical points, exam findings, and any diagnostic results supporting the discharge/admit diagnosis, lab results, radiology results, the need for outpatient follow up, to return to the emergency department if symptoms worsen or persist or if there are any questions or concerns that arise at home. Special discussion: Based on the patient's history, exam, and Dx evaluation, there is no indication for emergent intervention or inpatient Tx. It is understood by the patient/guardian that if the Sx's persist or worsen they need to return immediately for re-evaluation. ED course: Discussed labs, EKG, chest x-ray with patient. Patient to follow-up with Dr. Novoa in 2 to 3 days. Patient understands and agrees with plan. All questions were answered. Return precautions discussed include worsening symptoms, or any other concerns. On reevaluation patient symptoms improved, patient is alert and oriented x 4, in no apparent distress, nontoxic-appearing, ambulatory in the emergency department.. 05/17 08:02 Order name: Basic Metabolic Panel; Complete Time: 09:02 ms3 05/17 08:02 Order name: CBC with Diff; Complete Time: 09:02 ms3 05/17 08:02 Order name: Troponin HS; Complete Time: 09:02 ms3 05/17 08:02 Order name: XRAY Chest (1 view); Complete Time: 09:02 ms3 05/17 08:02 Order name: Cardiac monitoring; Complete Time: 08:58 ms3 05/17 08:02 Order name: EKG - Nurse/Tech; Complete Time: 08:35 ms3 05/17 08:02 Order name: IV Saline Lock; Complete Time: 08:28 ms3 05/17 08:02 Order name: Labs collected and sent; Complete Time: 08:28 ms3 05/17 08:02 Order name: O2 Per Protocol; Complete Time: 08:35 ms3 05/17 08:02 Order name: O2 Sat Monitoring; Complete Time: 08:35 ms3 EC:06 Rate is 74 beats/min. Rhythm is regular. QRS [place] is Normal. VT interval is normal. QRS ms3 interval is normal. QT interval is normal. Clinical impression: Normal ECG. Interpreted by me. Reviewed by me. Administered Medications: 09:10 Drug: Ketorolac IVP 10 mg 10 mg IVP once Route: IVP; Site: right antecubital; rs5 09:44 Follow up: Response: No adverse reaction; Pain is decreased rs5 09:11 Drug: Aspirin PO Chewable Tablet 324 mg PO once; 81 mg tablets x 4 Route: PO; rs5 09:44 Follow up: Response: No adverse reaction rs5 Disposition Summary: 05/17/24 09:41 Discharge Ordered Notes: Location: Home ms3 Condition: Stable ms3 Diagnosis - Chest pain, unspecified ms3 Followup: ms3 - With: Hay Novoa MD - When: 2 - 3 days - Reason: Recheck today's complaints Discharge Instructions: - Discharge Summary Sheet ms3 - Nonspecific Chest Pain, Adult ms3 Forms: - Medication Reconciliation Form ms3 - Antibiotic Education ms3 - Prescription Opioid Use ms3 - Patient Portal Instructions ms3 - Leadership Thank You Letter ms3 Prescriptions: - Ibuprofen 600 mg Oral Tablet - take 1 tablet ORAL route every 6 hours As needed take with food; 30 tablet; ms3 Refills: 0, Product Selection Permitted Signatures: Dispatcher [employer] EDJerald Morgan MD MD rn Baxter, Heather, RN RN hb Sims, Marcus, DO DO ms3 Baldemar Gay RN RN rs5 Corrections: (The following items were deleted from the chart) 08:02 08:02 Chest Single View+[email or web address] ordered. [facility]
[2024-05-17 10:19] VITALS: TEMP 97.8
[2024-05-17 10:20] VITALS: BP 130/88; O2SAT 99
--- OUTSIDE RECORDS SUMMARY | 2024-05-20 08:17 | XMS REPORT | Continuity of Care Document ---
Author Name Unknown Address [address] [place] [address] [facility] thconnect Address [address] [place] [address] Care Team Providers Care Director Career Name Role Phone [facility], [facility] [place] Care Physician Unavailable [email or web address] Attending Clinician UnavailLUKE Galvan Attending Clinician Unavailable Luke Simmons Attending Clinician [phone] KEYSHA VIVEROS Attending Clinician Unavailable KEYSHA VIVEROS Attending Clinician Unavailable Doctor Unassigned, [place] Attending Clinician U Jose Schilling Attending Clinician Unavailable KARLEE GOMEZ Attending Clinician Unavailab Karlee Hope DO Attending Clinician [phone] Dinh PAC, Nohemi S Attending Clinician [phone] Jordan VEGAS, Mony Key Attending Clinician UnaTASHA Avila Attending Clinician Unavailable KILEY STROUD Attending Clinician Unavailable Tasha De Oliveira MD Attending Clinician [phone] Riri Cerad Attending Clinician [phone] Sam Dodson Attending Clinician [phone] Fredrick Mina DO Attending Clinician [phone] Anton Williamson MD Attending Clinician [phone] MAIA SHRESTHA Attending Clinician Unavailable Fady BANDA, Maia S Attending Clinician [phone] [email or web address]_S Admitting Clinician Unavaila ble KNOW, DOES_NOT Admitting Clinician Unavailable Physician, No Primary or Family Admitting Clinic gamal Unavailable Payers Payer Name Policy Type Policy Number Effective Date Expirati on Date Source [facility] [id number] 2020 00:00:00 [place] [id number] 2019 00:00:00 MEDICAID SSI PENDING PENDING 2019 00:00:00 [facility] (MEDICAID HMO) [id number] 2016 00:00:00 2023 00:00:00 [employer] [id number] 2023 00:00:00 Problems Condition Name Condition Details Condition Category Status Onset Date Resolution Date Last Treatment Date Treating Clinician Comments Source Presence of 52 mg levonorges trel-relea sing intrauteri ne device (IUD) Presence of 52 mg levonorges trel-relea sing intrauteri ne device (IUD) Disease Active 03-29 00:00: 00 [facility] Prolapse of anterior vaginal wall Prolapse of anterior vaginal wall Disease Active 03-19 00:00: 00 [facility] Posterior vaginal wall prolapse Posterior vaginal wall prolapse Disease Active 03-19 00:00: 00 [facility] Constipati on, unspecifie d constipati on type Constipati on, unspecifie d constipati on type Disease Active 18 00:00: 00 [facility] Weakness Weakness Disease Active 06-03 00:00: 00 [facility] Morbid obesity with body mass index of 40.0-49.9 Morbid obesity with body mass index of 40.0-49.9 Disease Active 06-03 00:00: 00 [facility] Morbid obesity with body mass index of 40.0-49.9 Morbid obesity with body mass index of 40.0-49.9 Disease Active 06-03 00:00: 00 [facility] Cyst of right ovary Cyst of right ovary Disease Active 02-01 00:00: 00 [facility] History of cervical cancer History of cervical cancer Disease Active 02-01 00:00: 00 [facility] Moderate single current episode of major depressive disorder Moderate single current episode of major depressive disorder Disease Active 02-01 00:00: 00 [facility] Normal delivery Normal delivery Disease Active 03-04 00:00: 00 [facility] Allergies, Adverse Reactions, Alerts Allergy Name Allergy Type Status Severity Reaction(s) Onset Date Inactive Date Treating Clinician Comments Source tramadol DA Active U 10-14 00:00: 00 [facility] tramadol DA Active U RASH,HIVES 10-14 00:00: 00 [facility] No Known Allergie s DA Active U 2017-10-15 00:00: 00 [facility] Tramadol Propensi ty to adverse reaction s Active Hives 2016-10 0 00:00: 00 [facility] TRAMADOL DRUG INGREDI Active Hives 2016-10 0 00:00: 00 [facility] Social History Social Habit Start Date Stop Date Quantity Comments Source History of tobacco use Current smoker [facility] History SDOH Alcohol Frequency [facility] History SDOH Alcohol Std Drinks [facility] History SDOH Alcohol Binge [facility] Exposure to SARS-CoV-2 (event) 2021-10-01 00:00:00 2021-10-31 12:20:00 Not sure [facility] History of Social function 2021-10-31 00:00:00 2021-10-31 00:00:00 [facility] Alcohol intake 2021-10-31 00:00:00 2021-10-31 00:00:00 Current drinker of alcohol (finding) [facility] Tobacco use and exposure 2021-01-27 00:00:00 2021-01-27 00:00:00 Smokeless tobacco non-user [facility] Alcohol Comment 2018-01-31 00:00:00 2018-01-31 00:00:00 social [facility] Sex Assigned At 1985 00:00:00 1985 00:00:00 [facility] Smoking Status Start Date Stop Date Source Ex-smoker 2021-01-27 00:00:00 2021-01-27 00:00:00 [facility] Medications Ordered Medication Name Filled Medication Name Start Date Stop Date Current Medication? Ordering Clinician Indication Dosage Frequency Signature (SIG) Comments Components Source ibuprofen (IBU) tablet 600 mg 10-03 03:00: 00 10-03 03:08 :00 No 600mg 600 mg, Oral, ONCE, 1 dose, On 10/02/23 at 2100, [facility] HYDROcodone -acetaminop hen (NORCO 5) 5-325 mg tablet 1 tablet 10-31 19:45: 00 10-31 18:47 :00 No 1{tbl} 1 tablet, Oral, ONCE, 1 dose, On 10/31/21 at 1345, [facility] amoxicillin 875 mg tablet 10-31 00:00: 00 11-11 05:59 :00 No [id number] 875mg Take 1 tablet by mouth 2 (two) times daily for 10 days. [facility] iopamidol (ISOVUE 370-500 mL) injection 100 mL 06-19 00:00: 00 06-19 00:00 :00 No [id number] 100mL 100 mL, Intravenou s, ONCE, 1 dose, On Mon06/18/21 at 1900, Routine [facility] midazolam (VERSED) injection 2 mg 06-18 23:00: 00 06-18 21:56 :00 No 2mg 2 mg, IV Push, ONCE, 1 dose, On Mon06/18/21 at 1800, STAT [facility] FENTanyl PF (SUBLIMAZE (PF)) injection 50 mcg 06-18 22:45: 00 06-18 21:41 :00 No 50ug 50 mcg, Slow IV Push, ONCE, 1 dose, On Mon06/18/21 at 1745, STAT [facility] ondansetron (ZOFRAN (PF)) injection 4 mg 06-18 22:00: 00 06-18 21:16 :00 No 4mg 4 mg, Slow IV Push, ONCE, 1 dose, On Mon06/18/21 at 1700, [facility] FENTanyl PF (SUBLIMAZE (PF)) injection 50 mcg 06-18 22:00: 00 06-18 21:16 :00 No 50ug 50 mcg, Slow IV Push, ONCE, 1 dose, On Mon06/18/21 at 1700, STAT [facility] ondansetron (ZOFRAN ODT) 4 mg disintegrat ing tablet 06-18 00:00: 00 Yes [id number] 4mg Take 1 tablet by mouth every 8 (eight) hours as needed for Nausea and Vomiting (N/V). [facility] acetaminoph en-codeine 300-30 mg tablet 06-18 00:00: 00 Yes [id number] 1{tbl} Take 1 tablet by mouth every 4 (four) hours as needed for Pain (scale 7-10). Indication s: acute pain [facility] levonorgest reL (MIRENA) IUD 1 Device 03-29 15:45: 00 03-29 14:35 :00 No [id number] 1{devic e} [facility] miSOPROStoL 200 mcg tablet 609 00:00: 00 03-29 00:00 :00 No [id number] 200ug Take 1 tablet by mouth SEE-INSTRU CTIONS. [facility] ketorolac (TORADOL) injection 30 mg 02-22 07:30: 00 02-22 06:33 :00 No 30mg 30 mg, Slow IV Push, ONCE, 1 dose, 02/22/21 at 0230, [facility]
Fa culty member approving Restricted medication : Riri ISAACS [facility] KCL (POTASSIUM CHLORIDE) 20 mEq in NaCl 0.9% (NS) 100 mL piggyback 02-22 06:30: 00 02-22 05:53 :00 No 20meq 20 mEq, IV Piggyback, ONCE, 1 dose, 02/22/21 at 0130, 100 mL [facility] KCL (KLOR-CON M20) tablet 40 mEq 02-22 06:30: 00 02-22 05:45 :00 No 40meq 40 mEq, Oral, ONCE, 1 dose, 02/22/21 at 0130, Routine [facility] acetaminoph en (TYLENOL) tablet 1,000 mg 02-22 05:00: 00 02-22 04:02 :00 No 1000mg 1,000 mg, Oral, ONCE, 1 dose, 02/22/21 at 0000, [facility] ondansetron (ZOFRAN (PF)) injection 4 mg 02-22 05:00: 00 02-22 04:16 :00 No 4mg 4 mg, Slow IV Push, ONCE, 1 dose, 02/22/21 at 0000, [facility] NaCl 0.9% (NS) bolus infusion 1,000 mL 02-22 05:00: 00 02-22 10:28 :00 No 1000mL at 999 mL/hr, 1,000 mL, IV Infusion, ONCE, 1 dose, 02/22/21 at 0000, STAT [facility] iopamidol (ISOVUE 370-500 mL) injection 120 mL 02-22 04:08: 00 02-22 04:11 :00 No [id number] 120mL 120 mL, Intravenou s, ONCE, 1 dose, 02/21/21 at 2315, Routine [facility] polyethylen e glycol 3350 (MIRALAX) 17 gram/dose powder 02-22 00:00: 00 02-27 04:59 :00 No [id number] 17g Take 17 g by mouth daily for 4 days. [facility] miSOPROStoL 200 mcg tablet 01-27 00:00: 00 02-24 00:00 :00 No [id number] 200ug Take 1 tablet by mouth SEE-INSTRU CTIONS. Take one tab the night before and one tab the morning of procedure [facility] ketorolac (TORADOL) injection 15 mg 01-19 23:15: 00 01-19 22:18 :00 No 15mg 15 mg, Slow IV Push, ONCE, 1 dose, 01/19/21 at 1815, [facility] : SAM EVANS [facility] ondansetron (ZOFRAN (PF)) injection 4 mg 01-19 21:30: 00 01-19 21:29 :00 No 4mg 4 mg, Slow IV Push, ONCE, 1 dose, 01/19/21 at 1630, [facility] iohexol (OMNIPAQUE 350 BULK-150 mL) injection 120 mL 01-19 21:15: 00 01-19 21:15 :00 No [id number] 120mL 120 mL, Intravenou s, ONCE, 1 dose, 01/19/21 at 1615, Routine [facility] ibuprofen 800 mg tablet 01-19 00:00: 00 Yes [id number] 800mg Take 1 tablet by mouth every 8 (eight) hours as needed for Pain (scale 4-6). Take with food [facility] acetaminoph en-codeine 300-30 mg tablet 4-20 00:00: 00 01-27 04:59 :00 No [id number] 1{tbl} Take 1 tablet by mouth every 6 (six) hours as needed for Pain (scale 7-10) for up to 7 days. Indication s: acute pain [facility] cephALEXin 500 mg capsule 4-14 00:00: 00 02-24 00:00 :00 No 500mg Take 500 mg by mouth 2 (two) times daily. [facility] diclofenac 75 mg EC tablet 12-25 00:00: 00 01-27 00:00 :00 No 75mg Take 1 tablet by mouth 2 (two) times daily with meals. [facility] cloNIDine 0.1 mg tablet 04-24 00:00: 00 Yes [id number] .1mg Take 1 tablet by mouth 2 (two) times daily. [facility] acetaminoph en-codeine (TYLENOL-CO DEINE #3) 300-30 mg tablet 16 00:00: 00 01-27 00:00 :00 No [id number] 1{tbl} Take 1 tablet by mouth every 4 (four) hours as needed for Pain (scale 7-10). [facility] amoxicillin 500 mg capsule 116 00:00: 01-27 00:00 :00 No [id number] 500mg Take 1 capsule by mouth 3 (three) times daily. [facility] cyclobenzap rine 5 mg tablet 06-22 00:00: 00 Yes 5mg Take 1 tablet by mouth 3 (three) times daily. [facility] acetaminoph en-codeine (TYLENOL-CO DEINE #3) 300-30 mg tablet 06-22 00:00: 00 01-27 00:00 :00 No 1{tbl} Take 1 tablet by mouth every 6 (six) hours as needed for Pain (scale 4-6) (for cough). [facility] aspirin 81 mg chewable tablet 06-05 00:00: 00 03-10 00:00 :00 No 81mg Take 1 tablet by mouth daily. [facility] atorvastati n 20 mg tablet 06-04 00:00: 00 Yes 20mg Take 1 tablet by mouth at bedtime. [facility] SERTraline 50 mg tablet 06-04 00:00: 00 Yes [id number] 50mg Take 1 tablet by mouth daily. [facility] acetaminoph en-codeine (TYLENOL-CO DEINE #3) 300-30 mg tablet 4-23 00:00: 00 03-10 00:00 :00 No 1{tbl} Take 1 tablet by mouth every 6 (six) hours as needed for Pain (scale 4-6). [facility] VIT27&CALCI UM-IRON-FA 60 MG (IRON)-1 MG ORAL TAB 03-05 00:00: 00 Yes Take one tablet by mouth daily [facility] SIMETHICONE 80 MG ORAL CHEW 03-05 00:00: 00 Yes 1 Tab Oral PC+HSPRN [facility] PHENYTOIN SODIUM EXTENDED 100 MG ORAL CAP 03-05 00:00: 00 Yes 1 Cap Oral BID [facility] DOCUSATE CALCIUM 240 MG ORAL CAP 03-05 00:00: 00 01-27 00:00 :00 No Take one capsule by mouth daily as needed for constipati on [facility] FERROUS SULFATE 325 MG (65 MG IRON) ORAL TAB 03-05 00:00: 00 01-27 00:00 :00 No Take one tablet by mouth twice daily [facility] Immunizations Ordered Immunization Name Filled Immunization Name Date Status Comments Source SARS-COV-2 COVID-19 MODERNA VACCINE 2021-04-19 00:00:00 Completed [facility] SARS-COV-2 COVID-19 MODERNA 12+ YRS VACCINE 2021-04-19 00:00:00 Completed [facility] SARS-COV-2 COVID-19 MODERNA VACCINE 2021-04-19 00:00:00 Completed [facility] SARS-COV-2 COVID-19 MODERNA VACCINE 2021-04-19 00:00:00 Completed [facility] SARS-COV-2 COVID-19 MODERNA VACCINE 2021-04-19 00:00:00 Completed [facility] SARS-COV-2 COVID-19 MODERNA VACCINE 2021-04-19 00:00:00 Completed [facility] SARS-COV-2 COVID-19 MODERNA VACCINE 2021-04-19 00:00:00 Completed [facility] SARS-COV-2 COVID-19 MODERNA VACCINE 2021-03-20 00:00:00 Completed [facility] SARS-COV-2 COVID-19 MODERNA 12+ YRS VACCINE 2021-03-20 00:00:00 Completed [facility] SARS-COV-2 COVID-19 MODERNA VACCINE 2021-03-20 00:00:00 Completed [facility] SARS-COV-2 COVID-19 MODERNA VACCINE 2021-03-20 00:00:00 Completed [facility] SARS-COV-2 COVID-19 MODERNA VACCINE 2021-03-20 00:00:00 Completed [facility] SARS-COV-2 COVID-19 MODERNA VACCINE 2021-03-20 00:00:00 Completed [facility] SARS-COV-2 COVID-19 MODERNA VACCINE 2021-03-20 00:00:00 Completed [facility] H1n1 Vaccine 2009-07-16 00:00:00 Completed [facility] H1n1 Vaccine 2009-07-16 00:00:00 Completed [facility] H1n1 Vaccine 2009-07-16 00:00:00 Completed [facility] H1n1 Vaccine 2009-07-16 00:00:00 Completed [facility] H1n1 Vaccine 2009-07-16 00:00:00 Completed [facility] H1n1 Vaccine 2009-07-16 00:00:00 Completed [facility] H1n1 Vaccine 2009-07-16 00:00:00 Completed [facility] H1n1 Vaccine Unknown Completed [facility] SARS-COV-2 COVID-19 MODERNA 12+ YRS VACCINE Unknown Completed [facility] H1n1 Vaccine Unknown Completed [facility] SARS-COV-2 COVID-19 MODERNA 12+ YRS VACCINE Unknown Completed [facility] SARS-COV-2 COVID-19 MODERNA 12+ YRS VACCINE Unknown Completed [facility] Vital Signs Vital Name Observation Time Observation Value Cornelius osorio Systolic blood pressure 2023-10-03 02:36:00 148 mm[Hg] [facility] Diastolic blood pressure 2023-10-03 02:36:00 99 mm[Hg] [facility] Heart rate 2023-10-03 02:36:00 86 /min [facility] Body temperature 2023-10-03 02:36:00 37.11 Cindi [facility] Respiratory rate 2023-10-03 02:36:00 16 /min [facility] Body height 2023-10-03 02:36:00 165.1 cm [facility] Body weight 2023-10-03 02:36:00 104.599 kg [facility] BMI 2023-10-03 02:36:00 38.37 kg/m2 [facility] Oxygen saturation in Arterial blood by Pulse oximetry 2023-10-03 02:36:00 100 /min [facility] Systolic blood pressure 2021-10-31 18:32:00 151 mm[Hg] [facility] Diastolic blood pressure 2021-10-31 18:32:00 109 mm[Hg] [facility] Heart rate 2021-10-31 18:32:00 92 /min [facility] Body temperature 2021-10-31 18:32:00 36.89 Cindi [facility] Respiratory rate 2021-10-31 18:32:00 16 /min [facility] Body height 2021-10-31 18:32:00 162.6 cm [facility] Body weight 2021-10-31 18:32:00 99.791 kg [facility] BMI 2021-10-31 18:32:00 37.76 kg/m2 [facility] Oxygen saturation in Arterial blood by Pulse oximetry 2021-10-31 18:32:00 100 /min [facility] Systolic blood pressure 2021-06-19 00:30:00 135 mm[Hg] [facility] Diastolic blood pressure 2021-06-19 00:30:00 95 mm[Hg] [facility] Heart rate 2021-06-19 00:30:00 73 /min [facility] Respiratory rate 2021-06-19 00:30:00 16 /min [facility] Oxygen saturation in Arterial blood by Pulse oximetry 2021-06-19 00:30:00 100 /min [facility] Body temperature 2021-06-19 00:00:00 37.17 Cindi [facility] Body height 2021-06-18 19:35:00 162.6 cm [facility] Body weight 2021-06-18 19:35:00 106.142 kg [facility] BMI 2021-06-18 19:35:00 40.17 kg/m2 [facility] Systolic blood pressure 2021-04-05 13:45:00 123 mm[Hg] [facility] Diastolic blood pressure 2021-04-05 13:45:00 86 mm[Hg] [facility] Heart rate 2021-04-05 13:45:00 78 /min [facility] Body temperature 2021-04-05 13:45:00 36.72 Cindi [facility] Respiratory rate 2021-04-05 13:45:00 18 /min [facility] Body height 2021-04-05 13:45:00 162.6 cm [facility] Body weight 2021-04-05 13:45:00 106.142 kg [facility] BMI 2021-04-05 13:45:00 40.17 kg/m2 [facility] Systolic blood pressure 2021-03-29 14:19:00 134 mm[Hg] [facility] Diastolic blood pressure 2021-03-29 14:19:00 89 mm[Hg] [facility] Heart rate 2021-03-29 14:19:00 88 /min [facility] Body temperature 2021-03-29 14:19:00 36.89 Cindi [facility] Respiratory rate 2021-03-29 14:19:00 18 /min [facility] Body height 2021-03-29 14:19:00 162.6 cm [facility] weight 2021-03-29 14:19:00 108.047 kg [facility] BMI 2021-03-29 14:19:00 40.89 kg/m2 [facility] Systolic blood pressure 2021-03-10 19:16:00 134 mm[Hg] [facility] Diastolic blood pressure 2021-03-10 19:16:00 85 mm[Hg] [facility] Heart rate 2021-03-10 19:16:00 83 /min [facility] Body temperature 2021-03-10 19:16:00 36.94 Cindi [facility] Respiratory rate 2021-03-10 19:16:00 18 /min [facility] Body height 2021-03-10 19:16:00 162.6 cm [facility] Body weight 2021-03-10 19:16:00 107.14 kg [facility] BMI 2021-03-10 19:16:00 40.54 kg/m2 [facility] Systolic blood pressure 2021-02-24 19:05:00 139 mm[Hg] [facility] Diastolic blood pressure 2021-02-24 19:05:00 94 mm[Hg] [facility] Heart rate 2021-02-24 19:05:00 81 /min [facility] Body temperature 2021-02-24 19:04:00 36.78 Cindi [facility] Respiratory rate 2021-02-24 19:04:00 18 /min [facility] Body height 2021-02-24 19:04:00 162.6 cm [facility] Body weight 2021-02-24 19:04:00 107.049 kg [facility] BMI 2021-02-24 19:04:00 40.51 kg/m2 [facility] Systolic blood pressure 2021-02-22 10:00:00 138 mm[Hg] [facility] Diastolic blood pressure 2021-02-22 10:00:00 100 mm[Hg] [facility] Heart rate 2021-02-22 10:00:00 71 /min [facility] Respiratory rate 2021-02-22 10:00:00 13 /min [facility] Oxygen saturation in Arterial blood by Pulse oximetry 2021-02-22 10:00:00 98 /min [facility] Body temperature 2021-02-22 04:21:04 37.28 Cindi [facility] Body height 2021-02-22 02:24:00 162.6 cm [facility] Body weight 2021-02-22 02:24:00 104.327 kg [facility] BMI 2021-02-22 02:24:00 39.48 kg/m2 [facility] Systolic blood pressure 2021-01-27 20:31:00 145 mm[Hg] [facility] Diastolic blood pressure 2021-01-27 20:31:00 91 mm[Hg] [facility] Heart rate 2021-01-27 20:31:00 84 /min [facility] Body temperature 2021-01-27 20:25:00 36.83 Cindi [facility] Respiratory rate 2021-01-27 20:25:00 18 /min [facility] Body height 2021-01-27 20:25:00 162.6 cm [facility] Body weight 2021-01-27 20:25:00 108.41 kg [facility] BMI 2021-01-27 20:25:00 41.02 kg/m2 [facility] Systolic blood pressure 2021-01-19 22:16:47 128 mm[Hg] [facility] Diastolic blood pressure 2021-01-19 22:16:47 89 mm[Hg] [facility] Heart rate 2021-01-19 22:16:47 71 /min [facility] Body temperature 2021-01-19 22:16:47 37.72 Cindi [facility] Respiratory rate 2021-01-19 22:16:47 18 /min [facility] Oxygen saturation in Arterial blood by Pulse oximetry 2021-01-19 22:16:47 100 /min [facility] Body weight 2021-01-19 18:09:00 106.142 kg [facility] BMI 2021-01-19 18:09:00 40.17 kg/m2 [facility] Systolic blood pressure 2020-11-11 01:09:43 147 mm[Hg] [facility] Diastolic blood pressure 2020-11-11 01:09:43 96 mm[Hg] [facility] Heart rate 2020-11-11 01:09:43 86 /min [facility] Body temperature 2020-11-11 01:09:43 37.28 Cindi [facility] Respiratory rate 2020-11-11 01:09:43 18 /min [facility] Oxygen saturation in Arterial blood by Pulse oximetry 2020-11-11 01:09:43 100 /min [facility] Body weight 2020-11-11 00:06:00 106.142 kg [facility] BMI 2020-11-11 00:06:00 40.17 kg/m2 [facility] Systolic blood pressure 2020-11-11 01:09:43 147 mm[Hg] [facility] Diastolic blood pressure 2020-11-11 01:09:43 96 mm[Hg] [facility] Heart rate 2020-11-11 01:09:43 86 /[facility] Body temperature 2020-11-11 01:09:43 37.28 Cindi [facility] Respiratory rate 2020-11-11 01:09:43 18 /min [facility] Oxygen saturation in Arterial blood by Pulse oximetry 2020-11-11 01:09:43 100 /min [facility] Body weight 2020-11-11 00:06:00 106.142 kg [facility] BMI 2020-11-11 00:06:00 40.17 kg/m2 [facility] Systolic blood pressure 2019-12-16 21:22:00 132 mm[Hg] [facility] Diastolic blood pressure 2019-12-16 21:22:00 87 mm[Hg] [facility] Heart rate 2019-12-16 21:22:00 83 /min [facility] Body height 2019-12-16 21:22:00 162.6 cm [facility] Body weight 2019-12-16 21:22:00 106.142 kg [facility] BMI 2019-12-16 21:22:00 40.17 kg/m2 [facility] Systolic blood pressure 2019-12-16 21:22:00 132 mm[Hg] [facility] Diastolic blood pressure 2019-12-16 21:22:00 87 mm[Hg] [facility] Heart rate 2019-12-16 21:22:00 83 /min [facility] Body height 2019-12-16 21:22:00 162.6 cm [facility] Body weight 2019-12-16 21:22:00 106.142 kg [facility] BMI 2019-12-16 21:22:00 40.17 kg/m2 [facility] Procedures Procedure Date / Time Performed Performing Clinician Source ASSIGNMENT OF BENEFITS 2023-10-03 03:40:11 Docto r Unassigned, [place] [facility] RAPID STREP SCREEN FOR GROUP A 2023-10-03 02:55:00 Luke Maurer [facility] RAPID INFLUENZA A/B 2023-10-03 02:55:00 Brice Maurer [facility] COVID-19 (ID NOW RAPID TESTING) 2023-10-03 02:55:00 Luke Maurer [facility] CONSENT/REFUSAL FOR DIAGNOSIS AND TREATMENT 2023-10-03 02:16:20 Doctor Unassigned, [place] [facility] REFERRAL- REQUEST/RESPONSE 2022-12-20 05:01:00 Doctor Unassigned, [place] [facility] NOTICE OF PRIVACY PRACTICES 2021-10-31 18:23:05 Doctor Unassigned, [place] [facility] CONSENT/REFUSAL FOR DIAGNOSIS AND TREATMENT 2021-10-31 18:20:02 Doctor Unassigned, [place] [facility] CT ABDOMEN PELVIS W CONTRAST 2021-06-18 22:53:18 Nohemi Dinh [facility] ASSIGNMENT OF BENEFITS 2021-06-18 20:28:15 Docto r Unassigned, [place] [facility] XR ABDOMEN 1 VW 2021-06-18 20:23:37 Karlee Gomez [facility] POCT TEST 2021-06-18 20:10:00 Berkley Gomez ra [facility] URINALYSIS 2021-06-18 20:09:00 [facility] 2021-06-18 20:08:00 Karlee Gomez Un [facility] HEPATIC FUNCTION PANEL (27560) (ALB,T.PRO,BILI T,BU/BC,ALT,AST,ALK PHOS) 2021-06-18 20:08:00 Karlee Gomez [facility] BASIC METABOLIC PANEL (NA, K, CL, CO2, GLUCOSE, BUN, CREATININE, CA) 2021-06-18 20:08:00 Karlee Gomez [facility] CBC WITH DIFF 2021-06-18 20:08:00 Karlee Gomez [facility] CONSENT/REFUSAL FOR DIAGNOSIS AND TREATMENT 2021-06-18 19:15:28 Doctor Unassigned, [place] [facility] POCT TEST 2021-03-29 14:12:00 Tasha De Oliveira [facility] DECORATION CHECKER CLINIC ULTRASOUND 2021-03-29 05:01:00 Doc tor Unassigned, [place] [facility] POCT TEST 2021-02-24 00:00:00 Tasha De Oliveira [facility] COMP. METABOLIC PANEL (78547) 2021-02-22 04:38:00 Fredo Hogue [facility] CT ABDOMEN PELVIS W CONTRAST 2021-02-22 04:14:23 Riri Isaacs [facility] LIPASE 2021-02-22 03:30:00 Fredo Hogue [facility] CBC WITH DIFF 2021-02-22 03:30:00 Fredo Hogue [facility] URINALYSIS 2021-02-22 03:30:00 Fredo Hogue S [facility] POCT TEST 2021-02-22 03:30:00 Fredo Hogue [facility] CONSENT/REFUSAL FOR DIAGNOSIS AND TREATMENT 2021-02-22 02:09:58 Doctor Unassigned, [place] [facility] ASSIGNMENT OF BENEFITS 2021-01-27 20:14:09 Docto r Unassigned, [place] [facility] REFERRAL- REQUEST/RESPONSE 2021-01-22 05:01:00 Doctor Unassigned, [place] [facility] CT ABDOMEN PELVIS W CONTRAST 2021-01-19 21:04:54 Sam Evans [facility] POCT TEST 2021-01-19 20:54:00 Sam Evans [facility] URINALYSIS 2021-01-19 20:38:00 Sam Evans [facility] COMP. METABOLIC PANEL (00314) 2021-01-19 20:36:00 Sam Evans [facility] CBC WITH DIFF 2021-01-19 20:36:00 Sam Evans [facility] NOTICE OF PRIVACY PRACTICES 2021-01-19 18:00:58 Doctor Unassigned, [place] [facility] CONSENT/REFUSAL FOR DIAGNOSIS AND TREATMENT 2021-01-19 17:56:54 Doctor Unassigned, [place] [facility] URINALYSIS 2020-11-11 00:46:00 Nohemi Dinh [facility] NOTICE OF PRIVACY PRACTICES 2020-11-11 00:01:32 Doctor Unassigned, [place] [facility] CONSENT/REFUSAL FOR DIAGNOSIS AND TREATMENT 2020-11-10 23:59:08 Doctor Unassigned, [place] [facility] INSURANCE 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 2020-02-20 05:01:00 Doc tor Unassigned, [place] [facility] AUTHORIZATION FOR RELEASE OF PHI 2020-02-10 05:01:00 Doctor Unassigned, [place] [facility] INSURANCE 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 2020-01-31 05:01:00 Doc tor Unassigned, [place] [facility] XR KNEE <3 VW RIGHT 2019-12-16 21:34:01 Maia Shrestha [facility] ASSIGNMENT OF BENEFITS 2019-12-16 21:15:03 Docto r Unassigned, [place] [facility] Encounters Start Date/Time End Date/Time Encounter Type Admission Type Attending [facility] Care Facility Care Department Encounter ID Source 2021-08-02 23:28:18 Emergency [facility] [id number] [facility] 2021-08-01 20:45:33 Emergency [facility] [id number] [facility] 2021-08-01 14:07:05 Emergency [facility] [id number] [facility] 2021-07-31 22:40:16 Emergency [facility] [id number] [facility] 2023-10-06 00:00:00 2023-10-06 00:00:00 Outpatient GC_GCBZW_Ka diyala_S PRIV PRIV [id number] [facility] 2023-10-02 20:39:00 2023-10-02 22:12:00 Emergency X LUKE MAURER [facility] ERT [id number] [facility] 2023-10-02 20:39:00 2023-10-02 22:12:00 Emergency Luke Maurer [facility] 1.2.840.114 350.1.13.10 4.2.7.2.686 [id number] [facility] 2023-09-08 00:00:00 2023-09-08 00:00:00 Outpatient GC_GCBZW_Ka diyala_S PRIV PRIV [id number] [facility] 2023-07-31 00:00:00 2023-07-31 00:00:00 Outpatient GC_GCBZW_Ka diyala_S PRIV PRIV [id number] [facility] 2023-07-27 00:00:00 2023-07-27 00:00:00 Outpatient GC_GCBZW_Ka diyala_S PRIV PRIV [id number] [facility] 2023-01-25 09:30:00 2023-01-25 09:30:00 Outpatient KEYSHA SANZ KEYSHA [facility] [id number] [facility] 2023-01-11 10:30:00 2023-01-11 10:30:00 Outpatient KEYSHA SANZ KEYSHA [facility] [id number] [facility] 2022-12-26 10:05:34 2022-12-26 10:05:34 Outpatient [facility] [id number] Sorto 2022-12-20 00:00:00 2022-12-20 00:00:00 Orders Only Doctor Unassigned, [place] [facility] 1.840.114 350.1.13.10 4.2.7.2.686 [id number] [id number] [facility] 2022-12-19 09:12:54 2022-12-19 09:12:54 Outpatient [facility] [id number] Ti Sorto 2021-11-02 14:32:00 2021-11-02 14:48:00 Emergency EM HarrisJose [facility] SKYLA [id number] [facility] 2021-11-02 14:32:00 2021-11-02 14:48:00 Emergency EM HarrisJose [facility] [id number] [facility] 2021-10-31 12:33:00 2021-10-31 13:01:00 Emergency KARLEE JOINER [facility] ERT [id number] [facility] 2021-10-31 12:33:00 2021-10-31 13:01:00 Emergency Karlee Gomez [facility] 1.840.114 350.1.13.10 4.2.7.2.686 [id number] [facility] 2021-10-31 00:00:00 2021-10-31 00:00:00 Orders Only Doctor Unassigned, [place] [facility] 1.2840.114 350.1.13.10 4.2.7.2.686 [id number] [id number] [facility] 2021-06-18 14:44:00 2021-06-18 19:42:00 Emergency Nohemi Dinh [facility] 1.2.114 350.1.13.10 4.2.7.2.686 [id number] 084 [id number] [facility] 2021-06-14 00:00:00 2021-06-14 00:00:00 Telephone Mony Ortega Cal[facility] Me[facility] 1.2.114 350.1.13.10 4.2.7.2.686 [id number] [facility] 2021-04-28 13:30:00 2021-04-28 13:30:00 Outpatient TASHA MORROW [facility] [id number] [facility] 2021-04-15 14:00:00 2021-04-15 14:00:00 Outpatient R KILEY STROUD [facility] [id number] [facility] 2021-04-12 08:00:00 2021-04-12 08:00:00 Outpatient R KEYSHA VIVEROS [facility] [id number] [facility] 2021-04-05 08:36:11 2021-04-05 09:07:09 Office Visit Tasha De Oliveira [facility] 1..114 350.1.13.10 4.2.7.2.686 [id number] [facility] 2021-04-05 08:45:00 2021-04-05 08:45:00 Outpatient R TASHA DE OLIVEIRA [facility] [id number] [facility] 2021-04-02 00:00:00 2021-04-02 00:00:00 Telephone Tasha De Oliveira [facility] 1.84.114 350.1.13.10 4.2.7.2.686 [id number] [facility] 2021-03-29 08:54:36 2021-03-29 09:35:27 Office Visit Tasha De Oliveira [facility] 1.2.840.114 350.1.13.10 4.2.7.2.686 [id number] [facility] 2021-03-29 09:00:00 2021-03-29 09:00:00 [id number] 2021-03-29 00:00:00 2021-03-29 00:00:00 Orders Only Doctor Unassigned, [place] [facility] 1.2.840.114 350.1.13.10 4.2.7.2.686 [id number] [id number] [facility] 2021-03-22 00:00:00 2021-03-22 00:00:00 Patient Secure Msg Doctor Unassigned, [place] [facility] 1.2.840.114 350.1.13.10 4.2.7.2.686 [id number] [facility] 2021-03-19 11:00:00 2021-03-19 11:00:00 Outpatient R TASHA DE OLIVEIRA [facility] [id number] [facility] 2021-03-18 00:00:00 2021-03-18 00:00:00 Telephone Tasha De Oliveira [facility] 1.2.840.114 350.1.13.10 4.2.7.2.686 [id number] [facility] 2021-03-10 13:52:09 2021-03-10 14:30:52 Office Visit Tasha De Oliveira [facility] 1.2.840.114 350.1.13.10 4.2.7.2.686 [id number] [facility] 2021-03-10 14:15:00 2021-03-10 14:15:00 Outpatient R TASHA DE OLIVEIRA [facility] [id number] [facility] 2021-03-02 00:00:00 2021-03-02 00:00:00 Telephone Tasha De Oliveira [facility] 1.2.840.114 350.1.13.10 4.2.7.2.686 [id number] 134 [id number] [facility] 2021-02-24 13:22:56 2021-02-24 14:21:21 Office Visit Tasha De Oliveira [facility] 1.2.840.114 350.1.13.10 4.2.7.2.686 [id number] 134 [id number] [facility] 2021-02-24 13:30:00 2021-02-24 13:30:00 Outpatient R TASHA DE OLIVEIRA [facility] [id number] [facility] 2021-02-21 22:04:00 2021-02-22 05:32:00 [facility] 1.2.840.114 350.1.13.10 4.2.7.2.686 [id number] [id number] [facility] 2021-01-27 15:15:37 2021-01-27 16:25:23 Office Visit Tasha De Oliveira [facility] 1.2.840.114 350.1.13.10 4.2.7.2.686 [id number] [facility] 2021-01-27 15:00:00 2021-01-27 15:00:00 Outpatient R TASHA DE [facility] [id number] [facility] 2021-01-27 00:00:00 2021-01-27 00:00:00 Orders Only Doctor Unassigned, [place] [facility] 1.2.840.114 350.1.13.10 4.2.7.2.686 [id number] [id number] [facility] 2021-01-22 00:00:00 2021-01-22 00:00:00 Orders Only Doctor Unassigned, [place] [facility] 1.2.840.114 350.1.13.10 4.2.7.2.686 [id number] [id number] [facility] 2021-01-19 13:10:00 2021-01-19 17:27:00 Emergency Sam Evans [facility] 1.2.840.114 350.1.13.10 4.2.7.2.686 [id number] [id number] [facility] 2020-12-21 00:00:00 2020-12-21 00:00:00 Patient Outreach Fredrick Mina [facility] 1.2.840.114 350.1.13.10 4.2.7.2.686 [id number] [facility] 2020-11-10 18:08:00 2020-11-10 20:09:00 Emergency Nohemi Dinh [facility] 1.2.840.114 350.1.13.10 4.2.7.2.686 [id number] [id number] [facility] 2020-11-10 18:08:00 2020-11-10 20:09:00 Emergency Nohemi Dinh [facility] 1.2.840.114 350.1.13.10 4.2.7.2.686 [id number] 2020-02-20 00:00:00 2020-02-20 00:00:00 Orders Only Doctor Unassigned, [place] [facility] 1.2.840.114 350.1.13.10 4.2.7.2.686 [id number] [id number] [facility] 2020-02-20 00:00:00 2020-02-20 00:00:00 Orders Only Doctor Unassigned, [place] [facility] 1.2.840.114 350.1.13.10 4.2.7.2.686 [id number] [id number] 2020-02-10 00:00:00 2020-02-10 00:00:00 Orders Only Doctor Unassigned, [place] [facility] 1.2.840.114 350.1.13.10 4.2.7.2.686 [id number] [id number] [facility] 2020-02-10 00:00:00 2020-02-10 00:00:00 Orders Only Doctor Unassigned, [place] [facility] 1.2.840.114 350.1.13.10 4.2.7.2.686 [id number] [id number] 2020-01-31 00:00:00 2020-01-31 00:00:00 Orders Only Doctor Unassigned, [place] [facility] 1.2.840.114 350.1.13.10 4.2.7.2.686 [id number] [id number] [facility] 2020-01-31 00:00:00 2020-01-31 00:00:00 Orders Only Doctor Unassigned, [place] [facility] 1.2.840.114 350.1.13.10 4.2.7.2.686 [id number] [id number] 2020-01-29 00:00:00 2020-01-29 00:00:00 Telephone Anton Williamson [facility] 1.2.840.114 350.1.13.10 4.2.7.2.686 [id number] [facility] 2020-01-29 00:00:00 2020-01-29 00:00:00 Telephone Anton Williamson [facility] [place] 1.2.840.114 350.1.13.10 4.2.7.2.686 [id number] 2020-01-28 00:00:00 2020-01-28 00:00:00 Telephone Anton Williamson [facility] [place] 1.2.840.114 350.1.13.10 4.2.7.2.686 [id number] [facility] 2020-01-28 00:00:00 2020-01-28 00:00:00 Telephone Anton Williamson [facility] [place] 1.2.840.114 350.1.13.10 4.2.7.2.686 [id number] 2019-12-26 00:00:00 2019-12-26 00:00:00 Telephone Anton Williamson [facility] [place] 1.2.840.114 350.1.13.10 4.2.7.2.686 [id number] [facility] 2019-12-26 00:00:00 2019-12-26 00:00:00 Telephone Anton Williamson [facility] [place] 1.2.840.114 350.1.13.10 4.2.7.2.686 [id number] [facility] 2019-12-26 00:00:00 2019-12-26 00:00:00 Telephone Anton Williamson [facility] [place] 1.2.840.114 350.1.13.10 4.2.7.2.686 [id number] 2019-12-26 00:00:00 2019-12-26 00:00:00 Telephone Anton Williamson [facility] [place] 1.2.840.114 350.1.13.10 4.2.7.2.686 [id number] 2019-12-16 16:15:48 2019-12-17 10:13:00 Office Visit Anton Williamson [facility] [place] 1.2.840.114 350.1.13.10 4.2.7.2.686 [id number] [facility] 2019-12-16 16:15:48 2019-12-17 10:13:00 Office Visit Anton Williamson [facility] douglas Vazquez 1.2.840.114 350.1.13.10 4.2.7.2.686 [id number] 2019-12-16 16:34:01 2019-12-16 23:59:00 Outpatient R FADY MAIA [facility] [id number] [facility] 2019-12-16 16:34:00 2019-12-16 23:59:00 Hospital Encounter Maia Shrestha [facility] 1.2.840.114 350.1.13.10 4.2.7.2.686 [id number] [facility] 2019-12-16 00:00:00 2019-12-16 00:00:00 Orders Only Doctor Unassigned, [place] [facility] 1.2.840.114 350.1.13.10 4.2.7.2.686 [id number] 009 [id number] [facility] Results Test Description Test Time Test Comments Results Result Co mments Source CT/NG, NAAT, [id number] 19:38:21* Test Item Value Reference Range Interpretation Comme nts CHLAMYDIA, NAAT, URINE (test code = 05859) NEGATIVE NEGATIVE Testing is perfo rmed with Tanja ROSA 6800/8800 systems usingreal-time polymerase chain reaction (PCR) method. A negative result does not exclude low level infection, specimensampling error, or collection error. GONORRHEA, NAAT, URINE (test code = 76647) NEGATIVE NEGATIVE Testing is perfo rmed with Tanja ROSA 6800/8800 systems usingreal-time polymerase chain reaction (PCR) method. A negative result does not exclude low level infection, specimensampling error, or collection error. HPV HIGH RISK WITH GENOTYPE, [id number] 16:46:52* Test Item Value Reference Range Interpretation Comme nts HPV HIGH RISK INTERP (test code = 23608) NEGATIVE NEGATIVE HPV 16 (test code = 91563) NEGATIVE HPV 18 (test code = 49745) NEGATIVE HPV, HR, OTHER GENOTYPES (test code = 83195) NEGATIVE Testing methodol ogy is real-time PCR [...] level of infection or specimen sampling error. [facility] has important pathology staff changes effective 11/30/2022. New pathology staff will provide uninterrupted, excellent patient care and clinical consultation. See URL: [email or web address]. UNLESS OTHERWISE INDICATED, ALL TESTING PERFORMED AT [facility] [address] [place] [address] ASSISTANT PROFESSOR OF ART: DEVIN BURGOS M.D. [place] NUMBER [id number] [facility] [place]. [id number] VAGINAL PATHOGENS DNA [id number] 15:21:32* Test Item Value Reference Range Interpretation Comme nts MARIYA SPECIES (test code = 14913) NEGATIVE NEGATIVE G. VAGINALIS (test code = 55037) POSITIVE NEGATIVE A T. VAGINALIS (test code = 37587) NEGATIVE NEGATIVE Note: The [facility] VPIII Microbial Identification Testis a DNA probe test intended for use in the detectionand identification of Mariya species, Gardnerellavaginalis and Trichomonas vaginalis nucleic acid. HIV 1/2 4TH GEN, RFLX [id number] 04:19:46* Test Item Value Reference Range Interpretation Comme nts HIV 1/2 4TH GEN, RFLX CONF ( test code = 3514) NON-REACTIVE NON-REACTIVE [id number] 03:59:02* Test Item Value Reference Range Interpretation Comme nts RPR RESULT (test code = 3501) NON-REACTIVE NON-REACTIVE RPR TITER (test code = 3500) NOT INDIC. TITER NOT INDIC. [facility] has importan t pathology staff changes effective 11/30/2022. New pathology staff will provide uninterrupted, excellent patient care and clinical consultation. See URL: [email or web address] UNLESS OTHERWISE INDICATED, ALL TESTING PERFORMED AT [facility] [address] [place] [address] ASSISTANT PROFESSOR OF ART: DEVIN BURGOS M.D. CLIA NUMBER [id number] [facility] [place]. [id number] HEPATIC FUNCTION PANEL (54505) (ALB,T.PRO,BILI T,BU/BC,ALT,AST,ALK PHOS) 2021-06-18 20:35:07* Test Item Value Reference Range Interpretation Comme nts TOTAL BILI (test code = 0291614259) 0.3 mg/dL 0.1-1.1 BILI UNCON (test code = 7359083516) 0.3 mg/dL 0.1-1.1 BILI CONJ (test code = 4248162419) 0.0 mg/dL 0.0-0.3 T PROTEIN (test code = 2341440514) 7.6 g/dL 6.3-8.2 ALBUMIN (test code = 4687188279) 4.3 g/dL 3.5-5.0 ALK PHOS (test code = 0233340209) 77 U/L 34-122 ALTv (test code = 1742-6) 42 U/L 5-35 H AST(SGOT) (test code = 5600031931) 33 U/L 13-40 Lab Interpretation (test cod e = 22299-7) [facility] (ALB,T.PRO,BILI T,BU/BC,ALT,AST,ALK PHOS)2021-06-18 20:35:07* Test Item Value Reference Range Interpretation Comme nts TOTAL BILI (test code = 5517460372) 0.3 mg/dL 0.1-1.1 BILI UNCON (test code = 7937343804) 0.3 mg/dL 0.1-1.1 BILI CONJ (test code = 5829899002) 0.0 mg/dL 0.0-0.3 T PROTEIN (test code = 6382043741) 7.6 g/dL 6.3-8.2 ALBUMIN (test code = 1561823059) 4.3 g/dL 3.5-5.0 ALK PHOS (test code = 0692014643) 77 U/L 34-122 ALTv (test code = 1742-6) 42 U/L 5-35 H AST(SGOT) (test code = 2542342003) 33 U/L 13-40 Lab Interpretation (test cod e = 50048-3) Abnormal [facility] METABOLIC PANEL (NA, K, CL, CO2, GLUCOSE, BUN, CREATININE, CA)2021-06-18 20:34:47* Test Item Value Reference Range Interpretation Comme nts NA (test code = 3541470636) 136 mmol/L 135-145 K (test code = 3865900465) 4.3 mmol/L 3.5-5.0 CL (test code = 9454910204) 105 mmol/L 98-108 CO2 TOTAL (test code = 9611099694) 24 mmol/L 23-31 AGAP (test code = 0049125110) 2-16 BUN (test code = 2267621762) 9 mg/dL 7-23 GLUCOSE (test code = 1754255954) 112 mg/dL 70-110 H CREATININE (test code = 5790164316) 0.80 mg/dL 0.50-1.04 CALCIUM (test code = 2468944454) 8.8 mg/dL 8.6-10.6 eGFR (test code = 4180446085) mL/min/1.73m2 ISAMAR (test code = ISAMAR) Association [...] imaging tests). Lab Interpretation (test code = 90468-8) [facility]:34:47* Test Item Value Reference Range Interpretation Comme nts LIPASE (test code = 7878534182) 74 U/L 0-220 Lab Interpretation (test cod e = 53484-2) [facility] (NA, K, CL, CO2, GLUCOSE, BUN, CREATININE, CA)2021-06-18 20:34:47* Test Item Value Reference Range Interpretation Comme nts NA (test code = 2660951794) 136 mmol/L 135-145 K (test code = 3381380158) 4.3 mmol/L 3.5-5.0 CL (test code = 8674304205) 105 mmol/L 98-108 CO2 TOTAL (test code = 7192613347) 24 mmol/L 23-31 AGAP (test code = 5804389652) 2-16 BUN (test code = 1469321583) 9 mg/dL 7-23 GLUCOSE (test code = 2653730073) 112 mg/dL 70-110 H CREATININE (test code = 1243316247) 0.80 mg/dL 0.50-1.04 CALCIUM (test code = 8234461692) 8.8 mg/dL 8.6-10.6 eGFR (test code = 4781384033) mL/min/1.73m2 ISAMAR (test code = ISAMAR) Association [...] imaging tests). Lab Interpretation (test code = 97531-2) [facility] 20:34:47* Test Item Value Reference Range Interpretation Comme nts LIPASE (test code = 1910336262) 74 U/L 0-220 Lab Interpretation (test cod e = 13435-0) Normal [facility] WITH [id number] 20:27:26* Test Item Value Reference Range Interpretation Comme nts WBC (test code = 6690-2) See_Comment [Automated Fotolog] The system which generated this result transmitted reference range: 4.30 - 11.10 10*3/?L. The reference range was not used to interpret this result as normal/abnormal. RBC (test code = 789-8) See_Comment [Automated [employer]otolog] The system which generated this result transmitted [...] 32.2 g/dL 31.6-35.1 RDW-SD (test code = 12801-5) 46.2 fL 39.0-49.9 RDW-CV (test code = 788-0) 14.2 % 12.0-15.5 PLT (test code = 777-3) See_Comment [Automated messa ge] The system which generated this result transmitted reference range: 166 - 358 10*3/?L. The reference range was not used to interpret this result as normal/abnormal. MPV (test code = 13277-6) 11.3 fL 9.5-12.9 NRBC/100 WBC (test code = 3916212248) See_Comment [Automated me ssage] The system which generated this result transmitted reference range: 0.0 - 10.0 /100 WBCs. The reference range was not used to interpret this result as normal/abnormal. NRBC x10^3 (test code = 5794967790) <0.01 See_Comment [Automated me ssage] The system which generated this result transmitted reference range: 10*3/?L. The reference range was not used to interpret this result as normal/abnormal. GRAN MAT (NEUT) % (test code = 770-8) 65.2 % IMM GRAN % (test code = 9190578467) 0.20 % LYMPH % (test code = 736-9) 24.7 % MONO % (test code = 5905-5) 6.4 % EOS % (test code = 713-8) 2.6 % BASO % (test code = 706-2) 0.9 % GRAN MAT x10^3(ANC) (test code = 4397069914) 3.80 10*3/uL 1.88-7.09 IMM GRAN x10^3 (test code = 5941037293) <0.03 0.00-0.06 LYMPH x10^3 (test code = 731-0) 1.44 10*3/uL 1.32-3.29 MONO x10^3 (test code = 742-7) 0.37 10*3/uL 0.33-0.92 EOS x10^3 (test code = 711-2) 0.15 10*3/uL 0.03-0.39 BASO x10^3 (test code = 704-7) 0.05 10*3/uL 0.01-0.07 [facility] WITH [id number] 20:27:26* Test Item Value Reference Range Interpretation Comme nts WBC (test code = 6690-2) See_Comment [Automated messa ge] The system which generated this result transmitted reference range: 4.30 - 11.10 10*3/?L. The reference range was not used to interpret this result as normal/abnormal. RBC (test code = 789-8) See_Comment [Automated [employer] ge] The system which generated this result [...] 32.2 g/dL 31.6-35.1 RDW-SD (test code = 37267-9) 46.2 fL 39.0-49.9 RDW-CV (test code = 788-0) 14.2 % 12.0-15.5 PLT (test code = 777-3) See_Comment [Automated messa ge] The system which generated this result transmitted reference range: 166 - 358 10*3/?L. The reference range was not used to interpret this result as normal/abnormal. MPV (test code = 62005-7) 11.3 fL 9.5-12.9 NRBC/100 WBC (test code = [id number]) See_Comment [Automated [employer] ssage] The system which generated this result transmitted reference range: 0.0 - 10.0 /100 WBCs. The reference range was not used to interpret this result as normal/abnormal. NRBC x10^3 (test code = [id number]) <0.01 See_Comment [Automated me ssage] The system which generated this result transmitted reference range: 10*3/?L. The reference range was not used to interpret this result as normal/abnormal. GRAN MAT (NEUT) % (test code = 770-8) 65.2 % IMM GRAN % (test code = 3399146082) 0.20 % LYMPH % (test code = 736-9) 24.7 % MONO % (test code = 5905-5) 6.4 % EOS % (test code = 713-8) 2.6 % BASO % (test code = 706-2) 0.9 % GRAN MAT x10^3(ANC) (test code = 1577200221) 3.80 10*3/uL 1.88-7.09 IMM GRAN x10^3 (test code = 6457389619) <0.03 0.00-0.06 LYMPH x10^3 (test code = 731-0) 1.44 10*3/uL 1.32-3.29 MONO x10^3 (test code = 742-7) 0.37 10*3/uL 0.33-0.92 EOS x10^3 (test code = 711-2) 0.15 10*3/uL 0.03-0.39 BASO x10^3 (test code = 704-7) 0.05 10*3/uL 0.01-0.07 [facility] [id number] 20:10:00* Test Item Value Reference Range Interpretation Comme nts POCT PREG (test code = 1605) negative On board controls acceptable with C Line (test code = 3574) present Lab Interpretation (test cod e = 93874-5) Normal [facility] [id number] 20:10:00* Test Item Value Reference Range Interpretation Comme nts POCT PREG (test code = 1605) negative On board controls acceptable with C Line (test code = 3574) present Lab Interpretation (test cod e = 18680-6) Normal [facility] [id number] 14:12:00* Test Item Value Reference Range Interpretation Comme nts POCT PREG (test code = 1605) Negative On board controls acceptable with C Line (test code = 3574) Yes POCT PREG LOT # (test code = 3575) POCT PREG TEST DATE (test code = 3576) ISAMAR (test code = ISAMAR) accurate developme nt and interpretation of all internal controls [facility] [id number] 14:12:00* Test Item Value Reference Range Interpretation Comme nts POCT PREG (test code = 1605) Negative On board controls acceptable with C Line (test code = 3574) Yes POCT PREG LOT # (test code = 3575) POCT PREG TEST DATE (test code = 3576) ISAMAR (test code = ISAMAR) accurate developme nt and interpretation of all internal controls [facility] [id number] 19:07:00* Test Item Value Reference Range Interpretation Comme nts POCT PREG (test code = 1605) Negative On board controls acceptable with C Line (test code = 3574) Yes POCT PREG LOT # (test code = 3575) POCT PREG TEST DATE ( test code = 3576) Lab Interpretation (test cod e = 51991-6) Normal [facility] [id number] 19:07:00* Test Item Value Reference Range Interpretation Comme nts POCT PREG (test code = 1605) Negative On board controls acceptable with C Line (test code = 3574) Yes POCT PREG LOT # (test code = 3575) POCT PREG TEST DATE ( test code = 3576) Lab Interpretation (test cod e = 93719-2) Normal [facility] [id number] 19:07:00* Test Item Value Reference Range Interpretation Comme nts POCT PREG (test code = 1605) Negative On board controls acceptable with C Line (test code = 3574) Yes POCT PREG LOT # (test code = 3575) POCT PREG TEST DATE ( test code = 3576) Lab Interpretation (test cod e = 13180-0) [facility] [id number] 05:20:14* Test Item Value Reference Range Interpretation Comme nts NA (test code = 2255898187) 139 mmol/L 135-145 K (test code = 0240864724) 2.8 mmol/L 3.5-5.0 LL CL (test code = 5670837640) 113 mmol/L 98-108 H CO2 TOTAL (test code = 8568065339) 21 mmol/L 23-31 L AGAP (test code = 9428395300) 2-16 BUN (test code = 1672615290) 10 mg/dL 7-23 GLUCOSE (test code = 7651895216) 68 mg/dL 70-110 L CREATININE (test code = 4466664905) 0.47 mg/dL 0.50-1.04 L TOTAL BILI (test code = 8613838155) 0.3 mg/dL 0.1-1.1 CALCIUM (test code = 6902207926) 6.7 mg/dL 8.6-10.6 L T PROTEIN (test code = 0836402569) 5.1 g/dL 6.3-8.2 L ALBUMIN (test code = 7722737541) 2.8 g/dL 3.5-5.0 L ALK PHOS (test code = 2003039676) 54 U/L 34-122 ALTv (test code = 1742-6) 10 U/L 5-35 AST(SGOT) (test code = 0627531701) 17 U/L 13-40 eGFR (test code = 1158271005) mL/min/1.73m2 ISAMAR (test code = ISAMAR) Association [...] imaging tests). Lab Interpretation (test code = 41988-5) Abnormal [facility] with [id number] 04:44:04* Test Item Value Reference Range Interpretation Comme nts WBC (test code = 6690-2) See_Comment [Automated [employer]] The system which generated this result transmitted reference range: 4.30 - 11.10 10*3/?L. The reference range was not used to interpret this result as normal/abnormal. RBC (test code = 789-8) See_Comment [Automated [employer]] The system which generated this result transmitted [...] 33.0 g/dL 31.6-35.1 RDW-SD (test code = 12616-3) 45.1 fL 39.0-49.9 RDW-CV (test code = 788-0) 13.8 % 12.0-15.5 PLT (test code = 777-3) See_Comment [Automated [employer]] The system which generated this result transmitted reference range: 166 - 358 10*3/?L. The reference range was not used to interpret this result as normal/abnormal. MPV (test code = 15623-1) 12.0 fL 9.5-12.9 NRBC/100 WBC (test code = 2554486636) See_Comment [Automated me ssage] The system which generated this result transmitted reference range: 0.0 - 10.0 /100 WBCs. The reference range was not used to interpret this result as normal/abnormal. NRBC x10^3 (test code = 4784626449) <0.01 See_Comment [Automated me ssage] The system which generated this result transmitted reference range: 10*3/?L. The reference range was not used to interpret this result as normal/abnormal. GRAN MAT (NEUT) % (test code = 770-8) 50.4 % IMM GRAN % (test code = 8085596908) 0.50 % LYMPH % (test code = 736-9) 37.3 % MONO % (test code = 5905-5) 7.2 % EOS % (test code = 713-8) 3.6 % BASO % (test code = 706-2) 1.0 % GRAN MAT x10^3(ANC) (test code = 0219291785) 2.94 10*3/uL 1.88-7.09 IMM GRAN x10^3 (test code = 3576529971) 0.03 10*3/uL 0.00-0.06 LYMPH x10^3 (test code = 731-0) 2.18 10*3/uL 1.32-3.29 MONO x10^3 (test code = 742-7) 0.42 10*3/uL 0.33-0.92 EOS x10^3 (test code = 711-2) 0.21 10*3/uL 0.03-0.39 BASO x10^3 (test code = 704-7) 0.06 10*3/uL 0.01-0.07 [facility] 04:29:33* Test Item Value Reference Range Interpretation Comme nts APPEARANCE (test code = 3683163280) Hazy Clear A COLOR (test code = 6851870450) Yellow Yellow PH (test code = 3152141397) 4.8-8.0 SP GRAVITY (test code = 6565618988) 1.003-1.030 GLU U QUAL (test code = 6429617825) Normal Normal BLOOD (test code = 5828654711) Negative Negative KETONES (test code = 3104016304) Negative Negative PROTEIN (test code = 2887-8) 30 mg/dL Negative A UROBILIN (test code = 0626198059) 2.0 mg/dL Normal A BILIRUBIN (test code = 7332258939) Negative Negative NITRITE (test code = 9584301535) Negative Negative LEUK SOULEYMANE (test code = 4255043477) Negative Negative RBC/HPF (test code = 8494232618) <1 See_Comment [Automated messa ge] The system which generated this result transmitted reference range: 0 - 3 HPF. The reference range was not used to interpret this result as normal/abnormal. WBC/HPF (test code = 3532407784) <1 See_Comment [Automated messa ge] The system which generated this result transmitted reference range: 0 - 5 HPF. The reference range was not used to interpret this result as normal/abnormal. BACTERIA (test code = 9199745726) Negative Negative MUCOUS (test code = 7931613137) Moderate Negative LPF A AMORPHOUS (test code = 9935998281) Rare Rare HPF SQ EPITH (test code = 2182189341) HPF Lab Interpretation (test code = 89601-1) Abnormal [facility], [id number] 04:21:21* Test Item Value Reference Range Interpretation Comme nts LIPASE (test code = 3188245878) 69 U/L 0-220 Lab Interpretation (test cod e = 09218-0) [facility] [id number] 03:30:00* Test Item Value Reference Range Interpretation Comme nts POCT PREG (test code = 1605) negative On board controls acceptable with C Line (test code = 3574) present Lab Interpretation (test cod e = 71492-4) [facility]OLIC PANEL (50408)2021-01-19 21:36:57* Test Item Value Reference Range Interpretation Comme nts NA (test code = 7241582588) 139 mmol/L 135-145 K (test code = 9186997940) 4.2 mmol/L 3.5-5.0 CL (test code = 8460858665) 106 mmol/L 98-108 CO2 TOTAL (test code = 7062340323) 24 mmol/L 23-31 AGAP (test code = 3719184371) 2-16 BUN (test code = 7132470369) 20 mg/dL 7-23 GLUCOSE (test code = 9709077049) 89 mg/dL 70-110 CREATININE (test code = 0408957349) 0.73 mg/dL 0.50-1.04 TOTAL BILI (test code = 3717592559) 0.6 mg/dL 0.1-1.1 CALCIUM (test code = 5586159336) 9.0 mg/dL 8.6-10.6 T PROTEIN (test code = 9807908522) 7.5 g/dL 6.3-8.2 ALBUMIN (test code = 7741576219) 4.5 g/dL 3.5-5.0 ALK PHOS (test code = 2444218867) 87 U/L 34-122 ALTv (test code = 1742-6) 24 U/L 5-35 AST(SGOT) (test code = 6159621767) 42 U/L 13-40 H eGFR (test code = 0910483806) mL/min/1.73m2 ISAMAR (test code = ISAMAR) Association [...] imaging tests). Lab Interpretation (test code = 32079-5) [facility]normal [facility] 21:25:51* Test Item Value Reference Range Interpretation Comme nts APPEARANCE (test code = 6790824218) Hazy Clear A COLOR (test code = 6790006268) Yellow Yellow PH (test code = 6805848628) 4.8-8.0 SP GRAVITY (test code = 0412628894) 1.003-1.030 H GLU U QUAL (test code = 8930962223) Normal Normal BLOOD (test code = 0758307660) Negative Negative KETONES (test code = 2849968748) 5 mg/dL Negative A PROTEIN (test code = 2887-8) 30 mg/dL Negative A UROBILIN (test code = 6149592427) 2.0 mg/dL Normal A BILIRUBIN (test code = 2238249793) Negative Negative NITRITE (test code = 7688375658) Negative Negative LEUK SOULEYMANE (test code = 3115284611) Negative Negative RBC/HPF (test code = 1265105314) See_Comment H [Automated [employer]] The system which generated this result transmitted reference range: 0 - 3 HPF. The reference range was not used to interpret this result as normal/abnormal. WBC/HPF (test code = 9668029757) See_Comment [[employer]] The system which generated this result transmitted reference range: 0 - 5 HPF. The reference range was not used to interpret this result as normal/abnormal. BACTERIA (test code = 1931260107) Negative Negative MUCOUS (test code = 0143198612) Marked Negative LPF A SQ EPITH (test code = 8535078351) HPF Lab Interpretation (test code = 04713-1) Abnormal [facility] P[facility] W [id number] 21:15:43CT Abdomen and Pelvis with intravenous contrast. [...] a large 5.5 cm size partially calcified uterinefibroid.[facility] WITH DIFF 2021-01-19 21:09:09* Test Item Value Reference Range Interpretation Comme nts WBC (test code = 6690-2) See_Comment [Automated [employer]] The system which generated this result transmitted reference range: 4.30 - 11.10 10*3/?L. The reference range was not used to interpret this result as normal/abnormal. RBC (test code = 789-8) See_Comment [Automated [employer]] The system which generated this result [...] 32.4 g/dL 31.6-35.1 RDW-SD (test code = 93718-6) 45.5 fL 39.0-49.9 RDW-CV (test code = 788-0) 14.0 % 12.0-15.5 PLT (test code = 777-3) See_Comment [Automated [employer]] The system which generated this result transmitted reference range: 166 - 358 10*3/?L. The reference range was not used to interpret this result as normal/abnormal. MPV (test code = 41883-5) 11.4 fL 9.5-12.9 NRBC/100 WBC (test code = 3766578118) See_Comment [Automated [employer] ssage] The system which generated this result transmitted reference range: 0.0 - 10.0 /100 WBCs. The reference range was not used to interpret this result as normal/abnormal. NRBC x10^3 (test code = 7153294311) <0.01 See_Comment [Automated [employer] ssage] The system which generated this result transmitted reference range: 10*3/?L. The reference range was not used to interpret this result as normal/abnormal. GRAN MAT (NEUT) % (test code = 770-8) 68.5 % IMM GRAN % (test code = 2611510072) 0.40 % LYMPH % (test code = 736-9) 23.1 % MONO % (test code = 5905-5) 6.1 % EOS % (test code = 713-8) 1.2 % BASO % (test code = 706-2) 0.7 % GRAN MAT x10^3(ANC) (test code = 4240420877) 5.18 10*3/uL 1.88-7.09 IMM GRAN x10^3 (test code = 1229424752) 0.03 10*3/uL 0.00-0.06 LYMPH x10^3 (test code = 731-0) 1.75 10*3/uL 1.32-3.29 MONO x10^3 (test code = 742-7) 0.46 10*3/uL 0.33-0.92 EOS x10^3 (test code = 711-2) 0.09 10*3/uL 0.03-0.39 BASO x10^3 (test code = 704-7) 0.05 10*3/uL 0.01-0.07 [facility] [id number] 20:54:00* Test Item Value Reference Range Interpretation Comme nts POCT PREG (test code = 1605) neg On board controls acceptable with C Line (test code = 3574) yes POCT PREG LOT # (test code = 3575) [id number] POCT PREG TEST DATE ( test code = 3576) 08/31/2022 Lab Interpretation (test cod e = 48346-0) [facility] 01:31:00* Test Item Value Reference Range Interpretation Comme nts APPEARANCE (test code = 9091373476) Clear Clear COLOR (test code = 5342698309) Yellow Yellow PH (test code = 3525709420) 4.8-8.0 SP GRAVITY (test code = 8832513200) 1.003-1.030 GLU U QUAL (test code = 3959489687) Normal Normal BLOOD (test code = 9020504548) Negative Negative KETONES (test code = 9474476363) 5 mg/dL Negative A PROTEIN (test code = 2887-8) Negative Negative UROBILIN (test code = 2829710224) 2.0 mg/dL Normal A BILIRUBIN (test code = 9434705107) Negative Negative NITRITE (test code = 0663559997) Negative Negative LEUK SOULEYMANE (test code = 7135625928) Negative Negative RBC/HPF (test code = 2890799097) See_Comment [Automated messa ge] The system which generated this result transmitted reference range: 0 - 3 HPF. The reference range was not used to interpret this result as normal/abnormal. WBC/HPF (test code = 4161143794) See_Comment [Automated messa ge] The system which generated this result transmitted reference range: 0 - 5 HPF. The reference range was not used to interpret this result as normal/abnormal. BACTERIA (test code = 6872105359) Negative Negative MUCOUS (test code = 9964243173) Slight Negative LPF A SQ EPITH (test code = 2615435875) <1 HPF Lab Interpretation (test code = 98134-2) Abnormal [facility] HospitalXR KNEE <3 VW [id number] 21:49:55 Narrowing on right knee 4mm, [facility] Date/Time Note Provider Source 2023-10-02 22:11:21 Pt given printed and verbal discharge instructions regarding viral syndrome, diarrhea, acute cough, and nasal congestion Pt verbalized understanding of instructions, pt awake alert oriented, resp reg unlabored, skin w/d, color appropriate for race, moves all ext well,pt encouraged to follow up with pcp Advised to seek medical attention for new/prolonged/worsening of symptoms No adverse reaction to meds given in ER noted upon discharge PIV d'cd, dressing to site, catheter in tact. Awake, alert oriented, resp reg unlabored, skin w/d, pt leaving amb with steady gait, in no apparent distress A Yeung RN [facility] 2023-10-02 20:32:11 Patient ambulatory to ED c/o cold symptoms that started two days ago - cough, sore throat, runny nose, fatigue. Last medication taken was allergy medication and Tylenol around 1700. A Woody RN [facility] 2021-11-02 14:47:00 [facility] ([facility]) EMERGENCY PROVIDER REPORT REPORT#:[id number] REPORT STATUS: Signed DATE:11/02/21 TIME:1447 PATIENT: SHAJI WEEKS UNIT #: [id number] ROOM/BED: : 85 AGE: 36 SEX: F PCP PHYS: No Primary or Family Physician SERVICE AUTHOR: Jose Harris MD * ALL edits or amendments must be made on the electronic/computer document * HPI-Dental/Mouth Prob Free Text HPI Notes Free Text HPI Notes Patient presents to emergency department for dental abscess [...] make symptoms better nothing makes symptoms worse. General Initial Greet Date/Time 11/02/21 1434 Presentation Chief Complaint Gum swelling Review of Systems ROS Statements All systems rev neg except as marked. Basic Review of Systems Basic ROS EYES: No redness, CV: No chest pain, : No dysuria/frequency, MS: No ext swelling/pain, HEM: No bleeding/bruising, SKIN: No rash, NEURO: No change MS , NEURO: No focal deficit Focused Review of Systems Constitutional Denies: Chills, Fatigue, Fever, Malaise. Ears/Nose/Throat Reports: Mouth pain, Toothache. Denies: Ear drainage bilat, Ear ringing bilat, Earache bilat, Hearing loss bilat. Respiratory Denies: Cough, non-productive, Cough, productive, Shortness of breath. GI Denies: Abdominal pain, Anorexia, Diarrhea, Nausea, Vomiting. Past Medical History - Adult Stated Complaint ABSCESS RUPTURED ON GUMS Allergies Coded Allergies: tramadol (RASH, HIVES 10/14/18) Home Medications Reported Medications No Known Home Medications Other Social History Local resident Physical Exam Vital Signs Vital Signs First Documented: Result Date Time Pulse Ox 100 11/02 1433 B/P 182/89 11/02 1433 B/P Mean 120 11/02 1433 O2 Delivery Room air 11/02 143 Temp 98.1 11/02 143 Pulse 88 11/02 1433 Resp 17 11/02 1433 Last Documented: Result Date Time Pulse Ox 100 11/02 1433 B/P 182/89 11/02 1433 B/P Mean 120 / 1433 O2 Delivery Room air 11/02 1433 Temp 98.1 11/02 1433 Pulse 88 / 1433 Resp 17 11/02 1433 Review of Vital Signs Reviewed Basic Physical Exam Basic PE GEN: Well appearing/NAD, HEAD: Atraumatic/NC, EYES: PERRL, conj clear, RESP: No resp distress, CV: Reg rate rhythm, ABD: Soft/non-tender, EXT: No gross abnormality, SKIN: No rashes, warm/dry, NEURO: alert oriented, NEURO: gross movement NL Focused PE General/Const General/Const Awake, Alert, No acute distress, Well appearing, Well developed MS Head Head Atraumatic, Normocephalic Eyes Eyes Atraumatic, EOMI, No nystagmus Ears/Nose/Throat Ears/Nose/Throat Atraumatic, Airway patent Text/Dict Notes Abscess with draining pus above tooth #8 MS Neck Neck Atraumatic, Supple, No meningismus, Full range of motion, No adenopathy, No swelling Resp/Chest Respiratory/Chest Atraumatic, Breath sounds NL, Breath sounds = bilat, No respiratory distress, No rales, No rhonchi Cardiovascular Cardiovascular Heart rate NL, Regular rhythm, Cap refill not delayed, Peripheral circulation NL Neurologic Neurologic Oriented X3, Speech NL, No motor deficits, No sensory deficits Patient Discharge Departure Vital Signs/Condition Vital Signs First Documented: Result Date Time Pulse Ox 100 11/02 1433 B/P 182/89 11/02 1433 B/P Mean 120 11/02 1433 O2 Delivery Room air 11/02 1433 Temp 98.1 11/02 1433 Pulse 88 11/02 1433 Resp 17 11/02 1433 Last Documented: Result Date Time Pulse Ox 100 11/02 1433 B/P 182/89 11/02 1433 B/P Mean 120 / 1433 O2 Delivery Room air 11/02 1433 Temp 98.1 11/02 1433 Pulse 88 02/ 1433 Resp 17 11/02 1433 All vital signs available at the time of this entry have been reviewed. Clinical Impression Clinical Impression Primary Impression: Dental abscess Disposition Decision Other )( Time 1448 )( Date 11/02/21 GREGORY-screened discharged Yes Discharge/Care Plan (Auto) Prescriptions Current Visit Scripts No Known Home Medications at 0723 RPT #: [id number] END OF REPORT HCAPM"
== END 2024-05-17 09:51 | disposition home or self-care (01) ==
LOC: ER 07:59
DX: R07.9 Chest pain, unspecified (principal); I10 Essential (primary) hypertension; F41.9 Anxiety disorder, unspecified; Z86.73 Personal history of transient ischemic attack (TIA), and cerebral infarction without residual deficits
CPT/HCPCS: 36415; 71045; 80048; 84484; 85025; 93005; 96374; 99285

== ENCOUNTER 2024-08-22 10:29 | Emergency (ER) | payer OTHER ==
[2024-08-22] MEDS ORDERED: IBUPROFEN 200 MG TAB PO ONE (11:05)
[2024-08-22] MEDS ORDERED: IBUPROFEN 400 MG TAB ONE (11:05)
--- NOTE | 2024-08-22 11:35 | RAD REPORT ---
EXAMINATION: XR Foot Left 3 View CLINICAL INDICATION: Female, 39 years old. [facility] MAIN PAIN Bed Name: TECHNIQUE: 3 view radiographs of the left foot were obtained. COMPARISON: No prior exam. FINDINGS: No evidence of fracture or dislocation. Normal alignment. No evidence of arthropathy or oth er focal bone lesion. Soft tissues are unremarkable. No soft tissue swelling. No significant degenerative changes. IMPRESSION: No acute or significant abnormalities.
--- NOTE | 2024-08-22 11:42 | ER ---
Nurse's Notes [facility] Name: Kristina Christensen Age: 39 yrs Sex: Female : 1985 Arrival Date: 08/22/2024 Time: 10:29 Bed 26 Private MD: Diagnosis: Contusion of left foot;Contusion of left ankle Presentation: 08/22 10:50 Chief complaint: Patient states: yesterday at work I got my left heel stuck in the tm6 turnstyle. It is still hurting, difficult to walk. Coronavirus screen: Client denies travel out of the [place] in the last 14 days. Ebola Screen: Patient negative for fever greater than or equal to 101.5 degrees Fahrenheit, and additional compatible Ebola Virus Disease symptoms Patient denies exposure to infectious person. Patient denies travel to an Ebola-affected area in the 21 days before illness onset. No symptoms or risks identified at this time. Initial Sepsis Screen: Does the patient meet any 2 criteria? No. Patient's initial sepsis screen is negative. Does the patient have a suspected source of infection? No. Patient's initial sepsis screen is negative. Risk Assessment: Do you want to hurt yourself or someone else? Patient reports no desire to harm self or others. Onset of symptoms was August 21, 2024. 10:50 Method Of Arrival: Ambulatory 6 10:50 Acuity: GAURAV 4 tm6 Triage Assessment: 10:52 General: Appears in no apparent distress. Behavior is calm, cooperative. Pain: tm6 Complains of pain in heel of left foot Pain currently is 8 out of 10 on a pain scale. Pain began 1 day ago. EENT: No signs and/or symptoms were reported regarding the EENT system. Neuro: Level of Consciousness is awake, alert, obeys commands, Oriented to person, place, time, situation. Cardiovascular: Patient's skin is warm and dry. Respiratory: Airway is patent Respiratory effort is even, unlabored, Respiratory pattern is regular, symmetrical. GI: No signs and/or symptoms were reported involving the gastrointestinal system. Abdomen is flat, non-distended. : No signs and/or symptoms were reported regarding the genitourinary system. Derm: No signs and/or symptoms reported regarding the dermatologic system. Musculoskeletal: Reports pain in heel of left foot since yesterday. Pain is 8 out of 10 on a pain scale. TRENCH DIGGER: 12:24 LMP N/A - control method, Not me1 Historical: - Allergies: 10:52 tramadol; tm6 - PMHx: 10:52 Anxiety; Cancer; remission from cervical cancer for 3.5 years; Cerebrovascular tm6 accident; Crohn's; Hypertension; HYPOGLYCEMIA; Migraine; Seizures; - PSHx: 10:52 Cholecystectomy; Ligation of fallopian tube; hernia repair (Ligation of fallopian tube);tm6 - Immunization history:: Client reports receiving the 2nd dose of the Covid vaccine. - Infectious Disease History:: Denies. - Social history:: Smoking status: Reported history of juuling and/or vaping. Patient uses alcohol, only on a social basis. - Family history:: not pertinent. Screenin:08 [facility] ED Fall Risk Assessment (Adult) History of falling in the last 3 months, tm6 including since admission No falls in past 3 months (0 pts) Confusion or Disorientation No (0 pts) Intoxicated or Sedated No (0 pts) Impaired Gait No (0 pts) Mobility Assist Device Used No (0 pt) Altered Elimination No (0 pt) Score/Fall Risk Level 0 - 2 = Low Risk Oriented to surroundings, Maintained a safe environment, Educated pt \T\ family on fall prevention, incl call for assistance when getting out of bed. Abuse screen: Denies threats or abuse. Denies injuries from another. Nutritional screening: No deficits noted. Tuberculosis screening: No symptoms or risk factors identified. Assessment: 11:47 Reassessment: see triage assessment. tm6 11:48 Reassessment: Patient and/or family updated on plan of care and expected duration. Pain tm6 level reassessed. Patient is alert, oriented x 3, equal unlabored respirations, skin warm/dry/pink. Vital Signs: 10:50 BP 162 / 119; Pulse 85; Resp 17; Temp 98.8(O); Pulse Ox 100% on R/A; MAP 133 mmHg; tm6 Weight 106.14 kg; Height 5 ft. 4 in. ; Pain 8/10; 11:09 BP 177 / 103; Pulse 81; Pulse Ox 100% on R/A; MAP 123 mmHg; tm6 11:47 BP 176 / 105; Pulse 83; Resp 16; Temp 98.8; Pulse Ox 100% on R/A; MAP 126 mmHg; Pain tm6 5/10; 12:00 BP 163 / 102; Pulse 80; Resp 16; Temp 98.4; Pulse Ox 100% ; me1 10:50 Body Mass Index 40.17 (106.14 kg, 162.56 cm) tm6 10:50 Pain Scale: Adult tm6 11:47 Pain Scale: Adult tm6 ED Course: 10:33 Patient arrived in ED. mr 10:38 Eron Bowden MD is Attending Physician. [facility] 10:52 Triage completed. tm6 10:52 Arm band placed on right wrist. tm6 10:53 Allergy band placed. tm6 11:08 Provided Education on: use of call de leon; plan of care. Client placed on continuous tm6 cardiac and pulse oximetry monitoring. NIBP monitoring applied. Pulse ox on. NIBP on. Door closed. Noise minimized. 11:08 Wound care: located on heel of left foot ice pack applied. Patient tolerated well. tm6 11:10 Foot Left 3 View XRAY In Process Unspecified. EDMN 11:42 Miguel Fleming MD is Referral Physician. mary beth 11:47 Mo Mayo, ASCENCION is Primary Nurse. tm6 12:24 No provider procedures requiring assistance completed. Patient did not have IV access me1 during this emergency room visit. Administered Medications: 11:07 Drug: Ibuprofen PO 600 mg PO once Route: PO; tm6 11:48 Follow up: Response: No adverse reaction tm6 Medication: 12:24 VIS not applicable for this client. me1 Outcome: 11:42 Discharge ordered by . [facility] 12:24 Discharged to home ambulatory, ga1 12:24 Condition: stable 12:24 Discharge instructions given to patient, Instructed on discharge instructions, follow up and referral plans. Demonstrated understanding of instructions, follow-up care, medications, Prescriptions given X 3, 12:24 Patient left the ED. me1 Signatures: Dispatcher [employer] Eron Duncan MD MD cha Rivera, Mary, Reg Reg SanchezbillSally, RN RN me1 Mo Mayo, RN RN tm6
--- NOTE | 2024-08-22 11:42 | EDPHYS ---
Physician Documentation [facility] Name: Kristina Christensen Age: 39 yrs Sex: Female : 1985 Arrival Date: 08/22/2024 Time: 10:29 Bed 26 Private MD: KHARI Physician Eron Bowden HPI: 08/22 10:52 This 39 yrs old Black Female presents to ER via Ambulatory with complaints of Foot mary beth Injury. 10:52 The patient presents with a contusion, decreased range of motion, pain, swelling. The mary beth complaints affect the left foot. Context: resulted from door hitting. Modifying factors: The symptoms are alleviated by elevation of extremity, ice packs, the symptoms are aggravated by weight bearing, movement, wearing shoes. Associated signs and symptoms: The patient has no apparent associated signs or symptoms. Severity of symptoms: At their worst the symptoms were moderate, in the emergency department the symptoms are unchanged. The patient has not experienced similar symptoms in the past. 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 - Infectious Disease History:: Denies. - Social history:: Smoking status: Reported history of juuling and/or vaping. Patient uses alcohol, only on a social basis. - Family history:: not pertinent. ROS: 10:52 Constitutional: Negative for fever, chills, and weight loss, Eyes: Negative for injury, mary beth pain, redness, and discharge, ENT: Negative for injury, pain, and discharge, Neck: Negative for injury, pain, and swelling, Cardiovascular: Negative for chest pain, palpitations, and edema, Respiratory: Negative for shortness of breath, cough, wheezing, and pleuritic chest pain, Abdomen/GI: Negative for abdominal pain, nausea, vomiting, diarrhea, and constipation, Back: Negative for injury and pain, : Negative for injury, bleeding, discharge, and swelling, Skin: Negative for injury, rash, and discoloration, Neuro: Negative for headache, weakness, numbness, tingling, and seizure, Psych: Negative for depression, anxiety, suicide ideation, homicidal ideation, and hallucinations, Allergy/Immunology: Negative for hives, rash, and allergies, Endocrine: Negative for neck swelling, polydipsia, polyuria, polyphagia, and marked weight changes, Hematologic/Lymphatic: Negative for swollen nodes, abnormal bleeding, and unusual bruising, 10:52 MS/extremity: Positive for contusion, decreased range of motion, pain, swelling, tenderness, Exam: 10:52 Constitutional: This is a well developed, well nourished patient who is awake, alert, mary beth and in no acute distress. Head/Face: Normocephalic, atraumatic. Eyes: Pupils equal round and reactive to light, extra-ocular motions intact. Lids and lashes normal. Conjunctiva and sclera are non-icteric and not injected. Cornea within normal limits. Periorbital areas with no swelling, redness, or edema. ENT: Nares patent. No nasal discharge, no septal abnormalities noted. Tympanic membranes are normal and external auditory canals are clear. Oropharynx with no redness, swelling, or masses, exudates, or evidence of obstruction, uvula midline. Mucous membranes moist. Neck: Trachea midline, no thyromegaly or masses palpated, and no cervical lymphadenopathy. Supple, full range of motion without nuchal rigidity, or vertebral point tenderness. No Meningismus. Chest/axilla: Normal chest wall appearance and motion. Nontender with no deformity. No lesions are appreciated. Cardiovascular: Regular rate and rhythm with a normal S1 and S2. No gallops, murmurs, or rubs. Normal PMI, no JVD. No pulse deficits. Respiratory: Lungs have equal breath sounds bilaterally, clear to auscultation and percussion. No rales, rhonchi or wheezes noted. No increased work of breathing, no retractions or nasal flaring. Abdomen/GI: Soft, non-tender, with normal bowel sounds. No distension or tympany. No guarding or rebound. No evidence of tenderness throughout. Back: No spinal tenderness. No costovertebral tenderness. Full range of motion. Skin: Warm, dry with normal turgor. Normal color with no rashes, no lesions, and no evidence of cellulitis. Neuro: Awake and alert, GCS 15, oriented to person, place, time, and situation. Cranial nerves II-XII grossly intact. Motor strength 5/5 in all extremities. Sensory grossly intact. Cerebellar exam normal. Normal gait. Psych: Awake, alert, with orientation to person, place and time. Behavior, mood, and affect are within normal limits. 10:52 Musculoskeletal/extremity: ROM: full active range of motion, full passive range of motion, limited active range of motion due to pain, limited passive range of motion due to pain, Pulses: are normal with no appreciated deficits, Sensation intact. Compartment Syndrome exam of affected extremity: is normal. Weight bearing: able to fully bear weight, DVT Exam: negative Homans' sign noted on exam, no appreciated bluish discoloration, no erythema, no increased warmth, pain, swelling, tenderness, Vital Signs: 10:50 BP 162 / 119; Pulse 85; Resp 17; Temp 98.8(O); Pulse Ox 100% on R/A; MAP 133 mmHg; tm6 Weight 106.14 kg; Height 5 ft. 4 in. ; Pain 8/10; 11:09 BP 177 / 103; Pulse 81; Pulse Ox 100% on R/A; MAP 123 mmHg; tm6 11:47 BP 176 / 105; Pulse 83; Resp 16; Temp 98.8; Pulse Ox 100% on R/A; MAP 126 mmHg; Pain tm6 5/10; 12:00 BP 163 / 102; Pulse 80; Resp 16; Temp 98.4; Pulse Ox 100% ; me1 10:50 Body Mass Index 40.17 (106.14 kg, 162.56 cm) tm6 10:50 Pain Scale: Adult tm6 11:47 Pain Scale: Adult tm6 MDM: 10:38 Medical Screening Exam initiated [facility] 10:55 Differential diagnosis: fracture, sprain, arthritis, gout, cellulitis. Data reviewed: [facility] vital signs, nurses notes, radiologic studies, plain films. Consideration of Admission/Observation Escalation of care including admission/observation considered. I considered the following discharge prescriptions or medication management in the emergency department Medications were administered in the Emergency Department. See MAR. Independent interpretation of the following test(s) in the Emergency Department X-Ray: My interpretation is left foot, achilles intact. Test considered but Not performed: Ultrasound no us doppler. Historians other than the Patient: pt well informed. Care significantly affected by the following chronic conditions: Hypertension, Obesity, crohns, migraine. Counseling: I had a detailed discussion with the patient and/or guardian regarding the historical points, exam findings, and any diagnostic results supporting the discharge/admit diagnosis, the presence of at least one elevated blood pressure reading (>120/80) during this emergency department visit, lab results, radiology results, the need for outpatient follow up, for definitive care, a orthopedic surgeon. 08/22 10:52 Order name: Foot Left 3 View XRAY [facility] 08/22 10:52 Order name: Ice pack; Complete Time: 11:07 [facility] 08/22 10:52 Order name: Walking boot; Complete Time: 12:23 [facility] Administered Medications: : Drug: Ibuprofen PO 600 mg PO once Route: PO; tm6 11:48 Follow up: Response: No adverse reaction tm6 Disposition Summary: 08/22/24 11:42 Discharge Ordered Notes: Location: Home mary beth Problem: new mary beth Symptoms: have improved mary beth Condition: Stable mary beth Diagnosis - Contusion of left foot mary beth - Contusion of left ankle mary beth Followup: mary beth - With: Private Physician - When: 2 - 3 days - Reason: Recheck today's complaints, Continuance of care, Re-evaluation by your physician Followup: mary beth - With: Miguel Fleming MD - When: 2 - 3 days - Reason: Recheck today's complaints, Continuance of care, Re-evaluation by your physician Discharge Instructions: - Discharge Summary Sheet mary beth - Contusion mary beth - Foot Contusion mary beth - Contusion, [id number] mary beth - Foot Contusion, [id number] [facility] Forms: - Medication Reconciliation Form mary beth - Antibiotic Education mary beth - Prescription Opioid Use mary beth - Patient Portal Instructions [facility] - Leadership Thank You Letter mary beth - Work release form me1 Prescriptions: - acetaminophen-codeine 300-30 mg Oral tablet - take 2 tablet ORAL route every 6 hours; 20 tablet; Refills: 0, Product mary beth Selection Permitted - diclofenac sodium 50 mg Oral tablet, delayed release (enteric coated) - take 1 tablet ORAL route every 8 hours; 30 tablet; Refills: 0, Product mary beth Selection Permitted - Medrol (Pedro Luis) 4 mg Oral Tablets, Dose Pack - take 1 tablet ORAL route as directed - follow package instructions; 1 packet; mary beth Refills: 0, Product Selection Permitted Signatures: Dispatcher [employer] Eron Duncan MD MD cha Masterson, Tawney, ASCENCION RN tm6
[2024-08-22 13:50] VITALS: O2SAT 100
[2024-08-22 14:03] VITALS: BP 163/102; TEMP 98.4
== END 2024-08-22 12:24 | disposition home or self-care (01) ==
LOC: ER 10:29
DX: S90.32XA Contusion of left foot, initial encounter (principal); S90.02XA Contusion of left ankle, initial encounter
CPT/HCPCS: 99284